=== PATIENT | male | born 1940 | race Hispanic/Latino ===

== ENCOUNTER 2019-01-12 14:28 | Emergency (ER) | payer MEDICARE ==
--- OUTSIDE RECORDS SUMMARY | 2019-01-12 14:34 | XMS REPORT | Clinical Summary ---
:1940 Author Organization [facility] Address [address] [place] [address] Care Team Providers Name Role Phone Donte Rosas MD Primary Care Provider Allergies Active Allergy Reactions Severity Noted Date Comments Darci Inhibitors 07/28/2016 Medications Medication Sig Dispensed Refills Start Date End Date Status mirtazapine (REMERON) 15 0 05/30/2016 Active MG tablet amLODIPine (NORVASC) 2.5 0 05/24/2016 Active mg tablet levoFLOXacin (LEVAQUIN) Take 250 mg by 0 Active 500 MG tablet mouth. tamsulosin (FLOMAX) 0.4 mg Take 0.4 mg by 0 Active capsule,extended release mouth. 24hr fludrocortisone 0.1 mg 0 07/07/2016 Active tablet Active Problems Not on file Social History Tobacco Use Types Packs/Day Years Used Date Never Assessed Sex Assigned at Date Recorded Not on file Job Start Date Occupation Industry Not on file Not on file Not on file Travel History Travel Start Travel End No recent travel history available. Last Filed Vital Signs Not on file Plan of Treatment Health Maintenance Due Date Last Done Comments SHINGLES VACCINES (#1) 1988 65+ PNEUMOCOCCAL VACCINE (1 of 2 - PCV13) 2003 INFLUENZA VACCINE 02/17/2019 Results Not on fileafter 01/11/2018 Advance Directives Patient has advance care planning documents on file. For more information, please contact:Jhonatan [id number] [place] [address]
--- OUTSIDE RECORDS SUMMARY | 2019-01-12 14:35 | XMS REPORT | Clinical Summary ---
:1940 Author Organization [facility] Address [address] [place] [address] Care Team Providers Name Role Phone Donte Rosas MD Primary Care Provider Donte Rosas MD Unavailable Allergies Active Allergy Reactions Severity Noted Date Comments Darci Inhibitors Other (See Comments) High 07/27/2015 Hyperkalemia per [facility] file Medications Medication Sig Dispensed Refills Start Date End Date Status mirtazapine (REMERON) Take 15 mg by 0 Active 15 MG tablet mouth nightly. SODIUM BICARBONATE Take by mouth 0 Active ORAL 3 (three) times daily. acetaminophen Take 500 mg 0 Active (TYLENOL) 500 MG by mouth tablet every 6 (six) hours as needed for Pain. aspirin 81 MG EC Take 81 mg by 0 Active tablet mouth daily. amLODIPine (NORVASC) Take 1 tablet 30 tablet 1 10/03/2017 Active 2.5 MG tablet (2.5 mg total) by mouth daily. tamsulosin (FLOMAX) Take 0.4 mg 0 Active 0.4 mg Cp24 24 hr by mouth capsule daily. citalopram (CELEXA) Take 20 mg by 0 Active 20 MG tablet mouth daily. gabapentin Take 300 mg 0 Active (NEURONTIN) 300 MG by mouth capsule daily. cilostazol (PLETAL) Take 50 mg by 0 Active 50 MG tablet mouth 2 (two) times daily. clopidogrel (PLAVIX) Take 75 mg by 0 Active 75 mg tablet mouth daily. amLODIPine (NORVASC) Take 2.5 mg 0 Active 2.5 MG tablet by mouth daily. gabapentin 2 (two) times 0 03/21/2018 Active (NEURONTIN) 300 MG daily. capsule citalopram (CELEXA) Take 20 mg by 0 Active 20 MG tablet mouth daily. aspirin 81 MG EC Take 81 mg by 0 Active tablet mouth daily. cilostazol (PLETAL) Take 50 mg by 0 Active 50 MG tablet mouth 2 (two) times daily. sodium bicarbonate Take 1 tablet 0 Active 650 MG tablet by mouth 3 (three) times daily. citalopram (CELEXA) Take 20 mg by 0 Discontinued 10 MG tablet mouth daily . 8 fludrocortisone Take 1 tablet 15 tablet 1 01/31/2017 Discontinued (FLORINEF) 0.1 mg (0.1 mg 8 tablet total) by mouth every other day. atorvastatin Take 1 tablet 30 tablet 1 10/03/2017 (LIPITOR) 10 MG (10 mg total) 9 tablet by mouth nightly. clopidogrel (PLAVIX) Take 1 tablet 30 tablet 1 10/03/2017 Discontinued 75 mg tablet (75 mg total) 8 by mouth daily. HYDROcodone-acetamino Take 1 tablet 30 tablet 0 01/31/2018 phen (NORCO 10-325) by mouth 8 10-325 mg per tablet every 4 (four) hours as needed for up to 10 days. Max Daily Amount: 6 tablets acetaminophen-codeine Take 1 tablet 15 tablet 0 04/12/2018 (TYLENOL #3) 300-30 by mouth 8 mg per tablet every 6 (six) hours as needed for up to 10 days. Max Daily Amount: 4 tablets ibuprofen Take 1 tablet 15 tablet 0 04/12/2018 (ADVIL,MOTRIN) 400 MG (400 mg 8 tablet total) by mouth every 8 (eight) hours as needed for Pain for up to 3 days. cephalexin (KEFLEX) Take 1 14 capsule 0 04/12/2018 500 MG capsule capsule (500 8 mg total) by mouth 2 (two) times daily for 7 days. Active Problems Problem Noted Date Claudication 10/02/2017 Eosinophilia 01/29/2017 Lower extremity pain, left 01/28/2017 Critical lower limb ischemia 01/23/2017 Cellulitis of foot 01/17/2017 PAD (peripheral artery disease) 01/16/2017 Cellulitis and abscess of foot 01/15/2017 HTN (hypertension) 01/11/2016 Hydronephrosis 01/11/2016 Depression 01/11/2016 Urinary tract infection, site unspecified 01/10/2016 Urinary obstruction 07/27/2015 Hyperkalemia 06/28/2015 Hyponatremia 06/28/2015 Chronic kidney disease, stage 3 06/28/2015 Cellulitis of left foot 06/28/2015 Onychomycosis 06/28/2015 CKD (chronic kidney disease) stage 2, GFR 60-89 ml/min 06/28/2015 DOMINIQUE (acute kidney injury) 06/01/2015 Bladder cancer 08/21/2014 Encounters Date Type Specialty Care Team Description 08/31/2018 Outside Orders Central Scheduling Antolin Valera Malignant neoplasm of overlapping sites of bladder (HCC) (Primary Dx); MD Nikolai Prostate cancer (HCC); Calicectasis; Renal mass, right 04/12/2018 Emergency Emergency Medicine Polanco, Kiko Right hip pain ( Primary Dx); MD Connor Peripheral arterial disease ([facility]); Arterial stenosis ([facility]); Back pain, unspecified back location, unspecified back pain laterality , unspecified chronicity 01/28/2018 Surgery Filipe Marte BYPASS,POPLITEAL-TIBI MD Phil [place] 01/28/2018 Anesthesia Event Diamond Hand NP 01/28/2018 - Hospital Encounter Cardiology Filipe Marte DOMINIQUE (acute kidney injury) ([facility]); 01/31/2018 MD Phil PAD (peripheral artery disease) ([facility]); Beverly Harris At high risk for hemodynamic instability; MD Bradley Claudication ([facility]); Critical lower limb ischemia; Essential hypertension; Hyperlipidemia, unspecified hyperlipidemia type; Acute postoperative pain 01/18/2018 Hospital Encounter Pre-Admission Filipe Marte DOMINIQUE (acute kidney Testing MD Phil injury) ([facility]) 01/18/2018 Orders Only General Internal Medicine after 01/11/2018 Immunizations Name Dates Previously Given Next Due Pneumococcal Polysaccharide (Pneumovax) 06/29/2015 Social History Tobacco Use Types Packs/Day Years Used Date Never Assessed Alcohol Use Drinks/Week oz/Week Comments No Sex Assigned at Date Recorded Not on file Job Start Date Occupation Industry Not on file Not on file Not on file Travel History Travel Start Travel End No recent travel history available. Last Filed Vital Signs Vital Sign Reading Time Taken Blood Pressure 145/76 04/12/2018 2:46 PM CDT Pulse 55 04/12/2018 2:46 PM CDT Temperature 36 C (96.8 F) 04/12/2018 8:54 AM CDT Respiratory Rate 18 04/12/2018 2:46 PM CDT Oxygen Saturation 96% 04/12/2018 2:46 PM CDT Inhaled Oxygen Concentration - - Weight 81.6 kg (180 lb) 04/12/2018 8:54 AM CDT Height 162.6 cm (5' 4") 04/12/2018 8:54 AM CDT Body Mass Index 30.9 04/12/2018 8:54 AM CDT Plan of Treatment Not on file Implants Implanted Type Area Photo Editor Device Shelf Model / Identifier Expiration Serial / Date Lot Mynxgrip Vascular Closure Device Df Cardiovascular Left: [id number] 01/16 [id number] / Implanted: Qty: 1 on 01/30/2017 by Filipe Marte MD [facility] / [id number] Mynxgrip Vascular Closure Device Cardiovascular Left: CARDINAL [id number] 08/19/2019 / Implanted: Qty: 1 on 10/02/2017 by Filipe Marte MD [employer] / MARS [id number] Matrix Floseal Hemo W/O Ndl 10 [id number] - [id number] Cement/Filler/Ad Left: GARCIA:BIOSCI 06/22/2019 [id number] / Implanted: Qty: 1 on 01/28/2018 by Filipe Marte MD [employer] / [id number] Synergy Stents-Periphera BOSTON [id number] 05/27/2017 [id number] / Implanted: Qty: 1 on 01/30/2017 by Filipe Marte MD l [employer] / [id number] Promus Premier Stents-Periphera BOSTON [id number] 04/04/2018 [id number] / Implanted: Qty: 1 on 01/30/2017 by Filipe Marte MD l [employer] / [id number] Promus Premier Stents-Periphera [place]OSTON [id number] 01/19/2018 [id number] / Implanted: Qty: 1 on 01/30/2017 by Filipe Marte MD l [employer] / [id number] Promus Premier Stents-Periphera [place] [id number] 03/29/2018 [id number] / Implanted: Qty: 1 on 01/30/2017 by Filipe Marte MD l [employer] / [id number] Procedures Procedure Name Priority Date/Time Associated Comments Diagnosis RHYTHM STRIP - SCAN 04/13/2018 12:22 PM CDT PERIPHERAL VASCULAR 04/13/2018 12:22 REPORT - SCAN PM CDT CARDIAC CATH REPORT - 04/13/2018 12:22 SCAN PM CDT PERIPHERAL VASCULAR 04/13/2018 12:21 REPORT - SCAN PM CDT CARDIAC CATH REPORT - 04/13/2018 12:21 SCAN PM CDT RHYTHM STRIP - SCAN 04/13/2018 12:21 PM CDT TRANSFUSION SERVICE 04/13/2018 12:21 REPORT - SCAN PM CDT RHYTHM STRIP - SCAN 04/13/2018 12:21 PM CDT CARDIAC CATH REPORT - 04/13/2018 12:21 SCAN PM CDT RHYTHM STRIP - SCAN 04/13/2018 12:21 PM CDT PERIPHERAL VASCULAR 04/13/2018 12:21 REPORT - SCAN PM CDT RHYTHM STRIP - SCAN 04/13/2018 12:21 PM CDT RHYTHM STRIP - SCAN 04/13/2018 12:21 PM CDT RHYTHM STRIP - SCAN 04/13/2018 12:21 PM CDT RHYTHM STRIP - SCAN 04/13/2018 12:21 PM CDT RHYTHM STRIP - SCAN 04/13/2018 12:20 PM CDT RHYTHM STRIP - SCAN 04/13/2018 12:20 PM CDT RHYTHM STRIP - SCAN 04/13/2018 12:20 PM CDT RHYTHM STRIP - SCAN 04/13/2018 12:20 PM CDT ARTERIAL DOPPLER LEG, STAT 04/12/2018 11:51 Results for this RIGHT AM CDT procedure are in the results section. XR SPINE LUMBAR STAT 04/12/2018 10:01 Results for this COMPLETE MIN 4 VIEWS AM CDT procedure are in the results section. XR HIP RIGHT 2 VIEW STAT 04/12/2018 10:01 Results for this AM CDT procedure are in the results section. URINALYSIS W/ STAT 04/12/2018 9:47 Results for this MICROSCOPIC AM CDT procedure are in the results section. CBC W/PLT COUNT & STAT 04/12/2018 9:15 Results for this AUTO DIFFERENTIAL AM CDT procedure are in the results section. HEPATIC FUNCTION STAT 04/12/2018 9:15 Results for this PANEL AM CDT procedure are in the results section. CBC W/PLT COUNT & STAT 04/12/2018 9:15 Results for this AUTO DIFFERENTIAL AM CDT procedure are in the results section. BASIC METABOLIC PANEL STAT 04/12/2018 9:15 Results for this (7) AM CDT procedure are in the results section. PHOSPHORUS Routine 01/31/2018 4:47 Results for this AM CDT procedure are in the results section. MAGNESIUM Routine 01/31/2018 4:47 Results for this AM CDT procedure are in the results section. BASIC METABOLIC PANEL Routine 01/31/2018 4:47 Results for this (7) AM CDT procedure are in the results section. CBC (HEMOGRAM ONLY) Routine 01/31/2018 4:47 Results for this AM CDT procedure are in the results section. POCT-GLUCOSE METER Routine 01/30/2018 7:41 Results for this AM CDT procedure are in the results section. PHOSPHORUS Routine 01/30/2018 4:59 Results for this AM CDT procedure are in the results section. MAGNESIUM Routine 01/30/2018 4:59 Results for this AM CDT procedure are in the results section. BASIC METABOLIC PANEL Routine 01/30/2018 4:59 Results for this (7) AM CDT procedure are in the results section. CBC (HEMOGRAM ONLY) Routine 01/30/2018 4:59 Results for this AM CDT procedure are in the results section. POCT-GLUCOSE METER Routine 01/29/2018 9:26 Results for this PM CDT procedure are in the results section. PHOSPHORUS Routine 01/29/2018 3:25 Results for this AM CDT procedure are in the results section. MAGNESIUM Routine 01/29/2018 3:25 Results for this AM CDT procedure are in the results section. BASIC METABOLIC PANEL Routine 01/29/2018 3:25 Results for this (7) AM CDT procedure are in the results section. CBC (HEMOGRAM ONLY) Routine 01/29/2018 3:25 Results for this AM CDT procedure are in the results section. BASIC METABOLIC PANEL STAT 01/28/2018 2:38 Results for this (7) PM CDT procedure are in the results section. APTT STAT 01/28/2018 2:38 Results for this PM CDT procedure are in the results section. CBC (HEMOGRAM ONLY) STAT 01/28/2018 2:38 Results for this PM CDT procedure are in the results section. POCT-ACT Routine 01/28/2018 12:52 Results for this PM CDT procedure are in the results section. POCT-ACT Routine 01/28/2018 12:27 Results for this PM CDT procedure are in the results section. POCT-ACT Routine 01/28/2018 12:01 Results for this PM CDT procedure are in the results section. POCT-ACT Routine 01/28/2018 11:26 Results for this AM CDT procedure are in the results section. HGB/HCT (H&H) - STAT Routine 01/28/2018 11:02 Results for this LAB AM CDT procedure are in the results section. GLUCOSE-STAT LAB Routine 01/28/2018 11:02 Results for this AM CDT procedure are in the results section. POTASSIUM-STAT LAB Routine 01/28/2018 11:02 Results for this AM CDT procedure are in the results section. SODIUM NA-STAT LAB Routine 01/28/2018 11:02 Results for this AM CDT procedure are in the results section. BLOOD GAS, ARTERIAL Routine 01/28/2018 11:02 Results for this AM CDT procedure are in the results section. CALCIUM, IONIZED Routine 01/28/2018 11:02 Results for this AM CDT procedure are in the results section. RRL CRITICAL LABS Routine 01/28/2018 11:02 Results for this (ABG,NA,K,H&H,GLUCOSE AM CDT procedure are in ) the results section. POCT-ACT Routine 01/28/2018 10:53 Results for this AM CDT procedure are in the results section. POCT-ACT Routine 01/28/2018 10:18 Results for this AM CDT procedure are in the results section. HGB/HCT (H&H) - STAT Routine 01/28/2018 10:07 Results for this LAB AM CDT procedure are in the results section. GLUCOSE-STAT LAB Routine 01/28/2018 10:07 Results for this AM CDT procedure are in the results section. POTASSIUM-STAT LAB Routine 01/28/2018 10:07 Results for this AM CDT procedure are in the results section. SODIUM NA-STAT LAB Routine 01/28/2018 10:07 Results for this AM CDT procedure are in the results section. BLOOD GAS, ARTERIAL Routine 01/28/2018 10:07 Results for this AM CDT procedure are in the results section. CALCIUM, IONIZED Routine 01/28/2018 10:07 Results for this AM CDT procedure are in the results section. RRL CRITICAL LABS Routine 01/28/2018 10:07 Results for this (ABG,NA,K,H&H,GLUCOSE AM CDT procedure are in ) the results section. HGB/HCT (H&H) - STAT Routine 01/28/2018 8:23 Results for this LAB AM CDT procedure are in the results section. GLUCOSE-STAT LAB Routine 01/28/2018 8:23 Results for this AM CDT procedure are in the results section. POTASSIUM-STAT LAB Routine 01/28/2018 8:23 Results for this AM CDT procedure are in the results section. SODIUM NA-STAT LAB Routine 01/28/2018 8:23 Results for this AM CDT procedure are in the results section. BLOOD GAS, ARTERIAL Routine 01/28/2018 8:23 Results for this AM CDT procedure are in the results section. CALCIUM, IONIZED Routine 01/28/2018 8:23 Results for this AM CDT procedure are in the results section. RRL CRITICAL LABS Routine 01/28/2018 8:23 Results for this (ABG,NA,K,H&H,GLUCOSE AM CDT procedure are in ) the results section. BYPASS,POPLITEAL-TIBI 01/28/2018 7:30 Ischemic leg AL AM CDT Case Notes LEFT LOWER EXTREMITY DISTAL VENOUS ARTERIALIZATION CBC W/PLT COUNT & AUTO Routine 01/28/2018 6:07 AM CDT Results for this DIFFERENTIAL procedure are in the results section. TYPE AND SCREEN, AUTOMATED Routine 01/28/2018 6:07 AM CDT PROTHROMBIN TIME/INR Routine 01/28/2018 6:07 AM CDT CBC W/PLT COUNT & AUTO Routine 01/28/2018 6:07 AM CDT Results for this DIFFERENTIAL procedure are in the results section. BUN Routine 01/28/2018 6:07 AM CDT ECG 12-LEAD Routine 01/18/2018 8:22 AM CDT Procedure Note - Interface, External Ris In - 01/18/2018 8:38 AM CDT Ventricular Rate 48 BPM Atrial Rate 48 BPM P-R Interval 208 ms QRS Duration 86 ms Q-T Interval 450 ms QTC Calculation(Bazett) 402 ms P [place] 40 degrees R [place] 1 degrees T [place] 67 degrees Sinus bradycardia T wave abnormality, consider lateral ischemia Abnormal ECG When compared with ECG of 23-JAN-2017 12:31, No significant change was found ECG 12-LEAD Routine 01/18/2018 8:22 AM CDT GLUCOSE Routine 01/18/2018 8:19 AM CDT BUN AND CREATININE Routine 01/18/2018 8:19 AM CDT ELECTROLYTE PANEL Routine 01/18/2018 8:19 AM CDT HEMOGLOBIN Routine 01/18/2018 8:19 AM CDT after 01/11/2018 Results RHYTHM STRIP - SCAN (04/13/2018 12:22 PM CDT)Only the most recent of12 resultswithin the time period is included. Narrative Performed At PERIPHERAL VASCULAR REPORT - SCAN (04/13/2018 12:22 PM CDT)Only the most recent of3 resultswithin the time period is included. Narrative Performed At CARDIAC CATH REPORT - SCAN (04/13/2018 12:22 PM CDT) Narrative Performed At CARDIAC CATH REPORT - SCAN (04/13/2018 12:21 PM CDT) Narrative Performed At TRANSFUSION SERVICE REPORT - SCAN (04/13/2018 12:21 PM CDT) Narrative Performed At CARDIAC CATH REPORT - SCAN (04/13/2018 12:21 PM CDT) Narrative Performed At Arterial doppler leg, right (04/12/2018 11:51 AM CDT) Ejection [facility] Specimen Impressions Performed At Right Impression [facility] 1. There is diffuse calcified plaque in the common femoral, profunda femoral, superficial femoral and popliteal arteries with biphasic Doppler waveforms. 2. There is >50% stenosis in the distal posterior tibial with collateral flow. The proximal posterior tibial artery is small in caliber, calcified with no demonstrable flow. 3. There is >50% stenosis in the peroneal artery with a velocity of 171 cm/sec. 4. There is stenosis in the anterior tibial artery with monophasic Doppler waveforms throughout. 5. The PT pressure is 77 mmHg with an AMOL of 0.62, within moderate obstruction range. 6. The DP pressure is not assessed due to no audible signal. 7. The great toe pressure is not assessed due to significant flow decreased by PPG waveform. 8. The digits have decrease flow by PPG waveforms. Left Impression 1. There is monophasic Doppler waveform in the posterior tibial and dorsalis pedis arteries. 2. The PT pressure is 84 mmHg with an AMOL of 0.68 and the DP pressure is 58 mmHg with an AMOL of 0.47, within moderate/severe obstruction range. 3. The great toe pressure is 46 mmHg with a normal TBI of 0.37. 4. The digits have decrease flow by PPG waveforms. Conclusions Summary Arterial pressures, Duplex imaging and Doppler analysis were performed on the right lower extremity. On the right, there was diffuse calcified plaque in the common femoral, profunda femoral, superficial femoral and popliteal arteries with biphasic Doppler waveforms. There was >50% stenosis in the distal posterior tibial with collateral flow. The proximal posterior tibial artery was small in caliber, calcified with no demonstrable flow. There was >50% stenosis in the peroneal artery. There was stenosis in the anterior tibial artery with monophasic Doppler waveforms. AMOL's were within moderate obstruction range. DP AMOL was not assessed due to no audible signal. The great toe pressure was not assessed due to significant flow decreased by PPG waveform. The digits had decreased flow by PPG waveforms. On the left, there was monophasic Doppler waveform in the posterior tibial and dorsalis pedis arteries. AMOL's were within within moderate/severe obstruction range. TBI was abnormal. The digits had decreased flow by PPG waveforms. Signature Velocities are measured in cm/s ; Diameters are measured in cm LE Duplex Measurements Right Left + + + + + + + + + + !Location ! !PSV !EDV !Waveform! !PSV !EDV !Waveform! + + + + + + + + + + !Mid Common Femoral ! !90.9! ! ! + + + + + + !Prox PFA ! !72.1! ! ! + + + + + + !Prox SFA ! !73.9! ! ! + + + + + + !Mid SFA ! !87.9! ! ! + + + + + + !Dist SFA ! !79.2! ! ! + + + + + + !Prox Popliteal ! !78! ! ! + + + + + + !Dist Popliteal ! !72.1! ! ! + + + + + + !Mid DENSITY CONTROL PUNCHER ! !42.8!14.1 ! ! + + + + + + !Dist DENSITY CONTROL PUNCHER ! !31.8! ! ! + + + + + + !Prox PJ ! !128 !! ! + + + + + + !Mid PJ ! !75.6! ! ! + + + + + + !Dist PJ ! !123 !! ! + + + + + + !Prox Peroneal ! !164 !! ! + + + + + + !Mid Peroneal ! !109 !! ! + + + + + + !Dist Peroneal ! !101 !! ! + + + + + + Narrative Performed At [facility] - Lower Extremity Arterial Duplex [facility] Demographics Patient Sonny FLOYD, Date of Study 04/12/2018 SHAY Age 77 Visit [id number] GenderMale Date of 1940 Number Referring Sherri Muñiz Number [id number] Physician Marble Carver Kari Sellers InterpretingJ. Rudy Owen RN, Sotero GOVEA, RPVI Procedure Type of Study: Extremities Arteries: Lower Extremities Arterial Duplex, ARTERIAL DOPPLER LEG, RIGHT. Indications for Study:Leg pain . Patient Status:STAT. Study Location:Vascular Lab. Technical Quality:Adequate visualization. Risk Factors History of Disease + +----+ + !Diagnosis !Date!Comments ! + +----+ + !History/Risk Factors: !!HTN, PVD ! !! !right 3rd toe amputation, left leg sugery ! + +----+ + Procedure Note Interface, External Ris In - 04/12/2018 3:53 PM CDT [facility] - Lower Extremity Arterial Duplex Demographics Patient Name EVER FLOYD, Date of Study 04/12/2018 SHAY Age 77 Visit Number [id number] Gender Male Date of 1940 Number Referring Sherri Ryan Room Number [id number] Physician Marble Carver Kari Sellers Interpreting Yanely Owen RN, RVT Physician MD, RPVI Procedure Type of Study: Extremities Arteries: Lower Extremities Arterial Duplex, ARTERIAL DOPPLER LEG, RIGHT. Indications for Study:Leg pain . Patient Status:STAT. Study Location:Vascular Lab. Technical Quality:Adequate visualization. Risk Factors History of Disease + +----+ + !Diagnosis !Date!Comments ! + +----+ + !History/Risk Factors: ! !HTN, PVD ! ! ! !right 3rd toe amputation, left leg sugery ! + +----+ + Impressions Right Impression 1. There is diffuse calcified plaque in the common femoral, profunda femoral, superficial femoral and popliteal arteries with biphasic Doppler waveforms. 2. There is >50% stenosis in the distal posterior tibial with collateral flow. The proximal posterior tibial artery is small in caliber, calcified with no demonstrable flow. 3. There is >50% stenosis in the peroneal artery with a velocity of 171 cm/sec. 4. There is stenosis in the anterior tibial artery with monophasic Doppler waveforms throughout. 5. The PT pressure is 77 mmHg with an AMOL of 0.62, within moderate obstruction range. 6. The DP pressure is not assessed due to no audible signal. 7. The great toe pressure is not assessed due to significant flow decreased by PPG waveform. 8. The digits have decrease flow by PPG waveforms. Left Impression 1. There is monophasic Doppler waveform in the posterior tibial and dorsalis pedis arteries. 2. The PT pressure is 84 mmHg with an AMOL of 0.68 and the DP pressure is 58 mmHg with an AMOL of 0.47, within moderate/severe obstruction range. 3. The great toe pressure is 46 mmHg with a normal TBI of 0.37. 4. The digits have decrease flow by PPG waveforms. Conclusions Summary Arterial pressures, Duplex imaging and Doppler analysis were performed on the right lower extremity. On the right, there was diffuse calcified plaque in the common femoral, profunda femoral, superficial femoral and popliteal arteries with biphasic Doppler waveforms. There was >50% stenosis in the distal posterior tibial with collateral flow. The proximal posterior tibial artery was small in caliber, calcified with no demonstrable flow. There was >50% stenosis in the peroneal artery. There was stenosis in the anterior tibial artery with monophasic Doppler waveforms. AMOL's were within moderate obstruction range. DP AMOL was not assessed due to no audible signal. The great toe pressure was not assessed due to significant flow decreased by PPG waveform. The digits had decreased flow by PPG waveforms. On the left, there was monophasic Doppler waveform in the posterior tibial and dorsalis pedis arteries. AMOL's were within within moderate/severe obstruction range. TBI was abnormal. The digits had decreased flow by PPG waveforms. Signature Velocities are measured in cm/s ; Diameters are measured in cm LE Duplex Measurements Right Left + + + ------+ + + + +-------- + + !Location ! !PSV !EDV !Waveform ! !PSV !EDV !Waveform ! + + + ------+ + + + +-------- + + !Mid Common Femoral ! !90.9 ! ! ! + + + ------+ + + !Prox PFA ! !72.1 ! ! ! + + + ------+ + + !Prox SFA ! !73.9 ! ! ! + + + ------+ + + !Mid SFA ! !87.9 ! ! ! + + + ------+ + + !Dist SFA ! !79.2 ! ! ! + + + ------+ + + !Prox Popliteal ! !78 ! ! ! + + + ------+ + + !Dist Popliteal ! !72.1 ! ! ! + + + ------+ + + !Mid DENSITY CONTROL PUNCHER ! !42.8 !14.1 ! ! + + + ------+ + + !Dist DENSITY CONTROL PUNCHER ! !31.8 ! ! ! + + + ------+ + + !Prox PJ ! !128 ! ! ! + + + ------+ + + !Mid PJ ! !75.6 ! ! ! + + + ------+ + + !Dist PJ ! !123 ! ! ! + + + ------+ + + !Prox Peroneal ! !164 ! ! ! + + + ------+ + + !Mid Peroneal ! !109 ! ! ! + + + ------+ + + !Dist Peroneal ! !101 ! ! ! + + + ------+ + + Performing Organization Address [facility] [place], [place] Phone Number [facility] XR hip 2 views right (04/12/2018 10:01 AM CDT) Specimen Narrative Performed At FINAL REPORT [employer] CLINICAL HISTORY: LEG PAIN BACK PAIN HIP PAIN TECHNIQUE: 2 views of the right hip COMPARISON: None IMPRESSION: There are degenerative changes of the right hip without evidence of fracture or dislocation. Signed: Tish Tena MD Report Verified Date/Time:04/12/2018 10:42:38 Reading Location: [facility] Reading Room Procedure Note Interface, External Ris In - 04/12/2018 10:52 AM CDT FINAL REPORT CLINICAL HISTORY: LEG PAIN BACK PAIN HIP PAIN TECHNIQUE: 2 views of the right hip COMPARISON: None IMPRESSION: There are degenerative changes of the right hip without evidence of fracture or dislocation. Signed: Tish Tena MD Report Verified Date/Time: 04/12/2018 10:42:38 Reading Location: [facility] Radiology Reading Room Performing Organization Address [facility] [place], [place] Phone Number ProtoShare XR spine lumbar complete 4 views min (04/12/2018 10:01 AM CDT) Specimen Narrative Performed At FINAL REPORT [facility] CLINICAL HISTORY: LEG PAIN BACK PAIN HIP PAIN TECHNIQUE: Five views of the lumbar spine. 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 There is no evidence for lumbar fracture or dislocation. There are multiple abdominal pelvic surgical clips. Signed: Tish Tena MD Report Verified Date/Time:04/12/2018 10:47:57 Reading Location: [facility] Radiology Reading Room Procedure Note Interface, External Ris In - 04/12/2018 10:52 AM CDT FINAL REPORT CLINICAL HISTORY: LEG PAIN BACK PAIN HIP PAIN TECHNIQUE: Five views of the lumbar spine. 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 There is no evidence for lumbar fracture or dislocation. There are multiple abdominal pelvic surgical clips. Signed: Tish Tena MD Report Verified Date/Time: 04/12/2018 10:47:57 Reading Location: [facility] Radiology Reading Room Performing Organization Address City/State/Zipcode Phone Number [facility] Urinalysis w/Microscopic (04/12/2018 9:47 AM CDT) Color, UA Light Yellow [facility] Clarity, UA Clear [facility] Specific [place], UA 1.008 1.001 - 1.035 [facility] pH, UA 6.5 5.0 - 8.0 [facility] Protein, UA Negative Negative [facility] Glucose, UA Negative Negative [facility] Ketones, UA Negative Negative [facility] Bilirubin, UA Negative Negative [facility] Blood, UA Trace (A) Negative [facility] Nitrite, UA Negative Negative [facility] Leukocytes, UA Moderate (A) Negative [facility] Urobilinogen, UA 0.2 0.2 - 1.0 mg/dL [facility] RBC, UA 4 /HPF [facility] WBC, UA 34 /HPF [facility] Bacteria, UA Moderate [facility] Mucus Rare [facility] Specimen Source Urine, Clean Catch [facility] Specimen Urine Performing Organization Address City/State/Zipcode Phone Number [facility] [address] [place] [address] CENTER CBC with platelet count + automated diff (04/12/2018 9:15 AM CDT)Only the most recent of2 resultswithin the time period is included. WBC 8.0 3.5 - 10.5 K/L [facility] RBC 5.17 4.63 - 6.08 M/L [facility] Hemoglobin 14.0 13.7 - 17.5 GM/DL [facility] Hematocrit 45.0 40.1 - 51.0 % [facility] MCV 87.0 79.0 - 92.2 fL [facility] MCH 27.1 25.7 - 32.2 pg [facility] MCHC 31.1 (L) 32.3 - 36.5 GM/DL [facility] RDW 13.3 11.6 - 14.4 % [facility] Platelets 189 150 - 450 K/CU MM [facility] MPV 10.4 9.4 - 12.4 fL [facility] nRBC 0 0 - 0 /100 WBC [facility] % Neutros 72 % [facility] % Lymphs 20 % [facility] % Monos 7 % [facility] % Eos 1 % [facility] % Baso 1 % [facility] # Neutros 5.73 (H) 1.78 - 5.38 K/L [facility] # Lymphs 1.56 1.32 - 3.57 K/L [facility] # Monos 0.58 0.30 - 0.82 K/L [facility] # Eos 0.09 0.04 - 0.54 K/L [facility] # Baso 0.04 0.01 - 0.08 K/L [facility] Immature Granulocytes-Relative 0 0 - 1 % [facility] Specimen Blood Performing Organization Address City/[facility] Phone Number [address] [address] [phone] [place] Hepatic function panel (04/12/2018 9:15 AM CDT) Protein, Total 7.2Comment: Specimen 6.0 - 8.3 gm/dL [facility] hemolyzed [facility] Albumin 4.2Comment: Specimen 3.5 - 5.0 g/dL [facility] Total Bilirubin 0.7Comment: Specimen 0.2 - 1.2 mg/dL [facility] Bilirubin, Direct 0.3Comment: Specimen 0.1 - 0.5 mg/dL [facility] Alkaline Phosphatase 80 40 - 150 U/L [facility] AST 23Comment: Specimen 5 - 34 U/L [facility] hemolyzed [facility] ALT 26Comment: Specimen 6 - 55 U/L [facility] Specimen Blood Performing Organization Address City/[facility] Cent[facility]ode Phone Number [address] [address] [phone] [place] Basic Metabolic Panel (04/12/2018 9:15 AM CDT)Only the most recent of5 resultswithin the time period is included. Sodium 137 136 - 145 meq/L [facility] Potassium 4.7Comment: Specimen slightly 3.5 - 5.1 meq/L [facility] hemolyzed [facility] Chloride 108 (H) 98 - 107 meq/L [facility] CO2 23 22 - 29 meq/L [facility] BUN 87 (H) 7 - 21 mg/dL [facility] Creatinine 1.67 (H)Comment: Specimen 0.57 - 1.25 mg/dL [facility] slightly hemolyzed [facility] Glucose 92 70 - 105 mg/dL [facility] Calcium 8.9 8.4 - 10.2 mg/dL [facility] EGFR Comment: INSUFFICIENT CLINICAL mL/min/1.73 sq m [facility] DATA TO CALCULATE ESTIMATED [facility] CENTER GFR. Specimen Blood Performing Organization Address City/State/Zipcode Phone Number [facility] [address] [place] [address] CENTER CBC (Hemogram only) (01/31/2018 4:47 AM CDT)Only the most recent of4 resultswithin the time period is included. WBC 5.5 3.5 - 10.5 K/L [facility] RBC 4.26 (L) 4.63 - 6.08 M/L [facility] Hemoglobin 12.3 (L) 13.7 - 17.5 GM/DL [facility] Hematocrit 37.8 (L) 40.1 - 51.0 % [facility] MCV 88.7 79.0 - 92.2 fL [facility] MCH 28.9 25.7 - 32.2 pg [facility] MCHC 32.5 32.3 - 36.5 GM/DL [facility] RDW 14.3 11.6 - 14.4 % [facility] Platelets 129 (L) 150 - 450 K/CU MM [facility] MPV 10.7 9.4 - 12.4 fL [facility] nRBC 0 0 - 0 /100 WBC [facility] Specimen Blood Performing Organization Address City/[facility] Cent[facility]ode Phone Number [address] [phone] CENTER Phosphorus (01/31/2018 4:47 AM CDT)Only the most recent of3 resultswithin the time period is included. Phosphorus 2.9 2.3 - 4.7 mg/dL [facility] Specimen Blood Performing Organization Address City/[facility] Phone Number [address] [address] CENTER Magnesium (01/31/2018 4:47 AM CDT)Only the most recent of3 resultswithin the time period is included. Magnesium 2.0 1.6 - 2.6 mg/dL [facility] Specimen Blood Performing Organization Address [facility] [place], [place] Phone Number [address] [address] [phone] [place] POC-Glucose meter (01/30/2018 7:41 AM CDT)Only the most recent of2 resultswithin the time period is included. POC-Glucose Meter 109Comment: TESTED AT 70 - 110 mg/dL [address] [id number] Specimen Blood Performing Organization Address [facility] [place], [place] Phone Number [address] [phone] CENTER aPTT (01/28/2018 2:38 PM CDT) PTT 31.2 22.5 - 36.0 seconds [facility] Specimen Blood Performing Organization Address [facility] Phone Number [address] [phone] [place] POC ACTIVATED CLOTTING TIME (01/28/2018 12:52 PM CDT)Only the most recent of6 resultswithin the time period is included. Activated Clotting Time 120Comment: TESTED AT sec [place] [id number] Specimen Blood Performing Organization Address [facility] [place], [place] Phone Number [address] [address] [place] Potassium-Stat Lab (01/28/2018 11:02 AM CDT)Only the most recent of3 resultswithin the time period is included. Potassium 4.2 3.6 - 5.5 meq/L [facility] Specimen Blood, Arterial Performing Organization Address [facility] [place] [place] Phone Number [address] [phone] [place] Sodium Na-Stat Lab (01/28/2018 11:02 AM CDT)Only the most recent of3 resultswithin the time period is included. Sodium 137 135 - 148 meq/L [facility] Specimen Blood, Arterial Performing Organization Address [facility] [place], [place] Phone Number [address] [address] [place] Glucose-Stat Lab (01/28/2018 11:02 AM CDT)Only the most recent of3 resultswithin the time period is included. Glucose 104 70 - 110 mg/dL [facility] Specimen Blood, Arterial Performing Organization Address [facility] [place], [place] Phone Number [address] [phone] [place] HGB/HCT (H&H)-Stat Lab (01/28/2018 11:02 AM CDT)Only the most recent of3 resultswithin the time period is included. Hemoglobin 14.1 13.0 - 16.8 g/dL [facility] Hematocrit 41.0 40.0 - 50.0 % [facility] Specimen Blood, Arterial Performing Organization Address [facility] Phone Number [address] [address] [phone] CENTER Calcium, Ionized (01/28/2018 11:02 AM CDT)Only the most recent of3 resultswithin the time period is included. Calcium, Ion 1.12 1.12 - 1.27 mmol/L [facility] pH, Blood 7.40 [facility] Specimen Blood Performing Organization Address [facility] [place], [place] Phone Number [address] [address] [phone] [place] Blood gas, arterial (01/28/2018 11:02 AM CDT)Only the most recent of3 resultswithin the time period is included. pH, Arterial 7.41 7.35 - 7.45 [facility] pCO2, Arterial 35 35 - 45 mmHg [facility] pO2, Arterial 170 (H) 80 - 90 mmHg [facility] O2 Sat, Arterial 99.2 (H) 96.0 - 97.0 % [facility] HCO3, Arterial 22 21 - 29 mmol/L [facility] Base Excess, Arterial -2.0 -2.0 - 3.0 mmol/L [facility] Patient Temperature 36.0 C [facility] FIO2 55.0 % [facility] Specimen Blood, Arterial Performing Organization Address City/[facility] Centercode Phone Number [address] [address] [phone] CENTER Type and screen, automated (01/28/2018 6:07 AM CDT) ABO/RH AUTOMATED (BEAKER) O POSITIVE [facility] Ab Scrn NEGATIVE [facility] Specimen Blood Performing Organization Address City/[facility] Centercode Phone Number [facility] [address] [place] [phone] Prothrombin time/INR (01/28/2018 6:07 AM CDT) Protime 14.3 11.7 - 14.7 seconds [facility] INR 1.1 <=5.9 [facility] Specimen Blood Narrative Performed At [facility] RECOMMENDED COUMADIN/WARFARIN INR THERAPY RANGES STANDARD DOSE: 2.0 - 3.0 Includes: PROPHYLAXIS for venous thrombosis, systemic embolization; TREATMENT for venous thrombosis and/or pulmonary embolus. HIGH RISK: Target INR is 2.5-3.5 for patients with mechanical heart valves. Performing Organization Address City/[facility] Centercode Phone Number [address] [address] [phone] CENTER BUN (01/28/2018 6:07 AM CDT) BUN 49 (H) 7 - 21 mg/dL [facility] Specimen Blood Performing Organization Address City/[facility] Phone Number [address] [address] CENTER ECG 12 lead (01/18/2018 8:22 AM CDT) Specimen Narrative Performed At Ventricular Rate 48 BPM GE MUSE Atrial Rate 48 BPM P-R Interval 208 ms QRS Duration 86 ms Q-T Interval 450 ms QTC Calculation(Bazett) 402 ms P [place] 40 degrees R [place] 1 degrees T [place] 67 degrees Sinus bradycardia T wave abnormality, consider lateral ischemia Abnormal ECG When compared with ECG of 23-JAN-2017 12:31, No significant change was found Confirmed by MD Ananth, Dakotah ([id number]) on 01/19/2018 1:29:09 PM Procedure Note Interface, External Ris In - 01/19/2018 1:29 PM CDT Ventricular Rate 48 BPM Atrial Rate 48 BPM P-R Interval 208 ms QRS Duration 86 ms Q-T Interval 450 ms QTC Calculation(Bazett) 402 ms P [place] 40 degrees R [place] 1 degrees T [place] 67 degrees Sinus bradycardia T wave abnormality, consider lateral ischemia Abnormal ECG When compared with ECG of 23-JAN-2017 12:31, No significant change was found Confirmed by MD Ananth, Dakotah ([id number]) on 01/19/2018 1:29:09 PM Performing Organization Address City/[facility]ode Phone Number GE MUSE BUN and Creatinine (01/18/2018 8:19 AM CDT) BUN 55 (H) 7 - 21 mg/dL [facility] Creatinine 1.29 (H)Comment: Specimen 0.57 - 1.25 mg/dL [facility] slightly hemolyzed [facility] EGFR 54Comment: ESTIMATED GFR IS mL/min/1.73 sq m [facility] NOT ACCURATE CREATININE [facility] CENTER CLEARANCE IN PREDICTING GLOMERULAR FILTRATION RATE. ESTIMATED GFR IS NOT APPLICABLE FOR DIALYSIS PATIENTS. Specimen Blood Performing Organization Address [facility] Phone Number [address] [address] CENTER Hemoglobin (01/18/2018 8:19 AM CDT) Hemoglobin 15.9 13.7 - 17.5 GM/DL [facility] Specimen Blood Performing Organization Address [facility] [place], [place] Phone Number [address] [address] CENTER Glucose (01/18/2018 8:19 AM CDT) Glucose 102 70 - 105 mg/dL [facility] Specimen Blood Performing Organization Address [facility] Centercode Phone Number [address] [address] CENTER Electrolytes (01/18/2018 8:19 AM CDT) Sodium 139 136 - 145 meq/L [facility] Potassium 4.9Comment: Specimen slightly 3.5 - 5.1 meq/L [facility] hemolyzed MEDICAL CENTER Chloride 108 (H) 98 - 107 meq/L [facility] CO2 22 22 - 29 meq/L [facility] Specimen Blood Performing Organization Address City/State/Zipcode Phone Number [facility] [address] [place] [address] CENTER after 01/11/2018 Insurance Payer Benefit Plan / Group Subscriber ID Type Phone Address [employer] - MEDICARE AAR/MEDICARE COMPLETE xxxxxxxxx MGD CARE Ever Personal/Family Self 1940 [address] (Home) [phone] [place], [place] (Work) [address] Advance Directives For more information, please contact:[facility] [place], [place] [phone] Code Status Date Activated Date Inactivated Comments Full Code 01/28/2018 5:28 AM 02/01/2018 12:30 AM This code status was determined by: Patient Full Code 10/02/2017 4:04 PM 10/03/2017 2:14 PM This code status was determined by: Patient Full Code 10/02/2017 6:31 AM 10/02/2017 4:04 PM This code status was determined by: Patient Full Code 01/28/2017 11:35 AM 01/31/2017 7:39 PM This code status was determined by: Patient Full Code 01/23/2017 10:58 AM 01/23/2017 11:08 PM This code status was determined by: Patient
--- OUTSIDE RECORDS SUMMARY | 2019-01-12 14:37 | XMS REPORT ---
:1940 [facility] [address] [place] [address] [address] [place] [address] Care Team Providers Name Role Phone SHIRA HIGH Unavailable Unavailable FLORY LESLIE Unavailable Unavailable SAMKIRSTY, ANABELLE GAO Unavailable Unavailable MARÍA POLANCO Unavailable Unavailable NICOLEUNG, SUMI MEMBRENO Unavailable Unavailable Problems This patient has no known problems. Allergies, Adverse Reactions, Alerts This patient has no known allergies or adverse reactions. Medications This patient has no known medications. Results Test Description Test Time Test Comments Text Results Atomic Results Result Comments RAD, SPINE, 2018-04-12 10:47:00 Reason for exam:->LEG FINAL REPORT PATIENT ID: LUMBAR, COMPLETE PAINReason for [id number] CLINICAL (MIN 4 VIEWS) exam:->BACK HISTORY: LEG PAINBACK PAINReason for PAINHIP PAIN TECHNIQUE: exam:->HIP PAIN Five views of the lumbar spine. 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 There is no evidence for lumbar fracture or dislocation. There are multiple abdominal pelvic surgical clips. Signed: Tish Meade Verified Date/Time: 04/12/2018 10:47:57 Reading Location: [facility] Radiology Reading Room , HIP, 2 VIEWS, 2018-04-12 10:42:00 Reason for exam:->LEG FINAL REPORT PATIENT ID: RIGHT PAINReason for [id number] CLINICAL exam:->BACK HISTORY: LEG PAINBACK PAINReason for PAINHIP PAIN TECHNIQUE: exam:->HIP PAIN 2 views of the right hip COMPARISON: None IMPRESSION: There are degenerative changes of the right hip without evidence of fracture or dislocation. Signed: Tish Meade Verified Date/Time: 04/12/2018 10:42:38 [facility] ALYSIS W/ MICROSCOPIC 2018-04-12 10:24:00 Test Item Value Reference Range Comments COLOR (BEAKER) (test hdyz=503) Light Yellow CLARITY (BEAKER) (test qwlc=115) Clear SPECIFIC GRAVITY UA (BEAKER) (test mxvw=905) 1.008 1.001-1.035 PH UA (BEAKER) (test gjvi=896) 6.5 5.0-8.0 PROTEIN UA (BEAKER) (test royi=269) Negative Negative GLUCOSE UA (BEAKER) (test lplx=024) Negative Negative KETONES UA (BEAKER) (test agks=061) Negative Negative BILIRUBIN UA (BEAKER) (test qwjh=878) Negative Negative BLOOD UA (BEAKER) (test korg=158) Trace Negative NITRITE UA (BEAKER) (test vpbe=102) Negative Negative LEUKOCYTE ESTERASE UA (BEAKER) (test qqpa=516) Moderate Negative UROBILINOGEN UA (BEAKER) (test whdk=868) 0.2 mg/dL 0.2-1.0 RBC UA (BEAKER) (test ngtu=910) 4 /HPF WBC UA (BEAKER) (test jxbg=731) 34 /HPF BACTERIA (BEAKER) (test zbhs=197) Moderate MUCUS (BEAKER) (test knya=4307) Rare SOURCE(BEAKER) (test fwyy=9593) Urine, Clean Catch BASIC METABOLIC [id number] 10:05:00 Test Item Value Reference Range Comments SODIUM (BEAKER) (test 137 meq/L 136-145 mils=244) POTASSIUM (BEAKER) (test 4.7 meq/L 3.5-5.1 Specimen slightly xeeo=386) hemolyzed CHLORIDE (BEAKER) (test 108 meq/L 98-107 niqj=769) CO2 (BEAKER) (test 23 meq/L 22-29 xjpi=248) BLOOD UREA NITROGEN 87 mg/dL 7-21 (BEAKER) (test vsbx=634) CREATININE (BEAKER) (test 1.67 mg/dL 0.57-1.25 Specimen slightly yyvt=815) hemolyzed GLUCOSE RANDOM (BEAKER) 92 mg/dL 70-105 (test aoce=950) CALCIUM (BEAKER) (test 8.9 mg/dL 8.4-10.2 lkct=935) EGFR (BEAKER) (test mL/min/1.73 sq m INSUFFICIENT CLINICAL DATA hlvr=2130) TO CALCULATE ESTIMATED GFR. HEPATIC FUNCTION [id number] 09:44:00 Test Item Value Reference Range Comments TOTAL PROTEIN (BEAKER) (test 7.2 gm/dL 6.0-8.3 Specimen slightly hemolyzed seyk=014) ALBUMIN (BEAKER) (test 4.2 g/dL 3.5-5.0 Specimen slightly hemolyzed jowd=2626) BILIRUBIN TOTAL (BEAKER) (test 0.7 mg/dL 0.2-1.2 Specimen slightly hemolyzed zgtc=326) BILIRUBIN DIRECT (BEAKER) (test 0.3 mg/dL 0.1-0.5 Specimen slightly hemolyzed kenc=791) ALKALINE PHOSPHATASE (BEAKER) 80 U/L 40-150 (test jdzy=247) AST (SGOT) (BEAKER) (test 23 U/L 5-34 Specimen slightly hemolyzed xwum=426) ALT (SGPT) (BEAKER) (test 26 U/L 6-55 Specimen slightly hemolyzed pytf=602) CBC W/PLT COUNT & AUTO [id number] 09:27:00 Test Item Value Reference Range Comments WHITE BLOOD CELL COUNT (BEAKER) (test ioai=312) 8.0 K/ L 3.5-10.5 RED BLOOD CELL COUNT (BEAKER) (test llrm=615) 5.17 M/ L 4.63-6.08 HEMOGLOBIN (BEAKER) (test dply=750) 14.0 GM/DL 13.7-17.5 HEMATOCRIT (BEAKER) (test doqa=685) 45.0 % 40.1-51.0 MEAN CORPUSCULAR VOLUME (BEAKER) (test cewr=036) 87.0 fL 79.0-92.2 MEAN CORPUSCULAR HEMOGLOBIN (BEAKER) (test 27.1 pg 25.7-32.2 wugg=345) MEAN CORPUSCULAR HEMOGLOBIN CONC (BEAKER) (test 31.1 GM/DL 32.3-36.5 jcqz=814) RED CELL DISTRIBUTION WIDTH (BEAKER) (test 13.3 % 11.6-14.4 ohrh=051) PLATELET COUNT (BEAKER) (test vimp=644) 189 K/CU MM 150-450 MEAN PLATELET VOLUME (BEAKER) (test repl=267) 10.4 fL 9.4-12.4 NUCLEATED RED BLOOD CELLS (BEAKER) (test 0 /100 WBC 0-0 ikua=065) NEUTROPHILS RELATIVE PERCENT (BEAKER) (test 72 % tttc=594) LYMPHOCYTES RELATIVE PERCENT (BEAKER) (test 20 % deae=452) MONOCYTES RELATIVE PERCENT (BEAKER) (test 7 % qqll=629) EOSINOPHILS RELATIVE PERCENT (BEAKER) (test 1 % kggv=148) BASOPHILS RELATIVE PERCENT (BEAKER) (test 1 % lmba=636) NEUTROPHILS ABSOLUTE COUNT (BEAKER) (test 5.73 K/ L 1.78-5.38 jozd=844) LYMPHOCYTES ABSOLUTE COUNT (BEAKER) (test 1.56 K/ L 1.32-3.57 vvip=400) MONOCYTES ABSOLUTE COUNT (BEAKER) (test 0.58 K/ L 0.30-0.82 oqer=709) EOSINOPHILS ABSOLUTE COUNT (BEAKER) (test 0.09 K/ L 0.04-0.54 zkiv=023) BASOPHILS ABSOLUTE COUNT (BEAKER) (test 0.04 K/ L 0.01-0.08 ufnx=282) IMMATURE GRANULOCYTES-RELATIVE PERCENT (BEAKER) 0 % 0-1 (test ylpo=2019) [id number] 06:07:00 Test Item Value Reference Range Comments PHOSPHORUS (BEAKER) (test czzq=385) 2.9 mg/dL 2.3-4.7 [id number] 06:07:00 Test Item Value Reference Range Comments MAGNESIUM (BEAKER) (test udtm=968) 2.0 mg/dL 1.6-2.6 BASIC METABOLIC [id number] 06:07:00 Test Item Value Reference Range Comments SODIUM (BEAKER) (test 136 meq/L 136-145 dfec=703) POTASSIUM (BEAKER) (test 4.4 meq/L 3.5-5.1 vifk=629) CHLORIDE (BEAKER) (test 105 meq/L 98-107 xong=432) CO2 (BEAKER) (test 23 meq/L 22-29 kysz=219) BLOOD UREA NITROGEN 51 mg/dL 7-21 (BEAKER) (test ydwx=756) CREATININE (BEAKER) (test 1.05 mg/dL 0.57-1.25 kebo=115) GLUCOSE RANDOM (BEAKER) 116 mg/dL 70-105 (test jtps=434) CALCIUM (BEAKER) (test 8.5 mg/dL 8.4-10.2 zgna=331) EGFR (BEAKER) (test 68 mL/min/1.73 sq m ESTIMATED GFR IS NOT phau=9835) ACCURATE CREATININE CLEARANCE IN PREDICTING GLOMERULAR FILTRATION RATE. ESTIMATED GFR IS NOT APPLICABLE FOR DIALYSIS PATIENTS. CBC (HEMOGRAM ONLY)2018-01-31 05:18:00 Test Item Value Reference Range Comments WHITE BLOOD CELL COUNT (BEAKER) (test phuz=801) 5.5 K/ L 3.5-10.5 RED BLOOD CELL COUNT (BEAKER) (test xoyc=448) 4.26 M/ L 4.63-6.08 HEMOGLOBIN (BEAKER) (test zvsq=448) 12.3 GM/DL 13.7-17.5 HEMATOCRIT (BEAKER) (test khwi=265) 37.8 % 40.1-51.0 MEAN CORPUSCULAR VOLUME (BEAKER) (test wjyc=855) 88.7 fL 79.0-92.2 MEAN CORPUSCULAR HEMOGLOBIN (BEAKER) (test 28.9 pg 25.7-32.2 bwfj=817) MEAN CORPUSCULAR HEMOGLOBIN CONC (BEAKER) (test 32.5 GM/DL 32.3-36.5 jwjn=064) RED CELL DISTRIBUTION WIDTH (BEAKER) (test 14.3 % 11.6-14.4 awuj=614) PLATELET COUNT (BEAKER) (test vdfw=129) 129 K/CU MM 150-450 MEAN PLATELET VOLUME (BEAKER) (test xmjt=018) 10.7 fL 9.4-12.4 NUCLEATED RED BLOOD CELLS (BEAKER) (test 0 /100 WBC 0-0 gerc=601) POCT-GLUCOSE [id number] 08:10:00 Test Item Value Reference Range Comments POC-GLUCOSE METER (BEAKER) 109 mg/dL 70-110 TESTED AT [facility] [address] [facility] (test jiec=6144) [facility] [address] [id number] 05:39:00 Test Item Value Reference Range Comments PHOSPHORUS (BEAKER) (test ivog=458) 3.2 mg/dL 2.3-4.7 [id number] 05:39:00 Test Item Value Reference Range Comments MAGNESIUM (BEAKER) (test eknq=783) 2.1 mg/dL 1.6-2.6 BASIC METABOLIC [id number] 05:39:00 Test Item Value Reference Range Comments SODIUM (BEAKER) (test 136 meq/L 136-145 zyhv=261) POTASSIUM (BEAKER) (test 4.8 meq/L 3.5-5.1 xwwf=763) CHLORIDE (BEAKER) (test 108 meq/L 98-107 xgxe=250) CO2 (BEAKER) (test 23 meq/L 22-29 hpwz=204) BLOOD UREA NITROGEN 49 mg/dL 7-21 (BEAKER) (test hwhm=896) CREATININE (BEAKER) (test 1.08 mg/dL 0.57-1.25 txdk=898) GLUCOSE RANDOM (BEAKER) 102 mg/dL 70-105 (test aldm=133) CALCIUM (BEAKER) (test 8.5 mg/dL 8.4-10.2 ttdy=626) EGFR (BEAKER) (test 66 mL/min/1.73 sq m ESTIMATED GFR IS NOT yzcl=8305) ACCURATE CREATININE CLEARANCE IN PREDICTING GLOMERULAR FILTRATION RATE. ESTIMATED GFR IS NOT APPLICABLE FOR DIALYSIS PATIENTS. CBC (HEMOGRAM ONLY)2018-01-30 05:37:00 Test Item Value Reference Range Comments WHITE BLOOD CELL COUNT (BEAKER) (test lupp=410) 5.4 K/ L 3.5-10.5 RED BLOOD CELL COUNT (BEAKER) (test vtcg=539) 4.28 M/ L 4.63-6.08 HEMOGLOBIN (BEAKER) (test ytts=350) 12.3 GM/DL 13.7-17.5 HEMATOCRIT (BEAKER) (test zeeu=263) 38.5 % 40.1-51.0 MEAN CORPUSCULAR VOLUME (BEAKER) (test zere=612) 90.0 fL 79.0-92.2 MEAN CORPUSCULAR HEMOGLOBIN (BEAKER) (test 28.7 pg 25.7-32.2 unhh=137) MEAN CORPUSCULAR HEMOGLOBIN CONC (BEAKER) (test 31.9 GM/DL 32.3-36.5 uniw=273) RED CELL DISTRIBUTION WIDTH (BEAKER) (test 14.4 % 11.6-14.4 xwom=370) PLATELET COUNT (BEAKER) (test qvcg=553) 119 K/CU MM 150-450 MEAN PLATELET VOLUME (BEAKER) (test ywlo=855) 10.4 fL 9.4-12.4 NUCLEATED RED BLOOD CELLS (BEAKER) (test 0 /100 WBC 0-0 fgls=030) POCT-GLUCOSE [id number] 21:31:00 Test Item Value Reference Range Comments POC-GLUCOSE METER (BEAKER) 136 mg/dL 70-110 TESTED AT [facility] [address] [facility] (test zqhp=8369) [facility] [address] [id number] 03:49:00 Test Item Value Reference Range Comments PHOSPHORUS (BEAKER) (test lzrj=820) 4.2 mg/dL 2.3-4.7 [id number] 03:49:00 Test Item Value Reference Range Comments MAGNESIUM (BEAKER) (test okpw=851) 2.0 mg/dL 1.6-2.6 BASIC METABOLIC [id number] 03:49:00 Test Item Value Reference Range Comments SODIUM (BEAKER) (test 138 meq/L 136-145 bzrq=696) POTASSIUM (BEAKER) (test 4.3 meq/L 3.5-5.1 gcxk=821) CHLORIDE (BEAKER) (test 110 meq/L 98-107 tvaa=448) CO2 (BEAKER) (test 19 meq/L 22-29 wpnv=088) BLOOD UREA NITROGEN 47 mg/dL 7-21 (BEAKER) (test pbqe=402) CREATININE (BEAKER) (test 1.08 mg/dL 0.57-1.25 ghge=010) GLUCOSE RANDOM (BEAKER) 138 mg/dL 70-105 (test rlrk=479) CALCIUM (BEAKER) (test 8.6 mg/dL 8.4-10.2 tmtl=150) EGFR (BEAKER) (test 66 mL/min/1.73 sq m ESTIMATED GFR IS NOT avgf=6809) ACCURATE CREATININE CLEARANCE IN PREDICTING GLOMERULAR FILTRATION RATE. ESTIMATED GFR IS NOT APPLICABLE FOR DIALYSIS PATIENTS. CBC (HEMOGRAM ONLY)2018-01-29 03:38:00 Test Item Value Reference Range Comments WHITE BLOOD CELL COUNT (BEAKER) (test dgfq=552) 5.6 K/ L 3.5-10.5 RED BLOOD CELL COUNT (BEAKER) (test ijnu=181) 4.48 M/ L 4.63-6.08 HEMOGLOBIN (BEAKER) (test alhq=169) 12.7 GM/DL 13.7-17.5 HEMATOCRIT (BEAKER) (test fccn=220) 39.8 % 40.1-51.0 MEAN CORPUSCULAR VOLUME (BEAKER) (test lsls=343) 88.8 fL 79.0-92.2 MEAN CORPUSCULAR HEMOGLOBIN (BEAKER) (test 28.3 pg 25.7-32.2 aquf=659) MEAN CORPUSCULAR HEMOGLOBIN CONC (BEAKER) (test 31.9 GM/DL 32.3-36.5 jpsz=087) RED CELL DISTRIBUTION WIDTH (BEAKER) (test 14.3 % 11.6-14.4 gzvx=300) PLATELET COUNT (BEAKER) (test dycw=997) 143 K/CU MM 150-450 MEAN PLATELET VOLUME (BEAKER) (test wwgw=102) 10.3 fL 9.4-12.4 NUCLEATED RED BLOOD CELLS (BEAKER) (test 0 /100 WBC 0-0 yaee=928) [id number] 15:06:00 Test Item Value Reference Range Comments PARTIAL THROMBOPLASTIN TIME (BEAKER) (test 31.2 seconds 22.5-36.0 xeng=686) BASIC METABOLIC [id number] 15:05:00 Test Item Value Reference Range Comments SODIUM (BEAKER) (test 139 meq/L 136-145 kjzl=519) POTASSIUM (BEAKER) (test 4.5 meq/L 3.5-5.1 zfmn=446) CHLORIDE (BEAKER) (test 113 meq/L 98-107 sotr=632) CO2 (BEAKER) (test 19 meq/L 22-29 enju=339) BLOOD UREA NITROGEN 48 mg/dL 7-21 (BEAKER) (test pjbv=581) CREATININE (BEAKER) (test 1.20 mg/dL 0.57-1.25 kzab=225) GLUCOSE RANDOM (BEAKER) 133 mg/dL 70-105 (test rgfe=484) CALCIUM (BEAKER) (test 9.0 mg/dL 8.4-10.2 xlgl=630) EGFR (BEAKER) (test 58 mL/min/1.73 sq m ESTIMATED GFR IS NOT gepv=3816) ACCURATE CREATININE CLEARANCE IN PREDICTING GLOMERULAR FILTRATION RATE. ESTIMATED GFR IS NOT APPLICABLE FOR DIALYSIS PATIENTS. CBC (HEMOGRAM ONLY)2018-01-28 14:49:00 Test Item Value Reference Range Comments WHITE BLOOD CELL COUNT (BEAKER) (test jbil=713) 8.0 K/ L 3.5-10.5 RED BLOOD CELL COUNT (BEAKER) (test nmmp=060) 4.73 M/ L 4.63-6.08 HEMOGLOBIN (BEAKER) (test uvwu=020) 13.6 GM/DL 13.7-17.5 HEMATOCRIT (BEAKER) (test fbnv=547) 41.3 % 40.1-51.0 MEAN CORPUSCULAR VOLUME (BEAKER) (test pttd=396) 87.3 fL 79.0-92.2 MEAN CORPUSCULAR HEMOGLOBIN (BEAKER) (test 28.8 pg 25.7-32.2 gugi=073) MEAN CORPUSCULAR HEMOGLOBIN CONC (BEAKER) (test 32.9 GM/DL 32.3-36.5 wfhz=407) RED CELL DISTRIBUTION WIDTH (BEAKER) (test 14.3 % 11.6-14.4 zsku=383) PLATELET COUNT (BEAKER) (test gpmq=443) 146 K/CU MM 150-450 MEAN PLATELET VOLUME (BEAKER) (test maho=273) 10.1 fL 9.4-12.4 NUCLEATED RED BLOOD CELLS (BEAKER) (test 0 /100 WBC 0-0 mnui=207) [id number] 12:59:00 Test Item Value Reference Range Comments ACTIVATED CLOTTING TIME 120 sec TESTED AT [facility] [address] (BEAKER) (test nvgt=154) [facility] [address] [id number] 12:59:00 Test Item Value Reference Range Comments ACTIVATED CLOTTING TIME 230 sec TESTED AT [facility] [address] (BEAKER) (test oiiw=054) [facility] [address] [id number] 12:59:00 Test Item Value Reference Range Comments ACTIVATED CLOTTING TIME 257 sec TESTED AT [facility] [address] (BEAKER) (test ygkm=079) [place] [address] [id number] 12:59:00 Test Item Value Reference Range Comments ACTIVATED CLOTTING TIME 246 sec TESTED AT [facility] [address] (BEAKER) (test qhoc=871) [place] [address] [id number] 12:59:00 Test Item Value Reference Range Comments ACTIVATED CLOTTING TIME 263 sec TESTED AT [facility] [address] (BEAKER) (test xtyv=861) [place] [address] [id number] 12:59:00 Test Item Value Reference Range Comments ACTIVATED CLOTTING TIME 263 sec TESTED AT [facility] [address] (BEAKER) (test icwv=797) [place] [address] BLOOD GAS, [id number] 11:14:00 Test Item Value Reference Range Comments PH ARTERIAL (BEAKER) (test kuqy=151) 7.41 7.35-7.45 PCO2 ARTERIAL (BEAKER) (test uzit=175) 35 mmHg 35-45 PO2 ARTERIAL (BEAKER) (test pzpd=258) 170 mmHg 80-90 O2 SATURATION ARTERIAL (BEAKER) (test nujj=393) 99.2 % 96.0-97.0 HCO3 ARTERIAL (BEAKER) (test fvce=821) 22 mmol/L 21-29 BASE EXCESS ARTERIAL (BEAKER) (test pebp=067) -2.0 mmol/L -2.0-3.0 PATIENT TEMPERATURE (BEAKER) (test anva=0857) 36.0 C FIO2 (BEAKER) (test nyko=2796) 55.0 % GLUCOSE-STAT [id number] 11:13:00 Test Item Value Reference Range Comments GLUCOSE RANDOM (BEAKER) (test aakm=321) 104 mg/dL 70-110 SODIUM NA-STAT [id number] 11:13:00 Test Item Value Reference Range Comments SODIUM (BEAKER) (test emgx=735) 137 meq/L 135-148 POTASSIUM-STAT [id number] 11:13:00 Test Item Value Reference Range Comments POTASSIUM (BEAKER) (test reda=467) 4.2 meq/L 3.6-5.5 HGB/HCT (H&H) - STAT [id number] 11:13:00 Test Item Value Reference Range Comments HEMOGLOBIN (BEAKER) (test ncoz=393) 14.1 g/dL 13.0-16.8 HEMATOCRIT (BEAKER) (test skqx=340) 41.0 % 40.0-50.0 CALCIUM, [id number] 11:13:00 Test Item Value Reference Range Comments CALCIUM IONIZED (BEAKER) (test aryl=364) 1.12 mmol/L 1.12-1.27 PH, BLOOD (BEAKER) (test prvo=5103) 7.40 GLUCOSE-STAT [id number] 10:14:00 Test Item Value Reference Range Comments GLUCOSE RANDOM (BEAKER) (test zbxw=309) 105 mg/dL 70-110 SODIUM NA-STAT [id number] 10:14:00 Test Item Value Reference Range Comments SODIUM (BEAKER) (test pgfo=043) 135 meq/L 135-148 POTASSIUM-STAT [id number] 10:14:00 Test Item Value Reference Range Comments POTASSIUM (BEAKER) (test twbf=893) 4.4 meq/L 3.6-5.5 HGB/HCT (H&H) - STAT [id number] 10:14:00 Test Item Value Reference Range Comments HEMOGLOBIN (BEAKER) (test qira=673) 14.5 g/dL 13.0-16.8 HEMATOCRIT (BEAKER) (test yltg=004) 43.0 % 40.0-50.0 CALCIUM, [id number] 10:14:00 Test Item Value Reference Range Comments CALCIUM IONIZED (BEAKER) (test zjsi=451) 1.18 mmol/L 1.12-1.27 PH, BLOOD (BEAKER) (test wtvj=1394) 7.34 BLOOD GAS, [id number] 10:14:00 Test Item Value Reference Range Comments PH ARTERIAL (BEAKER) (test zcek=302) 7.36 7.35-7.45 PCO2 ARTERIAL (BEAKER) (test ovkj=639) 36 mmHg 35-45 PO2 ARTERIAL (BEAKER) (test dfdb=723) 293 mmHg 80-90 O2 SATURATION ARTERIAL (BEAKER) (test pqgu=754) 99.7 % 96.0-97.0 HCO3 ARTERIAL (BEAKER) (test dvro=533) 20 mmol/L 21-29 BASE EXCESS ARTERIAL (BEAKER) (test esum=514) -5.3 mmol/L -2.0-3.0 PATIENT TEMPERATURE (BEAKER) (test skhl=0781) 35.6 C FIO2 (BEAKER) (test txfu=0647) 70.0 % SODIUM NA-STAT [id number] 08:32:00 Test Item Value Reference Range Comments SODIUM (BEAKER) (test tuch=283) 134 meq/L 135-148 CALCIUM, [id number] 08:31:00 Test Item Value Reference Range Comments CALCIUM IONIZED (BEAKER) (test gnwf=462) 1.07 mmol/L 1.12-1.27 PH, BLOOD (BEAKER) (test uytf=2733) 7.33 BLOOD GAS, [id number] 08:31:00 Test Item Value Reference Range Comments PH ARTERIAL (BEAKER) (test gyhz=872) 7.36 7.35-7.45 PCO2 ARTERIAL (BEAKER) (test jese=399) 36 mmHg 35-45 PO2 ARTERIAL (BEAKER) (test fueh=775) 187 mmHg 80-90 O2 SATURATION ARTERIAL (BEAKER) (test graj=028) 99.3 % 96.0-97.0 HCO3 ARTERIAL (BEAKER) (test gsyh=340) 21 mmol/L 21-29 BASE EXCESS ARTERIAL (BEAKER) (test mhil=993) -4.9 mmol/L -2.0-3.0 PATIENT TEMPERATURE (BEAKER) (test xpyt=8075) 35.0 C FIO2 (BEAKER) (test agzl=5311) 60.0 % GLUCOSE-STAT [id number] 08:30:00 Test Item Value Reference Range Comments GLUCOSE RANDOM (BEAKER) (test jwuc=288) 97 mg/dL 70-110 POTASSIUM-STAT [id number] 08:30:00 Test Item Value Reference Range Comments POTASSIUM (BEAKER) (test hoza=165) 4.6 meq/L 3.6-5.5 HGB/HCT (H&H) - STAT [id number] 08:30:00 Test Item Value Reference Range Comments HEMOGLOBIN (BEAKER) (test uwgy=546) 15.0 g/dL 13.0-16.8 HEMATOCRIT (BEAKER) (test ehvs=763) 44.0 % 40.0-50.0 [id number] 07:27:00 Test Item Value Reference Range Comments BLOOD UREA NITROGEN (BEAKER) (test xlkt=964) 49 mg/dL 7-21 PROTHROMBIN [id number] 06:48:00 Test Item Value Reference Range Comments PROTIME (BEAKER) (test ejsn=259) 14.3 seconds 11.7-14.7 INR (BEAKER) (test zqzv=302) 1.1 <=5.9 RECOMMENDED COUMADIN/WARFARIN INR THERAPY RANGESSTANDARD DOSE: 2.0 - 3.0 Includes: PROPHYLAXIS forvenous thrombosis, systemic embolization; TREATMENT for venous thrombosis and/or pulmonary embolus.HIGH RISK: Target INR is 2.5-3.5 for patients with mechanical heart valves.CBC W/PLT COUNT & AUTO [id number] 06:42:00 Test Item Value Reference Range Comments WHITE BLOOD CELL COUNT (BEAKER) (test wepv=311) 4.8 K/ L 3.5-10.5 RED BLOOD CELL COUNT (BEAKER) (test eqfr=630) 5.24 M/ L 4.63-6.08 HEMOGLOBIN (BEAKER) (test gbyo=104) 15.1 GM/DL 13.7-17.5 HEMATOCRIT (BEAKER) (test zkiq=243) 45.0 % 40.1-51.0 MEAN CORPUSCULAR VOLUME (BEAKER) (test txgc=903) 85.9 fL 79.0-92.2 MEAN CORPUSCULAR HEMOGLOBIN (BEAKER) (test 28.8 pg 25.7-32.2 cgrk=229) MEAN CORPUSCULAR HEMOGLOBIN CONC (BEAKER) (test 33.6 GM/DL 32.3-36.5 bvri=049) RED CELL DISTRIBUTION WIDTH (BEAKER) (test 14.2 % 11.6-14.4 ltox=522) PLATELET COUNT (BEAKER) (test qmwq=029) 154 K/CU MM 150-450 MEAN PLATELET VOLUME (BEAKER) (test ulrw=418) 10.3 fL 9.4-12.4 NUCLEATED RED BLOOD CELLS (BEAKER) (test 0 /100 WBC 0-0 mwhj=584) NEUTROPHILS RELATIVE PERCENT (BEAKER) (test 63 % tuad=437) LYMPHOCYTES RELATIVE PERCENT (BEAKER) (test 23 % fjbl=879) MONOCYTES RELATIVE PERCENT (BEAKER) (test 7 % wlpx=023) EOSINOPHILS RELATIVE PERCENT (BEAKER) (test 6 % pokx=594) BASOPHILS RELATIVE PERCENT (BEAKER) (test 1 % pwsl=488) NEUTROPHILS ABSOLUTE COUNT (BEAKER) (test 3.00 K/ L 1.78-5.38 keqq=266) LYMPHOCYTES ABSOLUTE COUNT (BEAKER) (test 1.11 K/ L 1.32-3.57 dfzt=964) MONOCYTES ABSOLUTE COUNT (BEAKER) (test 0.33 K/ L 0.30-0.82 nyya=045) EOSINOPHILS ABSOLUTE COUNT (BEAKER) (test 0.29 K/ L 0.04-0.54 ronl=600) BASOPHILS ABSOLUTE COUNT (BEAKER) (test 0.04 K/ L 0.01-0.08 mfdv=311) IMMATURE GRANULOCYTES-RELATIVE PERCENT (BEAKER) 0 % 0-1 (test iopq=7293) [id number] 11:22:00 Test Item Value Reference Range Comments SODIUM (BEAKER) (test dimk=052) 139 meq/L 136-145 POTASSIUM (BEAKER) (test 4.9 meq/L 3.5-5.1 Specimen slightly hemolyzed yhyv=966) CHLORIDE (BEAKER) (test 108 meq/L 98-107 laki=138) CO2 (BEAKER) (test adkm=760) 22 meq/L 22-29 [id number] 11:22:00 Test Item Value Reference Range Comments GLUCOSE RANDOM (BEAKER) (test hjch=797) 102 mg/dL 70-105 BUN AND [id number] 11:22:00 Test Item Value Reference Range Comments BLOOD UREA NITROGEN 55 mg/dL 7-21 (BEAKER) (test simj=791) CREATININE (BEAKER) (test 1.29 mg/dL 0.57-1.25 Specimen slightly xbpj=068) hemolyzed EGFR (BEAKER) (test 54 mL/min/1.73 sq m ESTIMATED GFR IS NOT utgz=1401) ACCURATE CREATININE CLEARANCE IN PREDICTING GLOMERULAR FILTRATION RATE. ESTIMATED GFR IS NOT APPLICABLE FOR DIALYSIS PATIENTS. [id number] 08:56:00 Test Item Value Reference Range Comments HEMOGLOBIN (BEAKER) (test xwed=986) 15.9 GM/DL 13.7-17.5 BASIC METABOLIC [id number] 01:34:00 Test Item Value Reference Range Comments SODIUM (BEAKER) (test 141 meq/L 136-145 yran=033) POTASSIUM (BEAKER) (test 4.4 meq/L 3.5-5.1 gcar=049) CHLORIDE (BEAKER) (test 109 meq/L 98-107 qzsy=141) CO2 (BEAKER) (test 24 meq/L 22-29 ogyi=263) BLOOD UREA NITROGEN 51 mg/dL 7-21 (BEAKER) (test xxcd=635) CREATININE (BEAKER) (test 1.12 mg/dL 0.57-1.25 fzrr=997) GLUCOSE RANDOM (BEAKER) 93 mg/dL 70-105 (test vnsb=613) CALCIUM (BEAKER) (test 8.5 mg/dL 8.4-10.2 dpbi=810) EGFR (BEAKER) (test 63 mL/min/1.73 sq m ESTIMATED GFR IS NOT eihp=0632) ACCURATE CREATININE CLEARANCE IN PREDICTING GLOMERULAR FILTRATION RATE. ESTIMATED GFR IS NOT APPLICABLE FOR DIALYSIS PATIENTS. [id number] 01:32:00 Test Item Value Reference Range Comments PARTIAL THROMBOPLASTIN TIME (BEAKER) (test 69.3 seconds 22.5-36.0 hxtt=698) CBC W/PLT COUNT & AUTO [id number] 01:23:00 Test Item Value Reference Range Comments WHITE BLOOD CELL COUNT (BEAKER) (test rzys=660) 4.7 K/ L 3.5-10.5 RED BLOOD CELL COUNT (BEAKER) (test vjmb=190) 5.17 M/ L 4.63-6.08 HEMOGLOBIN (BEAKER) (test mgji=408) 13.9 GM/DL 13.7-17.5 HEMATOCRIT (BEAKER) (test khjn=076) 43.7 % 40.1-51.0 MEAN CORPUSCULAR VOLUME (BEAKER) (test deeg=069) 84.5 fL 79.0-92.2 MEAN CORPUSCULAR HEMOGLOBIN (BEAKER) (test 26.9 pg 25.7-32.2 qprg=250) MEAN CORPUSCULAR HEMOGLOBIN CONC (BEAKER) (test 31.8 GM/DL 32.3-36.5 pfud=540) RED CELL DISTRIBUTION WIDTH (BEAKER) (test 15.7 % 11.6-14.4 qjvq=766) PLATELET COUNT (BEAKER) (test npeq=288) 130 K/CU MM 150-450 MEAN PLATELET VOLUME (BEAKER) (test etvh=085) 10.9 fL 9.4-12.4 NUCLEATED RED BLOOD CELLS (BEAKER) (test 0 /100 WBC 0-0 eldf=425) NEUTROPHILS RELATIVE PERCENT (BEAKER) (test 59 % vrdf=094) LYMPHOCYTES RELATIVE PERCENT (BEAKER) (test 27 % ymho=518) MONOCYTES RELATIVE PERCENT (BEAKER) (test 8 % cvnd=246) EOSINOPHILS RELATIVE PERCENT (BEAKER) (test 5 % tsir=350) BASOPHILS RELATIVE PERCENT (BEAKER) (test 0 % xkfy=570) NEUTROPHILS ABSOLUTE COUNT (BEAKER) (test 2.73 K/ L 1.78-5.38 yaih=735) LYMPHOCYTES ABSOLUTE COUNT (BEAKER) (test 1.26 K/ L 1.32-3.57 vncb=167) MONOCYTES ABSOLUTE COUNT (BEAKER) (test 0.37 K/ L 0.30-0.82 shnj=617) EOSINOPHILS ABSOLUTE COUNT (BEAKER) (test 0.25 K/ L 0.04-0.54 ktqc=696) BASOPHILS ABSOLUTE COUNT (BEAKER) (test 0.02 K/ L 0.01-0.08 ctpw=870) IMMATURE GRANULOCYTES-RELATIVE PERCENT (BEAKER) 0 % 0-1 (test lgij=1494) [id number] 04:46:00 Test Item Value Reference Range Comments PROTIME (BEAKER) (test gxvm=054) 14.2 seconds 11.7-14.7 INR (BEAKER) (test smab=837) 1.1 <=5.9 PARTIAL THROMBOPLASTIN TIME (BEAKER) (test 27.9 seconds 22.5-36.0 izoj=275) RECOMMENDED COUMADIN/WARFARIN INR THERAPY RANGESSTANDARD DOSE: 2.0 - 3.0 Includes: PROPHYLAXIS forvenous thrombosis, systemic embolization; TREATMENT for venous thrombosis and/or pulmonary embolus.HIGH RISK: Target INR is 2.5-3.5 for patients with mechanical heart valves.BASIC METABOLIC [id number] 02:31: 00 Test Item Value Reference Range Comments SODIUM (BEAKER) (test 140 meq/L 136-145 kwpv=492) POTASSIUM (BEAKER) (test 4.7 meq/L 3.5-5.1 jhrb=960) CHLORIDE (BEAKER) (test 106 meq/L 98-107 opxz=836) CO2 (BEAKER) (test 27 meq/L 22-29 nejn=980) BLOOD UREA NITROGEN 52 mg/dL 7-21 (BEAKER) (test wkye=409) CREATININE (BEAKER) (test 1.30 mg/dL 0.57-1.25 sybi=843) GLUCOSE RANDOM (BEAKER) 91 mg/dL 70-105 (test xboc=428) CALCIUM (BEAKER) (test 9.0 mg/dL 8.4-10.2 ctcb=450) EGFR (BEAKER) (test 53 mL/min/1.73 sq m ESTIMATED GFR IS NOT wtrc=2278) ACCURATE CREATININE CLEARANCE IN PREDICTING GLOMERULAR FILTRATION RATE. ESTIMATED GFR IS NOT APPLICABLE FOR DIALYSIS PATIENTS. CBC W/PLT COUNT & AUTO [id number] 02:17:00 Test Item Value Reference Range Comments WHITE BLOOD CELL COUNT (BEAKER) (test btwy=594) 5.4 K/ L 3.5-10.5 RED BLOOD CELL COUNT (BEAKER) (test ally=152) 5.32 M/ L 4.63-6.08 HEMOGLOBIN (BEAKER) (test doep=151) 14.6 GM/DL 13.7-17.5 HEMATOCRIT (BEAKER) (test fbdu=695) 45.6 % 40.1-51.0 MEAN CORPUSCULAR VOLUME (BEAKER) (test ojny=007) 85.7 fL 79.0-92.2 MEAN CORPUSCULAR HEMOGLOBIN (BEAKER) (test 27.4 pg 25.7-32.2 gaqb=426) MEAN CORPUSCULAR HEMOGLOBIN CONC (BEAKER) (test 32.0 GM/DL 32.3-36.5 vjfm=171) RED CELL DISTRIBUTION WIDTH (BEAKER) (test 15.9 % 11.6-14.4 zago=167) PLATELET COUNT (BEAKER) (test nvll=212) 140 K/CU MM 150-450 MEAN PLATELET VOLUME (BEAKER) (test jaqz=209) 10.6 fL 9.4-12.4 NUCLEATED RED BLOOD CELLS (BEAKER) (test 0 /100 WBC 0-0 sajh=963) NEUTROPHILS RELATIVE PERCENT (BEAKER) (test 55 % wokb=775) LYMPHOCYTES RELATIVE PERCENT (BEAKER) (test 28 % ptcm=824) MONOCYTES RELATIVE PERCENT (BEAKER) (test 9 % vpxj=777) EOSINOPHILS RELATIVE PERCENT (BEAKER) (test 8 % ccap=470) BASOPHILS RELATIVE PERCENT (BEAKER) (test 1 % nife=343) NEUTROPHILS ABSOLUTE COUNT (BEAKER) (test 2.97 K/ L 1.78-5.38 zega=583) LYMPHOCYTES ABSOLUTE COUNT (BEAKER) (test 1.49 K/ L 1.32-3.57 icrq=898) MONOCYTES ABSOLUTE COUNT (BEAKER) (test 0.51 K/ L 0.30-0.82 yuhf=156) EOSINOPHILS ABSOLUTE COUNT (BEAKER) (test 0.41 K/ L 0.04-0.54 mavu=812) BASOPHILS ABSOLUTE COUNT (BEAKER) (test 0.03 K/ L 0.01-0.08 evle=123) IMMATURE GRANULOCYTES-RELATIVE PERCENT (BEAKER) 0 % 0-1 (test jfce=1202) CBC W/PLT COUNT & AUTO [id number] 07:53:00 Test Item Value Reference Range Comments WHITE BLOOD CELL COUNT (BEAKER) (test vtwv=183) 5.6 K/ L 4.0-10.0 RED BLOOD CELL COUNT (BEAKER) (test pxbg=589) 4.50 M/ L 4.20-5.80 HEMOGLOBIN (BEAKER) (test uexw=692) 13.3 GM/DL 13.0-16.8 HEMATOCRIT (BEAKER) (test krvz=980) 40.0 % 40.0-50.0 MEAN CORPUSCULAR VOLUME (BEAKER) (test veud=587) 88.8 fL 82.0-98.0 MEAN CORPUSCULAR HEMOGLOBIN (BEAKER) (test 29.6 pg 27.0-33.0 vfbl=185) MEAN CORPUSCULAR HEMOGLOBIN CONC (BEAKER) (test 33.3 GM/DL 32.0-36.0 mvic=343) RED CELL DISTRIBUTION WIDTH (BEAKER) (test 15.7 % 10.3-14.2 ntmk=385) PLATELET COUNT (BEAKER) (test qewu=438) 136 K/CU MM 150-430 MEAN PLATELET VOLUME (BEAKER) (test zlpj=801) 8.2 fL 6.5-10.5 NUCLEATED RED BLOOD CELLS (BEAKER) (test 0 /100 WBC 0-0 edtj=745) NEUTROPHILS RELATIVE PERCENT (BEAKER) (test 58 % dyqz=267) LYMPHOCYTES RELATIVE PERCENT (BEAKER) (test 21 % bchn=542) MONOCYTES RELATIVE PERCENT (BEAKER) (test 7 % purg=595) EOSINOPHILS RELATIVE PERCENT (BEAKER) (test 14 % hwkd=573) BASOPHILS RELATIVE PERCENT (BEAKER) (test 1 % nrbl=710) NEUTROPHILS ABSOLUTE COUNT (BEAKER) (test 3.28 K/ L 1.80-8.00 ycfr=023) LYMPHOCYTES ABSOLUTE COUNT (BEAKER) (test 1.18 K/ L 1.48-4.50 iohe=079) MONOCYTES ABSOLUTE COUNT (BEAKER) (test 0.37 K/ L 0.00-1.30 qybo=733) EOSINOPHILS ABSOLUTE COUNT (BEAKER) (test 0.78 K/ L 0.00-0.50 znga=536) BASOPHILS ABSOLUTE COUNT (BEAKER) (test 0.03 K/ L 0.00-0.20 uwdl=281) 0.00B-TYPE NATRIURETIC FACTOR (BNP)2017-01-31 07:27:00 Test Item Value Reference Range Comments B-TYPE NATRIURETIC PEPTIDE (BEAKER) (test efui=250) 46 pg/mL 0-100 [id number] 07:22:00 Test Item Value Reference Range Comments PHOSPHORUS (BEAKER) (test nelq=227) 2.8 mg/dL 2.3-4.7 [id number] 07:22:00 Test Item Value Reference Range Comments MAGNESIUM (BEAKER) (test iqcl=406) 1.9 mg/dL 1.6-2.6 BASIC METABOLIC [id number] 07:22:00 Test Item Value Reference Range Comments SODIUM (BEAKER) (test 137 meq/L 136-145 rbmu=300) POTASSIUM (BEAKER) (test 4.4 meq/L 3.5-5.1 avsy=956) CHLORIDE (BEAKER) (test 111 meq/L 98-107 feys=556) CO2 (BEAKER) (test 20 meq/L 22-29 wenp=188) BLOOD UREA NITROGEN 60 mg/dL 7-21 (BEAKER) (test bwnz=208) CREATININE (BEAKER) (test 1.15 mg/dL 0.57-1.25 qdud=066) GLUCOSE RANDOM (BEAKER) 83 mg/dL 70-105 (test pbkw=039) CALCIUM (BEAKER) (test 8.1 mg/dL 8.4-10.2 nsny=932) EGFR (BEAKER) (test 62 mL/min/1.73 sq m ESTIMATED GFR IS NOT opcc=0329) ACCURATE CREATININE CLEARANCE IN PREDICTING GLOMERULAR FILTRATION RATE. ESTIMATED GFR IS NOT APPLICABLE FOR DIALYSIS PATIENTS. CALCIUM, [id number] 07:05:00 Test Item Value Reference Range Comments CALCIUM IONIZED (BEAKER) (test tbae=326) 0.90 mmol/L 1.12-1.27 PH, BLOOD (BEAKER) (test fdht=8915) 7.42 CBC W/PLT COUNT & AUTO [id number] 08:13:00 Test Item Value Reference Range Comments WHITE BLOOD CELL COUNT (BEAKER) (test pfns=465) 6.2 K/ L 4.0-10.0 RED BLOOD CELL COUNT (BEAKER) (test hojt=311) 4.72 M/ L 4.20-5.80 HEMOGLOBIN (BEAKER) (test jodb=734) 14.5 GM/DL 13.0-16.8 HEMATOCRIT (BEAKER) (test rfbf=217) 42.1 % 40.0-50.0 MEAN CORPUSCULAR VOLUME (BEAKER) (test qyst=652) 89.1 fL 82.0-98.0 MEAN CORPUSCULAR HEMOGLOBIN (BEAKER) (test 30.7 pg 27.0-33.0 wiie=643) MEAN CORPUSCULAR HEMOGLOBIN CONC (BEAKER) (test 34.4 GM/DL 32.0-36.0 nojj=050) RED CELL DISTRIBUTION WIDTH (BEAKER) (test 15.7 % 10.3-14.2 rtne=093) PLATELET COUNT (BEAKER) (test ovla=921) 134 K/CU MM 150-430 MEAN PLATELET VOLUME (BEAKER) (test ywer=831) 8.2 fL 6.5-10.5 NUCLEATED RED BLOOD CELLS (BEAKER) (test 0 /100 WBC 0-0 nqbv=170) NEUTROPHILS RELATIVE PERCENT (BEAKER) (test 50 % uuah=470) LYMPHOCYTES RELATIVE PERCENT (BEAKER) (test 28 % biwm=006) MONOCYTES RELATIVE PERCENT (BEAKER) (test 6 % qgxa=132) EOSINOPHILS RELATIVE PERCENT (BEAKER) (test 15 % yunt=636) BASOPHILS RELATIVE PERCENT (BEAKER) (test 0 % tloi=177) NEUTROPHILS ABSOLUTE COUNT (BEAKER) (test 3.09 K/ L 1.80-8.00 uzpi=557) LYMPHOCYTES ABSOLUTE COUNT (BEAKER) (test 1.74 K/ L 1.48-4.50 ihut=588) MONOCYTES ABSOLUTE COUNT (BEAKER) (test 0.39 K/ L 0.00-1.30 gntk=798) EOSINOPHILS ABSOLUTE COUNT (BEAKER) (test 0.94 K/ L 0.00-0.50 pjvv=602) BASOPHILS ABSOLUTE COUNT (BEAKER) (test 0.02 K/ L 0.00-0.20 malo=985) CBC (HEMOGRAM ONLY)2017-01-30 08:07:00 Test Item Value Reference Range Comments WHITE BLOOD CELL COUNT (BEAKER) (test dsix=444) 6.2 K/ L 4.0-10.0 RED BLOOD CELL COUNT (BEAKER) (test ehok=465) 4.72 M/ L 4.20-5.80 HEMOGLOBIN (BEAKER) (test brxm=599) 14.5 GM/DL 13.0-16.8 HEMATOCRIT (BEAKER) (test oboi=634) 42.1 % 40.0-50.0 MEAN CORPUSCULAR VOLUME (BEAKER) (test seef=083) 89.1 fL 82.0-98.0 MEAN CORPUSCULAR HEMOGLOBIN (BEAKER) (test 30.7 pg 27.0-33.0 jcie=697) MEAN CORPUSCULAR HEMOGLOBIN CONC (BEAKER) (test 34.4 GM/DL 32.0-36.0 pewz=468) RED CELL DISTRIBUTION WIDTH (BEAKER) (test 15.7 % 10.3-14.2 fmab=243) PLATELET COUNT (BEAKER) (test yqso=201) 134 K/CU MM 150-430 MEAN PLATELET VOLUME (BEAKER) (test pvmm=209) 8.2 fL 6.5-10.5 NUCLEATED RED BLOOD CELLS (BEAKER) (test 0 /100 WBC 0-0 waxe=076) 0.00BASIC METABOLIC [id number] 06:38:00 Test Item Value Reference Range Comments SODIUM (BEAKER) (test 134 meq/L 136-145 uamy=376) POTASSIUM (BEAKER) (test 4.8 meq/L 3.5-5.1 cbet=176) CHLORIDE (BEAKER) (test 108 meq/L 98-107 ahtr=403) CO2 (BEAKER) (test 19 meq/L 22-29 zepy=295) BLOOD UREA NITROGEN 70 mg/dL 7-21 (BEAKER) (test fvek=718) CREATININE (BEAKER) (test 1.52 mg/dL 0.57-1.25 sehm=779) GLUCOSE RANDOM (BEAKER) 87 mg/dL 70-105 (test icsb=388) CALCIUM (BEAKER) (test 8.3 mg/dL 8.4-10.2 vwnr=326) EGFR (BEAKER) (test 45 mL/min/1.73 sq m ESTIMATED GFR IS NOT gvjv=2295) ACCURATE CREATININE CLEARANCE IN PREDICTING GLOMERULAR FILTRATION RATE. ESTIMATED GFR IS NOT APPLICABLE FOR DIALYSIS PATIENTS. CREATINE KINASE (CK)2017-01-30 06:38:00 Test Item Value Reference Range Comments CREATINE KINASE TOTAL (BEAKER) (test yqfk=236) 65 U/L 29-200 [id number] 06:37:00 Test Item Value Reference Range Comments PHOSPHORUS (BEAKER) (test rjvd=405) 3.8 mg/dL 2.3-4.7 [id number] 06:37:00 Test Item Value Reference Range Comments MAGNESIUM (BEAKER) (test sqqi=535) 2.1 mg/dL 1.6-2.6 B-TYPE NATRIURETIC FACTOR (BNP)2017-01-30 06:28:00 Test Item Value Reference Range Comments B-TYPE NATRIURETIC PEPTIDE (BEAKER) (test unjh=226) 36 pg/mL 0-100 [id number] 06:16:00 Test Item Value Reference Range Comments PARTIAL THROMBOPLASTIN TIME (BEAKER) (test 152.1 seconds 22.5-36.0 otaf=650) CALCIUM, [id number] 06:12:00 Test Item Value Reference Range Comments CALCIUM IONIZED (BEAKER) (test pjvh=548) 1.09 mmol/L 1.12-1.27 PH, BLOOD (BEAKER) (test grku=6287) 7.25 [id number] 23:50:00 Test Item Value Reference Range Comments PARTIAL THROMBOPLASTIN TIME (BEAKER) (test 87.0 seconds 22.5-36.0 bwpv=941) [id number] 15:04:00 Test Item Value Reference Range Comments PARTIAL THROMBOPLASTIN TIME (BEAKER) (test 43.2 seconds 22.5-36.0 erqj=178) [id number] 12:41:00 Test Item Value Reference Range Comments PARTIAL THROMBOPLASTIN TIME (BEAKER) (test 192.4 seconds 22.5-36.0 aypn=505) Prior to initiating heparinPLATELET [id number] 12:21:00 Test Item Value Reference Range Comments PLATELET COUNT (BEAKER) (test pvpc=953) 155 K/CU MM 150-430 BASIC METABOLIC [id number] 09:42:00 Test Item Value Reference Range Comments SODIUM (BEAKER) (test 132 meq/L 136-145 sosi=458) POTASSIUM (BEAKER) (test 4.8 meq/L 3.5-5.1 nghc=388) CHLORIDE (BEAKER) (test 106 meq/L 98-107 rsfo=804) CO2 (BEAKER) (test 19 meq/L 22-29 lasj=255) BLOOD UREA NITROGEN 65 mg/dL 7-21 (BEAKER) (test jpis=732) CREATININE (BEAKER) (test 1.29 mg/dL 0.57-1.25 lgmg=175) GLUCOSE RANDOM (BEAKER) 88 mg/dL 70-105 (test nofb=971) CALCIUM (BEAKER) (test 8.9 mg/dL 8.4-10.2 rxmg=779) EGFR (BEAKER) (test 54 mL/min/1.73 sq m ESTIMATED GFR IS NOT naug=1033) ACCURATE CREATININE CLEARANCE IN PREDICTING GLOMERULAR FILTRATION RATE. ESTIMATED GFR IS NOT APPLICABLE FOR DIALYSIS PATIENTS. [id number] 09:30:00 Test Item Value Reference Range Comments PROTIME (BEAKER) (test hmql=142) 15.0 seconds 11.7-14.7 INR (BEAKER) (test uswh=400) 1.2 <=5.9 PARTIAL THROMBOPLASTIN TIME (BEAKER) (test 29.6 seconds 22.5-36.0 kbuj=586) RECOMMENDED COUMADIN/WARFARIN INR THERAPY RANGESSTANDARD DOSE: 2.0 - 3.0 Includes: PROPHYLAXIS forvenous thrombosis, systemic embolization; TREATMENT for venous thrombosis and/or pulmonary embolus.HIGH RISK: Target INR is 2.5-3.5 for patients with mechanical heart valves.CBC W/PLT COUNT & AUTO [id number] 09:26:00 Test Item Value Reference Range Comments WHITE BLOOD CELL COUNT (BEAKER) (test yviy=222) 6.0 K/ L 4.0-10.0 RED BLOOD CELL COUNT (BEAKER) (test xoqm=388) 4.83 M/ L 4.20-5.80 HEMOGLOBIN (BEAKER) (test lmwb=515) 14.3 GM/DL 13.0-16.8 HEMATOCRIT (BEAKER) (test jpoh=078) 42.2 % 40.0-50.0 MEAN CORPUSCULAR VOLUME (BEAKER) (test vtzx=689) 87.5 fL 82.0-98.0 MEAN CORPUSCULAR HEMOGLOBIN (BEAKER) (test 29.7 pg 27.0-33.0 zzes=118) MEAN CORPUSCULAR HEMOGLOBIN CONC (BEAKER) (test 33.9 GM/DL 32.0-36.0 lnbr=509) RED CELL DISTRIBUTION WIDTH (BEAKER) (test 15.9 % 10.3-14.2 ttyd=319) PLATELET COUNT (BEAKER) (test hyhn=694) 141 K/CU MM 150-430 MEAN PLATELET VOLUME (BEAKER) (test ords=509) 8.0 fL 6.5-10.5 NUCLEATED RED BLOOD CELLS (BEAKER) (test 0 /100 WBC 0-0 pebt=944) NEUTROPHILS RELATIVE PERCENT (BEAKER) (test 57 % wndo=408) LYMPHOCYTES RELATIVE PERCENT (BEAKER) (test 20 % nvor=968) MONOCYTES RELATIVE PERCENT (BEAKER) (test 6 % qfwx=142) EOSINOPHILS RELATIVE PERCENT (BEAKER) (test 17 % alpg=369) BASOPHILS RELATIVE PERCENT (BEAKER) (test 0 % xudy=123) NEUTROPHILS ABSOLUTE COUNT (BEAKER) (test 3.40 K/ L 1.80-8.00 lyjx=483) LYMPHOCYTES ABSOLUTE COUNT (BEAKER) (test 1.21 K/ L 1.48-4.50 gnrq=502) MONOCYTES ABSOLUTE COUNT (BEAKER) (test 0.37 K/ L 0.00-1.30 mryd=394) EOSINOPHILS ABSOLUTE COUNT (BEAKER) (test 1.01 K/ L 0.00-0.50 jgrb=619) BASOPHILS ABSOLUTE COUNT (BEAKER) (test 0.02 K/ L 0.00-0.20 pgkz=049) [id number] 18:10:00 Test Item Value Reference Range Comments ACTIVATED CLOTTING TIME 202 sec TESTED AT [facility] [address] (BEAKER) (test bixg=189) [facility] [address] BLOOD [id number] 00:00:00 Test Item Value Reference Range Comments CULTURE (BEAKER) (test zbzp=4144) No growth in 5 days URINE [id number] 11:38:00 Test Item Value Reference Range Comments CULTURE (BEAKER) (test wyfi=8960) No growth [id number] 07:05:00 Test Item Value Reference Range Comments PHOSPHORUS (BEAKER) (test ovkh=251) 3.2 mg/dL 2.3-4.7 [id number] 07:05:00 Test Item Value Reference Range Comments MAGNESIUM (BEAKER) (test mfll=675) 2.3 mg/dL 1.6-2.6 COMPREHENSIVE METABOLIC [id number] 07:05:00 Test Item Value Reference Range Comments TOTAL PROTEIN (BEAKER) 6.2 gm/dL 6.0-8.3 (test rxzc=673) ALBUMIN (BEAKER) (test 3.6 g/dL 3.5-5.0 fsrn=0123) ALKALINE PHOSPHATASE 83 U/L 40-150 (BEAKER) (test ftxf=751) BILIRUBIN TOTAL (BEAKER) 0.5 mg/dL 0.2-1.2 (test vhje=811) SODIUM (BEAKER) (test 135 meq/L 136-145 svxm=116) POTASSIUM (BEAKER) (test 4.2 meq/L 3.5-5.1 szig=313) CHLORIDE (BEAKER) (test 107 meq/L 98-107 uamn=995) CO2 (BEAKER) (test 20 meq/L 22-29 pmgi=921) BLOOD UREA NITROGEN 81 mg/dL 7-21 (BEAKER) (test rgtq=171) CREATININE (BEAKER) (test 1.31 mg/dL 0.57-1.25 cmnz=870) GLUCOSE RANDOM (BEAKER) 85 mg/dL 70-105 (test wadd=737) CALCIUM (BEAKER) (test 8.3 mg/dL 8.4-10.2 ecwr=222) AST (SGOT) (BEAKER) (test 28 U/L 5-34 yizt=529) ALT (SGPT) (BEAKER) (test 58 U/L 6-55 ijtm=961) EGFR (BEAKER) (test 53 mL/min/1.73 sq m ESTIMATED GFR IS NOT cizq=9732) ACCURATE CREATININE CLEARANCE IN PREDICTING GLOMERULAR FILTRATION RATE. ESTIMATED GFR IS NOT APPLICABLE FOR DIALYSIS PATIENTS. CALCIUM, [id number] 06:43:00 Test Item Value Reference Range Comments CALCIUM IONIZED (BEAKER) (test cayc=588) 1.08 mmol/L 1.12-1.27 PH, BLOOD (BEAKER) (test dgmh=8056) 7.35 CBC W/PLT COUNT & AUTO [id number] 06:36:00 Test Item Value Reference Range Comments WHITE BLOOD CELL COUNT (BEAKER) (test sgtm=620) 4.6 K/ L 4.0-10.0 RED BLOOD CELL COUNT (BEAKER) (test wcix=848) 4.96 M/ L 4.20-5.80 HEMOGLOBIN (BEAKER) (test xvka=927) 14.3 GM/DL 13.0-16.8 HEMATOCRIT (BEAKER) (test yclj=144) 43.6 % 40.0-50.0 MEAN CORPUSCULAR VOLUME (BEAKER) (test vqrx=821) 87.9 fL 82.0-98.0 MEAN CORPUSCULAR HEMOGLOBIN (BEAKER) (test 28.8 pg 27.0-33.0 jpdw=942) MEAN CORPUSCULAR HEMOGLOBIN CONC (BEAKER) (test 32.7 GM/DL 32.0-36.0 levc=771) RED CELL DISTRIBUTION WIDTH (BEAKER) (test 14.7 % 10.3-14.2 mkqa=080) PLATELET COUNT (BEAKER) (test gjue=800) 148 K/CU MM 150-430 MEAN PLATELET VOLUME (BEAKER) (test tisp=638) 7.7 fL 6.5-10.5 NUCLEATED RED BLOOD CELLS (BEAKER) (test 0 /100 WBC 0-0 avhy=904) NEUTROPHILS RELATIVE PERCENT (BEAKER) (test 53 % vdkp=178) LYMPHOCYTES RELATIVE PERCENT (BEAKER) (test 32 % nsrb=058) MONOCYTES RELATIVE PERCENT (BEAKER) (test 8 % xugp=513) EOSINOPHILS RELATIVE PERCENT (BEAKER) (test 7 % tvxj=714) BASOPHILS RELATIVE PERCENT (BEAKER) (test 1 % lwzl=803) NEUTROPHILS ABSOLUTE COUNT (BEAKER) (test 2.43 K/ L 1.80-8.00 zgie=850) LYMPHOCYTES ABSOLUTE COUNT (BEAKER) (test 1.46 K/ L 1.48-4.50 ffgd=123) MONOCYTES ABSOLUTE COUNT (BEAKER) (test 0.36 K/ L 0.00-1.30 nlzd=869) EOSINOPHILS ABSOLUTE COUNT (BEAKER) (test 0.31 K/ L 0.00-0.50 wgwg=967) BASOPHILS ABSOLUTE COUNT (BEAKER) (test 0.03 K/ L 0.00-0.20 ribx=124) [id number] 05:54:00 Test Item Value Reference Range Comments PHOSPHORUS (BEAKER) (test lqli=213) 3.8 mg/dL 2.3-4.7 [id number] 05:54:00 Test Item Value Reference Range Comments MAGNESIUM (BEAKER) (test kmgd=141) 2.5 mg/dL 1.6-2.6 BASIC METABOLIC [id number] 05:54:00 Test Item Value Reference Range Comments SODIUM (BEAKER) (test 132 meq/L 136-145 wbat=912) POTASSIUM (BEAKER) (test 4.6 meq/L 3.5-5.1 hgdt=679) CHLORIDE (BEAKER) (test 106 meq/L 98-107 ncak=260) CO2 (BEAKER) (test 18 meq/L 22-29 kehw=056) BLOOD UREA NITROGEN 89 mg/dL 7-21 (BEAKER) (test ndje=308) CREATININE (BEAKER) (test 1.34 mg/dL 0.57-1.25 qgoo=006) GLUCOSE RANDOM (BEAKER) 98 mg/dL 70-105 (test xppx=591) CALCIUM (BEAKER) (test 8.3 mg/dL 8.4-10.2 jvhs=632) EGFR (BEAKER) (test 52 mL/min/1.73 sq m ESTIMATED GFR IS NOT ielf=2234) ACCURATE CREATININE CLEARANCE IN PREDICTING GLOMERULAR FILTRATION RATE. ESTIMATED GFR IS NOT APPLICABLE FOR DIALYSIS PATIENTS. CREATINE KINASE (CK)2017-01-17 05:54:00 Test Item Value Reference Range Comments CREATINE KINASE TOTAL (BEAKER) (test lcux=423) 89 U/L 29-200 CALCIUM, [id number] 05:29:00 Test Item Value Reference Range Comments CALCIUM IONIZED (BEAKER) (test rjnn=805) 1.02 mmol/L 1.12-1.27 PH, BLOOD (BEAKER) (test fygt=1857) 7.33 EOSINOPHIL SMEAR, [id number] 16:25:00 Test Item Value Reference Range Comments EOSINOPHIL SMEAR, URINE (BEAKER) Rare EOS=less than 5% WBCs No EOS seen (test bdzd=1437) seen are EOS BASIC METABOLIC [id number] 16:09:00 Test Item Value Reference Range Comments SODIUM (BEAKER) (test 132 meq/L 136-145 gbcj=832) POTASSIUM (BEAKER) (test 5.2 meq/L 3.5-5.1 pnst=007) CHLORIDE (BEAKER) (test 104 meq/L 98-107 ktgq=081) CO2 (BEAKER) (test 19 meq/L 22-29 kbhk=452) BLOOD UREA NITROGEN 90 mg/dL 7-21 (BEAKER) (test vqcf=759) CREATININE (BEAKER) (test 1.56 mg/dL 0.57-1.25 jgbl=435) GLUCOSE RANDOM (BEAKER) 136 mg/dL 70-105 (test yhsy=107) CALCIUM (BEAKER) (test 9.0 mg/dL 8.4-10.2 icta=752) EGFR (BEAKER) (test 43 mL/min/1.73 sq m ESTIMATED GFR IS NOT dysj=9222) ACCURATE CREATININE CLEARANCE IN PREDICTING GLOMERULAR FILTRATION RATE. ESTIMATED GFR IS NOT APPLICABLE FOR DIALYSIS PATIENTS. OSMOLALITY, [id number] 13:18:00 Test Item Value Reference Range Comments OSMOLALITY URINE (BEAKER) (test ptdf=917) 379 mOsm/kg 40-1400 HEMOGLOBIN [id number] 09:05:00 Test Item Value Reference Range Comments HEMOGLOBIN A1C (BEAKER) (test vwai=778) 5.8 % 4.3-6.1 CBC W/PLT COUNT & AUTO [id number] 07:12:00 Test Item Value Reference Range Comments WHITE BLOOD CELL COUNT (BEAKER) (test xqvc=178) 6.4 K/ L 4.0-10.0 RED BLOOD CELL COUNT (BEAKER) (test yhus=850) 5.33 M/ L 4.20-5.80 HEMOGLOBIN (BEAKER) (test ezll=612) 15.4 GM/DL 13.0-16.8 HEMATOCRIT (BEAKER) (test hfmz=781) 47.1 % 40.0-50.0 MEAN CORPUSCULAR VOLUME (BEAKER) (test kzsq=567) 88.5 fL 82.0-98.0 MEAN CORPUSCULAR HEMOGLOBIN (BEAKER) (test 29.0 pg 27.0-33.0 xojj=673) MEAN CORPUSCULAR HEMOGLOBIN CONC (BEAKER) (test 32.8 GM/DL 32.0-36.0 xens=104) RED CELL DISTRIBUTION WIDTH (BEAKER) (test 15.0 % 10.3-14.2 tomg=011) PLATELET COUNT (BEAKER) (test mweg=365) 157 K/CU MM 150-430 MEAN PLATELET VOLUME (BEAKER) (test nhpn=931) 8.0 fL 6.5-10.5 NUCLEATED RED BLOOD CELLS (BEAKER) (test 0 /100 WBC 0-0 sadu=422) NEUTROPHILS RELATIVE PERCENT (BEAKER) (test 59 % sfpd=666) LYMPHOCYTES RELATIVE PERCENT (BEAKER) (test 27 % dapx=418) MONOCYTES RELATIVE PERCENT (BEAKER) (test 8 % xkgg=806) EOSINOPHILS RELATIVE PERCENT (BEAKER) (test 5 % vddi=761) BASOPHILS RELATIVE PERCENT (BEAKER) (test 1 % qqar=862) NEUTROPHILS ABSOLUTE COUNT (BEAKER) (test 3.79 K/ L 1.80-8.00 hmal=510) LYMPHOCYTES ABSOLUTE COUNT (BEAKER) (test 1.71 K/ L 1.48-4.50 ejtd=271) MONOCYTES ABSOLUTE COUNT (BEAKER) (test 0.54 K/ L 0.00-1.30 srbk=392) EOSINOPHILS ABSOLUTE COUNT (BEAKER) (test 0.31 K/ L 0.00-0.50 omuj=934) BASOPHILS ABSOLUTE COUNT (BEAKER) (test 0.06 K/ L 0.00-0.20 bvjz=658) 0.00BASIC METABOLIC [id number] 06:43:00 Test Item Value Reference Range Comments SODIUM (BEAKER) (test 132 meq/L 136-145 utjr=616) POTASSIUM (BEAKER) (test 5.2 meq/L 3.5-5.1 Specimen slightly cyqs=812) hemolyzed CHLORIDE (BEAKER) (test 107 meq/L 98-107 dywd=462) CO2 (BEAKER) (test 16 meq/L 22-29 tyor=255) BLOOD UREA NITROGEN 90 mg/dL 7-21 (BEAKER) (test vzkp=445) CREATININE (BEAKER) (test 1.45 mg/dL 0.57-1.25 Specimen slightly ymis=196) hemolyzed GLUCOSE RANDOM (BEAKER) 78 mg/dL 70-105 (test wfyb=529) CALCIUM (BEAKER) (test 8.7 mg/dL 8.4-10.2 aahz=894) EGFR (BEAKER) (test 47 mL/min/1.73 sq m ESTIMATED GFR IS NOT cofj=3613) ACCURATE CREATININE CLEARANCE IN PREDICTING GLOMERULAR FILTRATION RATE. ESTIMATED GFR IS NOT APPLICABLE FOR DIALYSIS PATIENTS. URINALYSIS W/ [id number] 03:12:00 Test Item Value Reference Range Comments COLOR (BEAKER) (test tafm=484) Light Yellow CLARITY (BEAKER) (test qljd=915) Clear SPECIFIC GRAVITY UA (BEAKER) (test wxoy=241) 1.009 1.001-1.035 PH UA (BEAKER) (test aygc=751) 6.5 5.0-8.0 PROTEIN UA (BEAKER) (test mqge=999) Negative Negative GLUCOSE UA (BEAKER) (test jkjh=240) Negative Negative KETONES UA (BEAKER) (test lzlh=029) Negative Negative BILIRUBIN UA (BEAKER) (test mutn=660) Negative Negative BLOOD UA (BEAKER) (test htkn=506) Small Negative NITRITE UA (BEAKER) (test crmn=457) Negative Negative LEUKOCYTE ESTERASE UA (BEAKER) (test xjkc=440) Negative Negative UROBILINOGEN UA (BEAKER) (test jomk=809) 0.2 mg/dL 0.2-1.0 RBC UA (BEAKER) (test uzrh=302) 28 /HPF WBC UA (BEAKER) (test yltq=541) 54 /HPF MUCUS (BEAKER) (test fnrq=5157) Rare SOURCE(BEAKER) (test ccuu=8387) Urine, Voided CHLORIDE, RANDOM [id number] 01:29:00 Test Item Value Reference Range Comments CHLORIDE URINE (BEAKER) (test gxkb=206) 62 meq/L Reference Range: No NormalsCREATININE, RANDOM [id number] 01:29:00 Test Item Value Reference Range Comments CREATININE URINE (BEAKER) (test uchg=681) 49.9 mg/dL Reference Range: No NormalsPOTASSIUM, RANDOM [id number] 01:29:00 Test Item Value Reference Range Comments POTASSIUM URINE (BEAKER) (test qccg=952) 18.3 meq/L Reference Range: No NormalsSODIUM, RANDOM [id number] 01:29:00 Test Item Value Reference Range Comments SODIUM URINE (BEAKER) (test ceqg=844) 73 meq/L Reference Range: No NormalsSEDIMENTATION [id number] 21:30:00 Test Item Value Reference Range Comments SEDIMENTATION RATE, ERYTHROCYTE (BEAKER) (test 10 mm/HR 0-40 ismt=625) C-REACTIVE [id number] 20:44:00 Test Item Value Reference Range Comments C-REACTIVE PROTEIN (BEAKER) (test epvp=734) 0.11 mg/dL 0.00-0.50 BASIC METABOLIC [id number] 15:53:00 Test Item Value Reference Range Comments SODIUM (BEAKER) (test 130 meq/L 136-145 iesn=282) POTASSIUM (BEAKER) (test 4.9 meq/L 3.5-5.1 Specimen slightly qima=531) hemolyzed CHLORIDE (BEAKER) (test 106 meq/L 98-107 juul=062) CO2 (BEAKER) (test 14 meq/L 22-29 dlqw=386) BLOOD UREA NITROGEN 84 mg/dL 7-21 (BEAKER) (test pfid=406) CREATININE (BEAKER) (test 1.65 mg/dL 0.57-1.25 Specimen slightly snqm=676) hemolyzed GLUCOSE RANDOM (BEAKER) 102 mg/dL 70-105 (test qara=990) CALCIUM (BEAKER) (test 9.0 mg/dL 8.4-10.2 gbfc=160) EGFR (BEAKER) (test 41 mL/min/1.73 sq m ESTIMATED GFR IS NOT ztvg=7842) ACCURATE CREATININE CLEARANCE IN PREDICTING GLOMERULAR FILTRATION RATE. ESTIMATED GFR IS NOT APPLICABLE FOR DIALYSIS PATIENTS. CBC W/PLT COUNT & AUTO [id number] 15:45:00 Test Item Value Reference Range Comments WHITE BLOOD CELL COUNT (BEAKER) (test lcam=560) 6.1 K/ L 4.0-10.0 RED BLOOD CELL COUNT (BEAKER) (test rucg=289) 5.20 M/ L 4.20-5.80 HEMOGLOBIN (BEAKER) (test rims=186) 15.0 GM/DL 13.0-16.8 HEMATOCRIT (BEAKER) (test ilap=741) 45.4 % 40.0-50.0 MEAN CORPUSCULAR VOLUME (BEAKER) (test hqou=042) 87.3 fL 82.0-98.0 MEAN CORPUSCULAR HEMOGLOBIN (BEAKER) (test 28.8 pg 27.0-33.0 rrtf=350) MEAN CORPUSCULAR HEMOGLOBIN CONC (BEAKER) (test 33.0 GM/DL 32.0-36.0 rxet=399) RED CELL DISTRIBUTION WIDTH (BEAKER) (test 16.4 % 10.3-14.2 fcoz=033) PLATELET COUNT (BEAKER) (test vulc=761) 165 K/CU MM 150-430 MEAN PLATELET VOLUME (BEAKER) (test rzei=639) 8.4 fL 6.5-10.5 NUCLEATED RED BLOOD CELLS (BEAKER) (test 0 /100 WBC 0-0 inqy=430) NEUTROPHILS RELATIVE PERCENT (BEAKER) (test 61 % zugs=658) LYMPHOCYTES RELATIVE PERCENT (BEAKER) (test 27 % wfyz=041) MONOCYTES RELATIVE PERCENT (BEAKER) (test 7 % zess=813) EOSINOPHILS RELATIVE PERCENT (BEAKER) (test 5 % wnfz=112) BASOPHILS RELATIVE PERCENT (BEAKER) (test 0 % lwzq=477) NEUTROPHILS ABSOLUTE COUNT (BEAKER) (test 3.77 K/ L 1.80-8.00 zcfx=410) LYMPHOCYTES ABSOLUTE COUNT (BEAKER) (test 1.63 K/ L 1.48-4.50 oidl=333) MONOCYTES ABSOLUTE COUNT (BEAKER) (test 0.42 K/ L 0.00-1.30 exhd=855) EOSINOPHILS ABSOLUTE COUNT (BEAKER) (test 0.29 K/ L 0.00-0.50 nxgw=478) BASOPHILS ABSOLUTE COUNT (BEAKER) (test 0.02 K/ L 0.00-0.20 zcnk=837) 0.00
--- NOTE | 2019-01-12 15:56 | RAD REPORT ---
EXAM DESCRIPTION: CT - Head C Spine Mpr Wo Con - 01/12/2019 3:29 pm CLINICAL HISTORY: Headache and radiculopathy COMPARISON: And 2016 CT TECHNIQUE: Computed axial tomography of the head and cervical spine was obtained. Sagittal and coronal reconstruction was performed. All CT scans are performed using dose optimization technique as appropriate and may include automated exposure control or mA/KV adjustment according to patient size. FINDINGS: Frontal lobe cerebral atrophy is present. 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 An intracranial bleed is not seen. The ventricles are normal in caliber. An extra-axial fluid collect ion is not noted.Fluid within the visualized sinuses and mastoids is not seen A cervical fracture is not visualized. No dislocation is noted. Mild to moderate spondylosis involves the cervical spine IMPRESSION: No acute intracranial abnormality is seen. A cervical fracture is not visualized. Mild to moderate spondylosis If the patient continues to have symptoms to suggest intracranial /spinal cord/spinal canal pathology then MRI would be recommended
--- NOTE | 2019-01-12 15:57 | RAD REPORT ---
EXAM DESCRIPTION: Demetri Single View01/12/2019 3:41 pm CLINICAL HISTORY: Chest pain COMPARISON: 2017 FINDINGS: The lungs appear clear of acute infiltrate. The heart is normal size IMPRESSION: No acute abnormalities displayed
[2019-01-12 16:26] LABS: Absolute Lymphocytes (CBC) 0.7 K/uL (0.7-4.9); Basophils % 0.7 % (0-1.3); Eosinophils % 1.8 % (0-4.4); Hematocrit 45.5 % (39.6-49.0); Lymphocytes % 12.9 % (15.3-44.8); MPV 8.7 fL (7.6-11.3); Monocytes % 9.2 % (3.3-12.3); Protime INR 1.02; RBC Red Blood Cell Count 5.22 M/uL (4.33-5.43)
[2019-01-12 16:31] LABS: Potassium 5.2 mmol/L (3.5-5.1)
[2019-01-12 16:32] LABS: Albumin 3.3 g/dL (3.4-5.0); Bilirubin Direct 0.3 mg/dL (0-0.2); Bilirubin Total 0.8 mg/dL (0.2-1.0); Magnesium 2.3 mg/dL (1.8-2.4); Protein, Total 6.8 g/dL (6.4-8.2); Troponin (Emerg Dept Use Only) 0.04 ng/mL (0.0-0.045)
--- NOTE | 2019-01-12 17:29 | EDPHYS ---
Physician Documentation [facility] Name: Lisandro Livingston Age: 78 yrs Sex: Male : 1940 Arrival Date: 01/12/2019 Time: 14:29 Bed 28 Private MD: ED Physician Lj Black HPI: 01/12 15:41 This 78 yrs old Male presents to ER via Wheelchair with complaints of snw Headache, Neck Pain, >24Hrs Old, Leg Pain. 15:41 The patient complains of pain to the forehead. The patient describes the headache as snw aching. Onset: The symptoms/episode began/occurred gradually, 2 week(s) ago, and became persistent. Associated signs and symptoms: Pertinent positives: leg pain and swelling. Severity of symptoms: At its worst the pain was mild, moderate. Headache History: Denies prior headaches. The symptoms are alleviated by nothing. It is unknown whether or not the patient has had similar symptoms in the past. pt apparently had an injection to lower cholesterol 2 weeks ago. Family states pt does not wish to see his Doctors. Seems content to give up. Survived bladder cancer 4 years ago and now just wants to be left alone. hx of depression. Historical: - Allergies: 14:44 NKDA; aj - Home Meds: 15:35 Sodium Bicarbonate 10GR tab RIS Oral 3 tabs three times a day [Active]; atorvastatin 40 ca1 mg oral tab 1 tab once daily [Active]; amlodipine 2.5 mg tab 1 tab once daily [Active]; 15:35 Pt is not compliant with medications [Active]; aa5 - PMHx: 15:35 Bladder cancer; Cancer; Hypertension; ca1 - PSHx: 15:35 left leg vein sx; aa5 - Immunization history:: Adult Immunizations not up to date. - Social history:: Smoking status: Patient/guardian denies using tobacco. - Ebola Screening: : Patient negative for fever greater than or equal to 101.5 degrees Fahrenheit, and additional compatible Ebola Virus Disease symptoms Patient denies exposure to infectious person Patient denies travel to an Ebola-affected area in the 21 days before illness onset. ROS: 15:40 Constitutional: Negative for fever, chills, and weight loss, Eyes: Negative for injury, snw pain, redness, and discharge, ENT: Negative for injury, pain, and discharge, Neck: Negative for injury, pain, and swelling, Cardiovascular: Negative for chest pain, palpitations, and edema, Respiratory: Negative for shortness of breath, cough, wheezing, and pleuritic chest pain, Abdomen/GI: Negative for abdominal pain, nausea, vomiting, diarrhea, and constipation, Back: Negative for injury and pain, : Negative for injury, bleeding, discharge, and swelling. 15:40 Skin: Negative for injury, rash, and discoloration. 15:40 MS/extremity: Positive for pain, swelling, bilateral legs. 15:40 Neuro: Positive for headache. Exam: 15:36 Head/Face: Normocephalic, atraumatic. Eyes: Pupils equal round and reactive to light, snw extra-ocular motions intact. Lids and lashes normal. Conjunctiva and sclera are non-icteric and not injected. Cornea within normal limits. Periorbital areas with no swelling, redness, or edema. ENT: Nares patent. No nasal discharge, no septal abnormalities noted. Tympanic membranes are normal and external auditory canals are clear. Oropharynx with no redness, swelling, or masses, exudates, or evidence of obstruction, uvula midline. Mucous membranes moist. Neck: Trachea midline, no thyromegaly or masses palpated, and no cervical lymphadenopathy. Supple, full range of motion without nuchal rigidity, or vertebral point tenderness. No Meningismus. Vital Signs: 14:44 BP 117 / 56; Pulse 70; Resp 16; Temp 98.1; Pulse Ox 96% on R/A; Weight 75.75 kg; Height aj 5 ft. 1 in. (156 cm); 16:27 BP 107 / 54; Pulse 67; Resp 17; Temp 98.6; Pulse Ox 98% ; lt1 17:17 BP 112 / 62; Pulse 69; Resp 20 S; Pulse Ox 98% on R/A; ca1 18:19 BP 121 / 59; Pulse 69; Resp 18; Temp 98; Pulse Ox 100% on R/A; Pain 0/10; mg2 14:44 Body Mass Index 31.13 (75.75 kg, 156 cm) aj MDM: 15:16 Patient medically screened. snw 17:29 Data reviewed: vital signs, nurses notes. Data interpreted: Pulse oximetry: on room air snw is 98 %. Interpretation: normal. Counseling: I had a detailed discussion with the patient and/or guardian regarding: the historical points, exam findings, and any diagnostic results supporting the discharge/admit diagnosis, lab results, radiology results, the need for outpatient follow up, to return to the emergency department if symptoms worsen or persist or if there are any questions or concerns that arise at home. Special discussion: Based on the history and exam findings, there is no indication for further emergent testing or inpatient evaluation. I discussed with the patient/guardian the need to see the primary care provider for further evaluation of the symptoms. 01/12 15:17 Order name: Basic Metabolic Panel snw 01/12 15:17 Order name: CBC with Diff snw 01/12 15:17 Order name: LFT's; Complete Time: : snw 01/12 15:17 Order name: Magnesium; Complete Time: : snw 01/12 15:17 Order name: NT PRO-BNP; Complete Time: : snw 01/12 15:17 Order name: PT-INR; Complete Time: 16: snw 01/12 15:17 Order name: CT Head C Spine; Complete Time: 16: snw 01/12 15:17 Order name: Troponin (emerg Dept Use Only); Complete Time: : snw 01/12 15:17 Order name: XRAY Chest (1 view); Complete Time: 16: snw 01/12 15:17 Order name: EKG; Complete Time: 15:19 snw 01/12 15:17 Order name: Cardiac monitoring; Complete Time: 16: snw 01/12 15:18 Order name: Basic Metabolic Panel; Complete Time: 17: EDMS 01/12 15:18 Order name: CBC with Automated Diff; Complete Time: 16: EDMS 01/12 15:17 Order name: EKG - Nurse/Tech; Complete Time: 16: snw 01/12 15:17 Order name: IV Saline Lock; Complete Time: 16: snw 01/12 15:17 Order name: Labs collected and sent; Complete Time: 16:17 snw 01/12 15:17 Order name: O2 Per Protocol; Complete Time: 16: snw 01/12 15:17 Order name: O2 Sat Monitoring; Complete Time: 16:17 snw Administered Medications: 18:19 Drug: Kayexalate 15 grams Route: PO; mg2 18:19 Follow up: Response: No adverse reaction; Medication administered at discharge. mg2 Disposition: 01/13 10:28 Co-signature as Attending Physician, Lj Black MD I agree with the assessment and kdr plan of care. Disposition: 01/12/19 17:28 Discharged to Home. Impression: Volume depletion, Adjustment disorder with depressed mood. - Condition is Stable. - Discharge Instructions: Dehydration, Elderly, Muscle Pain, Adult, Rehydration, Elderly, Persistent Depressive Disorder. - Medication Reconciliation Form, Thank You Letter, Antibiotic Education, Prescription Opioid Use form. - Follow up: Private Physician; When: 1 - 2 days; Reason: Recheck today's complaints, Continuance of care, Re-evaluation by your physician. Follow up: Emergency Department; When: As needed; Reason: Worsening of condition. Signatures: Dispatcher [employer] EDKatya Meza, RN Lj Epstein MD MD [facility] Gerri Ron, PRIMARY MILL ROLLER-C PRIMARY MILL ROLLER-Csnw Emily Gunderson, RN RN aa5 Yonathan Martinez RN RN mg2 Anisha Dorantes RN RN ca1 Corrections: (The following items were deleted from the chart) 01/12 18:21 17:28 01/12/2019 17:28 Discharged to Home. Impression: Volume depletion; Adjustment mg2 disorder with depressed mood. Condition is Stable. Forms are Medication Reconciliation Form, Thank You Letter, Antibiotic Education, Prescription Opioid Use. Follow up: Private Physician; When: 1 - 2 days; Reason: Recheck today's complaints, Continuance of care, Re-evaluation by your physician. Follow up: Emergency Department; When: As needed; Reason: Worsening of condition. snw
--- NOTE | 2019-01-12 17:29 | ER ---
Nurse's Notes [facility] Name: Lisandro Livingston Age: 78 yrs Sex: Male : 1940 Arrival Date: 01/12/2019 Time: 14:29 Bed 28 Private MD: Diagnosis: Volume depletion;Adjustment disorder with depressed mood Presentation: 01/12 14:43 Presenting complaint: Patient states: Headache and bilateral leg pain for 2 weeks. aj Ambulated with cane to triage with steady gait. 14:43 Acuity: JUDIT 4 aj 15:30 Transition of care: patient was not received from another setting of care. Onset of ca1 symptoms was January 12, 2019. Risk Assessment: Do you want to hurt yourself or someone else? Patient reports no desire to harm self or others. Initial Sepsis Screen: Does the patient meet any 2 criteria? No. Patient's initial sepsis screen is negative. Does the patient have a suspected source of infection? No. Patient's initial sepsis screen is negative. Care prior to arrival: None. 15:30 Method Of Arrival: Wheelchair ca1 Triage Assessment: 14:44 Headache History: The patient has had previous headaches and this one is similar to previous episodes. General: Appears in no apparent distress. comfortable, Behavior is calm, cooperative, appropriate for age. Pain: Complains of pain in face, right leg and left leg. Neuro: Level of Consciousness is awake, alert, obeys commands. Respiratory: Airway is patent Respiratory effort is even, unlabored, Respiratory pattern is regular, symmetrical. Derm: Skin is intact, is healthy with good turgor, Skin is pink, warm \T\ dry. normal. Musculoskeletal: Reports pain in right leg and left leg. Historical: - Allergies: 14:44 NKDA; aj - Home Meds: 15:35 Sodium Bicarbonate 10GR tab RIS Oral 3 tabs three times a day [Active]; atorvastatin 40 ca1 mg oral tab 1 tab once daily [Active]; amlodipine 2.5 mg tab 1 tab once daily [Active]; 15:35 Pt is not compliant with medications [Active]; aa5 - PMHx: 15:35 Bladder cancer; Cancer; Hypertension; ca1 - PSHx: 15:35 left leg vein sx; aa5 - Immunization history:: Adult Immunizations not up to date. - Social history:: Smoking status: Patient/guardian denies using tobacco. - Ebola Screening: : Patient negative for fever greater than or equal to 101.5 degrees Fahrenheit, and additional compatible Ebola Virus Disease symptoms Patient denies exposure to infectious person Patient denies travel to an Ebola-affected area in the 21 days before illness onset. Screenin:29 Abuse screen: Denies threats or abuse. Denies injuries from another. Nutritional ca1 screening: No deficits noted. Tuberculosis screening: No symptoms or risk factors identified. Fall Risk Ambulatory Aid- Crutches/Cane/Walker (15 pts). Assessment: 15:44 General: Appears in no apparent distress. comfortable, Behavior is calm, cooperative, ca1 appropriate for age. Pain: Complains of pain in forehead and left leg and right leg and face Pain currently is 7 out of 10 on a pain scale. Neuro: Level of Consciousness is awake, alert, obeys commands, Oriented to person, place, Shuttle Fixer are equal bilaterally Moves all extremities. Gait is steady, Speech is normal, Facial symmetry appears normal. Cardiovascular: Heart tones S1 S2 present Capillary refill Patient's skin is warm and dry. Pulses are all present. Rhythm is sinus rhythm. Respiratory: Airway is patent Respiratory effort is even, unlabored, Respiratory pattern is regular, symmetrical, Breath sounds are clear bilaterally. GI: Abdomen is round non-distended, Bowel sounds present X 4 quads. Abd is soft and non tender X 4 quads. : No deficits noted. No signs and/or symptoms were reported regarding the genitourinary system. EENT: No deficits noted. No signs and/or symptoms were reported regarding the EENT system. Derm: Skin is intact, is healthy with good turgor, Skin is pink, warm \T\ dry. Musculoskeletal: Circulation, motion, and sensation intact. Capillary refill < 3 seconds, Range of motion: intact in all extremities. 16:40 Reassessment: Patient appears in no apparent distress at this time. Patient and/or ca1 family updated on plan of care and expected duration. Pain level reassessed. Patient is alert, oriented x 3, equal unlabored respirations, skin warm/dry/pink. 17:17 Reassessment: Patient appears in no apparent distress at this time. Patient is alert, ca1 oriented x 3, equal unlabored respirations, skin warm/dry/pink. 18:20 Reassessment: Patient states feeling better. Patient states symptoms have improved. mg2 Vital Signs: 14:44 BP 117 / 56; Pulse 70; Resp 16; Temp 98.1; Pulse Ox 96% on R/A; Weight 75.75 kg; Height aj 5 ft. 1 in. (156 cm); 16:27 BP 107 / 54; Pulse 67; Resp 17; Temp 98.6; Pulse Ox 98% ; lt1 17:17 BP 112 / 62; Pulse 69; Resp 20 S; Pulse Ox 98% on R/A; ca1 18:19 BP 121 / 59; Pulse 69; Resp 18; Temp 98; Pulse Ox 100% on R/A; Pain 0/10; mg2 14:44 Body Mass Index 31.13 (75.75 kg, 156 cm) aj ED Course: 14:29 Patient arrived in ED. as 14:44 Triage completed. aj 14:44 Arm band placed on left wrist. Patient placed in waiting room, Patient notified of wait aj time. 15:16 Gerri Ron FNP-C is PHCP. snw 15:16 Lj Black MD is Attending Physician. snw 15:22 Anisha Dorantes, FAVIOLA is Primary Nurse. ca1 15:[address] via stretcher. em2 15:29 CT Head C Spine In Process Unspecified. EDMS 15:29 Patient has correct armband on for positive identification. Placed in gown. Bed in low ca1 position. Call light in reach. Side rails up X2. logistics loss prevention manager on. Pulse ox on. NIBP on. 15:29 Warm blanket given. ca1 15:29 No provider procedures requiring assistance completed. ca1 15:30 CT completed. Patient tolerated procedure well. em2 15:34 Patient moved to radiology. sj 15:38 XRAY Chest (1 view) In Process Unspecified. EDMS 15:50 Inserted saline lock: 20 gauge in left antecubital area, using aseptic technique. Blood ca1 collected. 18:20 IV discontinued, intact, bleeding controlled, No redness/swelling at site. Pressure mg2 dressing applied. Administered Medications: 18:19 Drug: Kayexalate 15 grams Route: PO; mg2 18:19 Follow up: Response: No adverse reaction; Medication administered at discharge. mg2 Outcome: 17:28 Discharge ordered by . snw 18:20 Discharged to home via wheelchair, with family. mg2 18:20 Condition: stable 18:20 Discharge instructions given to patient, family, Instructed on discharge instructions, follow up and referral plans. Demonstrated understanding of instructions, follow-up care. 18:21 Patient left the ED. mg2 Signatures: Dispatcher [employer] EDKatya Meza RN RN aj Therrien, Shelly, [address] [employer]-C [address] [employer]-Csnw Florecita Paige Amelia as Calderon, Audri, RN RN aa5 Ghulam Wagner em2 Yonathan Martinez RN RN mg2 Anisha Dorantes RN RN ca1 Badillo, Merlene lt1 Corrections: (The following items were deleted from the chart) 14:46 14:44 Arm band placed on left wrist. Patient placed in an exam room, pat stewart 17:17 17:17 BP 112 / 62; Pulse 69bpm; Resp 20bpm; Pulse Ox 98% RA; ca1 ca1
[2019-01-12] MEDS ORDERED: SOD POLYSTYREN SUL 15 GM/60 ML UCUP ONE (17:47)
[2019-01-12 18:47] VITALS: BP 121/59; TEMP 98; O2SAT 100
--- NOTE | 2019-01-13 06:40 | EKG ---
Test Date: 2019-01-12 Test Time: 16:21:36 Painter Hand: VARGAS MEASUREMENT RESULTS: Intervals: Rate: 62 NH: 194 QRSD: 82 QT: 402 QTc: 408 [place]: P: 42 NH: 194 QRS: 14 T: 24 INTERPRETIVE STATEMENTS: Sinus rhythm with premature atrial complexes Nonspecific ST abnormality Abnormal ECG Compared to ECG 12/09/2016 16:05:44 Atrial premature complex(es) now present ST (T wave) deviation now present Sinus bradycardia no longer present First degree AV block no longer present T-wave abnormality no longer present Electronically Signed On 01-13-19 06:39:40 CDT by Stevo Amaya
== END 2019-01-12 18:21 | disposition home or self-care (01) ==
LOC: ER 14:28
DX: E86.9 Volume depletion, unspecified (principal); F43.21 Adjustment disorder with depressed mood; I10 Essential (primary) hypertension; Z85.51 Personal history of malignant neoplasm of bladder
CPT/HCPCS: 36415; 70450; 71045; 72125; 80048; 80076; 83735; 83880; 84484; 85025; 85610; 93005; 99285

== ENCOUNTER 2019-01-16 19:23 | Emergency (ER) | payer MEDICARE ==
--- OUTSIDE RECORDS SUMMARY | 2019-01-16 19:29 | XMS REPORT | Clinical Summary ---
:1940 Author Organization [facility] Address [address] [place] [address] Care Team Providers Name Role Phone Donte [...] INFLUENZA VACCINE 02/17/2019 Results Not on fileafter 01/15/2018 Advance Directives Patient has advance care planning documents on file. For more information, please contact:Jhonatan [id number] [facility]oida HahnNew [facility] [address]
--- OUTSIDE RECORDS SUMMARY | 2019-01-16 19:30 | XMS REPORT | Clinical Summary ---
:1940 Author Organization [facility] Address [address] [place] [address] Care Team Providers Name Role Phone Donte Rosas MD Primary Care Provider Donte Rosas MD Unavailable Allergies Active Allergy Reactions Severity Noted Date Comments Darci Inhibitors Other (See Comments) High 07/27/2015 Hyperkalemia per [facility] file Medications Medication Sig Dispensed Refills Start [...] Primary Dx); MD Connor Peripheral arterial disease ([facility]); Arterial stenosis ([facility]); Back pain, unspecified back location, unspecified back pain laterality , unspecified chronicity 01/28/2018 Surgery Filiep Marte BYPASS,POPLITEAL-TIBI MD Phil AL 01/28/2018 Anesthesia Event Diamond Hand NP 01/28/2018 - Hospital Encounter Cardiology Filipe Marte DOMINIQUE (acute kidney injury) ([facility]); 01/31/2018 MD Phil PAD (peripheral artery disease) ([facility]); Beverly Harris At high risk for hemodynamic instability; MD Bradley Claudication ([facility]); Critical lower limb ischemia; Essential hypertension; Hyperlipidemia, unspecified hyperlipidemia type; Acute postoperative pain 01/18/2018 Hospital Encounter Pre-Admission Filipe Marte DOMINIQUE (acute kidney Testing MD Phil injury) ([facility]) 01/18/2018 Orders Only General Internal Medicine after 01/15/2018 Immunizations Name Dates Previously Given Next Due [...] Not on file Implants Implanted Type Area Learning Coach Device Shelf Model / Identifier Expiration Serial / Date Lot Mynxgrip Vascular Closure Device Df Cardiovascular Left: [id number] 01/16 [id number] / Implanted: Qty: 1 on 01/30/2017 by Filipe Marte MD [facility] / [id number] Mynxgrip Vascular Closure Device Cardiovascular Left: CARDINAL [id number] 08/19/2019 / Implanted: Qty: 1 on 10/02/2017 by Filipe Marte MD [employer] / MARS [id number] Matrix Floseal Hemo W/O Ndl 10 [id number] - [id number] Cement/Filler/Ad Left: GARCIA:BIOSCI 06/22/2019 [id number] / Implanted: Qty: 1 on 01/28/2018 by Filpie Marte MD [employer] / [id number] Synergy Stents-Periphera [place]OSTON [id number] 05/27/2017 [id number] / Implanted: Qty: 1 on 01/30/2017 by Filipe Marte MD l SCIENTIFIC / [id number] Promus Premier Stents-Periphera BOSTON [id number] 04/04/2018 [id number] / Implanted: Qty: 1 on 01/30/2017 by Filipe Marte MD l DoubleRecall / [id number] Promus Premier Stents-Periphera BOSTON [id number] 01/19/2018 [id number] / Implanted: Qty: 1 on 01/30/2017 by Filipe Marte MD l [employer]ENTIFIC / [id number] Promus Premier Stents-Periphera BOSTON [id number] 03/29/2018 [id number] / Implanted: Qty: 1 on 01/30/2017 by Filipe Marte MD l [employer]Recall / [id number] Procedures Procedure Name Priority Date/Time Associated Comments [...] 450 ms QTC Calculation(Bazett) 402 ms P [place] 40 degrees R [place] 1 degrees T [place] 67 degrees Sinus bradycardia T wave abnormality, consider lateral ischemia Abnormal ECG When compared with ECG of 23-JAN-2017 12:31, No significant change was found ECG 12-LEAD Routine 01/18/2018 8:22 AM CDT GLUCOSE Routine 01/18/2018 8:19 AM CDT BUN AND CREATININE Routine 01/18/2018 8:19 AM CDT ELECTROLYTE PANEL Routine 01/18/2018 8:19 AM CDT HEMOGLOBIN Routine 01/18/2018 8:19 AM CDT after 01/15/2018 Results RHYTHM STRIP - SCAN (04/13/2018 12:22 [...] leg, right (04/12/2018 11:51 AM CDT) Ejection [facility]CHO HEARTLAB [facility] Specimen Impressions Performed At Right Impression [facility] ECHO HEARTLAB [facility] 1. There is diffuse calcified plaque in [...] + + + + + + !Mid LINE SUPERVISOR ! !42.8!14.1 ! ! + + + + + + !Dist LINE SUPERVISOR ! !31.8! ! ! + + + [...] Extremity Arterial Duplex SLE ECHO HEARTLAB [facility] Demographics Patient Sonny FLOYD, Date of Study 04/12/2018 SHAY Age 77 Visit [id number] GenderMale Date of 1940 Number Referring Sherri Muñiz Number [id number] Physician Sheet Heater Helper Kari Sellers InterpretingJ. Rudy Owen RN, Sotero [...] Study 04/12/2018 SHAY Age 77 Visit Number [id number] Gender Male Date of 1940 Number Referring Sherri Ryan Room Number [id number] Physician Sheet Heater Helper Kari Sellers Interpreting Yanely Owen RN, RVT [...] + + + ------+ + + !Mid LINE SUPERVISOR ! !42.8 !14.1 ! ! + + + ------+ + + !Dist LINE SUPERVISOR ! !31.8 ! ! ! + + [...] + ------+ + + Performing Organization Address [facility] Phone Number [facility] ECHO HEARTLAB MKCKESSON CPACS XR hip 2 views right (04/12/2018 10:01 AM CDT) Specimen Narrative Performed At FINAL REPORT [facility] CLINICAL HISTORY: LEG PAIN BACK PAIN HIP PAIN TECHNIQUE: 2 views of the right hip COMPARISON: None IMPRESSION: There are degenerative changes of the right hip without evidence of fracture or dislocation. Signed: Tish Tena MD Report Verified Date/Time:04/12/2018 10:42:38 Reading Location: [facility] Reading Room Procedure Note Interface, External Ris In - 04/12/2018 10:52 AM CDT FINAL REPORT CLINICAL HISTORY: LEG PAIN BACK PAIN HIP PAIN TECHNIQUE: 2 views of the right hip COMPARISON: None IMPRESSION: There are degenerative changes of the right hip without evidence of fracture or dislocation. Signed: Tish Tena MD Report Verified Date/Time: 04/12/2018 10:42:38 Reading Location: [facility] Radiology Reading Room Performing Organization Address [facility] Phone Number [facility] XR spine lumbar complete 4 views min (04/12/2018 10:01 AM CDT) Specimen Narrative Performed At FINAL REPORT [facility] CLINICAL HISTORY: LEG PAIN BACK PAIN HIP PAIN TECHNIQUE: Five views of the lumbar spine. 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 There is no evidence for lumbar fracture or dislocation. There are multiple abdominal pelvic surgical clips. Signed: Tish Tena MD Report Verified Date/Time:04/12/2018 10:47:57 Reading Location: [facility] Radiology Reading Room Procedure Note Interface, External [...] Report Verified Date/Time: 04/12/2018 10:47:57 Reading Location: [facility] Radiology Reading Room Performing Organization Address City/State/Zipcode Phone Number [facility] Urinalysis w/Microscopic (04/12/2018 9:47 AM CDT) Color, UA Light Yellow [facility] Clarity, UA Clear [facility] Specific [place], UA 1.008 1.001 - 1.035 [facility] pH, UA 6.5 5.0 - 8.0 [facility] Protein, UA Negative Negative [facility] Glucose, UA Negative Negative [facility] Ketones, UA Negative Negative [facility] Bilirubin, UA Negative Negative [facility] Blood, UA Trace (A) Negative [facility] Nitrite, UA Negative Negative [facility] Leukocytes, UA Moderate (A) Negative [facility] Urobilinogen, UA 0.2 0.2 - 1.0 mg/dL [facility] RBC, UA 4 /HPF [facility] WBC, UA 34 /HPF [facility] Bacteria, UA Moderate [facility] Mucus Rare [facility] Specimen Source Urine, Clean Catch [facility] Specimen Urine Performing Organization Address City/State/Zipcode Phone Number [facility] [address] [place] [address] CENTER CBC with platelet count + automated diff (04/12/2018 9:15 AM CDT)Only the most recent of2 resultswithin the time period is included. WBC 8.0 3.5 - 10.5 K/L [facility] RBC 5.17 4.63 - 6.08 M/L [facility] Hemoglobin 14.0 13.7 - 17.5 GM/DL [facility] Hematocrit 45.0 40.1 - 51.0 % [facility] MCV 87.0 79.0 - 92.2 fL [facility] MCH 27.1 25.7 - 32.2 pg [facility] MCHC 31.1 (L) 32.3 - 36.5 GM/DL [facility] RDW 13.3 11.6 - 14.4 % [facility] Platelets 189 150 - 450 K/CU MM [facility] MPV 10.4 9.4 - 12.4 fL [facility] nRBC 0 0 - 0 /100 WBC [facility] % Neutros 72 % [facility] % Lymphs 20 % [facility] % Monos 7 % [facility] % Eos 1 % [facility] % Baso 1 % [facility] # Neutros 5.73 (H) 1.78 - 5.38 K/L [facility] # Lymphs 1.56 1.32 - 3.57 K/L [facility] # Monos 0.58 0.30 - 0.82 K/L [facility] # Eos 0.09 0.04 - 0.54 K/L [facility] # Baso 0.04 0.01 - 0.08 K/L [facility] Immature Granulocytes-Relative 0 0 - 1 % [facility] Specimen Blood Performing Organization Address City/[facility] Phone Number [address] [address] [phone] [facility] Hepatic function panel (04/12/2018 9:15 AM CDT) Protein, Total 7.2Comment: Specimen 6.0 - 8.3 gm/dL [facility] hemolyzed [facility] Albumin 4.2Comment: Specimen 3.5 - 5.0 g/dL [facility] Total Bilirubin 0.7Comment: Specimen 0.2 - 1.2 mg/dL [facility] Bilirubin, Direct 0.3Comment: Specimen 0.1 - 0.5 mg/dL [facility] Alkaline Phosphatase 80 40 - 150 U/L [facility] AST 23Comment: Specimen 5 - 34 U/L [facility] hemolyzed [facility] ALT 26Comment: Specimen 6 - 55 U/L [facility] Specimen Blood Performing Organization Address City/[facility] Phone Number [address] [address] [phone] [facility] Basic Metabolic Panel (04/12/2018 9:15 AM CDT)Only the most recent of5 resultswithin the time period is included. Sodium 137 136 - 145 meq/L [facility] Potassium 4.7Comment: Specimen slightly 3.5 - 5.1 meq/L [facility] hemolyzed [facility] Chloride 108 (H) 98 - 107 meq/L [facility] CO2 23 22 - 29 meq/L [facility] BUN 87 (H) 7 - 21 mg/dL [facility] Creatinine 1.67 (H)Comment: Specimen 0.57 - 1.25 mg/dL [facility] slightly hemolyzed [facility] Glucose 92 70 - 105 mg/dL [facility] Calcium 8.9 8.4 - 10.2 mg/dL [facility] EGFR Comment: INSUFFICIENT CLINICAL mL/min/1.73 sq m [facility] DATA TO CALCULATE ESTIMATED [facility] CENTER GFR. Specimen Blood Performing Organization Address City/State/Zipcode Phone Number [facility] [address] [place] [address] CENTER CBC (Hemogram only) (01/31/2018 4:47 AM CDT)Only the most recent of4 resultswithin the time period is included. WBC 5.5 3.5 - 10.5 K/L [facility] RBC 4.26 (L) 4.63 - 6.08 M/L [facility] Hemoglobin 12.3 (L) 13.7 - 17.5 GM/DL [facility] Hematocrit 37.8 (L) 40.1 - 51.0 % [facility] MCV 88.7 79.0 - 92.2 fL [facility] MCH 28.9 25.7 - 32.2 pg [facility] MCHC 32.5 32.3 - 36.5 GM/DL [facility] RDW 14.3 11.6 - 14.4 % [facility] Platelets 129 (L) 150 - 450 K/CU MM [facility] MPV 10.7 9.4 - 12.4 fL [facility] nRBC 0 0 - 0 /100 WBC [facility] Specimen Blood Performing Organization Address City/[facility] Phone Number [address] [phone] CENTER Phosphorus (01/31/2018 4:47 AM CDT)Only the most recent of3 resultswithin the time period is included. Phosphorus 2.9 2.3 - 4.7 mg/dL [facility] Specimen Blood Performing Organization Address City/[facility] Phone Number [address] [address] CENTER Magnesium (01/31/2018 4:47 AM CDT)Only the most recent of3 resultswithin the time period is included. Magnesium 2.0 1.6 - 2.6 mg/dL [facility] Specimen Blood Performing Organization Address [facility] Phone Number [address] [address] [facility] POC-Glucose meter (01/30/2018 7:41 AM CDT)Only the most recent of2 resultswithin the time period is included. POC-Glucose Meter 109Comment: TESTED AT 70 - 110 mg/dL [address] [address] Specimen Blood Performing Organization Address [facility] Phone Number [address] [phone] CENTER aPTT (01/28/2018 2:38 PM CDT) PTT 31.2 22.5 - 36.0 seconds [facility] Specimen Blood Performing Organization Address [facility] Phone Number [address] [phone] [facility] POC ACTIVATED CLOTTING TIME (01/28/2018 12:52 PM CDT)Only the most recent of6 resultswithin the time period is included. Activated Clotting Time 120Comment: TESTED AT sec [place] [id number] Specimen Blood Performing Organization Address [facility] Phone Number [address] [address] [phone] [facility] Potassium-Stat Lab (01/28/2018 11:02 AM CDT)Only the most recent of3 resultswithin the time period is included. Potassium 4.2 3.6 - 5.5 meq/L [facility] Specimen Blood, Arterial Performing Organization Address [facility] Phone Number [address] [phone] [facility] Sodium Na-Stat Lab (01/28/2018 11:02 AM CDT)Only the most recent of3 resultswithin the time period is included. Sodium 137 135 - 148 meq/L [facility] Specimen Blood, Arterial Performing Organization Address [facility] Phone Number [address] [address] [facility] Glucose-Stat Lab (01/28/2018 11:02 AM CDT)Only the most recent of3 resultswithin the time period is included. Glucose 104 70 - 110 mg/dL [facility] Specimen Blood, Arterial Performing Organization Address [facility] Phone Number [address] [phone] [facility] HGB/HCT (H&H)-Stat Lab (01/28/2018 11:02 AM CDT)Only the most recent of3 resultswithin the time period is included. Hemoglobin 14.1 13.0 - 16.8 g/dL [facility] Hematocrit 41.0 40.0 - 50.0 % [facility] Specimen Blood, Arterial Performing Organization Address [facility] Phone Number [address] [address] CENTER Calcium, Ionized (01/28/2018 11:02 AM CDT)Only the most recent of3 resultswithin the time period is included. Calcium, Ion 1.12 1.12 - 1.27 mmol/L [facility] pH, Blood 7.40 [facility] Specimen Blood Performing Organization Address [facility] Phone Number [address] [address] [phone] [facility] Blood gas, arterial (01/28/2018 11:02 AM CDT)Only the most recent of3 resultswithin the time period is included. pH, Arterial 7.41 7.35 - 7.45 [facility] pCO2, Arterial 35 35 - 45 mmHg [facility] pO2, Arterial 170 (H) 80 - 90 mmHg [facility] O2 Sat, Arterial 99.2 (H) 96.0 - 97.0 % [facility] HCO3, Arterial 22 21 - 29 mmol/L [facility] Base Excess, Arterial -2.0 -2.0 - 3.0 mmol/L [facility] Patient Temperature 36.0 C [facility] FIO2 55.0 % [facility] Specimen Blood, Arterial Performing Organization Address City/[facility] Phone Number [address] [address] CENTER Type and screen, automated (01/28/2018 6:07 AM CDT) ABO/RH AUTOMATED (BEAKER) O POSITIVE [facility] Ab Scrn NEGATIVE [facility] Specimen Blood Performing Organization Address City/[facility] Phone Number [facility] [address] [place] [phone] Prothrombin time/INR (01/28/2018 6:07 AM CDT) Protime 14.3 11.7 - 14.7 seconds [facility] INR 1.1 <=5.9 [facility] Specimen Blood Narrative Performed At [facility] RECOMMENDED COUMADIN/WARFARIN INR THERAPY RANGES STANDARD DOSE: 2.0 - 3.0 Includes: PROPHYLAXIS for venous thrombosis, systemic embolization; TREATMENT for venous thrombosis and/or pulmonary embolus. HIGH RISK: Target INR is 2.5-3.5 for patients with mechanical heart valves. Performing Organization Address City/[facility] Phone Number [address] [address] CENTER BUN (01/28/2018 6:07 AM CDT) BUN 49 (H) 7 - 21 mg/dL [facility] Specimen Blood Performing Organization Address City/[facility] Phone Number [address] [address] CENTER ECG 12 lead (01/18/2018 8:22 AM CDT) Specimen Narrative Performed At Ventricular Rate 48 BPM GE MUSE Atrial Rate 48 BPM P-R Interval 208 ms QRS Duration 86 ms Q-T Interval 450 ms QTC Calculation(Bazett) 402 ms P [place] 40 degrees R [place] 1 degrees T [place] 67 degrees Sinus bradycardia T wave abnormality, [...] 450 ms QTC Calculation(Bazett) 402 ms P [place] 40 degrees R [place] 1 degrees T [place] 67 degrees Sinus bradycardia T wave abnormality, consider lateral ischemia Abnormal ECG When compared with ECG of 23-JAN-2017 12:31, No significant change was found Confirmed by MD Ananth, Dakotah ([id number]) on 01/19/2018 1:29:09 PM Performing Organization Address City/[facility] Phone Number GE MUSE BUN and Creatinine (01/18/2018 8:19 AM CDT) BUN 55 (H) 7 - 21 mg/dL [facility] Creatinine 1.29 (H)Comment: Specimen 0.57 - 1.25 mg/dL [facility] slightly hemolyzed [facility] EGFR 54Comment: ESTIMATED GFR IS mL/min/1.73 sq m [facility] NOT ACCURATE CREATININE [facility] CENTER CLEARANCE IN PREDICTING GLOMERULAR FILTRATION RATE. ESTIMATED GFR IS NOT APPLICABLE FOR DIALYSIS PATIENTS. Specimen Blood Performing Organization Address [facility] Phone Number [address] [address] CENTER Hemoglobin (01/18/2018 8:19 AM CDT) Hemoglobin 15.9 13.7 - 17.5 GM/DL [facility] Specimen Blood Performing Organization Address [facility] Phone Number [address] [address] CENTER Glucose (01/18/2018 8:19 AM CDT) Glucose 102 70 - 105 mg/dL [facility] Specimen Blood Performing Organization Address [facility] Phone Number [address] [address] [phone] CENTER Electrolytes (01/18/2018 8:19 AM CDT) Sodium 139 136 - 145 meq/L [facility] Potassium 4.9Comment: Specimen slightly 3.5 - 5.1 meq/L [facility] hemolyzed [facility]ENTER Chloride 108 (H) 98 - 107 meq/L [facility] CO2 22 22 - 29 meq/L [facility] Specimen Blood Performing Organization Address City/State/Zipcode Phone Number [facility] [address] [place] [address] CENTER after 01/15/2018 Insurance Payer Benefit Plan / Group Subscriber ID Type Phone Address [employer] - MEDICARE AAR/MEDICARE COMPLETE xxxxxxxxx MGD CARE Ever Personal/Family Self 1940 [address] (Home) [phone] [place], [place] (Work) [address] Advance Directives For more information, please contact:[facility] [place], [place] [phone] Code Status Date Activated Date Inactivated Comments [...]
--- OUTSIDE RECORDS SUMMARY | 2019-01-16 19:33 | XMS REPORT ---
:1940 [facility] [address] [place] [address] [address]. G[address] [place] [address] Care Team Providers Name Role Phone SHIRA [...] REPORT PATIENT ID: LUMBAR, COMPLETE PAINReason for [id number] CLINICAL (MIN 4 VIEWS) exam:->BACK HISTORY: LEG PAINBACK PAINReason for PAINHIP PAIN TECHNIQUE: exam:->HIP PAIN Five views of the lumbar spine. 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 There is no evidence for lumbar fracture or dislocation. There are multiple abdominal pelvic surgical clips. Signed: Tish Meade Verified Date/Time: 04/12/2018 10:47:57 Reading Location: [facility] Radiology Reading Room , HIP, 2 VIEWS, 2018-04-12 10:42:00 Reason for exam:->LEG FINAL REPORT PATIENT ID: RIGHT PAINReason for [id number] CLINICAL exam:->BACK HISTORY: LEG PAINBACK PAINReason for PAINHIP PAIN TECHNIQUE: exam:->HIP PAIN 2 views of the right hip COMPARISON: None IMPRESSION: There are degenerative changes of the right hip without evidence of fracture or dislocation. Signed: Tish Meade Verified Date/Time: 04/12/2018 10:42:38 [facility] ALYSIS W/ MICROSCOPIC 2018-04-12 10:24:00 Test Item Value Reference Range Comments COLOR (BEAKER) (test teeh=065) Light Yellow CLARITY (BEAKER) (test qjsp=151) Clear SPECIFIC GRAVITY UA (BEAKER) (test bpmd=326) 1.008 1.001-1.035 PH UA (BEAKER) (test cosz=735) 6.5 5.0-8.0 PROTEIN UA (BEAKER) (test qrdd=415) Negative Negative GLUCOSE UA (BEAKER) (test odxf=067) Negative Negative KETONES UA (BEAKER) (test udou=886) Negative Negative BILIRUBIN UA (BEAKER) (test jttp=916) Negative Negative BLOOD UA (BEAKER) (test jgdm=355) Trace Negative NITRITE UA (BEAKER) (test hjnp=062) Negative Negative LEUKOCYTE ESTERASE UA (BEAKER) (test elrd=026) Moderate Negative UROBILINOGEN UA (BEAKER) (test wsxf=175) 0.2 mg/dL 0.2-1.0 RBC UA (BEAKER) (test fstf=200) 4 /HPF WBC UA (BEAKER) (test seza=731) 34 /HPF BACTERIA (BEAKER) (test pgeu=228) Moderate MUCUS (BEAKER) (test rsfk=5616) Rare SOURCE(BEAKER) (test drfu=5059) Urine, Clean Catch BASIC METABOLIC [id number] 10:05:00 Test Item Value Reference Range Comments SODIUM (BEAKER) (test 137 meq/L 136-145 pkho=134) POTASSIUM (BEAKER) (test 4.7 meq/L 3.5-5.1 Specimen slightly kxwk=317) hemolyzed CHLORIDE (BEAKER) (test 108 meq/L 98-107 rqdn=626) CO2 (BEAKER) (test 23 meq/L 22-29 uhob=294) BLOOD UREA NITROGEN 87 mg/dL 7-21 (BEAKER) (test snth=432) CREATININE (BEAKER) (test 1.67 mg/dL 0.57-1.25 Specimen slightly cnmp=957) hemolyzed GLUCOSE RANDOM (BEAKER) 92 mg/dL 70-105 (test jouu=505) CALCIUM (BEAKER) (test 8.9 mg/dL 8.4-10.2 wqrb=876) EGFR (BEAKER) (test mL/min/1.73 sq m INSUFFICIENT CLINICAL DATA spsj=2706) TO CALCULATE ESTIMATED GFR. HEPATIC FUNCTION [id number] 09:44:00 Test Item Value Reference Range Comments TOTAL PROTEIN (BEAKER) (test 7.2 gm/dL 6.0-8.3 Specimen slightly hemolyzed lhgz=176) ALBUMIN (BEAKER) (test 4.2 g/dL 3.5-5.0 Specimen slightly hemolyzed igxt=8175) BILIRUBIN TOTAL (BEAKER) (test 0.7 mg/dL 0.2-1.2 Specimen slightly hemolyzed ojex=780) BILIRUBIN DIRECT (BEAKER) (test 0.3 mg/dL 0.1-0.5 Specimen slightly hemolyzed zxxx=274) ALKALINE PHOSPHATASE (BEAKER) 80 U/L 40-150 (test sear=130) AST (SGOT) (BEAKER) (test 23 U/L 5-34 Specimen slightly hemolyzed ugfm=955) ALT (SGPT) (BEAKER) (test 26 U/L 6-55 Specimen slightly hemolyzed gjhk=214) CBC W/PLT COUNT & AUTO [id number] 09:27:00 Test Item Value Reference Range Comments WHITE BLOOD CELL COUNT (BEAKER) (test abhb=567) 8.0 K/ L 3.5-10.5 RED BLOOD CELL COUNT (BEAKER) (test hlyf=937) 5.17 M/ L 4.63-6.08 HEMOGLOBIN (BEAKER) (test exil=026) 14.0 GM/DL 13.7-17.5 HEMATOCRIT (BEAKER) (test wavj=750) 45.0 % 40.1-51.0 MEAN CORPUSCULAR VOLUME (BEAKER) (test vofg=356) 87.0 fL 79.0-92.2 MEAN CORPUSCULAR HEMOGLOBIN (BEAKER) (test 27.1 pg 25.7-32.2 llrz=285) MEAN CORPUSCULAR HEMOGLOBIN CONC (BEAKER) (test 31.1 GM/DL 32.3-36.5 muzs=184) RED CELL DISTRIBUTION WIDTH (BEAKER) (test 13.3 % 11.6-14.4 yygn=645) PLATELET COUNT (BEAKER) (test wyom=192) 189 K/CU MM 150-450 MEAN PLATELET VOLUME (BEAKER) (test gadr=310) 10.4 fL 9.4-12.4 NUCLEATED RED BLOOD CELLS (BEAKER) (test 0 /100 WBC 0-0 ioqm=815) NEUTROPHILS RELATIVE PERCENT (BEAKER) (test 72 % dedd=230) LYMPHOCYTES RELATIVE PERCENT (BEAKER) (test 20 % kqlp=639) MONOCYTES RELATIVE PERCENT (BEAKER) (test 7 % avew=807) EOSINOPHILS RELATIVE PERCENT (BEAKER) (test 1 % afzr=013) BASOPHILS RELATIVE PERCENT (BEAKER) (test 1 % qjso=548) NEUTROPHILS ABSOLUTE COUNT (BEAKER) (test 5.73 K/ L 1.78-5.38 nppe=752) LYMPHOCYTES ABSOLUTE COUNT (BEAKER) (test 1.56 K/ L 1.32-3.57 qzyq=809) MONOCYTES ABSOLUTE COUNT (BEAKER) (test 0.58 K/ L 0.30-0.82 iyrq=715) EOSINOPHILS ABSOLUTE COUNT (BEAKER) (test 0.09 K/ L 0.04-0.54 mwis=978) BASOPHILS ABSOLUTE COUNT (BEAKER) (test 0.04 K/ L 0.01-0.08 turp=270) IMMATURE GRANULOCYTES-RELATIVE PERCENT (BEAKER) 0 % 0-1 (test yqhi=4534) [id number] 06:07:00 Test Item Value Reference Range Comments PHOSPHORUS (BEAKER) (test ozim=386) 2.9 mg/dL 2.3-4.7 [id number] 06:07:00 Test Item Value Reference Range Comments MAGNESIUM (BEAKER) (test ruyb=463) 2.0 mg/dL 1.6-2.6 BASIC METABOLIC [id number] 06:07:00 Test Item Value Reference Range Comments SODIUM (BEAKER) (test 136 meq/L 136-145 nkgh=823) POTASSIUM (BEAKER) (test 4.4 meq/L 3.5-5.1 hzkj=324) CHLORIDE (BEAKER) (test 105 meq/L 98-107 pyrg=170) CO2 (BEAKER) (test 23 meq/L 22-29 vyoj=745) BLOOD UREA NITROGEN 51 mg/dL 7-21 (BEAKER) (test sqjy=713) CREATININE (BEAKER) (test 1.05 mg/dL 0.57-1.25 fusz=346) GLUCOSE RANDOM (BEAKER) 116 mg/dL 70-105 (test tzce=689) CALCIUM (BEAKER) (test 8.5 mg/dL 8.4-10.2 mafl=602) EGFR (BEAKER) (test 68 mL/min/1.73 sq m ESTIMATED GFR IS NOT zaqj=6261) ACCURATE CREATININE CLEARANCE IN PREDICTING GLOMERULAR FILTRATION RATE. ESTIMATED GFR IS NOT APPLICABLE FOR DIALYSIS PATIENTS. CBC (HEMOGRAM ONLY)2018-01-31 05:18:00 Test Item Value Reference Range Comments WHITE BLOOD CELL COUNT (BEAKER) (test phra=149) 5.5 K/ L 3.5-10.5 RED BLOOD CELL COUNT (BEAKER) (test bsmn=082) 4.26 M/ L 4.63-6.08 HEMOGLOBIN (BEAKER) (test glkv=208) 12.3 GM/DL 13.7-17.5 HEMATOCRIT (BEAKER) (test mbai=717) 37.8 % 40.1-51.0 MEAN CORPUSCULAR VOLUME (BEAKER) (test xtlc=658) 88.7 fL 79.0-92.2 MEAN CORPUSCULAR HEMOGLOBIN (BEAKER) (test 28.9 pg 25.7-32.2 falr=105) MEAN CORPUSCULAR HEMOGLOBIN CONC (BEAKER) (test 32.5 GM/DL 32.3-36.5 xxlp=354) RED CELL DISTRIBUTION WIDTH (BEAKER) (test 14.3 % 11.6-14.4 kwnn=550) PLATELET COUNT (BEAKER) (test fduc=349) 129 K/CU MM 150-450 MEAN PLATELET VOLUME (BEAKER) (test thfl=846) 10.7 fL 9.4-12.4 NUCLEATED RED BLOOD CELLS (BEAKER) (test 0 /100 WBC 0-0 igxq=143) POCT-GLUCOSE [id number] 08:10:00 Test Item Value Reference Range Comments POC-GLUCOSE METER (BEAKER) 109 mg/dL 70-110 TESTED AT [facility] [address] [facility] (test ineo=3340) [facility] [address] [id number] 05:39:00 Test Item Value Reference Range Comments PHOSPHORUS (BEAKER) (test wiyi=001) 3.2 mg/dL 2.3-4.7 [id number] 05:39:00 Test Item Value Reference Range Comments MAGNESIUM (BEAKER) (test fxwk=106) 2.1 mg/dL 1.6-2.6 BASIC METABOLIC [id number] 05:39:00 Test Item Value Reference Range Comments SODIUM (BEAKER) (test 136 meq/L 136-145 wmyu=261) POTASSIUM (BEAKER) (test 4.8 meq/L 3.5-5.1 atei=250) CHLORIDE (BEAKER) (test 108 meq/L 98-107 rrdb=869) CO2 (BEAKER) (test 23 meq/L 22-29 vzpr=023) BLOOD UREA NITROGEN 49 mg/dL 7-21 (BEAKER) (test ltxr=098) CREATININE (BEAKER) (test 1.08 mg/dL 0.57-1.25 xijl=574) GLUCOSE RANDOM (BEAKER) 102 mg/dL 70-105 (test blsd=909) CALCIUM (BEAKER) (test 8.5 mg/dL 8.4-10.2 pdgl=789) EGFR (BEAKER) (test 66 mL/min/1.73 sq m ESTIMATED GFR IS NOT wvfl=7619) ACCURATE CREATININE CLEARANCE IN PREDICTING GLOMERULAR FILTRATION RATE. ESTIMATED GFR IS NOT APPLICABLE FOR DIALYSIS PATIENTS. CBC (HEMOGRAM ONLY)2018-01-30 05:37:00 Test Item Value Reference Range Comments WHITE BLOOD CELL COUNT (BEAKER) (test vzkw=293) 5.4 K/ L 3.5-10.5 RED BLOOD CELL COUNT (BEAKER) (test ttcz=234) 4.28 M/ L 4.63-6.08 HEMOGLOBIN (BEAKER) (test waci=928) 12.3 GM/DL 13.7-17.5 HEMATOCRIT (BEAKER) (test hzhc=754) 38.5 % 40.1-51.0 MEAN CORPUSCULAR VOLUME (BEAKER) (test qhth=819) 90.0 fL 79.0-92.2 MEAN CORPUSCULAR HEMOGLOBIN (BEAKER) (test 28.7 pg 25.7-32.2 hcdb=891) MEAN CORPUSCULAR HEMOGLOBIN CONC (BEAKER) (test 31.9 GM/DL 32.3-36.5 zves=435) RED CELL DISTRIBUTION WIDTH (BEAKER) (test 14.4 % 11.6-14.4 fegh=358) PLATELET COUNT (BEAKER) (test jnqg=838) 119 K/CU MM 150-450 MEAN PLATELET VOLUME (BEAKER) (test ccnq=457) 10.4 fL 9.4-12.4 NUCLEATED RED BLOOD CELLS (BEAKER) (test 0 /100 WBC 0-0 hbos=944) POCT-GLUCOSE [id number] 21:31:00 Test Item Value Reference Range Comments POC-GLUCOSE METER (BEAKER) 136 mg/dL 70-110 TESTED AT [facility] [address] [facility] (test fpwt=2159) [facility] [address] [id number] 03:49:00 Test Item Value Reference Range Comments PHOSPHORUS (BEAKER) (test keiu=186) 4.2 mg/dL 2.3-4.7 [id number] 03:49:00 Test Item Value Reference Range Comments MAGNESIUM (BEAKER) (test evvq=648) 2.0 mg/dL 1.6-2.6 BASIC METABOLIC [id number] 03:49:00 Test Item Value Reference Range Comments SODIUM (BEAKER) (test 138 meq/L 136-145 qpzg=386) POTASSIUM (BEAKER) (test 4.3 meq/L 3.5-5.1 gyap=270) CHLORIDE (BEAKER) (test 110 meq/L 98-107 fsfb=741) CO2 (BEAKER) (test 19 meq/L 22-29 znqx=907) BLOOD UREA NITROGEN 47 mg/dL 7-21 (BEAKER) (test rnui=525) CREATININE (BEAKER) (test 1.08 mg/dL 0.57-1.25 ueqs=973) GLUCOSE RANDOM (BEAKER) 138 mg/dL 70-105 (test jmck=038) CALCIUM (BEAKER) (test 8.6 mg/dL 8.4-10.2 hgzc=977) EGFR (BEAKER) (test 66 mL/min/1.73 sq m ESTIMATED GFR IS NOT eubq=2473) ACCURATE CREATININE CLEARANCE IN PREDICTING GLOMERULAR FILTRATION RATE. ESTIMATED GFR IS NOT APPLICABLE FOR DIALYSIS PATIENTS. CBC (HEMOGRAM ONLY)2018-01-29 03:38:00 Test Item Value Reference Range Comments WHITE BLOOD CELL COUNT (BEAKER) (test wadh=577) 5.6 K/ L 3.5-10.5 RED BLOOD CELL COUNT (BEAKER) (test ouxb=362) 4.48 M/ L 4.63-6.08 HEMOGLOBIN (BEAKER) (test ugup=169) 12.7 GM/DL 13.7-17.5 HEMATOCRIT (BEAKER) (test buqg=326) 39.8 % 40.1-51.0 MEAN CORPUSCULAR VOLUME (BEAKER) (test hiua=588) 88.8 fL 79.0-92.2 MEAN CORPUSCULAR HEMOGLOBIN (BEAKER) (test 28.3 pg 25.7-32.2 hqmk=652) MEAN CORPUSCULAR HEMOGLOBIN CONC (BEAKER) (test 31.9 GM/DL 32.3-36.5 mell=915) RED CELL DISTRIBUTION WIDTH (BEAKER) (test 14.3 % 11.6-14.4 zqto=289) PLATELET COUNT (BEAKER) (test prsz=633) 143 K/CU MM 150-450 MEAN PLATELET VOLUME (BEAKER) (test gooj=290) 10.3 fL 9.4-12.4 NUCLEATED RED BLOOD CELLS (BEAKER) (test 0 /100 WBC 0-0 dtgm=057) [id number] 15:06:00 Test Item Value Reference Range Comments PARTIAL THROMBOPLASTIN TIME (BEAKER) (test 31.2 seconds 22.5-36.0 vhyi=816) BASIC METABOLIC [id number] 15:05:00 Test Item Value Reference Range Comments SODIUM (BEAKER) (test 139 meq/L 136-145 hfps=125) POTASSIUM (BEAKER) (test 4.5 meq/L 3.5-5.1 wnsx=643) CHLORIDE (BEAKER) (test 113 meq/L 98-107 vsma=281) CO2 (BEAKER) (test 19 meq/L 22-29 jebn=966) BLOOD UREA NITROGEN 48 mg/dL 7-21 (BEAKER) (test ilxq=484) CREATININE (BEAKER) (test 1.20 mg/dL 0.57-1.25 ailu=479) GLUCOSE RANDOM (BEAKER) 133 mg/dL 70-105 (test yakk=345) CALCIUM (BEAKER) (test 9.0 mg/dL 8.4-10.2 npzw=866) EGFR (BEAKER) (test 58 mL/min/1.73 sq m ESTIMATED GFR IS NOT vuzv=7486) ACCURATE CREATININE CLEARANCE IN PREDICTING GLOMERULAR FILTRATION RATE. ESTIMATED GFR IS NOT APPLICABLE FOR DIALYSIS PATIENTS. CBC (HEMOGRAM ONLY)2018-01-28 14:49:00 Test Item Value Reference Range Comments WHITE BLOOD CELL COUNT (BEAKER) (test fqqn=630) 8.0 K/ L 3.5-10.5 RED BLOOD CELL COUNT (BEAKER) (test zfne=904) 4.73 M/ L 4.63-6.08 HEMOGLOBIN (BEAKER) (test broy=629) 13.6 GM/DL 13.7-17.5 HEMATOCRIT (BEAKER) (test vbhv=976) 41.3 % 40.1-51.0 MEAN CORPUSCULAR VOLUME (BEAKER) (test oxbo=450) 87.3 fL 79.0-92.2 MEAN CORPUSCULAR HEMOGLOBIN (BEAKER) (test 28.8 pg 25.7-32.2 cepn=754) MEAN CORPUSCULAR HEMOGLOBIN CONC (BEAKER) (test 32.9 GM/DL 32.3-36.5 qqbx=719) RED CELL DISTRIBUTION WIDTH (BEAKER) (test 14.3 % 11.6-14.4 svpf=569) PLATELET COUNT (BEAKER) (test dolh=074) 146 K/CU MM 150-450 MEAN PLATELET VOLUME (BEAKER) (test fszm=539) 10.1 fL 9.4-12.4 NUCLEATED RED BLOOD CELLS (BEAKER) (test 0 /100 WBC 0-0 fmwj=044) [id number] 12:59:00 Test Item Value Reference Range Comments ACTIVATED CLOTTING TIME 120 sec TESTED AT [facility] [address] (BEAKER) (test bsog=013) [facility] [address] [id number] 12:59:00 Test Item Value Reference Range Comments ACTIVATED CLOTTING TIME 230 sec TESTED AT [facility] [address] (BEAKER) (test efms=172) [facility] [address] [id number] 12:59:00 Test Item Value Reference Range Comments ACTIVATED CLOTTING TIME 257 sec TESTED AT [facility] [address] (BEAKER) (test hhtg=128) [place] [address] [id number] 12:59:00 Test Item Value Reference Range Comments ACTIVATED CLOTTING TIME 246 sec TESTED AT [facility] [address] (BEAKER) (test uhpk=159) [place] [address] [id number] 12:59:00 Test Item Value Reference Range Comments ACTIVATED CLOTTING TIME 263 sec TESTED AT [facility] [address] (BEAKER) (test xoyf=799) [place] [address] [id number] 12:59:00 Test Item Value Reference Range Comments ACTIVATED CLOTTING TIME 263 sec TESTED AT [facility] [address] (BEAKER) (test vvee=092) [place] [address] BLOOD GAS, [id number] 11:14:00 Test Item Value Reference Range Comments PH ARTERIAL (BEAKER) (test xkkb=490) 7.41 7.35-7.45 PCO2 ARTERIAL (BEAKER) (test eeym=895) 35 mmHg 35-45 PO2 ARTERIAL (BEAKER) (test chfp=294) 170 mmHg 80-90 O2 SATURATION ARTERIAL (BEAKER) (test fvak=960) 99.2 % 96.0-97.0 HCO3 ARTERIAL (BEAKER) (test izzw=127) 22 mmol/L 21-29 BASE EXCESS ARTERIAL (BEAKER) (test zmqt=111) -2.0 mmol/L -2.0-3.0 PATIENT TEMPERATURE (BEAKER) (test gvss=0701) 36.0 C FIO2 (BEAKER) (test fbok=0351) 55.0 % GLUCOSE-STAT [id number] 11:13:00 Test Item Value Reference Range Comments GLUCOSE RANDOM (BEAKER) (test fmdt=523) 104 mg/dL 70-110 SODIUM NA-STAT [id number] 11:13:00 Test Item Value Reference Range Comments SODIUM (BEAKER) (test imrb=163) 137 meq/L 135-148 POTASSIUM-STAT [id number] 11:13:00 Test Item Value Reference Range Comments POTASSIUM (BEAKER) (test ortu=238) 4.2 meq/L 3.6-5.5 HGB/HCT (H&H) - STAT [id number] 11:13:00 Test Item Value Reference Range Comments HEMOGLOBIN (BEAKER) (test cdns=535) 14.1 g/dL 13.0-16.8 HEMATOCRIT (BEAKER) (test ndbd=530) 41.0 % 40.0-50.0 CALCIUM, [id number] 11:13:00 Test Item Value Reference Range Comments CALCIUM IONIZED (BEAKER) (test egjs=100) 1.12 mmol/L 1.12-1.27 PH, BLOOD (BEAKER) (test vaow=7656) 7.40 GLUCOSE-STAT [id number] 10:14:00 Test Item Value Reference Range Comments GLUCOSE RANDOM (BEAKER) (test grcy=201) 105 mg/dL 70-110 SODIUM NA-STAT [id number] 10:14:00 Test Item Value Reference Range Comments SODIUM (BEAKER) (test gtjw=192) 135 meq/L 135-148 POTASSIUM-STAT [id number] 10:14:00 Test Item Value Reference Range Comments POTASSIUM (BEAKER) (test ekjj=581) 4.4 meq/L 3.6-5.5 HGB/HCT (H&H) - STAT [id number] 10:14:00 Test Item Value Reference Range Comments HEMOGLOBIN (BEAKER) (test mogx=458) 14.5 g/dL 13.0-16.8 HEMATOCRIT (BEAKER) (test eujx=501) 43.0 % 40.0-50.0 CALCIUM, [id number] 10:14:00 Test Item Value Reference Range Comments CALCIUM IONIZED (BEAKER) (test shhr=207) 1.18 mmol/L 1.12-1.27 PH, BLOOD (BEAKER) (test vozu=0477) 7.34 BLOOD GAS, [id number] 10:14:00 Test Item Value Reference Range Comments PH ARTERIAL (BEAKER) (test uatx=235) 7.36 7.35-7.45 PCO2 ARTERIAL (BEAKER) (test alah=200) 36 mmHg 35-45 PO2 ARTERIAL (BEAKER) (test cwsp=831) 293 mmHg 80-90 O2 SATURATION ARTERIAL (BEAKER) (test popn=674) 99.7 % 96.0-97.0 HCO3 ARTERIAL (BEAKER) (test gkmo=333) 20 mmol/L 21-29 BASE EXCESS ARTERIAL (BEAKER) (test eole=602) -5.3 mmol/L -2.0-3.0 PATIENT TEMPERATURE (BEAKER) (test rfth=6906) 35.6 C FIO2 (BEAKER) (test fgsd=9849) 70.0 % SODIUM NA-STAT [id number] 08:32:00 Test Item Value Reference Range Comments SODIUM (BEAKER) (test yylh=397) 134 meq/L 135-148 CALCIUM, [id number] 08:31:00 Test Item Value Reference Range Comments CALCIUM IONIZED (BEAKER) (test ffwh=656) 1.07 mmol/L 1.12-1.27 PH, BLOOD (BEAKER) (test fqve=5053) 7.33 BLOOD GAS, [id number] 08:31:00 Test Item Value Reference Range Comments PH ARTERIAL (BEAKER) (test yzli=303) 7.36 7.35-7.45 PCO2 ARTERIAL (BEAKER) (test jgfi=645) 36 mmHg 35-45 PO2 ARTERIAL (BEAKER) (test bnur=163) 187 mmHg 80-90 O2 SATURATION ARTERIAL (BEAKER) (test wrro=067) 99.3 % 96.0-97.0 HCO3 ARTERIAL (BEAKER) (test sytt=634) 21 mmol/L 21-29 BASE EXCESS ARTERIAL (BEAKER) (test sjxp=857) -4.9 mmol/L -2.0-3.0 PATIENT TEMPERATURE (BEAKER) (test pivx=5315) 35.0 C FIO2 (BEAKER) (test vdim=9423) 60.0 % GLUCOSE-STAT [id number] 08:30:00 Test Item Value Reference Range Comments GLUCOSE RANDOM (BEAKER) (test gysj=755) 97 mg/dL 70-110 POTASSIUM-STAT [id number] 08:30:00 Test Item Value Reference Range Comments POTASSIUM (BEAKER) (test dwwn=773) 4.6 meq/L 3.6-5.5 HGB/HCT (H&H) - STAT [id number] 08:30:00 Test Item Value Reference Range Comments HEMOGLOBIN (BEAKER) (test hnom=560) 15.0 g/dL 13.0-16.8 HEMATOCRIT (BEAKER) (test rnuz=901) 44.0 % 40.0-50.0 [id number] 07:27:00 Test Item Value Reference Range Comments BLOOD UREA NITROGEN (BEAKER) (test eyml=578) 49 mg/dL 7-21 PROTHROMBIN [id number] 06:48:00 Test Item Value Reference Range Comments PROTIME (BEAKER) (test vaxl=502) 14.3 seconds 11.7-14.7 INR (BEAKER) (test fnwh=055) 1.1 <=5.9 RECOMMENDED COUMADIN/WARFARIN INR THERAPY RANGESSTANDARD DOSE: 2.0 - 3.0 Includes: PROPHYLAXIS forvenous thrombosis, systemic embolization; TREATMENT for venous thrombosis and/or pulmonary embolus.HIGH RISK: Target INR is 2.5-3.5 for patients with mechanical heart valves.CBC W/PLT COUNT & AUTO [id number] 06:42:00 Test Item Value Reference Range Comments WHITE BLOOD CELL COUNT (BEAKER) (test ixlz=156) 4.8 K/ L 3.5-10.5 RED BLOOD CELL COUNT (BEAKER) (test tujc=607) 5.24 M/ L 4.63-6.08 HEMOGLOBIN (BEAKER) (test zrpz=038) 15.1 GM/DL 13.7-17.5 HEMATOCRIT (BEAKER) (test ygeb=742) 45.0 % 40.1-51.0 MEAN CORPUSCULAR VOLUME (BEAKER) (test uxdc=599) 85.9 fL 79.0-92.2 MEAN CORPUSCULAR HEMOGLOBIN (BEAKER) (test 28.8 pg 25.7-32.2 khib=137) MEAN CORPUSCULAR HEMOGLOBIN CONC (BEAKER) (test 33.6 GM/DL 32.3-36.5 eksa=225) RED CELL DISTRIBUTION WIDTH (BEAKER) (test 14.2 % 11.6-14.4 pilf=275) PLATELET COUNT (BEAKER) (test rpdo=697) 154 K/CU MM 150-450 MEAN PLATELET VOLUME (BEAKER) (test oqyx=562) 10.3 fL 9.4-12.4 NUCLEATED RED BLOOD CELLS (BEAKER) (test 0 /100 WBC 0-0 qcyd=572) NEUTROPHILS RELATIVE PERCENT (BEAKER) (test 63 % sjkm=859) LYMPHOCYTES RELATIVE PERCENT (BEAKER) (test 23 % cdoa=428) MONOCYTES RELATIVE PERCENT (BEAKER) (test 7 % ksyz=764) EOSINOPHILS RELATIVE PERCENT (BEAKER) (test 6 % gmyo=807) BASOPHILS RELATIVE PERCENT (BEAKER) (test 1 % azql=262) NEUTROPHILS ABSOLUTE COUNT (BEAKER) (test 3.00 K/ L 1.78-5.38 pfio=165) LYMPHOCYTES ABSOLUTE COUNT (BEAKER) (test 1.11 K/ L 1.32-3.57 pwbh=244) MONOCYTES ABSOLUTE COUNT (BEAKER) (test 0.33 K/ L 0.30-0.82 ggzp=613) EOSINOPHILS ABSOLUTE COUNT (BEAKER) (test 0.29 K/ L 0.04-0.54 bxyp=688) BASOPHILS ABSOLUTE COUNT (BEAKER) (test 0.04 K/ L 0.01-0.08 moga=679) IMMATURE GRANULOCYTES-RELATIVE PERCENT (BEAKER) 0 % 0-1 (test icww=0153) [id number] 11:22:00 Test Item Value Reference Range Comments SODIUM (BEAKER) (test gfsh=211) 139 meq/L 136-145 POTASSIUM (BEAKER) (test 4.9 meq/L 3.5-5.1 Specimen slightly hemolyzed qqtt=423) CHLORIDE (BEAKER) (test 108 meq/L 98-107 djvg=195) CO2 (BEAKER) (test rwks=690) 22 meq/L 22-29 [id number] 11:22:00 Test Item Value Reference Range Comments GLUCOSE RANDOM (BEAKER) (test fcdb=757) 102 mg/dL 70-105 BUN AND [id number] 11:22:00 Test Item Value Reference Range Comments BLOOD UREA NITROGEN 55 mg/dL 7-21 (BEAKER) (test shuq=103) CREATININE (BEAKER) (test 1.29 mg/dL 0.57-1.25 Specimen slightly xejn=057) hemolyzed EGFR (BEAKER) (test 54 mL/min/1.73 sq m ESTIMATED GFR IS NOT tmdz=8995) ACCURATE CREATININE CLEARANCE IN PREDICTING GLOMERULAR FILTRATION RATE. ESTIMATED GFR IS NOT APPLICABLE FOR DIALYSIS PATIENTS. [id number] 08:56:00 Test Item Value Reference Range Comments HEMOGLOBIN (BEAKER) (test gbug=670) 15.9 GM/DL 13.7-17.5 BASIC METABOLIC [id number] 01:34:00 Test Item Value Reference Range Comments SODIUM (BEAKER) (test 141 meq/L 136-145 veck=451) POTASSIUM (BEAKER) (test 4.4 meq/L 3.5-5.1 rbrv=900) CHLORIDE (BEAKER) (test 109 meq/L 98-107 zzuy=462) CO2 (BEAKER) (test 24 meq/L 22-29 fnrd=290) BLOOD UREA NITROGEN 51 mg/dL 7-21 (BEAKER) (test xrnh=729) CREATININE (BEAKER) (test 1.12 mg/dL 0.57-1.25 mrrp=252) GLUCOSE RANDOM (BEAKER) 93 mg/dL 70-105 (test zaxx=900) CALCIUM (BEAKER) (test 8.5 mg/dL 8.4-10.2 xuzp=673) EGFR (BEAKER) (test 63 mL/min/1.73 sq m ESTIMATED GFR IS NOT iban=4230) ACCURATE CREATININE CLEARANCE IN PREDICTING GLOMERULAR FILTRATION RATE. ESTIMATED GFR IS NOT APPLICABLE FOR DIALYSIS PATIENTS. [id number] 01:32:00 Test Item Value Reference Range Comments PARTIAL THROMBOPLASTIN TIME (BEAKER) (test 69.3 seconds 22.5-36.0 ygtu=073) CBC W/PLT COUNT & AUTO [id number] 01:23:00 Test Item Value Reference Range Comments WHITE BLOOD CELL COUNT (BEAKER) (test snce=333) 4.7 K/ L 3.5-10.5 RED BLOOD CELL COUNT (BEAKER) (test fqaq=859) 5.17 M/ L 4.63-6.08 HEMOGLOBIN (BEAKER) (test rcxq=331) 13.9 GM/DL 13.7-17.5 HEMATOCRIT (BEAKER) (test ktyn=825) 43.7 % 40.1-51.0 MEAN CORPUSCULAR VOLUME (BEAKER) (test qrwp=323) 84.5 fL 79.0-92.2 MEAN CORPUSCULAR HEMOGLOBIN (BEAKER) (test 26.9 pg 25.7-32.2 fwdp=104) MEAN CORPUSCULAR HEMOGLOBIN CONC (BEAKER) (test 31.8 GM/DL 32.3-36.5 yhny=255) RED CELL DISTRIBUTION WIDTH (BEAKER) (test 15.7 % 11.6-14.4 atkx=247) PLATELET COUNT (BEAKER) (test ogkx=718) 130 K/CU MM 150-450 MEAN PLATELET VOLUME (BEAKER) (test kxvi=856) 10.9 fL 9.4-12.4 NUCLEATED RED BLOOD CELLS (BEAKER) (test 0 /100 WBC 0-0 ybon=014) NEUTROPHILS RELATIVE PERCENT (BEAKER) (test 59 % segk=629) LYMPHOCYTES RELATIVE PERCENT (BEAKER) (test 27 % hzss=383) MONOCYTES RELATIVE PERCENT (BEAKER) (test 8 % pgbn=586) EOSINOPHILS RELATIVE PERCENT (BEAKER) (test 5 % teli=676) BASOPHILS RELATIVE PERCENT (BEAKER) (test 0 % cydz=322) NEUTROPHILS ABSOLUTE COUNT (BEAKER) (test 2.73 K/ L 1.78-5.38 vovo=600) LYMPHOCYTES ABSOLUTE COUNT (BEAKER) (test 1.26 K/ L 1.32-3.57 ftsq=018) MONOCYTES ABSOLUTE COUNT (BEAKER) (test 0.37 K/ L 0.30-0.82 runo=655) EOSINOPHILS ABSOLUTE COUNT (BEAKER) (test 0.25 K/ L 0.04-0.54 nexm=111) BASOPHILS ABSOLUTE COUNT (BEAKER) (test 0.02 K/ L 0.01-0.08 erez=582) IMMATURE GRANULOCYTES-RELATIVE PERCENT (BEAKER) 0 % 0-1 (test ezev=9982) [id number] 04:46:00 Test Item Value Reference Range Comments PROTIME (BEAKER) (test qcut=160) 14.2 seconds 11.7-14.7 INR (BEAKER) (test ktik=842) 1.1 <=5.9 PARTIAL THROMBOPLASTIN TIME (BEAKER) (test 27.9 seconds 22.5-36.0 dsme=282) RECOMMENDED COUMADIN/WARFARIN INR THERAPY RANGESSTANDARD DOSE: 2.0 - 3.0 Includes: PROPHYLAXIS forvenous thrombosis, systemic embolization; TREATMENT for venous thrombosis and/or pulmonary embolus.HIGH RISK: Target INR is 2.5-3.5 for patients with mechanical heart valves.BASIC METABOLIC [id number] 02:31: 00 Test Item Value Reference Range Comments SODIUM (BEAKER) (test 140 meq/L 136-145 ssat=092) POTASSIUM (BEAKER) (test 4.7 meq/L 3.5-5.1 kfty=453) CHLORIDE (BEAKER) (test 106 meq/L 98-107 fxih=371) CO2 (BEAKER) (test 27 meq/L 22-29 ktis=003) BLOOD UREA NITROGEN 52 mg/dL 7-21 (BEAKER) (test fpvs=115) CREATININE (BEAKER) (test 1.30 mg/dL 0.57-1.25 ifzk=990) GLUCOSE RANDOM (BEAKER) 91 mg/dL 70-105 (test ueib=467) CALCIUM (BEAKER) (test 9.0 mg/dL 8.4-10.2 ndsy=965) EGFR (BEAKER) (test 53 mL/min/1.73 sq m ESTIMATED GFR IS NOT utxw=1758) ACCURATE CREATININE CLEARANCE IN PREDICTING GLOMERULAR FILTRATION RATE. ESTIMATED GFR IS NOT APPLICABLE FOR DIALYSIS PATIENTS. CBC W/PLT COUNT & AUTO [id number] 02:17:00 Test Item Value Reference Range Comments WHITE BLOOD CELL COUNT (BEAKER) (test unmg=047) 5.4 K/ L 3.5-10.5 RED BLOOD CELL COUNT (BEAKER) (test suja=166) 5.32 M/ L 4.63-6.08 HEMOGLOBIN (BEAKER) (test ymen=153) 14.6 GM/DL 13.7-17.5 HEMATOCRIT (BEAKER) (test thna=545) 45.6 % 40.1-51.0 MEAN CORPUSCULAR VOLUME (BEAKER) (test gnsw=609) 85.7 fL 79.0-92.2 MEAN CORPUSCULAR HEMOGLOBIN (BEAKER) (test 27.4 pg 25.7-32.2 ggel=815) MEAN CORPUSCULAR HEMOGLOBIN CONC (BEAKER) (test 32.0 GM/DL 32.3-36.5 hogi=930) RED CELL DISTRIBUTION WIDTH (BEAKER) (test 15.9 % 11.6-14.4 veos=120) PLATELET COUNT (BEAKER) (test qkhg=765) 140 K/CU MM 150-450 MEAN PLATELET VOLUME (BEAKER) (test hcps=049) 10.6 fL 9.4-12.4 NUCLEATED RED BLOOD CELLS (BEAKER) (test 0 /100 WBC 0-0 mldu=993) NEUTROPHILS RELATIVE PERCENT (BEAKER) (test 55 % jijt=955) LYMPHOCYTES RELATIVE PERCENT (BEAKER) (test 28 % bfnv=105) MONOCYTES RELATIVE PERCENT (BEAKER) (test 9 % ozgs=298) EOSINOPHILS RELATIVE PERCENT (BEAKER) (test 8 % ecgj=448) BASOPHILS RELATIVE PERCENT (BEAKER) (test 1 % ltmy=480) NEUTROPHILS ABSOLUTE COUNT (BEAKER) (test 2.97 K/ L 1.78-5.38 pufl=926) LYMPHOCYTES ABSOLUTE COUNT (BEAKER) (test 1.49 K/ L 1.32-3.57 ilpf=739) MONOCYTES ABSOLUTE COUNT (BEAKER) (test 0.51 K/ L 0.30-0.82 axlu=057) EOSINOPHILS ABSOLUTE COUNT (BEAKER) (test 0.41 K/ L 0.04-0.54 wckt=467) BASOPHILS ABSOLUTE COUNT (BEAKER) (test 0.03 K/ L 0.01-0.08 qrjg=447) IMMATURE GRANULOCYTES-RELATIVE PERCENT (BEAKER) 0 % 0-1 (test kswn=7039) CBC W/PLT COUNT & AUTO [id number] 07:53:00 Test Item Value Reference Range Comments WHITE BLOOD CELL COUNT (BEAKER) (test iqex=646) 5.6 K/ L 4.0-10.0 RED BLOOD CELL COUNT (BEAKER) (test tiwm=070) 4.50 M/ L 4.20-5.80 HEMOGLOBIN (BEAKER) (test xlnk=278) 13.3 GM/DL 13.0-16.8 HEMATOCRIT (BEAKER) (test eymt=591) 40.0 % 40.0-50.0 MEAN CORPUSCULAR VOLUME (BEAKER) (test esex=787) 88.8 fL 82.0-98.0 MEAN CORPUSCULAR HEMOGLOBIN (BEAKER) (test 29.6 pg 27.0-33.0 ctyt=348) MEAN CORPUSCULAR HEMOGLOBIN CONC (BEAKER) (test 33.3 GM/DL 32.0-36.0 thrq=904) RED CELL DISTRIBUTION WIDTH (BEAKER) (test 15.7 % 10.3-14.2 imfe=813) PLATELET COUNT (BEAKER) (test dgpu=018) 136 K/CU MM 150-430 MEAN PLATELET VOLUME (BEAKER) (test xchm=784) 8.2 fL 6.5-10.5 NUCLEATED RED BLOOD CELLS (BEAKER) (test 0 /100 WBC 0-0 yvuw=857) NEUTROPHILS RELATIVE PERCENT (BEAKER) (test 58 % ytvn=287) LYMPHOCYTES RELATIVE PERCENT (BEAKER) (test 21 % pvvl=716) MONOCYTES RELATIVE PERCENT (BEAKER) (test 7 % qroj=996) EOSINOPHILS RELATIVE PERCENT (BEAKER) (test 14 % kyir=073) BASOPHILS RELATIVE PERCENT (BEAKER) (test 1 % llpg=985) NEUTROPHILS ABSOLUTE COUNT (BEAKER) (test 3.28 K/ L 1.80-8.00 bapm=774) LYMPHOCYTES ABSOLUTE COUNT (BEAKER) (test 1.18 K/ L 1.48-4.50 anwf=859) MONOCYTES ABSOLUTE COUNT (BEAKER) (test 0.37 K/ L 0.00-1.30 uwlq=690) EOSINOPHILS ABSOLUTE COUNT (BEAKER) (test 0.78 K/ L 0.00-0.50 hjrr=635) BASOPHILS ABSOLUTE COUNT (BEAKER) (test 0.03 K/ L 0.00-0.20 ybil=190) 0.00B-TYPE NATRIURETIC FACTOR (BNP)2017-01-31 07:27:00 Test Item Value Reference Range Comments B-TYPE NATRIURETIC PEPTIDE (BEAKER) (test oacy=455) 46 pg/mL 0-100 [id number] 07:22:00 Test Item Value Reference Range Comments PHOSPHORUS (BEAKER) (test llsc=800) 2.8 mg/dL 2.3-4.7 [id number] 07:22:00 Test Item Value Reference Range Comments MAGNESIUM (BEAKER) (test gpkg=353) 1.9 mg/dL 1.6-2.6 BASIC METABOLIC [id number] 07:22:00 Test Item Value Reference Range Comments SODIUM (BEAKER) (test 137 meq/L 136-145 eaop=949) POTASSIUM (BEAKER) (test 4.4 meq/L 3.5-5.1 zijo=378) CHLORIDE (BEAKER) (test 111 meq/L 98-107 kfyj=502) CO2 (BEAKER) (test 20 meq/L 22-29 pcop=333) BLOOD UREA NITROGEN 60 mg/dL 7-21 (BEAKER) (test tqyu=027) CREATININE (BEAKER) (test 1.15 mg/dL 0.57-1.25 ncxl=558) GLUCOSE RANDOM (BEAKER) 83 mg/dL 70-105 (test kuat=962) CALCIUM (BEAKER) (test 8.1 mg/dL 8.4-10.2 ptkz=526) EGFR (BEAKER) (test 62 mL/min/1.73 sq m ESTIMATED GFR IS NOT oprn=6595) ACCURATE CREATININE CLEARANCE IN PREDICTING GLOMERULAR FILTRATION RATE. ESTIMATED GFR IS NOT APPLICABLE FOR DIALYSIS PATIENTS. CALCIUM, [id number] 07:05:00 Test Item Value Reference Range Comments CALCIUM IONIZED (BEAKER) (test vjsu=162) 0.90 mmol/L 1.12-1.27 PH, BLOOD (BEAKER) (test ewhm=4182) 7.42 CBC W/PLT COUNT & AUTO [id number] 08:13:00 Test Item Value Reference Range Comments WHITE BLOOD CELL COUNT (BEAKER) (test kodk=589) 6.2 K/ L 4.0-10.0 RED BLOOD CELL COUNT (BEAKER) (test kbsz=131) 4.72 M/ L 4.20-5.80 HEMOGLOBIN (BEAKER) (test mavv=276) 14.5 GM/DL 13.0-16.8 HEMATOCRIT (BEAKER) (test phsh=912) 42.1 % 40.0-50.0 MEAN CORPUSCULAR VOLUME (BEAKER) (test aejn=907) 89.1 fL 82.0-98.0 MEAN CORPUSCULAR HEMOGLOBIN (BEAKER) (test 30.7 pg 27.0-33.0 hlmf=814) MEAN CORPUSCULAR HEMOGLOBIN CONC (BEAKER) (test 34.4 GM/DL 32.0-36.0 xbfs=720) RED CELL DISTRIBUTION WIDTH (BEAKER) (test 15.7 % 10.3-14.2 ombk=021) PLATELET COUNT (BEAKER) (test tbag=405) 134 K/CU MM 150-430 MEAN PLATELET VOLUME (BEAKER) (test wkoy=333) 8.2 fL 6.5-10.5 NUCLEATED RED BLOOD CELLS (BEAKER) (test 0 /100 WBC 0-0 buql=534) NEUTROPHILS RELATIVE PERCENT (BEAKER) (test 50 % omfm=226) LYMPHOCYTES RELATIVE PERCENT (BEAKER) (test 28 % ugkz=053) MONOCYTES RELATIVE PERCENT (BEAKER) (test 6 % omxn=350) EOSINOPHILS RELATIVE PERCENT (BEAKER) (test 15 % vgim=046) BASOPHILS RELATIVE PERCENT (BEAKER) (test 0 % gmna=492) NEUTROPHILS ABSOLUTE COUNT (BEAKER) (test 3.09 K/ L 1.80-8.00 kbik=322) LYMPHOCYTES ABSOLUTE COUNT (BEAKER) (test 1.74 K/ L 1.48-4.50 jfdn=912) MONOCYTES ABSOLUTE COUNT (BEAKER) (test 0.39 K/ L 0.00-1.30 akir=337) EOSINOPHILS ABSOLUTE COUNT (BEAKER) (test 0.94 K/ L 0.00-0.50 bwkn=453) BASOPHILS ABSOLUTE COUNT (BEAKER) (test 0.02 K/ L 0.00-0.20 bcho=589) CBC (HEMOGRAM ONLY)2017-01-30 08:07:00 Test Item Value Reference Range Comments WHITE BLOOD CELL COUNT (BEAKER) (test nypa=374) 6.2 K/ L 4.0-10.0 RED BLOOD CELL COUNT (BEAKER) (test nqew=645) 4.72 M/ L 4.20-5.80 HEMOGLOBIN (BEAKER) (test maik=222) 14.5 GM/DL 13.0-16.8 HEMATOCRIT (BEAKER) (test igxp=503) 42.1 % 40.0-50.0 MEAN CORPUSCULAR VOLUME (BEAKER) (test qlsl=748) 89.1 fL 82.0-98.0 MEAN CORPUSCULAR HEMOGLOBIN (BEAKER) (test 30.7 pg 27.0-33.0 unja=085) MEAN CORPUSCULAR HEMOGLOBIN CONC (BEAKER) (test 34.4 GM/DL 32.0-36.0 juoy=722) RED CELL DISTRIBUTION WIDTH (BEAKER) (test 15.7 % 10.3-14.2 dtvn=581) PLATELET COUNT (BEAKER) (test eren=619) 134 K/CU MM 150-430 MEAN PLATELET VOLUME (BEAKER) (test przz=795) 8.2 fL 6.5-10.5 NUCLEATED RED BLOOD CELLS (BEAKER) (test 0 /100 WBC 0-0 xttz=349) 0.00BASIC METABOLIC [id number] 06:38:00 Test Item Value Reference Range Comments SODIUM (BEAKER) (test 134 meq/L 136-145 qkab=524) POTASSIUM (BEAKER) (test 4.8 meq/L 3.5-5.1 okxd=197) CHLORIDE (BEAKER) (test 108 meq/L 98-107 vjgv=670) CO2 (BEAKER) (test 19 meq/L 22-29 vdch=517) BLOOD UREA NITROGEN 70 mg/dL 7-21 (BEAKER) (test mhfs=399) CREATININE (BEAKER) (test 1.52 mg/dL 0.57-1.25 hvoz=820) GLUCOSE RANDOM (BEAKER) 87 mg/dL 70-105 (test yuwp=234) CALCIUM (BEAKER) (test 8.3 mg/dL 8.4-10.2 oebr=597) EGFR (BEAKER) (test 45 mL/min/1.73 sq m ESTIMATED GFR IS NOT vnfk=8420) ACCURATE CREATININE CLEARANCE IN PREDICTING GLOMERULAR FILTRATION RATE. ESTIMATED GFR IS NOT APPLICABLE FOR DIALYSIS PATIENTS. CREATINE KINASE (CK)2017-01-30 06:38:00 Test Item Value Reference Range Comments CREATINE KINASE TOTAL (BEAKER) (test mwcd=163) 65 U/L 29-200 [id number] 06:37:00 Test Item Value Reference Range Comments PHOSPHORUS (BEAKER) (test vwqr=402) 3.8 mg/dL 2.3-4.7 [id number] 06:37:00 Test Item Value Reference Range Comments MAGNESIUM (BEAKER) (test lmjn=186) 2.1 mg/dL 1.6-2.6 B-TYPE NATRIURETIC FACTOR (BNP)2017-01-30 06:28:00 Test Item Value Reference Range Comments B-TYPE NATRIURETIC PEPTIDE (BEAKER) (test xndf=269) 36 pg/mL 0-100 [id number] 06:16:00 Test Item Value Reference Range Comments PARTIAL THROMBOPLASTIN TIME (BEAKER) (test 152.1 seconds 22.5-36.0 ttdm=916) CALCIUM, [id number] 06:12:00 Test Item Value Reference Range Comments CALCIUM IONIZED (BEAKER) (test srhh=852) 1.09 mmol/L 1.12-1.27 PH, BLOOD (BEAKER) (test cayp=4800) 7.25 [id number] 23:50:00 Test Item Value Reference Range Comments PARTIAL THROMBOPLASTIN TIME (BEAKER) (test 87.0 seconds 22.5-36.0 rymd=715) [id number] 15:04:00 Test Item Value Reference Range Comments PARTIAL THROMBOPLASTIN TIME (BEAKER) (test 43.2 seconds 22.5-36.0 oixm=980) [id number] 12:41:00 Test Item Value Reference Range Comments PARTIAL THROMBOPLASTIN TIME (BEAKER) (test 192.4 seconds 22.5-36.0 fktg=742) Prior to initiating heparinPLATELET [id number] 12:21:00 Test Item Value Reference Range Comments PLATELET COUNT (BEAKER) (test iqka=041) 155 K/CU MM 150-430 BASIC METABOLIC [id number] 09:42:00 Test Item Value Reference Range Comments SODIUM (BEAKER) (test 132 meq/L 136-145 bxea=684) POTASSIUM (BEAKER) (test 4.8 meq/L 3.5-5.1 dlcz=282) CHLORIDE (BEAKER) (test 106 meq/L 98-107 nbqj=385) CO2 (BEAKER) (test 19 meq/L 22-29 vfga=476) BLOOD UREA NITROGEN 65 mg/dL 7-21 (BEAKER) (test hvnf=762) CREATININE (BEAKER) (test 1.29 mg/dL 0.57-1.25 lzph=797) GLUCOSE RANDOM (BEAKER) 88 mg/dL 70-105 (test mxri=756) CALCIUM (BEAKER) (test 8.9 mg/dL 8.4-10.2 txow=396) EGFR (BEAKER) (test 54 mL/min/1.73 sq m ESTIMATED GFR IS NOT oxxz=5689) ACCURATE CREATININE CLEARANCE IN PREDICTING GLOMERULAR FILTRATION RATE. ESTIMATED GFR IS NOT APPLICABLE FOR DIALYSIS PATIENTS. [id number] 09:30:00 Test Item Value Reference Range Comments PROTIME (BEAKER) (test cyvc=963) 15.0 seconds 11.7-14.7 INR (BEAKER) (test rywv=147) 1.2 <=5.9 PARTIAL THROMBOPLASTIN TIME (BEAKER) (test 29.6 seconds 22.5-36.0 snrl=115) RECOMMENDED COUMADIN/WARFARIN INR THERAPY RANGESSTANDARD DOSE: 2.0 - 3.0 Includes: PROPHYLAXIS forvenous thrombosis, systemic embolization; TREATMENT for venous thrombosis and/or pulmonary embolus.HIGH RISK: Target INR is 2.5-3.5 for patients with mechanical heart valves.CBC W/PLT COUNT & AUTO [id number] 09:26:00 Test Item Value Reference Range Comments WHITE BLOOD CELL COUNT (BEAKER) (test mfxk=147) 6.0 K/ L 4.0-10.0 RED BLOOD CELL COUNT (BEAKER) (test xkxl=503) 4.83 M/ L 4.20-5.80 HEMOGLOBIN (BEAKER) (test fjdf=472) 14.3 GM/DL 13.0-16.8 HEMATOCRIT (BEAKER) (test ibbz=356) 42.2 % 40.0-50.0 MEAN CORPUSCULAR VOLUME (BEAKER) (test ydnz=050) 87.5 fL 82.0-98.0 MEAN CORPUSCULAR HEMOGLOBIN (BEAKER) (test 29.7 pg 27.0-33.0 geci=474) MEAN CORPUSCULAR HEMOGLOBIN CONC (BEAKER) (test 33.9 GM/DL 32.0-36.0 sppa=935) RED CELL DISTRIBUTION WIDTH (BEAKER) (test 15.9 % 10.3-14.2 qvha=848) PLATELET COUNT (BEAKER) (test xbqh=895) 141 K/CU MM 150-430 MEAN PLATELET VOLUME (BEAKER) (test jegg=681) 8.0 fL 6.5-10.5 NUCLEATED RED BLOOD CELLS (BEAKER) (test 0 /100 WBC 0-0 psbw=429) NEUTROPHILS RELATIVE PERCENT (BEAKER) (test 57 % pyse=741) LYMPHOCYTES RELATIVE PERCENT (BEAKER) (test 20 % fvcz=156) MONOCYTES RELATIVE PERCENT (BEAKER) (test 6 % peab=335) EOSINOPHILS RELATIVE PERCENT (BEAKER) (test 17 % tbti=644) BASOPHILS RELATIVE PERCENT (BEAKER) (test 0 % eclu=029) NEUTROPHILS ABSOLUTE COUNT (BEAKER) (test 3.40 K/ L 1.80-8.00 jomk=656) LYMPHOCYTES ABSOLUTE COUNT (BEAKER) (test 1.21 K/ L 1.48-4.50 irhs=292) MONOCYTES ABSOLUTE COUNT (BEAKER) (test 0.37 K/ L 0.00-1.30 wqwh=366) EOSINOPHILS ABSOLUTE COUNT (BEAKER) (test 1.01 K/ L 0.00-0.50 hmnz=555) BASOPHILS ABSOLUTE COUNT (BEAKER) (test 0.02 K/ L 0.00-0.20 pmit=934) [id number] 18:10:00 Test Item Value Reference Range Comments ACTIVATED CLOTTING TIME 202 sec TESTED AT [facility] [address] (BEAKER) (test vbxj=904) [facility] [address] BLOOD [id number] 00:00:00 Test Item Value Reference Range Comments CULTURE (BEAKER) (test nsme=1844) No growth in 5 days URINE [id number] 11:38:00 Test Item Value Reference Range Comments CULTURE (BEAKER) (test ijzd=2349) No growth [id number] 07:05:00 Test Item Value Reference Range Comments PHOSPHORUS (BEAKER) (test qyqn=027) 3.2 mg/dL 2.3-4.7 [id number] 07:05:00 Test Item Value Reference Range Comments MAGNESIUM (BEAKER) (test ygtn=135) 2.3 mg/dL 1.6-2.6 COMPREHENSIVE METABOLIC [id number] 07:05:00 Test Item Value Reference Range Comments TOTAL PROTEIN (BEAKER) 6.2 gm/dL 6.0-8.3 (test gpbi=633) ALBUMIN (BEAKER) (test 3.6 g/dL 3.5-5.0 iies=3767) ALKALINE PHOSPHATASE 83 U/L 40-150 (BEAKER) (test htlq=951) BILIRUBIN TOTAL (BEAKER) 0.5 mg/dL 0.2-1.2 (test lhfh=237) SODIUM (BEAKER) (test 135 meq/L 136-145 zkqb=442) POTASSIUM (BEAKER) (test 4.2 meq/L 3.5-5.1 cive=713) CHLORIDE (BEAKER) (test 107 meq/L 98-107 xvlr=370) CO2 (BEAKER) (test 20 meq/L 22-29 ymyc=484) BLOOD UREA NITROGEN 81 mg/dL 7-21 (BEAKER) (test xjsc=817) CREATININE (BEAKER) (test 1.31 mg/dL 0.57-1.25 tqoq=157) GLUCOSE RANDOM (BEAKER) 85 mg/dL 70-105 (test rmmp=982) CALCIUM (BEAKER) (test 8.3 mg/dL 8.4-10.2 tjrc=407) AST (SGOT) (BEAKER) (test 28 U/L 5-34 zbte=390) ALT (SGPT) (BEAKER) (test 58 U/L 6-55 pdiu=695) EGFR (BEAKER) (test 53 mL/min/1.73 sq m ESTIMATED GFR IS NOT dxft=5216) ACCURATE CREATININE CLEARANCE IN PREDICTING GLOMERULAR FILTRATION RATE. ESTIMATED GFR IS NOT APPLICABLE FOR DIALYSIS PATIENTS. CALCIUM, [id number] 06:43:00 Test Item Value Reference Range Comments CALCIUM IONIZED (BEAKER) (test wcfh=165) 1.08 mmol/L 1.12-1.27 PH, BLOOD (BEAKER) (test fjje=9456) 7.35 CBC W/PLT COUNT & AUTO [id number] 06:36:00 Test Item Value Reference Range Comments WHITE BLOOD CELL COUNT (BEAKER) (test ipnr=493) 4.6 K/ L 4.0-10.0 RED BLOOD CELL COUNT (BEAKER) (test nriv=773) 4.96 M/ L 4.20-5.80 HEMOGLOBIN (BEAKER) (test kzov=938) 14.3 GM/DL 13.0-16.8 HEMATOCRIT (BEAKER) (test nffy=510) 43.6 % 40.0-50.0 MEAN CORPUSCULAR VOLUME (BEAKER) (test rqpe=234) 87.9 fL 82.0-98.0 MEAN CORPUSCULAR HEMOGLOBIN (BEAKER) (test 28.8 pg 27.0-33.0 jkpk=194) MEAN CORPUSCULAR HEMOGLOBIN CONC (BEAKER) (test 32.7 GM/DL 32.0-36.0 ocqx=764) RED CELL DISTRIBUTION WIDTH (BEAKER) (test 14.7 % 10.3-14.2 qlnk=456) PLATELET COUNT (BEAKER) (test owvb=005) 148 K/CU MM 150-430 MEAN PLATELET VOLUME (BEAKER) (test dmai=220) 7.7 fL 6.5-10.5 NUCLEATED RED BLOOD CELLS (BEAKER) (test 0 /100 WBC 0-0 rxos=245) NEUTROPHILS RELATIVE PERCENT (BEAKER) (test 53 % wesq=012) LYMPHOCYTES RELATIVE PERCENT (BEAKER) (test 32 % cyha=966) MONOCYTES RELATIVE PERCENT (BEAKER) (test 8 % ykve=741) EOSINOPHILS RELATIVE PERCENT (BEAKER) (test 7 % dsat=889) BASOPHILS RELATIVE PERCENT (BEAKER) (test 1 % wtmb=445) NEUTROPHILS ABSOLUTE COUNT (BEAKER) (test 2.43 K/ L 1.80-8.00 vvhd=808) LYMPHOCYTES ABSOLUTE COUNT (BEAKER) (test 1.46 K/ L 1.48-4.50 yake=298) MONOCYTES ABSOLUTE COUNT (BEAKER) (test 0.36 K/ L 0.00-1.30 rvpv=637) EOSINOPHILS ABSOLUTE COUNT (BEAKER) (test 0.31 K/ L 0.00-0.50 fxep=191) BASOPHILS ABSOLUTE COUNT (BEAKER) (test 0.03 K/ L 0.00-0.20 eidb=395) [id number] 05:54:00 Test Item Value Reference Range Comments PHOSPHORUS (BEAKER) (test gzuq=016) 3.8 mg/dL 2.3-4.7 [id number] 05:54:00 Test Item Value Reference Range Comments MAGNESIUM (BEAKER) (test tfaw=539) 2.5 mg/dL 1.6-2.6 BASIC METABOLIC [id number] 05:54:00 Test Item Value Reference Range Comments SODIUM (BEAKER) (test 132 meq/L 136-145 grvy=588) POTASSIUM (BEAKER) (test 4.6 meq/L 3.5-5.1 cnyj=101) CHLORIDE (BEAKER) (test 106 meq/L 98-107 klba=037) CO2 (BEAKER) (test 18 meq/L 22-29 suyr=175) BLOOD UREA NITROGEN 89 mg/dL 7-21 (BEAKER) (test ismk=600) CREATININE (BEAKER) (test 1.34 mg/dL 0.57-1.25 bndo=764) GLUCOSE RANDOM (BEAKER) 98 mg/dL 70-105 (test wdrb=297) CALCIUM (BEAKER) (test 8.3 mg/dL 8.4-10.2 myce=771) EGFR (BEAKER) (test 52 mL/min/1.73 sq m ESTIMATED GFR IS NOT hjtl=5528) ACCURATE CREATININE CLEARANCE IN PREDICTING GLOMERULAR FILTRATION RATE. ESTIMATED GFR IS NOT APPLICABLE FOR DIALYSIS PATIENTS. CREATINE KINASE (CK)2017-01-17 05:54:00 Test Item Value Reference Range Comments CREATINE KINASE TOTAL (BEAKER) (test psng=381) 89 U/L 29-200 CALCIUM, [id number] 05:29:00 Test Item Value Reference Range Comments CALCIUM IONIZED (BEAKER) (test uqvz=982) 1.02 mmol/L 1.12-1.27 PH, BLOOD (BEAKER) (test txpf=9683) 7.33 EOSINOPHIL SMEAR, [id number] 16:25:00 Test Item Value Reference Range Comments EOSINOPHIL SMEAR, URINE (BEAKER) Rare EOS=less than 5% WBCs No EOS seen (test clxc=6941) seen are EOS BASIC METABOLIC [id number] 16:09:00 Test Item Value Reference Range Comments SODIUM (BEAKER) (test 132 meq/L 136-145 wgfn=525) POTASSIUM (BEAKER) (test 5.2 meq/L 3.5-5.1 dztx=534) CHLORIDE (BEAKER) (test 104 meq/L 98-107 wkik=536) CO2 (BEAKER) (test 19 meq/L 22-29 vrmg=781) BLOOD UREA NITROGEN 90 mg/dL 7-21 (BEAKER) (test svzn=756) CREATININE (BEAKER) (test 1.56 mg/dL 0.57-1.25 ovla=076) GLUCOSE RANDOM (BEAKER) 136 mg/dL 70-105 (test upph=796) CALCIUM (BEAKER) (test 9.0 mg/dL 8.4-10.2 fdrx=323) EGFR (BEAKER) (test 43 mL/min/1.73 sq m ESTIMATED GFR IS NOT qvuy=4798) ACCURATE CREATININE CLEARANCE IN PREDICTING GLOMERULAR FILTRATION RATE. ESTIMATED GFR IS NOT APPLICABLE FOR DIALYSIS PATIENTS. OSMOLALITY, [id number] 13:18:00 Test Item Value Reference Range Comments OSMOLALITY URINE (BEAKER) (test yrca=677) 379 mOsm/kg 40-1400 HEMOGLOBIN [id number] 09:05:00 Test Item Value Reference Range Comments HEMOGLOBIN A1C (BEAKER) (test etbs=075) 5.8 % 4.3-6.1 CBC W/PLT COUNT & AUTO [id number] 07:12:00 Test Item Value Reference Range Comments WHITE BLOOD CELL COUNT (BEAKER) (test qryu=133) 6.4 K/ L 4.0-10.0 RED BLOOD CELL COUNT (BEAKER) (test bouw=844) 5.33 M/ L 4.20-5.80 HEMOGLOBIN (BEAKER) (test lqbj=422) 15.4 GM/DL 13.0-16.8 HEMATOCRIT (BEAKER) (test nvpi=334) 47.1 % 40.0-50.0 MEAN CORPUSCULAR VOLUME (BEAKER) (test skmm=252) 88.5 fL 82.0-98.0 MEAN CORPUSCULAR HEMOGLOBIN (BEAKER) (test 29.0 pg 27.0-33.0 msaf=768) MEAN CORPUSCULAR HEMOGLOBIN CONC (BEAKER) (test 32.8 GM/DL 32.0-36.0 iuix=789) RED CELL DISTRIBUTION WIDTH (BEAKER) (test 15.0 % 10.3-14.2 vnkg=416) PLATELET COUNT (BEAKER) (test ppdq=761) 157 K/CU MM 150-430 MEAN PLATELET VOLUME (BEAKER) (test laap=274) 8.0 fL 6.5-10.5 NUCLEATED RED BLOOD CELLS (BEAKER) (test 0 /100 WBC 0-0 cdat=619) NEUTROPHILS RELATIVE PERCENT (BEAKER) (test 59 % frpl=265) LYMPHOCYTES RELATIVE PERCENT (BEAKER) (test 27 % xzpf=525) MONOCYTES RELATIVE PERCENT (BEAKER) (test 8 % wmwm=972) EOSINOPHILS RELATIVE PERCENT (BEAKER) (test 5 % pkor=142) BASOPHILS RELATIVE PERCENT (BEAKER) (test 1 % szww=432) NEUTROPHILS ABSOLUTE COUNT (BEAKER) (test 3.79 K/ L 1.80-8.00 xdzk=533) LYMPHOCYTES ABSOLUTE COUNT (BEAKER) (test 1.71 K/ L 1.48-4.50 xsqu=377) MONOCYTES ABSOLUTE COUNT (BEAKER) (test 0.54 K/ L 0.00-1.30 sqvw=950) EOSINOPHILS ABSOLUTE COUNT (BEAKER) (test 0.31 K/ L 0.00-0.50 zumh=701) BASOPHILS ABSOLUTE COUNT (BEAKER) (test 0.06 K/ L 0.00-0.20 seed=126) 0.00BASIC METABOLIC [id number] 06:43:00 Test Item Value Reference Range Comments SODIUM (BEAKER) (test 132 meq/L 136-145 vrew=185) POTASSIUM (BEAKER) (test 5.2 meq/L 3.5-5.1 Specimen slightly dhbv=012) hemolyzed CHLORIDE (BEAKER) (test 107 meq/L 98-107 nenl=093) CO2 (BEAKER) (test 16 meq/L 22-29 erkn=693) BLOOD UREA NITROGEN 90 mg/dL 7-21 (BEAKER) (test aboh=058) CREATININE (BEAKER) (test 1.45 mg/dL 0.57-1.25 Specimen slightly judz=034) hemolyzed GLUCOSE RANDOM (BEAKER) 78 mg/dL 70-105 (test kcmr=904) CALCIUM (BEAKER) (test 8.7 mg/dL 8.4-10.2 rkkf=469) EGFR (BEAKER) (test 47 mL/min/1.73 sq m ESTIMATED GFR IS NOT jjkd=7338) ACCURATE CREATININE CLEARANCE IN PREDICTING GLOMERULAR FILTRATION RATE. ESTIMATED GFR IS NOT APPLICABLE FOR DIALYSIS PATIENTS. URINALYSIS W/ [id number] 03:12:00 Test Item Value Reference Range Comments COLOR (BEAKER) (test mhvj=356) Light Yellow CLARITY (BEAKER) (test mbhn=872) Clear SPECIFIC GRAVITY UA (BEAKER) (test knkx=375) 1.009 1.001-1.035 PH UA (BEAKER) (test sogz=565) 6.5 5.0-8.0 PROTEIN UA (BEAKER) (test dtga=494) Negative Negative GLUCOSE UA (BEAKER) (test ygvn=809) Negative Negative KETONES UA (BEAKER) (test ywtd=575) Negative Negative BILIRUBIN UA (BEAKER) (test wmoe=317) Negative Negative BLOOD UA (BEAKER) (test ejct=365) Small Negative NITRITE UA (BEAKER) (test azvy=602) Negative Negative LEUKOCYTE ESTERASE UA (BEAKER) (test glxk=112) Negative Negative UROBILINOGEN UA (BEAKER) (test nczb=928) 0.2 mg/dL 0.2-1.0 RBC UA (BEAKER) (test ptfa=907) 28 /HPF WBC UA (BEAKER) (test smnt=642) 54 /HPF MUCUS (BEAKER) (test sfdx=9109) Rare SOURCE(BEAKER) (test jvsy=5707) Urine, Voided CHLORIDE, RANDOM [id number] 01:29:00 Test Item Value Reference Range Comments CHLORIDE URINE (BEAKER) (test zksr=622) 62 meq/L Reference Range: No NormalsCREATININE, RANDOM [id number] 01:29:00 Test Item Value Reference Range Comments CREATININE URINE (BEAKER) (test mklx=564) 49.9 mg/dL Reference Range: No NormalsPOTASSIUM, RANDOM [id number] 01:29:00 Test Item Value Reference Range Comments POTASSIUM URINE (BEAKER) (test irxf=717) 18.3 meq/L Reference Range: No NormalsSODIUM, RANDOM [id number] 01:29:00 Test Item Value Reference Range Comments SODIUM URINE (BEAKER) (test nnqw=541) 73 meq/L Reference Range: No NormalsSEDIMENTATION [id number] 21:30:00 Test Item Value Reference Range Comments SEDIMENTATION RATE, ERYTHROCYTE (BEAKER) (test 10 mm/HR 0-40 marz=870) C-REACTIVE [id number] 20:44:00 Test Item Value Reference Range Comments C-REACTIVE PROTEIN (BEAKER) (test gcpk=800) 0.11 mg/dL 0.00-0.50 BASIC METABOLIC [id number] 15:53:00 Test Item Value Reference Range Comments SODIUM (BEAKER) (test 130 meq/L 136-145 yylk=517) POTASSIUM (BEAKER) (test 4.9 meq/L 3.5-5.1 Specimen slightly rmbq=762) hemolyzed CHLORIDE (BEAKER) (test 106 meq/L 98-107 bsea=364) CO2 (BEAKER) (test 14 meq/L 22-29 xxmh=174) BLOOD UREA NITROGEN 84 mg/dL 7-21 (BEAKER) (test hfcw=479) CREATININE (BEAKER) (test 1.65 mg/dL 0.57-1.25 Specimen slightly wbkj=893) hemolyzed GLUCOSE RANDOM (BEAKER) 102 mg/dL 70-105 (test fgaf=046) CALCIUM (BEAKER) (test 9.0 mg/dL 8.4-10.2 dfgj=263) EGFR (BEAKER) (test 41 mL/min/1.73 sq m ESTIMATED GFR IS NOT ojhm=9614) ACCURATE CREATININE CLEARANCE IN PREDICTING GLOMERULAR FILTRATION RATE. ESTIMATED GFR IS NOT APPLICABLE FOR DIALYSIS PATIENTS. CBC W/PLT COUNT & AUTO [id number] 15:45:00 Test Item Value Reference Range Comments WHITE BLOOD CELL COUNT (BEAKER) (test nccp=521) 6.1 K/ L 4.0-10.0 RED BLOOD CELL COUNT (BEAKER) (test kjiu=941) 5.20 M/ L 4.20-5.80 HEMOGLOBIN (BEAKER) (test ssxt=671) 15.0 GM/DL 13.0-16.8 HEMATOCRIT (BEAKER) (test uyrk=511) 45.4 % 40.0-50.0 MEAN CORPUSCULAR VOLUME (BEAKER) (test ppzy=046) 87.3 fL 82.0-98.0 MEAN CORPUSCULAR HEMOGLOBIN (BEAKER) (test 28.8 pg 27.0-33.0 stgb=960) MEAN CORPUSCULAR HEMOGLOBIN CONC (BEAKER) (test 33.0 GM/DL 32.0-36.0 jlyq=745) RED CELL DISTRIBUTION WIDTH (BEAKER) (test 16.4 % 10.3-14.2 epkk=762) PLATELET COUNT (BEAKER) (test mfzr=392) 165 K/CU MM 150-430 MEAN PLATELET VOLUME (BEAKER) (test mezu=230) 8.4 fL 6.5-10.5 NUCLEATED RED BLOOD CELLS (BEAKER) (test 0 /100 WBC 0-0 xcxt=384) NEUTROPHILS RELATIVE PERCENT (BEAKER) (test 61 % kkjm=687) LYMPHOCYTES RELATIVE PERCENT (BEAKER) (test 27 % nqqi=225) MONOCYTES RELATIVE PERCENT (BEAKER) (test 7 % lugy=369) EOSINOPHILS RELATIVE PERCENT (BEAKER) (test 5 % fxvj=239) BASOPHILS RELATIVE PERCENT (BEAKER) (test 0 % twse=301) NEUTROPHILS ABSOLUTE COUNT (BEAKER) (test 3.77 K/ L 1.80-8.00 qlvt=785) LYMPHOCYTES ABSOLUTE COUNT (BEAKER) (test 1.63 K/ L 1.48-4.50 imtz=206) MONOCYTES ABSOLUTE COUNT (BEAKER) (test 0.42 K/ L 0.00-1.30 pwad=164) EOSINOPHILS ABSOLUTE COUNT (BEAKER) (test 0.29 K/ L 0.00-0.50 zhkk=522) BASOPHILS ABSOLUTE COUNT (BEAKER) (test 0.02 K/ L 0.00-0.20 rsfg=547) 0.00
[2019-01-16 21:04] LABS: Absolute Lymphocytes (CBC) 1.1 K/uL (0.7-4.9); Eosinophils % 4.3 % (0-4.4); Hematocrit 42.9 % (39.6-49.0); MPV 8.2 fL (7.6-11.3); Monocytes % 7.5 % (3.3-12.3); RBC Red Blood Cell Count 4.92 M/uL (4.33-5.43)
[2019-01-16 21:11] LABS: Albumin 3.2 g/dL (3.4-5.0); Bilirubin Direct 0.1 mg/dL (0-0.2); Bilirubin Total 0.4 mg/dL (0.2-1.0); Magnesium 2.1 mg/dL (1.8-2.4); Potassium 3.9 mmol/L (3.5-5.1); Protein, Total 6.5 g/dL (6.4-8.2); Troponin (Emerg Dept Use Only) 0.05 ng/mL (0.0-0.045)
[2019-01-16] MEDS ORDERED: NA CHLORIDE 0.9% 1,000 ML ONE ×2 (21:38→23:33)
[2019-01-16 21:41] LABS: Protime INR 0.99
[2019-01-16] MEDS ORDERED: PROMETHAZINE 25 MG/ML VIAL ONE (23:33)
--- NOTE | 2019-01-17 01:58 | EDPHYS ---
Physician Documentation [facility] Name: Lisandro Livingston Age: 78 yrs Sex: Male : 1940 Arrival Date: 01/16/2019 Time: 19:28 Bed 25 Private MD: Hamzah Leblanc ED Physician Rodolfo Vaz HPI: 01/16 20:48 This 78 yrs old Male presents to ER via Ambulatory with complaints of Pain All pm1 Over, Headache and leg pain. 20:48 The patient complains of pain to the forehead. The patient describes the headache as pm1 aching. Onset: The symptoms/episode began/occurred 2 week(s) ago. Associated signs and symptoms: Pertinent positives: bilateral thigh pain with walking. Severity of symptoms: in the emergency department the pain is unchanged. The patient has been recently seen at the [facility] Emergency Department, Patient presents with the same complaints of headache, generalized pain all over 3 days ago. Historical: - Allergies: 20:01 NKDA; aj1 - Home Meds: 20:01 amlodipine 2.5 mg tab 1 tab once daily [Active]; atorvastatin 40 mg Oral tab 1 tab once aj1 daily [Active]; citalopram 10 mg tab 1 tab once daily [Active]; Pt is not compliant with medications [Active]; Sodium Bicarbonate 10GR tab RIS Oral 3 tabs three times a day [Active]; tamsulosin 0.4 mg Oral cp24 1 cap once daily [Active]; - PMHx: 20:01 Bladder cancer; Cancer; Hypertension; aj1 - Immunization history:: Flu vaccine is up to date. - Social history:: Smoking status: Patient/guardian denies using tobacco. - Ebola Screening: : Patient denies travel to an Ebola-affected area in the 21 days before illness onset. ROS: 20:48 Eyes: Negative for injury, pain, redness, and discharge, ENT: Negative for injury, pm1 pain, and discharge, Neck: Negative for injury, pain, and swelling, Cardiovascular: Negative for chest pain, palpitations, and edema, Respiratory: Negative for shortness of breath, cough, wheezing, and pleuritic chest pain, Abdomen/GI: Negative for abdominal pain, nausea, vomiting, diarrhea, and constipation. 20:48 : Negative for injury, bleeding, discharge, and swelling, MS/Extremity: Negative for injury and deformity, Skin: Negative for injury, rash, and discoloration. 20:48 Constitutional: Positive for body aches, Negative for poor PO intake. 20:48 Neuro: Positive for headache. Exam: 20:48 Constitutional: This is a well developed, well nourished patient who is awake, alert, pm1 and in no acute distress. Head/Face: Normocephalic, atraumatic. Eyes: Pupils equal round and reactive to light, extra-ocular motions intact. Lids and lashes normal. Conjunctiva and sclera are non-icteric and not injected. Cornea within normal limits. Periorbital areas with no swelling, redness, or edema. ENT: Nares patent. No nasal discharge, no septal abnormalities noted. Tympanic membranes are normal and external auditory canals are clear. Oropharynx with no redness, swelling, or masses, exudates, or evidence of obstruction, uvula midline. Mucous membranes moist. Neck: Trachea midline, no thyromegaly or masses palpated, and no cervical lymphadenopathy. Supple, full range of motion without nuchal rigidity, or vertebral point tenderness. No Meningismus. Chest/axilla: Normal chest wall appearance and motion. Nontender with no deformity. No lesions are appreciated. Cardiovascular: Regular rate and rhythm with a normal S1 and S2. No gallops, murmurs, or rubs. Normal PMI, no JVD. No pulse deficits. Respiratory: Lungs have equal breath sounds bilaterally, clear to auscultation and percussion. No rales, rhonchi or wheezes noted. No increased work of breathing, no retractions or nasal flaring. Abdomen/GI: Soft, non-tender, with normal bowel sounds. No distension or tympany. No guarding or rebound. No evidence of tenderness throughout. Back: No spinal tenderness. No costovertebral tenderness. Full range of motion. Skin: Warm, dry with normal turgor. Normal color with no rashes, no lesions, and no evidence of cellulitis. MS/ Extremity: Pulses equal, no cyanosis. Neurovascular intact. Full, normal range of motion. 20:48 Neuro: Orientation: to person, place, time, Motor: is normal, moves all fours, Sensation: is normal, no obvious gross deficits. Vital Signs: 19:55 Pulse 65; Resp 18; Temp 97.8; Pulse Ox 99% on R/A; mg2 19:55 BP 121 / 65; mg2 21:18 BP 117 / 51; Pulse 59; Resp 18; Pulse Ox 98% on R/A; mg2 22:31 BP 119 / 56; Pulse 57; Resp 17; Pulse Ox 99% on R/A; mg2 23:47 BP 109 / 58; Pulse 54; Resp 18; Pulse Ox 96% on R/A; mg2 07 00:47 BP 115 / 55; Pulse 52; Resp 18; Pulse Ox 98% on R/A; mg2 01:21 BP 116 / 57; Pulse 82; Resp 16; Pulse Ox 100% on R/A; la1 02:06 BP 121 / 67; Pulse 71; Resp 16; Pulse Ox 99% on R/A; la1 MDM: 01/16 20:16 Patient medically screened. pm1 01/17 01:35 Data reviewed: vital signs. Data interpreted: Pulse oximetry: on room air is 100 %. pm1 Interpretation: normal. 01:50 Physician consultation: Denia Restrepo MD was contacted at 01:50, regarding admission, pm1 patient's condition, in the emergency department to see patient at 01:50, Patient evaluated by Dr Arevalo and patient without any chest pain equivalents and symptoms ongoing for 2 weeks. Patient does not meet criteria for admission. Patient with renal mass on CT and instructed to follow up with specialist to evaluate for cancer. 01:55 Counseling: I had a detailed discussion with the patient and/or guardian regarding: the pm1 historical points, exam findings, and any diagnostic results supporting the discharge/admit diagnosis, lab results, radiology results, the need for outpatient follow up, to return to the emergency department if symptoms worsen or persist or if there are any questions or concerns that arise at home. 01/16 20:26 Order name: Basic Metabolic Panel; Complete Time: 21:18 pm1 01/16 20:26 Order name: CBC with Diff; Complete Time: 21:18 pm1 01/16 20:26 Order name: LFT's; Complete Time: 21:18 pm1 01/16 20:26 Order name: Magnesium; Complete Time: 21:18 pm1 01/16 20:26 Order name: Troponin (emerg Dept Use Only); Complete Time: 21:18 pm1 01/16 20:26 Order name: EKG; Complete Time: 20:51 pm01/16 20:26 Order name: EKG - Nurse/Tech; Complete Time: 20:47 pm01/16 20:26 Order name: IV Saline Lock; Complete Time: 20:47 pm01/16 21:21 Order name: CT Aorta for Dissection 01/16 21:21 Order name: PT-INR; Complete Time: 22:20 pm01/16 21:21 Order name: XRAY Chest (1 view) pm01/17 00:53 Order name: Troponin (emerg Dept Use Only); Complete Time: 01:38 mg2 01/16 20:26 Order name: Labs collected and sent; Complete Time: 20:47 pm01/16 21:21 Order name: Cardiac monitoring; Complete Time: 21:22 pm01/16 21:21 Order name: O2 Per Protocol; Complete Time: 21:22 pm01/16 21:21 Order name: O2 Sat Monitoring; Complete Time: 21:22 pm1 Administered Medications: 01/16 21:28 Drug: NS 0.9% 1000 ml Route: IV; Rate: 1000 ml; Site: left antecubital; mg2 01/17 00:59 Follow up: Response: No adverse reaction; IV Status: Completed infusion; IV Intake: mg2 1000ml 02:24 Follow up: IV Status: Completed infusion la1 Disposition: 01/17/19 01:57 Discharged to Home. Impression: Right renal mass. - Condition is Stable. - Discharge Instructions: Renal Mass. - Medication Reconciliation Form, Thank You Letter, Antibiotic Education, Prescription Opioid Use form. - Follow up: Emergency Department; When: As needed; Reason: Worsening of condition. Follow up: Private Physician; When: 2 - 3 days; Reason: Recheck today's complaints, Continuance of care, Re-evaluation by your physician. - Problem is new. - Symptoms have improved. Signatures: Dispatcher [employer] EDMS Gilda Landers RN RN aj1 Srinath Chinchilla RN RN la1 Michael Erwin, [employer]RARIAN pm1 Yonathan Martinez RN RN mg2 Corrections: (The following items were deleted from the chart) 02:24 01:57 01/17/2019 01:57 Discharged to Home. Impression: Right renal mass. Condition is la1 Stable. Forms are Medication Reconciliation Form, Thank You Letter, Antibiotic Education, Prescription Opioid Use. Follow up: Emergency Department; When: As needed; Reason: Worsening of condition. Follow up: Private Physician; When: 2 - 3 days; Reason: Recheck today's complaints, Continuance of care, Re-evaluation by your physician. Problem is new. Symptoms have improved. pm1
--- NOTE | 2019-01-17 01:58 | ER ---
Nurse's Notes [facility] Name: Lisandro Livingston Age: 78 yrs Sex: Male : 1940 Arrival Date: 01/16/2019 Time: 19:28 Bed 25 Private MD: Hamzah Leblanc Diagnosis: Right renal mass Presentation: 01/16 20:00 Presenting complaint: Child states: Pain to both legs, his back and his shoulders for aj1 the past 2 weeks. Patient denies any injury to the area. Transition of care: patient was not received from another setting of care. Onset of symptoms was December 2018. Risk Assessment: Do you want to hurt yourself or someone else? Patient reports no desire to harm self or others. Initial Sepsis Screen: Does the patient meet any 2 criteria? No. Patient's initial sepsis screen is negative. Does the patient have a suspected source of infection? No. Patient's initial sepsis screen is negative. Care prior to arrival: None. 20:00 Method Of Arrival: Ambulatory aj1 20:00 Acuity: JUDIT 3 aj1 Triage Assessment: 20:01 General: Appears in no apparent distress. uncomfortable, Behavior is calm, cooperative, aj1 appropriate for age. Pain: Complains of pain in back, right leg and left leg Pain currently is 8 out of 10 on a pain scale. Neuro: Level of Consciousness is awake, alert, obeys commands. Cardiovascular: Patient's skin is warm and dry. Respiratory: Airway is patent Respiratory effort is even, unlabored, Respiratory pattern is regular, symmetrical. Historical: - Allergies: 20:01 NKDA; aj1 - Home Meds: 20:01 amlodipine 2.5 mg tab 1 tab once daily [Active]; atorvastatin 40 mg Oral tab 1 tab once aj1 daily [Active]; citalopram 10 mg tab 1 tab once daily [Active]; Pt is not compliant with medications [Active]; Sodium Bicarbonate 10GR tab RIS Oral 3 tabs three times a day [Active]; tamsulosin 0.4 mg Oral cp24 1 cap once daily [Active]; - PMHx: 20:01 Bladder cancer; Cancer; Hypertension; aj1 - Immunization history:: Flu vaccine is up to date. - Social history:: Smoking status: Patient/guardian denies using tobacco. - Ebola Screening: : Patient denies travel to an Ebola-affected area in the 21 days before illness onset. Screenin:04 Abuse screen: Denies threats or abuse. Denies injuries from another. Nutritional mg2 screening: No deficits noted. Tuberculosis screening: No symptoms or risk factors identified. Fall Risk None identified. Assessment: 20:12 General: Appears in no apparent distress. comfortable, Behavior is calm, cooperative. mg2 Pain: Complains of pain in left leg and right leg and back Pain does not radiate. Quality of pain is described as crampy, Pain began gradually, 2 weeks now. Neuro: Level of Consciousness is awake, alert, obeys commands, Oriented to person, place, time, situation. Cardiovascular: Capillary refill < 3 seconds Patient's skin is warm and dry. Respiratory: Airway is patent Respiratory effort is even, unlabored, Respiratory pattern is regular, symmetrical. GI: No signs and/or symptoms were reported involving the gastrointestinal system. : No deficits noted. EENT: No signs and/or symptoms were reported regarding the EENT system. Derm: Skin is intact, is healthy with good turgor, Skin is pink, warm \T\ dry. normal. Musculoskeletal: Circulation, motion, and sensation intact. Capillary refill < 3 seconds. 20:13 Musculoskeletal: Reports pain in left leg and right leg and back. mg2 21:28 Reassessment: patient informed about the plan. [phone] ( lisandro-son). mg2 01/17 01:21 Reassessment: Patient appears in no apparent distress at this time. No changes from la1 previously documented assessment. Patient and/or family updated on plan of care and expected duration. Pain level reassessed. Vital Signs: 01/16 19:55 Pulse 65; Resp 18; Temp 97.8; Pulse Ox 99% on R/A; mg2 19:55 BP 121 / 65; mg2 21:18 BP 117 / 51; Pulse 59; Resp 18; Pulse Ox 98% on R/A; mg2 22:31 BP 119 / 56; Pulse 57; Resp 17; Pulse Ox 99% on R/A; mg2 23:47 BP 109 / 58; Pulse 54; Resp 18; Pulse Ox 96% on R/A; mg2 01/17 00:47 BP 115 / 55; Pulse 52; Resp 18; Pulse Ox 98% on R/A; mg2 01:21 BP 116 / 57; Pulse 82; Resp 16; Pulse Ox 100% on R/A; la1 02:06 BP 121 / 67; Pulse 71; Resp 16; Pulse Ox 99% on R/A; la1 ED Course: 01/16 19:28 Patient arrived in ED. am2 19:28 Hamzah Leblanc DO is Private Physician. am2 19:49 Yonathan Martinez, RN is Primary Nurse. mg2 20:01 Triage completed. aj1 20:01 Arm band placed on Patient placed in an exam room. aj1 20:04 Michael Erwin NP is PHCP. pm1 20:04 Rodolfo Vaz MD is Attending Physician. pm1 20:04 No provider procedures requiring assistance completed. mg2 20:13 Patient has correct armband on for positive identification. Pulse ox on. NIBP on. Door mg2 closed. 20:46 Initial lab(s) drawn, by sd, sent to lab. Inserted saline lock: 20 gauge in left lt1 antecubital area, using aseptic technique. 21:44 XRAY Chest (1 view) In Process Unspecified. EDMS 21:59 CT completed. Pt tolerated procedure poorly. Patient moved to CT via stretcher. Patient eh moved back from CT. 22:24 CT Aorta for Dissection In Process Unspecified. EDMS 07 02:07 IV discontinued, intact, bleeding controlled, No redness/swelling at site. Pressure la1 dressing applied. Administered Medications: 01/16 21:28 Drug: NS 0.9% 1000 ml Route: IV; Rate: 1000 ml; Site: left antecubital; mg2 01/17 00:59 Follow up: Response: No adverse reaction; IV Status: Completed infusion; IV Intake: mg2 1000ml 02:24 Follow up: IV Status: Completed infusion la1 Intake: 00:59 IV: 1000ml; Total: 1000ml. mg2 Outcome: 01:57 Discharge ordered by . pm1 02:07 Discharged to home via wheelchair. la1 02:07 Condition: stable 02:07 Condition: stable 02:07 Discharge instructions given to patient, family, Instructed on discharge instructions, follow up and referral plans. Demonstrated understanding of instructions, follow-up care. 02:24 Patient left the ED. la1 Signatures: Dispatcher [employer] EDMD Gilda Landers RN RN aj1 Rusty Johnson Lee, RN RN la1 Michael Erwin, SCRIPT SUPERVISOR SCRIPT SUPERVISOR pm1 Katya Tong am2 Yonathan Martinez, RN RN mg2 Merlene Badillo lt1
--- NOTE | 2019-01-17 08:23 | RAD REPORT ---
EXAM DESCRIPTION: RAD - Chest Single View - 01/16/2019 9:43 pm CLINICAL HISTORY: Back pain, chest pain, shoulder pain COMPARISON: January 12, 2019 ; February 05, 2000 16 TECHNIQUE: AP portable chest image was obtained 2135 hours . FINDINGS: Lung volumes are low. No peripheral mass or consolidation. Cardiac silhouette is mildly en larged, accentuated by shallow inspiration. No vascular engorgement. Hilar regions are stable. Medias tinal fullness is present believed to be the affects of the shallow inspiration, portable imaging and slight rotation. Similar pattern was seen back in 2016. No measurable pleural effusion and no pneumothorax. No acute bony abnormality seen. No acute aortic findings suspected. IMPRESSION: No acute cardiopulmonary process. No suspicious change from comparison.
--- NOTE | 2019-01-17 10:17 | RAD REPORT ---
EXAM DESCRIPTION: CT - Angio Aorta For Dissection - 01/17/2019 12:50 am CLINICAL HISTORY: The patient is 78 years old and is Male; back pain TECHNIQUE: Axial computed tomographic angiography images of the chest, abdomen and pelvis with intra venous contrast using CT angiography protocol. Sagittal and coronal reformatted images were created and reviewed. This CT exam was performed using one or more of the following dose reduction techniq ues: automated exposure control, adjustment of the mA and/or kV according to patient size, and/or u se of iterative reconstruction technique. MIP reconstructed images were created and reviewed. COMPARISON: CT abdomen and pelvis without contrast dated 12/09/2016. FINDINGS: VASCULATURE: AORTA: Mild atherosclerotic calcification of the abdominal aorta. No aortic aneurysm. No dissection. PULMONARY ARTERIES: Unremarkable as visualized. No pulmonary embolism is identified. GREAT VESSELS OF AORTIC ARCH: No acute findings. No dissection. No arterial occlusion or signi ficant stenosis. CELIAC TRUNK AND MESENTERIC ARTERIES: No acute findings. No occlusion or significant stenosis. RENAL ARTERIES: No acute findings. No occlusion or significant stenosis. ILIAC ARTERIES: No acute findings. No occlusion or significant stenosis. CHEST: LUNGS: Bibasilar atelectasis and/or scarring. No focal consolidation, pleural effusion or pneumoth orax. PLEURAL SPACE: See above. HEART: Coronary calcifications. No significant pericardial effusion. ABDOMEN: LIVER: Unremarkable. No mass. GALLBLADDER AND BILE DUCTS: Unremarkable. No calcified stones. No ductal dilation. PANCREAS: Unremarkable. No ductal dilation. No mass. SPLEEN: Unremarkable. No splenomegaly. ADRENALS: Unremarkable. No mass. KIDNEYS AND URETERS: Heterogenous enhancing right renal mass in the inferior pole measuring 3.6 x 2.9 cm. Mild chronic appearing bilateral hydronephrosis and hydroureter. STOMACH AND BOWEL: Unremarkable. No obstruction. No mucosal thickening. PELVIS: APPENDIX: The appendix is seen and is within normal limits BLADDER: Multinodular appearance of the bladder, likely diverticula. REPRODUCTIVE: Prior prostatectomy. CHEST, ABDOMEN and PELVIS: INTRAPERITONEAL SPACE: Unremarkable. No significant fluid collection. No free air. BONES/JOINTS: Osteopenia. Multilevel degenerative changes. Postsurgical changes surrounding the iliac bifurcation. No acute fracture. No dislocation. SOFT TISSUES: Unremarkable. LYMPH NODES: Unremarkable. No enlarged lymph nodes. IMPRESSION: 1. No aortic dissection or aneurysm. Mild scattered atherosclerotic disease. 2. Heterogenous enhancing right renal mass in the inferior pole measuring 3.6 x 2.9 cm. Finding c oncerning for renal cell carcinoma. Dedicated renal ultrasound may be of diagnostic use. 3. Pelvic postsurgical changes most compatible with prostatectomy and pelvic leno dissection. 4. Multilobular appearance of the urinary bladder with wall thickening suggestive of multiple diver ticula. Findings likely representing chronic bladder obstruction. Bilateral hydronephrosis and hydrou reter. 5. Osteopenia. Multilevel degenerative changes. Electronically signed by: Esteban Snow DO 01/16/2019 10:50 PM CDT Due to temporary technical issues with the PACS/Fluency reporting system, reports are being signed by the in house radiologist as a courtesy to ensure prompt reporting. The interpreting radiologist is f ully responsible for the content of the report.
--- NOTE | 2019-01-17 19:45 | EKG ---
Test Date: 2019-01-16 Test Time: 20:37:[address] Vendor: MG MEASUREMENT RESULTS: Intervals: Rate: 54 FL: 220 QRSD: 88 QT: 430 QTc: 407 [place]: P: 76 FL: 220 QRS: 5 T: 16 INTERPRETIVE STATEMENTS: Sinus bradycardia with 1st degree AV block Nonspecific ST and T wave abnormality Abnormal ECG Compared to ECG 01/12/2019 16:21:36 First degree AV block now present Sinus rhythm no longer present Atrial premature complex(es) no longer present ST (T wave) deviation still present Electronically Signed On 01-17-19 19:40:47 CDT by Jeremy Abreu
== END 2019-01-17 02:24 | disposition home or self-care (01) ==
LOC: ER 19:23
DX: N28.9 Disorder of kidney and ureter, unspecified (principal); I10 Essential (primary) hypertension; Z85.51 Personal history of malignant neoplasm of bladder
CPT/HCPCS: 93005; 85025; 80048; 36415; 83735; 85610; 80076; 84484 ×2; 71275; 74175; 71045; Q9967; J2550; J7030 ×2; 96360; 96361; 99284

== ENCOUNTER 2019-05-26 16:33 | Observation (INO) | payer MEDICARE ==
--- NOTE | 2019-05-26 19:33 | RAD REPORT ---
EXAM DESCRIPTION: CT - Head Brain Wo Cont - 05/26/2019 7:25 pm CLINICAL HISTORY: Headache COMPARISON: 2016 TECHNIQUE: Computed axial tomography of the head was obtained. IV contrast was not requested. All CT scans are performed using dose optimization technique as appropriate and may include automated exposure control or mA/KV adjustment according to patient size. FINDINGS: An intracranial bleed is not seen . Small left cerebellar infarct The ventricles are normal in caliber. Bilateral frontal lobe atrophy is without significant change Fluid within the sinuses/ mastoids is not seen. Mild chronic ethmoid sinusitis 1 IMPRESSION: No acute intracranial abnormality is seen. If patient's symptoms persist MRI of the bra in would be recommended.
--- NOTE | 2019-05-26 19:42 | RAD REPORT ---
EXAM DESCRIPTION: Demetri Ortiz And Yonas (2 Views)05/26/2019 7:31 pm CLINICAL HISTORY: Cough COMPARISON: December 2018 FINDINGS: The lungs appear clear of acute infiltrate. The heart is mildly to moderately enlarged. The aorta is tortuous/ectatic IMPRESSION: No acute abnormalities displayed
[2019-05-26 19:48] LABS: Absolute Lymphocytes (CBC) 0.9 K/uL (0.7-4.9); Basophils % 0.6 % (0-1.3); Lymphocytes % 14.2 % (15.3-44.8); RBC Red Blood Cell Count 5.38 M/uL (4.33-5.43)
[2019-05-26 19:54] LABS: Albumin 3.6 g/dL (3.4-5.0); Bilirubin Direct 0.2 mg/dL (0-0.2); Bilirubin Total 0.7 mg/dL (0.2-1.0); CKMB Creatine Kinase MB 1.3 ng/mL (0.3-3.6); Magnesium 1.9 mg/dL (1.8-2.4); Potassium 3.6 mmol/L (3.5-5.1); Protein, Total 7.3 g/dL (6.4-8.2); Troponin (Emerg Dept Use Only) 0.08 ng/mL (0.0-0.045)
[2019-05-26 19:56] LABS: Protime INR 1.15
[2019-05-26] MEDS ORDERED: ASPIRIN 81 MG CHEWABLE TABLET ONE (20:40)
--- NOTE | 2019-05-26 20:52 | ER ---
Nurse's Notes [facility] Name: Lisandro Livingston Age: 79 yrs Sex: Male : 1940 Arrival Date: 05/26/2019 Time: 16:38 Bed 30 Private MD: Diagnosis: Weakness;elevated troponin;Urinary tract infection, site not specified Presentation: 05/26 16:39 Presenting complaint: Patient states: generalized pain and weakness started today. sv Transition of care: patient was not received from another setting of care. Onset of symptoms was May 26, 2019. Risk Assessment: Do you want to hurt yourself or someone else? Patient reports no desire to harm self or others. Care prior to arrival: None. 16:39 Method Of Arrival: Wheelchair sv 16:39 Acuity: JUDIT 3 sv 16:45 Initial Sepsis Screen: Does the patient meet any 2 criteria? No. Patient's initial tr5 sepsis screen is negative. Does the patient have a suspected source of infection? No. Patient's initial sepsis screen is negative. Triage Assessment: 16:39 General: Appears in no apparent distress. uncomfortable, Behavior is calm, cooperative, sv appropriate for age. Neuro: Level of Consciousness is awake, alert, obeys commands, Reports weakness. Respiratory: Respiratory effort is even, unlabored, Respiratory pattern is regular, symmetrical. Historical: - Allergies: 16:39 NKDA; sv - PMHx: 16:39 Bladder cancer; Cancer; Hypertension; sv - Immunization history:: Adult Immunizations up to date. - Social history:: Smoking status: unknown. - Ebola Screening: : No symptoms or risks identified at this time. Screenin:00 Abuse screen: Denies threats or abuse. Nutritional screening: No deficits noted. tr5 Tuberculosis screening: No symptoms or risk factors identified. Fall Risk None identified. Assessment: 19:00 General: Appears in no apparent distress. General:. Pain:. Pain: Denies pain. Neuro: tr5 Level of Consciousness is awake, alert, obeys commands, Oriented to person, place, time. Cardiovascular: Heart tones present Capillary refill < 3 seconds. Respiratory: Reports shortness of breath at rest Airway is patent Respiratory effort is even, unlabored, Respiratory pattern is regular, symmetrical. GI: No signs and/or symptoms were reported involving the gastrointestinal system. : No signs and/or symptoms were reported regarding the genitourinary system. EENT: No signs and/or symptoms were reported regarding the EENT system. Derm: No signs and/or symptoms reported regarding the dermatologic system. Musculoskeletal: No signs and/or symptoms reported regarding the musculoskeletal system. 20:00 Reassessment: Patient appears in no apparent distress at this time. Patient and/or tr5 family updated on plan of care and expected duration. Pain level reassessed. Patient is alert, oriented x 3, equal unlabored respirations, skin warm/dry/pink. Vital Signs: 16:42 BP 118 / 54; Pulse 47; Resp 18; Temp 98.4(O); Pulse Ox 96% ; Height 5 ft. 4 in. (162.56 sv cm); 19:57 BP 122 / 60; Pulse 79; Resp 16; Pulse Ox 99% on R/A; tr5 21:00 BP 123 / 61; Pulse 65; Resp 16; Pulse Ox 100% on R/A; tr5 21:18 Weight 79.38 kg (M); tr5 21:18 Body Mass Index 30.04 (79.38 kg, 162.56 cm) tr5 ED Course: 16:38 Patient arrived in ED. as 16:39 Arm band placed on. sv 16:42 Triage completed. sv 17:35 Sunil Mejia, RN is Primary Nurse. tr5 18:08 Candido Elise PA is PHCP. cp 18:08 Lj Black MD is Attending Physician. cp 18:53 Radiology exam delayed due to IV insertion attempt and/or patient not having az appropriate IV at this time. 19:00 Call light in reach. Side rails up X 1. tr5 19:00 Missed attempt(s): 22 gauge forearm. Bleeding controlled, band aid applied, catheter jp3 tip intact. 19:06 Missed attempt(s): 20 gauge in right antecubital area. jp3 19:10 Missed attempt(s): 22 gauge in left forearm. tr5 19:15 Initial lab(s) drawn, by me, sent to lab. Inserted saline lock: 20 gauge in right tr5 forearm, using aseptic technique. 19:26 CT Head Brain wo Cont In Process Unspecified. EDMS 19:31 XRAY Chest Pa And Lat (2 Views) In Process Unspecified. EDMS 19:46 Urine collected: clean catch specimen, clear, christopher colored. jp3 20:51 Christine Patel MD is Hospitalizing Provider. cp 22:36 No provider procedures requiring assistance completed. Patient admitted, IV remains in tr5 place. Administered Medications: 20:42 Drug: Aspirin Chewable Tablet 324 mg Route: PO; tr5 21:24 Follow up: Response: Marked relief of symptoms tr5 21:42 Drug: Rocephin 1 grams Route: IV; Rate: bolus; Site: right antecubital; tr5 21:43 Drug: Lovenox 1 mg/kg Route: Sub-Q; Site: abdomen; tr5 Outcome: 20:52 Decision to Hospitalize by Provider. cp 22:36 Admitted to Med/surg accompanied by tech, via stretcher, via wheelchair, with chart, tr5 Report called to Merna SALMERON 22:36 Condition: stable 22:36 Instructed on the need for admit. 22:37 Patient left the ED. tr5 Signatures: Dispatcher [employer] Velia Zepeda, RN RN Katina Napoles Corey, PABLO PA Forrest Syed jp3 Justyna Levin Tommie, RN RN tr5 Corrections: (The following items were deleted from the chart) 16:44 16:42 Pulse 47bpm; Resp 18bpm; Pulse Ox 98%; Temp 98.4F Oral; Height 5 ft. 4 in.; sv sv 16:44 16:42 BP 118 / 54; Pulse 47bpm; Resp 18bpm; Pulse Ox 98%; Temp 98.4F Oral; Height 5 ft. sv 4 in.; sv 16:47 16:39 Acuity: JUDIT 4 sv sv
--- NOTE | 2019-05-26 20:52 | EDPHYS ---
Physician Documentation [facility] Name: Lisandro Livingston Age: 79 yrs Sex: Male : 1940 Arrival Date: 05/26/2019 Time: 16:38 Bed 30 Private MD: ED Physician Lj Black HPI: 05/26 18:35 This 79 yrs old Male presents to ER via Wheelchair with complaints of Doesn't cp Feel Right. 18:35 The patient's problem is reported as weakness, that is generalized, worse in lower cp extremities. 18:35 Onset: The symptoms/episode began/occurred today. cp 18:35 Duration: The episode is continuous. Associated signs and symptoms: Pertinent cp positives: headache, generalized pain, Pertinent negatives: abdominal pain, chest pain, diaphoresis, numbness, tingling, vomiting. Severity of symptoms: in the emergency department the symptoms are unchanged despite home interventions. Patient's baseline: Neuro: alert and fully oriented, Motor: no deficits, Ambulation: walks with assist only, uses cane, Speech:. The patient has experienced similar episodes in the past, multiple times. Historical: - Allergies: 16:39 NKDA; sv - PMHx: 16:39 Bladder cancer; Cancer; Hypertension; sv - Immunization history:: Adult Immunizations up to date. - Social history:: Smoking status: unknown. - Ebola Screening: : No symptoms or risks identified at this time. ROS: 18:40 Constitutional: Negative for body aches, chills, fever, poor PO intake. cp 18:40 Eyes: Negative for injury, pain, redness, and discharge. cp 18:40 ENT: Negative for drainage from ear(s), ear pain, sore throat, difficulty swallowing, difficulty handling secretions. 18:40 Cardiovascular: Negative for chest pain, edema, palpitations. 18:40 Respiratory: Positive for cough, with no reported sputum, Negative for shortness of breath, wheezing. 18:40 Abdomen/GI: Negative for abdominal pain, nausea, vomiting, and diarrhea, constipation, black/tarry stool, rectal bleeding. 18:40 MS/extremity: Positive for pain, tenderness, of the right leg and left leg, Negative for injury or acute deformity. 18:40 Skin: Negative for rash. 18:40 Neuro: Positive for headache, weakness, Negative for altered mental status, loss of consciousness, syncope. 18:40 All other systems are negative. Exam: 18:45 Constitutional: The patient appears in no acute distress, alert, awake, cp non-diaphoretic, non-toxic, well developed, well nourished. 18:45 Head/Face: Normocephalic, atraumatic. cp 18:45 Eyes: Periorbital structures: appear normal, Pupils: equal, round, and reactive to light and accomodation, Extraocular movements: intact throughout, Conjunctiva: normal, no exudate, no injection, Sclera: no appreciated abnormality, Lids and lashes: appear normal, bilaterally. 18:45 ENT: External ear(s): are unremarkable, Ear canal(s): are normal, clear, TM's: bulging, is not appreciated, bilaterally, dullness, bilaterally, erythema, is not appreciated, bilaterally, Nose: is normal, Mouth: Lips: moist, Oral mucosa: pink and intact, moist, Posterior pharynx: is normal, airway is patent, no erythema, no exudate. 18:45 Neck: ROM/movement: is normal, is supple, without pain, no range of motions limitations, no meningismus, no nuchal rigidity, Lymph nodes: no appreciated lymphadenopathy. 18:45 Chest/axilla: Inspection: normal, Palpation: is normal, no crepitus, no tenderness. 18:45 Cardiovascular: Rate: bradycardic, Rhythm: irregular, Pulses: Pulses are 2+ in right radial artery and left radial artery. Edema: is not appreciated, JVD: is not appreciated. 18:45 Respiratory: the patient does not display signs of respiratory distress, Respirations: normal, no use of accessory muscles, no retractions, no splinting, no tachypnea, labored breathing, is not present, Breath sounds: are clear throughout, no decreased breath sounds, no stridor, no wheezing. 18:45 Abdomen/GI: Inspection: abdomen appears normal, Palpation: abdomen is soft and non-tender, in all quadrants, voluntary guarding, is not appreciated. 18:45 Back: pain, that is moderate, ROM is painful, with flexion. 18:45 Musculoskeletal/extremity: Exam is negative for calf tenderness, deformity, injury, ROM: intact in all extremities. 18:45 Skin: cellulitis, is not appreciated, no rash present. 18:45 Neuro: Orientation: to person, place \T\ time. Mentation: is normal, Cerebellar function: Motor: moves all fours, general weakness without focal deficits, Sensation: no obvious gross deficits. 20:25 Radiologist reports: no acute findings Vital Signs: 16:42 BP 118 / 54; Pulse 47; Resp 18; Temp 98.4(O); Pulse Ox 96% ; Height 5 ft. 4 in. (162.56 sv cm); 19:57 BP 122 / 60; Pulse 79; Resp 16; Pulse Ox 99% on R/A; tr5 21:00 BP 123 / 61; Pulse 65; Resp 16; Pulse Ox 100% on R/A; tr5 21:18 Weight 79.38 kg (M); tr5 21:18 Body Mass Index 30.04 (79.38 kg, 162.56 cm) tr5 MDM: 18:21 Patient medically screened. cp 21:15 Data reviewed: vital signs, nurses notes, lab test result(s), EKG, radiologic studies, cp CT scan, plain films, and as a result, I will admit patient. 05/26 18:29 Order name: Basic Metabolic Panel; Complete Time: 20:21 05/26 20:44 Interpretation: Normal except: BUN 38; GFR 64; CA 7.9. 05/26 18:29 Order name: CBC with Diff; Complete Time: 20:21 05/26 20:21 Interpretation: Normal except: PLT 112; KORY% 77.7; LYM% 14.2. 05/26 18:29 Order name: LFT's; Complete Time: 20:21 05/26 18:29 Order name: Magnesium; Complete Time: 20:21 05/26 18:29 Order name: NT PRO-BNP; Complete Time: 20:21 05/26 18:29 Order name: PT-INR; Complete Time: 20:21 05/26 18:29 Order name: Troponin (emerg Dept Use Only); Complete Time: 20:21 05/26 20:21 Interpretation: Abnormal: TROPED 0.08. 05/26 18:29 Order name: Ckmb; Complete Time: 20:21 05/26 18:29 Order name: ESR; Complete Time: 20:21 05/26 18:29 Order name: Urine Microscopic Only; Complete Time: 21:10 05/26 21:11 Interpretation: Normal except: UWBC 5-10; UBACT 20-50. 05/26 18:29 Order name: Influenza Screen (a \T\ B); Complete Time: 20:21 05/26 19:46 Order name: Urine Dipstick--Ancillary (enter results); Complete Time: 21:10 ar5 05/26 20:57 Order name: Urine Culture EDMT 05/26 21:36 Order name: CBC with Automated Diff EDMT 05/26 18:29 Order name: EKG; Complete Time: 18:31 05/26 18:29 Order name: XRAY Chest Pa And Lat (2 Views); Complete Time: 20:21 05/26 18:54 Order name: CT Head Brain wo Cont; Complete Time: 20:21 05/26 21:36 Order name: CBC with Automated Diff; Complete Time: 21:53 EDMT 05/26 21:36 Order name: Comprehensive Metabolic Panel EDMT 05/26 21:36 Order name: Comprehensive Metabolic Panel; Complete Time: 21:53 EDMT 05/26 21:36 Order name: Protime (+INR) EDMT 05/26 21:36 Order name: Protime (+INR); Complete Time: 21:53 EDMT 05/26 21:36 Order name: PTT, Activated Partial Thromb EDMT 05/26 21:36 Order name: PTT, Activated Partial Thromb; Complete Time: 21:53 [facility] 05/26 21:37 Order name: Troponin I EDMT 05/26 21:37 Order name: Troponin I; Complete Time: 21:53 EDMT 05/26 21:37 Order name: Troponin I EDMT 05/26 18:29 Order name: Cardiac monitoring; Complete Time: 19:38 05/26 18:29 Order name: EKG - Nurse/Tech; Complete Time: 19:38 05/26 18:29 Order name: IV Saline Lock; Complete Time: 19:38 05/26 18:29 Order name: Labs collected and sent; Complete Time: 19:38 05/26 18:29 Order name: O2 Per Protocol; Complete Time: 19:38 05/26 18:29 Order name: O2 Sat Monitoring; Complete Time: 19:38 05/26 18:29 Order name: Urine Dipstick-Ancillary (obtain specimen); Complete Time: 19:38 cp 05/26 20:49 Order name: EKG; Complete Time: 20:50 cp 05/26 20:49 Order name: EKG - Nurse/Tech; Complete Time: 21:10 cp 05/26 21:36 Order name: CONS Pharmacy Consult EDMS 05/26 21:36 Order name: Heart Healthy EDMS Administered Medications: 20:42 Drug: Aspirin Chewable Tablet 324 mg Route: PO; tr5 21:24 Follow up: Response: Marked relief of symptoms tr5 21:42 Drug: Rocephin 1 grams Route: IV; Rate: bolus; Site: right antecubital; tr5 21:43 Drug: Lovenox 1 mg/kg Route: Sub-Q; Site: abdomen; tr5 Disposition: 05/27 07:15 Co-signature as Attending Physician, Lj Black MD I agree with the assessment and kdr plan of care. Disposition: 05/26/19 20:52 Hospitalization ordered by Christine Patel for Observation. Preliminary diagnosis are Weakness, elevated troponin, Urinary tract infection, site not specified. - Bed requested for Telemetry/MedSurg (observation). - Status is Observation. tr5 - Condition is Stable. - Problem is new. - Symptoms have improved. UTI on Admission? Yes Signatures: Dispatcher [employer] EDMT Velia Higgins, RN RN Lj Black MD MD kdr Chretien, Felicia, RN RN Canddio Elise PA PA cp Sunil Mejia RN RN tr5 Corrections: (The following items were deleted from the chart) 05/26 20:44 20:21 Normal except: BUN 38; GFR 64. cp cp 21:14 20:52 Hospitalization Ordered by Christine Patel MD for Observation. Preliminary cp diagnosis is Weakness; elevated troponin. Bed requested for Telemetry/MedSurg (observation). Status is Observation. Condition is Stable. Problem is new. Symptoms have improved. UTI on Admission? No. cp 21:48 21:14 05/26/2019 20:52 Hospitalization Ordered by Christine Patel MD for Observation. fc Preliminary diagnosis is Weakness; elevated troponin; Urinary tract infection, site not specified. Bed requested for Telemetry/MedSurg (observation). Status is Observation. Condition is Stable. Problem is new. Symptoms have improved. UTI on Admission? Yes. cp 22:37 21:48 05/26/2019 20:52 Hospitalization Ordered by Christine Patel MD for Observation. tr5 Preliminary diagnosis is Weakness; elevated troponin; Urinary tract infection, site not specified. Bed requested for Telemetry/MedSurg (observation). Status is Observation. Condition is Stable. Problem is new. Symptoms have improved. UTI on Admission? Yes. fc
[2019-05-26 20:56] LABS: Urine Blood 1+ (NEG); Urine Glucose NEGATIVE (NEG); Urine Protein NEGATIVE (NEG)
[2019-05-26 20:56] LABS: Urine Bacteria 20-50 /HPF (NONE SEEN); Urine Culture Reflex Order REFLEXED; Urine RBC <5 /HPF (NONE SEEN)
[2019-05-26] MEDS ORDERED: MORPHINE 2 MG/ML SYR IV PRN (21:31)
[2019-05-26] MEDS ORDERED: ACETAMINOPHEN 500 MG TAB PO PRN (21:31)
[2019-05-26] MEDS ORDERED: ONDANSETRON 4 MG/2 ML VIAL IV PRN (21:31)
[2019-05-26] MEDS ORDERED: CEFTRIAXONE/SWI 1gm 1 GM/10 ML SYR ONE (21:39)
[2019-05-26] MEDS ORDERED: ENOXAPARIN 80 MG/0.8 ML SQ ONE (21:39)
[2019-05-26 23:13] VITALS: BMI 34.8
[2019-05-26] MEDS: NA CHLORIDE 0.9% 1,000 ML IV SCH (23:45)
[2019-05-27 03:08] VITALS: O2SAT 97
[2019-05-27 05:02] LABS: Absolute Lymphocytes (CBC) 1.1 K/uL (0.7-4.9); Basophils % 0.6 % (0-1.3); Hematocrit 42.7 % (39.6-49.0); Lymphocytes % 18.8 % (15.3-44.8); RBC Red Blood Cell Count 4.95 M/uL (4.33-5.43)
[2019-05-27 05:06] LABS: Protime INR 1.13
[2019-05-27 05:29] LABS: Albumin 3.1 g/dL (3.4-5.0); Bilirubin Total 0.7 mg/dL (0.2-1.0); Potassium 3.6 mmol/L (3.5-5.1); Protein, Total 6.5 g/dL (6.4-8.2)
--- NOTE | 2019-05-27 06:36 | EKG ---
Test Date: 2019-05-26 Test Time: 21:07:17 Jetting Machine Operator: TR MEASUREMENT RESULTS: Intervals: Rate: 88 [place]: QRSD: 86 QT: 358 QTc: 433 [place]: P: [place]: QRS: 18 T: 58 INTERPRETIVE STATEMENTS: Atrial fibrillation Nonspecific ST and T wave abnormality Abnormal ECG Compared to ECG 01/16/2019 20:37:26 Sinus bradycardia no longer present First degree AV block no longer present ST (T wave) deviation still present Electronically Signed On 05-27-19 06:35:44 [employer] by Jeremy Abreu
[2019-05-27] MEDS ORDERED: GABAPENTIN 300 MG CAP PO PRN (08:10)
[2019-05-27] MEDS ORDERED: LORATADINE 10 MG TAB PO PRN (08:10)
[2019-05-27] MEDS ORDERED: ACETAMINOPHEN 500 MG TAB PO PRN (08:10)
--- NOTE | 2019-05-27 08:19 | P.HP ---
Certification for Inpatient Patient admitted to: Observation With expected LOS: <2 Midnights Patient will require the following post-hospital care: None Practitioner: I am a practitioner with admitting privileges, knowledge of patient current condition, hospital course, and medical plan of care. Services: Services provided to patient in accordance with Admission requirements found in Title 42 Section 412.3 of the Code of Federal Regulations Patient History Date of Service: 05/26/19 Reason for admission: generalized weakness; urinary tract infection; elevated troponin History of Present Illness: Patient is an 79-year-old gentleman who came into the hospital with generalized weakness. He states he has been feeling like himself. He is very lethargic and just has no strain. He came into the emergency room for further evaluation. In the ER he had elevated troponin levels. Otherwise, his workup was unremarkable. We did a UA and we did find that he had a urinary tract infection. This is the most likely site cause of his weakness. He also has some dehydration per labs. His BUN is elevated. We will gently hydrate him and reassess him in the morning. Will check his troponins as well. We may get Cardiology to see him in the morning. Allergies No Known Allergies Allergy (Unverified 05/27/19 08:15) Home Medications: Acetaminophen [Tylenol Extra Strength] 500 mg PO Q4H PRN 05/26/19 Amlodipine Besylate [Norvasc] 2.5 mg PO DAILY 05/26/19 Atorvastatin Calcium 40 mg PO BEDTIME 05/26/19 Gabapentin 300 mg PO Q8H PRN 05/26/19 Loratadine 10 mg PO DAILY PRN 05/26/19 - Past Medical/Surgical History Has patient received pneumonia vaccine in the past: No Diabetic: No -: Chronic renal disease -: Bladder Cancer, [facility] Oncology-Dr. Antolin Valera -: Varicose veins -: HTN -: Depression with anxiety -: Nicotine dependence -: Ryan Cataracts sx -: Bladder reconstruction -: Bladder surgery Psychosocial/ Personal History: . 5 children - Family History Mother Medical History: Lung disease, Diabetes Father Medical History: Hypertension, Lung disease, Diabetes - Social History Smoking Status: Former smoker Alcohol use: No CD- Drugs: No Caffeine use: Yes Place of Residence: Home Review of Systems 10-point ROS is otherwise unremarkable Physical Examination - Vital Signs Temperature: 97.6 F Blood Pressure: 145/64 Pulse: 57 Respirations: 20 Pulse Ox (%): 95 - Physical Exam General: Alert, In no apparent distress, Oriented x3 HEENT: Atraumatic, PERRLA, Mucous membr. moist/pink, EOMI, Sclerae nonicteric Neck: Supple, 2+ carotid pulse no bruit, No LAD, Without JVD or thyroid abnormality Respiratory: Clear to auscultation bilaterally, Normal air movement Cardiovascular: Regular rate/rhythm, Normal S1 S2, No murmurs Gastrointestinal: Normal bowel sounds, Soft and benign, Non-distended, No tenderness Musculoskeletal: No clubbing, No swelling, No tenderness Integumentary: No rashes Neurological: Normal gait, Normal speech, Normal strength at 5/5 x4 extr, Normal tone, Sensation intact, Cranial nerves 3-12 intact, Normal affect Lymphatics: No axilla or inguinal lymphadenopathy - Studies Laboratory Data (last 24 hrs) 05/26/19 19:45: PT 13.5 H, INR 1.15 05/26/19 19:15: WBC 6.3, Hgb 16.0, Hct 46.0, Plt Count 112 L 05/26/19 19:15: Sodium 137, Potassium 3.6, BUN 38 H, Creatinine 1.10, Glucose 97 , Magnesium 1.9, Total Bilirubin 0.7, AST 43 H, ALT 46, Alkaline Phosphatase 126 H Microbiology Data (last 24 hrs): 05/26/19 18:35 Nasopharnyx Influenza Type A Antigen Screen - Final 05/26/19 18:35 Nasopharnyx Influenza Type B Antigen Screen - Final Assessment & Plan - Problems (Diagnosis) (1) Generalized weakness Current Visit: Yes Status: Acute (2) Urinary tract infection Current Visit: Yes Status: Acute (3) Elevated troponin Current Visit: Yes Status: Acute (4) History of bladder cancer Current Visit: Yes Status: Acute - Plan Plan: 1. Serial troponins and EKG 2. IV antibiotics and IV hydration 3. Cardiology consultation will be obtained 4. Out of bed and ambulate in the morning and see if he is back to his baseline 5. Gently hydrate and recheck his labs in the morning 6. GI and DVT prophylaxis Discharge Plan: Home Plan to discharge in: Greater than 2 days - Advance Directives Does patient have a Living Will: No Does patient have a Durable POA for Healthcare: No - Code Status/Comfort Care Code Status Assessed: Yes Code Status: Full Code Critical Care: No Time Spent Managing PTS Care (In Minutes): 45
[2019-05-27] MEDS ORDERED: CEFTRIAXONE/SWI 1gm 1 GM/10 ML SYR IV SCH (09:00)
[2019-05-27] MEDS ORDERED: AMLODIPINE 2.5 MG TAB PO SCH (09:00)
[2019-05-27] MEDS: NA CHLORIDE 0.9% 1,000 ML IV SCH (11:20)
--- NOTE | 2019-05-27 13:09 | ECHO ---
HEIGHT: 4 ft 11 in WEIGHT: 172 lb 9.6 oz DATE OF STUDY: 05/27/[address]: Jeremy Abreu MD 2-DIMENSIONAL: YES M.MODE: YES DOPPLER: YES COLOR FLOW: YES TDS: NO PORTABLE: NO DEFINITY: NO BUBBLE STUDY: NO DIAGNOSIS: POSITIVE TROPONIN CARDIAC HISTORY: CATHERIZATION: NO SURGERY: NO PROSTHETIC VALVE: NO PACEMAKER: NO MEASUREMENTS (cm) DIASTOLIC (NORMALS) SYSTOLIC (NORMALS) IVSd 1.1 (0.6-1.2) LA Diam 3.2 (1.9-4.0) LVEF 59% LVIDd 4.7 (3.5-5.7) LVIDs 3.2 (2.0-3.5) %FS 31% LVPWd 1.2 (0.6-1.2) Ao Diam 2.7 (2.0-3.7) 2 DIMENSIONAL ASSESSMENT: RIGHT ATRIUM: NORMAL LEFT ATRIUM: NORMAL RIGHT VENTRICLE: NORMAL LEFT VENTRICLE: NORMAL TRICUSPID VALVE: NORMAL MITRAL VALVE: NORMAL PULMONIC VALVE: NORMAL AORTIC VALVE: SCLEROSIS PERICARDIAL EFFUSION: NONE AORTIC ROOT: NORMAL LEFT VENTRICULAR WALL MOTION: NORMAL DOPPLER/COLOR FLOW: NORMAL COMMENTS: AORTIC SCLEROSIS WITH NO STENOSIS. NORMAL LEFT VENTRICULAR EJECTION FRACTION AND SIZE. NO WALL MOTION ABONORMALITY. NO EFFUSION. TECHNOLOGIST: Manuela WINTER
[2019-05-27 13:40] VITALS: BP 123/60; TEMP 97.8
--- NOTE | 2019-05-27 15:18 | P.DS ---
Admission Date: 05/26/19 Discharge Date: 05/27/19 Disposition: ROUTINE DISCHARGE Discharge Condition: GOOD Reason for Admission: generalized weakness; urinary tract infection; elevated troponin Procedures: None Brief History of Present Illness: 79-year-old gentleman with a history of coronary artery disease, peripheral vascular disease presented to the emergency department complaining of generalized weakness. Workup in the ED was unremarkable except UA suggesting the presence of UTI. His troponin was also mildly elevated. Patient was placed under observation for ACS rule out. Hospital Course: Troponin trended was mildly elevated but flat. EKG demonstrated atrial fibrillation and nonspecific ST-T wave abnormalities. Echocardiogram performed was unremarkable with normal EF, no wall motion abnormality and no significant valvular abnormalities. He was treated for UTI with IV Rocephin. Urine culture is pending to be followed. The patient requested to go home today. The patient will be started on Eliquis for afib. Also added aspirin for CAD on discharge. He is prescribed Augmentin to complete 7 days of treatment for UTI. He is informed and he agrees to follow with Dr. Abreu possible outpatient next week. Vital Signs/Physical Exam: Temp Pulse Resp BP Pulse Ox 97.8 F 75 16 123/60 97 05/27/19 12:00 05/27/19 12:00 05/27/19 12:00 05/27/19 12:00 05/27/19 12:00 General: Alert, In no apparent distress, Oriented x3 HEENT: Mucous membr. moist/pink Neck: Supple, JVD not distended Respiratory: Clear to auscultation bilaterally, Normal air movement Cardiovascular: No edema, Normal S1 S2, Irregular heart rate/rhythm Gastrointestinal: Normal bowel sounds, Soft and benign, Non-distended, No tenderness Musculoskeletal: No swelling, No erythema Integumentary: No rashes Neurological: Normal speech, Normal strength at 5/5 x4 extr Laboratory Data at Discharge: WBC 5.9 K/uL (4.3-10.9) 05/27/19 04:41 Hgb 14.5 g/dL (13.6-17.9) 05/27/19 04:41 Hct 42.7 % (39.6-49.0) 05/27/19 04:41 Plt Count 103 K/uL (152-406) L 05/27/19 04:41 PT 13.3 SECONDS (9.5-12.5) H 05/27/19 04:41 INR 1.13 05/27/19 04:41 APTT 40.5 SECONDS (24.3-36.9) H 05/27/19 04:41 Sodium 139 mmol/L (136-145) 05/27/19 04:41 Potassium 3.6 mmol/L (3.5-5.1) 05/27/19 04:41 BUN 40 mg/dL (7-18) H 05/27/19 04:41 Creatinine 1.10 mg/dL (0.55-1.3) 05/27/19 04:41 Glucose 95 mg/dL (74-106) 05/27/19 04:41 Magnesium 1.9 mg/dL (1.8-2.4) 05/26/19 19:15 Total Bilirubin 0.7 mg/dL (0.2-1.0) 05/27/19 04:41 AST 30 U/L (15-37) 05/27/19 04:41 ALT 31 U/L (12-78) 05/27/19 04:41 Alkaline Phosphatase 102 U/L (45-117) 05/27/19 04:41 Troponin I 0.07 ng/mL (0.0-0.045) H 05/26/19 23:50 Home Medications: Acetaminophen [Tylenol Extra Strength] 500 mg PO Q4H PRN 05/26/19 Amlodipine Besylate [Norvasc] 2.5 mg PO DAILY 05/26/19 Atorvastatin Calcium 40 mg PO BEDTIME 05/26/19 Gabapentin 300 mg PO Q8H PRN 05/26/19 Loratadine 10 mg PO DAILY PRN 05/26/19 Amoxicillin/Potassium Clav [Augmentin 875-125 Tablet] 1 each PO BID #14 tablet 05/27/19 Apixaban [Eliquis] 5 mg PO BID #60 tablet 05/27/19 Aspirin [Adult Low Dose Aspirin EC] 81 mg PO DAILY #30 tablet. 05/27/19 New Medications: Amoxicillin/Potassium Clav [Augmentin 875-125 Tablet] 1 each PO BID #14 tablet Apixaban [Eliquis] 5 mg PO BID #60 tablet Aspirin [Adult Low Dose Aspirin EC] 81 mg PO DAILY #30 tablet. Diet: AHA Activity: Ad vitor Followup: Jeremy Abreu MD [ACTIVE - CAN ADMIT] - 1 Week Time spent managing pt's care (in minutes): 32
--- NOTE | 2019-05-27 16:46 | CON ---
Date of Consultation: 05/27/2019 Reason For Consultation: Elevated troponin. History Of Present Illness: Mr. Livingston is 79, has a history of hypertension, bladder cancer, chronic renal disease, tobacco abuse, and venous insufficiency. He came in with UTI, weakness, slight confu sanjeev. No chest pain, nausea, vomiting, diaphoresis, PND, orthopnea, pedal edema, palpitation, or syn cope. Had elevated troponin of 0.07 and 0.08, not consistent with acute coronary artery syndrome. _ . He had a short episode of atrial fibrillation on telemetry, multiple PACs, negative chest x-ray. Negative CT of his head. Asymptomatic palpitations. Past Medical History: As stated above. Allergies: NONE. Review of Systems: Negative. Social History: Negative. Family History: Negative. Medications: At home include Lipitor, Neurontin, and Norvasc. Physical Examination: VITAL SIGNS: Stable. Normal sinus rhythm, PACs. HEENT: Negative. NECK: Supple. No bruit. CHEST: Clear. CARDIAC: Revealed regular rhythm and rate. No murmurs, gallops, or rubs. ABDOMEN: Benign. EXTREMITIES: Revealed no clubbing, cyanosis, or edema. Diagnostic Data: As stated earlier. Impression And Plan: Elevated troponin, not consistent with acute coronary artery syndrome, elevated BNP, abnormal rhythm with occasional PACs and short run of atrial fibrillation. The patient is 79, has a history of cancer in the past. Has venous insufficiency with tobacco disease, chronic renal di sease. I think an echocardiogram is reasonable. If the echocardiogram is normal, he can probably go home on urinary tract infection therapy. I would definitely suggest at least an aspirin once a day. It may be good for him to be seen as an outpatient and have an event monitor to make sure he is not having more atrial fibrillation. His blood pressure is well controlled. We will see what the echo shows before making final decisions. DUANE/TRACY Voice ID: [id number] Report ID: [id number]
[2019-05-27] MEDS ORDERED: ATORVASTATIN 40 MG TAB PO SCH (21:00)
--- NOTE | 2019-05-29 12:52 | EKG ---
Test Date: 2019-05-26 Test Time: 18:39:21 Steeping Press Tender: LUCIAN MEASUREMENT RESULTS: Intervals: Rate: 87 NM: QRSD: 88 QT: 350 QTc: 421 [place]: P: NM: QRS: 0 T: 145 INTERPRETIVE STATEMENTS: sr,pac Nonspecific ST and T wave abnormality Abnormal ECG Compared to ECG 01/16/2019 20:37:26 Ventricular premature complex(es) now present Sinus bradycardia no longer present First degree AV block no longer present ST (T wave) deviation still present Electronically Signed On 05-29-19 12:46:42 [employer] by Jeremy Abreu
--- OUTSIDE RECORDS SUMMARY | 2019-05-30 04:29 | XMS REPORT ---
:1940 [facility] [address] [place] [address] Care Team Providers Name Role Phone SHIRA HIGH Unavailable Unavailable FLORY LESLIE Unavailable Unavailable ANABELLE VERDE Unavailable Unavailable MARÍA POLANCO Unavailable Unavailable NICOLECHOLO, SUMI MEMBRENO Unavailable Unavailable Problems This patient has no known problems. Allergies, Adverse Reactions, Alerts This patient has no known allergies or adverse reactions. Medications This patient has no known medications. Results Test Description Test Time Test Comments Text Results Atomic Results Result Comments RAD, SPINE, 2018-04-12 10:47:00 Reason for exam:->LEG FINAL REPORT PATIENT ID: LUMBAR, COMPLETE PAINReason for [id number] CLINICAL (MIN 4 VIEWS) exam:->BACK HISTORY: LEG PAINBACK PAINReason for PAINHIP PAIN TECHNIQUE: exam:->HIP PAIN Five views of the lumbar spine. 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 There is no evidence for lumbar fracture or dislocation. There are multiple abdominal pelvic surgical clips. Signed: Tish Meade Verified Date/Time: 04/12/2018 10:47:57 Reading Location: [facility] Radiology Reading Room , HIP, 2 VIEWS, 2018-04-12 10:42:00 Reason for exam:->LEG FINAL REPORT PATIENT ID: RIGHT PAINReason for [id number] CLINICAL exam:->BACK HISTORY: LEG PAINBACK PAINReason for PAINHIP PAIN TECHNIQUE: exam:->HIP PAIN 2 views of the right hip COMPARISON: None IMPRESSION: There are degenerative changes of the right hip without evidence of fracture or dislocation. Signed: Tish Meade Verified Date/Time: 04/12/2018 10:42:38 Reading Location: [facility] Radiology Reading Room ALYSIS W/ MICROSCOPIC 2018-04-12 10:24:00 Test Item Value Reference Range Comments COLOR (BEAKER) (test guem=521) Light Yellow CLARITY (BEAKER) (test rcwj=529) Clear SPECIFIC GRAVITY UA (BEAKER) (test lqnz=686) 1.008 1.001-1.035 PH UA (BEAKER) (test ivhe=182) 6.5 5.0-8.0 PROTEIN UA (BEAKER) (test mmqw=104) Negative Negative GLUCOSE UA (BEAKER) (test bswr=544) Negative Negative KETONES UA (BEAKER) (test rdkc=421) Negative Negative BILIRUBIN UA (BEAKER) (test yqbg=357) Negative Negative BLOOD UA (BEAKER) (test huqs=550) Trace Negative NITRITE UA (BEAKER) (test wlqb=156) Negative Negative LEUKOCYTE ESTERASE UA (BEAKER) (test boji=747) Moderate Negative UROBILINOGEN UA (BEAKER) (test jzrw=108) 0.2 mg/dL 0.2-1.0 RBC UA (BEAKER) (test bgoe=380) 4 /HPF WBC UA (BEAKER) (test hrvw=873) 34 /HPF BACTERIA (BEAKER) (test guub=471) Moderate MUCUS (BEAKER) (test vvcp=3192) Rare SOURCE(BEAKER) (test vtxa=7798) Urine, Clean Catch BASIC METABOLIC [id number] 10:05:00 Test Item Value Reference Range Comments SODIUM (BEAKER) (test 137 meq/L 136-145 orgf=788) POTASSIUM (BEAKER) (test 4.7 meq/L 3.5-5.1 Specimen slightly sizk=791) hemolyzed CHLORIDE (BEAKER) (test 108 meq/L 98-107 iqzi=662) CO2 (BEAKER) (test 23 meq/L 22-29 ypyt=801) BLOOD UREA NITROGEN 87 mg/dL 7-21 (BEAKER) (test zseh=382) CREATININE (BEAKER) (test 1.67 mg/dL 0.57-1.25 Specimen slightly ldgg=791) hemolyzed GLUCOSE RANDOM (BEAKER) 92 mg/dL 70-105 (test meeu=053) CALCIUM (BEAKER) (test 8.9 mg/dL 8.4-10.2 cycj=278) EGFR (BEAKER) (test mL/min/1.73 sq m INSUFFICIENT CLINICAL DATA geey=8933) TO CALCULATE ESTIMATED GFR. HEPATIC FUNCTION [id number] 09:44:00 Test Item Value Reference Range Comments TOTAL PROTEIN (BEAKER) (test 7.2 gm/dL 6.0-8.3 Specimen slightly hemolyzed zhoh=946) ALBUMIN (BEAKER) (test 4.2 g/dL 3.5-5.0 Specimen slightly hemolyzed hhqp=4888) BILIRUBIN TOTAL (BEAKER) (test 0.7 mg/dL 0.2-1.2 Specimen slightly hemolyzed srzv=678) BILIRUBIN DIRECT (BEAKER) (test 0.3 mg/dL 0.1-0.5 Specimen slightly hemolyzed yfem=601) ALKALINE PHOSPHATASE (BEAKER) 80 U/L 40-150 (test jxih=992) AST (SGOT) (BEAKER) (test 23 U/L 5-34 Specimen slightly hemolyzed kluq=770) ALT (SGPT) (BEAKER) (test 26 U/L 6-55 Specimen slightly hemolyzed ptew=508) CBC W/PLT COUNT & AUTO [id number] 09:27:00 Test Item Value Reference Range Comments WHITE BLOOD CELL COUNT (BEAKER) (test byae=716) 8.0 K/ L 3.5-10.5 RED BLOOD CELL COUNT (BEAKER) (test txzw=570) 5.17 M/ L 4.63-6.08 HEMOGLOBIN (BEAKER) (test zdvo=279) 14.0 GM/DL 13.7-17.5 HEMATOCRIT (BEAKER) (test kptq=773) 45.0 % 40.1-51.0 MEAN CORPUSCULAR VOLUME (BEAKER) (test ysww=541) 87.0 fL 79.0-92.2 MEAN CORPUSCULAR HEMOGLOBIN (BEAKER) (test 27.1 pg 25.7-32.2 cjmc=006) MEAN CORPUSCULAR HEMOGLOBIN CONC (BEAKER) (test 31.1 GM/DL 32.3-36.5 envs=818) RED CELL DISTRIBUTION WIDTH (BEAKER) (test 13.3 % 11.6-14.4 mfwd=235) PLATELET COUNT (BEAKER) (test jogb=222) 189 K/CU MM 150-450 MEAN PLATELET VOLUME (BEAKER) (test bsea=215) 10.4 fL 9.4-12.4 NUCLEATED RED BLOOD CELLS (BEAKER) (test 0 /100 WBC 0-0 wauo=365) NEUTROPHILS RELATIVE PERCENT (BEAKER) (test 72 % bufd=024) LYMPHOCYTES RELATIVE PERCENT (BEAKER) (test 20 % upjz=176) MONOCYTES RELATIVE PERCENT (BEAKER) (test 7 % srpt=540) EOSINOPHILS RELATIVE PERCENT (BEAKER) (test 1 % hhpu=165) BASOPHILS RELATIVE PERCENT (BEAKER) (test 1 % znfx=295) NEUTROPHILS ABSOLUTE COUNT (BEAKER) (test 5.73 K/ L 1.78-5.38 xrnf=426) LYMPHOCYTES ABSOLUTE COUNT (BEAKER) (test 1.56 K/ L 1.32-3.57 gwal=454) MONOCYTES ABSOLUTE COUNT (BEAKER) (test 0.58 K/ L 0.30-0.82 wsvm=285) EOSINOPHILS ABSOLUTE COUNT (BEAKER) (test 0.09 K/ L 0.04-0.54 onin=687) BASOPHILS ABSOLUTE COUNT (BEAKER) (test 0.04 K/ L 0.01-0.08 iwsz=628) IMMATURE GRANULOCYTES-RELATIVE PERCENT (BEAKER) 0 % 0-1 (test acrr=4163) [id number] 06:07:00 Test Item Value Reference Range Comments PHOSPHORUS (BEAKER) (test xdiq=334) 2.9 mg/dL 2.3-4.7 [id number] 06:07:00 Test Item Value Reference Range Comments MAGNESIUM (BEAKER) (test tuif=083) 2.0 mg/dL 1.6-2.6 BASIC METABOLIC [id number] 06:07:00 Test Item Value Reference Range Comments SODIUM (BEAKER) (test 136 meq/L 136-145 wkem=354) POTASSIUM (BEAKER) (test 4.4 meq/L 3.5-5.1 mqxn=586) CHLORIDE (BEAKER) (test 105 meq/L 98-107 kwpz=710) CO2 (BEAKER) (test 23 meq/L 22-29 rkpg=189) BLOOD UREA NITROGEN 51 mg/dL 7-21 (BEAKER) (test svtc=075) CREATININE (BEAKER) (test 1.05 mg/dL 0.57-1.25 alcs=796) GLUCOSE RANDOM (BEAKER) 116 mg/dL 70-105 (test apha=457) CALCIUM (BEAKER) (test 8.5 mg/dL 8.4-10.2 opes=283) EGFR (BEAKER) (test 68 mL/min/1.73 sq m ESTIMATED GFR IS NOT xhtv=2432) ACCURATE CREATININE CLEARANCE IN PREDICTING GLOMERULAR FILTRATION RATE. ESTIMATED GFR IS NOT APPLICABLE FOR DIALYSIS PATIENTS. CBC (HEMOGRAM ONLY)2018-01-31 05:18:00 Test Item Value Reference Range Comments WHITE BLOOD CELL COUNT (BEAKER) (test nrcd=974) 5.5 K/ L 3.5-10.5 RED BLOOD CELL COUNT (BEAKER) (test uzgn=890) 4.26 M/ L 4.63-6.08 HEMOGLOBIN (BEAKER) (test udfg=826) 12.3 GM/DL 13.7-17.5 HEMATOCRIT (BEAKER) (test hgkr=398) 37.8 % 40.1-51.0 MEAN CORPUSCULAR VOLUME (BEAKER) (test cadj=932) 88.7 fL 79.0-92.2 MEAN CORPUSCULAR HEMOGLOBIN (BEAKER) (test 28.9 pg 25.7-32.2 hswd=120) MEAN CORPUSCULAR HEMOGLOBIN CONC (BEAKER) (test 32.5 GM/DL 32.3-36.5 llru=705) RED CELL DISTRIBUTION WIDTH (BEAKER) (test 14.3 % 11.6-14.4 trqa=989) PLATELET COUNT (BEAKER) (test sxig=955) 129 K/CU MM 150-450 MEAN PLATELET VOLUME (BEAKER) (test upxo=428) 10.7 fL 9.4-12.4 NUCLEATED RED BLOOD CELLS (BEAKER) (test 0 /100 WBC 0-0 wlqj=241) POCT-GLUCOSE [id number] 08:10:00 Test Item Value Reference Range Comments POC-GLUCOSE METER (BEAKER) 109 mg/dL 70-110 TESTED AT [facility] [address] [facility] (test kcvo=3974) [facility] [address] [id number] 05:39:00 Test Item Value Reference Range Comments PHOSPHORUS (BEAKER) (test hyon=041) 3.2 mg/dL 2.3-4.7 [id number] 05:39:00 Test Item Value Reference Range Comments MAGNESIUM (BEAKER) (test zudv=426) 2.1 mg/dL 1.6-2.6 BASIC METABOLIC [id number] 05:39:00 Test Item Value Reference Range Comments SODIUM (BEAKER) (test 136 meq/L 136-145 yleg=774) POTASSIUM (BEAKER) (test 4.8 meq/L 3.5-5.1 dytu=774) CHLORIDE (BEAKER) (test 108 meq/L 98-107 lczl=028) CO2 (BEAKER) (test 23 meq/L 22-29 gpum=576) BLOOD UREA NITROGEN 49 mg/dL 7-21 (BEAKER) (test gpvr=311) CREATININE (BEAKER) (test 1.08 mg/dL 0.57-1.25 rrvp=857) GLUCOSE RANDOM (BEAKER) 102 mg/dL 70-105 (test zxrq=687) CALCIUM (BEAKER) (test 8.5 mg/dL 8.4-10.2 roqa=954) EGFR (BEAKER) (test 66 mL/min/1.73 sq m ESTIMATED GFR IS NOT ogqb=7723) ACCURATE CREATININE CLEARANCE IN PREDICTING GLOMERULAR FILTRATION RATE. ESTIMATED GFR IS NOT APPLICABLE FOR DIALYSIS PATIENTS. CBC (HEMOGRAM ONLY)2018-01-30 05:37:00 Test Item Value Reference Range Comments WHITE BLOOD CELL COUNT (BEAKER) (test lilr=405) 5.4 K/ L 3.5-10.5 RED BLOOD CELL COUNT (BEAKER) (test qriw=275) 4.28 M/ L 4.63-6.08 HEMOGLOBIN (BEAKER) (test woxb=272) 12.3 GM/DL 13.7-17.5 HEMATOCRIT (BEAKER) (test vavw=886) 38.5 % 40.1-51.0 MEAN CORPUSCULAR VOLUME (BEAKER) (test jutf=722) 90.0 fL 79.0-92.2 MEAN CORPUSCULAR HEMOGLOBIN (BEAKER) (test 28.7 pg 25.7-32.2 rklm=529) MEAN CORPUSCULAR HEMOGLOBIN CONC (BEAKER) (test 31.9 GM/DL 32.3-36.5 arwe=522) RED CELL DISTRIBUTION WIDTH (BEAKER) (test 14.4 % 11.6-14.4 wfag=041) PLATELET COUNT (BEAKER) (test yhwq=658) 119 K/CU MM 150-450 MEAN PLATELET VOLUME (BEAKER) (test hwnw=855) 10.4 fL 9.4-12.4 NUCLEATED RED BLOOD CELLS (BEAKER) (test 0 /100 WBC 0-0 xrpf=918) POCT-GLUCOSE [id number] 21:31:00 Test Item Value Reference Range Comments POC-GLUCOSE METER (BEAKER) 136 mg/dL 70-110 TESTED AT [facility] [address] [facility] (test fnnf=3697) [facility] [address] [id number] 03:49:00 Test Item Value Reference Range Comments PHOSPHORUS (BEAKER) (test teve=274) 4.2 mg/dL 2.3-4.7 [id number] 03:49:00 Test Item Value Reference Range Comments MAGNESIUM (BEAKER) (test mcfu=379) 2.0 mg/dL 1.6-2.6 BASIC METABOLIC [id number] 03:49:00 Test Item Value Reference Range Comments SODIUM (BEAKER) (test 138 meq/L 136-145 bnad=037) POTASSIUM (BEAKER) (test 4.3 meq/L 3.5-5.1 jeqq=773) CHLORIDE (BEAKER) (test 110 meq/L 98-107 vakz=852) CO2 (BEAKER) (test 19 meq/L 22-29 zkwk=583) BLOOD UREA NITROGEN 47 mg/dL 7-21 (BEAKER) (test rysk=201) CREATININE (BEAKER) (test 1.08 mg/dL 0.57-1.25 rzsi=231) GLUCOSE RANDOM (BEAKER) 138 mg/dL 70-105 (test oexh=555) CALCIUM (BEAKER) (test 8.6 mg/dL 8.4-10.2 qqtv=607) EGFR (BEAKER) (test 66 mL/min/1.73 sq m ESTIMATED GFR IS NOT igyv=8721) ACCURATE CREATININE CLEARANCE IN PREDICTING GLOMERULAR FILTRATION RATE. ESTIMATED GFR IS NOT APPLICABLE FOR DIALYSIS PATIENTS. CBC (HEMOGRAM ONLY)2018-01-29 03:38:00 Test Item Value Reference Range Comments WHITE BLOOD CELL COUNT (BEAKER) (test dzac=418) 5.6 K/ L 3.5-10.5 RED BLOOD CELL COUNT (BEAKER) (test xpsk=800) 4.48 M/ L 4.63-6.08 HEMOGLOBIN (BEAKER) (test tqkq=488) 12.7 GM/DL 13.7-17.5 HEMATOCRIT (BEAKER) (test pwpd=458) 39.8 % 40.1-51.0 MEAN CORPUSCULAR VOLUME (BEAKER) (test btix=865) 88.8 fL 79.0-92.2 MEAN CORPUSCULAR HEMOGLOBIN (BEAKER) (test 28.3 pg 25.7-32.2 pmed=043) MEAN CORPUSCULAR HEMOGLOBIN CONC (BEAKER) (test 31.9 GM/DL 32.3-36.5 vket=274) RED CELL DISTRIBUTION WIDTH (BEAKER) (test 14.3 % 11.6-14.4 kbkr=497) PLATELET COUNT (BEAKER) (test hisd=956) 143 K/CU MM 150-450 MEAN PLATELET VOLUME (BEAKER) (test kzsk=770) 10.3 fL 9.4-12.4 NUCLEATED RED BLOOD CELLS (BEAKER) (test 0 /100 WBC 0-0 zezb=773) [id number] 15:06:00 Test Item Value Reference Range Comments PARTIAL THROMBOPLASTIN TIME (BEAKER) (test 31.2 seconds 22.5-36.0 pbdp=497) BASIC METABOLIC [id number] 15:05:00 Test Item Value Reference Range Comments SODIUM (BEAKER) (test 139 meq/L 136-145 wbyq=008) POTASSIUM (BEAKER) (test 4.5 meq/L 3.5-5.1 bpcl=773) CHLORIDE (BEAKER) (test 113 meq/L 98-107 cloc=055) CO2 (BEAKER) (test 19 meq/L 22-29 fird=130) BLOOD UREA NITROGEN 48 mg/dL 7-21 (BEAKER) (test ydxx=593) CREATININE (BEAKER) (test 1.20 mg/dL 0.57-1.25 bqkd=963) GLUCOSE RANDOM (BEAKER) 133 mg/dL 70-105 (test lmpd=479) CALCIUM (BEAKER) (test 9.0 mg/dL 8.4-10.2 vghq=474) EGFR (BEAKER) (test 58 mL/min/1.73 sq m ESTIMATED GFR IS NOT uskq=7889) ACCURATE CREATININE CLEARANCE IN PREDICTING GLOMERULAR FILTRATION RATE. ESTIMATED GFR IS NOT APPLICABLE FOR DIALYSIS PATIENTS. CBC (HEMOGRAM ONLY)2018-01-28 14:49:00 Test Item Value Reference Range Comments WHITE BLOOD CELL COUNT (BEAKER) (test lymg=634) 8.0 K/ L 3.5-10.5 RED BLOOD CELL COUNT (BEAKER) (test ihhn=487) 4.73 M/ L 4.63-6.08 HEMOGLOBIN (BEAKER) (test bxyx=982) 13.6 GM/DL 13.7-17.5 HEMATOCRIT (BEAKER) (test clew=367) 41.3 % 40.1-51.0 MEAN CORPUSCULAR VOLUME (BEAKER) (test mggu=198) 87.3 fL 79.0-92.2 MEAN CORPUSCULAR HEMOGLOBIN (BEAKER) (test 28.8 pg 25.7-32.2 xizx=633) MEAN CORPUSCULAR HEMOGLOBIN CONC (BEAKER) (test 32.9 GM/DL 32.3-36.5 tdfb=160) RED CELL DISTRIBUTION WIDTH (BEAKER) (test 14.3 % 11.6-14.4 oirp=523) PLATELET COUNT (BEAKER) (test sxvl=561) 146 K/CU MM 150-450 MEAN PLATELET VOLUME (BEAKER) (test nyel=410) 10.1 fL 9.4-12.4 NUCLEATED RED BLOOD CELLS (BEAKER) (test 0 /100 WBC 0-0 jhvq=757) [id number] 12:59:00 Test Item Value Reference Range Comments ACTIVATED CLOTTING TIME 120 sec TESTED AT [place] [address] [facility] (test cmmo=894) [place] [address] [id number] 12:59:00 Test Item Value Reference Range Comments ACTIVATED CLOTTING TIME 230 sec TESTED AT [place] [address] [facility] (test nled=710) [place] [address] [id number] 12:59:00 Test Item Value Reference Range Comments ACTIVATED CLOTTING TIME 257 sec TESTED AT [place] [address] [facility] ([facility] (test vcbz=736) [place] [address] [id number] 12:59:00 Test Item Value Reference Range Comments ACTIVATED CLOTTING TIME 246 sec TESTED AT [facility] [address] (BEAKER) (test kadb=015) [place] [address] [id number] 12:59:00 Test Item Value Reference Range Comments ACTIVATED CLOTTING TIME 263 sec TESTED AT [place] [id number] (BEAKER) (test miyb=892) [place] [address] [id number] 12:59:00 Test Item Value Reference Range Comments ACTIVATED CLOTTING TIME 263 sec TESTED AT [place] [address] [address] (BEAKER) (test keco=790) [place] [address] BLOOD GAS, [id number] 11:14:00 Test Item Value Reference Range Comments PH ARTERIAL (BEAKER) (test vylv=462) 7.41 7.35-7.45 PCO2 ARTERIAL (BEAKER) (test owci=119) 35 mmHg 35-45 PO2 ARTERIAL (BEAKER) (test lxov=275) 170 mmHg 80-90 O2 SATURATION ARTERIAL (BEAKER) (test cxti=487) 99.2 % 96.0-97.0 HCO3 ARTERIAL (BEAKER) (test wbmh=370) 22 mmol/L 21-29 BASE EXCESS ARTERIAL (BEAKER) (test ovno=664) -2.0 mmol/L -2.0-3.0 PATIENT TEMPERATURE (BEAKER) (test jviy=2851) 36.0 C FIO2 (BEAKER) (test synf=3652) 55.0 % GLUCOSE-STAT [id number] 11:13:00 Test Item Value Reference Range Comments GLUCOSE RANDOM (BEAKER) (test wwgw=177) 104 mg/dL 70-110 SODIUM NA-STAT [id number] 11:13:00 Test Item Value Reference Range Comments SODIUM (BEAKER) (test gxbx=967) 137 meq/L 135-148 POTASSIUM-STAT [id number] 11:13:00 Test Item Value Reference Range Comments POTASSIUM (BEAKER) (test ufid=960) 4.2 meq/L 3.6-5.5 HGB/HCT (H&H) - STAT [id number] 11:13:00 Test Item Value Reference Range Comments HEMOGLOBIN (BEAKER) (test ywjl=233) 14.1 g/dL 13.0-16.8 HEMATOCRIT (BEAKER) (test osba=776) 41.0 % 40.0-50.0 CALCIUM, [id number] 11:13:00 Test Item Value Reference Range Comments CALCIUM IONIZED (BEAKER) (test lqrf=314) 1.12 mmol/L 1.12-1.27 PH, BLOOD (BEAKER) (test kkyx=9719) 7.40 GLUCOSE-STAT [id number] 10:14:00 Test Item Value Reference Range Comments GLUCOSE RANDOM (BEAKER) (test qpud=544) 105 mg/dL 70-110 SODIUM NA-STAT [id number] 10:14:00 Test Item Value Reference Range Comments SODIUM (BEAKER) (test tffp=114) 135 meq/L 135-148 POTASSIUM-STAT [id number] 10:14:00 Test Item Value Reference Range Comments POTASSIUM (BEAKER) (test bjsf=705) 4.4 meq/L 3.6-5.5 HGB/HCT (H&H) - STAT [id number] 10:14:00 Test Item Value Reference Range Comments HEMOGLOBIN (BEAKER) (test wwdq=164) 14.5 g/dL 13.0-16.8 HEMATOCRIT (BEAKER) (test egkq=681) 43.0 % 40.0-50.0 CALCIUM, [id number] 10:14:00 Test Item Value Reference Range Comments CALCIUM IONIZED (BEAKER) (test mjfy=719) 1.18 mmol/L 1.12-1.27 PH, BLOOD (BEAKER) (test dfwx=0219) 7.34 BLOOD GAS, [id number] 10:14:00 Test Item Value Reference Range Comments PH ARTERIAL (BEAKER) (test oubx=119) 7.36 7.35-7.45 PCO2 ARTERIAL (BEAKER) (test kfjf=612) 36 mmHg 35-45 PO2 ARTERIAL (BEAKER) (test axxx=662) 293 mmHg 80-90 O2 SATURATION ARTERIAL (BEAKER) (test wvqs=921) 99.7 % 96.0-97.0 HCO3 ARTERIAL (BEAKER) (test smhv=833) 20 mmol/L 21-29 BASE EXCESS ARTERIAL (BEAKER) (test goky=871) -5.3 mmol/L -2.0-3.0 PATIENT TEMPERATURE (BEAKER) (test tpxc=3483) 35.6 C FIO2 (BEAKER) (test olor=1176) 70.0 % SODIUM NA-STAT [id number] 08:32:00 Test Item Value Reference Range Comments SODIUM (BEAKER) (test wsdw=133) 134 meq/L 135-148 CALCIUM, [id number] 08:31:00 Test Item Value Reference Range Comments CALCIUM IONIZED (BEAKER) (test irox=373) 1.07 mmol/L 1.12-1.27 PH, BLOOD (BEAKER) (test dmtb=4874) 7.33 BLOOD GAS, [id number] 08:31:00 Test Item Value Reference Range Comments PH ARTERIAL (BEAKER) (test ohdj=676) 7.36 7.35-7.45 PCO2 ARTERIAL (BEAKER) (test qtjc=349) 36 mmHg 35-45 PO2 ARTERIAL (BEAKER) (test ozwk=932) 187 mmHg 80-90 O2 SATURATION ARTERIAL (BEAKER) (test esft=755) 99.3 % 96.0-97.0 HCO3 ARTERIAL (BEAKER) (test ofow=306) 21 mmol/L 21-29 BASE EXCESS ARTERIAL (BEAKER) (test dmzw=545) -4.9 mmol/L -2.0-3.0 PATIENT TEMPERATURE (BEAKER) (test tanx=8466) 35.0 C FIO2 (BEAKER) (test itdq=0089) 60.0 % GLUCOSE-STAT [id number] 08:30:00 Test Item Value Reference Range Comments GLUCOSE RANDOM (BEAKER) (test qekj=526) 97 mg/dL 70-110 POTASSIUM-STAT [id number] 08:30:00 Test Item Value Reference Range Comments POTASSIUM (BEAKER) (test lehz=232) 4.6 meq/L 3.6-5.5 HGB/HCT (H&H) - STAT [id number] 08:30:00 Test Item Value Reference Range Comments HEMOGLOBIN (BEAKER) (test smui=232) 15.0 g/dL 13.0-16.8 HEMATOCRIT (BEAKER) (test pyhg=749) 44.0 % 40.0-50.0 [id number] 07:27:00 Test Item Value Reference Range Comments BLOOD UREA NITROGEN (BEAKER) (test ysfy=823) 49 mg/dL 7-21 PROTHROMBIN [id number] 06:48:00 Test Item Value Reference Range Comments PROTIME (BEAKER) (test tbsm=599) 14.3 seconds 11.7-14.7 INR (BEAKER) (test zagr=282) 1.1 <=5.9 RECOMMENDED COUMADIN/WARFARIN INR THERAPY RANGESSTANDARD DOSE: 2.0 - 3.0 Includes: PROPHYLAXIS forvenous thrombosis, systemic embolization; TREATMENT for venous thrombosis and/or pulmonary embolus.HIGH RISK: Target INR is 2.5-3.5 for patients with mechanical heart valves.CBC W/PLT COUNT & AUTO [id number] 06:42:00 Test Item Value Reference Range Comments WHITE BLOOD CELL COUNT (BEAKER) (test rbec=069) 4.8 K/ L 3.5-10.5 RED BLOOD CELL COUNT (BEAKER) (test pasq=742) 5.24 M/ L 4.63-6.08 HEMOGLOBIN (BEAKER) (test aaoo=526) 15.1 GM/DL 13.7-17.5 HEMATOCRIT (BEAKER) (test sxay=514) 45.0 % 40.1-51.0 MEAN CORPUSCULAR VOLUME (BEAKER) (test cztk=109) 85.9 fL 79.0-92.2 MEAN CORPUSCULAR HEMOGLOBIN (BEAKER) (test 28.8 pg 25.7-32.2 qssv=519) MEAN CORPUSCULAR HEMOGLOBIN CONC (BEAKER) (test 33.6 GM/DL 32.3-36.5 hpgo=188) RED CELL DISTRIBUTION WIDTH (BEAKER) (test 14.2 % 11.6-14.4 nqkb=163) PLATELET COUNT (BEAKER) (test nqxs=712) 154 K/CU MM 150-450 MEAN PLATELET VOLUME (BEAKER) (test tpcs=150) 10.3 fL 9.4-12.4 NUCLEATED RED BLOOD CELLS (BEAKER) (test 0 /100 WBC 0-0 gouh=562) NEUTROPHILS RELATIVE PERCENT (BEAKER) (test 63 % qzyf=162) LYMPHOCYTES RELATIVE PERCENT (BEAKER) (test 23 % bmbv=740) MONOCYTES RELATIVE PERCENT (BEAKER) (test 7 % jazn=759) EOSINOPHILS RELATIVE PERCENT (BEAKER) (test 6 % qpul=642) BASOPHILS RELATIVE PERCENT (BEAKER) (test 1 % oagt=881) NEUTROPHILS ABSOLUTE COUNT (BEAKER) (test 3.00 K/ L 1.78-5.38 nztq=003) LYMPHOCYTES ABSOLUTE COUNT (BEAKER) (test 1.11 K/ L 1.32-3.57 hunz=709) MONOCYTES ABSOLUTE COUNT (BEAKER) (test 0.33 K/ L 0.30-0.82 sokk=051) EOSINOPHILS ABSOLUTE COUNT (BEAKER) (test 0.29 K/ L 0.04-0.54 kyrd=750) BASOPHILS ABSOLUTE COUNT (BEAKER) (test 0.04 K/ L 0.01-0.08 qekk=852) IMMATURE GRANULOCYTES-RELATIVE PERCENT (BEAKER) 0 % 0-1 (test ljyx=2833) [id number] 11:22:00 Test Item Value Reference Range Comments SODIUM (BEAKER) (test ndal=958) 139 meq/L 136-145 POTASSIUM (BEAKER) (test 4.9 meq/L 3.5-5.1 Specimen slightly hemolyzed qtva=334) CHLORIDE (BEAKER) (test 108 meq/L 98-107 uvzw=151) CO2 (BEAKER) (test qqic=064) 22 meq/L 22-29 [id number] 11:22:00 Test Item Value Reference Range Comments GLUCOSE RANDOM (BEAKER) (test ygxe=902) 102 mg/dL 70-105 BUN AND [id number] 11:22:00 Test Item Value Reference Range Comments BLOOD UREA NITROGEN 55 mg/dL 7-21 (BEAKER) (test ogwz=656) CREATININE (BEAKER) (test 1.29 mg/dL 0.57-1.25 Specimen slightly oonu=074) hemolyzed EGFR (BEAKER) (test 54 mL/min/1.73 sq m ESTIMATED GFR IS NOT igpo=2848) ACCURATE CREATININE CLEARANCE IN PREDICTING GLOMERULAR FILTRATION RATE. ESTIMATED GFR IS NOT APPLICABLE FOR DIALYSIS PATIENTS. [id number] 08:56:00 Test Item Value Reference Range Comments HEMOGLOBIN (BEAKER) (test qigt=371) 15.9 GM/DL 13.7-17.5 BASIC METABOLIC [id number] 01:34:00 Test Item Value Reference Range Comments SODIUM (BEAKER) (test 141 meq/L 136-145 rybx=496) POTASSIUM (BEAKER) (test 4.4 meq/L 3.5-5.1 mymh=659) CHLORIDE (BEAKER) (test 109 meq/L 98-107 bksx=329) CO2 (BEAKER) (test 24 meq/L 22-29 qgam=436) BLOOD UREA NITROGEN 51 mg/dL 7-21 (BEAKER) (test ikpy=377) CREATININE (BEAKER) (test 1.12 mg/dL 0.57-1.25 alzz=788) GLUCOSE RANDOM (BEAKER) 93 mg/dL 70-105 (test qjhm=556) CALCIUM (BEAKER) (test 8.5 mg/dL 8.4-10.2 usre=904) EGFR (BEAKER) (test 63 mL/min/1.73 sq m ESTIMATED GFR IS NOT dwrd=5910) ACCURATE CREATININE CLEARANCE IN PREDICTING GLOMERULAR FILTRATION RATE. ESTIMATED GFR IS NOT APPLICABLE FOR DIALYSIS PATIENTS. [id number] 01:32:00 Test Item Value Reference Range Comments PARTIAL THROMBOPLASTIN TIME (BEAKER) (test 69.3 seconds 22.5-36.0 fgip=435) CBC W/PLT COUNT & AUTO [id number] 01:23:00 Test Item Value Reference Range Comments WHITE BLOOD CELL COUNT (BEAKER) (test fwwb=431) 4.7 K/ L 3.5-10.5 RED BLOOD CELL COUNT (BEAKER) (test wetd=656) 5.17 M/ L 4.63-6.08 HEMOGLOBIN (BEAKER) (test vkon=902) 13.9 GM/DL 13.7-17.5 HEMATOCRIT (BEAKER) (test ayty=715) 43.7 % 40.1-51.0 MEAN CORPUSCULAR VOLUME (BEAKER) (test fwcm=379) 84.5 fL 79.0-92.2 MEAN CORPUSCULAR HEMOGLOBIN (BEAKER) (test 26.9 pg 25.7-32.2 vgri=835) MEAN CORPUSCULAR HEMOGLOBIN CONC (BEAKER) (test 31.8 GM/DL 32.3-36.5 mzyf=399) RED CELL DISTRIBUTION WIDTH (BEAKER) (test 15.7 % 11.6-14.4 vchc=735) PLATELET COUNT (BEAKER) (test zqqq=534) 130 K/CU MM 150-450 MEAN PLATELET VOLUME (BEAKER) (test inpo=713) 10.9 fL 9.4-12.4 NUCLEATED RED BLOOD CELLS (BEAKER) (test 0 /100 WBC 0-0 pfgh=879) NEUTROPHILS RELATIVE PERCENT (BEAKER) (test 59 % dfwd=911) LYMPHOCYTES RELATIVE PERCENT (BEAKER) (test 27 % snjj=052) MONOCYTES RELATIVE PERCENT (BEAKER) (test 8 % unys=321) EOSINOPHILS RELATIVE PERCENT (BEAKER) (test 5 % esym=400) BASOPHILS RELATIVE PERCENT (BEAKER) (test 0 % bcru=631) NEUTROPHILS ABSOLUTE COUNT (BEAKER) (test 2.73 K/ L 1.78-5.38 jjrn=088) LYMPHOCYTES ABSOLUTE COUNT (BEAKER) (test 1.26 K/ L 1.32-3.57 tobq=742) MONOCYTES ABSOLUTE COUNT (BEAKER) (test 0.37 K/ L 0.30-0.82 kohb=103) EOSINOPHILS ABSOLUTE COUNT (BEAKER) (test 0.25 K/ L 0.04-0.54 dvww=351) BASOPHILS ABSOLUTE COUNT (BEAKER) (test 0.02 K/ L 0.01-0.08 ztfy=921) IMMATURE GRANULOCYTES-RELATIVE PERCENT (BEAKER) 0 % 0-1 (test cxsh=6231) [id number] 04:46:00 Test Item Value Reference Range Comments PROTIME (BEAKER) (test pybz=579) 14.2 seconds 11.7-14.7 INR (BEAKER) (test cpeq=864) 1.1 <=5.9 PARTIAL THROMBOPLASTIN TIME (BEAKER) (test 27.9 seconds 22.5-36.0 zuhb=694) RECOMMENDED COUMADIN/WARFARIN INR THERAPY RANGESSTANDARD DOSE: 2.0 - 3.0 Includes: PROPHYLAXIS forvenous thrombosis, systemic embolization; TREATMENT for venous thrombosis and/or pulmonary embolus.HIGH RISK: Target INR is 2.5-3.5 for patients with mechanical heart valves.BASIC METABOLIC [id number] 02:31: 00 Test Item Value Reference Range Comments SODIUM (BEAKER) (test 140 meq/L 136-145 gcju=242) POTASSIUM (BEAKER) (test 4.7 meq/L 3.5-5.1 wrzk=408) CHLORIDE (BEAKER) (test 106 meq/L 98-107 tdbx=172) CO2 (BEAKER) (test 27 meq/L 22-29 ciyl=771) BLOOD UREA NITROGEN 52 mg/dL 7-21 (BEAKER) (test kamk=412) CREATININE (BEAKER) (test 1.30 mg/dL 0.57-1.25 skmu=388) GLUCOSE RANDOM (BEAKER) 91 mg/dL 70-105 (test jvel=436) CALCIUM (BEAKER) (test 9.0 mg/dL 8.4-10.2 oyio=996) EGFR (BEAKER) (test 53 mL/min/1.73 sq m ESTIMATED GFR IS NOT sgch=9384) ACCURATE CREATININE CLEARANCE IN PREDICTING GLOMERULAR FILTRATION RATE. ESTIMATED GFR IS NOT APPLICABLE FOR DIALYSIS PATIENTS. CBC W/PLT COUNT & AUTO [id number] 02:17:00 Test Item Value Reference Range Comments WHITE BLOOD CELL COUNT (BEAKER) (test dqca=067) 5.4 K/ L 3.5-10.5 RED BLOOD CELL COUNT (BEAKER) (test fudp=404) 5.32 M/ L 4.63-6.08 HEMOGLOBIN (BEAKER) (test cteh=790) 14.6 GM/DL 13.7-17.5 HEMATOCRIT (BEAKER) (test wjez=792) 45.6 % 40.1-51.0 MEAN CORPUSCULAR VOLUME (BEAKER) (test snby=823) 85.7 fL 79.0-92.2 MEAN CORPUSCULAR HEMOGLOBIN (BEAKER) (test 27.4 pg 25.7-32.2 baoz=131) MEAN CORPUSCULAR HEMOGLOBIN CONC (BEAKER) (test 32.0 GM/DL 32.3-36.5 pkzb=398) RED CELL DISTRIBUTION WIDTH (BEAKER) (test 15.9 % 11.6-14.4 umes=222) PLATELET COUNT (BEAKER) (test uvhc=426) 140 K/CU MM 150-450 MEAN PLATELET VOLUME (BEAKER) (test soau=981) 10.6 fL 9.4-12.4 NUCLEATED RED BLOOD CELLS (BEAKER) (test 0 /100 WBC 0-0 hkzf=425) NEUTROPHILS RELATIVE PERCENT (BEAKER) (test 55 % obwk=860) LYMPHOCYTES RELATIVE PERCENT (BEAKER) (test 28 % truc=848) MONOCYTES RELATIVE PERCENT (BEAKER) (test 9 % lrfl=397) EOSINOPHILS RELATIVE PERCENT (BEAKER) (test 8 % ifcl=330) BASOPHILS RELATIVE PERCENT (BEAKER) (test 1 % jgkn=212) NEUTROPHILS ABSOLUTE COUNT (BEAKER) (test 2.97 K/ L 1.78-5.38 ajct=661) LYMPHOCYTES ABSOLUTE COUNT (BEAKER) (test 1.49 K/ L 1.32-3.57 xxvi=413) MONOCYTES ABSOLUTE COUNT (BEAKER) (test 0.51 K/ L 0.30-0.82 erkw=836) EOSINOPHILS ABSOLUTE COUNT (BEAKER) (test 0.41 K/ L 0.04-0.54 xsjm=587) BASOPHILS ABSOLUTE COUNT (BEAKER) (test 0.03 K/ L 0.01-0.08 mqkq=382) IMMATURE GRANULOCYTES-RELATIVE PERCENT (BEAKER) 0 % 0-1 (test vxxt=5071) CBC W/PLT COUNT & AUTO [id number] 07:53:00 Test Item Value Reference Range Comments WHITE BLOOD CELL COUNT (BEAKER) (test shfn=227) 5.6 K/ L 4.0-10.0 RED BLOOD CELL COUNT (BEAKER) (test nawh=027) 4.50 M/ L 4.20-5.80 HEMOGLOBIN (BEAKER) (test fujh=443) 13.3 GM/DL 13.0-16.8 HEMATOCRIT (BEAKER) (test hdrp=638) 40.0 % 40.0-50.0 MEAN CORPUSCULAR VOLUME (BEAKER) (test piks=302) 88.8 fL 82.0-98.0 MEAN CORPUSCULAR HEMOGLOBIN (BEAKER) (test 29.6 pg 27.0-33.0 ushk=303) MEAN CORPUSCULAR HEMOGLOBIN CONC (BEAKER) (test 33.3 GM/DL 32.0-36.0 fzkm=644) RED CELL DISTRIBUTION WIDTH (BEAKER) (test 15.7 % 10.3-14.2 efgt=812) PLATELET COUNT (BEAKER) (test yvdj=240) 136 K/CU MM 150-430 MEAN PLATELET VOLUME (BEAKER) (test omdu=906) 8.2 fL 6.5-10.5 NUCLEATED RED BLOOD CELLS (BEAKER) (test 0 /100 WBC 0-0 lydb=576) NEUTROPHILS RELATIVE PERCENT (BEAKER) (test 58 % mtrg=548) LYMPHOCYTES RELATIVE PERCENT (BEAKER) (test 21 % kplp=057) MONOCYTES RELATIVE PERCENT (BEAKER) (test 7 % bplq=534) EOSINOPHILS RELATIVE PERCENT (BEAKER) (test 14 % tvac=905) BASOPHILS RELATIVE PERCENT (BEAKER) (test 1 % kinw=456) NEUTROPHILS ABSOLUTE COUNT (BEAKER) (test 3.28 K/ L 1.80-8.00 szga=019) LYMPHOCYTES ABSOLUTE COUNT (BEAKER) (test 1.18 K/ L 1.48-4.50 ixyh=998) MONOCYTES ABSOLUTE COUNT (BEAKER) (test 0.37 K/ L 0.00-1.30 sast=318) EOSINOPHILS ABSOLUTE COUNT (BEAKER) (test 0.78 K/ L 0.00-0.50 ixbj=440) BASOPHILS ABSOLUTE COUNT (BEAKER) (test 0.03 K/ L 0.00-0.20 avgr=341) 0.00B-TYPE NATRIURETIC FACTOR (BNP)2017-01-31 07:27:00 Test Item Value Reference Range Comments B-TYPE NATRIURETIC PEPTIDE (BEAKER) (test fidw=529) 46 pg/mL 0-100 [id number] 07:22:00 Test Item Value Reference Range Comments PHOSPHORUS (BEAKER) (test gcwd=068) 2.8 mg/dL 2.3-4.7 [id number] 07:22:00 Test Item Value Reference Range Comments MAGNESIUM (BEAKER) (test lckf=908) 1.9 mg/dL 1.6-2.6 BASIC METABOLIC [id number] 07:22:00 Test Item Value Reference Range Comments SODIUM (BEAKER) (test 137 meq/L 136-145 pocy=892) POTASSIUM (BEAKER) (test 4.4 meq/L 3.5-5.1 hvip=043) CHLORIDE (BEAKER) (test 111 meq/L 98-107 cwjl=961) CO2 (BEAKER) (test 20 meq/L 22-29 dbyi=491) BLOOD UREA NITROGEN 60 mg/dL 7-21 (BEAKER) (test qfbn=421) CREATININE (BEAKER) (test 1.15 mg/dL 0.57-1.25 rjzl=273) GLUCOSE RANDOM (BEAKER) 83 mg/dL 70-105 (test wcsb=859) CALCIUM (BEAKER) (test 8.1 mg/dL 8.4-10.2 iqpq=611) EGFR (BEAKER) (test 62 mL/min/1.73 sq m ESTIMATED GFR IS NOT vopc=8399) ACCURATE CREATININE CLEARANCE IN PREDICTING GLOMERULAR FILTRATION RATE. ESTIMATED GFR IS NOT APPLICABLE FOR DIALYSIS PATIENTS. CALCIUM, [id number] 07:05:00 Test Item Value Reference Range Comments CALCIUM IONIZED (BEAKER) (test rgbp=178) 0.90 mmol/L 1.12-1.27 PH, BLOOD (BEAKER) (test qdyr=7373) 7.42 CBC W/PLT COUNT & AUTO [id number] 08:13:00 Test Item Value Reference Range Comments WHITE BLOOD CELL COUNT (BEAKER) (test mder=929) 6.2 K/ L 4.0-10.0 RED BLOOD CELL COUNT (BEAKER) (test mazg=235) 4.72 M/ L 4.20-5.80 HEMOGLOBIN (BEAKER) (test ghpl=430) 14.5 GM/DL 13.0-16.8 HEMATOCRIT (BEAKER) (test euvb=654) 42.1 % 40.0-50.0 MEAN CORPUSCULAR VOLUME (BEAKER) (test wsmy=231) 89.1 fL 82.0-98.0 MEAN CORPUSCULAR HEMOGLOBIN (BEAKER) (test 30.7 pg 27.0-33.0 mayp=266) MEAN CORPUSCULAR HEMOGLOBIN CONC (BEAKER) (test 34.4 GM/DL 32.0-36.0 qnia=238) RED CELL DISTRIBUTION WIDTH (BEAKER) (test 15.7 % 10.3-14.2 fqgs=155) PLATELET COUNT (BEAKER) (test eybv=759) 134 K/CU MM 150-430 MEAN PLATELET VOLUME (BEAKER) (test wjkq=340) 8.2 fL 6.5-10.5 NUCLEATED RED BLOOD CELLS (BEAKER) (test 0 /100 WBC 0-0 sngy=650) NEUTROPHILS RELATIVE PERCENT (BEAKER) (test 50 % ilfi=264) LYMPHOCYTES RELATIVE PERCENT (BEAKER) (test 28 % wjvu=206) MONOCYTES RELATIVE PERCENT (BEAKER) (test 6 % eqbq=754) EOSINOPHILS RELATIVE PERCENT (BEAKER) (test 15 % gmsa=924) BASOPHILS RELATIVE PERCENT (BEAKER) (test 0 % amwx=511) NEUTROPHILS ABSOLUTE COUNT (BEAKER) (test 3.09 K/ L 1.80-8.00 ipdh=051) LYMPHOCYTES ABSOLUTE COUNT (BEAKER) (test 1.74 K/ L 1.48-4.50 vhnu=632) MONOCYTES ABSOLUTE COUNT (BEAKER) (test 0.39 K/ L 0.00-1.30 zjpq=796) EOSINOPHILS ABSOLUTE COUNT (BEAKER) (test 0.94 K/ L 0.00-0.50 adlu=824) BASOPHILS ABSOLUTE COUNT (BEAKER) (test 0.02 K/ L 0.00-0.20 tkwo=697) CBC (HEMOGRAM ONLY)2017-01-30 08:07:00 Test Item Value Reference Range Comments WHITE BLOOD CELL COUNT (BEAKER) (test egex=164) 6.2 K/ L 4.0-10.0 RED BLOOD CELL COUNT (BEAKER) (test zeqw=739) 4.72 M/ L 4.20-5.80 HEMOGLOBIN (BEAKER) (test rltl=316) 14.5 GM/DL 13.0-16.8 HEMATOCRIT (BEAKER) (test fyxp=468) 42.1 % 40.0-50.0 MEAN CORPUSCULAR VOLUME (BEAKER) (test ohme=632) 89.1 fL 82.0-98.0 MEAN CORPUSCULAR HEMOGLOBIN (BEAKER) (test 30.7 pg 27.0-33.0 cxwq=372) MEAN CORPUSCULAR HEMOGLOBIN CONC (BEAKER) (test 34.4 GM/DL 32.0-36.0 uwuj=225) RED CELL DISTRIBUTION WIDTH (BEAKER) (test 15.7 % 10.3-14.2 punk=202) PLATELET COUNT (BEAKER) (test ptnt=507) 134 K/CU MM 150-430 MEAN PLATELET VOLUME (BEAKER) (test ynsc=229) 8.2 fL 6.5-10.5 NUCLEATED RED BLOOD CELLS (BEAKER) (test 0 /100 WBC 0-0 ugrw=184) 0.00BASIC METABOLIC [id number] 06:38:00 Test Item Value Reference Range Comments SODIUM (BEAKER) (test 134 meq/L 136-145 zcjp=116) POTASSIUM (BEAKER) (test 4.8 meq/L 3.5-5.1 rvde=050) CHLORIDE (BEAKER) (test 108 meq/L 98-107 mfjt=879) CO2 (BEAKER) (test 19 meq/L 22-29 wjtw=677) BLOOD UREA NITROGEN 70 mg/dL 7-21 (BEAKER) (test wjum=792) CREATININE (BEAKER) (test 1.52 mg/dL 0.57-1.25 jige=601) GLUCOSE RANDOM (BEAKER) 87 mg/dL 70-105 (test fgxm=053) CALCIUM (BEAKER) (test 8.3 mg/dL 8.4-10.2 fcwr=183) EGFR (BEAKER) (test 45 mL/min/1.73 sq m ESTIMATED GFR IS NOT ctbb=8721) ACCURATE CREATININE CLEARANCE IN PREDICTING GLOMERULAR FILTRATION RATE. ESTIMATED GFR IS NOT APPLICABLE FOR DIALYSIS PATIENTS. CREATINE KINASE (CK)2017-01-30 06:38:00 Test Item Value Reference Range Comments CREATINE KINASE TOTAL (BEAKER) (test ovge=594) 65 U/L 29-200 [id number] 06:37:00 Test Item Value Reference Range Comments PHOSPHORUS (BEAKER) (test faba=067) 3.8 mg/dL 2.3-4.7 [id number] 06:37:00 Test Item Value Reference Range Comments MAGNESIUM (BEAKER) (test gics=336) 2.1 mg/dL 1.6-2.6 B-TYPE NATRIURETIC FACTOR (BNP)2017-01-30 06:28:00 Test Item Value Reference Range Comments B-TYPE NATRIURETIC PEPTIDE (BEAKER) (test oglk=509) 36 pg/mL 0-100 [id number] 06:16:00 Test Item Value Reference Range Comments PARTIAL THROMBOPLASTIN TIME (BEAKER) (test 152.1 seconds 22.5-36.0 ugtk=762) CALCIUM, [id number] 06:12:00 Test Item Value Reference Range Comments CALCIUM IONIZED (BEAKER) (test rrhq=033) 1.09 mmol/L 1.12-1.27 PH, BLOOD (BEAKER) (test nshm=1552) 7.25 [id number] 23:50:00 Test Item Value Reference Range Comments PARTIAL THROMBOPLASTIN TIME (BEAKER) (test 87.0 seconds 22.5-36.0 gfvq=693) [id number] 15:04:00 Test Item Value Reference Range Comments PARTIAL THROMBOPLASTIN TIME (BEAKER) (test 43.2 seconds 22.5-36.0 uuqm=524) [id number] 12:41:00 Test Item Value Reference Range Comments PARTIAL THROMBOPLASTIN TIME (BEAKER) (test 192.4 seconds 22.5-36.0 uboa=124) Prior to initiating heparinPLATELET [id number] 12:21:00 Test Item Value Reference Range Comments PLATELET COUNT (BEAKER) (test iknn=312) 155 K/CU MM 150-430 BASIC METABOLIC [id number] 09:42:00 Test Item Value Reference Range Comments SODIUM (BEAKER) (test 132 meq/L 136-145 obbl=471) POTASSIUM (BEAKER) (test 4.8 meq/L 3.5-5.1 lzsv=979) CHLORIDE (BEAKER) (test 106 meq/L 98-107 gici=317) CO2 (BEAKER) (test 19 meq/L 22-29 arbb=721) BLOOD UREA NITROGEN 65 mg/dL 7-21 (BEAKER) (test bimw=559) CREATININE (BEAKER) (test 1.29 mg/dL 0.57-1.25 bphg=882) GLUCOSE RANDOM (BEAKER) 88 mg/dL 70-105 (test bgrm=254) CALCIUM (BEAKER) (test 8.9 mg/dL 8.4-10.2 qaxa=817) EGFR (BEAKER) (test 54 mL/min/1.73 sq m ESTIMATED GFR IS NOT lebv=7983) ACCURATE CREATININE CLEARANCE IN PREDICTING GLOMERULAR FILTRATION RATE. ESTIMATED GFR IS NOT APPLICABLE FOR DIALYSIS PATIENTS. [id number] 09:30:00 Test Item Value Reference Range Comments PROTIME (BEAKER) (test rxzy=452) 15.0 seconds 11.7-14.7 INR (BEAKER) (test puad=572) 1.2 <=5.9 PARTIAL THROMBOPLASTIN TIME (BEAKER) (test 29.6 seconds 22.5-36.0 fvmm=326) RECOMMENDED COUMADIN/WARFARIN INR THERAPY RANGESSTANDARD DOSE: 2.0 - 3.0 Includes: PROPHYLAXIS forvenous thrombosis, systemic embolization; TREATMENT for venous thrombosis and/or pulmonary embolus.HIGH RISK: Target INR is 2.5-3.5 for patients with mechanical heart valves.CBC W/PLT COUNT & AUTO [id number] 09:26:00 Test Item Value Reference Range Comments WHITE BLOOD CELL COUNT (BEAKER) (test znte=951) 6.0 K/ L 4.0-10.0 RED BLOOD CELL COUNT (BEAKER) (test bieu=473) 4.83 M/ L 4.20-5.80 HEMOGLOBIN (BEAKER) (test ykij=057) 14.3 GM/DL 13.0-16.8 HEMATOCRIT (BEAKER) (test bmlm=004) 42.2 % 40.0-50.0 MEAN CORPUSCULAR VOLUME (BEAKER) (test scut=179) 87.5 fL 82.0-98.0 MEAN CORPUSCULAR HEMOGLOBIN (BEAKER) (test 29.7 pg 27.0-33.0 ecyf=730) MEAN CORPUSCULAR HEMOGLOBIN CONC (BEAKER) (test 33.9 GM/DL 32.0-36.0 hhlr=182) RED CELL DISTRIBUTION WIDTH (BEAKER) (test 15.9 % 10.3-14.2 zjwa=678) PLATELET COUNT (BEAKER) (test qbwj=054) 141 K/CU MM 150-430 MEAN PLATELET VOLUME (BEAKER) (test hrqa=370) 8.0 fL 6.5-10.5 NUCLEATED RED BLOOD CELLS (BEAKER) (test 0 /100 WBC 0-0 xuxf=027) NEUTROPHILS RELATIVE PERCENT (BEAKER) (test 57 % somh=927) LYMPHOCYTES RELATIVE PERCENT (BEAKER) (test 20 % vbpc=156) MONOCYTES RELATIVE PERCENT (BEAKER) (test 6 % vjyj=326) EOSINOPHILS RELATIVE PERCENT (BEAKER) (test 17 % rghb=295) BASOPHILS RELATIVE PERCENT (BEAKER) (test 0 % tuzy=123) NEUTROPHILS ABSOLUTE COUNT (BEAKER) (test 3.40 K/ L 1.80-8.00 vdab=481) LYMPHOCYTES ABSOLUTE COUNT (BEAKER) (test 1.21 K/ L 1.48-4.50 cfmg=329) MONOCYTES ABSOLUTE COUNT (BEAKER) (test 0.37 K/ L 0.00-1.30 wkkh=353) EOSINOPHILS ABSOLUTE COUNT (BEAKER) (test 1.01 K/ L 0.00-0.50 cvbq=563) BASOPHILS ABSOLUTE COUNT (BEAKER) (test 0.02 K/ L 0.00-0.20 dmqy=008) [id number] 18:10:00 Test Item Value Reference Range Comments ACTIVATED CLOTTING TIME 202 sec TESTED AT [facility] [address] (BEAKER) (test dkdm=825) [facility] [address] BLOOD [id number] 00:00:00 Test Item Value Reference Range Comments CULTURE (BEAKER) (test eijs=9735) No growth in 5 days URINE [id number] 11:38:00 Test Item Value Reference Range Comments CULTURE (BEAKER) (test yohf=3673) No growth [id number] 07:05:00 Test Item Value Reference Range Comments PHOSPHORUS (BEAKER) (test wgch=677) 3.2 mg/dL 2.3-4.7 [id number] 07:05:00 Test Item Value Reference Range Comments MAGNESIUM (BEAKER) (test xutx=531) 2.3 mg/dL 1.6-2.6 COMPREHENSIVE METABOLIC [id number] 07:05:00 Test Item Value Reference Range Comments TOTAL PROTEIN (BEAKER) 6.2 gm/dL 6.0-8.3 (test wxrd=806) ALBUMIN (BEAKER) (test 3.6 g/dL 3.5-5.0 wmnh=6343) ALKALINE PHOSPHATASE 83 U/L 40-150 (BEAKER) (test xcqs=072) BILIRUBIN TOTAL (BEAKER) 0.5 mg/dL 0.2-1.2 (test iawt=683) SODIUM (BEAKER) (test 135 meq/L 136-145 yftc=723) POTASSIUM (BEAKER) (test 4.2 meq/L 3.5-5.1 psme=246) CHLORIDE (BEAKER) (test 107 meq/L 98-107 bshj=267) CO2 (BEAKER) (test 20 meq/L 22-29 ykeg=419) BLOOD UREA NITROGEN 81 mg/dL 7-21 (BEAKER) (test fubv=112) CREATININE (BEAKER) (test 1.31 mg/dL 0.57-1.25 npfl=121) GLUCOSE RANDOM (BEAKER) 85 mg/dL 70-105 (test cytu=350) CALCIUM (BEAKER) (test 8.3 mg/dL 8.4-10.2 xyvq=916) AST (SGOT) (BEAKER) (test 28 U/L 5-34 htkk=031) ALT (SGPT) (BEAKER) (test 58 U/L 6-55 mmac=749) EGFR (BEAKER) (test 53 mL/min/1.73 sq m ESTIMATED GFR IS NOT vqxk=9422) ACCURATE CREATININE CLEARANCE IN PREDICTING GLOMERULAR FILTRATION RATE. ESTIMATED GFR IS NOT APPLICABLE FOR DIALYSIS PATIENTS. CALCIUM, [id number] 06:43:00 Test Item Value Reference Range Comments CALCIUM IONIZED (BEAKER) (test kjkr=340) 1.08 mmol/L 1.12-1.27 PH, BLOOD (BEAKER) (test ikyr=9456) 7.35 CBC W/PLT COUNT & AUTO [id number] 06:36:00 Test Item Value Reference Range Comments WHITE BLOOD CELL COUNT (BEAKER) (test coeh=085) 4.6 K/ L 4.0-10.0 RED BLOOD CELL COUNT (BEAKER) (test tava=957) 4.96 M/ L 4.20-5.80 HEMOGLOBIN (BEAKER) (test qlch=439) 14.3 GM/DL 13.0-16.8 HEMATOCRIT (BEAKER) (test fzgd=619) 43.6 % 40.0-50.0 MEAN CORPUSCULAR VOLUME (BEAKER) (test vqxt=919) 87.9 fL 82.0-98.0 MEAN CORPUSCULAR HEMOGLOBIN (BEAKER) (test 28.8 pg 27.0-33.0 xixf=737) MEAN CORPUSCULAR HEMOGLOBIN CONC (BEAKER) (test 32.7 GM/DL 32.0-36.0 fcmc=814) RED CELL DISTRIBUTION WIDTH (BEAKER) (test 14.7 % 10.3-14.2 llbl=188) PLATELET COUNT (BEAKER) (test ovdg=721) 148 K/CU MM 150-430 MEAN PLATELET VOLUME (BEAKER) (test ryob=209) 7.7 fL 6.5-10.5 NUCLEATED RED BLOOD CELLS (BEAKER) (test 0 /100 WBC 0-0 ffcv=953) NEUTROPHILS RELATIVE PERCENT (BEAKER) (test 53 % leow=777) LYMPHOCYTES RELATIVE PERCENT (BEAKER) (test 32 % mzoy=772) MONOCYTES RELATIVE PERCENT (BEAKER) (test 8 % aazv=722) EOSINOPHILS RELATIVE PERCENT (BEAKER) (test 7 % fhij=686) BASOPHILS RELATIVE PERCENT (BEAKER) (test 1 % sizb=465) NEUTROPHILS ABSOLUTE COUNT (BEAKER) (test 2.43 K/ L 1.80-8.00 fokd=886) LYMPHOCYTES ABSOLUTE COUNT (BEAKER) (test 1.46 K/ L 1.48-4.50 sxtq=709) MONOCYTES ABSOLUTE COUNT (BEAKER) (test 0.36 K/ L 0.00-1.30 zthc=922) EOSINOPHILS ABSOLUTE COUNT (BEAKER) (test 0.31 K/ L 0.00-0.50 ydzu=843) BASOPHILS ABSOLUTE COUNT (BEAKER) (test 0.03 K/ L 0.00-0.20 sjmp=116) [id number] 05:54:00 Test Item Value Reference Range Comments PHOSPHORUS (BEAKER) (test nvko=869) 3.8 mg/dL 2.3-4.7 [id number] 05:54:00 Test Item Value Reference Range Comments MAGNESIUM (BEAKER) (test pkfh=534) 2.5 mg/dL 1.6-2.6 BASIC METABOLIC [id number] 05:54:00 Test Item Value Reference Range Comments SODIUM (BEAKER) (test 132 meq/L 136-145 mpkl=134) POTASSIUM (BEAKER) (test 4.6 meq/L 3.5-5.1 mkya=354) CHLORIDE (BEAKER) (test 106 meq/L 98-107 cviq=329) CO2 (BEAKER) (test 18 meq/L 22-29 lrxf=930) BLOOD UREA NITROGEN 89 mg/dL 7-21 (BEAKER) (test tjaf=953) CREATININE (BEAKER) (test 1.34 mg/dL 0.57-1.25 asic=577) GLUCOSE RANDOM (BEAKER) 98 mg/dL 70-105 (test ujso=146) CALCIUM (BEAKER) (test 8.3 mg/dL 8.4-10.2 tabm=254) EGFR (BEAKER) (test 52 mL/min/1.73 sq m ESTIMATED GFR IS NOT iqbx=5713) ACCURATE CREATININE CLEARANCE IN PREDICTING GLOMERULAR FILTRATION RATE. ESTIMATED GFR IS NOT APPLICABLE FOR DIALYSIS PATIENTS. CREATINE KINASE (CK)2017-01-17 05:54:00 Test Item Value Reference Range Comments CREATINE KINASE TOTAL (BEAKER) (test zkyp=760) 89 U/L 29-200 CALCIUM, [id number] 05:29:00 Test Item Value Reference Range Comments CALCIUM IONIZED (BEAKER) (test swee=309) 1.02 mmol/L 1.12-1.27 PH, BLOOD (BEAKER) (test vsfj=2103) 7.33 EOSINOPHIL SMEAR, [id number] 16:25:00 Test Item Value Reference Range Comments EOSINOPHIL SMEAR, URINE (BEAKER) Rare EOS=less than 5% WBCs No EOS seen (test jqjl=2719) seen are EOS BASIC METABOLIC [id number] 16:09:00 Test Item Value Reference Range Comments SODIUM (BEAKER) (test 132 meq/L 136-145 mqnj=928) POTASSIUM (BEAKER) (test 5.2 meq/L 3.5-5.1 werm=149) CHLORIDE (BEAKER) (test 104 meq/L 98-107 wfhd=790) CO2 (BEAKER) (test 19 meq/L 22-29 lmzv=522) BLOOD UREA NITROGEN 90 mg/dL 7-21 (BEAKER) (test jkel=286) CREATININE (BEAKER) (test 1.56 mg/dL 0.57-1.25 yufh=408) GLUCOSE RANDOM (BEAKER) 136 mg/dL 70-105 (test tlwp=514) CALCIUM (BEAKER) (test 9.0 mg/dL 8.4-10.2 mltn=612) EGFR (BEAKER) (test 43 mL/min/1.73 sq m ESTIMATED GFR IS NOT surv=1721) ACCURATE CREATININE CLEARANCE IN PREDICTING GLOMERULAR FILTRATION RATE. ESTIMATED GFR IS NOT APPLICABLE FOR DIALYSIS PATIENTS. OSMOLALITY, [id number] 13:18:00 Test Item Value Reference Range Comments OSMOLALITY URINE (BEAKER) (test pcxz=461) 379 mOsm/kg 40-1400 HEMOGLOBIN [id number] 09:05:00 Test Item Value Reference Range Comments HEMOGLOBIN A1C (BEAKER) (test wpch=205) 5.8 % 4.3-6.1 CBC W/PLT COUNT & AUTO [id number] 07:12:00 Test Item Value Reference Range Comments WHITE BLOOD CELL COUNT (BEAKER) (test ggiy=991) 6.4 K/ L 4.0-10.0 RED BLOOD CELL COUNT (BEAKER) (test lrqr=111) 5.33 M/ L 4.20-5.80 HEMOGLOBIN (BEAKER) (test qnmn=945) 15.4 GM/DL 13.0-16.8 HEMATOCRIT (BEAKER) (test chvd=690) 47.1 % 40.0-50.0 MEAN CORPUSCULAR VOLUME (BEAKER) (test dykn=230) 88.5 fL 82.0-98.0 MEAN CORPUSCULAR HEMOGLOBIN (BEAKER) (test 29.0 pg 27.0-33.0 vbyr=651) MEAN CORPUSCULAR HEMOGLOBIN CONC (BEAKER) (test 32.8 GM/DL 32.0-36.0 ddly=089) RED CELL DISTRIBUTION WIDTH (BEAKER) (test 15.0 % 10.3-14.2 lvjz=363) PLATELET COUNT (BEAKER) (test sdxd=962) 157 K/CU MM 150-430 MEAN PLATELET VOLUME (BEAKER) (test pyrd=962) 8.0 fL 6.5-10.5 NUCLEATED RED BLOOD CELLS (BEAKER) (test 0 /100 WBC 0-0 ovvy=443) NEUTROPHILS RELATIVE PERCENT (BEAKER) (test 59 % lixq=485) LYMPHOCYTES RELATIVE PERCENT (BEAKER) (test 27 % frzi=276) MONOCYTES RELATIVE PERCENT (BEAKER) (test 8 % uaqe=949) EOSINOPHILS RELATIVE PERCENT (BEAKER) (test 5 % agse=797) BASOPHILS RELATIVE PERCENT (BEAKER) (test 1 % ttne=795) NEUTROPHILS ABSOLUTE COUNT (BEAKER) (test 3.79 K/ L 1.80-8.00 buyg=017) LYMPHOCYTES ABSOLUTE COUNT (BEAKER) (test 1.71 K/ L 1.48-4.50 wrmi=432) MONOCYTES ABSOLUTE COUNT (BEAKER) (test 0.54 K/ L 0.00-1.30 wufn=976) EOSINOPHILS ABSOLUTE COUNT (BEAKER) (test 0.31 K/ L 0.00-0.50 ycxo=484) BASOPHILS ABSOLUTE COUNT (BEAKER) (test 0.06 K/ L 0.00-0.20 upzt=190) 0.00BASIC METABOLIC [id number] 06:43:00 Test Item Value Reference Range Comments SODIUM (BEAKER) (test 132 meq/L 136-145 sdrk=398) POTASSIUM (BEAKER) (test 5.2 meq/L 3.5-5.1 Specimen slightly bstk=500) hemolyzed CHLORIDE (BEAKER) (test 107 meq/L 98-107 iutd=490) CO2 (BEAKER) (test 16 meq/L 22-29 axcl=202) BLOOD UREA NITROGEN 90 mg/dL 7-21 (BEAKER) (test qtiz=677) CREATININE (BEAKER) (test 1.45 mg/dL 0.57-1.25 Specimen slightly tzlz=686) hemolyzed GLUCOSE RANDOM (BEAKER) 78 mg/dL 70-105 (test naoa=474) CALCIUM (BEAKER) (test 8.7 mg/dL 8.4-10.2 eopg=040) EGFR (BEAKER) (test 47 mL/min/1.73 sq m ESTIMATED GFR IS NOT lazc=7071) ACCURATE CREATININE CLEARANCE IN PREDICTING GLOMERULAR FILTRATION RATE. ESTIMATED GFR IS NOT APPLICABLE FOR DIALYSIS PATIENTS. URINALYSIS W/ [id number] 03:12:00 Test Item Value Reference Range Comments COLOR (BEAKER) (test wzuv=386) Light Yellow CLARITY (BEAKER) (test dwva=564) Clear SPECIFIC GRAVITY UA (BEAKER) (test bryx=731) 1.009 1.001-1.035 PH UA (BEAKER) (test rwlg=763) 6.5 5.0-8.0 PROTEIN UA (BEAKER) (test twtb=318) Negative Negative GLUCOSE UA (BEAKER) (test jwnu=251) Negative Negative KETONES UA (BEAKER) (test oirq=125) Negative Negative BILIRUBIN UA (BEAKER) (test gere=653) Negative Negative BLOOD UA (BEAKER) (test yjmk=112) Small Negative NITRITE UA (BEAKER) (test dgxb=727) Negative Negative LEUKOCYTE ESTERASE UA (BEAKER) (test bwxi=632) Negative Negative UROBILINOGEN UA (BEAKER) (test syua=994) 0.2 mg/dL 0.2-1.0 RBC UA (BEAKER) (test tdyl=970) 28 /HPF WBC UA (BEAKER) (test wxjp=716) 54 /HPF MUCUS (BEAKER) (test dxlm=8351) Rare SOURCE(BEAKER) (test yoxv=3439) Urine, Voided CHLORIDE, RANDOM [id number] 01:29:00 Test Item Value Reference Range Comments CHLORIDE URINE (BEAKER) (test vndd=662) 62 meq/L Reference Range: No NormalsCREATININE, RANDOM [id number] 01:29:00 Test Item Value Reference Range Comments CREATININE URINE (BEAKER) (test pnat=969) 49.9 mg/dL Reference Range: No NormalsPOTASSIUM, RANDOM [id number] 01:29:00 Test Item Value Reference Range Comments POTASSIUM URINE (BEAKER) (test wejk=810) 18.3 meq/L Reference Range: No NormalsSODIUM, RANDOM [id number] 01:29:00 Test Item Value Reference Range Comments SODIUM URINE (BEAKER) (test vipd=901) 73 meq/L Reference Range: No NormalsSEDIMENTATION [id number] 21:30:00 Test Item Value Reference Range Comments SEDIMENTATION RATE, ERYTHROCYTE (BEAKER) (test 10 mm/HR 0-40 ooxn=293) C-REACTIVE [id number] 20:44:00 Test Item Value Reference Range Comments C-REACTIVE PROTEIN (BEAKER) (test wegh=783) 0.11 mg/dL 0.00-0.50 BASIC METABOLIC [id number] 15:53:00 Test Item Value Reference Range Comments SODIUM (BEAKER) (test 130 meq/L 136-145 bwgq=797) POTASSIUM (BEAKER) (test 4.9 meq/L 3.5-5.1 Specimen slightly uwuq=266) hemolyzed CHLORIDE (BEAKER) (test 106 meq/L 98-107 kfhb=826) CO2 (BEAKER) (test 14 meq/L 22-29 rjmo=636) BLOOD UREA NITROGEN 84 mg/dL 7-21 (BEAKER) (test htit=566) CREATININE (BEAKER) (test 1.65 mg/dL 0.57-1.25 Specimen slightly maus=588) hemolyzed GLUCOSE RANDOM (BEAKER) 102 mg/dL 70-105 (test tcsh=358) CALCIUM (BEAKER) (test 9.0 mg/dL 8.4-10.2 hbec=222) EGFR (BEAKER) (test 41 mL/min/1.73 sq m ESTIMATED GFR IS NOT jafo=5463) ACCURATE CREATININE CLEARANCE IN PREDICTING GLOMERULAR FILTRATION RATE. ESTIMATED GFR IS NOT APPLICABLE FOR DIALYSIS PATIENTS. CBC W/PLT COUNT & AUTO [id number] 15:45:00 Test Item Value Reference Range Comments WHITE BLOOD CELL COUNT (BEAKER) (test qkml=351) 6.1 K/ L 4.0-10.0 RED BLOOD CELL COUNT (BEAKER) (test bise=514) 5.20 M/ L 4.20-5.80 HEMOGLOBIN (BEAKER) (test amhk=574) 15.0 GM/DL 13.0-16.8 HEMATOCRIT (BEAKER) (test ujfn=694) 45.4 % 40.0-50.0 MEAN CORPUSCULAR VOLUME (BEAKER) (test dcwm=005) 87.3 fL 82.0-98.0 MEAN CORPUSCULAR HEMOGLOBIN (BEAKER) (test 28.8 pg 27.0-33.0 ewwg=880) MEAN CORPUSCULAR HEMOGLOBIN CONC (BEAKER) (test 33.0 GM/DL 32.0-36.0 gfvs=831) RED CELL DISTRIBUTION WIDTH (BEAKER) (test 16.4 % 10.3-14.2 xump=760) PLATELET COUNT (BEAKER) (test ohbg=406) 165 K/CU MM 150-430 MEAN PLATELET VOLUME (BEAKER) (test umrp=237) 8.4 fL 6.5-10.5 NUCLEATED RED BLOOD CELLS (BEAKER) (test 0 /100 WBC 0-0 hbvn=279) NEUTROPHILS RELATIVE PERCENT (BEAKER) (test 61 % yjdm=858) LYMPHOCYTES RELATIVE PERCENT (BEAKER) (test 27 % ynyg=901) MONOCYTES RELATIVE PERCENT (BEAKER) (test 7 % gfin=913) EOSINOPHILS RELATIVE PERCENT (BEAKER) (test 5 % swds=564) BASOPHILS RELATIVE PERCENT (BEAKER) (test 0 % pnug=950) NEUTROPHILS ABSOLUTE COUNT (BEAKER) (test 3.77 K/ L 1.80-8.00 ptjf=713) LYMPHOCYTES ABSOLUTE COUNT (BEAKER) (test 1.63 K/ L 1.48-4.50 wozk=384) MONOCYTES ABSOLUTE COUNT (BEAKER) (test 0.42 K/ L 0.00-1.30 szwr=459) EOSINOPHILS ABSOLUTE COUNT (BEAKER) (test 0.29 K/ L 0.00-0.50 [id number]) BASOPHILS ABSOLUTE COUNT (BEAKER) (test 0.02 K/ L 0.00-0.20 [id number]) 0.00
== END 2019-05-27 17:28 | disposition home or self-care (01) ==
LOC: ER 16:33 → ERHOLD 21:37 → 2ND 22:26
PROVIDERS: ADMIT Hospitalist; ATTEND Internal Medicine
DX: N39.0 Urinary tract infection, site not specified (principal); E86.0 Dehydration; I48.91 Unspecified atrial fibrillation; I12.9 Hypertensive chronic kidney disease with stage 1 through stage 4 chronic kidney disease, or unspecified chronic kidney disease; N18.9 Chronic kidney disease, unspecified; F41.8 Other specified anxiety disorders; Z87.891 Personal history of nicotine dependence; Z85.51 Personal history of malignant neoplasm of bladder
CPT/HCPCS: 93005 ×2; 93306; 87088; 85025 ×2; 87086; 80048; 36415; 83735; 85610 ×2; 80076; 85730; 85652; 87077; 87186; 84484 ×2; 82553; 80053; 83880; 87804 ×2; 70450; 71046; 96372; 96374; 99285; J1650; J0696 ×2; J7030 ×2; G0378 ×3; 81003; 81015

== ENCOUNTER 2020-06-25 13:58 | Inpatient (IN) | payer MEDICARE, OTHER ==
[2020-06-25] MEDS ORDERED: ONDANSETRON 4 MG/2 ML VIAL ONE (14:32)
[2020-06-25] MEDS ORDERED: NA CHLORIDE 0.9% 500 ML ONE (14:32)
[2020-06-25 15:09] LABS: Absolute Lymphocytes (CBC) 0.5 K/uL (0.7-4.9); Basophils % 0.3 % (0-1.3); Hematocrit 42.3 % (39.6-49.0); Lymphocytes % 18.5 % (15.3-44.8); MPV 9.1 fL (7.6-11.3); RBC Red Blood Cell Count 4.73 M/uL (4.33-5.43)
--- OUTSIDE RECORDS SUMMARY | 2020-06-25 15:12 | XMS REPORT | Clinical Summary ---
:1940 Author Organization [facility] Address [address] [place] [address] Care Team Providers Name Role Phone Donte Rosas MD Primary Care Provider Donte Rosas MD Unavailable Allergies Active Allergy Reactions Severity Noted Date Comments Darci Inhibitors Other (See Comments) High 07/27/2015 Hyper kalemia per [facility] file Medications Medication Sig Dispensed Refills Start Date End Date Status mirtazapine (REMERON) 15 Take 15 mg by 0 Active MG tablet mouth nightly. SODIUM BICARBONATE ORAL Take by mouth 3 0 Active (three) times daily. acetaminophen (TYLENOL) Take 500 mg by 0 Active 500 MG tablet mouth every 6 (six) hours as needed for Pain. aspirin 81 MG EC tablet Take 81 mg by 0 Active mouth daily. amLODIPine (NORVASC) 2.5 Take 1 tablet 30 tablet 1 10/03/2017 Active MG tablet (2.5 mg total) by mouth daily. tamsulosin (FLOMAX) 0.4 Take 0.4 mg by 0 Active mg Cp24 24 hr capsule mouth daily. citalopram (CELEXA) 20 Take 20 mg by 0 Active MG tablet mouth daily. gabapentin (NEURONTIN) Take 300 mg by 0 Active 300 MG capsule mouth daily. cilostazol (PLETAL) 50 Take 50 mg by 0 Active MG tablet mouth 2 (two) times daily. clopidogrel (PLAVIX) 75 Take 75 mg by 0 Active mg tablet mouth daily. amLODIPine (NORVASC) 2.5 Take 2.5 mg by 0 Active MG tablet mouth daily. gabapentin (NEURONTIN) 2 (two) times 0 03/21/2018 Active 300 MG capsule daily. citalopram (CELEXA) 20 Take 20 mg by 0 Active MG tablet mouth daily. aspirin 81 MG EC tablet Take 81 mg by 0 Active mouth daily. cilostazol (PLETAL) 50 Take 50 mg by 0 Active MG tablet mouth 2 (two) times daily. sodium bicarbonate 650 Take 1 tablet by 0 Active MG tablet mouth 3 (three) times daily. Active Problems Problem Noted Date Claudication 10/02/2017 [...] (acute kidney injury) 06/01/2015 Bladder cancer 08/21/2014 Immunizations Name Administration Dates Next Due Pneumococcal Polysaccharide (Pneumovax) 06/29/2015 Social History Tobacco Use Types Packs/Day Years Used Date Never Assessed Alcohol Use Drinks/Week oz/Week Comments No Sex Assigned at Date Recorded Not on file Last Filed Vital Signs Not on file Plan of Treatment Health Maintenance Due Date Last Done Comments MEDICARE ANNUAL WELLNESS (YEAR 2 or FIRST YEAR if no 12/19/2016 IPPE) INFLUENZA VACCINE (#1) 2020 PNEUMOCOCCAL 65+ YRS Completed 06/29/2015 Implants Implanted Type Area Paintings Restorer Device Shelf Model / Identifier Expiration Serial / Date Lot Mynxgrip Vascular Closure Device Df Cardiovascular Left: [id number] 01/16/2019 [id number] / Implanted: Qty: 1 on 01/30/2017 by Filipe Koenig MD at [facility] Groin / [id number] Description:SFA Mynxgrip Vascular Closure Device Cardiovascular Left: CARDINAL [id number] 08/19/2019 / Implanted: Qty: 1 on 10/02/2017 by Filipe Koenig MD at [facility] [id number] Description:LSFA Matrix Floseal Hemo W/O Ndl 10 [id number] - [id number] Cement/Fi ller/Adhesive Left: Leg GARCIA:BIOSCI 06/22/2019 [id number] / Implanted: Qty: 1 on 01/28/2018 by Filipe Koenig MD at [facility] / [id number] Description:HEMOSTATIC MATRIX FLOSEAL Synergy Stents-Peripheral [place] [id number] / Implanted: Qty: 1 on 01/30/2017 by Filipe Koenig MD at [facility] [employer] / [id number] Description:Left PT Promus Premier Stents-Peripheral [place] [id number] / Implanted: Qty: 1 on 01/30/2017 by Filipe Koenig MD at [facility] [employer] / [id number] Description:Left PT Promus Premier Stents-Peripheral [place] [id number] / Implanted: Qty: 1 on 01/30/2017 by Filipe Koenig MD at [facility] [employer] / [id number] Description:Left PT Promus Premier Stents-Peripheral [place] [id number] / Implanted: Qty: 1 on 01/30/2017 by Filipe Koenig MD at [facility] [employer] / [id number] Description:Left PT Results Not on fileafter 06/25/2019 Insurance Payer Benefit Plan / Subscriber ID Effective Dates Phone Addre ss Type Group [facility] - [employer]/MEDICARE [id number] 2018-Present MEDICARE MGD CARE COMPLETE Ever Personal/Family Self 1940 [address] (Home) [phone] [place], [place] (Work) [address] Advance Directives For more information, please contact: [phone] Code Status Date Activated Date Inactivated Comments [...]
--- OUTSIDE RECORDS SUMMARY | 2020-06-25 15:12 | XMS REPORT | Clinical Summary ---
:1940 Author Organization [facility] Address [address] [place] [id number] Care Team Providers Name Role Phone Donte [...] Active tablet Active Problems Not on file Medical History Medical History Date Comments Hypertension Hydronephrosis Chronic kidney disease Social History Tobacco Use Types Packs/Day Years Used Date Never Assessed Sex Assigned at Date Recorded Not on file Last Filed Vital Signs Not on file Plan of Treatment Health Maintenance Due Date Last Done Comments SHINGLES VACCINES (#1) 1988 65+ PNEUMOCOCCAL VACCINE (1 of 1 - PPSV23) 2003 INFLUENZA VACCINE 02/18/2020 Results Not on fileafter 06/25/2019 Advance Directives For more information, please contact: [phone] Type Date 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
--- OUTSIDE RECORDS SUMMARY | 2020-06-25 15:14 | XMS REPORT | Continuity of Care Document ---
:[address] [facility] t Address [address] [place] [address] Care Team Providers Name Role Phone Donte Rosas MD Primary Care Physician Lab, Ad[facility]am Pob I Attending Clinician Unavailable LIT HIGH Attending Clinician Unavailable RADHA LESLIE Attending Clinician Unavailable SIMA VERDE Attending Clinician Unavailable DAYTON POLANCO Attending Clinician Unavailable TEMI HAMLIN Attending Clinician Unavailable RADHA LESLIE Admitting Clinician Unavailable AMMY MENDIETA Admitting Clinician Unavailable MANDI AG Admitting Clinician Unavailable ODILIA WHITING Admitting Clinician Unavailable Problems Condition Condition Condition Status Onset Resolution Last Treating Co mments Source Name Details Category Date Date Treatment Clinician Date Claudicati Claudicati Disease Active [facility]02 [facility] [place] Eosinophil Eosinophil Disease Active [facility] ia ia 01-29 [facility] - 00:[facility]: [facility] 00 [place] Lower Lower Disease Active [facility] extremity extremity 01-28 [facility] - pain, left pain, left 00:00: Me dical 00 [place] 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 lower limb 7[facility]07 [facility] - ischemia ischemia 00:00: Medica l 00 Center Cellulitis Cellulitis Disease Active [facility] of foot of foot 7 [facility] 00:[facility]: Medical 00 [place] PAD PAD Disease Active [facility] (periphera (periphera 6-30 [facility] - l artery l artery 00:00: Medica l disease) disease) 00 Center Cellulitis Cellulitis Disease Active [facility] and and 6 [facility] - abscess of abscess of 00:00: Me dical foot foot 00 Center HTN HTN Disease Active [facility] (hypertens (hypertens 6-24 [facility] - ion) ion) 00:00: Medical 00 [place] Hydronephr Hydronephr Disease Active [facility] osis osis 6-24 [facility] 00:[facility]: Medical 00 [place] Depression Depression Disease Active [facility] 6-24 [facility] 00:[facility]: Medical [facility] [place] Urinary Urinary Disease Active [facility] tract tract 6-23 [facility] - infection, infection, 00:00: Me dical site site 00 [place] unspecifie unspecifie d d Urinary Urinary Disease Active [facility] obstructio obstructio 1-08 [facility] - n n 00:00: Medical 00 [place] Hyperkalem Hyperkalem Disease Active 2014-[address] ia ia 2-10 [facility] - 00:[facility]: Medical [place] Hyponatrem Hyponatrem Disease Active 2014-[address] ia ia 2-10 [facility] - 00:[facility]: Medical 00 [place] Chronic Chronic Disease Active 2014-[address] [facility] [address] kidney kidney 2-10 [facility] - disease, disease, 00:00: Medica l stage 3 stage 3 00 Center Cellulitis Cellulitis Disease Active 2014-[address] of left of left 2-10 [facility] - foot foot 00:00: Medical 00 [place] 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 2-10 [facility] - 00:[facility]: Medical 00 [place] CKD CKD Disease Active 2014-[address] [facility] [address] (chronic (chronic 2-10 [facility] - kidney kidney 00:00: Medical disease) disease) 00 [place] stage 2, stage 2, GFR 60-89 GFR 60-89 ml/min ml/min DMOINIQUE (acute DOMINIQUE (acute Disease Active 2014-[address] kidney kidney 1-13 [facility] - injury) injury) 00:00: Medical 00 [place] Bladder Bladder Disease Active [facility] cancer cancer - [facility] - 00:00: Medical 00 [place] Allergies, Adverse Reactions, Alerts Allergy Allergy Status Severity Reaction(s) Onset Inactive Treating Comm ents Source Name Type Date Date Clinician Darci Propensi Active [place] Inhibito ty to 07-28 Methodi rs adverse 00:00: st reaction 00 s to drug Darci Drug Active Other (See Hyperkale [facility] Inhibito Intolera Comments) 07-27 barbie per [facility] - nce 00:00: BC file Medical 00 [place] Social History Social Habit Start Date Stop Date Quantity Comments Source Sex Assigned At [facility] Alcohol intake 2018-04-13 2018-04-13 [facility] non-drinker of Medical Ce nter alcohol (finding) Medications Ordered Filled Start Stop Current Ordering Indication Dosage Frequency Signature Comments Components Source Medication Medication Date Date Medication? Clinician (SIG) Name Name mirtazapine Yes 15mg QD Take [address] [facility] (REMERON) 9-25 by mouth [facility] - 15 MG 11:49: nightly. Medical tablet 05 [place] SODIUM Yes [id number] Take by [facility] BICARBONATE 9-25 [id number] mouth 3 [facility] - ORAL 11:49: 3D (three) Medical 05 times Center daily. acetaminoph Yes 500mg Take [address] en 9-25 mg by [facility] - (TYLENOL) 11:49: mouth Medical 500 MG 05 every 6 Center tablet (six) hours as needed for Pain. aspirin 81 Yes 81mg QD Take [address] MG EC 9-25 by mouth [facility] - tablet 11:49: daily. Medical [address] [place] [address] tamsulosin Yes .4mg QD Take 0.[address] (FLOMAX) 9-25 mg by [facility] - 0.4 mg Cp24 11:49: mouth Medic al 24 hr 05 daily. [place] capsule citalopram Yes 20mg QD Take [address] (CELEXA) 20 9-25 by mouth [facility] - MG tablet 11:49: daily. Medica l 05 [place] gabapentin 2018-0 Yes 300mg QD Take [address] (NEURONTIN) 9-25 mg by [facility] - 300 MG 11:49: mouth Medical capsule 05 daily. [place] cilostazol 2018-0 Yes 50mg Q.5D Take [address] (PLETAL) 50 9-25 by mouth 2 [facility] - MG tablet 11:49: (two) Medical 05 times Center daily. clopidogrel 2018-0 Yes 75mg QD Take [address] (PLAVIX) 75 9-24 by mouth [facility] - mg tablet 15:49: daily. Medica l 51 [place] amLODIPine 0 Yes 2.5mg QD Take 2.[address] (NORVASC) 9-24 mg by [facility] - 2.5 MG 14:34: mouth Medical tablet 41 daily. [place] citalopram 2017-0 Yes 20mg QD Take [address] (CELEXA) 20 9-24 by mouth [facility] - MG tablet 14:34: daily. Medica l 41 [place] aspirin 81 2017-0 Yes 81mg QD Take [address] MG EC 9-24 by mouth [facility] - tablet 14:34: daily. Medical 41 [place] cilostazol 2017-0 Yes 50mg Q.5D Take [address] (PLETAL) 50 9-24 by mouth 2 [facility] [place] - MG tablet 14:34: (two) Medical 41 times Center daily. sodium 2018-0 Yes 1{tbl} [id number] Take [address] bicarbonate 9-24 [id number] tablet by [facility] - 650 MG 14:34: 3D mouth 3 Medical tablet 41 (three) Center times daily. gabapentin 2018-0 Yes Q.5D 2 (two) [facility] (NEURONTIN) 9-02 times [facility] - 300 MG 00:00: daily. Medical capsule 00 Center amLODIPine 2017-0 Yes 2.5mg QD Take [address] (NORVASC) 3-17 tablet [facility] - 2.5 MG 00:00: (2.5 mg Medical tablet 00 total) by Center mouth daily. levoFLOXaci 2017-0 Yes 250mg Take 250 [facility] [place] 1-09 mg by Methodi (LEVAQUIN) 11:08: mouth. st 500 MG 31 tablet tamsulosin 2017-0 Yes .4mg Take 0.4 [facility] (FLOMAX) 1-09 mg by [facility] 0.4 mg 11:08: mouth. st capsule,ext 31 ended release 24hr fludrocorti 2015-07 Yes Mickey renteria sone 0.1 mg 2-19 [facility] tablet 00:00: st 00 mirtazapine 2015-07 Yes Mickey renteria (REMERON) 1-11 [facility] 15 MG 00:00: st tablet 00 amLODIPine 2015-07 Yes Jhonatan (NORVASC) 1-05 [facility] 2.5 mg 00:00: st tablet 00 Immunizations Ordered Immunization Filled Immunization Date Status Commen ts Source Name Name Pneumococcal 2015-06-[address] [facility] - Polysaccharide 00:00:00 Medical Ce nter (Pneumovax) Procedures This patient has no known procedures. Plan of Care Planned Activity Planned Date Details Comments Source Future Scheduled 2020-03-20 INFLUENZA VACCINE (#1) [facility] Test 00:00:00 [code = INFLUENZA Medical Ce nter VACCINE (#1)] Future Scheduled 2020-02-18 [facility]ZA VACCINE [facility] 00:00:00 [code = INFLUENZA VACCINE] Future Scheduled 2016-12-[address] [facility] - Test 00:00:00 WELLNESS (YEAR 2 or Medical Center FIRST YEAR if no IPPE) [code = MEDICARE ANNUAL WELLNESS (YEAR 2 or FIRST YEAR if no IPPE)] Future Scheduled 2003 65+ PNEUMOCOCCAL [place] [facility] Test 00:00:00 VACCINE (1 of 1 - PPSV23) [code = 65+ PNEUMOCOCCAL VACCINE (1 of 1 - PPSV23)] Future Scheduled 1988 SHINGLES VACCINES (#1) [facility] Test 00:00:00 [code = SHINGLES VACCINES (#1)] Encounters Start End Encounter Admission Attending Care Care Encounter Source Date/Time Date/Time Type Type Clinicians Facility Department ID 2020-06-19 2020-06-19 Laboratory Lab, [facility] [id number] 16:32:43 16:52:43 Only Fam [facility] [id number] [place] [id number] Professio [phone] nal 0[address] One Results Test Description Test Time Test Comments Results Result Sourc e Comments RAD, SPINE, 2018-04-12 Reason for FINAL REPORT PATIENT LUMBAR, COMPLETE 10:47:00 exam:->LEG ID: [id number] (MIN 4 VIEWS) PAINReason for CLINICAL HISTORY: exam:->BACK LEG PAINBACK PAINHIP PAINReason for PAIN TECHNIQUE: Five exam:->HIP PAIN views of the lumbar spine. 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 There is no evidence for lumbar fracture or dislocation. There are multiple abdominal pelvic surgical clips. Signed: Tish Tena Verified Date/Time: 04/12/2018 10:47:57 Reading Location: [facility] Radiology Reading Room , HIP, 2 VIEWS, 2018-04-12 Reason for FINAL REPORT PATIENT RIGHT 10:42:00 exam:->LEG ID: [id number] PAINReason for CLINICAL HISTORY: exam:->BACK LEG PAINBACK PAINHIP PAINReason for PAIN TECHNIQUE: 2 exam:->HIP PAIN views of the right hip COMPARISON: None IMPRESSION: There are degenerative changes of the right hip without evidence of fracture or dislocation. Signed: Tish Tena Verified Date/Time: 04/12/2018 10:42:38 Reading Location: [facility] Radiology Reading Room ALYSIS W/ MICROSCOPIC 2018-04-12 10:24:00 Test Item Value Reference Range Interpretation Comme nts COLOR (BEAKER) (test code = 470) Light Yellow CLARITY (BEAKER) (test code = 469) Clear SPECIFIC GRAVITY UA (BEAKER) (test code = 468) 1.008 1.001-1 .035 PH UA (BEAKER) (test code = 467) 6.5 5.0-8.0 PROTEIN UA (BEAKER) (test code = 464) Negative Negative GLUCOSE UA (BEAKER) (test code = 365) Negative Negative KETONES UA (BEAKER) (test code = 371) Negative Negative BILIRUBIN UA (BEAKER) (test code = 462) Negative Negative BLOOD UA (BEAKER) (test code = 461) Trace Negative A NITRITE UA (BEAKER) (test code = 465) Negative Negative LEUKOCYTE ESTERASE UA (BEAKER) (test code = 466) Moderate Negat cynid A UROBILINOGEN UA (BEAKER) (test code = 463) 0.2 mg/dL 0.2-1.0 RBC UA (BEAKER) (test code = 519) 4 /HPF WBC UA (BEAKER) (test code = 520) 34 /HPF BACTERIA (BEAKER) (test code = 517) Moderate MUCUS (BEAKER) (test code = 1574) Rare SOURCE(BEAKER) (test code = 2795) Urine, Clean Catch BASIC METABOLIC [id number] 10:05:00 Test Item Value Reference Range Interpretation Comments SODIUM (BEAKER) 137 meq/L 136-145 (test code = 381) POTASSIUM (BEAKER) 4.7 meq/L 3.5-5.1 Specimen slightly (test code = 379) hemolyzed CHLORIDE (BEAKER) 108 meq/L 98-107 H (test code = 382) CO2 (BEAKER) (test 23 meq/L 22-29 code = 355) BLOOD UREA NITROGEN 87 mg/dL 7-21 H (BEAKER) (test code = 354) CREATININE (BEAKER) 1.67 mg/dL 0.57-1.25 H Specimen slightly (test code = 358) hemolyzed GLUCOSE RANDOM 92 mg/dL 70-105 (BEAKER) (test code = 652) CALCIUM (BEAKER) 8.9 mg/dL 8.4-10.2 (test code = 697) EGFR (BEAKER) (test mL/min/1.73 INSUFFIC IENT CLINICAL code = 1092) sq m DATA TO CALCULA TE ESTIMATED GFR. HEPATIC FUNCTION [id number] 09:44:00 Test Item Value Reference Range Interpretation Comments TOTAL PROTEIN (BEAKER) 7.2 gm/dL 6.0-8.3 Speci men slightly (test code = 770) hemolyzed ALBUMIN (BEAKER) (test 4.2 g/dL 3.5-5.0 Speci men slightly code = 1145) hemolyzed BILIRUBIN TOTAL 0.7 mg/dL 0.2-1.2 Specimen sli ghtly (BEAKER) (test code = hemoly zed 377) BILIRUBIN DIRECT 0.3 mg/dL 0.1-0.5 Specimen sl ightly (BEAKER) (test code = hemoly zed 706) ALKALINE PHOSPHATASE 80 U/L 40-150 (BEAKER) (test code = 346) AST (SGOT) (BEAKER) 23 U/L 5-34 Specimen slightly (test code = 353) hemolyzed ALT (SGPT) (BEAKER) 26 U/L 6-55 Specimen slightly (test code = 347) hemolyzed CBC W/PLT COUNT & AUTO [id number] 09:27:00 Test Item Value Reference Range Interpretation Comments WHITE BLOOD CELL COUNT (BEAKER) 8.0 K/ L 3.5-10.5 (test code = 775) RED BLOOD CELL COUNT (BEAKER) 5.17 M/ L 4.63-6.08 (test code = 761) HEMOGLOBIN (BEAKER) (test code = 14.0 GM/DL 13.7-17.5 410) HEMATOCRIT (BEAKER) (test code = 45.0 % 40.1-51.0 411) MEAN CORPUSCULAR VOLUME (BEAKER) 87.0 fL 79.0-92.2 (test code = 753) MEAN CORPUSCULAR HEMOGLOBIN 27.1 pg 25.7-32.2 (BEAKER) (test code = 751) MEAN CORPUSCULAR HEMOGLOBIN CONC 31.1 GM/DL 32.3-36.5 L (BEAKER) (test code = 752) RED CELL DISTRIBUTION WIDTH 13.3 % 11.6-14.4 (BEAKER) (test code = 412) PLATELET COUNT (BEAKER) (test 189 K/CU MM 150-450 code = 756) MEAN PLATELET VOLUME (BEAKER) 10.4 fL 9.4-12.4 (test code = 754) NUCLEATED RED BLOOD CELLS 0 /100 WBC 0-0 (BEAKER) (test code = 413) NEUTROPHILS RELATIVE PERCENT 72 % (BEAKER) (test code = 429) LYMPHOCYTES RELATIVE PERCENT 20 % (BEAKER) (test code = 430) MONOCYTES RELATIVE PERCENT 7 % (BEAKER) (test code = 431) EOSINOPHILS RELATIVE PERCENT 1 % (BEAKER) (test code = 432) BASOPHILS RELATIVE PERCENT 1 % (BEAKER) (test code = 437) NEUTROPHILS ABSOLUTE COUNT 5.73 K/ L 1.78-5.38 H (BEAKER) (test code = 670) LYMPHOCYTES ABSOLUTE COUNT 1.56 K/ L 1.32-3.57 (BEAKER) (test code = 414) MONOCYTES ABSOLUTE COUNT (BEAKER) 0.58 K/ L 0.30-0.82 (test code = 415) EOSINOPHILS ABSOLUTE COUNT 0.09 K/ L 0.04-0.54 (BEAKER) (test code = 416) BASOPHILS ABSOLUTE COUNT (BEAKER) 0.04 K/ L 0.01-0.08 (test code = 417) IMMATURE GRANULOCYTES-RELATIVE 0 % 0-1 PERCENT (BEAKER) (test code = 2801) [id number] 06:07:00 Test Item Value Reference Range Interpretation Comments PHOSPHORUS (BEAKER) (test code = 2.9 mg/dL 2.3-4.7 604) [id number] 06:07:00 Test Item Value Reference Range Interpretation Comments MAGNESIUM (BEAKER) (test code = 2.0 mg/dL 1.6-2.6 627) BASIC METABOLIC [id number] 06:07:00 Test Item Value Reference Range Interpretation Comments SODIUM (BEAKER) 136 meq/L 136-145 (test code = 381) POTASSIUM (BEAKER) 4.4 meq/L 3.5-5.1 (test code = 379) CHLORIDE (BEAKER) 105 meq/L 98-107 (test code = 382) CO2 (BEAKER) (test 23 meq/L 22-29 code = 355) BLOOD UREA NITROGEN 51 mg/dL 7-21 H (BEAKER) (test code = 354) CREATININE (BEAKER) 1.05 mg/dL 0.57-1.25 (test code = 358) GLUCOSE RANDOM 116 mg/dL 70-105 H (BEAKER) (test code = 652) CALCIUM (BEAKER) 8.5 mg/dL 8.4-10.2 (test code = 697) EGFR (BEAKER) (test 68 mL/min/1.73 ESTIMA KRZYSZTOF GFR IS code = 1092) sq m NOT ACCURATE CREATININE CLEARANCE IN PREDICTING GLOMERULAR FILTRATION RATE . ESTIMATED GFR I S NOT APPLICABLE FOR DIALYSIS PATIEN TS. CBC (HEMOGRAM ONLY)2018-01-31 05:18:00 Test Item Value Reference Range Interpretation Comments WHITE BLOOD CELL COUNT (BEAKER) 5.5 K/ L 3.5-10.5 (test code = 775) RED BLOOD CELL COUNT (BEAKER) 4.26 M/ L 4.63-6.08 L (test code = 761) HEMOGLOBIN (BEAKER) (test code = 12.3 GM/DL 13.7-17.5 L 410) HEMATOCRIT (BEAKER) (test code = 37.8 % 40.1-51.0 L 411) MEAN CORPUSCULAR VOLUME (BEAKER) 88.7 fL 79.0-92.2 (test code = 753) MEAN CORPUSCULAR HEMOGLOBIN 28.9 pg 25.7-32.2 (BEAKER) (test code = 751) MEAN CORPUSCULAR HEMOGLOBIN CONC 32.5 GM/DL 32.3-36.5 (BEAKER) (test code = 752) RED CELL DISTRIBUTION WIDTH 14.3 % 11.6-14.4 (BEAKER) (test code = 412) PLATELET COUNT (BEAKER) (test 129 K/CU MM 150-450 L code = 756) MEAN PLATELET VOLUME (BEAKER) 10.7 fL 9.4-12.4 (test code = 754) NUCLEATED RED BLOOD CELLS 0 /100 WBC 0-0 (BEAKER) (test code = 413) POCT-GLUCOSE [id number] 08:10:00 Test Item Value Reference Range Interpretation Comments POC-GLUCOSE METER 109 mg/dL 70-110 TESTED AT [facility] 6720 (BEAKER) (test code = [place]) [id number] 05:39:00 Test Item Value Reference Range Interpretation Comments PHOSPHORUS (BEAKER) (test code = 3.2 mg/dL 2.3-4.7 604) [id number] 05:39:00 Test Item Value Reference Range Interpretation Comments MAGNESIUM (BEAKER) (test code = 2.1 mg/dL 1.6-2.6 627) BASIC METABOLIC [id number] 05:39:00 Test Item Value Reference Range Interpretation Comments SODIUM (BEAKER) 136 meq/L 136-145 (test code = 381) POTASSIUM (BEAKER) 4.8 meq/L 3.5-5.1 (test code = 379) CHLORIDE (BEAKER) 108 meq/L 98-107 H (test code = 382) CO2 (BEAKER) (test 23 meq/L 22-29 code = 355) BLOOD UREA NITROGEN 49 mg/dL 7-21 H (BEAKER) (test code = 354) CREATININE (BEAKER) 1.08 mg/dL 0.57-1.25 (test code = 358) GLUCOSE RANDOM 102 mg/dL 70-105 (BEAKER) (test code = 652) CALCIUM (BEAKER) 8.5 mg/dL 8.4-10.2 (test code = 697) EGFR (BEAKER) (test 66 mL/min/1.73 ESTIMA KRZYSZTOF GFR IS code = 1092) sq m NOT ACCURATE CREATININE CLEARANCE IN PREDICTING GLOMERULAR FILTRATION RATE . ESTIMATED GFR I S NOT APPLICABLE FOR DIALYSIS PATIEN TS. CBC (HEMOGRAM ONLY)2018-01-30 05:37:00 Test Item Value Reference Range Interpretation Comments WHITE BLOOD CELL COUNT (BEAKER) 5.4 K/ L 3.5-10.5 (test code = 775) RED BLOOD CELL COUNT (BEAKER) 4.28 M/ L 4.63-6.08 L (test code = 761) HEMOGLOBIN (BEAKER) (test code = 12.3 GM/DL 13.7-17.5 L 410) HEMATOCRIT (BEAKER) (test code = 38.5 % 40.1-51.0 L 411) MEAN CORPUSCULAR VOLUME (BEAKER) 90.0 fL 79.0-92.2 (test code = 753) MEAN CORPUSCULAR HEMOGLOBIN 28.7 pg 25.7-32.2 (BEAKER) (test code = 751) MEAN CORPUSCULAR HEMOGLOBIN CONC 31.9 GM/DL 32.3-36.5 L (BEAKER) (test code = 752) RED CELL DISTRIBUTION WIDTH 14.4 % 11.6-14.4 (BEAKER) (test code = 412) PLATELET COUNT (BEAKER) (test 119 K/CU MM 150-450 L code = 756) MEAN PLATELET VOLUME (BEAKER) 10.4 fL 9.4-12.4 (test code = 754) NUCLEATED RED BLOOD CELLS 0 /100 WBC 0-0 (BEAKER) (test code = 413) POCT-GLUCOSE [id number] 21:31:00 Test Item Value Reference Range Interpretation Comments POC-GLUCOSE METER 136 mg/dL 70-110 H TESTED AT [facility] 6720 (BEAKER) (test code = [place] 1538) [address] [id number] 03:49:00 Test Item Value Reference Range Interpretation Comments PHOSPHORUS (BEAKER) (test code = 4.2 mg/dL 2.3-4.7 604) [id number] 03:49:00 Test Item Value Reference Range Interpretation Comments MAGNESIUM (BEAKER) (test code = 2.0 mg/dL 1.6-2.6 627) BASIC METABOLIC [id number] 03:49:00 Test Item Value Reference Range Interpretation Comments SODIUM (BEAKER) 138 meq/L 136-145 (test code = 381) POTASSIUM (BEAKER) 4.3 meq/L 3.5-5.1 (test code = 379) CHLORIDE (BEAKER) 110 meq/L 98-107 H (test code = 382) CO2 (BEAKER) (test 19 meq/L 22-29 L code = 355) BLOOD UREA NITROGEN 47 mg/dL 7-21 H (BEAKER) (test code = 354) CREATININE (BEAKER) 1.08 mg/dL 0.57-1.25 (test code = 358) GLUCOSE RANDOM 138 mg/dL 70-105 H (BEAKER) (test code = 652) CALCIUM (BEAKER) 8.6 mg/dL 8.4-10.2 (test code = 697) EGFR (BEAKER) (test 66 mL/min/1.73 ESTIMA KRZYSZTOF GFR IS code = 1092) sq m NOT ACCURATE CREATININE CLEARANCE IN PREDICTING GLOMERULAR FILTRATION RATE . ESTIMATED GFR I S NOT APPLICABLE FOR DIALYSIS PATIEN TS. CBC (HEMOGRAM ONLY)2018-01-29 03:38:00 Test Item Value Reference Range Interpretation Comments WHITE BLOOD CELL COUNT (BEAKER) 5.6 K/ L 3.5-10.5 (test code = 775) RED BLOOD CELL COUNT (BEAKER) 4.48 M/ L 4.63-6.08 L (test code = 761) HEMOGLOBIN (BEAKER) (test code = 12.7 GM/DL 13.7-17.5 L 410) HEMATOCRIT (BEAKER) (test code = 39.8 % 40.1-51.0 L 411) MEAN CORPUSCULAR VOLUME (BEAKER) 88.8 fL 79.0-92.2 (test code = 753) MEAN CORPUSCULAR HEMOGLOBIN 28.3 pg 25.7-32.2 (BEAKER) (test code = 751) MEAN CORPUSCULAR HEMOGLOBIN CONC 31.9 GM/DL 32.3-36.5 L (BEAKER) (test code = 752) RED CELL DISTRIBUTION WIDTH 14.3 % 11.6-14.4 (BEAKER) (test code = 412) PLATELET COUNT (BEAKER) (test 143 K/CU MM 150-450 L code = 756) MEAN PLATELET VOLUME (BEAKER) 10.3 fL 9.4-12.4 (test code = 754) NUCLEATED RED BLOOD CELLS 0 /100 WBC 0-0 (BEAKER) (test code = 413) [id number] 15:06:00 Test Item Value Reference Range Interpretation Comments PARTIAL THROMBOPLASTIN TIME 31.2 seconds 22.5-36.0 (BEAKER) (test code = 760) BASIC METABOLIC [id number] 15:05:00 Test Item Value Reference Range Interpretation Comments SODIUM (BEAKER) 139 meq/L 136-145 (test code = 381) POTASSIUM (BEAKER) 4.5 meq/L 3.5-5.1 (test code = 379) CHLORIDE (BEAKER) 113 meq/L 98-107 H (test code = 382) CO2 (BEAKER) (test 19 meq/L 22-29 L code = 355) BLOOD UREA NITROGEN 48 mg/dL 7-21 H (BEAKER) (test code = 354) CREATININE (BEAKER) 1.20 mg/dL 0.57-1.25 (test code = 358) GLUCOSE RANDOM 133 mg/dL 70-105 H (BEAKER) (test code = 652) CALCIUM (BEAKER) 9.0 mg/dL 8.4-10.2 (test code = 697) EGFR (BEAKER) (test 58 mL/min/1.73 ESTIMA KRZYSZTOF GFR IS code = 1092) sq m NOT ACCURATE CREATININE CLEARANCE IN PREDICTING GLOMERULAR FILTRATION RATE . ESTIMATED GFR I S NOT APPLICABLE FOR DIALYSIS PATIEN TS. CBC (HEMOGRAM ONLY)2018-01-28 14:49:00 Test Item Value Reference Range Interpretation Comments WHITE BLOOD CELL COUNT (BEAKER) 8.0 K/ L 3.5-10.5 (test code = 775) RED BLOOD CELL COUNT (BEAKER) 4.73 M/ L 4.63-6.08 (test code = 761) HEMOGLOBIN (BEAKER) (test code = 13.6 GM/DL 13.7-17.5 L 410) HEMATOCRIT (BEAKER) (test code = 41.3 % 40.1-51.0 411) MEAN CORPUSCULAR VOLUME (BEAKER) 87.3 fL 79.0-92.2 (test code = 753) MEAN CORPUSCULAR HEMOGLOBIN 28.8 pg 25.7-32.2 (BEAKER) (test code = 751) MEAN CORPUSCULAR HEMOGLOBIN CONC 32.9 GM/DL 32.3-36.5 (BEAKER) (test code = 752) RED CELL DISTRIBUTION WIDTH 14.3 % 11.6-14.4 (BEAKER) (test code = 412) PLATELET COUNT (BEAKER) (test 146 K/CU MM 150-450 L code = 756) MEAN PLATELET VOLUME (BEAKER) 10.1 fL 9.4-12.4 (test code = 754) NUCLEATED RED BLOOD CELLS 0 /100 WBC 0-0 (BEAKER) (test code = 413) [id number] 12:59:00 Test Item Value Reference Range Interpretation Comments ACTIVATED CLOTTING TIME 120 sec TEST ED AT [place] [address] ([facility]) (test code = [place] [facility]) [id number] 12:59:00 Test Item Value Reference Range Interpretation Comments ACTIVATED CLOTTING TIME 230 sec TEST ED AT [place] [address] ([facility]) (test code = [place] [facility]) [id number] 12:59:00 Test Item Value Reference Range Interpretation Comments ACTIVATED CLOTTING TIME 257 sec TEST ED AT [place] [address] ([facility]) (test code = [place] [facility]) [address] [id number] 12:59:00 Test Item Value Reference Range Interpretation Comments ACTIVATED CLOTTING TIME 246 sec TEST ED AT [place] [address] ([facility]) (test code = [facility]) [address] [id number] 12:59:00 Test Item Value Reference Range Interpretation Comments ACTIVATED CLOTTING TIME 263 sec TEST ED AT [place] [address] (BEAKER) (test code = [place]) [address] [id number] 12:59:00 Test Item Value Reference Range Interpretation Comments ACTIVATED CLOTTING TIME 263 sec TEST ED AT [facility] 6720 (BEAKER) (test code = [place]) [address] BLOOD GAS, [id number] 11:14:00 Test Item Value Reference Range Interpretation Comments PH ARTERIAL (BEAKER) (test code = 7.41 7.35-7.45 383) PCO2 ARTERIAL (BEAKER) (test code 35 mmHg 35-45 = 384) PO2 ARTERIAL (BEAKER) (test code 170 mmHg 80-90 H = 385) O2 SATURATION ARTERIAL (BEAKER) 99.2 % 96.0-97.0 H (test code = 386) HCO3 ARTERIAL (BEAKER) (test code 22 mmol/L 21-29 = 388) BASE EXCESS ARTERIAL (BEAKER) -2.0 mmol/L -2.0-3.0 (test code = 387) PATIENT TEMPERATURE (BEAKER) 36.0 C (test code = 1818) FIO2 (BEAKER) (test code = 1819) 55.0 % GLUCOSE-STAT [id number] 11:13:00 Test Item Value Reference Range Interpretation Comments GLUCOSE RANDOM (BEAKER) (test code 104 mg/dL 70-110 = 652) SODIUM NA-STAT [id number] 11:13:00 Test Item Value Reference Range Interpretation Comments SODIUM (BEAKER) (test code = 381) 137 meq/L 135-148 POTASSIUM-STAT [id number] 11:13:00 Test Item Value Reference Range Interpretation Comments POTASSIUM (BEAKER) (test code = 4.2 meq/L 3.6-5.5 379) HGB/HCT (H&H) - STAT [id number] 11:13:00 Test Item Value Reference Range Interpretation Comments HEMOGLOBIN (BEAKER) (test code = 14.1 g/dL 13.0-16.8 410) HEMATOCRIT (BEAKER) (test code = 41.0 % 40.0-50.0 411) CALCIUM, [id number] 11:13:00 Test Item Value Reference Range Interpretation Comments CALCIUM IONIZED (BEAKER) (test 1.12 mmol/L 1.12-1.27 code = 698) PH, BLOOD (BEAKER) (test code = 7.40 1810) GLUCOSE-STAT [id number] 10:14:00 Test Item Value Reference Range Interpretation Comments GLUCOSE RANDOM (BEAKER) (test code 105 mg/dL 70-110 = 652) SODIUM NA-STAT [id number] 10:14:00 Test Item Value Reference Range Interpretation Comments SODIUM (BEAKER) (test code = 381) 135 meq/L 135-148 POTASSIUM-STAT [id number] 10:14:00 Test Item Value Reference Range Interpretation Comments POTASSIUM (BEAKER) (test code = 4.4 meq/L 3.6-5.5 379) HGB/HCT (H&H) - STAT [id number] 10:14:00 Test Item Value Reference Range Interpretation Comments HEMOGLOBIN (BEAKER) (test code = 14.5 g/dL 13.0-16.8 410) HEMATOCRIT (BEAKER) (test code = 43.0 % 40.0-50.0 411) CALCIUM, [id number] 10:14:00 Test Item Value Reference Range Interpretation Comments CALCIUM IONIZED (BEAKER) (test 1.18 mmol/L 1.12-1.27 code = 698) PH, BLOOD (BEAKER) (test code = 7.34 1810) BLOOD GAS, [id number] 10:14:00 Test Item Value Reference Range Interpretation Comments PH ARTERIAL (BEAKER) (test code = 7.36 7.35-7.45 383) PCO2 ARTERIAL (BEAKER) (test code 36 mmHg 35-45 = 384) PO2 ARTERIAL (BEAKER) (test code 293 mmHg 80-90 H = 385) O2 SATURATION ARTERIAL (BEAKER) 99.7 % 96.0-97.0 H (test code = 386) HCO3 ARTERIAL (BEAKER) (test code 20 mmol/L 21-29 L = 388) BASE EXCESS ARTERIAL (BEAKER) -5.3 mmol/L -2.0-3.0 L (test code = 387) PATIENT TEMPERATURE (BEAKER) 35.6 C (test code = 1818) FIO2 (BEAKER) (test code = 1819) 70.0 % SODIUM NA-STAT [id number] 08:32:00 Test Item Value Reference Range Interpretation Comments SODIUM (BEAKER) (test code = 381) 134 meq/L 135-148 L CALCIUM, [id number] 08:31:00 Test Item Value Reference Range Interpretation Comments CALCIUM IONIZED (BEAKER) (test 1.07 mmol/L 1.12-1.27 L code = 698) PH, BLOOD (BEAKER) (test code = 7.33 1810) BLOOD GAS, [id number] 08:31:00 Test Item Value Reference Range Interpretation Comments PH ARTERIAL (BEAKER) (test code = 7.36 7.35-7.45 383) PCO2 ARTERIAL (BEAKER) (test code 36 mmHg 35-45 = 384) PO2 ARTERIAL (BEAKER) (test code 187 mmHg 80-90 H = 385) O2 SATURATION ARTERIAL (BEAKER) 99.3 % 96.0-97.0 H (test code = 386) HCO3 ARTERIAL (BEAKER) (test code 21 mmol/L 21-29 = 388) BASE EXCESS ARTERIAL (BEAKER) -4.9 mmol/L -2.0-3.0 L (test code = 387) PATIENT TEMPERATURE (BEAKER) 35.0 C (test code = 1818) FIO2 (BEAKER) (test code = 1819) 60.0 % GLUCOSE-STAT [id number] 08:30:00 Test Item Value Reference Range Interpretation Comments GLUCOSE RANDOM (BEAKER) (test code = 97 mg/dL 70-110 652) POTASSIUM-STAT [id number] 08:30:00 Test Item Value Reference Range Interpretation Comments POTASSIUM (BEAKER) (test code = 4.6 meq/L 3.6-5.5 379) HGB/HCT (H&H) - STAT [id number] 08:30:00 Test Item Value Reference Range Interpretation Comments HEMOGLOBIN (BEAKER) (test code = 15.0 g/dL 13.0-16.8 410) HEMATOCRIT (BEAKER) (test code = 44.0 % 40.0-50.0 411) [id number] 07:27:00 Test Item Value Reference Range Interpretation Comments BLOOD UREA NITROGEN (BEAKER) (test 49 mg/dL 7-21 H code = 354) PROTHROMBIN [id number] 06:48:00 Test Item Value Reference Range Interpretation Comments PROTIME (BEAKER) (test code = 14.3 seconds 11.7-14.7 759) INR (BEAKER) (test code = 370) 1.1 <=5.9 RECOMMENDED COUMADIN/WARFARIN INR THERAPY RANGESSTANDARD DOSE: 2.0 - 3.0 Includes: PROPHYLAXIS forvenous thrombosis, systemic embolization; TREATMENT for venous thrombosis and/or pulmonary embolus.HIGH RISK: Target INR is 2.5-3.5 for patients with mechanical heart valves.CBC W/PLT COUNT & AUTO DIFFERENTIAL 2018-01-28 06:42:00 Test Item Value Reference Range Interpretation Comments WHITE BLOOD CELL COUNT (BEAKER) 4.8 K/ L 3.5-10.5 (test code = 775) RED BLOOD CELL COUNT (BEAKER) 5.24 M/ L 4.63-6.08 (test code = 761) HEMOGLOBIN (BEAKER) (test code = 15.1 GM/DL 13.7-17.5 410) HEMATOCRIT (BEAKER) (test code = 45.0 % 40.1-51.0 411) MEAN CORPUSCULAR VOLUME (BEAKER) 85.9 fL 79.0-92.2 (test code = 753) MEAN CORPUSCULAR HEMOGLOBIN 28.8 pg 25.7-32.2 (BEAKER) (test code = 751) MEAN CORPUSCULAR HEMOGLOBIN CONC 33.6 GM/DL 32.3-36.5 (BEAKER) (test code = 752) RED CELL DISTRIBUTION WIDTH 14.2 % 11.6-14.4 (BEAKER) (test code = 412) PLATELET COUNT (BEAKER) (test 154 K/CU MM 150-450 code = 756) MEAN PLATELET VOLUME (BEAKER) 10.3 fL 9.4-12.4 (test code = 754) NUCLEATED RED BLOOD CELLS 0 /100 WBC 0-0 (BEAKER) (test code = 413) NEUTROPHILS RELATIVE PERCENT 63 % (BEAKER) (test code = 429) LYMPHOCYTES RELATIVE PERCENT 23 % (BEAKER) (test code = 430) MONOCYTES RELATIVE PERCENT 7 % (BEAKER) (test code = 431) EOSINOPHILS RELATIVE PERCENT 6 % (BEAKER) (test code = 432) BASOPHILS RELATIVE PERCENT 1 % (BEAKER) (test code = 437) NEUTROPHILS ABSOLUTE COUNT 3.00 K/ L 1.78-5.38 (BEAKER) (test code = 670) LYMPHOCYTES ABSOLUTE COUNT 1.11 K/ L 1.32-3.57 L (BEAKER) (test code = 414) MONOCYTES ABSOLUTE COUNT (BEAKER) 0.33 K/ L 0.30-0.82 (test code = 415) EOSINOPHILS ABSOLUTE COUNT 0.29 K/ L 0.04-0.54 (BEAKER) (test code = 416) BASOPHILS ABSOLUTE COUNT (BEAKER) 0.04 K/ L 0.01-0.08 (test code = 417) IMMATURE GRANULOCYTES-RELATIVE 0 % 0-1 PERCENT (BEAKER) (test code = 2801) [id number] 11:22:00 Test Item Value Reference Range Interpretation Comments SODIUM (BEAKER) (test 139 meq/L 136-145 code = 381) POTASSIUM (BEAKER) 4.9 meq/L 3.5-5.1 Specimen slightly (test code = 379) hemolyzed CHLORIDE (BEAKER) 108 meq/L 98-107 H (test code = 382) CO2 (BEAKER) (test 22 meq/L 22-29 code = 355) [id number] 11:22:00 Test Item Value Reference Range Interpretation Comments GLUCOSE RANDOM (BEAKER) (test code 102 mg/dL 70-105 = 652) BUN AND [id number] 11:22:00 Test Item Value Reference Range Interpretation Comments BLOOD UREA NITROGEN 55 mg/dL 7-21 H (BEAKER) (test code = 354) CREATININE (BEAKER) 1.29 mg/dL 0.57-1.25 H Specimen slightly (test code = 358) hemolyzed EGFR (BEAKER) (test 54 mL/min/1.73 ESTIMA KRZYSZTOF GFR IS code = 1092) sq m NOT ACCURATE CREATININE CLEARANCE IN PREDICTING GLOMERULAR FILTRATION RATE . ESTIMATED GFR I S NOT APPLICABLE FOR DIALYSIS PATIEN TS. [id number] 08:56:00 Test Item Value Reference Range Interpretation Comments HEMOGLOBIN (BEAKER) (test code = 15.9 GM/DL 13.7-17.5 410) BASIC METABOLIC [id number] 01:34:00 Test Item Value Reference Range Interpretation Comments SODIUM (BEAKER) 141 meq/L 136-145 (test code = 381) POTASSIUM (BEAKER) 4.4 meq/L 3.5-5.1 (test code = 379) CHLORIDE (BEAKER) 109 meq/L 98-107 H (test code = 382) CO2 (BEAKER) (test 24 meq/L 22-29 code = 355) BLOOD UREA NITROGEN 51 mg/dL 7-21 H (BEAKER) (test code = 354) CREATININE (BEAKER) 1.12 mg/dL 0.57-1.25 (test code = 358) GLUCOSE RANDOM 93 mg/dL 70-105 (BEAKER) (test code = 652) CALCIUM (BEAKER) 8.5 mg/dL 8.4-10.2 (test code = 697) EGFR (BEAKER) (test 63 mL/min/1.73 ESTIMA KRZYSZTOF GFR IS code = 1092) sq m NOT ACCURATE CREATININE CLEARANCE IN PREDICTING GLOMERULAR FILTRATION RATE . ESTIMATED GFR I S NOT APPLICABLE FOR DIALYSIS PATITAMIKO AVALOS [id number] 01:32:00 Test Item Value Reference Range Interpretation Comments PARTIAL THROMBOPLASTIN TIME 69.3 seconds 22.5-36.0 H (BEAKER) (test code = 760) CBC W/PLT COUNT & AUTO [id number] 01:23:00 Test Item Value Reference Range Interpretation Comments WHITE BLOOD CELL COUNT (BEAKER) 4.7 K/ L 3.5-10.5 (test code = 775) RED BLOOD CELL COUNT (BEAKER) 5.17 M/ L 4.63-6.08 (test code = 761) HEMOGLOBIN (BEAKER) (test code = 13.9 GM/DL 13.7-17.5 410) HEMATOCRIT (BEAKER) (test code = 43.7 % 40.1-51.0 411) MEAN CORPUSCULAR VOLUME (BEAKER) 84.5 fL 79.0-92.2 (test code = 753) MEAN CORPUSCULAR HEMOGLOBIN 26.9 pg 25.7-32.2 (BEAKER) (test code = 751) MEAN CORPUSCULAR HEMOGLOBIN CONC 31.8 GM/DL 32.3-36.5 L (BEAKER) (test code = 752) RED CELL DISTRIBUTION WIDTH 15.7 % 11.6-14.4 H (BEAKER) (test code = 412) PLATELET COUNT (BEAKER) (test 130 K/CU MM 150-450 L code = 756) MEAN PLATELET VOLUME (BEAKER) 10.9 fL 9.4-12.4 (test code = 754) NUCLEATED RED BLOOD CELLS 0 /100 WBC 0-0 (BEAKER) (test code = 413) NEUTROPHILS RELATIVE PERCENT 59 % (BEAKER) (test code = 429) LYMPHOCYTES RELATIVE PERCENT 27 % (BEAKER) (test code = 430) MONOCYTES RELATIVE PERCENT 8 % (BEAKER) (test code = 431) EOSINOPHILS RELATIVE PERCENT 5 % (BEAKER) (test code = 432) BASOPHILS RELATIVE PERCENT 0 % (BEAKER) (test code = 437) NEUTROPHILS ABSOLUTE COUNT 2.73 K/ L 1.78-5.38 (BEAKER) (test code = 670) LYMPHOCYTES ABSOLUTE COUNT 1.26 K/ L 1.32-3.57 L (BEAKER) (test code = 414) MONOCYTES ABSOLUTE COUNT (BEAKER) 0.37 K/ L 0.30-0.82 (test code = 415) EOSINOPHILS ABSOLUTE COUNT 0.25 K/ L 0.04-0.54 (BEAKER) (test code = 416) BASOPHILS ABSOLUTE COUNT (BEAKER) 0.02 K/ L 0.01-0.08 (test code = 417) IMMATURE GRANULOCYTES-RELATIVE 0 % 0-1 PERCENT (BEAKER) (test code = 2801) [id number] 04:46:00 Test Item Value Reference Range Interpretation Comments PROTIME (BEAKER) (test code = 14.2 seconds 11.7-14.7 759) INR (BEAKER) (test code = 370) 1.1 <=5.9 PARTIAL THROMBOPLASTIN TIME 27.9 seconds 22.5-36.0 (BEAKER) (test code = 760) RECOMMENDED COUMADIN/WARFARIN INR THERAPY RANGESSTANDARD DOSE: 2.0 - 3.0 Includes: PROPHYLAXIS forvenous thrombosis, systemic embolization; TREATMENT for venous thrombosis and/or pulmonary embolus.HIGH RISK: Target INR is 2.5-3.5 for patients with mechanical heart valves.BASIC METABOLIC [id number] 02:31:00 Test Item Value Reference Range Interpretation Comments SODIUM (BEAKER) 140 meq/L 136-145 (test code = 381) POTASSIUM (BEAKER) 4.7 meq/L 3.5-5.1 (test code = 379) CHLORIDE (BEAKER) 106 meq/L 98-107 (test code = 382) CO2 (BEAKER) (test 27 meq/L 22-29 code = 355) BLOOD UREA NITROGEN 52 mg/dL 7-21 H (BEAKER) (test code = 354) CREATININE (BEAKER) 1.30 mg/dL 0.57-1.25 H (test code = 358) GLUCOSE RANDOM 91 mg/dL 70-105 (BEAKER) (test code = 652) CALCIUM (BEAKER) 9.0 mg/dL 8.4-10.2 (test code = 697) EGFR (BEAKER) (test 53 mL/min/1.73 ESTIMA KRZYSZTOF GFR IS code = 1092) sq m NOT ACCURATE CREATININE CLEARANCE IN PREDICTING GLOMERULAR FILTRATION RATE . ESTIMATED GFR I S NOT APPLICABLE FOR DIALYSIS PATIEN TS. CBC W/PLT COUNT & AUTO [id number] 02:17:00 Test Item Value Reference Range Interpretation Comments WHITE BLOOD CELL COUNT (BEAKER) 5.4 K/ L 3.5-10.5 (test code = 775) RED BLOOD CELL COUNT (BEAKER) 5.32 M/ L 4.63-6.08 (test code = 761) HEMOGLOBIN (BEAKER) (test code = 14.6 GM/DL 13.7-17.5 410) HEMATOCRIT (BEAKER) (test code = 45.6 % 40.1-51.0 411) MEAN CORPUSCULAR VOLUME (BEAKER) 85.7 fL 79.0-92.2 (test code = 753) MEAN CORPUSCULAR HEMOGLOBIN 27.4 pg 25.7-32.2 (BEAKER) (test code = 751) MEAN CORPUSCULAR HEMOGLOBIN CONC 32.0 GM/DL 32.3-36.5 L (BEAKER) (test code = 752) RED CELL DISTRIBUTION WIDTH 15.9 % 11.6-14.4 H (BEAKER) (test code = 412) PLATELET COUNT (BEAKER) (test 140 K/CU MM 150-450 L code = 756) MEAN PLATELET VOLUME (BEAKER) 10.6 fL 9.4-12.4 (test code = 754) NUCLEATED RED BLOOD CELLS 0 /100 WBC 0-0 (BEAKER) (test code = 413) NEUTROPHILS RELATIVE PERCENT 55 % (BEAKER) (test code = 429) LYMPHOCYTES RELATIVE PERCENT 28 % (BEAKER) (test code = 430) MONOCYTES RELATIVE PERCENT 9 % (BEAKER) (test code = 431) EOSINOPHILS RELATIVE PERCENT 8 % (BEAKER) (test code = 432) BASOPHILS RELATIVE PERCENT 1 % (BEAKER) (test code = 437) NEUTROPHILS ABSOLUTE COUNT 2.97 K/ L 1.78-5.38 (BEAKER) (test code = 670) LYMPHOCYTES ABSOLUTE COUNT 1.49 K/ L 1.32-3.57 (BEAKER) (test code = 414) MONOCYTES ABSOLUTE COUNT (BEAKER) 0.51 K/ L 0.30-0.82 (test code = 415) EOSINOPHILS ABSOLUTE COUNT 0.41 K/ L 0.04-0.54 (BEAKER) (test code = 416) BASOPHILS ABSOLUTE COUNT (BEAKER) 0.03 K/ L 0.01-0.08 (test code = 417) IMMATURE GRANULOCYTES-RELATIVE 0 % 0-1 PERCENT (BEAKER) (test code = 2801) CBC W/PLT COUNT & AUTO [id number] 07:53:00 Test Item Value Reference Range Interpretation Comments WHITE BLOOD CELL COUNT (BEAKER) 5.6 K/ L 4.0-10.0 (test code = 775) RED BLOOD CELL COUNT (BEAKER) 4.50 M/ L 4.20-5.80 (test code = 761) HEMOGLOBIN (BEAKER) (test code = 13.3 GM/DL 13.0-16.8 410) HEMATOCRIT (BEAKER) (test code = 40.0 % 40.0-50.0 411) MEAN CORPUSCULAR VOLUME (BEAKER) 88.8 fL 82.0-98.0 (test code = 753) MEAN CORPUSCULAR HEMOGLOBIN 29.6 pg 27.0-33.0 (BEAKER) (test code = 751) MEAN CORPUSCULAR HEMOGLOBIN CONC 33.3 GM/DL 32.0-36.0 (BEAKER) (test code = 752) RED CELL DISTRIBUTION WIDTH 15.7 % 10.3-14.2 H (BEAKER) (test code = 412) PLATELET COUNT (BEAKER) (test 136 K/CU MM 150-430 L code = 756) MEAN PLATELET VOLUME (BEAKER) 8.2 fL 6.5-10.5 (test code = 754) NUCLEATED RED BLOOD CELLS 0 /100 WBC 0-0 (BEAKER) (test code = 413) NEUTROPHILS RELATIVE PERCENT 58 % (BEAKER) (test code = 429) LYMPHOCYTES RELATIVE PERCENT 21 % (BEAKER) (test code = 430) MONOCYTES RELATIVE PERCENT 7 % (BEAKER) (test code = 431) EOSINOPHILS RELATIVE PERCENT 14 % (BEAKER) (test code = 432) BASOPHILS RELATIVE PERCENT 1 % (BEAKER) (test code = 437) NEUTROPHILS ABSOLUTE COUNT 3.28 K/ L 1.80-8.00 (BEAKER) (test code = 670) LYMPHOCYTES ABSOLUTE COUNT 1.18 K/ L 1.48-4.50 L (BEAKER) (test code = 414) MONOCYTES ABSOLUTE COUNT (BEAKER) 0.37 K/ L 0.00-1.30 (test code = 415) EOSINOPHILS ABSOLUTE COUNT 0.78 K/ L 0.00-0.50 H (BEAKER) (test code = 416) BASOPHILS ABSOLUTE COUNT (BEAKER) 0.03 K/ L 0.00-0.20 (test code = 417) 0.00B-TYPE NATRIURETIC FACTOR (BNP)2017-01-31 07:27:00 Test Item Value Reference Range Interpretation Comments B-TYPE NATRIURETIC PEPTIDE (BEAKER) 46 pg/mL 0-100 (test code = 700) [id number] 07:22:00 Test Item Value Reference Range Interpretation Comments PHOSPHORUS (BEAKER) (test code = 2.8 mg/dL 2.3-4.7 604) [id number] 07:22:00 Test Item Value Reference Range Interpretation Comments MAGNESIUM (BEAKER) (test code = 1.9 mg/dL 1.6-2.6 627) BASIC METABOLIC [id number] 07:22:00 Test Item Value Reference Range Interpretation Comments SODIUM (BEAKER) 137 meq/L 136-145 (test code = 381) POTASSIUM (BEAKER) 4.4 meq/L 3.5-5.1 (test code = 379) CHLORIDE (BEAKER) 111 meq/L 98-107 H (test code = 382) CO2 (BEAKER) (test 20 meq/L 22-29 L code = 355) BLOOD UREA NITROGEN 60 mg/dL 7-21 H (BEAKER) (test code = 354) CREATININE (BEAKER) 1.15 mg/dL 0.57-1.25 (test code = 358) GLUCOSE RANDOM 83 mg/dL 70-105 (BEAKER) (test code = 652) CALCIUM (BEAKER) 8.1 mg/dL 8.4-10.2 L (test code = 697) EGFR (BEAKER) (test 62 mL/min/1.73 ESTIMA KRZYSZTOF GFR IS code = 1092) sq m NOT ACCURATE CREATININE CLEARANCE IN PREDICTING GLOMERULAR FILTRATION RATE . ESTIMATED GFR I S NOT APPLICABLE FOR DIALYSIS PATIEN TS. CALCIUM, [id number] 07:05:00 Test Item Value Reference Range Interpretation Comments CALCIUM IONIZED (BEAKER) (test 0.90 mmol/L 1.12-1.27 L code = 698) PH, BLOOD (BEAKER) (test code = 7.42 1810) CBC W/PLT COUNT & AUTO [id number] 08:13:00 Test Item Value Reference Range Interpretation Comments WHITE BLOOD CELL COUNT (BEAKER) 6.2 K/ L 4.0-10.0 (test code = 775) RED BLOOD CELL COUNT (BEAKER) 4.72 M/ L 4.20-5.80 (test code = 761) HEMOGLOBIN (BEAKER) (test code = 14.5 GM/DL 13.0-16.8 410) HEMATOCRIT (BEAKER) (test code = 42.1 % 40.0-50.0 411) MEAN CORPUSCULAR VOLUME (BEAKER) 89.1 fL 82.0-98.0 (test code = 753) MEAN CORPUSCULAR HEMOGLOBIN 30.7 pg 27.0-33.0 (BEAKER) (test code = 751) MEAN CORPUSCULAR HEMOGLOBIN CONC 34.4 GM/DL 32.0-36.0 (BEAKER) (test code = 752) RED CELL DISTRIBUTION WIDTH 15.7 % 10.3-14.2 H (BEAKER) (test code = 412) PLATELET COUNT (BEAKER) (test 134 K/CU MM 150-430 L code = 756) MEAN PLATELET VOLUME (BEAKER) 8.2 fL 6.5-10.5 (test code = 754) NUCLEATED RED BLOOD CELLS 0 /100 WBC 0-0 (BEAKER) (test code = 413) NEUTROPHILS RELATIVE PERCENT 50 % (BEAKER) (test code = 429) LYMPHOCYTES RELATIVE PERCENT 28 % (BEAKER) (test code = 430) MONOCYTES RELATIVE PERCENT 6 % (BEAKER) (test code = 431) EOSINOPHILS RELATIVE PERCENT 15 % (BEAKER) (test code = 432) BASOPHILS RELATIVE PERCENT 0 % (BEAKER) (test code = 437) NEUTROPHILS ABSOLUTE COUNT 3.09 K/ L 1.80-8.00 (BEAKER) (test code = 670) LYMPHOCYTES ABSOLUTE COUNT 1.74 K/ L 1.48-4.50 (BEAKER) (test code = 414) MONOCYTES ABSOLUTE COUNT (BEAKER) 0.39 K/ L 0.00-1.30 (test code = 415) EOSINOPHILS ABSOLUTE COUNT 0.94 K/ L 0.00-0.50 H (BEAKER) (test code = 416) BASOPHILS ABSOLUTE COUNT (BEAKER) 0.02 K/ L 0.00-0.20 (test code = 417) CBC (HEMOGRAM ONLY)2017-01-30 08:07:00 Test Item Value Reference Range Interpretation Comments WHITE BLOOD CELL COUNT (BEAKER) 6.2 K/ L 4.0-10.0 (test code = 775) RED BLOOD CELL COUNT (BEAKER) 4.72 M/ L 4.20-5.80 (test code = 761) HEMOGLOBIN (BEAKER) (test code = 14.5 GM/DL 13.0-16.8 410) HEMATOCRIT (BEAKER) (test code = 42.1 % 40.0-50.0 411) MEAN CORPUSCULAR VOLUME (BEAKER) 89.1 fL 82.0-98.0 (test code = 753) MEAN CORPUSCULAR HEMOGLOBIN 30.7 pg 27.0-33.0 (BEAKER) (test code = 751) MEAN CORPUSCULAR HEMOGLOBIN CONC 34.4 GM/DL 32.0-36.0 (BEAKER) (test code = 752) RED CELL DISTRIBUTION WIDTH 15.7 % 10.3-14.2 H (BEAKER) (test code = 412) PLATELET COUNT (BEAKER) (test 134 K/CU MM 150-430 L code = 756) MEAN PLATELET VOLUME (BEAKER) 8.2 fL 6.5-10.5 (test code = 754) NUCLEATED RED BLOOD CELLS 0 /100 WBC 0-0 (BEAKER) (test code = 413) 0.00BASIC METABOLIC [id number] 06:38:00 Test Item Value Reference Range Interpretation Comments SODIUM (BEAKER) 134 meq/L 136-145 L (test code = 381) POTASSIUM (BEAKER) 4.8 meq/L 3.5-5.1 (test code = 379) CHLORIDE (BEAKER) 108 meq/L 98-107 H (test code = 382) CO2 (BEAKER) (test 19 meq/L 22-29 L code = 355) BLOOD UREA NITROGEN 70 mg/dL 7-21 H (BEAKER) (test code = 354) CREATININE (BEAKER) 1.52 mg/dL 0.57-1.25 H (test code = 358) GLUCOSE RANDOM 87 mg/dL 70-105 (BEAKER) (test code = 652) CALCIUM (BEAKER) 8.3 mg/dL 8.4-10.2 L (test code = 697) EGFR (BEAKER) (test 45 mL/min/1.73 ESTIMA KRZYSZTOF GFR IS code = 1092) sq m NOT ACCURATE CREATININE CLEARANCE IN PREDICTING GLOMERULAR FILTRATION RATE . ESTIMATED GFR I S NOT APPLICABLE FOR DIALYSIS PATIEN TS. CREATINE KINASE (CK)2017-01-30 06:38:00 Test Item Value Reference Range Interpretation Comments CREATINE KINASE TOTAL (BEAKER) (test 65 U/L 29-200 code = 380) [id number] 06:37:00 Test Item Value Reference Range Interpretation Comments PHOSPHORUS (BEAKER) (test code = 3.8 mg/dL 2.3-4.7 604) [id number] 06:37:00 Test Item Value Reference Range Interpretation Comments MAGNESIUM (BEAKER) (test code = 2.1 mg/dL 1.6-2.6 627) B-TYPE NATRIURETIC FACTOR (BNP)2017-01-30 06:28:00 Test Item Value Reference Range Interpretation Comments B-TYPE NATRIURETIC PEPTIDE (BEAKER) 36 pg/mL 0-100 (test code = 700) [id number] 06:16:00 Test Item Value Reference Range Interpretation Comments PARTIAL THROMBOPLASTIN TIME 152.1 seconds 22.5-36.0 HH (BEAKER) (test code = 760) CALCIUM, [id number] 06:12:00 Test Item Value Reference Range Interpretation Comments CALCIUM IONIZED (BEAKER) (test 1.09 mmol/L 1.12-1.27 L code = 698) PH, BLOOD (BEAKER) (test code = 7.25 1810) [id number] 23:50:00 Test Item Value Reference Range Interpretation Comments PARTIAL THROMBOPLASTIN TIME 87.0 seconds 22.5-36.0 H (BEAKER) (test code = 760) [id number] 15:04:00 Test Item Value Reference Range Interpretation Comments PARTIAL THROMBOPLASTIN TIME 43.2 seconds 22.5-36.0 H (BEAKER) (test code = 760) [id number] 12:41:00 Test Item Value Reference Range Interpretation Comments PARTIAL THROMBOPLASTIN TIME 192.4 seconds 22.5-36.0 HH (BEAKER) (test code = 760) Prior to initiating heparinPLATELET [id number] 12:21:00 Test Item Value Reference Range Interpretation Comments PLATELET COUNT (BEAKER) (test 155 K/CU MM 150-430 code = 756) BASIC METABOLIC [id number] 09:42:00 Test Item Value Reference Range Interpretation Comments SODIUM (BEAKER) 132 meq/L 136-145 L (test code = 381) POTASSIUM (BEAKER) 4.8 meq/L 3.5-5.1 (test code = 379) CHLORIDE (BEAKER) 106 meq/L 98-107 (test code = 382) CO2 (BEAKER) (test 19 meq/L 22-29 L code = 355) BLOOD UREA NITROGEN 65 mg/dL 7-21 H (BEAKER) (test code = 354) CREATININE (BEAKER) 1.29 mg/dL 0.57-1.25 H (test code = 358) GLUCOSE RANDOM 88 mg/dL 70-105 (BEAKER) (test code = 652) CALCIUM (BEAKER) 8.9 mg/dL 8.4-10.2 (test code = 697) EGFR (BEAKER) (test 54 mL/min/1.73 ESTIMA KRZYSZTOF GFR IS code = 1092) sq m NOT ACCURATE CREATININE CLEARANCE IN PREDICTING GLOMERULAR FILTRATION RATE . ESTIMATED GFR I S NOT APPLICABLE FOR DIALYSIS PATIEN TS. [id number] 09:30:00 Test Item Value Reference Range Interpretation Comments PROTIME (BEAKER) (test code = 15.0 seconds 11.7-14.7 H 759) INR (BEAKER) (test code = 370) 1.2 <=5.9 PARTIAL THROMBOPLASTIN TIME 29.6 seconds 22.5-36.0 (BEAKER) (test code = 760) RECOMMENDED COUMADIN/WARFARIN INR THERAPY RANGESSTANDARD DOSE: 2.0 - 3.0 Includes: PROPHYLAXIS forvenous thrombosis, systemic embolization; TREATMENT for venous thrombosis and/or pulmonary embolus.HIGH RISK: Target INR is 2.5-3.5 for patients with mechanical heart valves.CBC W/PLT COUNT & AUTO DIFFERENTIAL 2017-01-28 09:26:00 Test Item Value Reference Range Interpretation Comments WHITE BLOOD CELL COUNT (BEAKER) 6.0 K/ L 4.0-10.0 (test code = 775) RED BLOOD CELL COUNT (BEAKER) 4.83 M/ L 4.20-5.80 (test code = 761) HEMOGLOBIN (BEAKER) (test code = 14.3 GM/DL 13.0-16.8 410) HEMATOCRIT (BEAKER) (test code = 42.2 % 40.0-50.0 411) MEAN CORPUSCULAR VOLUME (BEAKER) 87.5 fL 82.0-98.0 (test code = 753) MEAN CORPUSCULAR HEMOGLOBIN 29.7 pg 27.0-33.0 (BEAKER) (test code = 751) MEAN CORPUSCULAR HEMOGLOBIN CONC 33.9 GM/DL 32.0-36.0 (BEAKER) (test code = 752) RED CELL DISTRIBUTION WIDTH 15.9 % 10.3-14.2 H (BEAKER) (test code = 412) PLATELET COUNT (BEAKER) (test 141 K/CU MM 150-430 L code = 756) MEAN PLATELET VOLUME (BEAKER) 8.0 fL 6.5-10.5 (test code = 754) NUCLEATED RED BLOOD CELLS 0 /100 WBC 0-0 (BEAKER) (test code = 413) NEUTROPHILS RELATIVE PERCENT 57 % (BEAKER) (test code = 429) LYMPHOCYTES RELATIVE PERCENT 20 % (BEAKER) (test code = 430) MONOCYTES RELATIVE PERCENT 6 % (BEAKER) (test code = 431) EOSINOPHILS RELATIVE PERCENT 17 % (BEAKER) (test code = 432) BASOPHILS RELATIVE PERCENT 0 % (BEAKER) (test code = 437) NEUTROPHILS ABSOLUTE COUNT 3.40 K/ L 1.80-8.00 (BEAKER) (test code = 670) LYMPHOCYTES ABSOLUTE COUNT 1.21 K/ L 1.48-4.50 L (BEAKER) (test code = 414) MONOCYTES ABSOLUTE COUNT (BEAKER) 0.37 K/ L 0.00-1.30 (test code = 415) EOSINOPHILS ABSOLUTE COUNT 1.01 K/ L 0.00-0.50 H (BEAKER) (test code = 416) BASOPHILS ABSOLUTE COUNT (BEAKER) 0.02 K/ L 0.00-0.20 (test code = 417) [id number] 18:10:00 Test Item Value Reference Range Interpretation Comments ACTIVATED CLOTTING TIME 202 sec TEST ED AT [facility] 6720 (BEAKER) (test code = RUBINA Rosas JHONATAN LOPEZ 441) [id number] BLOOD [id number] 00:00:00 Test Item Value Reference Range Interpretation Comments CULTURE (BEAKER) (test No growth in 5 days code = 1095) URINE [id number] 11:38:00 Test Item Value Reference Range Interpretation Comments CULTURE (BEAKER) (test code = 1095) No growth [id number] 07:05:00 Test Item Value Reference Range Interpretation Comments PHOSPHORUS (BEAKER) (test code = 3.2 mg/dL 2.3-4.7 604) [id number] 07:05:00 Test Item Value Reference Range Interpretation Comments MAGNESIUM (BEAKER) (test code = 2.3 mg/dL 1.6-2.6 627) COMPREHENSIVE METABOLIC [id number] 07:05:00 Test Item Value Reference Range Interpretation Comments TOTAL PROTEIN 6.2 gm/dL 6.0-8.3 (BEAKER) (test code = 770) ALBUMIN (BEAKER) 3.6 g/dL 3.5-5.0 (test code = 1145) ALKALINE PHOSPHATASE 83 U/L 40-150 (BEAKER) (test code = 346) BILIRUBIN TOTAL 0.5 mg/dL 0.2-1.2 (BEAKER) (test code = 377) SODIUM (BEAKER) (test 135 meq/L 136-145 L code = 381) POTASSIUM (BEAKER) 4.2 meq/L 3.5-5.1 (test code = 379) CHLORIDE (BEAKER) 107 meq/L 98-107 (test code = 382) CO2 (BEAKER) (test 20 meq/L 22-29 L code = 355) BLOOD UREA NITROGEN 81 mg/dL 7-21 H (BEAKER) (test code = 354) CREATININE (BEAKER) 1.31 mg/dL 0.57-1.25 H (test code = 358) GLUCOSE RANDOM 85 mg/dL 70-105 (BEAKER) (test code = 652) CALCIUM (BEAKER) 8.3 mg/dL 8.4-10.2 L (test code = 697) AST (SGOT) (BEAKER) 28 U/L 5-34 (test code = 353) ALT (SGPT) (BEAKER) 58 U/L 6-55 H (test code = 347) EGFR (BEAKER) (test 53 mL/min/1.73 ESTIMA KRZYSZTOF GFR IS code = 1092) sq m NOT ACCURATE CREATININE CLEARANCE IN PREDICTING GLOMERULAR FILTRATION RATE . ESTIMATED GFR I S NOT APPLICABLE FOR DIALYSIS PATIEN TS. CALCIUM, [id number] 06:43:00 Test Item Value Reference Range Interpretation Comments CALCIUM IONIZED (BEAKER) (test 1.08 mmol/L 1.12-1.27 L code = 698) PH, BLOOD (BEAKER) (test code = 7.35 1810) CBC W/PLT COUNT & AUTO [id number] 06:36:00 Test Item Value Reference Range Interpretation Comments WHITE BLOOD CELL COUNT (BEAKER) 4.6 K/ L 4.0-10.0 (test code = 775) RED BLOOD CELL COUNT (BEAKER) 4.96 M/ L 4.20-5.80 (test code = 761) HEMOGLOBIN (BEAKER) (test code = 14.3 GM/DL 13.0-16.8 410) HEMATOCRIT (BEAKER) (test code = 43.6 % 40.0-50.0 411) MEAN CORPUSCULAR VOLUME (BEAKER) 87.9 fL 82.0-98.0 (test code = 753) MEAN CORPUSCULAR HEMOGLOBIN 28.8 pg 27.0-33.0 (BEAKER) (test code = 751) MEAN CORPUSCULAR HEMOGLOBIN CONC 32.7 GM/DL 32.0-36.0 (BEAKER) (test code = 752) RED CELL DISTRIBUTION WIDTH 14.7 % 10.3-14.2 H (BEAKER) (test code = 412) PLATELET COUNT (BEAKER) (test 148 K/CU MM 150-430 L code = 756) MEAN PLATELET VOLUME (BEAKER) 7.7 fL 6.5-10.5 (test code = 754) NUCLEATED RED BLOOD CELLS 0 /100 WBC 0-0 (BEAKER) (test code = 413) NEUTROPHILS RELATIVE PERCENT 53 % (BEAKER) (test code = 429) LYMPHOCYTES RELATIVE PERCENT 32 % (BEAKER) (test code = 430) MONOCYTES RELATIVE PERCENT 8 % (BEAKER) (test code = 431) EOSINOPHILS RELATIVE PERCENT 7 % (BEAKER) (test code = 432) BASOPHILS RELATIVE PERCENT 1 % (BEAKER) (test code = 437) NEUTROPHILS ABSOLUTE COUNT 2.43 K/ L 1.80-8.00 (BEAKER) (test code = 670) LYMPHOCYTES ABSOLUTE COUNT 1.46 K/ L 1.48-4.50 L (BEAKER) (test code = 414) MONOCYTES ABSOLUTE COUNT (BEAKER) 0.36 K/ L 0.00-1.30 (test code = 415) EOSINOPHILS ABSOLUTE COUNT 0.31 K/ L 0.00-0.50 (BEAKER) (test code = 416) BASOPHILS ABSOLUTE COUNT (BEAKER) 0.03 K/ L 0.00-0.20 (test code = 417) [id number] 05:54:00 Test Item Value Reference Range Interpretation Comments PHOSPHORUS (BEAKER) (test code = 3.8 mg/dL 2.3-4.7 604) [id number] 05:54:00 Test Item Value Reference Range Interpretation Comments MAGNESIUM (BEAKER) (test code = 2.5 mg/dL 1.6-2.6 627) BASIC METABOLIC [id number] 05:54:00 Test Item Value Reference Range Interpretation Comments SODIUM (BEAKER) 132 meq/L 136-145 L (test code = 381) POTASSIUM (BEAKER) 4.6 meq/L 3.5-5.1 (test code = 379) CHLORIDE (BEAKER) 106 meq/L 98-107 (test code = 382) CO2 (BEAKER) (test 18 meq/L 22-29 L code = 355) BLOOD UREA NITROGEN 89 mg/dL 7-21 H (BEAKER) (test code = 354) CREATININE (BEAKER) 1.34 mg/dL 0.57-1.25 H (test code = 358) GLUCOSE RANDOM 98 mg/dL 70-105 (BEAKER) (test code = 652) CALCIUM (BEAKER) 8.3 mg/dL 8.4-10.2 L (test code = 697) EGFR (BEAKER) (test 52 mL/min/1.73 ESTIMA KRZYSZTOF GFR IS code = 1092) sq m NOT ACCURATE CREATININE CLEARANCE IN PREDICTING GLOMERULAR FILTRATION RATE . ESTIMATED GFR I S NOT APPLICABLE FOR DIALYSIS PATIEN TS. CREATINE KINASE (CK)[id number] 05:54:00 Test Item Value Reference Range Interpretation Comments CREATINE KINASE TOTAL (BEAKER) (test 89 U/L 29-200 code = 380) CALCIUM, [id number] 05:29:00 Test Item Value Reference Range Interpretation Comments CALCIUM IONIZED (BEAKER) (test 1.02 mmol/L 1.12-1.27 L code = 698) PH, BLOOD (BEAKER) (test code = 7.33 1810) EOSINOPHIL SMEAR, [id number] 16:25:00 Test Item Value Reference Range Interpretation Comments EOSINOPHIL SMEAR, URINE Rare EOS =less than No EOS seen A (BEAKER) (test code = 5% WBCs seen are EOS 1851) BASIC METABOLIC [id number] 16:09:00 Test Item Value Reference Range Interpretation Comments SODIUM (BEAKER) 132 meq/L 136-145 L (test code = 381) POTASSIUM (BEAKER) 5.2 meq/L 3.5-5.1 H (test code = 379) CHLORIDE (BEAKER) 104 meq/L 98-107 (test code = 382) CO2 (BEAKER) (test 19 meq/L 22-29 L code = 355) BLOOD UREA NITROGEN 90 mg/dL 7-21 H (BEAKER) (test code = 354) CREATININE (BEAKER) 1.56 mg/dL 0.57-1.25 H (test code = 358) GLUCOSE RANDOM 136 mg/dL 70-105 H (BEAKER) (test code = 652) CALCIUM (BEAKER) 9.0 mg/dL 8.4-10.2 (test code = 697) EGFR (BEAKER) (test 43 mL/min/1.73 ESTIMA KRZYSZTOF GFR IS code = 1092) sq m NOT ACCURATE CREATININE CLEARANCE IN PREDICTING GLOMERULAR FILTRATION RATE . ESTIMATED GFR I S NOT APPLICABLE FOR DIALYSIS PATIEN TS. OSMOLALITY, [id number] 13:18:00 Test Item Value Reference Range Interpretation Comments OSMOLALITY URINE (BEAKER) (test 379 mOsm/kg 40-1400 code = 614) HEMOGLOBIN [id number] 09:05:00 Test Item Value Reference Range Interpretation Comments HEMOGLOBIN A1C (BEAKER) (test code = 5.8 % 4.3-6.1 368) CBC W/PLT COUNT & AUTO [id number] 07:12:00 Test Item Value Reference Range Interpretation Comments WHITE BLOOD CELL COUNT (BEAKER) 6.4 K/ L 4.0-10.0 (test code = 775) RED BLOOD CELL COUNT (BEAKER) 5.33 M/ L 4.20-5.80 (test code = 761) HEMOGLOBIN (BEAKER) (test code = 15.4 GM/DL 13.0-16.8 410) HEMATOCRIT (BEAKER) (test code = 47.1 % 40.0-50.0 411) MEAN CORPUSCULAR VOLUME (BEAKER) 88.5 fL 82.0-98.0 (test code = 753) MEAN CORPUSCULAR HEMOGLOBIN 29.0 pg 27.0-33.0 (BEAKER) (test code = 751) MEAN CORPUSCULAR HEMOGLOBIN CONC 32.8 GM/DL 32.0-36.0 (BEAKER) (test code = 752) RED CELL DISTRIBUTION WIDTH 15.0 % 10.3-14.2 H (BEAKER) (test code = 412) PLATELET COUNT (BEAKER) (test 157 K/CU MM 150-430 code = 756) MEAN PLATELET VOLUME (BEAKER) 8.0 fL 6.5-10.5 (test code = 754) NUCLEATED RED BLOOD CELLS 0 /100 WBC 0-0 (BEAKER) (test code = 413) NEUTROPHILS RELATIVE PERCENT 59 % (BEAKER) (test code = 429) LYMPHOCYTES RELATIVE PERCENT 27 % (BEAKER) (test code = 430) MONOCYTES RELATIVE PERCENT 8 % (BEAKER) (test code = 431) EOSINOPHILS RELATIVE PERCENT 5 % (BEAKER) (test code = 432) BASOPHILS RELATIVE PERCENT 1 % (BEAKER) (test code = 437) NEUTROPHILS ABSOLUTE COUNT 3.79 K/ L 1.80-8.00 (BEAKER) (test code = 670) LYMPHOCYTES ABSOLUTE COUNT 1.71 K/ L 1.48-4.50 (BEAKER) (test code = 414) MONOCYTES ABSOLUTE COUNT (BEAKER) 0.54 K/ L 0.00-1.30 (test code = 415) EOSINOPHILS ABSOLUTE COUNT 0.31 K/ L 0.00-0.50 (BEAKER) (test code = 416) BASOPHILS ABSOLUTE COUNT (BEAKER) 0.06 K/ L 0.00-0.20 (test code = 417) 0.00BASIC METABOLIC [id number] 06:43:00 Test Item Value Reference Range Interpretation Comments SODIUM (BEAKER) 132 meq/L 136-145 L (test code = 381) POTASSIUM (BEAKER) 5.2 meq/L 3.5-5.1 H Specimen slightly (test code = 379) hemolyzed CHLORIDE (BEAKER) 107 meq/L 98-107 (test code = 382) CO2 (BEAKER) (test 16 meq/L 22-29 L code = 355) BLOOD UREA NITROGEN 90 mg/dL 7-21 H (BEAKER) (test code = 354) CREATININE (BEAKER) 1.45 mg/dL 0.57-1.25 H Specimen slightly (test code = 358) hemolyzed GLUCOSE RANDOM 78 mg/dL 70-105 (BEAKER) (test code = 652) CALCIUM (BEAKER) 8.7 mg/dL 8.4-10.2 (test code = 697) EGFR (BEAKER) (test 47 mL/min/1.73 ESTIMA KRZYSZTOF GFR IS code = 1092) sq m NOT ACCURATE CREATININE CLEARANCE IN PREDICTING GLOMERULAR FILTRATION RATE . ESTIMATED GFR I S NOT APPLICABLE FOR DIALYSIS PATIEN TS. URINALYSIS W/ [id number] 03:12:00 Test Item Value Reference Range Interpretation Comments COLOR (BEAKER) (test code = Light Yellow 470) CLARITY (BEAKER) (test code = Clear 469) SPECIFIC GRAVITY UA (BEAKER) 1.009 1.001-1.035 (test code = 468) PH UA (BEAKER) (test code = 6.5 5.0-8.0 467) PROTEIN UA (BEAKER) (test code Negative Negative = 464) GLUCOSE UA (BEAKER) (test code Negative Negative = 365) KETONES UA (BEAKER) (test code Negative Negative = 371) BILIRUBIN UA (BEAKER) (test Negative Negative code = 462) BLOOD UA (BEAKER) (test code = Small Negative A 461) NITRITE UA (BEAKER) (test code Negative Negative = 465) LEUKOCYTE ESTERASE UA (BEAKER) Negative Negative (test code = 466) UROBILINOGEN UA (BEAKER) (test 0.2 mg/dL 0.2-1.0 code = 463) RBC UA (BEAKER) (test code = 28 /HPF 519) WBC UA (BEAKER) (test code = 54 /HPF 520) MUCUS (BEAKER) (test code = Rare 1574) SOURCE(BEAKER) (test code = Urine, Voided 8620) CHLORIDE, RANDOM [id number] 01:29:00 Test Item Value Reference Range Interpretation Comments CHLORIDE URINE (BEAKER) (test code = 62 meq/L 682) Reference Range: No NormalsCREATININE, RANDOM [id number] 01:29:00 Test Item Value Reference Range Interpretation Comments CREATININE URINE (BEAKER) (test 49.9 mg/dL code = 375) Reference Range: No NormalsPOTASSIUM, RANDOM [id number] 01:29:00 Test Item Value Reference Range Interpretation Comments POTASSIUM URINE (BEAKER) (test 18.3 meq/L code = 195) Reference Range: No NormalsSODIUM, RANDOM [id number] 01:29:00 Test Item Value Reference Range Interpretation Comments SODIUM URINE (BEAKER) (test code = 73 meq/L 243) Reference Range: No NormalsSEDIMENTATION [id number] 21:30:00 Test Item Value Reference Range Interpretation Comments SEDIMENTATION RATE, ERYTHROCYTE 10 mm/HR 0-40 (BEAKER) (test code = 766) C-REACTIVE [id number] 20:44:00 Test Item Value Reference Range Interpretation Comments C-REACTIVE PROTEIN (BEAKER) (test 0.11 mg/dL 0.00-0.50 code = 676) BASIC METABOLIC [id number] 15:53:00 Test Item Value Reference Range Interpretation Comments SODIUM (BEAKER) 130 meq/L 136-145 L (test code = 381) POTASSIUM (BEAKER) 4.9 meq/L 3.5-5.1 Specimen slightly (test code = 379) hemolyzed CHLORIDE (BEAKER) 106 meq/L 98-107 (test code = 382) CO2 (BEAKER) (test 14 meq/L 22-29 L code = 355) BLOOD UREA NITROGEN 84 mg/dL 7-21 H (BEAKER) (test code = 354) CREATININE (BEAKER) 1.65 mg/dL 0.57-1.25 H Specimen slightly (test code = 358) hemolyzed GLUCOSE RANDOM 102 mg/dL 70-105 (BEAKER) (test code = 652) CALCIUM (BEAKER) 9.0 mg/dL 8.4-10.2 (test code = 697) EGFR (BEAKER) (test 41 mL/min/1.73 ESTIMA KRZYSZTOF GFR IS code = 1092) sq m NOT ACCURATE CREATININE CLEARANCE IN PREDICTING GLOMERULAR FILTRATION RATE . ESTIMATED GFR I S NOT APPLICABLE FOR DIALYSIS PATIEN TS. CBC W/PLT COUNT & AUTO [id number] 15:45:00 Test Item Value Reference Range Interpretation Comments WHITE BLOOD CELL COUNT (BEAKER) 6.1 K/ L 4.0-10.0 (test code = 775) RED BLOOD CELL COUNT (BEAKER) 5.20 M/ L 4.20-5.80 (test code = 761) HEMOGLOBIN (BEAKER) (test code = 15.0 GM/DL 13.0-16.8 410) HEMATOCRIT (BEAKER) (test code = 45.4 % 40.0-50.0 411) MEAN CORPUSCULAR VOLUME (BEAKER) 87.3 fL 82.0-98.0 (test code = 753) MEAN CORPUSCULAR HEMOGLOBIN 28.8 pg 27.0-33.0 (BEAKER) (test code = 751) MEAN CORPUSCULAR HEMOGLOBIN CONC 33.0 GM/DL 32.0-36.0 (BEAKER) (test code = 752) RED CELL DISTRIBUTION WIDTH 16.4 % 10.3-14.2 H (BEAKER) (test code = 412) PLATELET COUNT (BEAKER) (test 165 K/CU MM 150-430 code = 756) MEAN PLATELET VOLUME (BEAKER) 8.4 fL 6.5-10.5 (test code = 754) NUCLEATED RED BLOOD CELLS 0 /100 WBC 0-0 (BEAKER) (test code = 413) NEUTROPHILS RELATIVE PERCENT 61 % (BEAKER) (test code = 429) LYMPHOCYTES RELATIVE PERCENT 27 % (BEAKER) (test code = 430) MONOCYTES RELATIVE PERCENT 7 % (BEAKER) (test code = 431) EOSINOPHILS RELATIVE PERCENT 5 % (BEAKER) (test code = 432) BASOPHILS RELATIVE PERCENT 0 % (BEAKER) (test code = 437) NEUTROPHILS ABSOLUTE COUNT 3.77 K/ L 1.80-8.00 (BEAKER) (test code = 670) LYMPHOCYTES ABSOLUTE COUNT 1.63 K/ L 1.48-4.50 (BEAKER) (test code = 414) MONOCYTES ABSOLUTE COUNT (BEAKER) 0.42 K/ L 0.00-1.30 (test code = 415) EOSINOPHILS ABSOLUTE COUNT 0.29 K/ L 0.00-0.50 (BEAKER) (test code = 416) BASOPHILS ABSOLUTE COUNT (BEAKER) 0.02 K/ L 0.00-0.20 (test code = 417) 0.00
--- OUTSIDE RECORDS SUMMARY | 2020-06-25 15:14 | XMS REPORT | Summary of Care ---
:1940 Author Organization [facility] Address [address] [place] [id number] Care Team Providers Name Role Phone AlisonClarenceo Primary Care Provider Reason for Visit Reason Comments LAB Exposure Encounter Details Date Type Department Care Team Description 06/19/2020 Laboratory Only [facility] Anabelle Medina, [employer]SEMBL[employer] [address] [place], [place] [id number] Exposure to Medicine - [facility], [facility] Fam Pob I SARS-associated [address] [place] [address] coronavir[address] s ([address] Dx) [place] [address] Allergies Not on Filedocumented as of this encounter (statuses as of 06/19/2020) Medications Not on filedocumented as of this encounter (statuses as of 06/19/2020) Active Problems Not on filedocumented as of this encounter (statuses as of 06/19/2020) Social History Tobacco Use Types Packs/Day Years Used Date Never Assessed Sex Assigned at Date Recorded Not on file COVID-19 Exposure Response Date Recorded In the last month, have you been in contact with Yes 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 documented as of this encounter Last Filed Vital Signs Not on filedocumented in this encounter Nursing Notes Tanmay Medina MA - 06/19/2020 7:00 PM CSTLisandro Curtis is a 80 year old male here for COVID Screening with a Nasopharyngeal Swab All droplet and contact precautions taken with appropriate PPE worn while interacting with patient. ? Goggles ? N95 Mask ? Gloves ? Gown RR 16 Pulse 72 Ox 97% Patient educated on plan of care for visit, swabbing technique, risks and benefits of test and length of time to receive results. Verbal consent obtained to perform test. CDC Fact Sheet for Patients nCoV Diagnostic Panel dated 10/02/2019 and Factsheet What to Do if Sick with COVID 19 09/12/19 provided. Bilate nares swabbed during COVID19 nasopharyngeal swab. Patient swabbed per appropriate nasopharyngeal technique, and patient tolerated well. Patient was discharged from the testing clinic in stable condition. TANMAY MEDINA MA 06/19/2020 4:36 PM OR IT RECRUITER documented in this encounter Plan of Treatment Name Type Priority Associated Diagnoses Order S chedule COVID-19 (MOLECULAR LAB Routine Exposure to Expected : 06/19/2020, TESTING SARS-associated Expires: 021 NUCLEIC ACID coronavirus AMPLIFICATION) Health Maintenance Due Date Last Done Comments Depression Screening 1950 DTaP,Tdap,and Td Vaccines (1 - Tdap) 1957 Zoster Recombinant Vaccine (SHINGRIX) (1 of 2) 1988 PNEUMOCOCCAL VACCINES 65+ (1 of 1 - PPSV23) 2003 INFLUENZA VACCINE (#1) 2020 documented as of this encounter Results Not on filedocumented in this encounter Visit Diagnoses Diagnosis Exposure to SARS-associated coronavirus - Primary documented in this encounter Additional Health Concerns Infection Onset Date Last Indicated Resolved Time COVID-19 Rule Out 06/19/2020 06/19/2020 documented as of this encounter Insurance Payer Benefit Plan / Subscriber ID Effective Phone Address T ype Group Dates [facility] [id number] 2020-Pres Co dicare Adv HEALTHCARE - MEDICARE ent HMO MANAGED MEDICARE ADVANTAGE documented as of this encounter
[2020-06-25 15:25] LABS: Albumin 2.8 g/dL (3.4-5.0); Bilirubin Direct 0.4 mg/dL (0-0.2); Bilirubin Total 0.8 mg/dL (0.2-1.0); Potassium 3.7 mmol/L (3.5-5.1); Protein, Total 6.1 g/dL (6.4-8.2)
--- NOTE | 2020-06-25 17:20 | RAD REPORT ---
EXAM DESCRIPTION: CT - Abdomen Pelvis W Contrast - 06/25/2020 5:03 pm CLINICAL HISTORY: Abdominal pain COMPARISON: 2019 TECHNIQUE: Computed axial tomography of the abdomen pelvis was obtained. 100 cc Isovue-300 was admin istered intravenously. Oral contrast was not requested which limits evaluation of bowel. All CT scans are performed using dose optimization technique as appropriate and may include automated exposure control or mA/KV adjustment according to patient size. FINDINGS: Moderate ground-glass opacities within the lung bases. The liver and spleen unremarkable. The pancreas is atrophic. 4.2 centimeter partially necrotic right renal mass has enlarged from the prior exam. Mild bilateral h ydronephrosis. The bladder has been resected with a neobladder present. Lymph node dissection is seen . There is no evidence of diverticulitis. 4 centimeter fluid collection within the musculature lateral to the proximal left femur IMPRESSION: Moderate ground-glass opacities within the lung bases may indicate Covid pneumonia 4.2 centimeter partially necrotic right renal mass probably neoplasm
--- NOTE | 2020-06-25 17:36 | ER ---
Nurse's Notes [facility] Name: Lisandro Livingston Age: 80 yrs Sex: Male : 1940 Arrival Date: 06/25/2020 Time: 14:01 Bed 14 Private MD: Diagnosis: Pneumonia, unspecified organism;Coronavirus infection, [id number];Nausea and vomiting;Dehydration Presentation: 06/25 14:07 Chief complaint: EMS states: pt from home, Covid POSITIVE tested 3 or 4 days ago, c/o tw2 N/V since last night. denies cough, fever, chills, sob, vs stable. Coronavirus screen: nausea, vomiting. Client presents with at least one sign or symptom that may indicate coronavirus-19. Standard/surgical mask placed on the client. Provider contacted for isolation considerations. Ebola Screen: Patient denies travel to an Ebola-affected area in the 21 days before illness onset. Initial Sepsis Screen: Does the patient meet any 2 criteria? RR > 20 per min. Does the patient have a suspected source of infection? No. Patient's initial sepsis screen is negative. Risk Assessment: Do you want to hurt yourself or someone else? Patient reports no desire to harm self or others. Onset of symptoms was June 25, 2020. 14:07 Method Of Arrival: EMS: [facility] tw2 14:07 Acuity: JUDIT 3 tw2 Triage Assessment: 14:01 General: Appears in no apparent distress. obese, Behavior is calm, cooperative, tw2 appropriate for age. Pain: Complains of pain in abdomen. GI: Reports lower abdominal pain, upper abdominal pain, nausea, vomiting. Historical: - Allergies: 14:11 NKDA; tw2 - Home Meds: 14:11 tamsulosin 0.4 mg Oral cp24 1 cap once daily [Active]; Sodium Bicarbonate 10GR tab RIS tw2 Oral 3 tabs three times a day [Active]; Pt is not compliant with medications [Active]; citalopram 10 mg tab 1 tab once daily [Active]; atorvastatin 40 mg Oral tab 1 tab once daily [Active]; amlodipine 2.5 mg tab 1 tab once daily [Active]; - PMHx: 14:11 Bladder cancer; Cancer; Hypertension; tw2 - Immunization history:: Adult Immunizations. - Social history:: Smoking status: . Screenin:12 Abuse screen: Denies threats or abuse. Nutritional screening: No deficits noted. tw2 Tuberculosis screening: No symptoms or risk factors identified. Fall Risk None identified. Assessment: 14:28 General: Appears in no apparent distress. Behavior is calm, cooperative, appropriate tw2 for age. Pain: Complains of pain in abdomen. Neuro: Level of Consciousness is awake, alert, obeys commands, Oriented to person, place, time, situation. Cardiovascular: Heart tones S1 S2 Patient's skin is warm and dry. Respiratory: Airway is patent Respiratory effort is even, unlabored, Respiratory pattern is regular, symmetrical, Breath sounds are clear bilaterally. GI: Abdomen is round non-distended, Bowel sounds present X 4 quads. Reports lower abdominal pain, upper abdominal pain, nausea, vomiting. : No signs and/or symptoms were reported regarding the genitourinary system. EENT: No signs and/or symptoms were reported regarding the EENT system. Derm: No signs and/or symptoms reported regarding the dermatologic system. Skin is dry. Musculoskeletal: Range of motion: intact in all extremities. 14:59 Reassessment: Patient appears in no apparent distress at this time. No changes from tw2 previously documented assessment. Patient and/or family updated on plan of care and expected duration. Pain level reassessed. 15:46 Reassessment: Patient appears in no apparent distress at this time. No changes from tw2 previously documented assessment. Patient and/or family updated on plan of care and expected duration. Pain level reassessed. 16:47 Reassessment: Patient appears in no apparent distress at this time. No changes from tw2 previously documented assessment. Patient and/or family updated on plan of care and expected duration. Pain level reassessed. 17:45 Reassessment: Patient appears in no apparent distress at this time. No changes from tw2 previously documented assessment. Patient and/or family updated on plan of care and expected duration. Pain level reassessed. 18:12 Reassessment: Patient appears in no apparent distress at this time. No changes from tw2 previously documented assessment. Patient and/or family updated on plan of care and expected duration. Pain level reassessed. 18:14 Reassessment: family Tori Walter #[phone] call if any questions pts is tw2 unable to answer. Vital Signs: 14:07 BP 121 / 57; Pulse 90; Resp 22; Temp 97.9(O); Pulse Ox 95% on R/A; Weight 77.11 kg (R); tw2 14:59 BP 126 / 51; Pulse 71; Resp 22; Pulse Ox 94% on R/A; tw2 15:46 BP 109 / 58; Pulse 85; Resp 27; Pulse Ox 94% on R/A; tw2 16:46 BP 113 / 58; Pulse 73; Resp 26; Pulse Ox 94% on R/A; tw2 17:45 BP 107 / 47; Pulse 77; Resp 20; Pulse Ox 93% on R/A; tw2 18:10 BP 100 / 52; Pulse 56; Resp 20; Temp 97.6(O); Pulse Ox 93% on R/A; tw2 ED Course: 14:01 Patient arrived in ED. as 14:01 [facility]C [facility] kb 14:01 Mikal Jenkins MD is Attending Physician. kb 14:02 Placed in gown. Bed in low position. residential monitor on. Pulse ox on. NIBP on. Warm tw2 blanket given. 14:07 Yuki Vila RN is Primary Nurse. tw2 14:09 Triage completed. tw2 14:11 Arm band placed on. tw2 14:28 Missed attempt(s): 22 gauge in right antecubital area. Bleeding controlled, band aid tw2 applied, catheter tip intact. Inserted saline lock: 20 gauge in right antecubital area, using aseptic technique. Blood collected. 17:35 Basil Riojas is Hospitalizing Provider. kb 19:03 Report given to FAVIOLA Laughlin. tw2 12 06:38 Primary Nurse role handed off by Yuki Vila RN sg Administered Medications: 12 14:30 Drug: NS 0.9% 500 ml Route: IV; Rate: bolus; Site: right antecubital; tw2 15:10 Follow up: Response: No adverse reaction; IV Status: Completed infusion; IV Intake: tw2 500ml 14:34 Drug: Zofran (Ondansetron) 4 mg Route: IVP; Site: right antecubital; tw2 16:49 Follow up: Response: No adverse reaction tw2 17:50 Drug: Decadron - Dexamethasone 10 mg Route: IVP; Site: right antecubital; tw2 18:01 Follow up: Response: No adverse reaction tw2 17:50 Drug: NS 0.9% 1000 ml Route: IV; Rate: 125 ml/hr; Site: right antecubital; tw2 18:07 Drug: Zithromax 500 mg Route: IVPB; Infused Over: 1 hrs; Site: right antecubital; tw2 Intake: 15:10 IV: 500ml; Total: 500ml. tw2 Outcome: 17:35 Decision to Hospitalize by Provider. 06/27 16:59 Patient left the ED. em Signatures: Karin Singleton, [employer] MIXER MUSHROOM-C GR[employer] MIXER MUSHROOM-Apolinar Hay RN RN Osmani Azevedo RN FAVIOLA Katina Solorzano Tara, RN RN tw2
--- NOTE | 2020-06-25 17:36 | EDPHYS ---
Physician Documentation [facility] Name: Lisandro Livingston Age: 80 yrs Sex: Male : 1940 Arrival Date: 06/25/2020 Time: 14:01 Bed 14 Private MD: ED Physician Mikal Jenkins HPI: 06/25 18:27 This 80 yrs old Male presents to ER via EMS with complaints of Nausea/Vomiting kb - covid+. 18:27 The patient presents to the emergency department with nausea, vomiting, abdominal pain. kb Onset: The symptoms/episode began/occurred last night. Possible causes: COVID. The symptoms are aggravated by nothing. The symptoms are alleviated by nothing. Associated signs and symptoms: Pertinent positives: abdominal pain, fever, nausea, vomiting. Severity of symptoms: At their worst the symptoms were mild moderate in the emergency department the symptoms are unchanged. The patient has not experienced similar symptoms in the past. The patient has been recently seen by a physician:. Pt's family reports pt was diagnosed with COVID 3 days ago. Started having nausea and vomiting last night and has been unable to tolerate anything by mouth. Historical: - Allergies: 14:11 NKDA; tw2 - Home Meds: 14:11 tamsulosin 0.4 mg Oral cp24 1 cap once daily [Active]; Sodium Bicarbonate 10GR tab RIS tw2 Oral 3 tabs three times a day [Active]; Pt is not compliant with medications [Active]; citalopram 10 mg tab 1 tab once daily [Active]; atorvastatin 40 mg Oral tab 1 tab once daily [Active]; amlodipine 2.5 mg tab 1 tab once daily [Active]; - PMHx: 14:11 Bladder cancer; Cancer; Hypertension; tw2 - Immunization history:: Adult Immunizations. - Social history:: Smoking status: . ROS: 18:26 Constitutional: Negative for fever, chills, and weight loss, Cardiovascular: Negative kb for chest pain, palpitations, and edema, Back: Negative for injury and pain, : Negative for injury, bleeding, discharge, and swelling, MS/Extremity: Negative for injury and deformity, Skin: Negative for injury, rash, and discoloration, Neuro: Negative for headache, weakness, numbness, tingling, and seizure. 18:26 Respiratory: Positive for cough, shortness of breath, Negative for dyspnea on exertion, hemoptysis, orthopnea, pleurisy, sputum production, wheezing. 18:26 Abdomen/GI: Positive for abdominal pain, nausea and vomiting, Negative for diarrhea. Exam: 18:26 Constitutional: This is a well developed, well nourished patient who is awake, alert, kb and in no acute distress. Head/Face: Normocephalic, atraumatic. Chest/axilla: Normal chest wall appearance and motion. Nontender with no deformity. No lesions are appreciated. Cardiovascular: Regular rate and rhythm with a normal S1 and S2. No gallops, murmurs, or rubs. Normal PMI, no JVD. No pulse deficits. Respiratory: Lungs have equal breath sounds bilaterally, clear to auscultation and percussion. No rales, rhonchi or wheezes noted. No increased work of breathing, no retractions or nasal flaring. Skin: Warm, dry with normal turgor. Normal color with no rashes, no lesions, and no evidence of cellulitis. MS/ Extremity: Pulses equal, no cyanosis. Neurovascular intact. Full, normal range of motion. Neuro: Awake and alert, GCS 15, oriented to person, place, time, and situation. Cranial nerves II-XII grossly intact. Motor strength 5/5 in all extremities. Sensory grossly intact. Cerebellar exam normal. Normal gait. 18:26 Abdomen/GI: Inspection: abdomen appears normal, Bowel sounds: normal, in all quadrants, Palpation: soft, in all quadrants, mild abdominal tenderness, in the abdomen diffusely. Vital Signs: 14:07 BP 121 / 57; Pulse 90; Resp 22; Temp 97.9(O); Pulse Ox 95% on R/A; Weight 77.11 kg (R); tw2 14:59 BP 126 / 51; Pulse 71; Resp 22; Pulse Ox 94% on R/A; tw2 15:46 BP 109 / 58; Pulse 85; Resp 27; Pulse Ox 94% on R/A; tw2 16:46 BP 113 / 58; Pulse 73; Resp 26; Pulse Ox 94% on R/A; tw2 17:45 BP 107 / 47; Pulse 77; Resp 20; Pulse Ox 93% on R/A; tw2 18:10 BP 100 / 52; Pulse 56; Resp 20; Temp 97.6(O); Pulse Ox 93% on R/A; tw2 MDM: 14:02 Patient medically screened. kb 17:36 Data reviewed: vital signs, nurses notes. Data interpreted: Pulse oximetry: on room air kb is 94 %. Interpretation: acceptable. Counseling: I had a detailed discussion with the patient and/or guardian regarding: the historical points, exam findings, and any diagnostic results supporting the discharge/admit diagnosis, lab results, radiology results, the need for further work-up and treatment in the hospital. 06/25 14:10 Order name: Basic Metabolic Panel 06/25 14:10 Order name: CBC with Diff 06/25 14:10 Order name: Hepatic Function 06/25 14:10 Order name: Lipase 06/25 15:33 Order name: Basic Metabolic Panel; Complete Time: 15:34 EDMS 06/25 15:33 Order name: Liver (Hepatic) Function; Complete Time: 15:34 EDMS 06/25 15:33 Order name: Lipase; Complete Time: 15:34 EDMS 06/25 15:33 Order name: CBC with Automated Diff; Complete Time: 15:34 EDMS 06/25 19:58 Order name: CRP la1 06/26 07:26 Order name: CBC with Automated Diff; Complete Time: 17:33 EDMS 06/26 07:26 Order name: CBC Smear Scan; Complete Time: 17:33 EDMS 06/26 07:26 Order name: Basic Metabolic Panel; Complete Time: 17:33 EDMS 06/26 07:26 Order name: C-Reactive Protein; Complete Time: 17:33 EDMS 06/26 07:26 Order name: Magnesium; Complete Time: 17:33 EDMS 06/25 14:10 Order name: IV Saline Lock; Complete Time: 14:34 kb 06/25 16:24 Order name: CT Abd/Pelvis - IV Contrast Only 06/25 17:22 Order name: CT; Complete Time: 18:00 EDMS 06/26 07:26 Order name: CORONAVIRUS EDNY 06/26 07:38 Order name: SARS-COV-2 RT PCR; Complete Time: 17:33 EDMS 06/26 16:44 Order name: Urinalysis; Complete Time: 17:33 EDMS 06/26 17:15 Order name: Urine Microscopic Only; Complete Time: 17:33 EDMS 06/27 04:24 Order name: Basic Metabolic Panel EDMS 06/27 04:24 Order name: C-Reactive Protein EDMS 06/27 04:24 Order name: Magnesium EDMS 06/27 04:31 Order name: CBC with Automated Diff EDMS 06/25 14:10 Order name: Labs collected and sent; Complete Time: 14:34 kb Administered Medications: 14:30 Drug: NS 0.9% 500 ml Route: IV; Rate: bolus; Site: right antecubital; tw2 15:10 Follow up: Response: No adverse reaction; IV Status: Completed infusion; IV Intake: tw2 500ml 14:34 Drug: Zofran (Ondansetron) 4 mg Route: IVP; Site: right antecubital; tw2 16:49 Follow up: Response: No adverse reaction tw2 17:50 Drug: Decadron - Dexamethasone 10 mg Route: IVP; Site: right antecubital; tw2 18:01 Follow up: Response: No adverse reaction tw2 17:50 Drug: NS 0.9% 1000 ml Route: IV; Rate: 125 ml/hr; Site: right antecubital; tw2 18:07 Drug: Zithromax 500 mg Route: IVPB; Infused Over: 1 hrs; Site: right antecubital; tw2 Disposition: 06/27 19:45 Co-signature as Attending Physician, Mikal Jenkins MD. rn Disposition: 06/25/20 17:35 Hospitalization ordered by Basil Riojas for Observation. Preliminary diagnosis are Pneumonia, unspecified organism, Coronavirus infection, unspecified - COVID-19, Nausea and vomiting, Dehydration. - Bed requested for [facility] ER HOLD. - Status is Observation. em - Condition is Stable. - Problem is new. - Symptoms are unchanged. Signatures: Dispatcher [employer] EDNY Karin Singleton, FOLDING MACHINE SETTER-C FOLDING MACHINE SETTER-Apolinar Hay RN Osmani Magallanes RN RN em Nieto, Roman, MD MD rn Wise, Tara, RN RN tw2 Corrections: (The following items were deleted from the chart) 06/25 19:40 17:35 Hospitalization Ordered by Basil Riojas for Observation. Preliminary diagnosis sg is Pneumonia, unspecified organism; Coronavirus infection, unspecified - COVID-19; Nausea and vomiting; Dehydration. Bed requested for Telemetry/Medrg (observation). Status is Observation. Condition is Stable. Problem is new. Symptoms are unchanged. kb 06/27 16:59 06/25 19:40 06/25/2020 17:35 Hospitalization Ordered by Basil Riojas for Observation. em Preliminary diagnosis is Pneumonia, unspecified organism; Coronavirus infection, unspecified - COVID-19; Nausea and vomiting; Dehydration. Bed requested for [facility] ER HOLD. Status is Observation. Condition is Stable. Problem is new. Symptoms are unchanged. sg
[2020-06-25] MEDS ORDERED: dexAMETHasone 10 MG/ML VIAL ONE (17:54)
[2020-06-25] MEDS ORDERED: NA CHLORIDE 0.9% 1,000 ML ONE (17:54)
[2020-06-25] MEDS ORDERED: AZITHROMYCIN IV 500 MG in NA CHLORIDE 0.9% 250 ML IVPB ONE (18:00)
[2020-06-25] MEDS ORDERED: ONDANSETRON 4 MG/2 ML VIAL IV PRN (20:37)
[2020-06-25] MEDS ORDERED: ACETAMINOPHEN 500 MG TAB PO PRN (20:37)
[2020-06-25] MEDS ORDERED: BENZONATATE 100 MG CAP PO PRN (20:37)
[2020-06-25] MEDS ORDERED: NA CHLORIDE 0.9% 1,000 ML IV SCH (20:37)
[2020-06-25] MEDS: METHYLPREDNISOLONE 40 MG INJ IV SCH (21:00)
[2020-06-25] MEDS: ASCORBIC ACID 500 MG TABLET PO SCH (21:00)
[2020-06-25] MEDS: MELATONIN 5 MG TABLET PO SCH (21:00)
--- NOTE | 2020-06-25 21:00 | P.HP ---
Certification for Inpatient Patient admitted to: Inpatient With expected LOS: >2 Midnights Patient will require the following post-hospital care: None Practitioner: I am a practitioner with admitting privileges, knowledge of patient current condition, hospital course, and medical plan of care. Services: Services provided to patient in accordance with Admission requirements found in Title 42 Section 412.3 of the Code of Federal Regulations <Srinath Chinchilla - Last Filed: 06/25/20 21:00> Patient History Date of Service: 06/25/20 Reason for admission: Cota virus pneumonia with hypoxia History of Present Illness: 80-year-old male with history of hypertension, bladder cancer with neobladder presents emergency department for shortness of breath. Daughter reports the patient tested positive for Cota virus approximately 3-4 days ago and he has been becoming more and more short of breath since then. Patient was evaluated in the emergency department, does appear mildly dehydrated clinically. Labs significant for creatinine 1.45, BUN 39, GFR 47. Patient's baseline GFR appears to be around 55. Patient was also complaining of nausea and vomiting, CT scan was obtained which revealed bilateral ground-glass opacities within the lung bases in addition to a 4.2 cm partially necrotic right renal mass that has enlarged from prior exam which was in 2017. Patient with mild bilateral hydronephrosis which was again apparent on the 2017 exam. Additional 26 mm right adrenal lesion consistent with metastasis also noted. ED provider wishes to admit patient for dyspnea, cota virus, nausea, vomiting dehydration. When I saw the patient in the emergency department he was awake, alert. There is no family at the bedside and patient is Ethiopian-speaking only. Patient was 88% on room air when I saw him. Attempted to use language line translating service but patient did not appear to be able to understand them. Discussed case with family over the phone who are poor historians but report that there were unaware of renal mass. Patient will be admitted for further evaluation and management. Case was discussed with hospitalist attending, attempted to reach out to nephrology on-call but was unable to reach them. - Past Medical/Surgical History Diabetic: No -: Chronic renal disease -: Bladder Cancer, [facility] Oncology-Dr. Antolin Valera -: Varicose veins -: HTN -: Depression with anxiety -: Nicotine dependence -: Ryan Cataracts sx -: Bladder reconstruction -: Bladder surgery Psychosocial/ Personal History: . 5 children - Family History Mother -: Lung disease, Diabetes Father -: Hypertension, Lung disease, Diabetes - Social History Alcohol use: No CD- Drugs: No Caffeine use: Yes Place of Residence: Home <Srinath Chinchilla - Last Filed: 06/25/20 21:00> Date of Service: 07/03/20 <deshawnevie - Last Filed: 07/03/20 18:20> Allergies No Known Allergies Allergy (Unverified 05/27/19 08:15) Home Medications: Acetaminophen [Tylenol Extra Strength] 500 mg PO Q4H PRN 05/26/19 Amlodipine Besylate [Norvasc] 2.5 mg PO DAILY 05/26/19 Atorvastatin Calcium 40 mg PO BEDTIME 05/26/19 Gabapentin 300 mg PO Q8H PRN 05/26/19 Loratadine 10 mg PO DAILY PRN 05/26/19 Apixaban [Eliquis] 5 mg PO BID #60 tablet 05/27/19 predniSONE [Deltasone] 20 mg PO SEECOM 14 Days #21 tab 06/27/20 Review of Systems is unable to be obtained <Srinath Chinchilla - Last Filed: 06/25/20 21:00> Physical Examination - Physical Exam General: Alert, In no apparent distress HEENT: Atraumatic, PERRLA, Other (Mucous membranes dry) Neck: Supple, 2+ carotid pulse no bruit, No LAD Respiratory: Normal air movement, Diminished (Bilaterally) Cardiovascular: Regular rate/rhythm, Normal S1 S2 Capillary refill: <2 Seconds Gastrointestinal: Normal bowel sounds, No tenderness Musculoskeletal: No tenderness Integumentary: No rashes Neurological: Normal speech, Normal tone - Studies Laboratory Data (last 24 hrs) 06/25/20 14:45: WBC 2.8 L, Hgb 14.8, Hct 42.3, Plt Count 97 L 06/25/20 14:45: Sodium 136, Potassium 3.7, BUN 39 H, Creatinine 1.45 H, Glucose 113 H, Total Bilirubin 0.8, AST 50 H, ALT 34, Alkaline Phosphatase 112, Lipase 56 L <Srinath Chinchilla - Last Filed: 06/25/20 21:00> Assessment and Plan - Plan Assessment COVID pneumonia with hypoxia DOMINIQUE on CKD 3 4.2 cm partially necrotic right renal mass with suspected metastasis to right adrenal gland (26mm lesion) Hypertension Plan COVID pneumonia with hypoxia: Pulmonology consult in place, continue with supplemental oxygen as needed. IV steroids, oral supplements. Platelet count low at this time, continue with SCDs for DVT prophylaxis. Daily room air saturations, daily CRP. Appreciate further input from pulmonology. DOMINIQUE on CKD 3: Continue gentle hydration overnight. Recheck chemistry with morning labs. Nephrology consult as necessary. 4.2 cm partially necrotic right renal mass with suspected metastasis to right adrenal gland (26mm lesion): Will discuss with oncoming hospitalist team in the morning. Will likely need to discuss with nephrology/oncology for possible biopsy. This may be best completed on outpatient basis. Patient without elevated white blood cell count, signs of infection or abdominal/flank pain. Continue to monitor closely. Hypertension: Obtain and continue home medications. Discharge Plan: Home Plan to discharge in: 72 Hours - Advance Directives Does patient have a Living Will: No Does patient have a Durable POA for Healthcare: No - Code Status/Comfort Care Code Status Assessed: Yes (Full code) Critical Care: No Time Spent Managing Pts Care (In Minutes): 55 <Srinath Chinchilla - Last Filed: 06/25/20 21:00> Physician Review: Patient Assessed, Agree with Above Assessment and Plan Physician Review Additional Text: COVID pneumonia Renal masses. Plan; IV steroid Supportive measures <evie hess - Last Filed: 07/03/20 18:20>
[2020-06-25 21:37] VITALS: BMI 37.8
[2020-06-25] MEDS ORDERED: ASCORBIC ACID 500 MG TABLET ONE (22:35)
[2020-06-25] MEDS ORDERED: METHYLPREDNISOLONE 40 MG INJ ONE (22:36)
[2020-06-26] MEDS ORDERED: NA CHLORIDE 0.9% 1,000 ML ONE (03:27)
[2020-06-26 05:35] LABS: Absolute Lymphocytes (CBC) 0.6 K/uL (0.7-4.9); Basophils % 0.2 % (0-1.3); C-Reactive Protein 72.5 mg/L (<3.00); Hematocrit 45.3 % (39.6-49.0); Lymphocytes % 34.1 % (15.3-44.8); MPV 9.4 fL (7.6-11.3); Magnesium 2.1 mg/dL (1.8-2.4); Potassium 4.6 mmol/L (3.5-5.1); RBC Red Blood Cell Count 4.98 M/uL (4.33-5.43)
[2020-06-26 06:42] LABS: Blood Morphology Comment NOT SEEN (NOT SEEN); Platelet Estimate ADEQ; White Blood Cell Scan OK (OK)
[2020-06-26] MEDS ORDERED: VITAMIN D 1000 UNIT TAB ONE (07:47)
[2020-06-26] MEDS ORDERED: ZINC SULFATE 220 MG CAP ONE (07:47)
[2020-06-26] MEDS ORDERED: ASCORBIC ACID 500 MG TABLET ONE ×3 (07:47→20:44)
[2020-06-26] MEDS ORDERED: METHYLPREDNISOLONE 40 MG INJ ONE ×2 (07:48→20:44)
[2020-06-26] MEDS: METHYLPREDNISOLONE 40 MG INJ IV SCH ×2 (09:00→21:45)
[2020-06-26] MEDS: ASCORBIC ACID 500 MG TABLET PO SCH ×3 (09:00→21:45)
[2020-06-26] MEDS: VITAMIN D 1000 UNIT TAB PO SCH (09:00)
[2020-06-26] MEDS: ZINC SULFATE 220 MG CAP PO SCH (09:00)
[2020-06-26] MEDS ORDERED: PNEUMOCOCCAL VACCINE 0.5 ML IMVAC ONE ×2 (10:00→11:59)
[2020-06-26] MEDS ORDERED: ACETAMINOPHEN 500 MG TAB PO PRN (11:13)
[2020-06-26] MEDS ORDERED: ACETAMINOPHEN 500 MG TAB ONE (11:29)
--- NOTE | 2020-06-26 12:40 | P.CNS ---
Date of Consult: 06/26/20 Reason for Consult: Pneumonia due to cota virus Chief Complaint: Cota virus pneumonia with hypoxia History of Present Illness: Patient is 80 years of age history of hypertension bladder cancer recently tested with cota virus became progressively more shortness of breath and was admitted from the emergency room with hypoxemia some damage to the lungs from cota virus currently doing better Allergies No Known Allergies Allergy (Unverified 05/27/19 08:15) Home Medications: Acetaminophen [Tylenol Extra Strength] 500 mg PO Q4H PRN 05/26/19 Amlodipine Besylate [Norvasc] 2.5 mg PO DAILY 05/26/19 Atorvastatin Calcium 40 mg PO BEDTIME 05/26/19 Gabapentin 300 mg PO Q8H PRN 05/26/19 Loratadine 10 mg PO DAILY PRN 05/26/19 Amoxicillin/Potassium Clav [Augmentin 875-125 Tablet] 1 each PO BID #14 tablet 05/27/19 Apixaban [Eliquis] 5 mg PO BID #60 tablet 05/27/19 Aspirin [Adult Low Dose Aspirin EC] 81 mg PO DAILY #30 tablet. 05/27/19 - Past Medical/Surgical History Diabetic: No -: Chronic renal disease -: Bladder Cancer, [facility] Oncology-Dr. Antolin Valera -: Varicose veins -: HTN -: Depression with anxiety -: Nicotine dependence -: Possible kidney cancer necrotic mass in the right kidney -: Ryan Cataracts sx -: Bladder reconstruction -: Bladder surgery Psychosocial/ Personal History: . 5 children - Family History Mother Medical History: Lung disease, Diabetes Father Medical History: Hypertension, Lung disease, Diabetes - Social History Smoking Status: Unknown if ever smoked Alcohol use: No CD- Drugs: No Caffeine use: Yes Place of Residence: Home Review of Systems is unable to be obtained Physical Examination Temp Pulse Resp BP Pulse Ox 97.7 F 57 24 H 103/57 L 91 06/26/20 11:59 06/26/20 11:59 06/26/20 11:59 06/26/20 11:59 06/26/20 11:59 General: Alert, In no apparent distress Respiratory: Clear to auscultation bilaterally Laboratory Data (last 24 hrs) 06/25/20 14:45: WBC 2.8 L, Hgb 14.8, Hct 42.3, Plt Count 97 L 06/25/20 14:45: Sodium 136, Potassium 3.7, BUN 39 H, Creatinine 1.45 H, Glucose 113 H, Total Bilirubin 0.8, AST 50 H, ALT 34, Alkaline Phosphatase 112, Lipase 56 L - Problems (1) Pneumonia due to 2019 novel coronavirus Current Visit: Yes Status: Acute Plan: The 1 years of age multiple medical problems including possibility of renal cancer admitted with worsening dyspnea most likely has pneumonia from cota virus patient has mild renal insufficiency saturation satisfactory on room air for PE level is 72 in a [place] satisfactory recommend possible discharge today on prednisone 20 mg twice a day for a week and then 10 mg twice a day patient is on anticoagulants follow with me in 1 or 2 weeks
[2020-06-26 16:14] LABS: Urine Appearance CLEAR; Urine Bilirubin NEGATIVE (NEG); Urine Blood 2+ (NEG); Urine Color YELLOW; Urine Glucose NEGATIVE (NEG); Urine Protein TRACE (NEG); Urine pH 6.5 (5.0-7.0)
[2020-06-26 16:43] LABS: Urine Microscopic Reflex ORDER UMIC
[2020-06-26 17:14] LABS: Urine Amorphous Sediment 1+ /HPF (NONE SEEN); Urine Bacteria 20-50 /HPF (NONE SEEN); Urine RBC 20-50 /HPF (NONE SEEN)
--- NOTE | 2020-06-26 17:14 | P.PN ---
Subjective Date of Service: 06/26/20 Chief Complaint: Siegel virus pneumonia with hypoxia Subjective: No new changes (feels about the same as yesterday, reports headache, denies fever/chills, denies diarrhea) Review of Systems 10-point ROS is otherwise unremarkable Physical Examination - Vital Signs Temperature: 97.8 F Blood Pressure: 119/57 Pulse: 57 Respirations: 24 Pulse Ox (%): 92 - Physical Exam General: Alert, In no apparent distress, Oriented x3 HEENT: Sclerae nonicteric Respiratory: Other (non-labored on RA) Cardiovascular: No edema, Regular rate/rhythm Gastrointestinal: Soft and benign, No tenderness Musculoskeletal: No tenderness Integumentary: No rashes Neurological: Normal speech, Normal affect, Other (hard of hearing) Assessment & Plan Physician Review Additional Text: COVID pneumonia with hypoxia DOMINIQUE on CKD 3 4.2 cm partially necrotic right renal mass with suspected metastasis to right adrenal gland (26mm lesion) Hypertension Plan COVID pneumonia with hypoxia: continue O2 as needed, solumedrol trend CRP pulm consulted desaturated when ambulating DOMINIQUE on CKD 3: slight improvement overnight with gentle hydration 4.2 cm partially necrotic right renal mass with suspected metastasis to right adrenal gland (26mm lesion): discussed with urology - no current issue / acute issue, can continue to be evaluated on outpatient basis. Pt denies any renal issues/cancer niece reports patient's oldest daughter stated he has h/o 3 cancers (prostate, bladder, and unsure which is 3rd, but niece believes this kidney lesion was known before) difficult to converse with patient due to hard of hearing and language barrier, unable to hear driver recruiter through ipad dispo: anticipate dc home with O2 tomorrow
[2020-06-26] MEDS: MELATONIN 5 MG TABLET PO SCH (21:15)
[2020-06-27 04:10] LABS: Absolute Lymphocytes (CBC) 0.6 K/uL (0.7-4.9); Basophils % 0.1 % (0-1.3); Hematocrit 46.3 % (39.6-49.0); Lymphocytes % 11.8 % (15.3-44.8); MPV 9.3 fL (7.6-11.3)
[2020-06-27 04:23] LABS: C-Reactive Protein 38.9 mg/L (<3.00); Magnesium 2.3 mg/dL (1.8-2.4); Potassium 4.7 mmol/L (3.5-5.1)
[2020-06-27] MEDS ORDERED: METOPROLOL TAR 25 MG TAB ONE (05:04)
[2020-06-27] MEDS ORDERED: ZINC SULFATE 220 MG CAP ONE (08:36)
[2020-06-27] MEDS ORDERED: VITAMIN D 1000 UNIT TAB ONE (08:36)
[2020-06-27] MEDS ORDERED: METHYLPREDNISOLONE 40 MG INJ ONE (08:37)
[2020-06-27] MEDS ORDERED: ASCORBIC ACID 500 MG TABLET ONE ×2 (08:37→14:01)
[2020-06-27] MEDS: ZINC SULFATE 220 MG CAP PO SCH (09:00)
[2020-06-27] MEDS: ASCORBIC ACID 500 MG TABLET PO SCH ×2 (09:00→13:57)
[2020-06-27] MEDS: METHYLPREDNISOLONE 40 MG INJ IV SCH (09:00)
[2020-06-27] MEDS: VITAMIN D 1000 UNIT TAB PO SCH (09:00)
[2020-06-27 10:13] VITALS: BP 124/59; TEMP 97.5
--- NOTE | 2020-06-27 11:49 | EKG ---
Test Date: 2020-06-25 Test Time: 22:11:53 [place] Gang Sawyer: WEN MEASUREMENT RESULTS: Intervals: Rate: 57 KS: 192 QRSD: 86 QT: 416 QTc: 404 [place]: P: 57 KS: 192 QRS: -5 T: 1 INTERPRETIVE STATEMENTS: Sinus bradycardia Otherwise normal ECG Compared to ECG 05/26/2019 21:07:17 Atrial fibrillation no longer present ST (T wave) deviation no longer present Electronically Signed On 06-27-20 11:40:53 SUPPLY CHAIN SYSTEMS MANAGER by Jeremy Abreu
[2020-06-27 12:35] VITALS: O2SAT 93
--- NOTE | 2020-06-27 12:36 | P.PN ---
Subjective Date of Service: 06/27/20 Chief Complaint: Siegel virus pneumonia with hypoxia Subjective: Improving (Patient is doing much better oxygenation satisfactory) Review of Systems General: Weakness Respiratory: Shortness of Breath Physical Examination - Vital Signs Temperature: 97.5 F Blood Pressure: 124/59 Pulse: 52 Respirations: 21 Pulse Ox (%): 92 Assessment & Plan - Problems (Diagnosis) (1) Pneumonia due to 2019 novel coronavirus Current Visit: Yes Status: Acute Plan: Patient admitted with pneumonia due to coronal virus is clinically doing better plan to discharge home on prednisone check for oxygen if needed follow-up with me in 1 week CRP has decline patient has chronic renal failure resume his home medications follow with me in a week
--- NOTE | 2020-06-27 14:54 | P.DS ---
Admission Date: 06/25/20 Discharge Date: 06/27/20 Disposition: ROUTINE DISCHARGE Discharge Condition: GOOD Reason for Admission: Siegel virus pneumonia with hypoxia Consultations: Pulmology - Dr. Roldan Procedures: CT Abd/pelvis (06/25): Moderate ground-glass opacities within the lung bases. The liver and spleen unremarkable. The pancreas is atrophic. 4.2 centimeter partially necrotic right renal mass has enlarged from the prior exam. Mild bilateral hydronephrosis. The bladder has been resected with a neobladder present. Lymph node dissection is seen. 26 millimeter right adrenal lesion consistent with a metastasis Problem List: COVID pneumonia with hypoxia DOMINIQUE on CKD 3 4.2 cm partially necrotic right renal mass with suspected metastasis to right adrenal gland (26mm lesion) Hypertension Brief History of Present Illness: 80yo male, PMH: HTN, bladder cancer with neobladder presented to ED due to worsening SOB. He has a few family members who tested positive for COVID-19 in the past few days. He was found to have COVID-19 pneumonia with hypoxia to 88% on RA. Labs significant for creatinine 1.45, BUN 39, GFR 47. Patient's baseline GFR appears to be around 55. CT scan was obtained which revealed bilateral ground-glass opacities within the lung bases in addition to a 4.2 cm partially necrotic right renal mass that has enlarged from prior exam which was in 2017. Patient with mild bilateral hydronephrosis which was again apparent on the 2017 exam. Additional 26 mm right adrenal lesion consistent with metastasis also noted. Hospital Course: Patient and family were not completely sure on patient's past medical history. He was treated for his COVID pneumonia with oxygen and IV solumedrol. He did well on room air and only desaturated when moving around. His CRP downtrended, home oxygen was set up, and patient was discharged home to resume home eliquis and continue with prednisone for 2 weeks. He is to f/u with Dr. Roldan in the next 1-2 weeks. He was incidentally found to have a renal mass and lesion on his adrenal gland concerning for metastasis. Patient reported no prior knowledge of this, however, his niece, Tori, reported she spoke with the patient's oldest daughter who stated he had a history of 3 cancers (prostate, bladder, and she was unsure of 3rd one, but believes it was kidney). The patient apparently stopped going to see his oncologist and pulmonology technician in [place] for unknown reasons. He later stated he doesn't have a car to drive to [place] anymore. The case was briefly reviewed with Dr. Hernandez, urology, who stated patient can follow up with him as outpatient. This information was given to the patient and discussed with his niece prior to discharge. Vital Signs/Physical Exam: Temp Pulse Resp BP Pulse Ox 97.5 F 52 21 H 124/59 L 92 06/27/20 12:36 06/27/20 12:36 06/27/20 12:36 06/27/20 12:36 06/27/20 12:36 General: Alert, In no apparent distress, Oriented x3 HEENT: Sclerae nonicteric Respiratory: Other (non-labored on RA) Cardiovascular: No edema, Regular rate/rhythm Integumentary: No rashes Neurological: Normal speech, Normal affect, Other (hard of hearing) Laboratory Data at Discharge: WBC 4.9 K/uL (4.3-10.9) D 06/27/20 03:19 Hgb 15.7 g/dL (13.6-17.9) 06/27/20 03:19 Hct 46.3 % (39.6-49.0) 06/27/20 03:19 Plt Count 101 K/uL (152-406) L 06/27/20 03:19 Sodium 135 mmol/L (136-145) L 06/27/20 03:19 Potassium 4.7 mmol/L (3.5-5.1) 06/27/20 03:19 BUN 65 mg/dL (7-18) H D 06/27/20 03:19 Creatinine 1.56 mg/dL (0.55-1.3) H 06/27/20 03:19 Glucose 158 mg/dL (74-106) H 06/27/20 03:19 Magnesium 2.3 mg/dL (1.8-2.4) 06/27/20 03:19 Total Bilirubin Cancelled 06/25/20 Unknown AST Cancelled 06/25/20 Unknown ALT Cancelled 06/25/20 Unknown Alkaline Phosphatase Cancelled 06/25/20 Unknown Lipase Cancelled 06/25/20 Unknown Home Medications: RX: Acetaminophen [Tylenol Extra Strength] 500 mg PO Q4H PRN 05/26/19 RX: Amlodipine Besylate [Norvasc] 2.5 mg PO DAILY 05/26/19 RX: Atorvastatin Calcium 40 mg PO BEDTIME 05/26/19 RX: Gabapentin 300 mg PO Q8H PRN 05/26/19 RX: Loratadine 10 mg PO DAILY PRN 05/26/19 RX: Apixaban [Eliquis] 5 mg PO BID #60 tablet 05/27/19 predniSONE [Deltasone] 20 mg PO SEECOM 14 Days #21 tab 06/27/20 New Medications: predniSONE [Deltasone] 20 mg PO SEECOM 14 Days #21 tab Patient Discharge Instructions: follow up with Dr. Roldan (Pulmonology) in 1-2 weeks. Call his office to schedule appointment. Follow up with Urologist (Dr. Mayank Hernandez) in [place] in the next 3-4 weeks - to follow up on the lesion on your right kidney. New medications: prednisone - 20mg twice a day for 7 days, then 20mg once a day for 7 days. Diet: AHA Activity: Ad vitor Followup: Javier Roldan MD [ACTIVE - CAN ADMIT] - NONE,NONE [Primary Care Provider] - Mayank Hernandez [COURTESY - CAN ADMIT] - Time spent managing pt's care (in minutes): 40
== END 2020-06-27 16:00 | disposition home or self-care (01) | DRG 177 ==
LOC: ER 13:58 → ERHOLD 19:55
PROVIDERS: ADMIT Internal Medicine; ATTEND Hospitalist
DX: U07.1 COVID-19 (principal); J12.89 Other viral pneumonia; N13.30 Unspecified hydronephrosis; C79.71 Secondary malignant neoplasm of right adrenal gland; N17.9 Acute kidney failure, unspecified; I12.9 Hypertensive chronic kidney disease with stage 1 through stage 4 chronic kidney disease, or unspecified chronic kidney disease; N18.30 Chronic kidney disease, stage 3 unspecified; E86.0 Dehydration; N28.9 Disorder of kidney and ureter, unspecified; Z91.14 Patient's other noncompliance with medication regimen; Z79.899 Other long term (current) drug therapy; Z85.51 Personal history of malignant neoplasm of bladder; Z79.82 Long term (current) use of aspirin; Z79.01 Long term (current) use of anticoagulants; Z85.46 Personal history of malignant neoplasm of prostate; Z85.528 Personal history of other malignant neoplasm of kidney; Z79.52 Long term (current) use of systemic steroids
CPT/HCPCS: 36415; 74177; 80048; 80076; 81003; 81015; 83690; 83735; 85025; 86140; 87086; 87088; 90732; 93005; 96361; 96374; 96375; 99284; J0456; J1100; J2405; J2920; J7030; J7040; J7050; Q9967; U0003

== ENCOUNTER 2020-07-06 20:58 | Inpatient (IN) | payer MEDICARE, OTHER ==
--- OUTSIDE RECORDS SUMMARY | 2020-07-06 21:01 | XMS REPORT | Clinical Summary ---
:1940 Author Organization [facility] Address [address] [place] [address] Care Team Providers Name Role Phone Donte Rosas MD Primary Care Provider Donte Rosas MD Unavailable Allergies Active Allergy Reactions Severity Noted Date Comments Darci Inhibitors Other (See Comments) High 07/27/2015 Hyper kalemia per [facility] file Medications Medication Sig Dispensed Refills [...] YRS Completed 06/29/2015 Implants Implanted Type Area Relay Dispatcher Device Shelf Model / Identifier Expiration Serial / Date Lot Mynxgrip Vascular Closure Device Df Cardiovascular Left: [id number] 01/16/2019 [id number] / Implanted: Qty: 1 on 01/30/2017 by Filipe Koenig MD at [facility] Groin / [id number] Description:SFA Mynxgrip Vascular Closure Device Cardiovascular Left: CARDINAL [id number] 08/19/2019 / Implanted: Qty: 1 on 10/02/2017 by Filipe [facility]enig [facility] MARS [id number] Description:LSFA Matrix Floseal Hemo W/O Ndl 10 [id number] - [id number] Cement/Fi ller/Adhesive Left: Leg GARCIA:BIOSCI 06/22/2019 [id number] / Implanted: Qty: 1 on 01/28/2018 by Filipe Koenig MD at [facility] / [id number] Description:HEMOSTATIC MATRIX FLOSEAL Synergy Stents-Peripheral [place] [id number] / Implanted: Qty: 1 on 01/30/2017 by Filipe Koenig MD at [facility] [employer] / [id number] Description:Left PT Promus Premier Stents-Peripheral [place] [id number] / Implanted: Qty: 1 on 01/30/2017 by Filipe Koenig MD at [facility] [employer] / [id number] Description:Left PT Promus Premier Stents-Peripheral [place] [id number] / Implanted: Qty: 1 on 01/30/2017 by Filipe Koenig MD at [facility] [employer] / [id number] Description:Left PT Promus Premier Stents-Peripheral [place] [id number] / Implanted: Qty: 1 on 01/30/2017 by Filipe Koenig MD at [facility] [employer] / [id number] Description:Left PT Results Not on fileafter 07/06/2019 Insurance Payer Benefit Plan / Subscriber ID Effective Dates Phone Addre ss Type Group [facility] - AARP/MEDICARE [id number] 2018-Present MEDICARE MGD CARE COMPLETE Ever Personal/Family Self 1940 [address] (Home) [phone] [place], [place] (Work) [address] Advance Directives For more information, please contact: [phone] Code Status Date Activated Date Inactivated Comments [...]
--- OUTSIDE RECORDS SUMMARY | 2020-07-06 21:01 | XMS REPORT | Clinical Summary ---
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
--- OUTSIDE RECORDS SUMMARY | 2020-07-06 21:04 | XMS REPORT | Continuity of Care Document ---
:1940 Author Organization [facility] t Address 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[facility] ia 01-29 [facility] - 00:[facility]: Medical 00 [place] Lower Lower Disease Active [facility] extremity extremity 01-28 [facility] - pain, left pain, left 00:00: Me dical 00 [place] 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 lower limb 7-07 [facility] - ischemia ischemia 00:00: Medica l 00 Center Cellulitis Cellulitis Disease Active [facility] of foot of foot 7 [facility] 00:[facility]: Medical 00 [place] PAD PAD Disease Active [facility] (periphera (periphera 6-30 [facility] - l artery l artery 00:00: Medica l disease) disease) 00 Center Cellulitis Cellulitis Disease Active [facility] and and 6 [facility] - abscess of abscess of 00:00: Me dical foot foot 00 Center HTN HTN Disease Active [facility] (hypertens (hypertens 6-24 [facility] - ion) ion) 00:00: Medical 00 [place] Hydronephr Hydronephr Disease Active [facility] osis osis 6-24 [facility] - 00:[facility]: Medical 00 [place] Depression Depression Disease Active [facility] 6-24 [facility] - 00:[facility]: Medical 00 [place] Urinary Urinary Disease Active [facility] tract tract 6-23 [facility] - infection, infection, 00:00: Me dical site site 00 [place] unspecifie unspecifie d d Urinary Urinary Disease Active [facility] obstructio obstructio 1-08 [facility] - n n 00:00: Medical 00 [place] Hyperkalem Hyperkalem Disease Active 2014-[address] ia ia 2-10 [facility] - 00:00: Medical 00 [place] Hyponatrem Hyponatrem Disease Active 2014-[address] ia ia 2-10 [facility] - 00:00: Medical 00 [place] Chronic Chronic Disease Active 2014-[address] [facility] [address] kidney kidney 2-10 [facility] - disease, disease, 00:00: Medica l stage 3 stage 3 00 Center Cellulitis Cellulitis Disease Active 2014-[address] of left of left 2-10 [facility] - foot foot 00:00: Medical 00 [place] 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 2-10 [facility] - 00:00: Medical 00 [place] CKD CKD Disease Active 2014-[address] [facility] (chronic (chronic 2-10 [facility] - kidney kidney 00:00: Medical disease) disease) 00 [place] stage 2, stage 2, GFR 60-89 GFR 60-89 ml/min ml/min DOMINIQUE (acute DOMINIQUE (acute Disease Active 2014-[address] kidney kidney 1-13 [facility] - injury) injury) 00:00: Medical 00 [place] Bladder Bladder Disease Active [facility] cancer cancer - [facility] - 00:[facility]: Medical 00 [place] Allergies, Adverse Reactions, Alerts Allergy Allergy Status Severity Reaction(s) Onset Inactive Treating Comm ents Source Name Type Date Date Clinician Darci Propensi Active [place] Inhibito ty to 07-28 Methodi rs adverse 00:00: st reaction 00 s to drug Darci Drug Active Other (See [facility] Inhibito Intolera Comments) 07-27 barbie per [facility] - nce 00:00: BC file Medical 00 [place] Social History Social Habit Start Date Stop Date Quantity Comments Source Sex Assigned At [facility] Alcohol intake 2018-04-13 2018-04-13 [facility] non-drinker of Medical Ce nter alcohol (finding) Medications Ordered Filled Start Stop Current Ordering Indication Dosage Frequency Signature Comments Components Source Medication Medication Date Date Medication? Clinician (SIG) Name Name mirtazapine Yes 15mg QD Take [address] [facility] (REMERON) 9-25 by mouth [facility] - 15 MG 11:49: nightly. Medical tablet 05 [place] SODIUM Yes [id number] Take by [facility] BICARBONATE 9-25 [id number] mouth 3 [facility] - ORAL 11:49: 3D [...] mouth [facility] - tablet 11:49: daily. Medical [address] [place] [address] tamsulosin Yes .4mg QD Take 0.[address] (FLOMAX) 9-25 mg by [facility] - 0.4 mg Cp24 11:49: mouth Medic al 24 hr 05 daily. [place] capsule citalopram Yes 20mg QD Take [address] (CELEXA) 20 9-25 by mouth [facility] - MG tablet 11:49: daily. Medica l 05 [place] gabapentin 2018-0 Yes 300mg QD Take [address] (NEURONTIN) 9-25 mg by [facility] - 300 MG 11:49: mouth Medical capsule 05 daily. [place] cilostazol 2018-0 Yes 50mg Q.5D Take [address] (PLETAL) 50 9-25 by mouth 2 [facility] - MG tablet 11:49: (two) Medical 05 times Center daily. clopidogrel 2018-0 Yes 75mg QD Take [address] [facility] (PLAVIX) 75 9-24 by mouth [facility] - mg tablet 15:49: daily. Medica l 51 [place] amLODIPine 0 Yes 2.5mg QD Take 2.[address] (NORVASC) 9-24 mg by [facility] - 2.5 MG 14:34: mouth Medical tablet 41 daily. [place] citalopram 2017-0 Yes 20mg QD Take [address] (CELEXA) 20 9-24 by mouth [facility] - MG tablet 14:34: daily. Medica l 41 [place] aspirin 81 2017-0 Yes 81mg QD Take [address] MG EC 9-24 by mouth [facility] - tablet 14:34: daily. Medical 41 [place] cilostazol 2017-0 Yes 50mg Q.5D Take [address] (PLETAL) 50 9-24 by mouth 2 [facility] - MG tablet 14:34: (two) Medical 41 times Center daily. sodium 2018-0 Yes 1{tbl} [id number] Take [address] bicarbonate 9-24 [id number] tablet by [facility] - 650 MG 14:34: [...] tamsulosin 2017-0 Yes .4mg Take 0.4 Piero lucion (FLOMAX) 1-09 mg by Methodi 0.4 mg [...] (#1)] Future Scheduled 2020-02-18 INFLUENZA VACCINE Libbyto myra [facility] 00:00:00 [code = INFLUENZA VACCINE] Future Scheduled 2016-12-[address] [facility] - Test 00:00:00 WELLNESS (YEAR 2 or Medical Center FIRST YEAR if no IPPE) [code = MEDICARE ANNUAL WELLNESS (YEAR 2 or FIRST YEAR if no IPPE)] Future Scheduled 2003 65+ PNEUMOCOCCAL [place] [facility] Test 00:00:00 VACCINE (1 of 1 - PPSV23) [code = 65+ PNEUMOCOCCAL VACCINE (1 of 1 - PPSV23)] Future Scheduled 1988 SHINGLES VACCINES (#1) H ania [facility] Test 00:00:00 [code = SHINGLES VACCINES (#1)] Future Scheduled 1954 COVID-19 VACCINE (#1) Ho bulmaro [facility] Test 00:00:00 [code = COVID-19 VACCINE (#1)] Encounters Start End Encounter Admission Attending Care Care Encounter Source Date/Time Date/Time Type Type Clinicians Facility Department ID 2020-06-19 2020-06-19 Laboratory Lab, Adc [facility] [id number] 16:32:43 16:52:43 Only [facility] [id number] [place] [id number] [facility] [id number] nal 0[address] One Results Test Description Test Time Test Comments Results Result Sourc e Comments RAD, SPINE, 2018-04-12 Reason for FINAL REPORT PATIENT LUMBAR, COMPLETE 10:47:00 exam:->LEG ID: [id number] (MIN 4 VIEWS) PAINReason for CLINICAL HISTORY: exam:->BACK LEG PAINBACK PAINHIP PAINReason for PAIN TECHNIQUE: Five exam:->HIP PAIN views of the lumbar spine. 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 There is no evidence for lumbar fracture or dislocation. There are multiple abdominal pelvic surgical clips. Signed: Tish Tena Verified Date/Time: 04/12/2018 10:47:57 Reading Location: [facility] Radiology Reading Room , HIP, 2 VIEWS, 2018-04-12 Reason for FINAL REPORT PATIENT RIGHT 10:42:00 exam:->LEG ID: [id number] PAINReason for CLINICAL HISTORY: exam:->BACK LEG PAINBACK PAINHIP PAINReason for PAIN TECHNIQUE: 2 exam:->HIP PAIN views of the right hip COMPARISON: None IMPRESSION: There are degenerative changes of the right hip without evidence of fracture or dislocation. Signed: Tish Tena Verified Date/Time: 04/12/2018 10:42:38 Reading Location: [facility] Radiology Reading Room ALYSIS W/ MICROSCOPIC [...] (BEAKER) (test code = 466) Moderate Negat cyndi A UROBILINOGEN UA (BEAKER) (test code = 463) 0.2 mg/dL 0.2-1.0 RBC UA (BEAKER) (test code = 519) 4 /HPF WBC UA (BEAKER) (test code = 520) 34 /HPF BACTERIA (BEAKER) (test code = 517) Moderate MUCUS (BEAKER) (test code = 1574) Rare SOURCE(BEAKER) (test code = 9995) Urine, Clean Catch BASIC METABOLIC [id number] 10:05:00 Test Item Value Reference Range Interpretation [...] TO CALCULA TE ESTIMATED GFR. HEPATIC FUNCTION [id number] 09:44:00 Test Item Value Reference Range Interpretation [...] 347) hemolyzed CBC W/PLT COUNT & AUTO [id number] 09:27:00 Test Item Value Reference Range Interpretation [...] 0-1 PERCENT (BEAKER) (test code = 2801) [id number] 06:07:00 Test Item Value Reference Range Interpretation Comments PHOSPHORUS (BEAKER) (test code = 2.9 mg/dL 2.3-4.7 604) [id number] 06:07:00 Test Item Value Reference Range Interpretation Comments MAGNESIUM (BEAKER) (test code = 2.0 mg/dL 1.6-2.6 627) BASIC METABOLIC [id number] 06:07:00 Test Item Value Reference Range Interpretation [...] 0-0 (BEAKER) (test code = 413) POCT-GLUCOSE [id number] 08:10:00 Test Item Value Reference Range Interpretation Comments POC-GLUCOSE METER 109 mg/dL 70-[address] [facility] 6720 (BEAKER) (test code = [place] 1538) [id number] 05:39:00 Test Item Value Reference Range Interpretation Comments PHOSPHORUS (BEAKER) (test code = 3.2 mg/dL 2.3-4.7 604) [id number] 05:39:00 Test Item Value Reference Range Interpretation Comments MAGNESIUM (BEAKER) (test code = 2.1 mg/dL 1.6-2.6 627) BASIC METABOLIC [id number] 05:39:00 Test Item Value Reference Range Interpretation [...] 0-0 (BEAKER) (test code = 413) POCT-GLUCOSE [id number] 21:31:00 Test Item Value Reference Range Interpretation Comments POC-GLUCOSE METER 136 mg/dL 70-[address] [facility] 6720 (BEAKER) (test code = [place] 1538) [id number] 03:49:00 Test Item Value Reference Range Interpretation Comments PHOSPHORUS (BEAKER) (test code = 4.2 mg/dL 2.3-4.7 604) [id number] 03:49:00 Test Item Value Reference Range Interpretation Comments MAGNESIUM (BEAKER) (test code = 2.0 mg/dL 1.6-2.6 627) BASIC METABOLIC [id number] 03:49:00 Test Item Value Reference Range Interpretation [...] WBC 0-0 (BEAKER) (test code = 413) [id number] 15:06:00 Test Item Value Reference Range Interpretation Comments PARTIAL THROMBOPLASTIN TIME 31.2 seconds 22.5-36.0 (BEAKER) (test code = 760) BASIC METABOLIC [id number] 15:05:00 Test Item Value Reference Range Interpretation [...] WBC 0-0 (BEAKER) (test code = 413) [id number] 12:59:00 Test Item Value Reference Range Interpretation Comments ACTIVATED CLOTTING TIME 120 sec TEST ED AT [place] [address] ([facility]) (test code = [place] [address]) [address] [id number] 12:59:00 Test Item Value Reference Range Interpretation Comments ACTIVATED CLOTTING TIME 230 sec TEST ED AT [place] [address] ([facility]) (test code = [place] [address]) [address] [id number] 12:59:00 Test Item Value Reference Range Interpretation Comments ACTIVATED CLOTTING TIME 257 sec TEST ED AT [place] [address] ([facility]) (test code = [place] [address]) [address] [id number] 12:59:00 Test Item Value Reference Range Interpretation Comments ACTIVATED CLOTTING TIME 246 sec TEST ED AT [place] [address] ([facility]) (test code = [place] [address]) [address] [id number] 12:59:00 Test Item Value Reference Range Interpretation Comments ACTIVATED CLOTTING TIME 263 sec TEST ED AT [place] [address] (BEAKER) (test code = [place] [address]) [address] [id number] 12:59:00 Test Item Value Reference Range Interpretation Comments ACTIVATED CLOTTING TIME 263 sec TEST ED AT [place] [address] (BEAKER) (test code = [place] [address]) [address] BLOOD GAS, [id number] 11:14:00 Test Item Value Reference Range Interpretation [...] (test code = 1819) 55.0 % GLUCOSE-STAT [id number] 11:13:00 Test Item Value Reference Range Interpretation Comments GLUCOSE RANDOM (BEAKER) (test code 104 mg/dL 70-110 = 652) SODIUM NA-STAT [id number] 11:13:00 Test Item Value Reference Range Interpretation Comments SODIUM (BEAKER) (test code = 381) 137 meq/L 135-148 POTASSIUM-STAT [id number] 11:13:00 Test Item Value Reference Range Interpretation Comments POTASSIUM (BEAKER) (test code = 4.2 meq/L 3.6-5.5 379) HGB/HCT (H&H) - STAT [id number] 11:13:00 Test Item Value Reference Range Interpretation Comments HEMOGLOBIN (BEAKER) (test code = 14.1 g/dL 13.0-16.8 410) HEMATOCRIT (BEAKER) (test code = 41.0 % 40.0-50.0 411) CALCIUM, [id number] 11:13:00 Test Item Value Reference Range Interpretation Comments CALCIUM IONIZED (BEAKER) (test 1.12 mmol/L 1.12-1.27 code = 698) PH, BLOOD (BEAKER) (test code = 7.40 1810) GLUCOSE-STAT [id number] 10:14:00 Test Item Value Reference Range Interpretation Comments GLUCOSE RANDOM (BEAKER) (test code 105 mg/dL 70-110 = 652) SODIUM NA-STAT [id number] 10:14:00 Test Item Value Reference Range Interpretation Comments SODIUM (BEAKER) (test code = 381) 135 meq/L 135-148 POTASSIUM-STAT [id number] 10:14:00 Test Item Value Reference Range Interpretation Comments POTASSIUM (BEAKER) (test code = 4.4 meq/L 3.6-5.5 379) HGB/HCT (H&H) - STAT [id number] 10:14:00 Test Item Value Reference Range Interpretation Comments HEMOGLOBIN (BEAKER) (test code = 14.5 g/dL 13.0-16.8 410) HEMATOCRIT (BEAKER) (test code = 43.0 % 40.0-50.0 411) CALCIUM, [id number] 10:14:00 Test Item Value Reference Range Interpretation Comments CALCIUM IONIZED (BEAKER) (test 1.18 mmol/L 1.12-1.27 code = 698) PH, BLOOD (BEAKER) (test code = 7.34 1810) BLOOD GAS, [id number] 10:14:00 Test Item Value Reference Range Interpretation [...] code = 1819) 70.0 % SODIUM NA-STAT [id number] 08:32:00 Test Item Value Reference Range Interpretation Comments SODIUM (BEAKER) (test code = 381) 134 meq/L 135-148 L CALCIUM, [id number] 08:31:00 Test Item Value Reference Range Interpretation Comments CALCIUM IONIZED (BEAKER) (test 1.07 mmol/L 1.12-1.27 L code = 698) PH, BLOOD (BEAKER) (test code = 7.33 1810) BLOOD GAS, [id number] 08:31:00 Test Item Value Reference Range Interpretation [...] (test code = 1819) 60.0 % GLUCOSE-STAT [id number] 08:30:00 Test Item Value Reference Range Interpretation Comments GLUCOSE RANDOM (BEAKER) (test code = 97 mg/dL 70-110 652) POTASSIUM-STAT [id number] 08:30:00 Test Item Value Reference Range Interpretation Comments POTASSIUM (BEAKER) (test code = 4.6 meq/L 3.6-5.5 379) HGB/HCT (H&H) - STAT [id number] 08:30:00 Test Item Value Reference Range Interpretation Comments HEMOGLOBIN (BEAKER) (test code = 15.0 g/dL 13.0-16.8 410) HEMATOCRIT (BEAKER) (test code = 44.0 % 40.0-50.0 411) [id number] 07:27:00 Test Item Value Reference Range Interpretation Comments BLOOD UREA NITROGEN (BEAKER) (test 49 mg/dL 7-21 H code = 354) PROTHROMBIN [id number] 06:48:00 Test Item Value Reference Range Interpretation [...] 0-1 PERCENT (BEAKER) (test code = 2801) [id number] 11:22:00 Test Item Value Reference Range Interpretation Comments SODIUM (BEAKER) (test 139 meq/L 136-145 code = 381) POTASSIUM (BEAKER) 4.9 meq/L 3.5-5.1 Specimen slightly (test code = 379) hemolyzed CHLORIDE (BEAKER) 108 meq/L 98-107 H (test code = 382) CO2 (BEAKER) (test 22 meq/L 22-29 code = 355) [id number] 11:22:00 Test Item Value Reference Range Interpretation Comments GLUCOSE RANDOM (BEAKER) (test code 102 mg/dL 70-105 = 652) BUN AND [id number] 11:22:00 Test Item Value Reference Range Interpretation [...] S NOT APPLICABLE FOR DIALYSIS PATIEN TS. [id number] 08:56:00 Test Item Value Reference Range Interpretation Comments HEMOGLOBIN (BEAKER) (test code = 15.9 GM/DL 13.7-17.5 410) BASIC METABOLIC [id number] 01:34:00 Test Item Value Reference Range Interpretation [...] S NOT APPLICABLE FOR DIALYSIS PATITAMIKO AVALOS [id number] 01:32:00 Test Item Value Reference Range Interpretation Comments PARTIAL THROMBOPLASTIN TIME 69.3 seconds 22.5-36.0 H (BEAKER) (test code = 760) CBC W/PLT COUNT & AUTO [id number] 01:23:00 Test Item Value Reference Range Interpretation [...] 0-1 PERCENT (BEAKER) (test code = 2801) [id number] 04:46:00 Test Item Value Reference Range Interpretation [...] for patients with mechanical heart valves.BASIC METABOLIC [id number] 02:31:00 Test Item Value Reference Range Interpretation [...] PATIEN TS. CBC W/PLT COUNT & AUTO [id number] 02:17:00 Test Item Value Reference Range Interpretation [...] = 2801) CBC W/PLT COUNT & AUTO [id number] 07:53:00 Test Item Value Reference Range Interpretation [...] 46 pg/mL 0-100 (test code = 700) [id number] 07:22:00 Test Item Value Reference Range Interpretation Comments PHOSPHORUS (BEAKER) (test code = 2.8 mg/dL 2.3-4.7 604) [id number] 07:22:00 Test Item Value Reference Range Interpretation Comments MAGNESIUM (BEAKER) (test code = 1.9 mg/dL 1.6-2.6 627) BASIC METABOLIC [id number] 07:22:00 Test Item Value Reference Range Interpretation [...] NOT APPLICABLE FOR DIALYSIS PATIEN TS. CALCIUM, [id number] 07:05:00 Test Item Value Reference Range Interpretation Comments CALCIUM IONIZED (BEAKER) (test 0.90 mmol/L 1.12-1.27 L code = 698) PH, BLOOD (BEAKER) (test code = 7.42 1810) CBC W/PLT COUNT & AUTO [id number] 08:13:00 Test Item Value Reference Range Interpretation [...] (BEAKER) (test code = 413) 0.00BASIC METABOLIC [id number] 06:38:00 Test Item Value Reference Range Interpretation [...] (test 65 U/L 29-200 code = 380) [id number] 06:37:00 Test Item Value Reference Range Interpretation Comments PHOSPHORUS (BEAKER) (test code = 3.8 mg/dL 2.3-4.7 604) [id number] 06:37:00 Test Item Value Reference Range Interpretation Comments MAGNESIUM (BEAKER) (test code = 2.1 mg/dL 1.6-2.6 627) B-TYPE NATRIURETIC FACTOR (BNP)[id number] 06:28:00 Test Item Value Reference Range Interpretation Comments B-TYPE NATRIURETIC PEPTIDE (BEAKER) 36 pg/mL 0-100 (test code = 700) [id number] 06:16:00 Test Item Value Reference Range Interpretation Comments PARTIAL THROMBOPLASTIN TIME 152.1 seconds 22.5-36.0 HH (BEAKER) (test code = 760) CALCIUM, [id number] 06:12:00 Test Item Value Reference Range Interpretation Comments CALCIUM IONIZED (BEAKER) (test 1.09 mmol/L 1.12-1.27 L code = 698) PH, BLOOD (BEAKER) (test code = 7.25 1810) [id number] 23:50:00 Test Item Value Reference Range Interpretation Comments PARTIAL THROMBOPLASTIN TIME 87.0 seconds 22.5-36.0 H (BEAKER) (test code = 760) [id number] 15:04:00 Test Item Value Reference Range Interpretation Comments PARTIAL THROMBOPLASTIN TIME 43.2 seconds 22.5-36.0 H (BEAKER) (test code = 760) [id number] 12:41:00 Test Item Value Reference Range Interpretation Comments PARTIAL THROMBOPLASTIN TIME 192.4 seconds 22.5-36.0 HH (BEAKER) (test code = 760) Prior to initiating heparinPLATELET [id number] 12:21:00 Test Item Value Reference Range Interpretation Comments PLATELET COUNT (BEAKER) (test 155 K/CU MM 150-430 code = 756) BASIC METABOLIC [id number] 09:42:00 Test Item Value Reference Range Interpretation [...] S NOT APPLICABLE FOR DIALYSIS PATIEN TS. [id number] 09:30:00 Test Item Value Reference Range Interpretation [...] K/ L 0.00-0.20 (test code = 417) [id number] 18:10:00 Test Item Value Reference Range Interpretation Comments ACTIVATED CLOTTING TIME [address] [facility] 6720 (BEAKER) (test code = [place] [address]) [address] BLOOD [id number] 00:00:00 Test Item Value Reference Range Interpretation Comments CULTURE (BEAKER) (test No growth in 5 days code = 1095) URINE [id number] 11:38:00 Test Item Value Reference Range Interpretation Comments CULTURE (BEAKER) (test code = 1095) No growth [id number] 07:05:00 Test Item Value Reference Range Interpretation Comments PHOSPHORUS (BEAKER) (test code = 3.2 mg/dL 2.3-4.7 604) [id number] 07:05:00 Test Item Value Reference Range Interpretation Comments MAGNESIUM (BEAKER) (test code = 2.3 mg/dL 1.6-2.6 627) COMPREHENSIVE METABOLIC [id number] 07:05:00 Test Item Value Reference Range Interpretation [...] NOT APPLICABLE FOR DIALYSIS PATIEN TS. CALCIUM, [id number] 06:43:00 Test Item Value Reference Range Interpretation Comments CALCIUM IONIZED (BEAKER) (test 1.08 mmol/L 1.12-1.27 L code = 698) PH, BLOOD (BEAKER) (test code = 7.35 1810) CBC W/PLT COUNT & AUTO [id number] 06:36:00 Test Item Value Reference Range Interpretation [...] K/ L 0.00-0.20 (test code = 417) [id number] 05:54:00 Test Item Value Reference Range Interpretation Comments PHOSPHORUS (BEAKER) (test code = 3.8 mg/dL 2.3-4.7 604) [id number] 05:54:00 Test Item Value Reference Range Interpretation Comments MAGNESIUM (BEAKER) (test code = 2.5 mg/dL 1.6-2.6 627) BASIC METABOLIC [id number] 05:54:00 Test Item Value Reference Range Interpretation [...] 89 U/L 29-200 code = 380) CALCIUM, [id number] 05:29:00 Test Item Value Reference Range Interpretation Comments CALCIUM IONIZED (BEAKER) (test 1.02 mmol/L 1.12-1.27 L code = 698) PH, BLOOD (BEAKER) (test code = 7.33 1810) EOSINOPHIL SMEAR, [id number] 16:25:00 Test Item Value Reference Range Interpretation Comments EOSINOPHIL SMEAR, URINE Rare EOS =less than No EOS seen A (BEAKER) (test code = 5% WBCs seen are EOS 1851) BASIC METABOLIC [id number] 16:09:00 Test Item Value Reference Range Interpretation [...] 697) EGFR (BEAKER) (test 43 mL/min/1.73 ESTIMA KRZYSTZOF GFR IS code = 1092) sq m NOT ACCURATE CREATININE CLEARANCE IN PREDICTING GLOMERULAR FILTRATION RATE . ESTIMATED GFR I S NOT APPLICABLE FOR DIALYSIS PATIEN TS. OSMOLALITY, [id number] 13:18:00 Test Item Value Reference Range Interpretation Comments OSMOLALITY URINE (BEAKER) (test 379 mOsm/kg 40-1400 code = 614) HEMOGLOBIN [id number] 09:05:00 Test Item Value Reference Range Interpretation Comments HEMOGLOBIN A1C (BEAKER) (test code = 5.8 % 4.3-6.1 368) CBC W/PLT COUNT & AUTO [id number] 07:12:00 Test Item Value Reference Range Interpretation [...] K/ L 0.00-0.20 (test code = 417) 0.00BASI METABOLIC [id number] 06:43:00 Test Item Value Reference Range Interpretation [...] APPLICABLE FOR DIALYSIS PATIEN TS. URINALYSIS W/ [id number] 03:12:00 Test Item Value Reference Range Interpretation [...] 1574) SOURCE(BEAKER) (test code = Urine, Voided 0371) CHLORIDE, RANDOM [id number] 01:29:00 Test Item Value Reference Range Interpretation Comments CHLORIDE URINE (BEAKER) (test code = 62 meq/L 682) Reference Range: No NormalsCREATININE, RANDOM [id number] 01:29:00 Test Item Value Reference Range Interpretation Comments CREATININE URINE (BEAKER) (test 49.9 mg/dL code = 375) Reference Range: No NormalsPOTASSIUM, RANDOM [id number] 01:29:00 Test Item Value Reference Range Interpretation Comments POTASSIUM URINE (BEAKER) (test 18.3 meq/L code = 195) Reference Range: No NormalsSODIUM, RANDOM [id number] 01:29:00 Test Item Value Reference Range Interpretation Comments SODIUM URINE (BEAKER) (test code = 73 meq/L 243) Reference Range: No NormalsSEDIMENTATION [id number] 21:30:00 Test Item Value Reference Range Interpretation Comments SEDIMENTATION RATE, ERYTHROCYTE 10 mm/HR 0-40 (BEAKER) (test code = 766) C-REACTIVE [id number] 20:44:00 Test Item Value Reference Range Interpretation Comments C-REACTIVE PROTEIN (BEAKER) (test 0.11 mg/dL 0.00-0.50 code = 676) BASIC METABOLIC [id number] 15:53:00 Test Item Value Reference Range Interpretation [...] PATIEN TS. CBC W/PLT COUNT & AUTO [id number] 15:45:00 Test Item Value Reference Range Interpretation [...]
[2020-07-06 21:44] LABS: Arterial Blood Carboxyhemoglob 0.9 % (0-1.5); Blood Gas Oxyhemoglobin 81.6 % (94-97); Blood O2 Saturation 83.3 % (92-98.5)
[2020-07-06 21:51] LABS: Absolute Lymphocytes (CBC) 0.5 K/uL (0.7-4.9); Basophils % 0.4 % (0-1.3); Hematocrit 58.5 % (39.6-49.0); Lymphocytes % 5.5 % (15.3-44.8); MPV 8.9 fL (7.6-11.3); Protime INR 1.07; RBC Red Blood Cell Count 6.43 M/uL (4.33-5.43)
[2020-07-06 22:10] LABS: Bilirubin Direct 1.1 mg/dL (0-0.2); Bilirubin Total 2.1 mg/dL (0.2-1.0); Magnesium 3.8 mg/dL (1.8-2.4); Protein, Total 8.7 g/dL (6.4-8.2); Troponin (Emerg Dept Use Only) 0.2 ng/mL (0.0-0.045)
[2020-07-06] MEDS ORDERED: ALBUTEROL 2.5 MG/3 ML NEB SOL ONE (22:12)
[2020-07-06 22:13] LABS: Potassium 6.7 mmol/L (3.5-5.1)
[2020-07-06 22:20] LABS: White Blood Cell Scan OK (OK)
[2020-07-06 22:21] LABS: Blood Morphology Comment NOT SEEN (NOT SEEN); Platelet Estimate ADEQ
[2020-07-06] MEDS ORDERED: ONDANSETRON 4 MG/2 ML VIAL ONE (22:34)
[2020-07-06] MEDS ORDERED: FAMOTIDINE 20 MG/2 ML VIAL IV ONE (22:34)
[2020-07-06] MEDS ORDERED: dexAMETHasone 10 MG/ML VIAL ONE (22:52)
[2020-07-06] MEDS ORDERED: AZITHROMYCIN 500 MG INJ IVPB ONE (22:53)
[2020-07-06] MEDS ORDERED: SOD POLYSTYREN SUL 15 GM/60 ML UCUP ONE (22:54)
[2020-07-06] MEDS ORDERED: NA CHLORIDE 0.9% 250 ML ONE (22:54)
[2020-07-06] MEDS ORDERED: D50W 50 ML IV ONE (22:54)
[2020-07-06] MEDS ORDERED: INSULIN -REGULAR HUMAN 50 UNIT/0.5 ML ML ONE (22:54)
[2020-07-06] MEDS ORDERED: SODIUM BICARB 50 MEQ/50ML VIAL ONE (22:55)
[2020-07-06] MEDS ORDERED: CALCIUM GLUCONATE 1 GM IVPB 1 GM/50 ML BAG IV ONE (22:55)
[2020-07-06] MEDS ORDERED: CEFTRIAXONE/SWI 1gm 1 GM/10 ML SYR ONE (23:44)
[2020-07-06] MEDS ORDERED: NA CHLORIDE 0.9% 1,000 ML ONE (23:44)
--- NOTE | 2020-07-06 23:50 | EDPHYS ---
Physician Documentation [facility] – [place], [place] Name: Lisandro Livingston Age: 80 yrs Sex: Male : 1940 Arrival Date: 07/06/2020 Time: 21:03 Bed 13 Private MD: None, None ED Physician Epifanio aPcheco HPI: 07/06 21:59 This 80 yrs old Male presents to ER via EMS with complaints of Shortness Of mh7 Breath, General Weakness. 21:59 The patient presents with abdominal pain in the left lower quadrant. Onset: The mh7 symptoms/episode began/occurred 2 day(s) ago. The symptoms do not radiate. Associated signs and symptoms: Pertinent positives: nausea and vomiting, anorexia, shortness of breath, generalized weakness, Pertinent negatives: blood in stools, chest pain, constipation, diarrhea, dysuria, fever, headache, hematuria, palpitations, testicular pain, vomiting blood. The symptoms are described as intermittent, vague, waxing/waning. Modifying factors: The symptoms are alleviated by nothing, the symptoms are aggravated by nothing. Severity of pain: At its worst the pain was moderate yesterday, in the emergency department the pain is unchanged. Historical: - Allergies: 21:03 NKDA; jb4 - Home Meds: 21:03 amlodipine 2.5 mg tab 1 tab once daily [Active]; atorvastatin 40 mg Oral tab 1 tab once jb4 daily [Active]; citalopram 10 mg tab 1 tab once daily [Active]; Pt is not compliant with medications [Active]; tamsulosin 0.4 mg Oral cp24 1 cap once daily [Active]; Sodium Bicarbonate 10GR tab RIS Oral 3 tabs three times a day [Active]; - PMHx: 21:03 Bladder cancer; Cancer; Hypertension; jb4 - Immunization history:: Adult Immunizations unknown. - Social history:: Smoking status: unknown. ROS: 22:02 Constitutional: Negative for fever, chills, and weight loss, Eyes: Negative for injury, mh7 pain, redness, and discharge, ENT: Negative for injury, pain, and discharge, Neck: Negative for injury, pain, and swelling, Cardiovascular: Negative for chest pain, palpitations, and edema, Back: Negative for injury and pain, : Negative for injury, bleeding, discharge, and swelling, MS/Extremity: Negative for injury and deformity, Skin: Negative for injury, rash, and discoloration, Psych: Negative for depression, anxiety, suicide ideation, homicidal ideation, and hallucinations, Allergy/Immunology: Negative for hives, rash, and allergies, Endocrine: Negative for neck swelling, polydipsia, polyuria, polyphagia, and marked weight changes, Hematologic/Lymphatic: Negative for swollen nodes, abnormal bleeding, and unusual bruising. Exam: 22:02 Head/Face: Normocephalic, atraumatic. Eyes: Pupils equal round and reactive to light, mh7 extra-ocular motions intact. Lids and lashes normal. Conjunctiva and sclera are non-icteric and not injected. Cornea within normal limits. Periorbital areas with no swelling, redness, or edema. Neck: Trachea midline, no thyromegaly or masses palpated, and no cervical lymphadenopathy. Supple, full range of motion without nuchal rigidity, or vertebral point tenderness. No Meningismus. Chest/axilla: Normal chest wall appearance and motion. Nontender with no deformity. No lesions are appreciated. Cardiovascular: Regular rate and rhythm with a normal S1 and S2. No gallops, murmurs, or rubs. Normal PMI, no JVD. No pulse deficits. 22:02 Back: No spinal tenderness. No costovertebral tenderness. Full range of motion. Skin: Warm, dry with normal turgor. Normal color with no rashes, no lesions, and no evidence of cellulitis. MS/ Extremity: Pulses equal, no cyanosis. Neurovascular intact. Full, normal range of motion. Neuro: Awake and alert, GCS 15, oriented to person, place, time, and situation. Cranial nerves II-XII grossly intact. Motor strength 5/5 in all extremities. Sensory grossly intact. Cerebellar exam normal. Normal gait. Psych: Awake, alert, with orientation to person, place and time. Behavior, mood, and affect are within normal limits. 22:02 Constitutional: The patient appears in no acute distress, alert, awake, uncomfortable. 22:02 Respiratory: the patient does not display signs of respiratory distress, Respirations: normal, Breath sounds: rhonchi, that are mild, are scattered, Respiratory rate: 24 22:02 Abdomen/GI: Inspection: abdomen appears normal, Bowel sounds: normal, in all quadrants, Palpation: moderate abdominal tenderness, in the left lower quadrant, Rectal exam: the exam is deferred, because of patient request, Indicators: McBurney's point is not tender, Gilliam's sign is negative, Rovsing's sign is negative, Obturator sign is negative, Psoas sign is negative, Liver: no appreciated palpable abnormalities, Hernia: not appreciated. Vital Signs: 21:03 BP 121 / 61; Pulse 73; Resp 24; Temp 97.6(O); Pulse Ox 89% on R/A; Weight 72.57 kg (R); jb4 Height 5 ft. 4 in. (162.56 cm) (R); Pain 6/10; 22:00 BP 150 / 67; Pulse 80; Resp 21; Pulse Ox 84% on 6 lpm NC; jb4 23:30 BP 116 / 65; Pulse 87; Resp 19; Pulse Ox 93% ; [facility] 07/07 00:30 BP 98 / 55; Pulse 80; Resp 20; Pulse Ox 93% on NC; jb4 01:00 BP 115 / 54; Pulse 79; Resp 21; Pulse Ox 93% ; [facility] 07/06 21:03 Body Mass Index 27.46 (72.57 kg, 162.56 cm) [facility] 07/06 23:30 On high flow NC at 55% O2 [facility] 07/07 00:30 on high flow NC at 55% jb4 01:00 on high flow NC at 55% jb4 MDM: 07/06 23:45 Differential diagnosis: bowel obstruction, Cholelithiasis, diverticulitis, non-specific mh7 abd pain, Pyelonephritis, Ureterolithiasis, urinary tract infection. Differential diagnosis: Pneumonia, sepsis, dehydration. Data reviewed: vital signs, nurses notes. Data interpreted: Pulse oximetry: on room air is 89 %. Interpretation: hypoxia. Plan: O2 by NC applied. Counseling: I had a detailed discussion with the patient and/or guardian regarding: the historical points, exam findings, and any diagnostic results supporting the discharge/admit diagnosis, the presence of at least one elevated blood pressure reading (>120/80) during this emergency department visit, lab results, radiology results, the need for further work-up and treatment in the hospital. Response to treatment: the patient's symptoms have mildly improved after treatment. 23:49 Patient medically screened. [facility] 07/06 21:11 Order name: Basic Metabolic Panel; Complete Time: 22:16 [facility] 07/06 21:11 Order name: CBC with Diff; Complete Time: 22:30 [facility] 07/06 21:11 Order name: LFT's; Complete Time: 22:16 [facility] 07/06 21:11 Order name: Magnesium; Complete Time: 22:16 [facility] 07/06 21:11 Order name: NT PRO-BNP; Complete Time: 22:16 [facility] 07/06 21:11 Order name: PT-INR; Complete Time: 21:58 [facility] 07/06 21:11 Order name: Troponin (emerg Dept Use Only); Complete Time: 22:16 [facility] 07/06 21:11 Order name: Blood Culture Adult (2) [facility] 07/06 21:11 Order name: Influenza Screen (a \T\ B); Complete Time: 22:16 [facility] 07/06 21:16 Order name: Lactate; Complete Time: 22:16 [facility] 07/06 21:16 Order name: Lipase; Complete Time: 22:16 [facility] 07/06 21:16 Order name: Procalcitonin; Complete Time: 22:30 [facility] 07/06 21:16 Order name: Arterial Blood Gas; Complete Time: 21:58 [facility] 07/06 21:11 Order name: XRAY Chest (1 view) [facility] 07/06 21:57 Order name: CBC Smear Scan; Complete Time: 22:30 [facility] 07/06 22:22 Order name: CT Abd/Pelvis - Without Contrast [facility] 07/07 00:12 Order name: SARS-COV-2 RT PCR [facility] 07/07 01:24 Order name: Lactate Sepsis 2 HR Follow-up [facility] 07/06 21:11 Order name: EKG; Complete Time: 21:12 [facility] 07/06 21:11 Order name: Cardiac monitoring; Complete Time: 21:44 [facility] 07/06 21:11 Order name: EKG - Nurse/Tech; Complete Time: 21:44 [facility] 07/06 21:11 Order name: IV Saline Lock; Complete Time: 21:44 [facility] 07/06 21:11 Order name: Labs collected and sent; Complete Time: 21:44 [facility] 07/06 21:11 Order name: O2 Per Protocol; Complete Time: 21:44 [facility] 07/06 21:11 Order name: O2 Sat Monitoring; Complete Time: 21:44 mh7 07/06 23:36 Order name: CONS Physician Consult EDMS Administered Medications: 22:00 Drug: Albuterol 2.5 mg {Note: Administered by RT.} Route: Inhalation; 4 22:30 Follow up: Response: No adverse reaction; Marked relief of symptoms 4 22:00 Drug: Albuterol 2.5 mg {Note: Administered by Rt.} Route: Inhalation; 4 22:00 Drug: Albuterol 2.5 mg {Note: Administered by RT.} Route: Inhalation; jb4 22:28 Drug: Pepcid 20 mg Route: IVP; Site: right antecubital; jb4 23:00 Follow up: Response: No adverse reaction :29 Drug: Zofran (Ondansetron) 4 mg Route: IVP; Site: right antecubital; 4 23:00 Follow up: Response: No adverse reaction; Nausea is decreased 4 :29 Not Given (Other Intervention Used): Albuterol HFA Inhaler 2 puffs Inhalation once 4 22:30 Not Given (Physician Discretion): morphine 2 mg IVP once; (PAIN>8) RASS on ADMN: 4 Combtv4, Very Agttd3, Agttd2, Rstlss1, AlertClm0, Drwsy-1, LtSdtn-2, ModSdtn-3, DpSdtn-4, UnArsble-5 x2 22:30 Not Given (Physician Discretion): NS 0.9% 500 ml IV at bolus once 4 23:00 Drug: Sodium Bicarbonate 1 amp Route: IVP; Site: right antecubital; 23:30 Follow up: Response: No adverse reaction 4 23:01 Drug: D50W 50 ml Route: IVP; Site: right antecubital; jb4 23:30 Follow up: Response: No adverse reaction 4 23:02 Drug: Decadron - Dexamethasone 10 mg Route: IVP; Site: right antecubital; jb4 23:30 Follow up: Response: No adverse reaction 4 23:05 Drug: Calcium Gluconate 1 grams Route: IVPB; Infused Over: 60 mins; Site: right jb4 antecubital; 07/07 00:45 Follow up: Response: No adverse reaction; IV Status: Completed infusion; IV Intake: jb4 100ml 07/06 23:05 Drug: Insulin Regular Human 3 units {[facility]} Route: IVP; [facility] Site: right antecubital; 23:30 Follow up: Response: No adverse reaction [facility] 23:20 Drug: AZITHromycin 500 mg Route: IVPB; Infused Over: 1 hrs; Site: left wrist; [facility] 07/07 01:30 Follow up: Response: No adverse reaction; IV Status: Infusion continued upon admission [facility] 07/06 23:24 Not Given (Patient Refused): Kayexalate 15 grams PO once [facility] 23:38 Drug: NS 0.9% 1000 ml Route: IV; Rate: 1000 ml; Site: left wrist; 07/07 01:30 Follow up: Response: No adverse reaction; IV Status: Infusion continued upon admission [facility] 07/06 23:39 Drug: Rocephin - (cefTRIAXone) 1 grams {Note: Adminsitered IVP per pharmacy protocol.} Route: IVPB; Infused Over: 30 mins; Site: left wrist; 23:43 Follow up: Response: No adverse reaction; IV Status: Completed infusion; IV Intake: [id number] Disposition: 07/06/20 23:49 Hospitalization ordered by Basil Riojas for Inpatient Admission. Preliminary diagnosis are Pneumonia, Acute Kidney Injury, Dehydration, Hyperkalemia. - Bed requested for Intensive Care Unit. - Status is Inpatient Admission. sg - Condition is Serious. - Problem is new. - Symptoms have improved. Signatures: Dispatcher [employer] EDGA Carmelita Cheney RN RN Apolinar Contreras RN RN sg Bryson, James, RN RN [address] Epifanio Pacheco MD MD [address] Corrections: (The following items were deleted from the chart) 22:51 21:12 CORONAVIRUS+MR.LAB.BRZ ordered. [facility] EDGA 23:50 23:49 Hospitalization Ordered by Basil Riojas for Inpatient Admission. Preliminary diagnosis is Pneumonia; Acute Kidney Injury; Dehydration; Hyperkalemia. Bed requested for Intensive Care Unit. Status is Inpatient Admission. Condition is Serious. Problem is new. Symptoms have improved. [facility] 07/07 01:33 07/06 23:50 07/06/2020 23:49 Hospitalization Ordered by Basil Riojas for Inpatient Admission. Preliminary diagnosis is Pneumonia; Acute Kidney Injury; Dehydration; Hyperkalemia. Bed requested for Intensive Care Unit. Status is Inpatient Admission. Condition is Serious. Problem is new. Symptoms have improved. mw
--- NOTE | 2020-07-06 23:50 | ER ---
Nurse's Notes [facility] Name: Lisandro Livingston Age: 80 yrs Sex: Male : 1940 Arrival Date: 07/06/2020 Time: 21:03 Bed 13 Private MD: None, None Diagnosis: Pneumonia;Acute Kidney Injury;Dehydration;Hyperkalemia Presentation: 07/06 21:03 Chief complaint: EMS states: PT is Covid-19 positive, pt's family reports that he has jb4 not been eating or drinking for the past 2 days. 21:03 Coronavirus screen: Client presents with at least one sign or symptom that may indicate jb4 coronavirus-19. Standard/surgical mask placed on the client. Provider contacted for isolation considerations. Client reports previous positive COVID test result. Ebola Screen: No symptoms or risks identified at this time. Initial Sepsis Screen: Does the patient meet any 2 criteria? RR > 20 per min. Yes Does the patient have a suspected source of infection? No. Patient's initial sepsis screen is negative. Risk Assessment: Do you want to hurt yourself or someone else? Patient reports no desire to harm self or others. Onset of symptoms was June 29, 2020. Transition of care: patient was not received from another setting of care. 21:03 Method Of Arrival: EMS: [facility] jb4 21:03 Acuity: JUDIT 2 jb4 Historical: - Allergies: 21:03 NKDA; jb4 - Home Meds: 21:03 amlodipine 2.5 mg tab 1 tab once daily [Active]; atorvastatin 40 mg Oral tab 1 tab once jb4 daily [Active]; citalopram 10 mg tab 1 tab once daily [Active]; Pt is not compliant with medications [Active]; tamsulosin 0.4 mg Oral cp24 1 cap once daily [Active]; Sodium Bicarbonate 10GR tab RIS Oral 3 tabs three times a day [Active]; - PMHx: 21:03 Bladder cancer; Cancer; Hypertension; jb4 - Immunization history:: Adult Immunizations unknown. - Social history:: Smoking status: unknown. Screenin:03 Abuse screen: Denies threats or abuse. Nutritional screening: No deficits noted. jb4 Tuberculosis screening: No symptoms or risk factors identified. Fall Risk None identified. Assessment: 21:03 General: Appears in no apparent distress. uncomfortable, ill, unkempt, Behavior is jb4 cooperative. Pain: Complains of pain in left lower quadrant Pain does not radiate. Pain currently is 6 out of 10 on a pain scale. Neuro: Level of Consciousness is awake, alert, obeys commands, Oriented to person, place, time, situation. Cardiovascular: Patient's skin is warm and dry. Rhythm is sinus rhythm. Respiratory: Airway is patent Respiratory effort is even, labored, Respiratory pattern is symmetrical, tachypnea Breath sounds are clear bilaterally. GI: Abdomen is flat, Bowel sounds present X 4 quads. Abd is soft X 4 quads Abd is non tender in right upper quadrant and right lower quadrant Abdomen is tender to palpation in left upper quadrant and left lower quadrant Reports lower abdominal pain, upper abdominal pain, nausea. : No signs and/or symptoms were reported regarding the genitourinary system. EENT: No signs and/or symptoms were reported regarding the EENT system. Derm: Skin is intact, Skin is pink, warm \T\ dry. Musculoskeletal: Circulation, motion, and sensation intact. Range of motion: intact in all extremities. 22:00 Reassessment: Patient appears in no apparent distress at this time. Patient and/or jb4 family updated on plan of care and expected duration. Pain level reassessed. PT's respirations remain at 24 breaths per minute. satting 88-90% on 6L NC. No s/s of distress noted, respirations even, tachypneic, labored, and symmetrical. 23:30 Reassessment: Patient appears in no apparent distress at this time. Patient and/or jb4 family updated on plan of care and expected duration. Pain level reassessed. Patient is alert, oriented x 3, equal unlabored respirations, skin warm/dry/pink. Pt appears much more relaxed, is satting 94-96 % Patient states symptoms have improved. Vital Signs: 21:03 BP 121 / 61; Pulse 73; Resp 24; Temp 97.6(O); Pulse Ox 89% on R/A; Weight 72.57 kg (R); jb4 Height 5 ft. 4 in. (162.56 cm) (R); Pain 6/10; 22:00 BP 150 / 67; Pulse 80; Resp 21; Pulse Ox 84% on 6 lpm NC; jb4 23:30 BP 116 / 65; Pulse 87; Resp 19; Pulse Ox 93% ; jb4 07/07 00:30 BP 98 / 55; Pulse 80; Resp 20; Pulse Ox 93% on NC; jb4 01:00 BP 115 / 54; Pulse 79; Resp 21; Pulse Ox 93% ; jb4 07/06 21:03 Body Mass Index 27.46 (72.57 kg, 162.56 cm) jb 07/06 23:30 On high flow NC at 55% O2 jb4 07/07 00:30 on high flow NC at 55% jb4 01:00 on high flow NC at 55% jb4 ED Course: 07/06 21:03 Patient arrived in ED. 21:03 Arm band placed on left wrist. 4 21:03 Patient has correct armband on for positive identification. Bed in low position. Call [facility] light in reach. Side rails up X 1. playground monitor on. Pulse ox on. NIBP on. 21:10 Epifanio Pacheco MD is Attending Physician. health system 21:30 Inserted saline lock: 18 gauge in right antecubital area, using aseptic technique. [facility] Blood collected. 21:30 Initial lab(s) drawn, by ms, sent to lab. First set of blood cultures drawn by me. jb4 21:37 XRAY Chest (1 view) In Process Unspecified. EDMS 21:44 Javier Jasmine, RN is Primary Nurse. jb4 21:46 Triage completed. jb4 22:15 Notified ED physician of a critical lab result(s). Potassium 6.7, Magnesium 3.8. jb4 23:36 Hamzah Leblanc DO is Private Physician. sg 23:36 None, None is Private Physician. sg 23:48 Basil Riojas is Hospitalizing Provider. health system 07/07 00:04 No provider procedures requiring assistance completed. Patient admitted, IV remains in jb4 place. Administered Medications: 07/06 22:00 Drug: Albuterol 2.5 mg {Note: Administered by RT.} Route: Inhalation; [facility] 22:30 Follow up: Response: No adverse reaction; Marked relief of symptoms jb4 22:00 Drug: Albuterol 2.5 mg {Note: Administered by Rt.} Route: Inhalation; [facility] 22:00 Drug: Albuterol 2.5 mg {Note: Administered by RT.} Route: Inhalation; 4 22:28 Drug: Pepcid 20 mg Route: IVP; Site: right antecubital; [facility] 23:00 Follow up: Response: No adverse reaction 4 22:29 Drug: Zofran (Ondansetron) 4 mg Route: IVP; Site: right antecubital; 4 23:00 Follow up: Response: No adverse reaction; Nausea is decreased jb4 22:29 Not Given (Other Intervention Used): Albuterol HFA Inhaler 2 puffs Inhalation once jb4 22:30 Not Given (Physician Discretion): morphine 2 mg IVP once; (PAIN>8) RASS on ADMN: jb4 Combtv4, Very Agttd3, Agttd2, Rstlss1, AlertClm0, Drwsy-1, LtSdtn-2, ModSdtn-3, DpSdtn-4, UnArsble-5 x2 22:30 Not Given (Physician Discretion): NS 0.9% 500 ml IV at bolus once 23:00 Drug: Sodium Bicarbonate 1 amp Route: IVP; Site: right antecubital; 23:30 Follow up: Response: No adverse reaction [facility] 23:01 Drug: D50W 50 ml Route: IVP; Site: right antecubital; [facility] 23:30 Follow up: Response: No adverse reaction 23:02 Drug: Decadron - Dexamethasone 10 mg Route: IVP; Site: right antecubital; [facility] 23:30 Follow up: Response: No adverse reaction [facility] 23:05 Drug: Calcium Gluconate 1 grams Route: IVPB; Infused Over: 60 mins; Site: right jb4 antecubital; 07/07 00:45 Follow up: Response: No adverse reaction; IV Status: Completed infusion; IV Intake: jb4 100ml 07/06 23:05 Drug: Insulin Regular Human 3 units {Co-Signature: (Joi Garrett} Route: IVP; [facility] Site: right antecubital; 23:30 Follow up: Response: No adverse reaction [facility] 23:20 Drug: AZITHromycin 500 mg Route: IVPB; Infused Over: 1 hrs; Site: left wrist; [facility] 07/07 01:30 Follow up: Response: No adverse reaction; IV Status: Infusion continued upon admission [facility] 07/06 23:24 Not Given (Patient Refused): Kayexalate 15 grams PO once [facility] 23:38 Drug: NS 0.9% 1000 ml Route: IV; Rate: 1000 ml; Site: left wrist; 07/07 01:30 Follow up: Response: No adverse reaction; IV Status: Infusion continued upon admission [facility] 07/06 23:39 Drug: Rocephin - (cefTRIAXone) 1 grams {Note: Adminsitered IVP per pharmacy protocol.} Route: IVPB; Infused Over: 30 mins; Site: left wrist; 23:43 Follow up: Response: No adverse reaction; IV Status: Completed infusion; IV Intake: 12nhqi2 Intake: 23:43 IV: 10ml; Total: 10ml. [facility] 07/07 00:45 IV: 100ml; Total: 110ml. [facility] Outcome: 07/06 23:49 Decision to Hospitalize by Provider. health system 07/07 01:30 Admitted to ICU accompanied by nurse, via stretcher, room 8, with oxygen, with chart, [facility] Report called to FAVIOLA Morales Condition: stable Discharge instructions given to patient, Instructed on the need for admit, Demonstrated understanding of instructions. 01:33 Patient left the ED. sg Signatures: Dispatcher [employer] EDMS Apolinar Contreras RN RN sg Bryson, James, RN RN [facility] Epifanio Pacheco MD MD [address] Corrections: (The following items were deleted from the chart) 07/06 23:25 22:00 Albuterol 2.5 mg Inhalation [place] [id number] 23:25 22:00 Albuterol 2.5 mg Inhalation [place] [id number] 23:40 21:03 Respiratory: Airway is patent Respiratory effort is even, unlabored, Respiratory wh pattern is regular, symmetrical, Breath sounds are clear bilaterally. [facility] 23:42 23:30 Reassessment: Patient appears in no apparent distress at this time. Patient wh and/or family updated on plan of care and expected duration. Pain level reassessed. Patient is alert, oriented x 3, equal unlabored respirations, skin warm/dry/pink. Patient states symptoms have improved. 23:42 22:00 Reassessment: Patient appears in no apparent distress at this time. Patient wh and/or family updated on plan of care and expected duration. Pain level reassessed. PT's respirations remain at 24 breaths per minute. satting 88-90% on 6L NC 07/07 00:07/06 21:03 Cardiovascular: Patient's skin is warm and dry. jb4 jb4 07/07 00:07/06 23:30 Reassessment: Patient appears in no apparent distress at this time. Patient jb4 and/or family updated on plan of care and expected duration. Pain level reassessed. Patient is alert, oriented x 3, equal unlabored respirations, skin warm/dry/pink. Pt appears much more relaxed, is satting 94-96 % Patient states symptoms have improved. 07/07 00:07/06 22:00 Reassessment: Patient appears in no apparent distress at this time. Patient jb4 and/or family updated on plan of care and expected duration. Pain level reassessed. PT's respirations remain at 24 breaths per minute. satting 88-90% on 6L NC. No s/s of distress noted, respirations even, tachypneic, labored, and symmetrical.
[2020-07-07] MEDS ORDERED: Remdesivir 200 MG in NA CHLORIDE 0.9% 250 ML IV ONE ×2 (01:02→08:00)
[2020-07-07] MEDS ORDERED: ACETAMINOPHEN 325 MG TABLET PO PRN (01:02)
[2020-07-07] MEDS ORDERED: NA CHLORIDE 0.9% 1,000 ML IV SCH (01:02)
--- NOTE | 2020-07-07 01:30 | P.HP ---
Certification for Inpatient Patient admitted to: Inpatient With expected LOS: >2 Midnights Patient will require the following post-hospital care: None Practitioner: I am a practitioner with admitting privileges, knowledge of patient current condition, hospital course, and medical plan of care. Services: Services provided to patient in accordance with Admission requirements found in Title 42 Section 412.3 of the Code of Federal Regulations <Peter Monique - Last Filed: 07/07/20 01:24> Patient History Date of Service: 07/07/20 Reason for admission: COVID Pneumonia, Hypoxia, Acute Kidney Failure History of Present Illness: This is an 80-year-old male with a history of hypertension, high cholesterol that presented to the emergency room for general weakness and shortness of breath that started about 2 days ago. Patient was diagnose with coated on June 25 and was admitted and discharged on June 27. Patient came back with worsening of symptoms today. Stated that he has had increased shortness of breath with cough and dyspnea on exertion. Patient was worked up in the emergency room and found to have hemoglobin of 20, hematocrit of 58, white cell of 8.6, platelets of 267. Patient had a sodium of 126, potassium is 6.7, chloride of 98, bicarb 16, BUN of 136, creatinine of 2.54, glucose of 108. Patient had troponin of 0.20, lactated 2.1, pro calcitonin of 0.37, magnesium of 3.8. Patient's initial presentation and vital signs revealed him to be dyspneic with a respiratory rate of 24 and a room air pulse ox of 89%. Medicine was consulted at that time for admission Home medications list reviewed: Yes - Past Medical/Surgical History Diabetic: No -: Chronic renal disease -: Bladder Cancer, [facility] Oncology-Dr. Antolin Valera -: Varicose veins -: HTN -: Depression with anxiety -: Nicotine dependence -: Possible kidney cancer necrotic mass in the right kidney -: Ryan Cataracts sx -: Bladder reconstruction -: Bladder surgery Psychosocial/ Personal History: . 5 children - Family History Mother -: Lung disease, Diabetes Father -: Hypertension, Lung disease, Diabetes - Social History Smoking Status: Never smoker Smoking therapy provided: No Alcohol use: No CD- Drugs: No Caffeine use: Yes Place of Residence: Home <Peter Monique - Last Filed: 07/07/20 01:24> Date of Service: 07/07/20 <evie hess - Last Filed: 07/07/20 09:44> Allergies No Known Allergies Allergy (Unverified 05/27/19 08:15) Home Medications: Acetaminophen [Tylenol Extra Strength] 500 mg PO Q4H PRN 05/26/19 Amlodipine Besylate [Norvasc] 2.5 mg PO DAILY 05/26/19 Atorvastatin Calcium 40 mg PO BEDTIME 05/26/19 Gabapentin 300 mg PO Q8H PRN 05/26/19 Loratadine 10 mg PO DAILY PRN 05/26/19 Apixaban [Eliquis] 5 mg PO BID #60 tablet 05/27/19 predniSONE [Deltasone] 20 mg PO SEECOM 14 Days #21 tab 06/27/20 Review of Systems General: Weakness, Malaise Eyes: Unremarkable ENT: Unremarkable Respiratory: Cough, Shortness of Breath, SOB with Excertion Cardiovascular: Unremarkable Gastrointestinal: Unremarkable Genitourinary: Unremarkable Musculoskeletal: Unremarkable Integumentary: Unremarkable Neurological: Unremarkable Lymphatics: Unremarkable <Dougrosa mPeter - Last Filed: 07/07/20 01:24> Physical Examination - Vital Signs Temperature: 97.7 F Blood Pressure: 121/61 Pulse: 73 Respirations: 24 Pulse Ox (%): 89 (Room-air) - Physical Exam General: Alert, Oriented x3, Cooperative, Mild distress HEENT: PERRLA, Mucous membr. moist/pink, EOMI Neck: Supple, 2+ carotid pulse no bruit, JVD not distended, No Thyromegaly Respiratory: Expiratory wheezes Cardiovascular: No edema, Normal pulses, Regular rate/rhythm, Normal S1 S2, No gallops, No rubs, No murmurs Capillary refill: <2 Seconds Gastrointestinal: Normal bowel sounds, Soft and benign, Tenderness (Mid abdominal tenderness noted on examination without guarding or rebounding) Musculoskeletal: No clubbing, No swelling, No contractures, No erythema, No tenderness, No warmth Integumentary: No rashes, No breakdown, No significant lesion, No tenderness/swelling, No erythema, No warmth, No cyanosis Neurological: Normal speech, Normal strength at 5/5 x4 extr, Normal tone, Sensation intact, Cranial nerves 3-12 intact, Normal affect Lymphatics: No axilla or inguinal lymphadenopathy - Studies Laboratory Data (last 24 hrs) 07/06/20 21:30: Lipase 123 07/06/20 21:30: PT 12.6 H, INR 1.07 07/06/20 21:30: WBC 8.6 D, Hgb 20.0 H D, Hct 58.5 H D, Plt Count 267 D 07/06/20 21:30: Sodium 126 L, Potassium 6.7 H*, BUN 136 H D, Creatinine 2.54 H, Glucose 108 H, Magnesium 3.8 H* D, Total Bilirubin 2.1 H, AST 19, ALT 20, Alkaline Phosphatase 114 Microbiology Data (last 24 hrs): 07/06/20 21:30 Nasopharnyx Influenza Type A Antigen Screen - Final 07/06/20 21:30 Nasopharnyx Influenza Type B Antigen Screen - Final <Peter Monique - Last Filed: 07/07/20 01:24> - Studies Laboratory Data (last 24 hrs) 07/06/20 21:30: Lipase 123 07/06/20 21:30: PT 12.6 H, INR 1.07 07/06/20 21:30: WBC 8.6 D, Hgb 20.0 H D, Hct 58.5 H D, Plt Count 267 D 07/06/20 21:30: Sodium 126 L, Potassium 6.7 H*, BUN 136 H D, Creatinine 2.54 H, Glucose 108 H, Magnesium 3.8 H* D, Total Bilirubin 2.1 H, AST 19, ALT 20, Alkaline Phosphatase 114 Microbiology Data (last 24 hrs): 07/06/20 21:30 Nasopharnyx Influenza Type A Antigen Screen - Final 07/06/20 21:30 Nasopharnyx Influenza Type B Antigen Screen - Final <evie hess - Last Filed: 07/07/20 09:44> Assessment and Plan - Problems (Diagnosis) (1) Hypoxia Current Visit: Yes Status: Acute (2) Sepsis Current Visit: Yes Status: Acute Qualifiers: Sepsis type: sepsis due to unspecified organism Sepsis acute organ dysfunction status: without acute organ dysfunction Qualified Code(s): A41.9 - Sepsis, unspecified organism (3) Dehydration with hyponatremia Current Visit: Yes Status: Acute (4) Elevated troponin Current Visit: Yes Status: Acute (5) Hyperlipidemia Current Visit: Yes Status: Chronic Qualifiers: Hyperlipidemia type: unspecified Qualified Code(s): E78.5 - Hyperlipidemia, unspecified (6) Pneumonia due to 2019 novel coronavirus Current Visit: Yes Status: Acute (7) HTN (hypertension) Onset Date: 12/13/15 Current Visit: No Status: Chronic Qualifiers: Hypertension type: essential hypertension Qualified Code(s): I10 - Essential (primary) hypertension (8) DOMINIQUE (acute kidney injury) Onset Date: 03/28/16 Current Visit: Yes Status: Acute (9) Hypermagnesemia Current Visit: Yes Status: Acute (10) Hyperkalemia Onset Date: 11/29/15 Current Visit: Yes Status: Acute - Plan 1. Patient admitted to the care of it ICU for covid pneumonia and hypoxia with acute renal failure secondary to dehydration. 2. Patient will be monitored in the ICU continuously with pulse oximetry for his hypoxia. Patient was put on high-flow O2 which has significantly improved him. 3. Patient will be started on treatment for worsening covid pneumonia which includes steroids, high flow O2 , remdesivir 4. Pulmonology consulted for further recommendations and treatment for COVID 5. Nephrology consulted for acute renal dysfunction with hyperkalemia 6. Patient was given to medications in the emergency room for hyperkalemia and started on fluids for acute renal dysfunction. Will recheck potassium this morning and will have regular labs including repeat CBC and chemistry along with lactate to ensure the patient is normalizing. We will trend procalcitonin as well 7. Because patient had elevated pro calcitonin and lactate along with hypoxia and increased respiratory rate. Patient did meet septic criteria. Most likely covid but due to the procalcitonin elevation there is some concern for bacterial component. Patient has been drawn for blood cultures and was put on Zithromax and Rocephin and will continue on this as bacterial pneumonia is likely suspect if there is a bacterial component present. 8. As far as the hypermagnesemia. We will continue to hydrate patient which should bring the magnesium down and normalize hemoglobin and hematocrit along with the hyponatremia noted and renal dysfunction and low bicarb. Will repeat labs in the morning including a magnesium Discharge Plan: Home Plan to discharge in: Greater than 2 days - Advance Directives Does patient have a Living Will: No Does patient have a Durable POA for Healthcare: No - Code Status/Comfort Care Code Status Assessed: Yes Critical Care: Yes (30) Time Spent Managing Pts Care (In Minutes): 90 <Peter Monique - Last Filed: 07/07/20 01:24> Physician Review: Patient Assessed, Agree with Above Assessment and Plan Physician Review Additional Text: COVID 19 pneumonia Acute respiratory failure with hypoxia. Polycythemia secondary to hemoconcentration. Acute renal failure Sepsis. Plan: IV hydration IV steroid Titrate oxygen. He may not benefit from Remdesivir. Monitor CBC and and blood chemistry. <evie hess - Last Filed: 07/07/20 09:44>
[2020-07-07 05:43] LABS: Absolute Lymphocytes (CBC) 0.2 K/uL (0.7-4.9); Basophils % 0.5 % (0-1.3); Hematocrit 48.7 % (39.6-49.0); Lymphocytes % 3.1 % (15.3-44.8); MPV 8.9 fL (7.6-11.3); RBC Red Blood Cell Count 5.32 M/uL (4.33-5.43)
[2020-07-07 06:06] LABS: C-Reactive Protein 60.8 mg/L (<3.00); Ferritin 941.9 ng/mL (26-388); Magnesium 3.2 mg/dL (1.8-2.4); Potassium 5.5 mmol/L (3.5-5.1)
[2020-07-07 06:27] LABS: Urine Appearance CLEAR; Urine Bilirubin NEGATIVE (NEG); Urine Blood NEGATIVE (NEG); Urine Color YELLOW; Urine Glucose NEGATIVE (NEG); Urine Protein NEGATIVE (NEG); Urine pH 6.5 (5.0-7.0)
[2020-07-07 07:38] LABS: Urine Bacteria NONE SEEN /HPF (NONE SEEN); Urine RBC <5 /HPF (NONE SEEN)
[2020-07-07] MEDS ORDERED: Remdesivir 100 MG in NA CHLORIDE 0.9% 250 ML IV SCH (09:00)
[2020-07-07] MEDS ORDERED: CEFTRIAXONE/SWI 1gm 1 GM/10 ML SYR IV SCH (09:00)
[2020-07-07] MEDS ORDERED: CEFTRIAXONE 1 GM/NS 50 ML 1 GM/50 ML BAG IV SCH (09:00)
[2020-07-07] MEDS ORDERED: METHYLPREDNISOLONE 40 MG INJ IV SCH (09:00)
[2020-07-07] MEDS ORDERED: AZITHROMYCIN IV 500 MG in NA CHLORIDE 0.9% 250 ML IVPB SCH (09:00)
[2020-07-07] MEDS ORDERED: FAMOTIDINE 20 MG/2 ML VIAL IV SCH ×2 (09:00)
[2020-07-07] MEDS: APIXABAN 2.5 MG TABLET PO SCH ×2 (09:41→20:30)
[2020-07-07] MEDS: D5W 1,000 ML IV SCH ×2 (09:45→17:28)
--- NOTE | 2020-07-07 09:48 | P.PN ---
Subjective Date of Service: 07/07/20 Chief Complaint: COVID Pneumonia, Hypoxia, Acute Kidney Failure Patient is not currently requiring high-flow oxygen. He is desaturating with activity even on high-flow oxygen. No fever Physical Examination - Vital Signs Temperature: 97.3 F Blood Pressure: 129/66 Pulse: 64 Respirations: 21 Pulse Ox (%): 100 - Physical Exam General: Alert, In no apparent distress Neck: JVD not distended Respiratory: Crackles/rales (Bibasilar rales) Cardiovascular: No edema, Regular rate/rhythm, Normal S1 S2 Gastrointestinal: Soft and benign, No tenderness Musculoskeletal: No swelling Integumentary: No rashes Neurological: Normal strength at 5/5 x4 extr - Studies Laboratory Data (last 24 hrs) 07/06/20 21:30: Lipase 123 07/06/20 21:30: PT 12.6 H, INR 1.07 07/06/20 21:30: WBC 8.6 D, Hgb 20.0 H D, Hct 58.5 H D, Plt Count 267 D 07/06/20 21:30: Sodium 126 L, Potassium 6.7 H*, BUN 136 H D, Creatinine 2.54 H, Glucose 108 H, Magnesium 3.8 H* D, Total Bilirubin 2.1 H, AST 19, ALT 20, Alkaline Phosphatase 114 Microbiology Data (last 24 hrs): 07/06/20 21:30 Nasopharnyx Influenza Type A Antigen Screen - Final 07/06/20 21:30 Nasopharnyx Influenza Type B Antigen Screen - Final Assessment And Plan - Plan Continue IV fluid. Serum creatinine is improving. Hemoglobin level is decreasing. Titrate oxygen IV steroid Watch for steroid induced hyperglycemia Pulmonary to see patient. Diet as tolerated. IV antibiotics for possible secondary bacterial infection. Monitor CBC and electrolytes. Monitor inflammatory markers.
[2020-07-07] MEDS ORDERED: THIAMINE 200 MG/2 ML INJ IVP ONE (10:00)
--- NOTE | 2020-07-07 11:57 | P.CNS ---
Date of Consult: 07/07/20 Reason for Consult: Siegel virus pneumonia Chief Complaint: COVID Pneumonia, Hypoxia, Acute Kidney Failure History of Present Illness: Patient is 80 years of age multiple medical problems presented to the emergency room with shortness of breath and weakness he was diagnosed with siegel virus on July 05 came back again with worsening symptoms worsening shortness of breath worsening renal function wing week Allergies No Known Allergies Allergy (Unverified 05/27/19 08:15) Home Medications: Acetaminophen [Tylenol Extra Strength] 500 mg PO Q4H PRN 05/26/19 Amlodipine Besylate [Norvasc] 2.5 mg PO DAILY 05/26/19 Atorvastatin Calcium 40 mg PO BEDTIME 05/26/19 Gabapentin 300 mg PO Q8H PRN 05/26/19 Loratadine 10 mg PO DAILY PRN 05/26/19 Apixaban [Eliquis] 5 mg PO BID #60 tablet 05/27/19 predniSONE [Deltasone] 20 mg PO SEECOM 14 Days #21 tab 06/27/20 - Past Medical/Surgical History Diabetic: No -: Chronic renal disease -: Bladder Cancer, [facility] Oncology-Dr. Antolin Valera -: Varicose veins -: HTN -: Depression with anxiety -: Nicotine dependence -: Possible kidney cancer necrotic mass in the right kidney -: Siegel virus pneumonia -: Ryan Cataracts sx -: Bladder reconstruction -: Bladder surgery Psychosocial/ Personal History: . 5 children - Family History Mother Medical History: Lung disease, Diabetes Father Medical History: Hypertension, Lung disease, Diabetes - Social History Smoking Status: Unknown if ever smoked Alcohol use: No CD- Drugs: No Caffeine use: No Place of Residence: Home Review of Systems General: Weakness Respiratory: Shortness of Breath Physical Examination Temp Pulse Resp BP Pulse Ox 97.3 F 71 27 H 112/64 100 07/07/20 09:48 07/07/20 11:00 07/07/20 11:00 07/07/20 11:00 07/07/20 11:00 General: Alert, Moderate distress Respiratory: Clear to auscultation bilaterally, Diminished Cardiovascular: No edema, Normal pulses, Normal S1 S2 Laboratory Data (last 24 hrs) 07/06/20 21:30: Lipase 123 07/06/20 21:30: PT 12.6 H, INR 1.07 07/06/20 21:30: WBC 8.6 D, Hgb 20.0 H D, Hct 58.5 H D, Plt Count 267 D 07/06/20 21:30: Sodium 126 L, Potassium 6.7 H*, BUN 136 H D, Creatinine 2.54 H, Glucose 108 H, Magnesium 3.8 H* D, Total Bilirubin 2.1 H, AST 19, ALT 20, Alkaline Phosphatase 114 - Problems (1) Pneumonia due to 2019 novel coronavirus Current Visit: Yes Status: Acute Plan: Patient is 80 years of age admitted with respiratory failure from siegel virus the just recently here discharge his renal function is worse continue with high- dose steroids is only requiring 50% oxygen will try him on nasal cannula his renal function is somewhat better with IV fluids be all prerenal
[2020-07-07] MEDS: METHYLPREDNISOLONE 40 MG INJ IV SCH (16:18)
[2020-07-07 18:00] LABS: Potassium 5.6 mmol/L (3.5-5.1)
[2020-07-07] MEDS ORDERED: NACHLORIDE 0.45% 1,000 ML with NA BICARB 8.4% 50 MEQ IV SCH ×2 (20:00)
[2020-07-07] MEDS ORDERED: SODIUM BICARB 50 MEQ/50ML VIAL ONE (20:32)
[2020-07-08] MEDS: METHYLPREDNISOLONE 40 MG INJ IV SCH (00:43)
[2020-07-08] MEDS: NACHLORIDE 0.45% 1,000 ML IV SCH ×2 (04:42→15:26)
[2020-07-08 05:43] LABS: Absolute Lymphocytes (CBC) 0.3 K/uL (0.7-4.9); Basophils % 0.4 % (0-1.3); Hematocrit 48.5 % (39.6-49.0); Lymphocytes % 3.1 % (15.3-44.8); MPV 8.9 fL (7.6-11.3); RBC Red Blood Cell Count 5.32 M/uL (4.33-5.43)
[2020-07-08 06:02] LABS: C-Reactive Protein 34.8 mg/L (<3.00); Ferritin 949.5 ng/mL (26-388); Potassium 5.2 mmol/L (3.5-5.1)
[2020-07-08] MEDS: APIXABAN 2.5 MG TABLET PO SCH ×2 (08:29→20:45)
[2020-07-08] MEDS: THIAMINE 200 MG/2 ML INJ IVP SCH (08:29)
[2020-07-08] MEDS ORDERED: METHYLPREDNISOLONE 125 MG INJ IV SCH (09:00)
--- NOTE | 2020-07-08 10:23 | P.PN ---
Subjective Date of Service: 07/08/20 Chief Complaint: COVID Pneumonia, Hypoxia, Acute Kidney Failure Patient was tolerating oxygen by nasal cannula until he moved out of bed. He is now 100% FiO2 and high-flow oxygen. No fever. Renal function has trended down. Patient is eating well and appears to be comfortable. Physical Examination - Vital Signs Temperature: 97.8 F Blood Pressure: 137/59 Pulse: 51 Respirations: 19 Pulse Ox (%): 98 - Physical Exam General: Alert, In no apparent distress Neck: Supple Respiratory: Crackles/rales (Mild bibasilar crackles) Cardiovascular: No edema, Regular rate/rhythm, Normal S1 S2 Gastrointestinal: Soft and benign, Non-distended, No tenderness Musculoskeletal: No swelling Integumentary: No rashes Neurological: Other (Nonfocal) Assessment And Plan - Plan Continue IV fluid. Serum creatinine is improving. Hemoglobin improved to normal Titrate oxygen IV steroid Blood glucose within normal range. Pulmonary input appreciated. Diet as tolerated. Discontinue antibiotics. Monitor CBC and electrolytes. Monitor inflammatory markers. Physician Review: Patient Assessed, Agree with Above Assessment and Plan
--- NOTE | 2020-07-08 14:35 | CON ---
Date of Consultation: 07/07/2020 Chief Complaint: Acute kidney injury, severe, associated with high BUN and creatinine ratio; uremia; electrolytes abnormalities including hyponatremia of moderate degree. The patient was found to have COVID pneumonia. He admitted to ICU for hypoxemia. He is on high-flow oxygen therapy and was found to have acute kidney injury with bladder outlet obstruction. Bladder scan showed significant urinary retention and urine output was 800 after Humphreys catheter was placed. History Of Present Illness: The patient is an 80-year-old man with history of hypertension, hypercholesterolemia, presented to emergency room for generalized weakness, shortness of breath and that symptoms started about 2 days prior to admission. The patient was diagnosed with COVID on 06/25 and was admitted and discharged on 06/27. The patient came back to the hospital because of worsening of the symptoms. He progressively developed severe shortness of breath, cough, and dyspnea on exertion. He was screened for acute coronary syndrome. He was found to have severe hyponatremia. Sodium was 126. Hyperkalemia was present with potassium 6.7, chloride was 98, and he was found to have metabolic acidosis and bicarbonate 16. He was found to have severe uremia. BUN was 136, creatinine 2.54, glucose 104. Lactic acid was elevated and procalcitonin level was 0.37. Magnesium was 3.8. The patient was admitted to ICU. He was found to have hypoxemic respiratory failure with respiratory rate of 24 and O2 pulse oximetry was 89. Past Medical History: Chronic kidney disease stage 3, bladder cancer, varicose vein, hypertension, hypertensive heart and kidney disease, possible kidney cancer, necrotic mass in the right kidney, nicotine dependence, depression with anxiety, bladder reconstruction, bladder surgery, bilateral cataract surgery. Family History: Father had hypertension, lung disease, diabetes. Social History: Denies tobacco, alcohol, illicit drug. Review of Systems: General: Weakness and malaise. Eyes: Denies vision changes. Respiratory: Cough, shortness of breath, chest discomfort. Cardiovascular: No syncope. : Denies dysuria, although he had incomplete voiding and difficulty with urination. Neurological: Denies tremor or syncope. All other systems reviewed and all are negative. Physical Examination: Vital Signs: Blood pressure 120/60, heart rate is 73, temperature 97.7, respiratory rate 24, pulse oximetry 89 on room air. Eyes: Anicteric sclerae. EOMI. Respiratory: Wheezes. no rhonchi Cardiovascular: S1, S2. No pericardial friction rub. GI: No rebound. No guarding. Extremities: No cyanosis. No erythema. Neurological: Moving extremities. Cranial nerves intact. SKIN: no oozing , no cyanosis Neurologic : no tremor , moving extremities Laboratory Data: WBC 8.6, hemoglobin 20, hematocrit 38.5, platelet count 267. Sodium 126, potassium 6.7, BUN 136, creatinine 2.5, glucose 108, magnesium 3.8, bilirubin 2.1. Impression And Plan: 1. COVID pneumonia associated with severe hypoxemia. The patient is on high- flow oxygen therapy. Procalcitonin is elevated. Recommend to treat the patient with broad-spectrum antibiotics for possible bacterial pneumonia complicated by COVID pneumonia. 2. Hypertension. Monitor blood pressure. Adjust medication. 3. Acute kidney injury, severe. The patient has bladder outlet obstruction. The patient will have Humphreys catheter. Sodium level has improved from 126 to 135 and IV fluids were adjusted. The patient is started on D5W to accelerate rapid correction of sodium. Hyperkalemia is improving. The patient may need Kayexalate. 4. The patient has severe hyperazotemia and uremia. Plan is to monitor urine output and adjust IV fluids for hydration to treat. 5. Acute kidney injury. The patient likely has acute tubular necrosis due to sepsis and prerenal azotemia with renal hypoperfusion in the setting associated abnormalities like pneumonia and sepsis as well as the patient has obstructive uropathy with bladder outlet obstruction, which will be managed with Humphreys catheter and plan is to monitor renal function and electrolytes. Adjust treatment with hydration as needed. The patient has complicated history of possible kidney mass. He was previously seen by urologist. Plan is to check a CT scan of the abdomen and pelvis when the patient is clinically stable and hypoxemia in good control. EB/MODL Voice ID: [id number] Report ID: [id number] PEDRO
[2020-07-08 16:36] LABS: Potassium 5.1 mmol/L (3.5-5.1)
--- NOTE | 2020-07-08 17:09 | RAD REPORT ---
EXAM DESCRIPTION: RAD - Chest Single View - 07/06/2020 9:37 pm EXAM: Chest Single View CLINICAL HISTORY: 80-year-old male with shortness of breath. TECHNIQUE: Single view, AP portable chest was obtained. COMPARISON: None. FINDINGS: Unremarkable cardiac and mediastinal silhouette. Heart size is normal. Tortuous atheroscle rotic thoracic aorta. Multifocal patchy opacities may be secondary to subsegmental atelectasis, multifocal infectious proce ss including multifocal pneumonia and viral/atypical infection in the correct clinical setting. Low lung volumes. No pneumothorax or pleural effusions. The visualized bones reveals degenerative change. Lucency at the level of the midline upper abdomen may reflect bowel. No subdiaphragmatic air lucency is otherwise identified to suggest free intra-abdominal air. IMPRESSION: 1. Multifocal patchy opacities may be secondary to subsegmental atelectasis, multifocal infectious process including multifocal pneumonia and viral/atypical infection in the correct clinica l setting. 2. Lucency at the level of the midline upper abdomen may reflect bowel. No subdiaphragmatic air lucen cy is otherwise identified to suggest free intra-abdominal air. However, if there is clinical concern for free intra-abdominal air, further evaluation with CT of the abdomen and pelvis is recommended. Electronically signed by: Yanci Fairchild MD 07/06/2020 11:01 PM MULE DEVELOPER Due to temporary technical issues with the PACS/Fluency reporting system, reports are being signed by the in house radiologists without review as a courtesy to insure prompt reporting. The interpreting radiologist is fully responsible for the content of the report.
--- NOTE | 2020-07-08 17:11 | RAD REPORT ---
EXAM DESCRIPTION: CT - Abdomen Pelvis Wo Contrast - 07/07/2020 7:02 am CLINICAL HISTORY: The patient is 80 years old and is Male; ABD PAIN TECHNIQUE: Axial computed tomography images of the abdomen and pelvis without intravenous contrast. Sagittal and coronal reformatted images were created and reviewed. This CT exam was performed usi ng one or more of the following dose reduction techniques: automated exposure control, adjustment o f the mA and/or kV according to patient size, and/or use of iterative reconstruction technique. COMPARISON: CT of the abdomen and pelvis June 25, 2020 FINDINGS: ARTIFACTS: The exam is suboptimal secondary to motion artifact. LUNG BASES: Interval worsening in the patchy groundglass opacities visualized in the lung bases i s noted. ABDOMEN: LIVER: Homogeneous without focal mass. GALLBLADDER AND BILE DUCTS: No calcified stones. No ductal dilation. PANCREAS: The pancreas is atrophic. No ductal dilation. SPLEEN: Unremarkable. ADRENALS: A 1.6 cm left adrenal gland lesion measuring 20 Hounsfield units present. This is new f rom prior exam of January 16, 2019 KIDNEYS AND URETERS: Heterogeneous lower pole right renal lesion is present. Mild prominence of b ilateral renal collecting systems is noted. STOMACH AND BOWEL: The stomach is decompressed. The small bowel is relatively normal in caliber. Stool is present throughout the colon. There is no mucosal thickening or evidence of bowel obstructio n. PELVIS: APPENDIX: No findings to suggest acute appendicitis. BLADDER: The bladder is distended with multiple bladder diverticula present. No stones. REPRODUCTIVE: The prostate is surgically absent. ABDOMEN and PELVIS: INTRAPERITONEAL SPACE: Unremarkable. No free air. No significant fluid collection. BONES/JOINTS: Multilevel degenerative change of the bones is noted. SOFT TISSUES: The soft tissues are normal. VASCULATURE: Atherosclerosis of the vasculature is present. The vessels are normal in caliber. No abdominal aortic aneurysm. LYMPH NODES: Unremarkable. No enlarged lymph nodes. IMPRESSION: 1. Interval worsening in the groundglass opacity throughout the lungs suggesting worse vita infectious process. 2. Redemonstration of the heterogeneous right renal mass suggestive of renal cell carcinoma with as sociated metastatic lesion within the right adrenal gland. 3. Moderate stool burden without obstruction. 4. Chronic findings as detailed above. Electronically signed by: Macrina Brenner MD 07/07/2020 1:07 AM HAND BULLDOZER Due to temporary technical issues with the PACS/Fluency reporting system, reports are being signed by the in house radiologists without review as a courtesy to insure prompt reporting. The interpreting radiologist is fully responsible for the content of the report.
[2020-07-08] MEDS: METHYLPREDNISOLONE 125 MG INJ IV SCH (17:48)
--- NOTE | 2020-07-08 21:33 | PN ---
Date of Progress Note: 07/08/2020 Chief Complaint: Acute on chronic kidney injury. The patient has severe hyperazotemia with high BUN and creatinine ratio. He remains nonoliguric. He was found to have uremia, hyperkalemia, and metab olic acidosis. Hyponatremia was present at the time of admission, sodium was 126, but with IV fluids , sodium improved to 135. Subsequently, fluids were adjusted to prevent rapid correction of hyponatr emia. Sodium level decreased to 130 and remains at 132 range. The patient has COVID pneumonia. He is on high-flow oxygen for hypoxemic respiratory failure. He wa s found to have urinary retention and Humphreys catheter was placed. The patient remains nonoliguric. Von de leon has multiple medical problems including history of his chronic kidney, stage 3 bladder cancer. He was followed by Urologist in [place]. He has hypertensive heart and kidney disease, possible kidney cancer, nephrotic sendy in the right kidney and the patient was seen by urologist as an outpatient. Review of Systems: Denies new complaints. Physical Examination: Lungs: Diminished breath sound at bases. Heart: S1, S2. Abdomen: Benign. Extremities: No edema. Laboratory Data: Hemoglobin 16.5, WBC 9.7, platelet count is 209,000. Sodium 132, potassium 5.2, ch loride 103, CO2 of 22, BUN 107, creatinine 1.78, glucose 124. C-reactive protein 34.8, glucose 150, 124. Impression And Plan: 1.Acute on chronic kidney injury with high BUN and creatinine ratio corresponding with prerenal azot emia, nonoliguric acute tubular necrosis. 2.The patient had COVID pneumonia. Continue treatment for COVID. 3.The patient was found to have hyperkalemia, was treated conservatively and potassium level improve d from 6.7 to 5.2. Metabolic acidosis is compensated. 4.Hyponatremia. Treatment was adjusted for gradual correction of sodium level. 5.The patient has is high BUN and creatinine ratio. He is responding to IV fluids and BUN improved from 136 to 100. The patient was found to have urinary retention. Continue Humphreys catheter. EB/MODL Voice ID: [id number] Report ID: [id number]
[2020-07-09] MEDS: METHYLPREDNISOLONE 125 MG INJ IV SCH ×3 (00:32→17:27)
[2020-07-09] MEDS: NACHLORIDE 0.45% 1,000 ML IV SCH (00:59)
[2020-07-09 06:35] LABS: Absolute Lymphocytes (CBC) 0.2 K/uL (0.7-4.9); Basophils % 0.3 % (0-1.3); Hematocrit 47.7 % (39.6-49.0); Lymphocytes % 3.7 % (15.3-44.8); MPV 8.7 fL (7.6-11.3); RBC Red Blood Cell Count 5.19 M/uL (4.33-5.43)
[2020-07-09] MEDS: APIXABAN 2.5 MG TABLET PO SCH (08:30)
[2020-07-09] MEDS: THIAMINE 200 MG/2 ML INJ IVP SCH (08:31)
[2020-07-09 08:34] LABS: C-Reactive Protein 16.5 mg/L (<3.00); Ferritin 806.5 ng/mL (26-388); Potassium 5.2 mmol/L (3.5-5.1)
[2020-07-09] MEDS: THIAMINE HCL 100 MG TABLET PO SCH (09:00)
[2020-07-09 09:04] LABS: Blood Morphology Comment NOT SEEN (NOT SEEN); Platelet Estimate ADEQ
--- NOTE | 2020-07-09 09:36 | P.PN ---
Subjective Date of Service: 07/09/20 Chief Complaint: COVID Pneumonia, Hypoxia, Acute Kidney Failure Patient has no new complaint. He has been maintained on high-flow oxygen since yesterday. No fever. Renal function has trended down. Patient is eating well and appears to be comfortable. He is hard of hearing. Physical Examination - Vital Signs Temperature: 97 F Blood Pressure: 147/66 Pulse: 53 Respirations: 18 Pulse Ox (%): 90 - Physical Exam General: Alert, In no apparent distress Neck: JVD not distended Respiratory: Normal air movement, Crackles/rales (Bibasilar crackles) Cardiovascular: No edema, Regular rate/rhythm, Normal S1 S2 Gastrointestinal: Soft and benign, Non-distended Musculoskeletal: No swelling Integumentary: No rashes Neurological: Normal strength at 5/5 x4 extr, Cranial nerves 3-12 intact Assessment And Plan - Current Problems (Diagnosis) (1) Acute respiratory failure with hypoxia Current Visit: Yes Status: Acute (2) Pneumonia due to 2019 novel coronavirus Current Visit: Yes Status: Acute (3) DOMINIQUE (acute kidney injury) Onset Date: 03/28/16 Current Visit: Yes Status: Acute (4) Hyponatremia Onset Date: 12/13/15 Current Visit: No Status: Resolved - Plan Serum creatinine has significantly improved. Patient requiring more oxygen. Change IV fluid to normal saline and decrease rate. IV hydration should also help improve hyponatremia and hyperkalemia Weaned off high-flow oxygen as tolerated IV steroid Blood glucose within normal range. Pulmonary is following Diet as tolerated. Monitor CBC and electrolytes. Monitor inflammatory markers.
[2020-07-09] MEDS: NA CHLORIDE 0.9% 1,000 ML IV SCH (10:42)
--- NOTE | 2020-07-09 11:51 | P.PN ---
Subjective Date of Service: 07/09/20 Chief Complaint: Respiratory failure Subjective: Improving (Patient is improving oxygen concentration requirements a been decreasing) Review of Systems General: Weakness Respiratory: Shortness of Breath Physical Examination - Vital Signs Temperature: 97 F Blood Pressure: 147/66 Pulse: 53 Respirations: 18 Pulse Ox (%): 90 Assessment & Plan - Problems (Diagnosis) (1) Pneumonia due to 2019 novel coronavirus Current Visit: Yes Status: Acute Plan: Respiratory failure from cota virus renal function is improving continue with low-dose IV fluids trial of nasal cannula oxygen continue with high-dose steroids Physician Review: Patient Assessed, Agree with Above Assessment and Plan
[2020-07-09] MEDS: VITAMIN D 1000 UNIT TAB PO SCH (13:39)
--- NOTE | 2020-07-09 17:26 | P.PN ---
Date of Service: 07/09/20 I attempted to call the daughter Marissa Bettencourt at [phone] to update her about patient current clinical condition. She could not be reached on the phone and there was no means to leave a message.
[2020-07-09] MEDS: MELATONIN 3 MG TABLET PO SCH (20:09)
[2020-07-09] MEDS: ATORVASTATIN 20 MG TAB PO SCH (20:10)
[2020-07-09] MEDS: APIXABAN 5 MG TABLET PO SCH (20:10)
--- NOTE | 2020-07-09 21:19 | PN ---
Date of Progress Note: 07/09/2020 Chief Complaint: Acute on chronic kidney injury. History Of Present Illness: The patient has severe hyperazotemia with high BUN and creatinine ratio. He remains nonoliguric. He was found to have hyperazotemia, metabolic acidosis, was treated for hy perkalemia, metabolic acidosis, requiring sodium bicarbonate. The patient on admission was found to have sodium of 126. With IV fluids, sodium improved to 135 and subsequently fluids were adjusted to prevent rapid correction of hyponatremia. Sodium level is fluctuating from 130 to 132. The patient has COVID pneumonia. He is on high-flow oxygen for hypoxemic respiratory failure. He was found to h ave urinary retention and Humphreys catheter was placed. The patient has multiple medical problems. He was seen by urologist outpatient for stage 3 bladder cancer. He follows up with urologist in [place] . Review of Systems: No new complaints. Physical Examination: Lungs: Few rhonchi. Heart: S1, S2. Abdomen: Benign. Extremities: No edema. Impression And Plan: 1.Acute on chronic kidney injury with high BUN and creatinine ratio, corresponding with prerenal azo temia, nonoliguric acute tubular necrosis. 2.The patient has COVID pneumonia. Workup per primary team. 3.Hyperkalemia. Potassium level improved. Metabolic acidosis is improving and likely compensated. 4.Hyponatremia. Continue current treatment with IV fluids. Monitor electrolytes. Continue Humphreys catheter for urine output monitoring and to prevent bladder outlet obst ruction. EB/MODL Voice ID: [id number] Report ID: [id number]
[2020-07-10] MEDS: METHYLPREDNISOLONE 125 MG INJ IV SCH ×3 (00:47→18:22)
[2020-07-10] MEDS: NA CHLORIDE 0.9% 1,000 ML IV SCH (05:32)
[2020-07-10] MEDS: VITAMIN D 1000 UNIT TAB PO SCH (08:37)
[2020-07-10] MEDS: THIAMINE HCL 100 MG TABLET PO SCH (08:37)
[2020-07-10] MEDS: APIXABAN 5 MG TABLET PO SCH ×2 (08:38→21:01)
[2020-07-10 08:57] LABS: C-Reactive Protein 9.17 mg/L (<3.00)
[2020-07-10 09:00] LABS: Potassium 5.6 mmol/L (3.5-5.1)
--- NOTE | 2020-07-10 09:25 | P.PN ---
Subjective Date of Service: 07/10/20 Chief Complaint: Respiratory failure Subjective: No new changes (hard of hearing. reports feeling ok - about the same as yesterda. nursing reports he is needing 4-6L NC. Desats quickly to 70-80% with minimal movement. weak) Review of Systems 10-point ROS is otherwise unremarkable Physical Examination - Vital Signs Temperature: 97.8 F Blood Pressure: 138/62 Pulse: 48 Respirations: 19 Pulse Ox (%): 93 - Physical Exam General: Alert, In no apparent distress HEENT: Sclerae nonicteric Respiratory: Other (non-labored on 4 L NC) Cardiovascular: No edema, Regular rate/rhythm Gastrointestinal: Non-distended, No tenderness Neurological: Normal speech, Normal affect Urinary: Chinchilla catheter (blood-tinged) Assessment & Plan Physician Review Additional Text: Acute hypoxemic respiratory failure secondary to COVID-19 pneumonia Acute renal failure Hyponatremia Urinary retention oxygenation improving, still requiring 4+ LNC with quick desaturations and slow improvement continue to wean as tolerated hyponatremia improving with IVF, nephrology following renal function improved with IVF, unclear impact of this R renal mass, will discuss with nephrology continue IV steroids, pulm consulted CRP improved urinary retention on 07/07, requried chinchilla insertion, slightly blood-tinged, nursing reports pt has been pulling at chinchilla occasionally dispo: anticipate dc home in 24-48hrs Time Spent Managing Pts Care (In Minutes): 40
[2020-07-10] MEDS ORDERED: SOD POLYSTYREN SUL 15 GM/60 ML UCUP PO ONE (10:28)
[2020-07-10] MEDS: NACHLORIDE 0.45% 1,000 ML with NA BICARB 8.4% 75 MEQ IV SCH ×2 (11:00)
--- NOTE | 2020-07-10 11:25 | P.PN ---
Subjective Date of Service: 07/10/20 Chief Complaint: Respiratory failure Subjective pt with CKD , admitted SOB , COVID positive have James cr 2.5, hyponatremia and hyperkalemia Today No overnight events stable VS Cr stable K 5.6,hemolyzed?, will give kayexalte and change fluid to bicarb drip Physical exam general: AAOX3, NAD Neck; Supple, No elevated JVD hear: RRR, normal S1,2 no murmur or rub Chest: basal rales Abdomen: Soft , Nt, chinchilla , trace hematuria Extremities trace edema, JAMES on CKD III cr stable now due to dehydration cont IVF renal dose meds hyperkalemia due to JAMES +/- hemolysis will give kayexalate will change fluid to bicarb drip will consider [place] as an OP hypoantremia improving renal mass F/U with urology as an OP COVID 19 penumonia now on NC total time spent 25min Physical Examination - Vital Signs Temperature: 97.8 F Blood Pressure: 124/50 Pulse: 49 Respirations: 17 Pulse Ox (%): 93 Assessment And Plan Physician Review: Patient Assessed, Agree with Above Assessment and Plan
--- NOTE | 2020-07-10 12:14 | P.PN ---
Subjective Date of Service: 07/10/20 Chief Complaint: Respiratory failure Subjective: Improving (Patient's condition is stable he does desat on minimal exertion otherwise saturation satisfactory on 4 L) Review of Systems General: Weakness Respiratory: Shortness of Breath Physical Examination - Vital Signs Temperature: 97.8 F Blood Pressure: 124/50 Pulse: 49 Respirations: 17 Pulse Ox (%): 93 Assessment & Plan - Problems (Diagnosis) (1) Pneumonia due to 2019 novel coronavirus Current Visit: Yes Status: Acute Plan: Respiratory failure improving and gaining good saturations on 4 L nasal cannula oxygen has significant desat on exertion patient is borderline hyperkalemia creatinine is slightly worse CBC normal blood cultures negative currently treated for hyperkalemia reduce dose of Solu-Medrol this ferritin levels were declining repeat ferritin level Physician Review: Patient Assessed, Agree with Above Assessment and Plan
[2020-07-10] MEDS: MELATONIN 3 MG TABLET PO SCH (21:01)
[2020-07-10] MEDS: TAMSULOSIN 0.4 MG SR CAP PO SCH (21:01)
[2020-07-10] MEDS: ATORVASTATIN 20 MG TAB PO SCH (21:01)
[2020-07-11] MEDS: METHYLPREDNISOLONE 125 MG INJ IV SCH ×3 (00:19→17:00)
[2020-07-11 05:48] LABS: C-Reactive Protein 3.91 mg/L (<3.00); Ferritin 496.8 ng/mL (26-388); Magnesium 1.9 mg/dL (1.8-2.4); Potassium 3.8 mmol/L (3.5-5.1)
[2020-07-11] MEDS: NACHLORIDE 0.45% 1,000 ML with NA BICARB 8.4% 75 MEQ IV SCH ×2 (08:12)
[2020-07-11] MEDS: CALCIUM CARBONATE 500 MG TAB PO SCH ×2 (08:18→22:11)
[2020-07-11] MEDS: VITAMIN D 1000 UNIT TAB PO SCH (08:18)
[2020-07-11] MEDS: APIXABAN 5 MG TABLET PO SCH ×2 (08:18→22:10)
[2020-07-11] MEDS: THIAMINE HCL 100 MG TABLET PO SCH (08:18)
--- NOTE | 2020-07-11 11:17 | RAD REPORT ---
EXAM DESCRIPTION: RAD - Chest Single View - 07/11/2020 11:05 am CLINICAL HISTORY: eval covid, COVID-19 pneumonia COMPARISON: July 06 TECHNIQUE: AP portable chest image was obtained 07/11/2020 11:05 am . FINDINGS: Bilateral airspace opacification is present, left greater than right. Pattern is not subst antially different from the comparison study. No evidence for progression. Prominent cardiomediastina l silhouette is stable. No measurable pleural effusion and no pneumothorax. No acute bony abnormality seen. No acute aortic findings suspected. IMPRESSION: COVID-19 pneumonia pattern not substantially different from July 06.
[2020-07-11] MEDS ORDERED: CALCIUM GLUC 10% INJ 4.65 MEQ in NA CHLORIDE 0.9% 100 ML IV ONE (11:29)
--- NOTE | 2020-07-11 11:31 | P.PN ---
Subjective Date of Service: 07/11/20 Chief Complaint: Respiratory failure Subjective pt with CKD , admitted SOB , COVID positive have James cr 2.5, hyponatremia and hyperkalemia Today pt with high oxygen requirement repeated CXR , no significant changes from last image will dc IVF will replace calcium Physical exam general: AAOX3, NAD Neck; Supple, No elevated JVD hear: RRR, normal S1,2 no murmur or rub Chest: basal rales Abdomen: Soft , Nt, chinchilla , trace hematuria Extremities trace edema, JAMES on CKD III cr normalized due to dehydration renal dose meds hyperkalemia due to JAMES +/- hemolysis resolve kayexalate prn hypoantremia resolved renal mass F/U with urology as an OP COVID 19 pneumonia on High flow oxygen total time spent 25min Physical Examination - Vital Signs Temperature: 97 F Blood Pressure: 143/57 Pulse: 53 Respirations: 21 Pulse Ox (%): 93 Assessment And Plan Physician Review: Patient Assessed, Agree with Above Assessment and Plan
--- NOTE | 2020-07-11 14:40 | P.PN ---
Subjective Date of Service: 07/11/20 Chief Complaint: Respiratory failure Subjective: No new changes (feeling about the same, overnight had to be placed on HFNC due to desaturations. chinchilla remains in place. very short of breath just trying to sit him up to bed) Review of Systems 10-point ROS is otherwise unremarkable Physical Examination - Vital Signs Temperature: 97 F Blood Pressure: 143/57 Pulse: 53 Respirations: 21 Pulse Ox (%): 93 - Physical Exam General: Alert, In no apparent distress HEENT: Sclerae nonicteric Respiratory: Other (on HFNC, appears comfortable) Cardiovascular: Regular rate/rhythm Gastrointestinal: Soft and benign, No tenderness Integumentary: No significant lesion Neurological: Normal speech, Normal affect Urinary: Chinchilla catheter Assessment & Plan Physician Review Additional Text: Acute hypoxemic respiratory failure secondary to COVID-19 pneumonia Acute renal failure Hyponatremia Urinary retention still requiring 4+ L NC with quick desaturations and slow improvement - at times needing HFNC for 20-30 minutes to recover continue to wean as tolerated CRP improved, continue IV steroids, pulm following hyponatremia and renal function improved with IVF, nephrology following hypocalcemia today, replaced urinary retention on 07/07, required chinchilla insertion, slightly blood-tinged, nursing reports pt has been pulling at chinchilla occasionally dispo: anticipate dc home in 24-48hrs if continues with these desaturations, may need LTACH/SNF, may benefit from pulm rehab Time Spent Managing Pts Care (In Minutes): 35
[2020-07-11] MEDS: TAMSULOSIN 0.4 MG SR CAP PO SCH (22:10)
[2020-07-11] MEDS: ATORVASTATIN 20 MG TAB PO SCH (22:11)
[2020-07-11] MEDS: MELATONIN 3 MG TABLET PO SCH (22:11)
[2020-07-12] MEDS: METHYLPREDNISOLONE 125 MG INJ IV SCH ×3 (01:36→16:57)
[2020-07-12 05:34] LABS: C-Reactive Protein 3.38 mg/L (<3.00); Ferritin 673.1 ng/mL (26-388); Magnesium 2.3 mg/dL (1.8-2.4); Potassium 4.6 mmol/L (3.5-5.1)
[2020-07-12] MEDS: CALCIUM CARBONATE 500 MG TAB PO SCH ×2 (08:32→22:01)
[2020-07-12] MEDS: APIXABAN 5 MG TABLET PO SCH ×2 (08:33→22:01)
[2020-07-12] MEDS: THIAMINE HCL 100 MG TABLET PO SCH (08:33)
[2020-07-12] MEDS: VITAMIN D 1000 UNIT TAB PO SCH (08:33)
--- NOTE | 2020-07-12 11:53 | P.PN ---
Subjective Date of Service: 07/12/20 (Hospitalist) Chief Complaint: Respiratory failure Subjective: Improving (Patient is doing better as a less than 50% oxygen high- flow wants to go home) Patient is doing better wants to go home still feeling a little weak short of breath still experiencing desat on minimal exertion Review of Systems General: Weakness Respiratory: Shortness of Breath Physical Examination - Vital Signs Temperature: 96.6 F Blood Pressure: 141/62 Pulse: 97 Respirations: 22 Pulse Ox (%): 90 - Physical Exam General: Alert, Mild distress Respiratory: Clear to auscultation bilaterally, Diminished - Studies Microbiology Data (last 24 hrs): 07/06/20 21:45 Blood - Blood Aerobic Blood Culture - Final No growth in 5 days. 07/06/20 21:45 Blood - Blood Anaerobic Blood Culture - Final No growth in 5 days. 07/06/20 21:30 Blood - Blood Aerobic Blood Culture - Final No growth in 5 days. 07/06/20 21:30 Blood - Blood Anaerobic Blood Culture - Final No growth in 5 days. Assessment & Plan - Problems (Diagnosis) (1) Pneumonia due to 2019 novel coronavirus Current Visit: Yes Status: Acute Plan: Respiratory failure from cota virus patient is improving will try nasal cannula oxygen he can tolerate 4 L a maintain cetera 90% will plan for discharge kidney function is improving CRP less than 5 ferritin level is still above 500 Physician Review: Patient Assessed, Agree with Above Assessment and Plan
--- NOTE | 2020-07-12 13:47 | P.PN ---
Subjective Date of Service: 07/12/20 Chief Complaint: Respiratory failure Subjective pt with CKD , admitted SOB , COVID positive have James cr 2.5, hyponatremia and hyperkalemia Today pt with high oxygen requirement with excertion hematuria, will flush chinchilla CRP trending down Physical exam general: AAOX3, NAD Neck; Supple, No elevated JVD hear: RRR, normal S1,2 no murmur or rub Chest: basal rales Abdomen: Soft , Nt, chinchilla with hematuria Extremities trace edema, JAMES on CKD III cr normalized due to dehydration renal dose meds hyperkalemia due to JAMES +/- hemolysis resolve kayexalate prn hypoantremia resolved renal mass F/U with urology as an OP COVID 19 pneumonia on High flow oxygen total time spent 25min Physical Examination - Vital Signs Temperature: 98.2 F Blood Pressure: 133/68 Pulse: 89 Respirations: 23 Pulse Ox (%): 89 - Studies Microbiology Data (last 24 hrs): 07/06/20 21:45 Blood - Blood Aerobic Blood Culture - Final No growth in 5 days. 07/06/20 21:45 Blood - Blood Anaerobic Blood Culture - Final No growth in 5 days. 07/06/20 21:30 Blood - Blood Aerobic Blood Culture - Final No growth in 5 days. 07/06/20 21:30 Blood - Blood Anaerobic Blood Culture - Final No growth in 5 days. Assessment And Plan Physician Review: Patient Assessed, Agree with Above Assessment and Plan
[2020-07-12] MEDS: ATORVASTATIN 20 MG TAB PO SCH (22:01)
[2020-07-12] MEDS: MELATONIN 3 MG TABLET PO SCH (22:02)
[2020-07-12] MEDS: TAMSULOSIN 0.4 MG SR CAP PO SCH (22:02)
[2020-07-13] MEDS: METHYLPREDNISOLONE 125 MG INJ IV SCH ×3 (01:35→17:46)
[2020-07-13] MEDS: THIAMINE HCL 100 MG TABLET PO SCH (08:00)
[2020-07-13] MEDS: VITAMIN D 1000 UNIT TAB PO SCH (08:00)
[2020-07-13] MEDS: CALCIUM CARBONATE 500 MG TAB PO SCH ×2 (08:00→21:46)
[2020-07-13] MEDS: APIXABAN 5 MG TABLET PO SCH ×2 (08:00→21:45)
--- NOTE | 2020-07-13 10:50 | P.PN ---
Subjective Date of Service: 07/14/20 Chief Complaint: Respiratory failure Subjective pt with CKD , admitted SOB , COVID positive have James cr 2.5, hyponatremia and hyperkalemia Today still on on 4liters O2 Plan to transfer to floor discharge plan as per primary team Physical exam general: AAOX3, NAD Neck; Supple, No elevated JVD hear: RRR, normal S1,2 no murmur or rub Chest: basal rales Abdomen: Soft , Nt, chinchilla with hematuria Extremities trace edema, JAMES on CKD III cr normalized due to dehydration renal dose meds hyperkalemia due to JAMES +/- hemolysis resolve kayexalate prn hypoantremia resolved renal mass F/U with urology as an OP COVID 19 pneumonia on High flow oxygen total time spent 25min Physical Examination - Vital Signs Temperature: 97.3 F Blood Pressure: 111/51 Pulse: 77 Respirations: 16 Pulse Ox (%): 87 Assessment And Plan Physician Review: Patient Assessed, Agree with Above Assessment and Plan
--- NOTE | 2020-07-13 12:30 | P.PN ---
Subjective Date of Service: 07/13/20 Chief Complaint: Respiratory failure Patient is doing better feeling better saturation satisfactory Review of Systems General: Weakness Respiratory: Shortness of Breath Physical Examination - Vital Signs Temperature: 97.3 F Blood Pressure: 111/51 Pulse: 77 Respirations: 16 Pulse Ox (%): 87 Assessment & Plan - Problems (Diagnosis) (1) Pneumonia due to 2019 novel coronavirus Current Visit: Yes Status: Acute Plan: Patient admitted with respiratory failure he is doing better saturation is satisfactory a 3 L the plan to ambulate him around his room and move i to the chair if he can recover quickly plan to discharge him kidney function is improving blood pressure stable patient's ferritin level is still above 500 Physician Review: Patient Assessed, Agree with Above Assessment and Plan
[2020-07-13] MEDS: ATORVASTATIN 20 MG TAB PO SCH (21:45)
[2020-07-13] MEDS: MELATONIN 3 MG TABLET PO SCH (21:46)
[2020-07-13] MEDS: TAMSULOSIN 0.4 MG SR CAP PO SCH (21:46)
[2020-07-14] MEDS: METHYLPREDNISOLONE 125 MG INJ IV SCH ×2 (01:59→09:00)
--- NOTE | 2020-07-14 11:15 | P.PN ---
Subjective Date of Service: 07/14/20 Chief Complaint: Respiratory failure Patient is improving on nasal cannula oxygen still little weak Review of Systems General: Weakness Respiratory: Shortness of Breath Physical Examination - Vital Signs Temperature: 97.3 F Blood Pressure: 133/58 Pulse: 113 Respirations: 18 Pulse Ox (%): 88 Assessment & Plan - Problems (Diagnosis) (1) Pneumonia due to 2019 novel coronavirus Current Visit: Yes Status: Acute Plan: Patient admitted with respiratory failure from cota virus is improving will plan to ambulate him possible discharge today Physician Review: Patient Assessed, Agree with Above Assessment and Plan
[2020-07-14] MEDS: APIXABAN 5 MG TABLET PO SCH ×2 (11:40→20:54)
[2020-07-14] MEDS: CALCIUM CARBONATE 500 MG TAB PO SCH ×2 (11:40→20:54)
[2020-07-14] MEDS: VITAMIN D 1000 UNIT TAB PO SCH (11:40)
[2020-07-14] MEDS: METHYLPREDNISOLONE 40 MG INJ IV SCH ×2 (11:40→20:57)
[2020-07-14] MEDS: THIAMINE HCL 100 MG TABLET PO SCH (11:41)
[2020-07-14] MEDS ORDERED: METOPROLOL TARTRATE 5 MG/5 ML INJ IV PRN (12:51)
--- NOTE | 2020-07-14 14:32 | P.PN ---
Subjective Date of Service: 07/14/20 Chief Complaint: Respiratory failure Subjective pt with CKD , admitted SOB , COVID positive have James cr 2.5, hyponatremia and hyperkalemia Today tachycardia chinchilla removed , monitor for TOV tachycardia, cardiology consult requested Physical exam general: AAOX3, NAD Neck; Supple, No elevated JVD hear: tachycardia , normal S1,2 no murmur or rub Chest: basal rales Abdomen: Soft , Nt, chinchilla with hematuria Extremities noedema, JAMES on CKD III cr normalized due to dehydration renal dose meds hyperkalemia due to JAMES +/- hemolysis resolve kayexalate prn hypoantremia resolved renal mass F/U with urology as an OP COVID 19 pneumonia on High flow oxygen total time spent 25min Physical Examination - Vital Signs Temperature: 97.3 F Blood Pressure: 133/58 Pulse: 113 Respirations: 18 Pulse Ox (%): 88 Assessment And Plan Physician Review: Patient Assessed, Agree with Above Assessment and Plan
[2020-07-14] MEDS ORDERED: AMIODARONE HCL 900 MG in Dextrose 5%-Water 482 ML IV SCH (15:00)
[2020-07-14] MEDS ORDERED: AMIODARONE HCL 150 MG in D5W 100 ML IV ONE (15:33)
[2020-07-14] MEDS: METOPROLOL TAR 25 MG TAB PO SCH (16:01)
--- NOTE | 2020-07-14 18:36 | CON ---
Date of Consultation: 07/14/2020 Reason For Consultation: Atrial fibrillation. History Of Present Illness: This is an 80-year-old male, was admitted to the hospital due to COVID-1 9 pneumonia and patient was being prepped today for discharge; however, he went into atrial fibrillat ion with rapid ventricular response, hence I was consulted. Patient has history of CKD, hypertension . He is a smoker. Evaluate him by bedside. He does not have any specific complaints. No chest dano n. No significant shortness of breath and speaking full sentences. Past Medical History: As outlined above. Medications: Refer to reconciliation sheet for detailed list. Allergies: NO KNOWN DRUG ALLERGIES. Family History: No premature coronary artery disease or cancer. Social History: Does not drink, use any drugs. Review of Systems: All systems reviewed and they were negative except for what is mentioned in the HPI. Physical Examination: Vital Signs: His temperature is 97.3, heart rate is between 110 and 130, breathing at 18, blood pres sure is 133/58, saturating 91% with oxygen. General: This is an elderly male, in no apparent distress. Head and neck: Pupils are equal, react to light. Intact eye movements. No JVD. No cervical lympha denopathy. Neck supple. Thyroid is not enlarged. LUNGS: Rhonchi bilaterally. No accessory muscle use. Normal structure. Heart: Irregularly irregular. No extra sounds. Abdomen: Soft, nontender. Bowel sounds positive. No organomegaly. No tenderness to the back. Extremities: No clubbing, cyanosis. Intact pulses. Skin: No rashes noted. Neurologic: Alert, awake, oriented x3. No acute focal deficits appreciated. Lymph Nodes: No cervical lymphadenopathy. Investigations: Creatinine is 1.1 and his troponin peaked at 0.2 with NT-proBNP 1,225. White blood cell count is 6.5, hemoglobin 16.1. Assessment And Recommendation: 1.Atrial fibrillation with rapid ventricular response. Recommend to initiate amiodarone drip, load with 150 mg over 10 minutes, then 1 mg/minute for 6 hours and then 0.5 mg/minute for the reminder of the 24 hours. Also initiate beta paty with metoprolol 25 mg twice a day by mouth and Eliquis 5 mg twice a day for stroke prevention as his [id number] score is elevated. Please obtain echocardiogr am as well. 2.Elevated troponin could be related to the COVID-19 and demand ischemia; however, I will recommend a nuclear stress test, which can be done as an outpatient to further evaluate his coronary arteries. Thank you for the consult. /TRACY Voice ID: [id number] Report ID: [id number]
[2020-07-14] MEDS: MELATONIN 3 MG TABLET PO SCH (20:54)
[2020-07-14] MEDS: TAMSULOSIN 0.4 MG SR CAP PO SCH (20:54)
[2020-07-14] MEDS: ATORVASTATIN 20 MG TAB PO SCH (20:54)
[2020-07-15] MEDS: METOPROLOL TAR 25 MG TAB PO SCH ×2 (05:12→17:38)
[2020-07-15] MEDS: VITAMIN D 1000 UNIT TAB PO SCH (09:51)
[2020-07-15] MEDS: APIXABAN 5 MG TABLET PO SCH ×2 (09:52→20:55)
[2020-07-15] MEDS: CALCIUM CARBONATE 500 MG TAB PO SCH ×2 (09:52→20:56)
[2020-07-15] MEDS: METHYLPREDNISOLONE 40 MG INJ IV SCH ×2 (09:52→20:55)
[2020-07-15] MEDS: THIAMINE HCL 100 MG TABLET PO SCH (09:52)
--- NOTE | 2020-07-15 11:08 | P.PN ---
Subjective Date of Service: 07/15/20 Chief Complaint: Respiratory failure new onset atrial fibrillation Patient developed atrial fibrillation yesterday is non amiodarone drip Review of Systems General: Weakness Respiratory: Shortness of Breath Physical Examination - Vital Signs Temperature: 96.9 F Blood Pressure: 108/57 Pulse: 85 Respirations: 20 Pulse Ox (%): 88 - Physical Exam General: Alert, In no apparent distress, Oriented x3 Respiratory: Clear to auscultation bilaterally, Diminished Assessment & Plan - Problems (Diagnosis) (1) Pneumonia due to 2019 novel coronavirus Current Visit: Yes Status: Acute Plan: Patient's condition has improved oxygenation satisfactory on 3 L nasal cannula oxygen (2) Atrial fibrillation Current Visit: Yes Status: Acute Plan: Patient is now on amiodarone is already anti coagulated will discuss with cardiology Qualifiers: Atrial fibrillation type: paroxysmal Qualified Code(s): I48.0 - Paroxysmal atrial fibrillation Physician Review: Patient Assessed, Agree with Above Assessment and Plan
--- NOTE | 2020-07-15 11:09 | P.PN ---
Subjective Date of Service: 07/15/20 Chief Complaint: Respiratory failure Subjective pt with CKD , admitted SOB , COVID positive have James cr 2.5, hyponatremia and hyperkalemia Today no over night evcents stable VS cont with High O2 requirement Physical exam general: AAOX3, NAD Neck; Supple, No elevated JVD hear: tachycardia , normal S1,2 no murmur or rub Chest: basal rales Abdomen: Soft , Nt, chinchilla with hematuria Extremities noedema, JAMES on CKD III cr normalized due to dehydration renal dose meds hyperkalemia due to JAMES +/- hemolysis resolve kayexalate prn hypoantremia resolved renal mass F/U with urology as an OP COVID 19 pneumonia on High flow oxygen total time spent 25min Physical Examination - Vital Signs Temperature: 96.9 F Blood Pressure: 108/57 Pulse: 85 Respirations: 20 Pulse Ox (%): 88 Assessment And Plan Physician Review: Patient Assessed, Agree with Above Assessment and Plan
[2020-07-15] MEDS: ATORVASTATIN 20 MG TAB PO SCH (20:55)
[2020-07-15] MEDS: TAMSULOSIN 0.4 MG SR CAP PO SCH (20:55)
[2020-07-15] MEDS: MELATONIN 3 MG TABLET PO SCH (20:56)
[2020-07-16] MEDS: METOPROLOL TAR 25 MG TAB PO SCH ×2 (06:37→17:09)
[2020-07-16 08:10] LABS: C-Reactive Protein < 2.90 mg/L (<3.00); Ferritin 671.9 ng/mL (26-388)
[2020-07-16] MEDS: CALCIUM CARBONATE 500 MG TAB PO SCH ×2 (08:49→22:02)
[2020-07-16] MEDS: THIAMINE HCL 100 MG TABLET PO SCH (08:49)
[2020-07-16] MEDS: APIXABAN 5 MG TABLET PO SCH ×2 (08:49→22:01)
[2020-07-16] MEDS: METHYLPREDNISOLONE 40 MG INJ IV SCH ×2 (08:50→22:04)
[2020-07-16] MEDS: AMIODARONE HCL 200 MG TAB PO SCH ×2 (08:50→22:02)
[2020-07-16] MEDS: VITAMIN D 1000 UNIT TAB PO SCH (08:50)
[2020-07-16 09:45] LABS: Potassium 5.1 mmol/L (3.5-5.1)
[2020-07-16] MEDS: ATORVASTATIN 20 MG TAB PO SCH (22:01)
[2020-07-16] MEDS: TAMSULOSIN 0.4 MG SR CAP PO SCH (22:01)
[2020-07-16] MEDS: MELATONIN 3 MG TABLET PO SCH (22:02)
--- NOTE | 2020-07-16 22:41 | PN ---
Date of Progress Note: 07/16/2020 History Of Present Illness: Acute on chronic kidney injury associated with electrolytes abnormalitie s. Patient was found to have hyponatremia and hyperkalemia, acute kidney injury on presentation, was moderately severe and nonoliguric. Creatinine level was up to 2.5. Patient was admitted with short ness of breath and was found to have COVID positive test. Patient was treated with high oxygen flow for respiratory failure due to COVID pneumonia. Review of Systems: No new complaints. Physical Examination: Lungs: Diminished breath sounds at bases. Heart: S1, S2. Abdomen: Soft, benign. Extremities: No edema. Impression And Plan: 1.Acute on chronic kidney injury. Creatinine level is normalized. Patient developed acute kidney i njury due to renal hypoperfusion in setting of ongoing infection and volume depletion. IV fluids wer e used and potassium level was normalizing with Kayexalate. Hyponatremia gradually resolved and over all improved with IV fluids treatment. 2.Renal mass. Patient will follow up with Urology as an outpatient. 3.COVID-19 pneumonia, on high-flow oxygen. Continue treatment. EB/MODL Voice ID: [id number] Report ID: [id number]
[2020-07-17] MEDS: METOPROLOL TAR 25 MG TAB PO SCH ×2 (05:34→17:12)
[2020-07-17] MEDS: THIAMINE HCL 100 MG TABLET PO SCH (08:35)
[2020-07-17] MEDS: METHYLPREDNISOLONE 40 MG INJ IV SCH ×2 (08:35→20:38)
[2020-07-17] MEDS: AMIODARONE HCL 200 MG TAB PO SCH ×2 (08:36→20:36)
[2020-07-17] MEDS: APIXABAN 5 MG TABLET PO SCH ×2 (08:36→20:37)
[2020-07-17] MEDS: CALCIUM CARBONATE 500 MG TAB PO SCH ×2 (08:36→20:37)
[2020-07-17] MEDS: VITAMIN D 1000 UNIT TAB PO SCH (08:36)
[2020-07-17] MEDS ORDERED: SOD POLYSTYREN SUL 15 GM/60 ML UCUP PO ONE ×2 (11:01→20:00)
--- NOTE | 2020-07-17 12:50 | P.PN ---
Subjective Date of Service: 07/17/20 Chief Complaint: Respiratory failure new onset atrial fibrillation Subjective pt with CKD , admitted SOB , COVID positive have James cr 2.5, hyponatremia and hyperkalemia Today today potassium 6.0, Cr 1.4, chinchilla was removed recently bladder scan 250ml, blader not distended on exam will give Kayexalate and start Bicarb drip Physical exam general: AAOX3, NAD Neck; Supple, No elevated JVD hear: tachycardia , normal S1,2 no murmur or rub Chest: basal rales Abdomen: Soft , Nt, chinchilla with hematuria Extremities no edema, JAMES on CKD III cr elevated today bladder scan nosignificant retentiomn will start bicarb drip due to dehydration renal dose meds hyperkalemia due to JAMES +/- hemolysis kayexalate prn bicarb drip hypoantremia resolved renal mass F/U with urology as an OP COVID 19 pneumonia on High flow oxygen total time spent 25min Physical Examination - Vital Signs Temperature: 97.6 F Blood Pressure: 106/57 Pulse: 62 Respirations: 18 Pulse Ox (%): 93 Assessment And Plan Physician Review: Patient Assessed, Agree with Above Assessment and Plan
[2020-07-17] MEDS: D5W 1,000 ML with NA BICARB 8.4% 150 MEQ IV SCH ×2 (13:29)
[2020-07-17] MEDS: TAMSULOSIN 0.4 MG SR CAP PO SCH (20:36)
[2020-07-17] MEDS: ATORVASTATIN 20 MG TAB PO SCH (20:36)
[2020-07-17] MEDS: MELATONIN 3 MG TABLET PO SCH (20:37)
[2020-07-18] MEDS: METOPROLOL TAR 25 MG TAB PO SCH ×2 (06:07→17:41)
--- NOTE | 2020-07-18 08:12 | P.PN ---
Subjective Date of Service: 07/16/20 Patient remains in atrial fibrillation. Respiratory status is fairly stable. Heart rate was greater than 140s. Given medication for rate control as well. Continue on anti coagulation. Monitor renal function closely. Review of Systems 10-point ROS is otherwise unremarkable Physical Examination - Vital Signs Temperature: 96.8 F Blood Pressure: 120/65 Pulse: 75 Respirations: 20 Pulse Ox (%): 90 - Physical Exam General: Alert, In no apparent distress, Oriented x2, Other (Patient with difficulty hearing) Respiratory: Diminished, Crackles/rales, Expiratory wheezes Cardiovascular: Regular rate/rhythm, Normal S1 S2, No murmurs Gastrointestinal: Normal bowel sounds, Soft and benign, Non-distended, No tenderness Musculoskeletal: No clubbing, No swelling, No tenderness Neurological: Sensation intact, Cranial nerves 3-12 intact, Abnormal gait, Abnormal strength - Studies Medications List Reviewed: Yes Assessment & Plan - Problems (Diagnosis) (1) DOMINIQUE (acute kidney injury) Onset Date: 03/28/16 Current Visit: Yes Status: Acute (2) Acute respiratory failure with hypoxia Current Visit: Yes Status: Acute (3) Atrial fibrillation Current Visit: Yes Status: Acute Qualifiers: Atrial fibrillation type: paroxysmal Qualified Code(s): I48.0 - Paroxysmal atrial fibrillation (4) Dehydration with hyponatremia Current Visit: Yes Status: Acute (5) Pneumonia due to 2019 novel coronavirus Current Visit: Yes Status: Acute (6) Congestive heart failure (CHF) Current Visit: No Status: Acute (7) Depression with anxiety Onset Date: 12/13/15 Current Visit: No Status: Acute (8) Poor social situation Onset Date: 03/28/16 Current Visit: No Status: Acute (9) Urinary retention Current Visit: No Status: Acute (10) Depression Current Visit: No Status: Chronic Qualifiers: Depression Type: unspecified Qualified Code(s): F32.9 - Major depressive disorder, single episode, unspecified (11) HTN (hypertension) Onset Date: 12/13/15 Current Visit: No Status: Chronic Qualifiers: Hypertension type: essential hypertension Qualified Code(s): I10 - Ess ential (primary) hypertension (12) History of bladder cancer Current Visit: No Status: Chronic (13) Hyperkalemia Onset Date: 03/28/16 Current Visit: No Status: Resolved - Plan 1. Continue with IV antibiotics 2. Continue medication for rate control including amiodarone and Eliquis for anti coagulation 3. Monitor renal function closely 4. O2 per protocol 5. Pulmonary consultation appreciated 6. Continue with albuterol inhaler therapy; IV dexamethasone; zinc and vitamin-C 7. Monitor volume status 8. Out of bed and ambulate 9. Inflammatory markers are stable 10. GI and DVT prophylaxis Discharge Plan: Home Plan to discharge in: Greater than 2 days - Advance Directives Does patient have a Living Will: No Does patient have a Durable POA for Healthcare: No - Code Status/Comfort Care Code Status Assessed: Yes Code Status: Full Code Physician Review: Patient Assessed, Agree with Above Assessment and Plan Critical Care: No Time Spent Managing PTS Care (In Minutes): 35
--- NOTE | 2020-07-18 08:18 | P.PN ---
Subjective Date of Service: 07/17/20 Patient moved to the general medical floor. Patient feels much better. Potassium was elevated. Started on alkalinized fluid. Continue on amiodarone and anti coagulation Physical Examination - Vital Signs Temperature: 96.8 F Blood Pressure: 120/65 Pulse: 75 Respirations: 20 Pulse Ox (%): 90 - Physical Exam General: Alert, In no apparent distress, Oriented x2 Respiratory: Clear to auscultation bilaterally, Normal air movement Cardiovascular: Regular rate/rhythm, Normal S1 S2, No murmurs Gastrointestinal: Normal bowel sounds, Soft and benign, Non-distended Musculoskeletal: No clubbing, No swelling Neurological: Abnormal gait, Abnormal strength - Studies Medications List Reviewed: Yes Assessment & Plan - Problems (Diagnosis) (1) Hyperkalemia Onset Date: 03/28/16 Current Visit: No Status: Resolved (2) DOMINIQUE (acute kidney injury) Onset Date: 03/28/16 Current Visit: Yes Status: Acute (3) Acute respiratory failure with hypoxia Current Visit: Yes Status: Acute (4) Atrial fibrillation Current Visit: Yes Status: Acute Qualifiers: Atrial fibrillation type: paroxysmal Qualified Code(s): I48.0 - Paroxysmal atrial fibrillation (5) Dehydration with hyponatremia Current Visit: Yes Status: Acute (6) Pneumonia due to 2019 novel coronavirus Current Visit: Yes Status: Acute (7) Congestive heart failure (CHF) Current Visit: No Status: Acute (8) Depression with anxiety Onset Date: 12/13/15 Current Visit: No Status: Acute (9) Poor social situation Onset Date: 03/28/16 Current Visit: No Status: Acute (10) Urinary retention Current Visit: No Status: Acute (11) Depression Current Visit: No Status: Chronic Qualifiers: Depression Type: unspecified Qualified Code(s): F32.9 - Major depressive disorder, single episode, unspecified (12) HTN (hypertension) Onset Date: 12/13/15 Current Visit: No Status: Chronic Qualifiers: Hypertension type: essential hypertension Qualified Code(s): I10 - Essential (primary) hypertension (13) History of bladder cancer Current Visit: No Status: Chronic - Plan 1. Started on bicarb drip; repeat potassium level 2. Continue medication for rate control including amiodarone and Eliquis for anti coagulation 3. Monitor renal function closely 4. O2 per protocol 5. Pulmonary consultation appreciated 6. Dc IV steroids 7. Monitor volume status 8. Out of bed and ambulate 9. Inflammatory markers are stable 10. GI and DVT prophylaxis Have not been able to get a hold of family. Will discuss with nurses to try to get family number whenever they call. Discharge planning is on hold pending discussion with family Discharge Plan: Home Plan to discharge in: Greater than 2 days - Advance Directives Does patient have a Living Will: No Does patient have a Durable POA for Healthcare: No - Code Status/Comfort Care Code Status: Full Code Physician Review: Patient Assessed, Agree with Above Assessment and Plan Critical Care: No Time Spent Managing PTS Care (In Minutes): 35
[2020-07-18] MEDS ORDERED: TAMSULOSIN 0.4 MG SR CAP PO ONE (08:20)
[2020-07-18] MEDS: VITAMIN D 1000 UNIT TAB PO SCH (09:28)
[2020-07-18] MEDS: CALCIUM CARBONATE 500 MG TAB PO SCH ×2 (09:28→21:00)
[2020-07-18] MEDS: AMIODARONE HCL 200 MG TAB PO SCH ×2 (09:28→21:24)
[2020-07-18] MEDS: APIXABAN 5 MG TABLET PO SCH ×2 (09:29→21:17)
[2020-07-18] MEDS: predniSONE 10 MG TAB PO SCH ×2 (09:30→21:17)
[2020-07-18] MEDS: THIAMINE HCL 100 MG TABLET PO SCH (09:41)
[2020-07-18] MEDS: D5W 1,000 ML with NA BICARB 8.4% 150 MEQ IV SCH ×2 (10:02)
--- NOTE | 2020-07-18 11:29 | PN ---
Subjective: We have been following the patient for atrial fibrillation. The patient was seen on by Dr. Nice who recommended amiodarone IV as well as Eliquis. The patient had COVID-19. E levated troponin was thought to be secondary to demand ischemia. The patient remained in atrial fibr illation today, 07/17/2020, but his heart rate is controlled at 75. We will go ahead and switch him to p.o. amiodarone today. Again, I think, he should be on an anticoagulant. His last potassium was 6.0. He received Kayexalate. Another potassium is pending. We will continue to follow him along. He remains on steroids and he remains on low-dose beta-blockers. DUANE/TRACY Voice ID: [id number] Report ID: [id number]
--- NOTE | 2020-07-18 11:35 | PN ---
Date of Progress Note: 07/18/2020 Subjective: We have been following Mr. Ruiz for renal failure, paroxysmal atrial fibrillation, COV ID. He remains on Eliquis. He is on p.o. amiodarone 200 mg b.i.d. for now. He is also on metoprolo l low dose. He is on Eliquis. His heart rate is 70. He has no cardiac symptoms. He is still havin g some issues with his potassium that have been corrected. His O2 saturation is 94% on 4 L nasal can nula. I would continue his present regimen from a cardiovascular standpoint. Sometime down the road , it would be reasonable for him to have an echocardiogram and a stress test as an outpatient. His e levated troponin at this point is thought secondary to demand ischemia from the COVID pneumonia. DUANE/MODL Voice ID: [id number] Report ID: [id number]
[2020-07-18 12:27] LABS: Potassium 3.7 mmol/L (3.5-5.1)
[2020-07-18] MEDS ORDERED: NA CHLORIDE 0.9% 1,000 ML IV SCH (14:00)
[2020-07-18] MEDS: MELATONIN 3 MG TABLET PO SCH (21:00)
[2020-07-18] MEDS: TAMSULOSIN 0.4 MG SR CAP PO SCH (21:18)
[2020-07-18] MEDS: ATORVASTATIN 20 MG TAB PO SCH (21:18)
--- NOTE | 2020-07-18 22:23 | PN ---
Date of Progress Note: 07/18/2020 Chief Complaint: Respiratory failure, new-onset of atrial fibrillation. History Of Present Illness: Patient is admitted to the hospital because of COVID pneumonia. He deve loped acute kidney injury with hyperkalemia and hyponatremia. Creatinine level was up to 2.5 yesterd ay. He had hyperkalemia treated with Kayexalate and sodium bicarbonate. The patient had bladder sca n that showed 250 mL urine. Bladder not distended on exam. Review of Systems: Denies headache or vision changes. Physical Examination: Lungs: Diminished breath sounds at bases. Heart: S1, S2. Abdomen: Soft. Extremities: No edema. Impression And Plan: 1.Acute on chronic kidney disease stage 3. Creatinine level is elevated and potassium was elevated and treated with bicarbonate and with Kayexalate. Continue low-potassium diet. 2.Acute kidney injury with hyperkalemia. Monitor potassium level and adjust treatment for metabolic acidosis. Monitor bladder scan today. Potassium was within normal limit. Plan is to stop bicarbon ate drip and to evaluate blood work. 3.High BUN and creatinine ratio. Overall, BUN is improved from 121 to 65. 4.Acute kidney injury responding to IV fluids. Plan is to check for any evidence of bladder outlet obstruction. EB/MODL Voice ID: [id number] Report ID: [id number]
[2020-07-19 05:56] LABS: Absolute Lymphocytes (CBC) 0.4 K/uL (0.7-4.9); Basophils % 0.3 % (0-1.3); Hematocrit 44.3 % (39.6-49.0); Lymphocytes % 4.6 % (15.3-44.8); MPV 8.8 fL (7.6-11.3); RBC Red Blood Cell Count 4.95 M/uL (4.33-5.43)
[2020-07-19 06:13] LABS: Albumin 2.2 g/dL (3.4-5.0); Bilirubin Total 1.3 mg/dL (0.2-1.0); Magnesium 1.9 mg/dL (1.8-2.4); Phosphorus 2.6 mg/dL (2.5-4.9); Potassium 3.6 mmol/L (3.5-5.1); Protein, Total 4.8 g/dL (6.4-8.2)
[2020-07-19 06:25] VITALS: BP 111/62; TEMP 97.2
[2020-07-19 06:37] VITALS: BMI 27.4
[2020-07-19 07:36] LABS: Blood Morphology Comment NOT SEEN (NOT SEEN); Platelet Estimate DECR; White Blood Cell Scan OK (OK)
--- NOTE | 2020-07-19 08:06 | P.PN ---
Subjective Date of Service: 07/18/20 Patient clinically doing better. However, patient had hyperkalemia yesterday which is corrected secondary 2 bicarb drip. Patient with metabolic alkalosis and bicarb drip stopped today. Clinically he feels better. He is interacting much more appropriately. His labs are stable today. Will recheck in the morning and anticipate discharge home. Review of Systems 10-point ROS is otherwise unremarkable Physical Examination - Vital Signs Temperature: 97.2 F Blood Pressure: 111/62 Pulse: 66 Respirations: 22 Pulse Ox (%): 90 - Physical Exam General: Alert, In no apparent distress, Oriented x3 Respiratory: Clear to auscultation bilaterally, Normal air movement Cardiovascular: Regular rate/rhythm, Normal S1 S2, No murmurs Gastrointestinal: Normal bowel sounds, Soft and benign, Non-distended, No te nderness Musculoskeletal: No clubbing, No swelling, No tenderness Neurological: Sensation intact, Cranial nerves 3-12 intact - Studies Medications List Reviewed: Yes Assessment & Plan - Problems (Diagnosis) (1) Hyperkalemia Onset Date: 03/28/16 Current Visit: No Status: Resolved (2) DOMINIQUE (acute kidney injury) Onset Date: 03/28/16 Current Visit: Yes Status: Acute (3) Acute respiratory failure with hypoxia Current Visit: Yes Status: Acute (4) Atrial fibrillation Current Visit: Yes Status: Acute Qualifiers: Atrial fibrillation type: paroxysmal Qualified Code(s): I48.0 - Paroxysmal atrial fibrillation (5) Dehydration with hyponatremia Current Visit: Yes Status: Acute (6) Pneumonia due to 2019 novel coronavirus Current Visit: Yes Status: Acute (7) Congestive heart failure (CHF) Current Visit: No Status: Acute (8) Depression with anxiety Onset Date: 12/13/15 Current Visit: No Status: Acute (9) Poor social situation Onset Date: 03/28/16 Current Visit: No Status: Acute (10) Urinary retention Current Visit: No Status: Acute (11) Depression Current Visit: No Status: Chronic Qualifiers: Depression Type: unspecified Qualified Code(s): F32.9 - Major depressive disorder, single episode, unspecified (12) HTN (hypertension) Onset Date: 12/13/15 Current Visit: No Status: Chronic Qualifiers: Hypertension type: essential hypertension Qualified Code(s): I10 - Essential (primary) hypertension (13) History of bladder cancer Current Visit: No Status: Chronic - Plan 1. DC bicarb drip; potassium corrected; renal function stable; repeat potassium level in the morning 2. Continue medication for rate control including amiodarone and Eliquis for anti coagulation; repeat LFTs 3. Continue with therapy and assisting patient getting out of bed and ambulating 4. O2 per protocol 5. Pulmonary consultation appreciated 6. Dc IV steroids 7. Monitor volume status 8. GI and DVT prophylaxis Spoke with daughter and she is okay with patient going home with outpatient follow-up. Will get home health to follow patient and monitor labs as well. Currently patient is doing well in is 1 to go home. Spoke to him about his labs and possible discharge if these are stable. Discharge Plan: Home (With home health) Plan to discharge in: 48 Hours - Advance Directives Does patient have a Living Will: No Does patient have a Durable POA for Healthcare: No - Code Status/Comfort Care Code Status: Full Code Physician Review: Patient Assessed, Agree with Above Assessment and Plan Critical Care: No Time Spent Managing PTS Care (In Minutes): 30
[2020-07-19] MEDS: predniSONE 10 MG TAB PO SCH (09:00)
[2020-07-19] MEDS: VITAMIN D 1000 UNIT TAB PO SCH (09:00)
[2020-07-19] MEDS: CALCIUM CARBONATE 500 MG TAB PO SCH (09:00)
[2020-07-19] MEDS: AMIODARONE HCL 200 MG TAB PO SCH (09:00)
[2020-07-19] MEDS: THIAMINE HCL 100 MG TABLET PO SCH (09:00)
[2020-07-19] MEDS: APIXABAN 5 MG TABLET PO SCH (09:02)
[2020-07-19 09:51] VITALS: O2SAT 95
--- NOTE | 2020-07-24 01:44 | P.DS ---
Discharge Date: 07/19/20 Disposition: DC HOME/HOME HEALTH CARE Discharge Condition: FAIR Reason for Admission: Respiratory failure new onset atrial fibrillation - Problems (1) Hyperkalemia Onset Date: 03/28/16 Status: Resolved (2) DOMINIQUE (acute kidney injury) Onset Date: 03/28/16 Status: Acute (3) Acute respiratory failure with hypoxia Status: Acute (4) Atrial fibrillation Status: Acute Qualifiers: Atrial fibrillation type: paroxysmal Qualified Code(s): I48.0 - Paroxysmal atrial fibrillation (5) Dehydration with hyponatremia Status: Acute (6) Pneumonia due to 2019 novel coronavirus Status: Acute (7) Congestive heart failure (CHF) Status: Acute (8) Depression with anxiety Onset Date: 12/13/15 Status: Acute (9) Poor social situation Onset Date: 03/28/16 Status: Acute (10) Urinary retention Status: Acute (11) Depression Status: Chronic Qualifiers: Depression Type: unspecified Qualified Code(s): F32.9 - Major depressive disorder, single episode, unspecified (12) HTN (hypertension) Onset Date: 12/13/15 Status: Chronic Qualifiers: Hypertension type: essential hypertension Qualified Code(s): I10 - Essential (primary) hypertension (13) History of bladder cancer Status: Chronic Brief History of Present Illness: This is an 80-year-old male with a history of hypertension, high cholesterol that presented to the emergency room for general weakness and shortness of breath that started about 2 days ago. Patient was diagnose with coated on June 25 and was admitted and discharged on June 27. Patient came back with worsening of symptoms today. Stated that he has had increased shortness of breath with cough and dyspnea on exertion. Patient was worked up in the emergency room and found to have hemoglobin of 20, hematocrit of 58, white cell of 8.6, platelets of 267. Patient had a sodium of 126, potassium is 6.7, chloride of 98, bicarb 16, BUN of 136, creatinine of 2.54, glucose of 108. Patient had troponin of 0.20, lactated 2.1, pro calcitonin of 0.37, magnesium of 3.8. Patient's initial presentation and vital signs revealed him to be dyspneic with a respiratory rate of 24 and a room air pulse ox of 89%. Medicine was consulted at that time for admission Hospital Course: Patient had a significantly prolonged hospitalization. Patient has done well clinically. At this time, patient is Angela for discharge with home health. Patient will follow with PCP and pulmonary in 1-2 weeks. Return to the Emergency room if symptoms worsen. At this time patient is stable for discharge home. Vital Signs/Physical Exam: Temp Pulse Resp BP Pulse Ox 97.2 F 66 22 H 111/62 90 L 07/19/20 08:06 07/19/20 08:06 07/19/20 08:06 07/19/20 08:06 07/19/20 08:06 General: Alert, In no apparent distress, Oriented x3 Laboratory Data at Discharge: WBC 8.8 K/uL (4.3-10.9) D 07/19/20 05:30 Hgb 15.6 g/dL (13.6-17.9) 07/19/20 05:30 Hct 44.3 % (39.6-49.0) 07/19/20 05:30 Plt Count 72 K/uL (152-406) L D 07/19/20 05:30 PT 12.6 SECONDS (9.5-12.5) H 07/06/20 21:30 INR 1.07 07/06/20 21:30 Sodium 140 mmol/L (136-145) 07/19/20 05:30 Potassium 3.6 mmol/L (3.5-5.1) 07/19/20 05:30 BUN 62 mg/dL (7-18) H 07/19/20 05:30 Creatinine 1.13 mg/dL (0.55-1.3) 07/19/20 05:30 Glucose 97 mg/dL (74-106) 07/19/20 05:30 Phosphorus 2.6 mg/dL (2.5-4.9) 07/19/20 05:30 Magnesium 1.9 mg/dL (1.8-2.4) 07/19/20 05:30 Total Bilirubin 1.3 mg/dL (0.2-1.0) H 07/19/20 05:30 AST 45 U/L (15-37) H 07/19/20 05:30 ALT 155 U/L (12-78) H D 07/19/20 05:30 Alkaline Phosphatase 100 U/L (45-117) 07/19/20 05:30 Troponin I 0.16 ng/mL (0.0-0.045) H 07/07/20 05:10 Triglycerides 114 mg/dL (<150) 07/07/20 05:10 Cholesterol 104 mg/dL (<200) 07/07/20 05:10 HDL Cholesterol 26 mg/dL (40-60) L 07/07/20 05:10 Cholesterol/HDL Ratio 4.00 07/07/20 05:10 Lipase 123 U/L (73-393) 07/06/20 21:30 Home Medications: Aspirin [Aspirin EC 81 MG] 1 tab PO DAILY 07/09/20 Gabapentin 300 mg PO BID 07/09/20 Amiodarone HCl [Cordarone*] 200 mg PO DAILY #30 tab 07/19/20 Apixaban [Eliquis] 5 mg PO BID #60 tablet 07/19/20 Atorvastatin Calcium [Lipitor*] 20 mg PO BEDTIME #30 tab 07/19/20 Calcium Carbonate [Oscal*] 1,000 mg PO BID #60 tab 07/19/20 Cholecalciferol (Vitamin D3) [Vitamin D 1000 Iu Tab*] 2,000 unit PO DAILY #30 tab 07/19/20 Melatonin [Melatonin*] 3 mg PO BEDTIME #30 tablet 07/19/20 Metoprolol Tartrate [Lopressor*] 25 mg PO BID 6AM 6PM #60 tab 07/19/20 Tamsulosin [Flomax*] 0.8 mg PO BEDTIME #30 cap 07/19/20 Thiamine HCl [Vitamin B-1*] 200 mg PO DAILY #30 tablet 07/19/20 predniSONE [Deltasone*] 10 mg PO BID #10 tab 07/19/20 New Medications: Amiodarone HCl [Cordarone*] 200 mg PO DAILY #30 tab predniSONE [Deltasone*] 10 mg PO BID #10 tab Apixaban [Eliquis] 5 mg PO BID #60 tablet Tamsulosin [Flomax*] 0.8 mg PO BEDTIME #30 cap Atorvastatin Calcium [Lipitor*] 20 mg PO BEDTIME #30 tab Metoprolol Tartrate [Lopressor*] 25 mg PO BID 6AM 6PM #60 tab Melatonin [Melatonin*] 3 mg PO BEDTIME #30 tablet Calcium Carbonate [Oscal*] 1,000 mg PO BID #60 tab Thiamine HCl [Vitamin B-1*] 200 mg PO DAILY #30 tablet Cholecalciferol (Vitamin D3) [Vitamin D 1000 Iu Tab*] 2,000 unit PO DAILY #30 tab Patient Discharge Instructions: -OK TO DC IV AND DC HOME. -FOLLOW-UP WITH PCP IN 1-2 WEEKS. -FOLLOW-UP WITH Pulmonary IN 1-2 WEEKS. -PLEASE MAKE SURE ALL DIAGNOSTIC STUDIES ARE AVAILABLE AND HAVE BEEN REVIEWED WITH PATIENT PRIOR TO DISCHARGE. -RETURN TO THE ER IF symptoms worsen. -CALL DR. PINON AT [phone] IF ANY QUESTIONS REGARDING HOSPITAL STAY. -PLEASE CALL THE FLOOR AT [phone] IF ANY MEDICATION OR NURSING QUESTIONS Diet: AHA Activity: Fall precautions Followup: Unknown,U [Primary Care Provider] - Time spent managing pt's care (in minutes): 35
== END 2020-07-19 09:35 | disposition home health service (06) | DRG 871 ==
LOC: ER 20:58 → ERHOLD 23:55 → 3RD-ICU 07-07 00:53 → 4TH 07-16 20:25
PROVIDERS: ADMIT Internal Medicine; ATTEND Hospitalist
PROC: 5A09557 Assistance with Respiratory Ventilation, Greater than 96 Consecutive Hours, Continuous Positive Airway Pressure (ICD-10-PCS; principal; 2020-07-10)
DX: A41.89 Other specified sepsis (principal); U07.1 COVID-19; J12.89 Other viral pneumonia; R65.21 Severe sepsis with septic shock; J96.01 Acute respiratory failure with hypoxia; N17.0 Acute kidney failure with tubular necrosis; I50.31 Acute diastolic (congestive) heart failure; E87.1 Hypo-osmolality and hyponatremia; E87.2 Acidosis; I13.0 Hypertensive heart and chronic kidney disease with heart failure and stage 1 through stage 4 chronic kidney disease, or unspecified chronic kidney disease; I24.8 Other forms of acute ischemic heart disease; E87.3 Alkalosis; N18.30 Chronic kidney disease, stage 3 unspecified; E87.5 Hyperkalemia; E78.5 Hyperlipidemia, unspecified; E83.41 Hypermagnesemia; F41.8 Other specified anxiety disorders; C67.9 Malignant neoplasm of bladder, unspecified; N28.9 Disorder of kidney and ureter, unspecified; I48.0 Paroxysmal atrial fibrillation; E86.0 Dehydration; N32.0 Bladder-neck obstruction; D75.1 Secondary polycythemia; R77.8 Other specified abnormalities of plasma proteins; R33.9 Retention of urine, unspecified; Z79.899 Other long term (current) drug therapy; Z91.14 Patient's other noncompliance with medication regimen; Z79.01 Long term (current) use of anticoagulants; Z79.52 Long term (current) use of systemic steroids; Z79.82 Long term (current) use of aspirin
CPT/HCPCS: 36415; 71045; 74176; 80048; 80053; 80061; 80076; 81001; 82550; 82728; 82805; 82947; 83605; 83690; 83735; 83880; 84100; 84132; 84145; 84484; 85025; 85610; 86140; 87040; 87086; 87088; 87804; 93005; 94002; 94003; 94660; 94760; 97110; 97112; 97116; 97161; 97530; 99285; J0282; J0456; J0610; J0696; J1100; J2405; J2920; J2930; J3411; J7030; J7050; J7060; J7512; U0003

== ENCOUNTER 2020-08-15 14:49 | Emergency (ER) | payer MEDICARE, OTHER ==
--- OUTSIDE RECORDS SUMMARY | 2020-08-15 16:10 | XMS REPORT | Clinical Summary ---
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
--- OUTSIDE RECORDS SUMMARY | 2020-08-15 16:10 | XMS REPORT | Clinical Summary ---
:1940 Author Organization [facility] Address [address] [place] [address] Care Team Providers Name Role Phone Donte Rosas MD Primary Care Provider Donte Rosas MD Unavailable Allergies Active Allergy Reactions Severity Noted Date Comments Darci Inhibitors Other (See Comments) High 07/27/2015 Hyper kalemia per [facility] file Medications Medication Sig Dispensed Refills [...] YRS Completed 06/29/2015 Implants Implanted Type Area Main Line Station Engineer Device Shelf Model / Identifier Expiration Serial / Date Lot Mynxgrip Vascular Closure Device Df Cardiovascular Left: [id number] 01/16/2019 [id number] / Implanted: Qty: 1 on 01/30/2017 by Filipe Koenig MD at [facility] Groin / [id number] Description:SFA Mynxgrip Vascular Closure Device Cardiovascular Left: CARDINAL [id number] 08/19/2019 / Implanted: Qty: 1 on 10/02/2017 by Filipe Koenig MD at [facility] Groin [facility] / MARS [id number] Description:LSFA Matrix Floseal Hemo W/O Ndl 10 [id number] - [id number] Cement/Fi ller/Adhesive Left: Leg GARCIA:BIOSCI 06/22/2019 [id number] / Implanted: Qty: 1 on 01/28/2018 by Filipe Koenig MD at [facility] / [id number] Description:HEMOSTATIC MATRIX FLOSEAL Synergy Stents-Peripheral [place] [id number] / Implanted: Qty: 1 on 01/30/2017 by Filipe Koenig MD at [facility] [employer] / [id number] Description:Left PT Promus Premier Stents-Peripheral [place] [id number] / Implanted: Qty: 1 on 01/30/2017 by Filipe Koenig MD at [facility] [employer] / [id number] Description:Left PT Promus Premier Stents-Peripheral [place] [id number] / Implanted: Qty: 1 on 01/30/2017 by Filipe Koenig MD at [facility] [employer] / [id number] Description:Left PT Promus Premier Stents-Peripheral [place] [id number] / Implanted: Qty: 1 on 01/30/2017 by Filipe Koenig MD at [facility] [employer] / [id number] Description:Left PT Results Not on fileafter 08/15/2019 Insurance Payer Benefit Plan / Subscriber ID Effective Dates Phone Addre ss Type Group [facility] - AARP/MEDICARE [id number] 2018-Present MEDICARE MGD CARE COMPLETE Ever Personal/Family Self 1940 [address] (Home) [phone] [place], [place] (Work) [id number] Advance Directives For more information, please contact: [phone] Code Status Date Activated Date Inactivated Comments [...]
--- OUTSIDE RECORDS SUMMARY | 2020-08-15 16:13 | XMS REPORT | Continuity of Care Document ---
:1940 Author Organization [facility] t Address [address] [place] [address] Care Team Providers Name Role Phone Donte [...] on 10-02 [facility]: [facility] 00 [place] Eosinophil Eosinophil Disease Active [facility] ia ia 01-29 [facility] - 00:[facility]: [facility] 00 [place] Lower Lower Disease Active [facility] extremity extremity 01-28 [facility] - pain, left pain, left 00:00: Me dical 00 [place] 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 lower limb 7-07 [facility] - ischemia ischemia 00:00: Medica l 00 Center Cellulitis Cellulitis Disease Active [facility] of foot of foot 7 [facility] 00:[facility]: [facility] 00 [place] PAD PAD Disease Active [facility] (periphera (periphera 6-30 [facility] - l artery l artery 00:00: Medica l disease) disease) 00 Center Cellulitis Cellulitis Disease Active [facility] and and 6 [facility] - abscess of abscess of 00:00: Me dical foot foot 00 Center HTN HTN Disease Active [facility] (hypertens (hypertens 6-24 [place] - ion) ion) 00:00: Medical 00 [place] Hydronephr Hydronephr Disease Active [facility] osis osis 6-24 [facility]: [facility] 00 [place] Depression Depression Disease Active [facility] 6-24 [facility] 00:[facility]: Medical 00 [place] Urinary Urinary Disease Active [facility] tract tract 6-23 [facility] - infection, infection, 00:00: Me dical site site 00 [place] unspecifie unspecifie d d Urinary Urinary Disease Active [facility] obstructio obstructio 1-08 [facility] - n n 00:00: Medical 00 [place] Hyperkalem Hyperkalem Disease Active 2014-[address] ia ia 2-10 [facility] - 00:[facility]: Medical 00 [place] Hyponatrem Hyponatrem Disease Active 2014-[address] ia ia 2-10 [facility] - 00:[facility]: Medical 00 [place] Chronic Chronic Disease Active 2014-[address] [facility] [address] kidney kidney 2-10 [facility] - disease, disease, 00:00: Medica l stage 3 stage 3 00 Center Cellulitis Cellulitis Disease Active 2014-[address] of left of left 2-10 [facility] - foot foot 00:00: Medical 00 [place] 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 2-10 [facility] - 00:00: Medical 00 [place] CKD CKD Disease Active 2014-[address] [facility] (chronic (chronic 2-10 [facility] - kidney kidney 00:00: Medical disease) disease) 00 [place] stage 2, stage 2, GFR 60-89 GFR 60-89 ml/min ml/min DOMINIQUE (acute DOMINIQUE (acute Disease Active 2014-[address] kidney kidney 1-13 [facility] - injury) injury) 00:00: Medical 00 [place] Bladder Bladder Disease Active [facility] cancer cancer - [facility] - 00:00: Medical 00 [place] Allergies, Adverse Reactions, Alerts Allergy Allergy Status Severity Reaction(s) Onset Inactive Treating Comm ents Source Name Type Date Date Clinician Darci Propensi Active [place] Inhibito ty to 07-28 Methodi rs adverse 00:00: st reaction 00 s to drug Darci Drug Active Other (See Hyperkale [facility] Inhibito Intolera Comments) 07-27 barbie per [facility] - nce 00:00: BC file Medical 00 [place] Social History Social Habit Start Date Stop Date Quantity Comments Source Sex Assigned At [facility] Alcohol intake 2018-04-13 2018-04-13 [facility] non-drinker of Medical Ce nter alcohol (finding) Medications Ordered Filled Start Stop Current Ordering Indication Dosage Frequency Signature Comments Components Source Medication Medication Date Date Medication? Clinician (SIG) Name Name mirtazapine Yes 15mg QD Take [address] [facility] (REMERON) 9-25 by mouth [facility] - 15 MG 11:49: nightly. Medical tablet 05 [place] SODIUM Yes [id number] Take by [facility] BICARBONATE 9-25 [id number] mouth 3 [facility] - ORAL 11:49: 3D [...] mouth [facility] - tablet 11:49: daily. Medical [address] [place] [address] tamsulosin Yes .4mg QD Take 0.[address] (FLOMAX) 9-25 mg by [facility] - 0.4 mg Cp24 11:49: mouth Medic al 24 hr 05 daily. [place] capsule citalopram Yes 20mg QD Take [address] (CELEXA) 20 9-25 by mouth [facility] - MG tablet 11:49: daily. Medica l 05 [place] gabapentin 2018-0 Yes 300mg QD Take [address] (NEURONTIN) 9-25 mg by [facility] - 300 MG 11:49: mouth Medical capsule 05 daily. [place] cilostazol 2018-0 Yes 50mg Q.5D Take [address] (PLETAL) 50 9-25 by mouth 2 [facility] - MG tablet 11:49: (two) Medical 05 times Center daily. clopidogrel 2018-0 Yes 75mg QD Take [address] (PLAVIX) 75 9-24 by mouth [facility] - mg tablet 15:49: daily. Medica l 51 [place] amLODIPine 0 Yes 2.5mg QD Take 2.[address] (NORVASC) 9-24 mg by [facility] - 2.5 MG 14:34: mouth Medical tablet 41 daily. [place] citalopram 2017-0 Yes 20mg QD Take [address] (CELEXA) 20 9-24 by mouth [facility] - MG tablet 14:34: daily. Medica l 41 [place] aspirin 81 2017-0 Yes 81mg QD Take [address] MG EC 9-24 by mouth [facility] - tablet 14:34: daily. Medical 41 [place] cilostazol 2017-0 Yes 50mg Q.5D Take [address] (PLETAL) 50 9-24 by mouth 2 [facility] - MG tablet 14:34: (two) Medical 41 times Center daily. sodium 2018-0 Yes 1{tbl} [id number] Take [address] bicarbonate 9-24 [id number] tablet by [facility] - 650 MG 14:34: [...] Future Scheduled 2020-02-18 INFLUENZA VACCINE [facility] 00:00:00 [code = INFLUENZA VACCINE] Future Scheduled 2016-12-[address] [facility] - Test 00:00:00 WELLNESS (YEAR 2 or Medical Center FIRST YEAR if no IPPE) [code = MEDICARE ANNUAL WELLNESS (YEAR 2 or FIRST YEAR if no IPPE)] Future Scheduled 2003 65+ PNEUMOCOCCAL [facility] 00:00:00 VACCINE (1 of 1 - PPSV23) [code = 65+ PNEUMOCOCCAL VACCINE (1 of 1 - PPSV23)] Future Scheduled 1988 SHINGLES VACCINES (#1) [place] [facility] 00:00:00 [code = SHINGLES VACCINES (#1)] Future Scheduled 1954 COVID-19 VACCINE (1 of [place] [facility] 00:00:00 2) [code = COVID-19 VACCINE (1 of 2)] Encounters Start End Encounter Admission Attending Care Care Encounter Source Date/Time Date/Time Type Type Clinicians Facility Department ID 2020-06-19 2020-06-19 Laboratory Lab, Adc [facility] [id number] 16:32:43 16:52:43 Only [facility]am [facility] [id number] [place] [id number] [facility] [phone] nal 0[address] One Results Test Description Test Time Test Comments Results Result Sourc e Comments RAD, SPINE, 2018-04-12 Reason for FINAL REPORT PATIENT LUMBAR, COMPLETE 10:47:00 exam:->LEG ID: [id number] (MIN 4 VIEWS) PAINReason for CLINICAL HISTORY: exam:->BACK LEG PAINBACK PAINHIP PAINReason for PAIN TECHNIQUE: Five exam:->HIP PAIN views of the lumbar spine. 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 There is no evidence for lumbar fracture or dislocation. There are multiple abdominal pelvic surgical clips. Signed: Tish Tena Verified Date/Time: 04/12/2018 10:47:57 Reading Location: [facility] Radiology Reading Room , HIP, 2 VIEWS, 2018-04-12 Reason for FINAL REPORT PATIENT RIGHT 10:42:00 exam:->LEG ID: [id number] PAINReason for CLINICAL HISTORY: exam:->BACK LEG PAINBACK PAINHIP PAINReason for PAIN TECHNIQUE: 2 exam:->HIP PAIN views of the right hip COMPARISON: None IMPRESSION: There are degenerative changes of the right hip without evidence of fracture or dislocation. Signed: Tish Tena Verified Date/Time: 04/12/2018 10:42:38 Reading Location: [facility] Radiology Reading Room ALYSIS W/ [...] = 1574) Rare SOURCE(BEAKER) (test code = 1145) Urine, Clean Catch BASIC METABOLIC [id number] 10:05:00 Test Item Value Reference Range Interpretation [...] TO CALCULA TE ESTIMATED GFR. HEPATIC FUNCTION [id number] 09:44:00 Test Item Value Reference Range Interpretation [...] 347) hemolyzed CBC W/PLT COUNT & AUTO [id number] 09:27:00 Test Item Value Reference Range Interpretation [...] 0-1 PERCENT (BEAKER) (test code = 2801) [id number] 06:07:00 Test Item Value Reference Range Interpretation Comments PHOSPHORUS (BEAKER) (test code = 2.9 mg/dL 2.3-4.7 604) [id number] 06:07:00 Test Item Value Reference Range Interpretation Comments MAGNESIUM (BEAKER) (test code = 2.0 mg/dL 1.6-2.6 627) BASIC METABOLIC [id number] 06:07:00 Test Item Value Reference Range Interpretation [...] 0-0 (BEAKER) (test code = 413) POCT-GLUCOSE [id number] 08:10:00 Test Item Value Reference Range Interpretation Comments POC-GLUCOSE METER 109 mg/dL 70-110 TESTED AT [facility] 6720 (BEAKER) (test code = [place] 1538) [address] [id number] 05:39:00 Test Item Value Reference Range Interpretation Comments PHOSPHORUS (BEAKER) (test code = 3.2 mg/dL 2.3-4.7 604) [id number] 05:39:00 Test Item Value Reference Range Interpretation Comments MAGNESIUM (BEAKER) (test code = 2.1 mg/dL 1.6-2.6 627) BASIC METABOLIC [id number] 05:39:00 Test Item Value Reference Range Interpretation [...] 0-0 (BEAKER) (test code = 413) POCT-GLUCOSE [id number] 21:31:00 Test Item Value Reference Range Interpretation Comments POC-GLUCOSE METER 136 mg/dL 70-110 H TESTED AT [facility] 6720 (BEAKER) (test code = [place] 1538) [address] [id number] 03:49:00 Test Item Value Reference Range Interpretation Comments PHOSPHORUS (BEAKER) (test code = 4.2 mg/dL 2.3-4.7 604) [id number] 03:49:00 Test Item Value Reference Range Interpretation Comments MAGNESIUM (BEAKER) (test code = 2.0 mg/dL 1.6-2.6 627) BASIC METABOLIC [id number] 03:49:00 Test Item Value Reference Range Interpretation [...] WBC 0-0 (BEAKER) (test code = 413) [id number] 15:06:00 Test Item Value Reference Range Interpretation Comments PARTIAL THROMBOPLASTIN TIME 31.2 seconds 22.5-36.0 (BEAKER) (test code = 760) BASIC METABOLIC [id number] 15:05:00 Test Item Value Reference Range Interpretation [...] WBC 0-0 (BEAKER) (test code = 413) [id number] 12:59:00 Test Item Value Reference Range Interpretation Comments ACTIVATED CLOTTING TIME 120 sec TEST ED AT [place] [address] ([facility]) (test code = [place] [facility]) [address] [id number] 12:59:00 Test Item Value Reference Range Interpretation Comments ACTIVATED CLOTTING TIME 230 sec TEST ED AT [place] [address] ([facility]) (test code = [place] [facility]) [address] [id number] 12:59:00 Test Item Value Reference Range Interpretation Comments ACTIVATED CLOTTING TIME 257 sec TEST ED AT [place] [address] ([facility]) (test code = [place] [facility]) [address] [id number] 12:59:00 Test Item Value Reference Range Interpretation Comments ACTIVATED CLOTTING TIME 246 sec TEST ED AT [place] [address] ([facility]) (test code = [place] [facility]) [address] [id number] 12:59:00 Test Item Value Reference Range Interpretation Comments ACTIVATED CLOTTING TIME 263 sec TEST ED AT [place] [address] (BEAKER) (test code = [place] [address]) [address] [id number] 12:59:00 Test Item Value Reference Range Interpretation Comments ACTIVATED CLOTTING TIME 263 sec TEST ED AT [place] [address] (BEAKER) (test code = [place] [address]) [address] BLOOD GAS, [id number] 11:14:00 Test Item Value Reference Range Interpretation [...] (test code = 1819) 55.0 % GLUCOSE-STAT [id number] 11:13:00 Test Item Value Reference Range Interpretation Comments GLUCOSE RANDOM (BEAKER) (test code 104 mg/dL 70-110 = 652) SODIUM NA-STAT [id number] 11:13:00 Test Item Value Reference Range Interpretation Comments SODIUM (BEAKER) (test code = 381) 137 meq/L 135-148 POTASSIUM-STAT [id number] 11:13:00 Test Item Value Reference Range Interpretation Comments POTASSIUM (BEAKER) (test code = 4.2 meq/L 3.6-5.5 379) HGB/HCT (H&H) - STAT [id number] 11:13:00 Test Item Value Reference Range Interpretation Comments HEMOGLOBIN (BEAKER) (test code = 14.1 g/dL 13.0-16.8 410) HEMATOCRIT (BEAKER) (test code = 41.0 % 40.0-50.0 411) CALCIUM, [id number] 11:13:00 Test Item Value Reference Range Interpretation Comments CALCIUM IONIZED (BEAKER) (test 1.12 mmol/L 1.12-1.27 code = 698) PH, BLOOD (BEAKER) (test code = 7.40 1810) GLUCOSE-STAT [id number] 10:14:00 Test Item Value Reference Range Interpretation Comments GLUCOSE RANDOM (BEAKER) (test code 105 mg/dL 70-110 = 652) SODIUM NA-STAT [id number] 10:14:00 Test Item Value Reference Range Interpretation Comments SODIUM (BEAKER) (test code = 381) 135 meq/L 135-148 POTASSIUM-STAT [id number] 10:14:00 Test Item Value Reference Range Interpretation Comments POTASSIUM (BEAKER) (test code = 4.4 meq/L 3.6-5.5 379) HGB/HCT (H&H) - STAT [id number] 10:14:00 Test Item Value Reference Range Interpretation Comments HEMOGLOBIN (BEAKER) (test code = 14.5 g/dL 13.0-16.8 410) HEMATOCRIT (BEAKER) (test code = 43.0 % 40.0-50.0 411) CALCIUM, [id number] 10:14:00 Test Item Value Reference Range Interpretation Comments CALCIUM IONIZED (BEAKER) (test 1.18 mmol/L 1.12-1.27 code = 698) PH, BLOOD (BEAKER) (test code = 7.34 1810) BLOOD GAS, [id number] 10:14:00 Test Item Value Reference Range Interpretation [...] code = 1819) 70.0 % SODIUM NA-STAT [id number] 08:32:00 Test Item Value Reference Range Interpretation Comments SODIUM (BEAKER) (test code = 381) 134 meq/L 135-148 L CALCIUM, [id number] 08:31:00 Test Item Value Reference Range Interpretation Comments CALCIUM IONIZED (BEAKER) (test 1.07 mmol/L 1.12-1.27 L code = 698) PH, BLOOD (BEAKER) (test code = 7.33 1810) BLOOD GAS, [id number] 08:31:00 Test Item Value Reference Range Interpretation [...] (test code = 1819) 60.0 % GLUCOSE-STAT [id number] 08:30:00 Test Item Value Reference Range Interpretation Comments GLUCOSE RANDOM (BEAKER) (test code = 97 mg/dL 70-110 652) POTASSIUM-STAT [id number] 08:30:00 Test Item Value Reference Range Interpretation Comments POTASSIUM (BEAKER) (test code = 4.6 meq/L 3.6-5.5 379) HGB/HCT (H&H) - STAT [id number] 08:30:00 Test Item Value Reference Range Interpretation Comments HEMOGLOBIN (BEAKER) (test code = 15.0 g/dL 13.0-16.8 410) HEMATOCRIT (BEAKER) (test code = 44.0 % 40.0-50.0 411) [id number] 07:27:00 Test Item Value Reference Range Interpretation Comments BLOOD UREA NITROGEN (BEAKER) (test 49 mg/dL 7-21 H code = 354) PROTHROMBIN [id number] 06:48:00 Test Item Value Reference Range Interpretation [...] 0-1 PERCENT (BEAKER) (test code = 2801) [id number] 11:22:00 Test Item Value Reference Range Interpretation Comments SODIUM (BEAKER) (test 139 meq/L 136-145 code = 381) POTASSIUM (BEAKER) 4.9 meq/L 3.5-5.1 Specimen slightly (test code = 379) hemolyzed CHLORIDE (BEAKER) 108 meq/L 98-107 H (test code = 382) CO2 (BEAKER) (test 22 meq/L 22-29 code = 355) [id number] 11:22:00 Test Item Value Reference Range Interpretation Comments GLUCOSE RANDOM (BEAKER) (test code 102 mg/dL 70-105 = 652) BUN AND [id number] 11:22:00 Test Item Value Reference Range Interpretation [...] S NOT APPLICABLE FOR DIALYSIS PATIEN TS. [id number] 08:56:00 Test Item Value Reference Range Interpretation Comments HEMOGLOBIN (BEAKER) (test code = 15.9 GM/DL 13.7-17.5 410) BASIC METABOLIC [id number] 01:34:00 Test Item Value Reference Range Interpretation [...] GFR I S NOT APPLICABLE FOR DIALYSIS JOSIE AVALOS [id number] 01:32:00 Test Item Value Reference Range Interpretation Comments PARTIAL THROMBOPLASTIN TIME 69.3 seconds 22.5-36.0 H (BEAKER) (test code = 760) CBC W/PLT COUNT & AUTO [id number] 01:23:00 Test Item Value Reference Range Interpretation [...] 0-1 PERCENT (BEAKER) (test code = 2801) [id number] 04:46:00 Test Item Value Reference Range Interpretation [...] for patients with mechanical heart valves.BASIC METABOLIC [id number] 02:31:00 Test Item Value Reference Range Interpretation [...] PATIEN TS. CBC W/PLT COUNT & AUTO [id number] 02:17:00 Test Item Value Reference Range Interpretation [...] = 2801) CBC W/PLT COUNT & AUTO [id number] 07:53:00 Test Item Value Reference Range Interpretation [...] 46 pg/mL 0-100 (test code = 700) [id number] 07:22:00 Test Item Value Reference Range Interpretation Comments PHOSPHORUS (BEAKER) (test code = 2.8 mg/dL 2.3-4.7 604) [id number] 07:22:00 Test Item Value Reference Range Interpretation Comments MAGNESIUM (BEAKER) (test code = 1.9 mg/dL 1.6-2.6 627) BASIC METABOLIC [id number] 07:22:00 Test Item Value Reference Range Interpretation [...] NOT APPLICABLE FOR DIALYSIS PATIEN TS. CALCIUM, [id number] 07:05:00 Test Item Value Reference Range Interpretation Comments CALCIUM IONIZED (BEAKER) (test 0.90 mmol/L 1.12-1.27 L code = 698) PH, BLOOD (BEAKER) (test code = 7.42 1810) CBC W/PLT COUNT & AUTO [id number] 08:13:00 Test Item Value Reference Range Interpretation [...] (BEAKER) (test code = 413) 0.00BASIC METABOLIC [id number] 06:38:00 Test Item Value Reference Range Interpretation [...] (test 65 U/L 29-200 code = 380) [id number] 06:37:00 Test Item Value Reference Range Interpretation Comments PHOSPHORUS (BEAKER) (test code = 3.8 mg/dL 2.3-4.7 604) [id number] 06:37:00 Test Item Value Reference Range Interpretation Comments MAGNESIUM (BEAKER) (test code = 2.1 mg/dL 1.6-2.6 627) B-TYPE NATRIURETIC FACTOR (BNP)[id number] 06:28:00 Test Item Value Reference Range Interpretation Comments B-TYPE NATRIURETIC PEPTIDE (BEAKER) 36 pg/mL 0-100 (test code = 700) [id number] 06:16:00 Test Item Value Reference Range Interpretation Comments PARTIAL THROMBOPLASTIN TIME 152.1 seconds 22.5-36.0 HH (BEAKER) (test code = 760) CALCIUM, [id number] 06:12:00 Test Item Value Reference Range Interpretation Comments CALCIUM IONIZED (BEAKER) (test 1.09 mmol/L 1.12-1.27 L code = 698) PH, BLOOD (BEAKER) (test code = 7.25 1810) [id number] 23:50:00 Test Item Value Reference Range Interpretation Comments PARTIAL THROMBOPLASTIN TIME 87.0 seconds 22.5-36.0 H (BEAKER) (test code = 760) [id number] 15:04:00 Test Item Value Reference Range Interpretation Comments PARTIAL THROMBOPLASTIN TIME 43.2 seconds 22.5-36.0 H (BEAKER) (test code = 760) [id number] 12:41:00 Test Item Value Reference Range Interpretation Comments PARTIAL THROMBOPLASTIN TIME 192.4 seconds 22.5-36.0 HH (BEAKER) (test code = 760) Prior to initiating heparinPLATELET [id number] 12:21:00 Test Item Value Reference Range Interpretation Comments PLATELET COUNT (BEAKER) (test 155 K/CU MM 150-430 code = 756) BASIC METABOLIC [id number] 09:42:00 Test Item Value Reference Range Interpretation [...] S NOT APPLICABLE FOR DIALYSIS PATIEN TS. [id number] 09:30:00 Test Item Value Reference Range Interpretation [...] K/ L 0.00-0.20 (test code = 417) [id number] 18:10:00 Test Item Value Reference Range Interpretation Comments ACTIVATED CLOTTING TIME 202 sec TEST ED AT [facility] 6720 (BEAKER) (test code = [place] [address]) [address] BLOOD [id number] 00:00:00 Test Item Value Reference Range Interpretation Comments CULTURE (BEAKER) (test No growth in 5 days code = 1095) URINE [id number] 11:38:00 Test Item Value Reference Range Interpretation Comments CULTURE (BEAKER) (test code = 1095) No growth [id number] 07:05:00 Test Item Value Reference Range Interpretation Comments PHOSPHORUS (BEAKER) (test code = 3.2 mg/dL 2.3-4.7 604) [id number] 07:05:00 Test Item Value Reference Range Interpretation Comments MAGNESIUM (BEAKER) (test code = 2.3 mg/dL 1.6-2.6 627) COMPREHENSIVE METABOLIC [id number] 07:05:00 Test Item Value Reference Range Interpretation [...] NOT APPLICABLE FOR DIALYSIS PATIEN TS. CALCIUM, [id number] 06:43:00 Test Item Value Reference Range Interpretation Comments CALCIUM IONIZED (BEAKER) (test 1.08 mmol/L 1.12-1.27 L code = 698) PH, BLOOD (BEAKER) (test code = 7.35 1810) CBC W/PLT COUNT & AUTO [id number] 06:36:00 Test Item Value Reference Range Interpretation [...] K/ L 0.00-0.20 (test code = 417) [id number] 05:54:00 Test Item Value Reference Range Interpretation Comments PHOSPHORUS (BEAKER) (test code = 3.8 mg/dL 2.3-4.7 604) [id number] 05:54:00 Test Item Value Reference Range Interpretation Comments MAGNESIUM (BEAKER) (test code = 2.5 mg/dL 1.6-2.6 627) BASIC METABOLIC [id number] 05:54:00 Test Item Value Reference Range Interpretation [...] 89 U/L 29-200 code = 380) CALCIUM, [id number] 05:29:00 Test Item Value Reference Range Interpretation Comments CALCIUM IONIZED (BEAKER) (test 1.02 mmol/L 1.12-1.27 L code = 698) PH, BLOOD (BEAKER) (test code = 7.33 1810) EOSINOPHIL SMEAR, [id number] 16:25:00 Test Item Value Reference Range Interpretation Comments EOSINOPHIL SMEAR, URINE Rare EOS =less than No EOS seen A (BEAKER) (test code = 5% WBCs seen are EOS 1851) BASIC METABOLIC [id number] 16:09:00 Test Item Value Reference Range Interpretation [...] NOT APPLICABLE FOR DIALYSIS PATIEN TS. OSMOLALITY, [id number] 13:18:00 Test Item Value Reference Range Interpretation Comments OSMOLALITY URINE (BEAKER) (test 379 mOsm/kg 40-1400 code = 614) HEMOGLOBIN [id number] 09:05:00 Test Item Value Reference Range Interpretation Comments HEMOGLOBIN A1C (BEAKER) (test code = 5.8 % 4.3-6.1 368) CBC W/PLT COUNT & AUTO [id number] 07:12:00 Test Item Value Reference Range Interpretation [...] 0.00-0.20 (test code = 417) 0.00BASIC METABOLIC [id number] 06:43:00 Test Item Value Reference Range Interpretation [...] APPLICABLE FOR DIALYSIS PATIEN TS. URINALYSIS W/ [id number] 03:12:00 Test Item Value Reference Range Interpretation [...] 1574) SOURCE(BEAKER) (test code = Urine, Voided 1129) CHLORIDE, RANDOM [id number] 01:29:00 Test Item Value Reference Range Interpretation Comments CHLORIDE URINE (BEAKER) (test code = 62 meq/L 682) Reference Range: No NormalsCREATININE, RANDOM [id number] 01:29:00 Test Item Value Reference Range Interpretation Comments CREATININE URINE (BEAKER) (test 49.9 mg/dL code = 375) Reference Range: No NormalsPOTASSIUM, RANDOM [id number] 01:29:00 Test Item Value Reference Range Interpretation Comments POTASSIUM URINE (BEAKER) (test 18.3 meq/L code = 195) Reference Range: No NormalsSODIUM, RANDOM [id number] 01:29:00 Test Item Value Reference Range Interpretation Comments SODIUM URINE (BEAKER) (test code = 73 meq/L 243) Reference Range: No NormalsSEDIMENTATION [id number] 21:30:00 Test Item Value Reference Range Interpretation Comments SEDIMENTATION RATE, ERYTHROCYTE 10 mm/HR 0-40 (BEAKER) (test code = 766) C-REACTIVE [id number] 20:44:00 Test Item Value Reference Range Interpretation Comments C-REACTIVE PROTEIN (BEAKER) (test 0.11 mg/dL 0.00-0.50 code = 676) BASIC METABOLIC [id number] 15:53:00 Test Item Value Reference Range Interpretation [...] PATIEN TS. CBC W/PLT COUNT & AUTO [id number] 15:45:00 Test Item Value Reference Range Interpretation [...]
[2020-08-15] MEDS ORDERED: TETRACAINE HCL 0.5% 4ML OPTH ONE (20:00)
[2020-08-15] MEDS ORDERED: FLUORESCEIN SODIUM 1 MG/WRAP ONE (20:01)
--- NOTE | 2020-08-15 20:45 | RAD REPORT ---
EXAM DESCRIPTION: CT - Head Brain Wo Cont - 08/15/2020 8:09 pm CLINICAL HISTORY: Headache COMPARISON: 2019 TECHNIQUE: Computed axial tomography of the head was obtained. IV contrast was not requested. All CT scans are performed using dose optimization technique as appropriate and may include automated exposure control or mA/KV adjustment according to patient size. FINDINGS: An intracranial bleed is not seen . The ventricles are normal in caliber. No extra-axial fluid collection is noted. Frontal lobe atrophy unchanged . Mild low-density areas within periventricular and deep white matter are unchanged. Small left cerebel lar infarct Fluid within the sinuses/ mastoids is not seen. IMPRESSION: No acute intracranial abnormality is seen. If patient's symptoms persist MRI of the bra in would be recommended.
[2020-08-15] MEDS ORDERED: ACYCLOVIR 400 MG TABLET ONE (20:55)
[2020-08-15] MEDS ORDERED: MOXIFLOXACIN HCL 0.5% 3ML OPTH OPTH ONE (21:07)
--- NOTE | 2020-08-15 21:14 | EDPHYS ---
Physician Documentation [facility] Name: Lisandro Livingston Age: 80 yrs Sex: Male : 1940 Arrival Date: 08/15/2020 Time: 14:56 Bed 17 Private MD: ED Physician Mikal Jenkins HPI: 08/15 19:59 This 80 yrs old Male presents to ER via Ambulatory with complaints of Headache rn > 24hrs Old, Eye Swelling. 19:59 The patient is experiencing decreased vision, pain, redness, tearing, The patient rn sustained None. to the right eye, caused by an unknown mechanism. Onset: The symptoms/episode began/occurred 1 week(s) ago. Duration: the symptoms are continuous. Aggravated by blinking, closing eye, opening eye, pressure, rubbing, Alleviated by. Associated signs and symptoms: Pertinent positives: headache, Pertinent negatives: chills, dizziness, fever. Patient does not utilize any form of vision correction. Severity of symptoms: At their worst the symptoms were moderate in the emergency department the symptoms are unchanged. The patient has not experienced similar symptoms in the past. The patient has not recently seen a physician. Historical: - Allergies: 15:40 NKDA; aa5 - PMHx: 15:40 Bladder cancer; Cancer; Hypertension; aa5 - Immunization history:: Adult Immunizations unknown. - Social history:: Smoking status: Patient denies any tobacco usage or history of. - Family history:: not pertinent. - Hospitalizations: : No recent hospitalization is reported. ROS: 19:59 Constitutional: Negative for fever, chills, and weight loss, Eyes: + right eye pain, rn redness, tearing ENT: Negative for injury, pain, and discharge, Neck: Negative for injury, pain, and swelling, Cardiovascular: Negative for chest pain, palpitations, and edema, Respiratory: Negative for shortness of breath, cough, wheezing, and pleuritic chest pain, Abdomen/GI: Negative for abdominal pain, nausea, vomiting, diarrhea, and constipation, MS/Extremity: Negative for injury and deformity, Skin: Negative for injury, rash, and discoloration, Neuro: + right sided headache Exam: 19:59 Constitutional: This is a well developed, well nourished patient who is awake, alert, rn and in no acute distress. Head/Face: Normocephalic, atraumatic. Eyes: Pupils equal round and reactive to light, extra-ocular motions intact. + conjunctival erythema and swelling, no hyphema or hypopyon. + linear fourescein uptake on cornea, no definitive dendritic lesions or ulceration. Tonopen with pressure of 18. Skin: Warm, dry, no lesions on forehead/face Neuro: Awake and alert, GCS 15, oriented to person, place, time, and situation. Cranial nerves II-XII grossly intact. Motor strength 5/5 in all extremities. Sensory grossly intact. Vital Signs: 15:40 BP 133 / 58; Pulse 62; Resp 18 S; Temp 97.6(TE); Pulse Ox 100% on R/A; aa5 20:20 BP 131 / 70; Pulse 65; Resp 19; Pulse Ox 99% ; rr5 21:30 BP 131 / 62; Pulse 60; Resp 14; Pulse Ox 98% ; rr5 MDM: 19:35 Patient medically screened. rn 21:10 Differential diagnosis: Corneal abrasion of Corneal ulcer of Acute iritis of Acute rn glaucoma in keratitis. Data reviewed: vital signs, nurses notes, radiologic studies, CT scan, and as a result, I will discharge patient. Counseling: I had a detailed discussion with the patient and/or guardian regarding: the historical points, exam findings, and any diagnostic results supporting the discharge/admit diagnosis, radiology results, the need for outpatient follow up, to return to the emergency department if symptoms worsen or persist or if there are any questions or concerns that arise at home. Response to treatment: the patient's symptoms have mildly improved after treatment, and as a result, I will discharge patient. Special discussion: I discussed with the patient/guardian in detail that at this point there is no indication for admission to the hospital. It is understood, however, that if the symptoms persist or worsen the patient needs to return immediately for re-evaluation. Based on the history and exam findings, there is no indication for further emergent testing or inpatient evaluation. I discussed with the patient/guardian the need to see the opthamologist for further evaluation of the symptoms. 08/15 21:22 Order name: COVID-19 : Document "Date of Symptom Onset" if Symptomatic. rn 08/15 19:42 Order name: CT Head Brain wo Cont; Complete Time: 21:16 rn Administered Medications: 19:45 Drug: Tetracaine Drops 0.5 % 1 drops Route: Ophthalmic; Site: right eye; em 19:45 Drug: Fluorescein Strip 1 strip Route: Ophthalmic; Site: right eye; em 20:20 Drug: Acyclovir 800 mg Route: PO; rr5 21:04 Drug: Vigamox 0.5 % 2 drops Route: Ophthalmic; Site: right eye; rr5 Disposition: 08/15/20 21:14 Discharged to Home. Impression: Headache, Keratitis, Conjunctivitis. - Condition is Stable. - Discharge Instructions: Bacterial Conjunctivitis. - Prescriptions for Vigamox 0.5 % Ophthalmic Drops - instill 1 drop by OPHTHALMIC route every 8 hours for 7 days; 5 milliliter. Acyclovir 800 mg Oral Tablet - take 1 tablet by ORAL route 5 times per day for 10 days; 50 tablet. - Medication Reconciliation Form, Thank You Letter, Antibiotic Education, Prescription Opioid Use form. - Follow up: Kiara Oates MD; When: 1 - 2 days; Reason: Recheck today's complaints, Re-evaluation by your physician. - Problem is new. - Symptoms have improved. Signatures: Dispatcher [employer] EDTX Osmani Patrick RN RN Mikal Clemente MD MD rn Calderon, Audri, RN RN aa5 Tahir Rand RN RN rr5 Corrections: (The following items were deleted from the chart) 20:02 19:59 Constitutional: This is a well developed, well nourished patient who is awake, rn alert, and in no acute distress. Head/Face: Normocephalic, atraumatic. Eyes: Pupils equal round and reactive to light, extra-ocular motions intact. + conjunctival erythema and swelling, no hyphema or hypopyon. + linear fourescein uptake on cornea, no definitive dendritic lesions or ulceration. Neuro: Awake and alert, GCS 15, oriented to person, place, time, and situation. Cranial nerves II-XII grossly intact. Motor strength 5/5 in all extremities. Sensory grossly intact. rn 20:04 19:59 Constitutional: This is a well developed, well nourished patient who is awake, rn alert, and in no acute distress. Head/Face: Normocephalic, atraumatic. Eyes: Pupils equal round and reactive to light, extra-ocular motions intact. + conjunctival erythema and swelling, no hyphema or hypopyon. + linear fourescein uptake on cornea, no definitive dendritic lesions or ulceration. Tonopen with pressure of 18. Neuro: Awake and alert, GCS 15, oriented to person, place, time, and situation. Cranial nerves II-XII grossly intact. Motor strength 5/5 in all extremities. Sensory grossly intact. rn 21:40 21:14 08/15/2020 21:14 Discharged to Home. Impression: Headache; Keratitis; rr5 Conjunctivitis. Condition is Stable. Forms are Medication Reconciliation Form, Thank You Letter, Antibiotic Education, Prescription Opioid Use. Follow up: Kiara Oates; When: 1 - 2 days; Reason: Recheck today's complaints, Re-evaluation by your physician. Problem is new. Symptoms have improved. rn
--- NOTE | 2020-08-15 21:14 | ER ---
Nurse's Notes [facility] Name: Lisandro Livingston Age: 80 yrs Sex: Male : 1940 Arrival Date: 08/15/2020 Time: 14:56 Bed 17 Private MD: Diagnosis: Headache;Keratitis;Conjunctivitis Presentation: 08/15 15:40 Chief complaint: Patient states: headache to back of head and swelling to right eye aa5 that began 1 week ago. Pt reports he was COVID-19 positive in June. Pt's son states "his doctor in [place] wants him to be retested for COVID-19 for him to be able to follow-up with him". Initial Sepsis Screen: Does the patient meet any 2 criteria? No. Patient's initial sepsis screen is negative. Does the patient have a suspected source of infection? No. Patient's initial sepsis screen is negative. Risk Assessment: Do you want to hurt yourself or someone else? Patient reports no desire to harm self or others. Onset of symptoms was July 2020. 15:40 Acuity: JUDIT 3 aa5 15:40 Ebola Screen: Patient negative for fever greater than or equal to 101.5 degrees aa5 Fahrenheit, and additional compatible Ebola Virus Disease symptoms. 15:40 Method Of Arrival: Ambulatory aa5 15:40 Coronavirus screen: headache. aa5 Historical: - Allergies: 15:40 NKDA; aa5 - PMHx: 15:40 Bladder cancer; Cancer; Hypertension; aa5 - Immunization history:: Adult Immunizations unknown. - Social history:: Smoking status: Patient denies any tobacco usage or history of. - Family history:: not pertinent. - Hospitalizations: : No recent hospitalization is reported. Screenin:20 Abuse screen: Denies threats or abuse. Denies injuries from another. Nutritional rr5 screening: No deficits noted. Tuberculosis screening: No symptoms or risk factors identified. Fall Risk None identified. Total Wolf Fall Scale indicates No Risk (0-24 pts). Assessment: 20:20 General: Appears in no apparent distress. uncomfortable, Behavior is calm, cooperative, rr5 appropriate for age. Pain: Complains of pain in head Quality of pain is described as aching, Pain began gradually. Neuro: Level of Consciousness is awake, alert, obeys commands, Oriented to person, place, time, situation, Reports headache. Cardiovascular: Capillary refill < 3 seconds Patient's skin is warm and dry. Respiratory: Airway is patent Respiratory effort is even, unlabored, Respiratory pattern is regular, symmetrical. GI: No signs and/or symptoms were reported involving the gastrointestinal system. : No signs and/or symptoms were reported regarding the genitourinary system. EENT: Eyes are tearing on right eye Sclera/Cornea are reddened in right eye Reports. Derm: Skin is intact, is healthy with good turgor, Skin temperature is warm. Musculoskeletal: Capillary refill < 3 seconds. Vital Signs: 15:40 BP 133 / 58; Pulse 62; Resp 18 S; Temp 97.6(TE); Pulse Ox 100% on R/A; aa5 20:20 BP 131 / 70; Pulse 65; Resp 19; Pulse Ox 99% ; rr5 21:30 BP 131 / 62; Pulse 60; Resp 14; Pulse Ox 98% ; rr5 ED Course: 14:56 Patient arrived in ED. am4 15:40 Arm band placed on. aa5 15:42 Triage completed. aa5 19:35 Mikal Jenkins MD is Attending Physician. rn 20:10 Tahir Rand RN is Primary Nurse. rr5 20:10 CT Head Brain wo Cont In Process Unspecified. EDMS 20:20 Patient has correct armband on for positive identification. Call light in reach. Side rr5 rails up X2. Adult w/ patient. 20:45 Assist provider with eye exam of right eye. using fluorescein stain, Performed by Mikal Jenkins MD Patient tolerated well. 21:14 Kiara Oates MD is Referral Physician. rn 21:30 Patient did not have IV access during this emergency room visit. rr5 Administered Medications: 19:45 Drug: Tetracaine Drops 0.5 % 1 drops Route: Ophthalmic; Site: right eye; em 19:45 Drug: Fluorescein Strip 1 strip Route: Ophthalmic; Site: right eye; em 20:20 Drug: Acyclovir 800 mg Route: PO; rr5 21:04 Drug: Vigamox 0.5 % 2 drops Route: Ophthalmic; Site: right eye; rr5 Outcome: 21:14 Discharge ordered by MD. rn 21:39 Discharged to home ambulatory. rr5 21:39 Condition: stable rr5 21:39 Discharge instructions given to patient, family, Instructed on discharge instructions, follow up and referral plans. medication usage, Demonstrated understanding of instructions, follow-up care, medications, Prescriptions given X 1. 21:40 Patient left the ED. rr5 Addendum: 08/18/2020 18:39 Addendum: COVID-19 Result: Negative result given to RN to notify pt. Notified pt of s s negative COVID 19 swab results. Pt advised that even with a negative test result they should remain in isolation until symptom free for 3 days without medication. Pt also advised to return to the ED for worsening symptoms. Signatures: Dispatcher [employer] EDOsmani Sharpe RN RN em Nieto, Roman, MD MD rn Calderon, Audri, RN RN aa5 Wendy Pride RN RN ss Roque, Raymond, RN RN rr5 Samantha Solorzano am4 Corrections: (The following items were deleted from the chart) 08/15 15:46 15:40 Chief complaint: Patient states: headache to back of head and swelling to right aa5 eye that began 1 week ago. Pt reports he was COVID-19 positive in June. aa5
[2020-08-15 21:44] VITALS: BP 133/58; TEMP 97.6; O2SAT 100
== END 2020-08-15 21:40 | disposition home or self-care (01) ==
LOC: ER 14:49
DX: R51.9 Headache, unspecified (principal); H10.9 Unspecified conjunctivitis; H16.9 Unspecified keratitis; I10 Essential (primary) hypertension; Z85.51 Personal history of malignant neoplasm of bladder; Z86.16 Personal history of COVID-19
CPT/HCPCS: 70450; 99284; U0002

== ENCOUNTER 2022-07-19 14:25 | Inpatient (IN) | payer OTHER ==
--- OUTSIDE RECORDS SUMMARY | 2022-07-19 14:32 | XMS REPORT | Continuity of Care Document ---
:1940 Author Organization [facility] t Address [address] [place] [address] Care Team Providers Name Role Phone RAYN STELLA Primary Care Physician [facility] Attending Clinician Unavailable CAMILA MONDRAGON Attending Clinician Unavailable Dilip Hastings DPM Attending Clinician ANTOLIN ZAVALA Attending Clinician Unavailable ALVINA ZAVALA Attending Clinician Unavailable Antolin Zavala MD Attending Clinician CAMILLE PAGAN Attending Clinician Unavailable SUMI DE LEÓN Attending Clinician Unavailable Camille Pagan MD Attending Clinician Alvina Zavala MD Attending Clinician JOAO VINES Attending Clinician Unavailable DILIP HASTINGS Attending Clinician Unavailable Lisa Reyna Attending Clinician Rosanna GOVEA, Filipe Villarreal Attending Clinician Laura GOVEA, Joao Marrero Attending Clinician ADRIAN VILLAREAL Attending Clinician Unavailable Lab, Adc Fam Pob I Attending Clinician Unavailable Adrian Radford Attending Clinician SHIRA HIGH Attending Clinician Unavailable FILIPE LESLIE Attending Clinician Unavailable ANABELLE VERDE Attending Clinician Unavailable MARÍA POLANCO Attending Clinician Unavailable SUMI HAMLIN Attending Clinician Unavailable Mineo_M Admitting Clinician Unavailable FILIPE LESLIE Admitting Clinician Unavailable DIALLO MENDIETA Admitting Clinician Unavailable JUAN AG Admitting Clinician Unavailable HILLARY WHITING Admitting Clinician Unavailable Payers Payer Name Policy Type Policy Number Effective Date Expiration Date S [facility] - [id number] [facility] - DUAL ELIGIBLE (MEDICARE REPLACEMENT/ADVANTA GE - HMO) [facility] [id number] 2019 ADVANTAGE HMO -[facility] 00:00:00 WELLCARE [place] [id number] 2015 2016 HMO-WELLCARE 00:00:00 00:00:00 S - JURISDICTION [id number] C DME MAC - MEDICARE ZZZ [place] HMO [id number] 2016 - SE* SELECTCARE OF 00:00:00 [place] [facility] [place] [id number] HMO-[place]SE[place] PCP ZZZMEDICARE [id number] ADVANTAGE PLAN-O [facility]-MEDICAID - [id number] MEDICAID AARP/MEDICARE [id number] 2018 COMPLETE 00:00:00 Problems Condition Condition Condition Status Onset Resolution Last Treating Co mments Source Name Details Category Date Date Treatment Clinician Date Skin ulcer Skin ulcer Disease Active [facility] of left of left 09-24 [facility] heel, heel, 00:00: of limited to limited to 00 Me dicin breakdown breakdown e of skin of skin (HCCode) (HCCode) 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 02-12 Colleg e autologous autologous 00:00: of vein vein 00 Medicin bypass bypass e graft of graft of left lower left lower extremity extremity with with intermitte intermitte nt nt claudicati claudicati on on Claudicati Claudicati Disease Active [facility] on on 626 College (HCCode) (HCCode) 00:00: of 00 Medicin e Claudicati Claudicati Disease [facility] Eosinophil Eosinophil Disease Active [facility] ia 7[facility]13 [facility] Lower Lower Disease Active [facility] extremity extremity 7-12 [facility] pain, left pain, left 00:00: Me dical 00 Center 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 lower limb 7-07 [facility] ischemia ischemia 00:00: Medica l 00 Center Cellulitis Cellulitis Disease Active [facility] of foot [facility] foot 7 [facility] PAD PAD Disease Active [facility] (periphera (periphera 6-30 [facility] l artery l artery 00:00: Medica l disease) disease) 00 Center Cellulitis Cellulitis Disease Active [facility] and and 6 [facility] abscess of abscess of 00:00: Me dical foot foot 00 Center Incomplete Incomplete Disease Active 2015-07 [facility] bladder bladder 2-13 [facility] emptying emptying 00:00: of 00 Medicin e Hyperkalem Hyperkalem Disease Active 2015-07 [facility] ia ia 1-04 College 00:00: of 00 Medicin e HTN HTN Disease Active [facility] (hypertens (hypertens 6-24 [facility] ion) ion) 00:00: Medical 00 Center Hydronephr Hydronephr Disease Active [facility] osis osis 6-24 [facility] Depression Depression Disease [facility] Urinary Urinary Disease Active [facility] tract tract 6-23 [facility] infection, infection, 00:00: Me dical site site 00 Center unspecifie unspecifie d d PAD PAD Disease Active [facility] (periphera (periphera 2-09 Co llege l artery l artery 00:00: of disease) disease) 00 Medici n (HCCode) (HCCode) e Urinary Urinary Disease Active [facility] obstructio obstructio 1-08 [facility] n 00:00: Medical 00 [place] Renal Renal Disease Active 2014-07 [facility] mass, mass, 2-29 College right right 00:00: of 00 Medicin e Renal Renal Disease Active 2014-07 [facility] cyst, left cyst, left 2-29 Co llege 00:00: of 00 Medicin e Hyperkalem Hyperkalem Disease Active 2014-[address] ia ia 2-10 [facility] 00:[facility] Hyponatrem Hyponatrem Disease Active 2014-[address] ia ia 2-10 [facility] 00:[facility] Chronic Chronic Disease Active 2014-[address] [facility] [address] kidney kidney 2-10 [facility] disease, disease, 00:00: Medica l stage 3 stage 3 00 [facility] Cellulitis Cellulitis Disease Active 2014-[address] of left of left 2-10 [facility] foot foot 00:00: Medical 00 [facility] 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 2-10 [facility] 00:[facility] CKD CKD Disease Active 2014-[address] [facility] (chronic (chronic 2-10 [facility] kidney kidney 00:00: Medical disease) disease) 00 [facility] stage 2, stage 2, GFR 60-89 GFR 60-89 ml/min ml/min Urinary Urinary Disease Active 2014-07 [facility] retention retention 1-24 [facility] 00:00: of 00 Medicin e DOMINIQUE (acute DOMINIQUE (acute Disease Active 2014-[address] kidney kidney 1-13 [facility] injury) injury) 00:00: Medical 00 [facility] COLBY COLBY Disease Active 2014-07 [facility] (stress (stress 1-12 College urinary urinary 00:00: of incontinen incontinen 00 Me dicin ce), male ce), male e Depression Depression Disease Active 2014-07 [facility] 0-02 [facility] 00:00: of 00 Medicin e Prostate Prostate Disease Active [facility] cancer cancer 9-04 College (HCCode) (HCCode) 00:00: of 00 Medicin e Wheezing Wheezing Disease Active [facility] r 9-04 College 00:00: of 00 Medicin e Cataracts, Cataracts, Disease Active [facility] bilateral bilateral 02-08 [facility] 00:00: of 00 Medicin e 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 01-25 Co llege ncy of ncy of 00:00: of aortic aortic 00 Medicin valve valve e Headache Headache Disease Active [facility] disorder disorder 01-18 [facility] e 00:00: of 00 Medicin e Nausea & Nausea & Disease Active [facility] vomiting vomiting 10-06 Colleg e 00:00: of 00 Medicin e Neutropeni Neutropeni Disease Active [facility] a, a, 09-18 [place] drug-induc drug-induc 00:00: of ed ed 00 Medicin (HCCode) (HCCode) e Bladder Bladder Disease Active [facility] cancer cancer 09-14 College (HCCode) (HCCode) 00:00: of 00 Medicin e Bladder Bladder Disease Active [facility] cancer cancer 08-21 [facility] [place] Hematuria Hematuria Disease Active 2013-07 [facility] 09-04 [place] 00:00: of 00 Medicin e Peripheral 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[facility] vascular vascular Colleg e disease disease of (HCCode) (HCCode) Medici n e Chronic Chronic Disease Active [facility] kidney kidney [place] disease disease of Medicin e Allergies, Adverse Reactions, Alerts Allergy Allergy Status Severity Reaction(s) Onset Inactive Treating Comm ents Source Name Type Date Date Clinician Rick Propensi Active [facility]i Inhibito ty to 07-28 [facility] rs adverse 00:00: Hosp[facility] reaction 00 l s to drug Rick Propensi Active Methodi Inhibito ty to 07-28 [facility] rs adverse 00:00: Hospita reaction 00 l s to drug RICK Allergy Active High Other [facility] INHIBITO 1-08 RS 00:00: 00 Rick Drug Active Other (See Hyperkale [facility] Inhibito Intolera Comments) 1-08 barbie per [facility] rs nce 00:00: BC file Medical 00 [facility] Rick Drug Active Other (See Hyperkale [facility] Inhibito Intolera Comments) 1-08 [facility] rs nce 00:00: BCM file Medical 00 [place] Rick Propensi Active 2014-07 hyperkale [facility] Inhibito ty to 2-10 barbie [place] rs adverse 00:00: of reaction 00 Medicin s to e drug NO KNOWN Drug Active Univers ALLERGIE Class ity of S [facility] Social History Social Habit Start Date Stop Date Quantity Comments Source Exposure to Yes University of SARS-CoV-2 (event) [facility] History [facility] of Alcohol Std Drinks Medici ne History [facility] of Alcohol Binge Medicine Tobacco Comment 2021-12-23 2021-12-23 100 pack year [facility] 00:00:00 00:00:00 Medicine Cigarettes smoked 2021-12-23 2021-12-23 [facility] current (pack per 00:00:00 00:00:00 Medicin e day) - Reported Cigarette 2021-12-23 2021-12-23 [facility] pack-years 00:00:00 00:00:00 Medicine Tobacco use and 2021-12-23 2021-12-23 Former smokeless [facility] of exposure 00:00:00 00:00:00 tobacco user Medicine History [facility] 2018-08-31 2018-08-31 1 [facility] of Alcohol Frequency 00:00:00 00:00:00 Medicin e Alcohol intake 2018-04-13 2018-04-[address] [facility] [facility] Anupam es 00:00:00 00:00:00 non-drinker of Medical Ce nter alcohol (finding) Alcohol Comment 2015-08-27 2015-08-27 social drinker [facility] 00:00:00 00:00:00 Medicine History of tobacco 1960-07[birth year]04 2014-03-04 Cigarette Smoker [facility] of use 00:00:00 00:00:00 Medicine Sex Assigned At [address] [facility] 00:00:00 00:[facility]00 [facility] Center Smoking Status Start Date Stop Date Source Tobacco smoking [facility] consumption unknown Ex-smoker 2021-12-23 00:00:00 2021-12-23 [facility] of 00:00:00 Medicine Medications Ordered Filled Start Stop Current Ordering Indication Dosage Frequency Signature Comments Components Source Medication Medication Date Date Medication? Clinician (SIG) Name Name aspirin 81 2021-0 Yes 81mg Take 81 mg [facility] tablet 6-20 by mouth Colleg e 08:41: daily. of 53 Once daily Medicin e Tamsulosin 2-0 Yes [id number] .4mg Take 0.4 [facility] HCl 0.4 MG 6-20 mg by College CAPS 08:41: mouth. of 53 Medicin e SODIUM 2-0 Yes [id number] 10mg Take 10 mg [facility] BICARBONATE 6-20 by mouth 3 Co llege OR 08:41: times of 53 daily. Medicin Takes 3 e tabs by mouth three times a day citalopram 2-0 Yes [id number] 20mg Take 20 mg [facility] (CELEXA) 20 6-20 by mouth [facility] MG tablet 08:41: daily. of 53 Medicin e amlodipine 2-0 Yes [id number] 2.5mg Take 2.5 [facility] (NORVASC) 6-20 mg by College 2.5 MG 08:41: mouth of tablet 53 daily. Medicin e levofloxaci 2-0 Yes 250mg Take 250 [facility] n 6-20 mg by [place] (LEVAQUIN) 08:41: mouth. of 500 MG 53 Medicin tablet e aspirin 81 2-0 Yes 81mg Take 81 mg [facility] MG tablet 6-20 by mouth Colleg e 08:41: daily. of 53 Once daily Medicin e Tamsulosin 2-0 Yes [id number] .4mg Take 0.4 [facility] HCl 0.4 MG 6-20 mg by College CAPS 08:41: mouth. of 53 Medicin e SODIUM 2-0 Yes [id number] 10mg Take 10 mg [facility] BICARBONATE 6-20 by mouth 3 Co llege OR 08:41: times of 53 daily. Medicin Takes 3 e tabs by mouth three times a day citalopram 2-0 Yes [id number] 20mg Take 20 mg [facility] (CELEXA) 20 6-20 by mouth [facility] MG tablet 08:41: daily. of 53 Medicin e amlodipine 2-0 Yes [id number] 2.5mg Take 2.5 [facility] (NORVASC) 6-20 mg by [place] 2.5 MG 08:41: mouth of tablet 53 daily. Medicin e levofloxaci 2-0 Yes 250mg Take 250 [facility] n 6-20 mg by College (LEVAQUIN) 08:41: mouth. of 500 MG 53 Medicin tablet e aspirin 81 2022-0 Yes 81mg Take 81 mg [facility] MG tablet 2-08 by mouth Colleg e 12:16: daily. of 56 Once daily Medicin e Tamsulosin Yes [id number] .4mg Take 0.4 [facility] HCl 0.4 MG 2-08 mg by College CAPS 12:16: mouth. of 56 Medicin e SODIUM Yes [id number] 10mg Take 10 mg [facility] BICARBONATE 2-08 by mouth 3 Co llege OR 12:16: times of 56 daily. Medicin Takes 3 e tabs by mouth three times a day citalopram Yes [id number] 20mg Take 20 mg [facility] (CELEXA) 20 2-08 by mouth [facility] MG tablet 12:16: daily. of 56 Medicin e amlodipine Yes [id number] 2.5mg Take 2.5 [facility] (NORVASC) 2-08 mg by [place] 2.5 MG 12:16: mouth of tablet 56 daily. Medicin e levofloxaci Yes 250mg Take 250 [facility] n 2-08 mg by College (LEVAQUIN) 12:16: mouth. of 500 MG 56 Medicin tablet e aspirin 81 2020-07 Yes 81mg Take 81 mg [facility] MG tablet 2-06 by mouth Colleg e 14:21: daily. of 54 Once daily Medicin e Tamsulosin 2020-07 Yes [id number] .4mg Take 0.4 [facility] HCl 0.4 MG 2-06 mg by College CAPS 14:21: mouth. of 54 Medicin e SODIUM 2020-07 Yes [id number] 10mg Take 10 mg [facility] BICARBONATE 2-06 by mouth 3 Co llege OR 14:21: times of 54 daily. Medicin Takes 3 e tabs by mouth three times a day citalopram 2020-07 Yes [id number] 20mg Take 20 mg [facility] (CELEXA) 20 2-06 by mouth [facility] MG tablet 14:21: daily. of 54 Medicin e amlodipine 2020-07 Yes [id number] 2.5mg Take 2.5 [facility] (NORVASC) 2-06 mg by College 2.5 MG 14:21: mouth of tablet 54 daily. Medicin e levofloxaci 2020-07 Yes 250mg Take 250 [facility] n 2-06 mg by [place] ([facility]) 14:21: mouth. of 500 MG 54 Medicin tablet e aspirin 81 0 Yes 81mg Take 81 mg [facility] MG tablet 9-27 by mouth Colleg e 13:30: daily. of Once daily Medicin e Tamsulosin Yes [id number] .4mg Take 0.4 [facility] HCl 0.4 MG 9-27 mg by College CAPS 13:30: mouth. of Medicin e SODIUM Yes [id number] 10mg Take 10 mg [facility] BICARBONATE 9-27 by mouth 3 Co llege OR 13:30: times of 01 daily. Medicin Takes 3 e tabs by mouth three times a day citalopram 2020- Yes [id number] 20mg Take 20 mg [facility] (CELEXA) 20 9-27 by mouth [facility] MG tablet 13:30: daily. of Medicin e amlodipine Yes [id number] 2.5mg Take 2.5 [facility] (NORVASC) 9-27 mg by [place] 2.5 MG 13:30: mouth of tablet daily. Medicin e levofloxaci Yes 250mg Take 250 [facility] n 9-27 mg by [place] ([facility]) 13:30: mouth. of 500 MG 01 Medicin tablet e aspirin 81 0 Yes 81mg Take 81 mg [facility] MG tablet 9-27 by mouth Colleg e 13:30: daily. of Once daily Medicin e Tamsulosin Yes [id number] .4mg Take 0.4 [facility] HCl 0.4 MG 9-27 mg by College CAPS 13:30: mouth. of Medicin e SODIUM Yes [id number] 10mg Take 10 mg [facility] BICARBONATE 9-27 by mouth 3 Co llege OR 13:30: times of 01 daily. Medicin Takes 3 e tabs by mouth three times a day citalopram 2020- Yes [id number] 20mg Take 20 mg [facility] (CELEXA) 20 9-27 by mouth [facility] MG tablet 13:30: daily. of Medicin e amlodipine Yes [id number] 2.5mg Take 2.5 [facility] (NORVASC) 9-27 mg by College 2.5 MG 13:30: mouth of tablet 01 daily. Medicin e levofloxaci Yes 250mg Take 250 [facility] n 9-27 mg by [place] (LEVAQUIN) 13:30: mouth. of 500 MG 01 Medicin tablet e mirtazapine 0 2020- No 15mg Take 15 mg [facility] (REMERON) 04-15 by mouth Colle ge 15 MG 13:29: 00:00 nightly. of tablet 55 :00 Medicin e mirtazapine 2020-0 2020- No 15mg Take 15 mg [facility] (REMERON) 904-15 by mouth Colle ge 15 MG 13:29: 00:00 nightly. of tablet 55 :00 Medicin e mirtazapine 0 Yes 15mg Take 15 mg [facility] (REMERON) 8 by mouth Colleg e 15 MG 14:08: nightly. of tablet 52 Medicin e aspirin 81 0 Yes 81mg Take 81 mg [facility] MG tablet 03-15 by mouth Colleg e 14:08: daily. of 52 Once daily Medicin e Tamsulosin 0 Yes [id number] .4mg Take 0.4 [facility] HCl 0.4 MG 8-27 mg by College CAPS 14:08: mouth. of 52 Medicin e SODIUM 0 Yes [id number] 10mg Take 10 mg [facility] BICARBONATE -27 by mouth 3 Co llege OR 14:08: times of 52 daily. Medicin Takes 3 e tabs by mouth three times a day citalopram 0 Yes [id number] 20mg Take 20 mg [facility] (CELEXA) 20 8-27 by mouth [facility] MG tablet 14:08: daily. of 52 Medicin e amlodipine 0 Yes [id number] 2.5mg Take 2.5 [facility] (NORVASC) 8-27 mg by [place] 2.5 MG 14:08: mouth of tablet 52 daily. Medicin e levofloxaci 0 Yes 250mg Take 250 [facility] n 8-27 mg by [place] (LEVAQUIN) 14:08: mouth. of 500 MG 52 Medicin tablet e atorvastati 0 2020- No 40mg Take 40 mg [facility] n (LIPITOR) 03-14 by mouth Col lege 40 MG 00:00: 00:00 at of tablet 00 :00 bedtime. Medicin e atorvastati 2020- No 40mg Take 40 mg [facility] n (LIPITOR) 03-14 by mouth Col lege 40 MG 00:00: 00:00 at of tablet 00 :00 bedtime. Medicin e mirtazapine Yes 15mg Take 15 mg [facility] (REMERON) 6-23 by mouth Colleg e 15 MG 11:08: nightly. of tablet 51 Medicin e aspirin 81 0 Yes 81mg Take 81 mg [facility] MG tablet 6-23 by mouth Colleg e 11:08: daily. of 51 Once daily Medicin e Tamsulosin Yes [id number] .4mg Take 0.4 [facility] HCl 0.4 MG 6-23 mg by College CAPS 11:08: mouth. of 51 Medicin e SODIUM Yes [id number] 10mg Take 10 mg [facility] BICARBONATE 6-23 by mouth 3 Co llege OR 11:08: times of 51 daily. Medicin Takes 3 e tabs by mouth three times a day citalopram Yes [id number] 20mg Take 20 mg [facility] (CELEXA) 20 6-23 by mouth [facility] MG tablet 11:08: daily. of 51 Medicin e amlodipine Yes [id number] 2.5mg Take 2.5 [facility] (NORVASC) 6-23 mg by College 2.5 MG 11:08: mouth of tablet 51 daily. Medicin e ciclopirox Yes 1{appli Apply 1 [facility] (PENLAC) 8 6-23 cation} applicatio College % solution 00:00: n of 00 topically Medicin nightly. e Apply as directed ciclopirox Yes 1{appli Apply 1 [facility] (PENLAC) 8 6-23 cation} applicatio College % solution 00:00: n of 00 topically Medicin nightly. e Apply as directed ciclopirox Yes 1{appli Apply 1 [facility] (PENLAC) 8 6-23 cation} applicatio College % solution 00:00: n of 00 topically Medicin nightly. e Apply as directed ciclopirox 2021-0 Yes 1{appli Apply 1 [facility] (PENLAC) 8 6-23 cation} applicatio College % solution 00:00: n of 00 topically Medicin nightly. e Apply as directed ciclopirox 2021-0 Yes 1{appli Apply 1 [facility] (PENLAC) 8 6-23 cation} applicatio College % solution 00:00: n of 00 topically Medicin nightly. e Apply as directed ciclopirox 2021-0 Yes 1{appli Apply 1 [facility] (PENLAC) 8 6-23 cation} applicatio College % solution 00:00: n of 00 topically Medicin nightly. e Apply as directed ciclopirox 2021-0 Yes 1{appli Apply 1 [facility] (PENLAC) 8 6-23 cation} applicatio College % solution 00:00: n of 00 topically Medicin nightly. e Apply as directed ciclopirox 2021-0 Yes 1{appli Apply 1 [facility] (PENLAC) 8 6-23 cation} applicatio College % solution 00:00: n of 00 topically Medicin nightly. e Apply as directed tadalafil 2020-0 Yes TAKE ONE [facility] (CIALIS) 10 6-11 (1) College MG tablet 00:00: TABLET(S) of 00 BY MOUTH Medicin DAILY ONE e HOUR BEFORE NEEDED. tadalafil 2020-0 Yes TAKE ONE [facility] (CIALIS) 10 6-11 (1) College MG tablet 00:00: TABLET(S) of 00 BY MOUTH Medicin DAILY ONE e HOUR BEFORE NEEDED. tadalafil 2021-0 Yes TAKE ONE [facility] (CIALIS) 10 6-11 (1) College MG tablet 00:00: TABLET(S) of 00 BY MOUTH Medicin DAILY ONE e HOUR BEFORE NEEDED. tadalafil 1-0 Yes TAKE ONE [facility] (CIALIS) 10 6-11 (1) College MG tablet 00:00: TABLET(S) of 00 BY MOUTH Medicin DAILY ONE e HOUR BEFORE NEEDED. tadalafil 2020-0 Yes TAKE ONE [facility] (CIALIS) 10 6-11 (1) [facility] MG tablet 00:00: TABLET(S) of 00 BY MOUTH Medicin DAILY ONE e HOUR BEFORE NEEDED. tadalafil 2020-0 Yes TAKE ONE [facility] (CIALIS) 10 6-11 (1) College MG tablet 00:00: TABLET(S) of 00 BY MOUTH Medicin DAILY ONE e HOUR BEFORE NEEDED. tadalafil 2020-0 Yes TAKE ONE [facility] (CIALIS) 10 6-11 (1) College MG tablet 00:00: TABLET(S) of 00 BY MOUTH Medicin DAILY ONE e HOUR BEFORE NEEDED. mirtazapine 2020-0 Yes 15mg Take 15 mg [facility] (REMERON) 6-04 by mouth Colleg e 15 MG 15:10: nightly. of tablet 57 Medicin e aspirin 81 2020-0 Yes 81mg Take 81 mg [facility] MG tablet 6-04 by mouth Colleg e 15:10: daily. of 57 Once daily Medicin e Tamsulosin 2020-0 Yes [id number] .4mg Take 0.4 [facility] HCl 0.4 MG 6-04 mg by [place] CAPS 15:10: mouth. of 57 Medicin e SODIUM 2020-0 Yes [id number] 10mg Take 10 mg [facility] BICARBONATE 6-04 by mouth 3 Co llege OR 15:10: times of 57 daily. Medicin Takes 3 e tabs by mouth three times a day citalopram 2020-0 Yes [id number] 20mg Take 20 mg [facility] (CELEXA) 20 6-04 by mouth [facility] MG tablet 15:10: daily. of 57 Medicin e amlodipine 2020-0 Yes [id number] 2.5mg Take 2.5 [facility] (NORVASC) 6-04 mg by College 2.5 MG 15:10: mouth of tablet 57 daily. Medicin e mirtazapine 2020-0 Yes 15mg Take 15 mg [facility] (REMERON) 4-19 by mouth Colleg e 15 MG 20:40: nightly. of tablet 39 Medicin e aspirin 81 2020-0 Yes 81mg Take 81 mg [facility] MG tablet 4-19 by mouth Colleg e 20:40: daily. of 39 Once daily Medicin e Tamsulosin 2020-0 Yes [id number] .4mg Take 0.4 [facility] HCl 0.4 MG 4-19 mg by College CAPS 20:40: mouth. of 39 Medicin e SODIUM 0 Yes [id number] 10mg Take 10 mg [facility] BICARBONATE 4-19 by mouth 3 Co llege OR 20:40: times of 39 daily. Medicin Takes 3 e tabs by mouth three times a day citalopram 2020-0 Yes [id number] 20mg Take 20 mg [facility] (CELEXA) 20 4-19 by mouth [facility] MG tablet 20:40: daily. of 39 Medicin e amlodipine 0 Yes [id number] 2.5mg Take 2.5 [facility] (NORVASC) 4-19 mg by College 2.5 MG 20:40: mouth of tablet 39 daily. Medicin e mirtazapine Yes 15mg Take 15 mg [facility] (REMERON) 4-19 by mouth Colleg e 15 MG 20:40: nightly. of tablet 39 Medicin e aspirin 81 Yes 81mg Take 81 mg [facility] MG tablet 4-19 by mouth Colleg e 20:40: daily. of 39 Once daily Medicin e Tamsulosin Yes [id number] .4mg Take 0.4 [facility] HCl 0.4 MG 4-19 mg by [place] CAPS 20:40: mouth. of 39 Medicin e SODIUM Yes [id number] 10mg Take 10 mg [facility] BICARBONATE 4-19 by mouth 3 Co llege OR 20:40: times of 39 daily. Medicin Takes 3 e tabs by mouth three times a day citalopram Yes [id number] 20mg Take 20 mg [facility] (CELEXA) 20 4-19 by mouth [facility] MG tablet 20:40: daily. of 39 Medicin e amlodipine Yes [id number] 2.5mg Take 2.5 [facility] (NORVASC) 4-19 mg by [place] 2.5 MG 20:40: mouth of tablet 39 daily. Medicin e ciclopirox Yes 1{appli Apply 1 [facility] (PENLAC) 8 4-19 cation} applicatio [place] % solution 00:00: n of 00 topically Medicin nightly. e Apply as directed gabapentin Yes 300mg Take 1 [facility] (NEURONTIN) 4-19 capsule by Co llege 300 MG 00:00: mouth 3 of capsule 00 times Medicin daily. e ciclopirox 2021-0 Yes 1{appli Apply 1 [facility] (PENLAC) 8 11-05 cation} applicatio College % solution 00:00: n of 00 topically Medicin nightly. e Apply as directed gabapentin 2021-0 Yes 300mg Take 1 [facility] (NEURONTIN) 4-19 capsule by Co llege 300 MG 00:00: mouth 3 of capsule 00 times Medicin daily. e gabapentin 2021-0 Yes 300mg Take 1 [facility] (NEURONTIN) 4-19 capsule by Co llege 300 MG 00:00: mouth 3 of capsule 00 times Medicin daily. e gabapentin 2021-0 Yes 300mg Take 1 [facility] (NEURONTIN) 4-19 capsule by Co llege 300 MG 00:00: mouth 3 of capsule 00 times Medicin daily. e gabapentin 2021-0 Yes 300mg Take 1 [facility] (NEURONTIN) 4-19 capsule by Co llege 300 MG 00:00: mouth 3 of capsule 00 times Medicin daily. e gabapentin 2021-0 Yes 300mg Take 1 [facility] (NEURONTIN) 4-19 capsule by Co llege 300 MG 00:00: mouth 3 of capsule 00 times Medicin daily. e gabapentin 2021-0 Yes 300mg Take 1 [facility] (NEURONTIN) 4-19 capsule by Co llege 300 MG 00:00: mouth 3 of capsule 00 times Medicin daily. e gabapentin 2021-0 Yes 300mg Take 1 [facility] (NEURONTIN) 4-19 capsule by Co llege 300 MG 00:00: mouth 3 of capsule 00 times Medicin daily. e gabapentin 2021-0 Yes 300mg Take 1 [facility] (NEURONTIN) 4-19 capsule by Co llege 300 MG 00:00: mouth 3 of capsule 00 times Medicin daily. e gabapentin 2021-0 Yes 300mg Take 1 [facility] (NEURONTIN) 4-19 capsule by Co llege 300 MG 00:00: mouth 3 of capsule 00 times Medicin daily. e ciclopirox 2021-0 2021- No 1{appli Apply 1 [facility] (PENLAC) 8 4-19 06-23 cation} applicatio [facility] % solution 00:00: 00:00 n of 00 :00 topically Medicin nightly. e Apply as directed mupirocin 2020-0 Yes Apply to [facility] (BACTROBAN) 3-10 wound left [facility] 2 % 00:00: heel daily of ointment 00 Medicin e ciclopirox 2020-0 Yes 1{appli Apply 1 [facility] (PENLAC) 8 3-10 cation} applicatio [facility] % solution 00:00: n of 00 topically Medicin nightly. e Apply as directed Diclofenac 2020-0 Yes 1{appli Apply 1 [facility] Sodium 1 % 3-10 cation} applicatio [facility] GEL 00:00: n of 00 topically Medicin 3 times e daily. mupirocin 2020-0 Yes Apply to [facility] (BACTROBAN) 3-10 wound left [facility] 2 % 00:00: heel daily of ointment 00 Medicin e Diclofenac 2020-0 Yes 1{appli Apply 1 [facility] Sodium 1 % 3-10 cation} applicatio [facility] GEL 00:00: n of 00 topically Medicin 3 times e daily. mupirocin 2020-0 Yes Apply to [facility] (BACTROBAN) 3-10 wound left [facility] 2 % 00:00: heel daily of ointment 00 Medicin e Diclofenac 2020-0 Yes 1{appli Apply 1 [facility] Sodium 1 % 3-10 cation} applicatio [facility] GEL 00:00: n of 00 topically Medicin 3 times e daily. mupirocin 2020-0 Yes Apply to [facility] (BACTROBAN) 3-10 wound left [facility] 2 % 00:00: heel daily of ointment 00 Medicin e Diclofenac 2020-0 Yes 1{appli Apply 1 [facility] Sodium 1 % 3-10 cation} applicatio [employer] GEL 00:00: n of 00 topically Medicin 3 times e daily. mupirocin 2020-0 Yes Apply to [facility] (BACTROBAN) 3-10 wound left [facility] 2 % 00:00: heel daily of ointment 00 Medicin e Diclofenac 2020-0 Yes 1{appli Apply 1 [facility] Sodium 1 % 3-10 cation} applicatio [facility] GEL 00:00: n of 00 topically Medicin 3 times e daily. mupirocin 2020-0 Yes Apply to [facility] (BACTROBAN) 3-10 wound left [facility] 2 % 00:00: heel daily of ointment 00 Medicin e Diclofenac 1-0 Yes 1{appli Apply 1 [facility] Sodium 1 % 3-10 cation} applicatio [facility] GEL 00:00: n of 00 topically Medicin 3 times e daily. mupirocin 2020-0 Yes Apply to [facility] (BACTROBAN) 3-10 wound left [facility] 2 % 00:00: heel daily of ointment 00 Medicin e Diclofenac 2020-0 Yes 1{appli Apply 1 [facility] Sodium 1 % 3-10 cation} applicatio [facility] GEL 00:00: n of 00 topically Medicin 3 times e daily. mupirocin 2020-0 Yes Apply to [facility] (BACTROBAN) 3-10 wound left [facility] 2 % 00:00: heel daily of ointment 00 Medicin e Diclofenac 2020-0 Yes 1{appli Apply 1 [facility] Sodium 1 % 3-10 cation} applicatio [facility] GEL 00:00: n of 00 topically Medicin 3 times e daily. mupirocin 2020-0 Yes Apply to [facility] (BACTROBAN) 3-10 wound left [facility] 2 % 00:00: heel daily of ointment 00 Medicin e Diclofenac 2020-0 Yes 1{appli Apply 1 [facility] Sodium 1 % 3-10 cation} applicatio [facility] GEL 00:00: n of 00 topically Medicin 3 times e daily. mupirocin 2020-0 Yes Apply to [facility] (BACTROBAN) 3-10 wound left [facility] 2 % 00:00: heel daily of ointment 00 Medicin e Diclofenac 2020-0 Yes 1{appli Apply 1 [facility] Sodium 1 % 3-10 cation} applicatio [facility] GEL 00:00: n of 00 topically Medicin 3 times e daily. mupirocin 2020-0 Yes Apply to [facility] (BACTROBAN) 3-10 wound left [facility] 2 % 00:00: heel daily of ointment 00 Medicin e Diclofenac Yes 1{appli Apply 1 [facility] Sodium 1 % 3-10 cation} applicatio [facility] GEL 00:00: n of 00 topically Medicin 3 times e daily. mupirocin Yes Apply to [facility] (BACTROBAN) 3-10 wound left [facility] 2 % 00:00: heel daily of ointment 00 Medicin e Diclofenac Yes 1{appli Apply 1 [facility] Sodium 1 % 3-10 cation} applicatio [facility] GEL 00:00: n of 00 topically Medicin 3 times e daily. ciclopirox 2020- No 1{appli Apply 1 [facility] (PENLAC) 8 3-10 04-19 cation} applicatio [employer] % solution 00:00: 00:00 n of 00 :00 topically Medicin nightly. e Apply as directed ciclopirox 2020- No 1{appli Apply 1 [facility] (PENLAC) 8 3-10 04-19 cation} applicatio [facility] % solution 00:00: 00:00 n of 00 :00 topically Medicin nightly. e Apply as directed mirtazapine Yes 15mg Take 15 mg [facility] (REMERON) 3-09 by mouth Colleg e 15 MG 15:19: nightly. of tablet 50 Medicin e aspirin 81 Yes 81mg Take 81 mg [facility] MG tablet 3-09 by mouth [facility] e 15:19: daily. of 50 Once daily Medicin e Tamsulosin Yes [id number] .4mg Take 0.4 [facility] HCl 0.4 MG 3-09 mg by College CAPS 15:19: mouth. of 50 Medicin e SODIUM Yes [id number] 10mg Take 10 mg [facility] BICARBONATE 3-09 by mouth 3 Co llege OR 15:19: times of 50 daily. Medicin Takes 3 e tabs by mouth three times a day citalopram Yes [id number] 20mg Take 20 mg [facility] (CELEXA) 20 3-09 by mouth [facility] MG tablet 15:19: daily. of 50 Medicin e amlodipine Yes [id number] 2.5mg Take 2.5 [facility] (NORVASC) 3-09 mg by [facility] 2.5 MG 15:19: mouth of tablet 50 daily. Medicin e mirtazapine Yes 15mg Take 15 mg [facility] (REMERON) 3-09 by mouth [facility] 15 MG 15:19: nightly. of tablet 50 Medicin e aspirin 81 2020-0 Yes 81mg Take 81 mg [facility] MG tablet 3-09 by mouth [facility] e 15:19: daily. of 50 Once daily Medicin e Tamsulosin Yes [id number] .4mg Take 0.4 [facility] HCl 0.4 MG 3-09 mg by [facility] CAPS 15:19: mouth. of 50 Medicin e SODIUM Yes [id number] 10mg Take 10 mg [facility] BICARBONATE 3-09 by mouth 3 [facility] llege OR 15:19: times of 50 daily. Medicin Takes 3 e tabs by mouth three times a day citalopram Yes [id number] 20mg Take 20 mg [facility] (CELEXA) 20 3-09 by mouth [facility] MG tablet 15:19: daily. of 50 Medicin e amlodipine Yes [id number] 2.5mg Take 2.5 [facility] (NORVASC) 3-09 mg by [place] 2.5 MG 15:19: mouth of tablet 50 daily. Medicin e mirtazapine Yes 15mg Take 15 mg [facility] (REMERON) 3-08 by mouth Colleg e 15 MG 16:04: nightly. of tablet 01 Medicin e aspirin 81 Yes 81mg Take 81 mg [facility] MG tablet 3-08 by mouth [facility] e 16:04: daily. of 01 Once daily Medicin e Tamsulosin Yes [id number] .4mg Take 0.4 [facility] HCl 0.4 MG 3-08 mg by [facility] CAPS 16:04: mouth. of 01 Medicin e SODIUM 2020- Yes [id number] 10mg Take 10 mg [facility] BICARBONATE 3-08 by mouth 3 [facility]lege OR 16:04: times of 01 daily. Medicin Takes 3 e tabs by mouth three times a day citalopram 2020- Yes [id number] 20mg Take 20 mg [facility] (CELEXA) 20 3-08 by mouth [facility] MG tablet 16:04: daily. of Medicin e amlodipine 2020-0 Yes [id number] 2.5mg Take 2.5 [facility] (NORVASC) 3-08 mg by [facility] 2.5 MG 16:04: mouth of tablet 01 daily. Medicin e Melatonin 3 2019-07 Yes AT BEDTIME [facility] MG TABS 2- College 00:00: of 00 Medicin e metoprolol 2019- Yes TWICE [facility] (LOPRESSOR) 2- DAILY 0600 Co llege 25 MG 00:00: AND 1800 of tablet 00 Medicin e Melatonin 3 2019- Yes AT BEDTIME [facility] MG TABS 2- College 00:00: of 00 Medicin e metoprolol 2019- Yes TWICE [facility] (LOPRESSOR) 2- DAILY 0600 [facility] 25 MG 00:00: AND 1800 of tablet 00 Medicin e Melatonin 3 2019- Yes AT BEDTIME [facility] MG TABS 2- College 00:00: of 00 Medicin e metoprolol 2019- Yes TWICE [facility] (LOPRESSOR) 2-31 DAILY 0600 [facility] 25 MG 00:00: AND 1800 of tablet 00 Medicin e Melatonin 3 2019- Yes AT BEDTIME [facility] MG TABS 2- College 00:00: of 00 Medicin e metoprolol 2019- Yes TWICE [facility] (LOPRESSOR) 2-31 DAILY 0600 [facility] 25 MG 00:00: AND 1800 of tablet 00 Medicin e Melatonin 3 2019- Yes AT BEDTIME [facility] MG TABS 2- College 00:00: of 00 Medicin e metoprolol 2019- Yes TWICE [facility] (LOPRESSOR) 2-31 DAILY 0600 [facility] 25 MG 00:00: AND 1800 of tablet 00 Medicin e Melatonin 3 2019- Yes AT BEDTIME [facility] MG TABS 2- College 00:00: of 00 Medicin e metoprolol 2019- Yes TWICE [facility] (LOPRESSOR) 2-31 DAILY 0600 [facility] 25 MG 00:00: AND 1800 of tablet 00 Medicin e Melatonin 3 2019- Yes AT BEDTIME [facility] MG TABS 2- College 00:00: of 00 Medicin e metoprolol 2019-1 Yes TWICE [facility] (LOPRESSOR) 2-31 DAILY 0600 [facility] 25 MG 00:00: AND 1800 of tablet 00 Medicin e Apixaban 5 2019- Yes TWICE [facility] MG TABS 1-08 DAILY College 00:00: of 00 Medicin e Apixaban 5 2019- Yes TWICE [facility] MG TABS 1-08 DAILY College 00:00: of 00 Medicin e Apixaban 5 2019- Yes TWICE [facility] MG TABS 1-08 DAILY College 00:00: of 00 Medicin e Apixaban 5 2019- Yes TWICE [facility] MG TABS 1-08 DAILY College 00:00: of 00 Medicin e Apixaban 5 2019- Yes TWICE [facility] MG TABS 1-08 DAILY College 00:00: of 00 Medicin e Apixaban 5 2018- Yes TWICE [facility] MG TABS 1-08 DAILY College 00:00: of 00 Medicin e Apixaban 5 2018- Yes TWICE [facility] MG TABS 1-08 DAILY College 00:00: of 00 Medicin e Loratadine 2019- Yes DAILY [facility] 10 MG CAPS 1-07 College 00:00: of 00 Medicin e Loratadine 2019- Yes DAILY [facility] 10 MG CAPS 1-07 College 00:00: of 00 Medicin e Loratadine 2019- Yes DAILY [facility] 10 MG CAPS 1-07 College 00:00: of 00 Medicin e Loratadine 2019-1 Yes DAILY [facility] 10 MG CAPS 1-07 College 00:00: of 00 Medicin e Loratadine 2019-1 Yes DAILY [facility] 10 MG CAPS 1-07 College 00:00: of 00 Medicin e Loratadine 2019-1 Yes DAILY [facility] 10 MG CAPS 1-07 College 00:00: of 00 Medicin e Loratadine 2019-1 Yes DAILY [facility] 10 MG CAPS 1-07 College 00:00: of 00 Medicin e gabapentin 2019-0 Yes 300mg Take 1 Cap [facility] (NEURONTIN) 5-13 by mouth 3 Co llege 300 MG 00:00: times of capsule 00 daily. Medicin e gabapentin 2019-0 Yes 300mg Take 1 Cap [facility] (NEURONTIN) 5-13 by mouth 3 Co llege 300 MG 00:00: times of capsule 00 daily. Medicin e gabapentin 2019-0 Yes 300mg Take 1 Cap [facility] (NEURONTIN) 5-13 by mouth 3 [facility] 300 MG 00:00: times of capsule 00 daily. Medicin e gabapentin Yes 300mg Take 1 Cap [facility] (NEURONTIN) 5-13 by mouth 3 Co [facility]lege 300 MG 00:00: times of capsule 00 daily. Medicin e gabapentin 2020- No 300mg Take 1 Cap [facility] (NEURONTIN) 5-13 -19 by mouth 3 [facility] 300 MG 00:00: 00:00 times of capsule 00 :00 daily. Medicin e gabapentin 2020- No 300mg Take 1 Cap [facility] (NEURONTIN) 5-13 -19 by mouth 3 C [facility] 300 MG 00:00: 00:00 times of capsule 00 :00 daily. Medicin e mirtazapine Yes 15mg Take 15 mg [facility] (REMERON) 2-12 by mouth Colleg e 15 MG 18:03: nightly. of tablet Medicin e aspirin 81 Yes 81mg Take 81 mg [facility] MG tablet 2-12 by mouth Colleg e 18:03: daily. of Once daily Medicin e Tamsulosin Yes [id number] .4mg Take 0.4 [facility] HCl 0.4 MG 2-12 mg by [place] CAPS 18:03: mouth. of Medicin e SODIUM Yes [id number] 10mg Take 10 mg [facility] BICARBONATE 2-12 by mouth 3 Co llege OR 18:03: times of 03 daily. Medicin Takes 3 e tabs by mouth three times a day citalopram Yes [id number] 20mg Take 20 mg [facility] (CELEXA) 20 2-12 by mouth [facility] MG tablet 18:03: daily. of Medicin e amlodipine Yes [id number] 2.5mg Take 2.5 [facility] (NORVASC) 2-12 mg by [place] 2.5 MG 18:03: mouth of tablet 03 daily. Medicin e mirtazapine Yes 15mg QD Take [address] [facility] (REMERON) 9-25 by [facility] 15 MG 11:49: nightly. Medical tablet 05 Center SODIUM Yes [id number] Take [facility] BICARBONATE 9-25 [id number] mouth 3 [facility] ORAL 11:49: 3D (three) Medical 05 times Center daily. acetaminoph 2018-0 Yes 500mg Take [address] en 9-25 mg by [facility] (TYLENOL) 11:49: mouth Medical 500 MG 05 every 6 Center tablet (six) hours as needed for Pain. aspirin 81 2018-0 Yes 81mg QD Take [address] MG EC 9-25 by mouth [facility] tablet 11:49: daily. Medical [address] [place] [address] tamsulosin 2018-0 Yes .4mg QD Take 0.[address] [facility] (FLOMAX) 9-25 mg by [facility] 0.4 mg Cp24 11:49: mouth Medic al 24 hr 05 daily. [place] capsule citalopram 2017-0 Yes 20mg QD Take [address] (CELEXA) 20 9-25 by mouth [facility] MG tablet 11:49: daily. Medica l [address] [place] [address] gabapentin 2018-0 Yes 300mg QD Take [address] (NEURONTIN) 9-25 mg by [facility] 300 MG 11:49: mouth Medical capsule 05 daily. [place] cilostazol 2017-0 Yes 50mg Q.5D Take [address] (PLETAL) 50 9-25 by mouth 2 [facility] MG tablet 11:49: (two) Medical 05 times Center daily. mirtazapine 2018-0 Yes 15mg QD Take [address] [facility] (REMERON) 9-25 by mouth [facility] 15 MG 11:49: nightly. Medical tablet 05 [place] SODIUM 2018-0 Yes Q.[id number] Take by [facility] BICARBONATE 9-25 [id number] mouth 3 [facility] ORAL 11:49: 3D (three) Medical 05 times Center daily. acetaminoph 2018-0 Yes 500mg Take [address] en 9-25 mg by [facility] (TYLENOL) 11:49: mouth Medical 500 MG 05 every 6 Center tablet (six) hours as needed for Pain. aspirin 81 2018-0 Yes 81mg QD Take [address] MG EC 9-25 by mouth [facility] tablet 11:49: daily. Medical [address] [place] [address] tamsulosin 2018-0 Yes .4mg QD Take 0.[address] [facility] (FLOMAX) 9-25 mg by [facility] 0.4 mg Cp24 11:49: mouth Medic al 24 hr 05 daily. [place] capsule citalopram 2018-0 Yes 20mg QD Take [address] (CELEXA) 20 9-25 by mouth [facility] MG tablet 11:49: daily. Medica l 05 [place] gabapentin 2018-0 Yes 300mg QD Take [address] (NEURONTIN) 9-25 mg by [facility] 300 MG 11:49: mouth Medical capsule 05 daily. [place] cilostazol 2018-0 Yes 50mg Q.5D Take [address] (PLETAL) 50 9-25 by mouth 2 [facility] MG tablet 11:49: (two) Medical 05 times Center daily. mirtazapine 2018-0 Yes 15mg QD Take [address] [facility] (REMERON) 9-25 by mouth [facility] 15 MG 11:49: nightly. Medical tablet 05 [place] SODIUM 2018-0 Yes [id number] Take by [facility] BICARBONATE 9-25 [id number] mouth 3 [facility] ORAL 11:49: 3D (three) Medical 05 times Center daily. acetaminoph 2018-0 Yes 500mg Take [address] en 9-25 mg by [facility] (TYLENOL) 11:49: mouth Medical 500 MG 05 every 6 [facility] tablet (six) hours as needed for Pain. aspirin 81 2018-0 Yes 81mg QD Take [address] MG EC 9-25 by mouth [facility] tablet 11:49: daily. [address] tamsulosin 2018-0 Yes .4mg QD Take 0.[address] [facility] (FLOMAX) 9-25 mg by [facility] 0.4 mg Cp24 11:49: mouth Medic al 24 hr 05 daily. [place] capsule citalopram 2018-0 Yes 20mg QD Take [address] (CELEXA) 20 9-25 by mouth [facility] MG tablet 11:49: daily. Medica l 05 [place] gabapentin 2018-0 Yes 300mg QD Take [address] (NEURONTIN) 9-25 mg by [facility] 300 MG 11:49: mouth Medical capsule 05 daily. [place] cilostazol 2018-0 Yes 50mg Q.5D Take [address] (PLETAL) 50 9-25 by mouth 2 [facility] MG tablet 11:49: (two) Medical 05 times Center daily. clopidogrel 2018-0 Yes 75mg QD Take [address] [facility] (PLAVIX) 75 9-24 by mouth [facility] mg tablet 15:49: daily. Medica l [address] [place] clopidogrel 2018-0 Yes 75mg QD Take [address] [facility] (PLAVIX) 75 9-24 by mouth [facility] mg tablet 15:49: daily. [address] clopidogrel 2018-0 Yes 75mg QD Take [address] [facility] (PLAVIX) 75 9-24 by mouth [facility] mg tablet 15:49: daily. [address] amLODIPine 2018-0 Yes 2.5mg QD Take 2.[address] (NORVASC) 9-24 mg by [facility] 2.5 MG 14:34: mouth Medical tablet 41 daily. [place] citalopram 2018-0 Yes 20mg QD Take [address] (CELEXA) 20 9-24 by mouth [facility] MG tablet 14:34: daily. [address] aspirin 81 2018-0 Yes 81mg QD Take [address] MG EC 9-24 by mouth [facility] tablet 14:34: daily. [address] cilostazol 2018-0 Yes 50mg Q.5D Take [address] (PLETAL) 50 9-24 by mouth 2 [facility] MG tablet 14:34: (two) Medical 41 times Center daily. sodium 2018-0 Yes 1{tbl} Q.[id number] Take [address] bicarbonate 9-24 [id number] tablet by [facility] 650 MG 14:34: 3D mouth 3 Medical tablet 41 (three) Center times daily. amLODIPine 2018-0 Yes 2.5mg QD Take 2.[address] (NORVASC) 9-24 mg by [facility] 2.5 MG 14:34: mouth Medical tablet 41 daily. [place] citalopram 2018-0 Yes 20mg QD Take [address] (CELEXA) 20 9-24 by mouth [facility] MG tablet 14:34: daily. [address] aspirin 81 2018-0 Yes 81mg QD Take [address] MG EC 9-24 by mouth [facility] tablet 14:34: daily. [address] cilostazol 2018-0 Yes 50mg Q.5D Take [address] (PLETAL) 50 9-24 by mouth 2 [facility] MG tablet 14:34: (two) Medical 41 times Center daily. sodium 2018-0 Yes 1{tbl} Q.[id number] Take [address] bicarbonate 9-24 [id number] tablet by [facility] 650 MG 14:34: 3D mouth 3 Medical tablet 41 (three) Center times daily. amLODIPine 2018-0 Yes 2.5mg QD Take 2.[address] (NORVASC) 9-24 mg by [facility] 2.5 MG 14:34: mouth Medical tablet 41 daily. [place] citalopram 2018-0 Yes 20mg QD Take [address] (CELEXA) 20 9-24 by mouth [facility] MG tablet 14:34: daily. Medica l 41 [place] aspirin 81 2018-0 Yes 81mg QD Take [address] MG EC 9-24 by mouth [facility] tablet 14:34: daily. Medical [address] [place] cilostazol 2018-0 Yes 50mg Q.5D Take [address] (PLETAL) 50 9-24 by mouth 2 [facility] MG tablet 14:34: (two) Medical 41 times Center daily. sodium 2018-0 Yes 1{tbl} Q.[id number] Take [address] bicarbonate 9-24 [id number] tablet by [facility] 650 MG 14:34: 3D mouth 3 Medical tablet 41 (three) Center times daily. gabapentin 2018-0 Yes Q.5D 2 (two) [facility] (NEURONTIN) 9-02 times [facility] 300 MG 00:00: daily. Medical capsule 00 [place] gabapentin 2018-0 Yes Q.5D 2 (two) [facility] (NEURONTIN) 9-02 times [facility] 300 MG 00:00: daily. Medical capsule 00 [place] gabapentin 2018-0 Yes Q.5D 2 (two) [facility] (NEURONTIN) 9-02 times [facility] 300 MG 00:00: daily. Medical capsule 00 [place] cilostazol 2018-0 Yes 50mg Take 1 Tab [facility] (PLETAL) 50 3-26 by mouth [facility] MG tablet 00:00: two times of 00 daily. Medicin e Naftifine 2018-0 Yes 20mg Apply 20 [facility] HCl 2 % 3-26 mg [facility] CREA 00:00: topically of 00 3 times Medicin daily. e cilostazol 2018-0 Yes 50mg Take 1 Tab [facility] (PLETAL) 50 3-26 by mouth [facility] MG tablet 00:00: two times of 00 daily. Medicin e Naftifine 2018-0 Yes 20mg Apply 20 [facility] HCl 2 % 3-26 mg [facility] CREA 00:00: topically of 00 3 times Medicin daily. e cilostazol 2018-0 Yes 50mg Take 1 Tab [facility] (PLETAL) 50 3-26 by mouth [facility] MG tablet 00:00: two times of 00 daily. Medicin e Naftifine 2018-0 Yes 20mg Apply 20 [facility] HCl 2 % 3-26 mg [facility] CREA 00:00: topically of 00 3 times Medicin daily. e cilostazol 2018-0 Yes 50mg Take 1 Tab [facility] (PLETAL) 50 3-26 by mouth [facility] MG tablet 00:00: two times of 00 daily. Medicin e Naftifine 2018-0 Yes 20mg Apply 20 [facility] HCl 2 % 3-26 mg [facility] CREA 00:00: topically of 00 3 times Medicin daily. e cilostazol 2018-0 Yes 50mg Take 1 Tab [facility] (PLETAL) 50 3-26 by mouth [facility] MG tablet 00:00: two times of 00 daily. Medicin e Naftifine 2018-0 Yes 20mg Apply 20 [facility] HCl 2 % 3-26 mg [facility] CREA 00:00: topically of 00 3 times Medicin daily. e cilostazol 2018-0 Yes 50mg Take 1 Tab [facility] (PLETAL) 50 3-26 by mouth [facility] MG tablet 00:00: two times of 00 daily. Medicin e Naftifine 2018-0 Yes 20mg Apply 20 [facility] HCl 2 % 3-26 mg [facility] CREA 00:00: topically of 00 3 times Medicin daily. e cilostazol 2018-0 Yes 50mg Take 1 Tab [facility] (PLETAL) 50 3-26 by mouth [facility] MG tablet 00:00: two times of 00 daily. Medicin e Naftifine 2018-0 Yes 20mg Apply 20 [facility] HCl 2 % 3-26 mg [facility] CREA 00:00: topically of 00 3 times Medicin daily. e cilostazol 2018-0 Yes 50mg Take 1 Tab [facility] (PLETAL) 50 3-26 by mouth [facility] MG tablet 00:00: two times of 00 daily. Medicin e Naftifine 2018-0 Yes 20mg Apply 20 [facility] HCl 2 % 3-26 mg [facility] CREA 00:00: topically of 00 3 times Medicin daily. e cilostazol 2018-0 Yes 50mg Take 1 Tab [facility] (PLETAL) 50 3-26 by mouth [facility] MG tablet 00:00: two times of 00 daily. Medicin e Naftifine 2018-0 Yes 20mg Apply 20 [facility] HCl 2 % 3-26 mg [facility] CREA 00:00: topically of 00 3 times Medicin daily. e cilostazol 2018-0 Yes 50mg Take 1 Tab [facility] (PLETAL) 50 3-26 by mouth [facility] MG tablet 00:00: two times of 00 daily. Medicin e Naftifine 2018-0 Yes 20mg Apply 20 [facility] HCl 2 % 3-26 mg [facility] CREA 00:00: topically of 00 3 times Medicin daily. e cilostazol 2018-0 Yes 50mg Take 1 Tab [facility] (PLETAL) 50 3-26 by mouth [facility] MG tablet 00:00: two times of 00 daily. Medicin e Naftifine 2018-0 Yes 20mg Apply 20 [facility] HCl 2 % 3-26 mg [facility] CREA 00:00: topically of 00 3 times Medicin daily. e cilostazol 2018-0 Yes 50mg Take 1 Tab [facility] (PLETAL) 50 3-26 by mouth [facility] MG tablet 00:00: two times of 00 daily. Medicin e Naftifine 2018-0 Yes 20mg Apply 20 [facility] HCl 2 % 3-26 mg [facility] CREA 00:00: topically of 00 3 times Medicin daily. e cilostazol 2018-0 Yes 50mg Take 1 Tab [facility] (PLETAL) 50 3-26 by mouth [facility] MG tablet 00:00: two times of 00 daily. Medicin e Naftifine 2018-0 Yes 20mg Apply 20 [facility] HCl 2 % 3-26 mg [facility] CREA 00:00: topically of 00 3 times Medicin daily. e cilostazol 2018-0 Yes 50mg Take 1 Tab [facility] (PLETAL) 50 3-26 by mouth [facility] MG tablet 00:00: two times of 00 daily. Medicin e Naftifine 2018-0 Yes 20mg Apply 20 [facility] HCl 2 % 3-26 mg [facility] CREA 00:00: topically of 00 3 times Medicin daily. e cilostazol 2017-0 Yes 50mg Take 1 Tab [facility] (PLETAL) 50 3-26 by mouth [facility] MG tablet 00:00: two times of 00 daily. Medicin e Naftifine 2017-0 Yes 20mg Apply 20 [facility] HCl 2 % 3-26 mg [facility] CREA 00:00: topically of 00 3 times Medicin daily. e amLODIPine 2017-0 Yes 2.5mg QD Take [address] [facility] (NORVASC) 3-17 tablet [facility] 2.5 MG 00:00: (2.5 mg Medical tablet 00 total) by Center mouth daily. amLODIPine 2018-0 Yes 2.5mg QD Take [address] [facility] (NORVASC) 3-17 tablet [facility] 2.5 MG 00:00: (2.5 mg Medical tablet 00 total) by Center mouth daily. amLODIPine 2018-0 Yes 2.5mg QD Take [address] [facility] (NORVASC) 3-17 tablet [facility] 2.5 MG 00:00: (2.5 mg Medical tablet 00 total) by Center mouth daily. mupirocin 2017-0 Yes [facility] (BACTROBAN) 16 [place] 2 % 00:00: of ointment 00 Medicin e mupirocin 2017-0 Yes [facility] (BACTROBAN) [place] 2 % 00:00: of ointment 00 Medicin e mupirocin 2017-0 Yes [facility] (BACTROBAN) [place] 2 % 00:00: of ointment 00 Medicin e mupirocin 2017-0 Yes [facility] (BACTROBAN) [place] 2 % 00:00: of ointment 00 Medicin e mupirocin 2017-0 Yes [facility] (BACTROBAN) 16 [place] 2 % 00:00: of ointment 00 Medicin e mupirocin 2017-0 Yes [facility] (BACTROBAN) 16 [place] 2 % 00:00: of ointment 00 Medicin e mupirocin 2017-0 Yes [facility] (BACTROBAN) [place] 2 % 00:00: of ointment 00 Medicin e mupirocin 2017-0 Yes [facility] (BACTROBAN) [place] 2 % 00:00: of ointment 00 Medicin e mupirocin 2017-0 Yes [facility] (BACTROBAN) 02-01 [place] 2 % 00:00: of ointment 00 Medicin e mupirocin 2017-0 Yes [facility] (BACTROBAN) 02-01 [place] 2 % 00:00: of ointment 00 Medicin e mupirocin 2017-0 Yes [facility] (BACTROBAN) 02-01 [place] 2 % 00:00: of ointment 00 Medicin e mupirocin 2017-0 Yes [facility] (BACTROBAN) 02-01 [place] 2 % 00:00: of ointment 00 Medicin e mupirocin 2017-0 Yes [facility] (BACTROBAN) 02-01 [place] 2 % 00:00: of ointment 00 Medicin e mupirocin 2017-0 Yes [facility] (BACTROBAN) 02-01 [place] 2 % 00:00: of ointment 00 Medicin e mupirocin 2017-0 Yes [facility] (BACTROBAN) 02-01 [place] 2 % 00:00: of ointment 00 Medicin e levoFLOXaci 2017- Yes 250mg Take 250 M ethodi n 1-[address] (LEVAQUIN) 11:08: mouth. Hospi ta 500 MG 31 l tablet tamsulosin 2017 Yes .4mg Take 0.4 [facility] (FLOMAX[facility] 1-[address] 0.4 mg 11:08: mouth. [facility]osp[facility] capsule,ext 31 l ended release 24hr levoFLOXaci 2017 Yes 250mg Take 250 M ethodi n 1-[address] (LEVAQUIN) 11:08: mouth. Hospi ta 500 MG 31 l tablet tamsulosin 2017 Yes .4mg Take 0.4 [facility] (FLOMAX) 1-[address] 0.4 mg 11:08: mouth. [facility]osp[facility] capsule,ext 31 l ended release 24hr levoFLOXaci 2017-0 Yes 250mg Take 250 M ethodi n 1-[address] (LEVAQUIN) 11:08: mouth. Hospi ta 500 MG 31 l tablet tamsulosin Yes .4mg Take 0.4 [facility] (FLOMAX) 1-[address] 0.4 mg 11:08: mouth. [facility]ospita capsule,ext 31 l ended release 24hr fludrocorti 2015-07 Yes [facility] tablet 00:00: Hospita 00 l fludrocorti 2015-07 Yes [facility] tablet 00:00: Hospita 00 l fludrocorti 2015-07 Yes [facility] mg [facility]-[address] [facility] tablet 00:00: Hospita 00 l mirtazapine 2015-07 Yes Method i (REMERON) 1-11 st 15 MG 00:00: Hospita tablet 00 l mirtazapine 2015-07 Yes Method i (REMERON) 1-11 st 15 MG 00:00: Hospita tablet 00 l mirtazapine 2015-07 Yes Method i (REMERON) 1-11 st 15 MG 00:00: Hospita tablet 00 l amLODIPine 2015-07 Yes [facility] (NORVASC) 1-05 st 2.5 mg 00:00: Hospita tablet 00 l amLODIPine 2015-07 Yes [facility] (NORVASC) 1-05 st 2.5 mg 00:00: Hospita tablet 00 l amLODIPine 2015-07 Yes [facility] (NORVASC) 1-05 st 2.5 mg 00:00: Hospita tablet 00 l sodium 2015-07 Yes 15g Take 60 mL [facility] 1-04 by mouth [facility] (KAYEXALATE 00:00: daily. On o f ) Mondays, Medicin GM/60ML wednesdays e suspension , fridays sodium 2015-07 Yes 15g Take 60 mL [facility]rene 1-04 by mouth [facility] (KAYEXALATE 00:00: daily. On o f ) Mondays, Medicin GM/60ML wednesdays e suspension , fridays sodium 2015-07 Yes 15g Take 60 mL [facility]rene 1-04 by mouth [facility] (KAYEXALATE 00:00: daily. On o f ) Mondays, Medicin GM/60ML wednesdays e suspension , fridays sodium 2015-07 Yes 15g Take 60 mL [facility] 1-04 by mouth [facility] (KAYEXALATE 00:00: daily. On o f ) Mondays, Medicin GM/60ML wednesdays e suspension , fridays sodium 2015-07 Yes 15g Take 60 mL [facility] 1-04 by mouth [facility] (KAYEXALATE 00:00: daily. On o f ) Mondays, Medicin GM/60ML thunes e suspension , fridays sodium 2015-07 Yes 15g Take 60 mL [facility] 1-04 by mouth [facility] (KAYEXALATE 00:00: daily. On o f ) Mondays, Medicin GM/60ML thunes e suspension , fridays sodium 2015-07 Yes 15g Take 60 mL [facility] 1-04 by mouth [facility] (KAYEXALATE 00:00: daily. On o f ) Mondays, Medicin GM/60ML thunes e suspension , fridays sodium 2015-07 Yes 15g Take 60 mL [facility]rene 1-04 by mouth [facility] (KAYEXALATE 00:00: daily. On o f ) Mondays, Medicin GM/60ML wednesdays e suspension , fridays sodium 2015-07 Yes 15g Take 60 mL [facility]rene 1-04 by mouth [facility] (KAYEXALATE 00:00: daily. On o f ) Mondays, Medicin GM/60ML wednesdays e suspension , fridays sodium 2015-07 Yes 15g Take 60 mL [facility]rene 1-04 by mouth [facility] (KAYEXALATE 00:00: daily. On o f ) Mondays, Medicin GM/60ML wednesdays e suspension , fridays sodium 2015-07 Yes 15g Take 60 mL [facility]rene 1-04 by mouth [facility] (KAYEXALATE 00:00: daily. On o f ) 15 Mondays, Medicin GM/60ML thunes e suspension , fridays sodium 2015-07 Yes 15g Take 60 mL [facility]rene 1-04 by mouth [facility] (KAYEXALATE 00:00: daily. On o f ) Mondays, Medicin GM/60ML thunes e suspension , fridays sodium 2015-07 Yes 15g Take 60 mL [facility] 1-04 by mouth [facility] (KAYEXALATE 00:00: daily. On o f ) Mondays, Medicin GM/60ML wednesdays e suspension , fridays sodium 2015-07 Yes 15g Take 60 mL [facility]rene 1-04 by mouth [facility] (KAYEXALATE 00:00: daily. On o f ) Mondays, Medicin GM/60ML wednesdays e suspension , fridays sodium 2015-07 Yes 15g Take 60 mL [facility]rene 1-04 by mouth [facility] (KAYEXALATE 00:00: daily. On o f ) Mondays, Medicin GM/60ML wednesdays e suspension , fridays atorvastati Yes 10mg Take 1 Tab [facility] n (LIPITOR) 2-09 by mouth [facility] 10 MG 00:00: daily. of tablet Medicin e atorvastati Yes 10mg Take 1 Tab [facility] n (LIPITOR) 2-09 by mouth [facility] 10 MG 00:00: daily. of tablet Medicin e atorvastati Yes 10mg Take 1 Tab [facility] n (LIPITOR) 2-09 by mouth [facility] 10 MG 00:00: daily. of tablet Medicin e atorvastati Yes 10mg Take 1 Tab [facility] n (LIPITOR) 2-09 by mouth [facility] 10 MG 00:00: daily. of tablet 00 Medicin e atorvastati Yes 10mg Take 1 Tab [facility] n (LIPITOR) 2-09 by mouth [facility] 10 MG 00:00: daily. of tablet 00 Medicin e atorvastati Yes 10mg Take 1 Tab [facility] n (LIPITOR) 2-09 by mouth [facility] 10 MG 00:00: daily. of tablet 00 Medicin e atorvastati Yes 10mg Take 1 Tab [facility] n (LIPITOR) 2-09 by mouth [facility] 10 MG 00:00: daily. of tablet 00 Medicin e atorvastati 0 Yes 10mg Take 1 Tab [facility] n (LIPITOR) 2-09 by mouth [facility] 10 MG 00:00: daily. of tablet 00 Medicin e atorvastati 0 Yes 10mg Take 1 Tab [facility] n (LIPITOR) 2-09 by mouth [facility] 10 MG 00:00: daily. of tablet 00 Medicin e atorvastati Yes 10mg Take 1 Tab [facility] n (LIPITOR) 2-09 by mouth [facility] 10 MG 00:00: daily. of tablet 00 Medicin e atorvastati Yes 10mg Take 1 Tab [facility] n (LIPITOR) 2-09 by mouth [facility] 10 MG 00:00: daily. of tablet 00 Medicin e atorvastati Yes 10mg Take 1 Tab [facility] n (LIPITOR) 2-09 by mouth [facility] 10 MG 00:00: daily. of tablet 00 Medicin e atorvastati Yes 10mg Take 1 Tab [facility] n (LIPITOR) 2-09 by mouth [facility] 10 MG 00:00: daily. of tablet 00 Medicin e atorvastati Yes 10mg Take 1 Tab [facility] n (LIPITOR) 2-09 by mouth [facility] 10 MG 00:00: daily. of tablet 00 Medicin e atorvastati Yes 10mg Take 1 Tab [facility] n (LIPITOR) 2-09 by mouth [facility] 10 MG 00:00: daily. of tablet 00 Medicin e Immunizations Ordered Immunization Filled Immunization Date Status Commen ts Source Name Name Influenza Hd 2020-08-23 Completed [facility] 00:[facility]:00 of Medicine Influenza Hd 2020-08-23 Completed [facility] 00:00:00 of Medicine Influenza Hd 2020-08-23 Completed [facility] ge 00:00:00 of Medicine Influenza Hd 2020-08-23 Completed [facility] 00:00:00 of Medicine Influenza Hd 2020-08-23 Completed [facility] 00:00:00 of Medicine Influenza Hd 2020-08-23 Completed [facility] 00:00:00 of Medicine Influenza Hd 2020-08-23 Completed [facility] 00:00:00 of Medicine Influenza Hd 2020-08-23 Completed [facility] 00:00:00 of Medicine Influenza Hd 2020-08-23 Completed [facility] 00:00:00 of Medicine Influenza Hd 2020-08-23 Completed [facility] 00:00:00 of Medicine Influenza Hd 2020-08-23 Completed [facility] 00:00:00 of Medicine Influenza Hd 2020-08-23 Completed [facility] 00:00:00 of Medicine Influenza Hd 2020-08-23 Completed [facility] 00:00:00 of Medicine Influenza Hd 2020-08-23 Completed [facility] 00:00:00 of Medicine Influenza Hd 2020-08-23 Completed [facility] 00:00:00 of Medicine Pneumococcal 2018-10-22 Completed [facility] Polysaccharide 00:00:00 of Medicin e Zoster Recombinant 2018-10-22 Completed [facility] 00:00:00 of Medicine Pneumococcal 2018-10-22 Completed [facility] Polysaccharide 00:00:00 of Medicin e Zoster Recombinant 2018-10-22 Completed [facility] 00:00:00 of Medicine Pneumococcal 2015-06-[address] [facility] Polysaccharide 00:00:00 Medical Ce nter (Pneumovax) Pneumococcal 2015-06-[address] [facility] Polysaccharide 00:00:00 Medical Ce nter (Pneumovax) Pneumococcal 2015-06-29 Completed [facility] Polysaccharide 00:00:00 of Medicin e Pneumococcal 2015-06-29 Completed [facility] Polysaccharide 00:00:00 of Medicin e Pneumococcal 2015-06-[address] [facility] Polysaccharide 00:00:00 Medical Ce nter (Pneumovax) Vital Signs Vital Name Observation Time Observation Value Comments Source Systolic blood 2022-01-06 13:46:00 126 mm[Hg] [facility] Medicine Diastolic blood 2022-01-06 13:46:00 65 mm[Hg] [facility] Heart rate 2022-01-06 13:46:00 51 /min [facility] Body height 2022-01-06 13:46:00 165.1 cm [facility] Systolic blood 2021-12-23 20:32:00 149 mm[Hg] [facility] Medicine Diastolic blood 2021-12-23 20:32:00 67 mm[Hg] [facility] Medicine Heart rate 2021-12-23 20:32:00 107 /min [facility] Respiratory rate 2021-12-23 20:32:00 16 /min [facility] Body height 2021-12-23 20:32:00 165.1 cm [facility] Body weight 2021-12-23 20:32:00 83.915 kg [facility] of Medicine BMI 2021-12-23 20:32:00 30.79 kg/m2 [facility] of Medicine Systolic blood 2021-08-27 18:15:00 157 mm[Hg] [facility] of pressure Medicine Diastolic blood 2021-08-27 18:15:00 83 mm[Hg] [facility] of pressure Medicine Heart rate 2021-08-27 18:15:00 53 /min [facility] Medicine Body temperature 2021-08-27 18:15:00 36.44 [facility] Body height 2021-08-27 18:15:00 [facility] Systolic blood 2021-06-24 20:19:00 138 mm[Hg] [facility] of pressure Medicine Diastolic blood 2021-06-24 20:19:00 57 mm[Hg] [facility] pressure Medicine Heart rate 2021-06-24 20:19:00 61 /min [facility] of [facility] Body temperature 2021-06-24 20:19:00 36.44 [facility] Body height 2021-06-24 20:19:00 [facility] Body weight 2021-06-24 20:19:00 83.915 [facility] BMI 2021-06-24 20:19:00 30.79 kg/m2 [facility] Systolic blood 2021-04-15 18:28:00 115 mm[Hg] [facility] pressure Medicine Diastolic blood 2021-04-15 18:28:00 55 mm[Hg] [facility] pressure Medicine Heart rate 2021-04-15 18:28:00 50 /min [facility] Medicine Systolic blood 2021-03-15 19:03:00 128 mm[Hg] [facility] of pressure Medicine Diastolic blood 2021-03-15 19:03:00 72 mm[Hg] [facility] of pressure Medicine Heart rate 2021-03-15 19:03:00 66 /min [facility] Body temperature 2021-03-15 19:03:00 36.44 [facility] Body height 2021-03-15 19:03:00 165.1 cm [facility] of Medicine Body weight 2021-03-15 19:03:00 84.278 kg [facility] of Medicine BMI 2021-03-15 19:03:00 30.92 kg/m2 [facility] of Medicine Systolic blood 2021-01-09 16:09:00 116 mm[Hg] [facility] pressure Medicine Diastolic blood 2021-01-09 16:09:00 64 mm[Hg] [facility] pressure Medicine Heart rate 2021-01-09 16:09:00 59 /min [facility] Medicine Respiratory rate 2021-01-09 16:09:00 18 /min [facility] Body height 2021-01-09 16:09:00 165.1 cm [facility] of Medicine Body weight 2021-01-09 16:09:00 82.555 kg [facility] Medicine BMI 2021-01-09 16:09:00 30.29 kg/m2 [facility] Medicine Systolic blood 2020-12-21 20:03:00 115 mm[Hg] [facility] pressure Medicine Diastolic blood 2020-12-21 20:03:00 57 mm[Hg] [facility] Medicine Heart rate 2020-12-21 20:03:00 57 /min [facility] Medicine Body temperature 2020-12-21 20:03:00 36.78 [facility] Body height 2020-12-21 20:03:00 165.1 cm [facility] of Medicine Body weight 2020-12-21 20:03:00 82.918 kg [facility] Medicine BMI 2020-12-21 20:03:00 30.42 kg/m2 [facility] Medicine Systolic blood 2020-11-05 20:40:00 122 mm[Hg] [facility] of pressure Medicine Diastolic blood 2020-11-05 20:40:00 64 mm[Hg] [facility] pressure Medicine Heart rate 2020-11-05 20:40:00 72 /min [facility] Medicine Body height 2020-11-05 20:40:00 165.1 cm [facility] Medicine Body weight 2020-11-05 20:40:00 76.204 kg [facility] of Medicine BMI 2020-11-05 20:40:00 27.96 kg/m2 [facility] of Medicine Systolic blood 2020-10-31 16:14:00 122 mm[Hg] [facility] pressure Medicine Diastolic blood 2020-10-31 16:14:00 69 mm[Hg] [facility] Medicine Heart rate 2020-10-31 16:14:00 71 /min [facility] of Medicine Body height 2020-10-31 16:14:00 165.1 cm [facility] Medicine Body weight 2020-10-31 16:14:00 76.204 kg [facility] of Medicine BMI 2020-10-31 16:14:00 27.96 kg/m2 [facility] of Medicine Systolic blood 2020-09-26 16:52:00 147 mm[Hg] [facility] pressure Medicine Diastolic blood 2020-09-26 16:52:00 61 mm[Hg] [facility] pressure Medicine Heart rate 2020-09-26 16:52:00 58 /min [facility] Medicine Body height 2020-09-26 16:52:00 165.1 cm [facility] of Medicine Body weight 2020-09-26 16:52:00 76.204 kg [facility] Medicine BMI 2020-09-26 16:52:00 27.96 kg/m2 [facility] Medicine Systolic blood 2020-09-25 15:19:00 133 mm[Hg] [facility] pressure Medicine Diastolic blood 2020-09-25 15:19:00 65 mm[Hg] [facility] pressure Medicine Heart rate 2020-09-25 15:19:00 69 /min [facility] Medicine Body temperature 2020-09-25 15:19:00 36.89 [facility] Body height 2020-09-25 15:19:00 165.1 cm [facility] Body weight 2020-09-25 15:19:00 76.295 kg [facility] BMI 2020-09-25 15:19:00 27.99 kg/m2 [facility] Systolic blood 2020-09-24 16:04:00 127 mm[Hg] [facility] pressure [facility] Diastolic blood 2020-09-24 16:04:00 58 mm[Hg] [facility] Heart rate 2020-09-24 16:04:00 55 /min [facility] Body height 2020-09-24 16:04:00 165.1 cm [facility] Systolic blood 2020-08-23 15:19:00 126 mm[Hg] [facility] Diastolic blood 2020-08-23 15:19:00 54 mm[Hg] [facility] Heart rate 2020-08-23 15:19:00 47 /min [facility] Body temperature 2020-08-23 15:19:00 36.56 [facility] Procedures Procedure Date / Time Performing Clinician Source Performed COMPREHENSIVE METABOLIC 2021-08-27 18:59:00 Alvina Zavala [facility] PANEL Medicine MAGNESIUM 2021-08-27 18:59:00 Alvina Zavala [facility] CBC W/AUTO DIFF WITH 2021-08-27 18:59:00 Alvina Zavala [facility] PLATELETS Medicine CBC W/AUTO DIFF WITH 2021-08-27 12:59:00 [facility] PL[facility]LE[facility] Medicine COMPREHENSIVE METABOLIC 2021-08-27 12:59:00 [facility] PANEL Medicine MAGNESIUM 2021-08-27 12:59:00 [facility] PSA 2021-08-27 12:59:00 [facility] POCT URINALYSIS DIPSTICK 2021-06-24 00:00:00 Camille Pagan [facility] POCT URINALYSIS DIPSTICK 2021-06-24 00:00:00 [facility] Plan of Care Planned Activity Planned Date Details Comments Source Future Scheduled 2022-07-03 COVID-[address] Test 00:07:03 (#1) [code = Hospital COVID-19 VACCINE (#1)] Future Scheduled 2022-07-03 SHINGLES VACCINES (1 [facility] 00:07:03 of 2) [code = Hospital SHINGLES VACCINES (1 of 2)] Future Scheduled 2022-07-03 65+ PNEUMOCOCCAL [facility] Test 00:07:03 VACCINE (1 - PCV) Hospital [code = 65+ PNEUMOCOCCAL VACCINE (1 - PCV)] Future Scheduled 2022-07-03 INFLUENZA VACCINE [facility] Test 00:07:03 [code = INFLUENZA Hospital VACCINE] Future Scheduled 2022-01-15 COVID-19 Vaccine [facility] Test 17:44:53 (#1) [code = of Medicine COVID-19 Vaccine (#1)] Future Scheduled 2022-01-15 TETANUS SHOT (ADULT) [place] [facility] [place] Test 17:44:53 [code = TETANUS SHOT of Medi cine (ADULT)] Future Scheduled 2022-01-15 ZOSTER VACCINE (2 of [facility] Test 17:44:53 2) [code = ZOSTER of Medicin e VACCINE (2 of 2)] Future Scheduled 2022-01-15 Pneumococcal 65+ (2 [employer] Test 17:44:53 - PCV) [code = of Medicine Pneumococcal 65+ (2 - PCV)] Future Scheduled 2022-01-15 MEDICARE AWV [facility] Test 17:44:53 (Initial) [code = of Medicin e MEDICARE AWV (Initial)] Future Scheduled 2022-01-15 FLU VACCINE > 6 [facility] C [facility] Test 17:44:53 MONTHS [code = FLU of Medici ne VACCINE > 6 MONTHS] Future Scheduled 2022-01-15 FALL SCREEN [code = [employer] Test 17:44:53 FALL SCREEN] of Medicine Future Scheduled 2022-01-15 BMI FOLLOW UP PLAN [facility] Test 17:44:53 [code = BMI FOLLOW of Medici ne UP PLAN] Future Scheduled 2022-01-06 COVID-19 Vaccine [facility] Test 12:11:25 (#1) [code = of Medicine COVID-19 Vaccine (#1)] Future Scheduled 2022-01-06 TETANUS SHOT (ADULT) [place] [facility] [employer] Test 12:11:25 [code = TETANUS SHOT of Medi cine (ADULT)] Future Scheduled 2022-01-06 ANNUAL DIABETIC [facility] C [facility] Test 12:11:25 RETINOPATHY of Medicine SCREENING [code = ANNUAL DIABETIC RETINOPATHY SCREENING] Future Scheduled 2022-01-06 ZOSTER VACCINE (2 of [place] [facility] Test 12:11:25 2) [code = ZOSTER of Medicin e VACCINE (2 of 2)] Future Scheduled 2022-01-06 Pneumococcal 65+ (2 [employer] Test 12:11:25 - PCV) [code = of Medicine Pneumococcal 65+ (2 - PCV)] Future Scheduled 2022-01-06 MEDICARE AWV [facility] Test 12:11:25 (Initial) [code = of Medicin e MEDICARE AWV (Initial)] Future Scheduled 2022-01-06 Diabetic foot [facility] Test 12:11:25 examination of Medicine (regime/therapy) [code = 805780270] Future Scheduled 2022-01-06 FLU VACCINE > 6 [facility] C [facility]lege Test 12:11:25 MONTHS [code = FLU of Medici ne VACCINE > 6 MONTHS] Future Scheduled 2022-01-06 FALL SCREEN [code = [employer] Test 12:11:25 FALL SCREEN] of Medicine Future Scheduled 2022-01-06 BMI FOLLOW UP PLAN [facility] Test 12:11:25 [code = BMI FOLLOW of Medici ne UP PLAN] Future Scheduled 2022-01-06 US ARTERIAL LEGS 1 Occurrences [facility] Test 09:26:12 BILATERAL [code = starting of Medicin e 18131-8] 01/06/2022 until 01/06/2023 Future Scheduled 2021-09-10 CT CHEST ABDOMEN Expected: [facility] Test 00:00:00 PELVIS W CONTRAST 09/10/2021, of Medicin e [code = 23077-3] Expires: 08/27/2022 Future Scheduled 2021-08-27 PSA [code = 2857-1] [facility] Test 12:42:56 of Medicine Future Scheduled 2021-08-27 COVID-19 Vaccine (1) [place] [facility] [place] Test 12:16:36 [code = COVID-19 of Medicine Vaccine (1)] Future Scheduled 2021-08-27 TETANUS SHOT (ADULT) [place] [facility] [employer] Test 12:16:36 [code = TETANUS SHOT of Medi cine (ADULT)] Future Scheduled 2021-08-27 ANNUAL DIABETIC [facility] Test 12:16:36 RETINOPATHY of Medicine SCREENING [code = ANNUAL DIABETIC RETINOPATHY SCREENING] Future Scheduled 2021-08-27 ZOSTER VACCINE (1 of [place] [employer] Test 12:16:36 2) [code = ZOSTER of Medicin e VACCINE (1 of 2)] Future Scheduled 2021-08-27 FALL SCREEN [code = [employer] Test 12:16:36 FALL SCREEN] of Medicine Future Scheduled 2021-08-27 Pneumococcal 65+ (1 [employer] Test 12:16:36 of 1 - PPSV23) [code of Medi cine = Pneumococcal 65+ (1 of 1 - PPSV23)] Future Scheduled 2021-08-27 MEDICARE AWV [facility] Test 12:16:36 (Initial) [code = of Medicin e MEDICARE AWV (Initial)] Future Scheduled 2021-08-27 FLU VACCINE > 6 [facility] Test 12:16:36 MONTHS [code = FLU of Medici ne VACCINE > 6 MONTHS] Future Scheduled 2021-08-27 BMI FOLLOW UP PLAN [facility] Test 12:16:36 [code = BMI FOLLOW of Medici ne UP PLAN] Future Scheduled 2021-08-27 Diabetic foot [facility] Test 12:16:36 examination of Medicine (regime/therapy) [code = 895543977] Future Scheduled 2021-08-20 SHINGLES VACCINES [facility] Test 14:26:14 (#1) [code = Hospital SHINGLES VACCINES (#1)] Future Scheduled 2021-08-20 65+ PNEUMOCOCCAL [facility] Test 14:26:14 VACCINE (1 of 1 - Hospital PPSV23) [code = 65+ PNEUMOCOCCAL VACCINE (1 of 1 - PPSV23)] Future Scheduled 2021-08-20 INFLUENZA VACCINE [facility] Test 14:26:14 [code = INFLUENZA Hospital VACCINE] Future Scheduled 2021-08-20 COVID-19 VACCINE (1) [facility] 14:26:14 [code = COVID-19 Hospital VACCINE (1)] Future Scheduled 2021-08-20 SHINGLES VACCINES [facility] Test 14:26:14 (#1) [code = Hospital SHINGLES VACCINES (#1)] Future Scheduled 2021-08-20 65+ PNEUMOCOCCAL [facility] Test 14:26:14 VACCINE (1 of 1 - Hospital PPSV23) [code = 65+ PNEUMOCOCCAL VACCINE (1 of 1 - PPSV23)] Future Scheduled 2021-08-20 INFLUENZA VACCINE [facility] Test 14:26:14 [code = INFLUENZA Hospital VACCINE] Future Scheduled 2021-08-20 COVID-19 VACCINE (1) [facility] 14:26:14 [code = COVID-19 Hospital VACCINE (1)] Future Scheduled 2021-07-03 COVID-19 Vaccine (1) [place] [employer] Test 13:49:39 [code = COVID-19 of Medicine Vaccine (1)] Future Scheduled 2021-07-03 TETANUS SHOT (ADULT) [place] [facility] Test 13:49:39 [code = TETANUS SHOT of Medi cine (ADULT)] Future Scheduled 2021-07-03 ANNUAL DIABETIC [facility] Test 13:49:39 RETINOPATHY of Medicine SCREENING [code = ANNUAL DIABETIC RETINOPATHY SCREENING] Future Scheduled 2021-07-03 ZOSTER VACCINE (1 of [place] [employer] Test 13:49:39 2) [code = ZOSTER of Medicin e VACCINE (1 of 2)] Future Scheduled 2021-07-03 FALL SCREEN [code = [employer] Test 13:49:39 FALL SCREEN] of Medicine Future Scheduled 2021-07-03 Pneumococcal 65+ (1 [employer] Test 13:49:39 of 1 - PPSV23) [code of Medi cine = Pneumococcal 65+ (1 of 1 - PPSV23)] Future Scheduled 2021-07-03 MEDICARE AWV [facility] Test 13:49:39 (Initial) [code = of Medicin e MEDICARE AWV (Initial)] Future Scheduled 2021-07-03 FLU VACCINE > 6 [facility] Test 13:49:39 MONTHS [code = FLU of Medici ne VACCINE > 6 MONTHS] Future Scheduled 2021-07-03 BMI FOLLOW UP PLAN [employer] [employer] Test 13:49:39 [code = BMI FOLLOW of Medici ne UP PLAN] Future Scheduled 2021-07-03 Diabetic foot [facility] Test 13:49:39 examination of Medicine (regime/therapy) [code = 519703083] Future Scheduled 2021-04-23 COVID-19 Vaccine (1) [place] [facility] Test 10:51:23 [code = COVID-19 of Medicine Vaccine (1)] Future Scheduled 2021-04-23 TETANUS SHOT (ADULT) [place] [employer] Test 10:51:23 [code = TETANUS SHOT of Medi cine (ADULT)] Future Scheduled 2021-04-23 ANNUAL DIABETIC [facility] Test 10:51:23 RETINOPATHY of Medicine SCREENING [code = ANNUAL DIABETIC RETINOPATHY SCREENING] Future Scheduled 2021-04-23 ZOSTER VACCINE (1 of [place] [employer] Test 10:51:23 2) [code = ZOSTER of Medicin e VACCINE (1 of 2)] Future Scheduled 2021-04-23 FALL SCREEN [code = [employer] Test 10:51:23 FALL SCREEN] of Medicine Future Scheduled 2021-04-23 MEDICARE AWV [facility] Test 10:51:23 (Initial) [code = of Medicin e MEDICARE AWV (Initial)] Future Scheduled 2021-04-23 FLU VACCINE > 6 [facility] Test 10:51:23 MONTHS [code = FLU of Medici ne VACCINE > 6 MONTHS] Future Scheduled 2021-04-23 BMI FOLLOW UP PLAN [facility] Test 10:51:23 [code = BMI FOLLOW of Medici ne UP PLAN] Future Scheduled 2021-04-23 Diabetic foot [facility] Test 10:51:23 examination of Medicine (regime/therapy) [code = [id number]] Future Scheduled 2021-04-23 COVID-19 Vaccine (1) [place] [facility] [employer] Test 10:51:23 [code = COVID-19 of Medicine Vaccine (1)] Future Scheduled 2021-04-23 TETANUS SHOT (ADULT) [place] [employer] Test 10:51:23 [code = TETANUS SHOT of Medi cine (ADULT)] Future Scheduled 2021-04-23 ANNUAL DIABETIC [facility] Test 10:51:23 RETINOPATHY of Medicine SCREENING [code = ANNUAL DIABETIC RETINOPATHY SCREENING] Future Scheduled 2021-04-23 ZOSTER VACCINE (1 of [employer] Test 10:51:23 2) [code = ZOSTER of Medicin e VACCINE (1 of 2)] Future Scheduled 2021-04-23 FALL SCREEN [code = [employer] Test 10:51:23 FALL SCREEN] of Medicine Future Scheduled 2021-04-23 MEDICARE AWV [facility] [employer] Test 10:51:23 (Initial) [code = of Medicin e MEDICARE AWV (Initial)] Future Scheduled 2021-04-23 FLU VACCINE > 6 [facility] [employer] Test 10:51:23 MONTHS [code = FLU of Medici ne VACCINE > 6 MONTHS] Future Scheduled 2021-04-23 BMI FOLLOW UP PLAN [employer] Test 10:51:23 [code = BMI FOLLOW of Medici ne UP PLAN] Future Scheduled 2021-04-23 Diabetic foot [facility] Test 10:51:23 examination of Medicine (regime/therapy) [code = 587559403] Future Scheduled 2021-04-15 MRI ABDOMEN W WO 1 Occurrences [facility] Test 14:13:28 CONTRAST [code = starting of Medicine 66784-9] 04/15/2021 until 04/15/2022 Future Scheduled 2021-04-15 MRI ABDOMEN W WO 1 Occurrences [facility] Test 14:13:28 CONTRAST [code = starting of Medicine 17534-4] 04/15/2021 until 04/15/2022 Future Scheduled 2021-03-16 COVID-19 Vaccine (1) [facility] Test 15:18:16 [code = COVID-19 of Medicine Vaccine (1)] Future Scheduled 2021-03-16 TETANUS SHOT (ADULT) [facility] Test 15:18:16 [code = TETANUS SHOT of Medi cine (ADULT)] Future Scheduled 2021-03-16 ANNUAL DIABETIC [facility] [employer] Test 15:18:16 RETINOPATHY of Medicine SCREENING [code = ANNUAL DIABETIC RETINOPATHY SCREENING] Future Scheduled 2021-03-16 ZOSTER VACCINE (1 of [facility] Test 15:18:16 2) [code = ZOSTER of Medicin e VACCINE (1 of 2)] Future Scheduled 2021-03-16 FALL SCREEN [code = [facility] Test 15:18:16 FALL SCREEN] of Medicine Future Scheduled 2021-03-16 MEDICARE AWV [facility] [employer] Test 15:18:16 (Initial) [code = of Medicin e MEDICARE AWV (Initial)] Future Scheduled 2021-03-16 FLU VACCINE > 6 [facility] [employer] Test 15:18:16 MONTHS [code = FLU of Medici ne VACCINE > 6 MONTHS] Future Scheduled 2021-03-16 BMI FOLLOW UP PLAN [facility] Test 15:18:16 [code = BMI FOLLOW of Medici ne UP PLAN] Future Scheduled 2021-03-16 Diabetic foot [facility] [employer] Test 15:18:16 examination of Medicine (regime/therapy) [code = 436999046] Future Scheduled 2021-03-15 CBC W/AUTO DIFF WITH Ordered: [employer] Test 14:42:00 PLATELETS [code = 03/15/2021 of Medicin e 60981-8] Future Scheduled 2021-03-15 COMPREHENSIVE Ordered: [facility] [employer] Test 14:42:00 METABOLIC PANEL 03/15/2021 of Medicine [code = 73141-5] Future Scheduled 2021-03-15 MAGNESIUM [code = Ordered: [facility] Test 14:42:00 17161-3] 03/15/2021 of Medicine Future Scheduled 2021-03-15 PSA [code = 2857-1] Ordered: [employer] Test 14:42:00 03/15/2021 of Medicine Future Scheduled 2021-01-15 COVID-19 Vaccine (1) [employer] Test 22:28:42 [code = COVID-19 of Medicine Vaccine (1)] Future Scheduled 2021-01-15 TETANUS SHOT (ADULT) [employer] Test 22:28:42 [code = TETANUS SHOT of Medi cine (ADULT)] Future Scheduled 2021-01-15 ZOSTER VACCINE (1 of [employer] Test 22:28:42 2) [code = ZOSTER of Medicin e VACCINE (1 of 2)] Future Scheduled 2021-01-15 FALL SCREEN [code = [employer] 22:28:42 FALL SCREEN] of Medicine Future Scheduled 2021-01-15 MEDICARE AWV [facility] [employer] Test 22:28:42 (Initial) [code = of Medicin e MEDICARE AWV (Initial)] Future Scheduled 2021-01-15 FLU VACCINE > 6 [facility] [employer] Test 22:28:42 MONTHS [code = FLU of Medici ne VACCINE > 6 MONTHS] Future Scheduled 2021-01-15 BMI FOLLOW UP PLAN [facility] [employer] Test 22:28:42 [code = BMI FOLLOW of Medici ne UP PLAN] Future Scheduled 2020-12-21 COVID-19 Vaccine (1) [employer] Test 15:10:48 [code = COVID-19 of Medicine Vaccine (1)] Future Scheduled 2020-12-21 TETANUS SHOT (ADULT) [employer] Test 15:10:48 [code = TETANUS SHOT of Medi cine (ADULT)] Future Scheduled 2020-12-21 ZOSTER VACCINE (1 of [employer] Test 15:10:48 2) [code = ZOSTER of Medicin e VACCINE (1 of 2)] Future Scheduled 2020-12-21 FALL SCREEN [code = [employer] [facility] 15:10:48 FALL SCREEN] of Medicine Future Scheduled 2020-12-21 MEDICARE AWV [facility] [employer] Test 15:10:48 (Initial) [code = of Medicin e MEDICARE AWV (Initial)] Future Scheduled 2020-12-21 FLU VACCINE > 6 [facility] [employer] Test 15:10:48 MONTHS [code = FLU of Medici ne VACCINE > 6 MONTHS] Future Scheduled 2020-12-21 BMI FOLLOW UP PLAN [employer] Test 15:10:48 [code = BMI FOLLOW of Medici ne UP PLAN] Future Scheduled TOMASA,POST-VOID Ordered: [facility] [employer] Test RES,US,NON-IMG [code 08/23/2020 of Medi iodine = 63261] Future Scheduled COMPREHENSIVE Ordered: [facility] [employer] Test METABOLIC PANEL 08/23/2020 of Medicine [code = 42658-2] Future Scheduled CBC W/AUTO DIFF WITH Ordered: [employer] PLATELETS [code = 08/23/2020 of Medicin e 92544-6] Future Scheduled VITAMIN B12 [code = Ordered: [employer] 2132-9] 08/23/2020 of Medicine Future Scheduled COVID-19 Vaccine [facility] Test Evaluation [code = of Medici ne COVID-19 Vaccine Evaluation] Future Scheduled TETANUS SHOT (ADULT) [employer] Test [code = TETANUS SHOT of Medi cine (ADULT)] Future Scheduled BMI FOLLOW UP PLAN [employer] [facility] [code = BMI FOLLOW of Medici ne UP PLAN] Future Scheduled ZOSTER VACCINE (1 of [employer] Test 2) [code = ZOSTER of Medicin e VACCINE (1 of 2)] Future Scheduled FALL SCREEN [code = [employer] FALL SCREEN] of Medicine Future Scheduled PNEUMOVAX >=65 [facility] [employer] Test (PPSV23) [code = of Medicine PNEUMOVAX >=65 (PPSV23)] Future Scheduled MEDICARE IPPE [facility] Test (WELCOME TO of Medicine MEDICARE) [code = MEDICARE IPPE (WELCOME TO MEDICARE)] Future Scheduled COVID-19 Vaccine [facility] Test Evaluation [code = of Medici ne COVID-19 Vaccine Evaluation] Future Scheduled TETANUS SHOT (ADULT) [employer] [facility] [code = TETANUS SHOT of Medi cine (ADULT)] Future Scheduled ZOSTER VACCINE (1 of [employer] Test 2) [code = ZOSTER of Medicin e VACCINE (1 of 2)] Future Scheduled FALL SCREEN [code = [employer] FALL SCREEN] of Medicine Future Scheduled MEDICARE IPPE [facility] [employer] Test (WELCOME TO of Medicine MEDICARE) [code = MEDICARE IPPE (WELCOME TO MEDICARE)] Future Scheduled BMI FOLLOW UP PLAN [employer] [facility] [code = BMI FOLLOW of Medici ne UP PLAN] Future Scheduled CBC W/AUTO DIFF WITH Ordered: [employer] PLATELETS [code = 09/25/2020 of Medicin e 25467-7] Future Scheduled COMPREHENSIVE Ordered: [facility] [employer] Test METABOLIC PANEL 09/25/2020 of Medicine [code = 33170-4] Future Scheduled MAGNESIUM [code = Ordered: [facility] Test 11425-9] 09/25/2020 of Medicine Future Scheduled PSA [code = 2857-1] Ordered: [employer] 09/25/2020 of Medicine Future Scheduled TESTOSTERONE [code = Ordered: [employer] [facility] 2986-8] 09/25/2020 of Medicine Future Scheduled COVID-19 Vaccine [facility] Test Evaluation [code = of Medici ne COVID-19 Vaccine Evaluation] Future Scheduled TETANUS SHOT (ADULT) [employer] Test [code = TETANUS SHOT of Medi cine (ADULT)] Future Scheduled ZOSTER VACCINE (1 of [employer] Test 2) [code = ZOSTER of Medicin e VACCINE (1 of 2)] Future Scheduled FALL SCREEN [code = [employer] FALL SCREEN] of Medicine Future Scheduled MEDICARE IPPE [facility] [employer] [facility] (WELCOME TO of Medicine MEDICARE) [code = MEDICARE IPPE (WELCOME TO MEDICARE)] Future Scheduled BMI FOLLOW UP PLAN [employer] Test [code = BMI FOLLOW of Medici ne UP PLAN] Future Scheduled TETANUS SHOT (ADULT) [employer] Test [code = TETANUS SHOT of Medi cine (ADULT)] Future Scheduled COVID-19 Vaccine (1) [employer] Test [code = COVID-19 of Medicine Vaccine (1)] Future Scheduled ZOSTER VACCINE (1 of [employer] Test 2) [code = ZOSTER of Medicin e VACCINE (1 of 2)] Future Scheduled FALL SCREEN [code = [employer] FALL SCREEN] of Medicine Future Scheduled MEDICARE IPPE [facility] Test (WELCOME TO of [facility] MEDICARE) [code = MEDICARE IPPE (WELCOME TO MEDICARE)] Future Scheduled BMI FOLLOW UP PLAN [employer] [facility] [code = BMI FOLLOW of Medici ne UP PLAN] Future Scheduled TETANUS SHOT (ADULT) [employer] Test [code = TETANUS SHOT of Medi cine (ADULT)] Future Scheduled COVID-19 Vaccine (1) [employer] Test [code = COVID-19 of Medicine Vaccine (1)] Future Scheduled ZOSTER VACCINE (1 of [employer] Test 2) [code = ZOSTER of Medicin e VACCINE (1 of 2)] Future Scheduled FALL SCREEN [code = [employer] FALL SCREEN] of Medicine Future Scheduled MEDICARE AWV [facility] [employer] Test (Initial) [code = of Medicin e MEDICARE AWV (Initial)] Future Scheduled MEDICARE IPPE [employer] Test (WELCOME TO of Medicine MEDICARE) [code = MEDICARE IPPE (WELCOME TO MEDICARE)] Future Scheduled FLU VACCINE > 6 [facility] [employer] Test MONTHS [code = FLU of Medici ne VACCINE > 6 MONTHS] Future Scheduled BMI FOLLOW UP PLAN [employer] Test [code = BMI FOLLOW of Medici ne UP PLAN] Future Scheduled TETANUS SHOT (ADULT) [employer] Test [code = TETANUS SHOT of Medi cine (ADULT)] Future Scheduled COVID-19 Vaccine (1) [employer] Test [code = COVID-19 of Medicine Vaccine (1)] Future Scheduled ZOSTER VACCINE (1 of [employer] Test 2) [code = ZOSTER of Medicin e VACCINE (1 of 2)] Future Scheduled FALL SCREEN [code = [employer] FALL SCREEN] of Medicine Future Scheduled MEDICARE AWV [facility] [employer] [facility] (Initial) [code = of Medicin e MEDICARE AWV (Initial)] Future Scheduled FLU VACCINE > 6 [facility] [employer] Test MONTHS [code = FLU of Medici ne VACCINE > 6 MONTHS] Future Scheduled BMI FOLLOW UP PLAN [employer] Test [code = BMI FOLLOW of Medici ne UP PLAN] Future Scheduled UROFLOWMETRY [code = Ordered: [employer] 16681] 08/23/2020 of Medicine Future Scheduled US ARTERIAL LEGS 1 Occurrences [facility] Test BILATERAL [code = starting of Medicin e 91749-7] 11/05/2020 until 11/05/2021 Encounters Start End Encounter Admission Attending Care Care Encounter Source Date/Time Date/Time Type Type Clinicians Facility Department ID 2022-05-28 2022-05-28 Outpatient Mineo_M [facility] [id number] [place] 00:00:00 00:00:00 [id number] [facility] 2022-04-25 2022-04-25 Outpatient Mineo_M [facility] [id number] [place] 00:00:00 00:00:00 [facility] 2022-04-24 2022-04-24 Outpatient Mineo_M [facility] [id number] [place] 00:00:00 00:00:00 [facility] 2022-01-06 2022-01-06 Office ROS MONDRAGON 1.2.840.114 [id number] [facility] 08:16:29 09:28:51 Visit CAMILA AMBULATOR 350.1.13.21 College Y 0.2.7.2.686 of [id number] [facility] 825 e 2021-12-23 2021-12-23 Office ROS Hastings 1.2.840.114 [id number] [facility] 15:45:00 16:32:08 Visit Dilip Solano AMBULATOR 350.1.13.21 College Y 0.2.7.2.686 of [id number] [facility] 825 e 2021-09-03 2021-09-03 Outpatient ANTOLIN LOPEZ [facility] [id number] [facility] 00:00:00 00:00:00 2021-09-03 2021-09-03 Outpatient ANTOLIN LOPEZ SLEVon [id number] [facility] 00:00:00 00:00:00 2021-08-27 2021-08-27 Office ALVINA ZAVALA [facility] 1.2.840.114 [id number] [facility] 10:54:21 14:23:50 Visit Arlyn 350.1.13.21 Co llege 0.2.7.2.686 of [id number] [facility] 504 e 2021-08-27 2021-08-27 Outside Antolin Zavala [facility] [id number] [facility] 00:00[facility]00 00:00:00 Orders [facility] 2021-08-27 2021-08-27 Outside Antolin Zavala [facility] [id number] [facility] 00:00:00 00:00:00 Orders [facility] 2021-06-24 2021-06-24 Office DENNIS [facility] 1.2.840.114 [id number] [facility] 14:07:08 16:47:24 Visit CAMILLE AMBULATOR 350.1.13.21 College Y 0.2.7.2.686 of [id number] Medi najma 300 e 2021-06-07 2021-06-07 Outpatient ROS DE LEÓN [facility] [id number] [facility] 14:16:38 15:12:54 [employer] [facility] [employer] of Medicin e 2021-05-01 2021-05-01 Outpatient [facility] [id number] [facility] 11:01:58 11:01:58 Colleg e of Medicin e 2021-04-15 2021-04-15 Office Dennis [facility] 1.2.840.114 [id number] [facility] 13:18:52 16:01:31 Visit Camille E AMBULATOR 350.1.13.21 College Y 0.2.7.2.686 of [id number] Medi najma 300 e 2021-03-15 2021-03-15 Office MoraimaAlvina [facility] 1.2.840.114 [id number] [facility] 13:15:19 15:00:44 Visit Nikolai Arlyn 350.1.13.21 Co llege 0.2.7.2.686 of [id number] Medi najma 530 e 2021-02-19 2021-02-19 Outpatient ROS VINES [facility] [id number] [facility] 16:05:08 19:30:10 [employer]in e 2021-01-09 2021-01-09 Office ROS HASTINGS 1.2.840.114 [id number] [facility] 10:32:34 12:59:37 Visit DILIP AMBULATOR 350.1.13.21 College Y 0.2.7.2.686 of [id number] Medi najma 825 e 2020-12-21 2020-12-21 Office Alvina Zavala [facility] 1.2.840.114 [id number] [facility] 15:01:39 15:38:38 Visit Edmerissa Arlyn 350.1.13.21 Co llege 0.2.7.2.686 of [id number] [facility] najma 530 e 2020-11-16 2020-11-16 Outside Axel [facility] [id number] [facility] [address] 00:00:00 00:00:00 Orders [facility] 2020-11-05 2020-11-05 Office ROS Leslie 1.2.840.114 [id number] [facility] 14:42:44 16:28:44 Visit Filipe AMBULATOR 350.1.13.21 College Phil Y 0.2.7.2.686 of [id number] [facility] najma 825 e 2020-10-31 2020-10-31 Office ROS [place] 1.2.840.114 [id number] [facility] 10:49:37 13:41:16 Visit Dilip Solano AMBULATOR 350.1.13.21 College Y 0.2.7.2.686 of [id number] [facility] najma 825 e 2020-09-26 2020-09-26 Office ROS [place] 1.2.840.114 [id number] [facility] 10:38:57 14:08:49 Visit Dilip Solano AMBULATOR 350.1.13.21 College Y 0.2.7.2.686 of [id number] [facility] najma 825 e 2020-09-25 2020-09-25 Office Alvina Zavala [facility] 1.2.840.114 [id number] [facility] 09:08:05 10:47:44 Visit Edmerissa Arlyn 350.1.13.21 Co llege 0.2.7.2.686 of [id number] [facility] najma 530 e 2020-09-24 2020-09-24 Office ROS Leslie 1.2.840.114 [id number] [facility] 08:40:42 08:55:42 Visit Filipe AMBULATOR 350.1.13.21 College Phil Y 0.2.7.2.686 of [id number] [facility] najma 825 e 2020-08-23 2020-08-23 Office ROS Vines 1.2.840.114 [id number] [facility] 08:42:29 08:57:29 Visit Joao Marrero AMBULATOR 350.1.13.21 College Y 0.2.7.2.686 of [id number] [facility] najma 300 e 2020-06-19 2020-06-19 Outpatient R ADAM [facility] [id number] [employer] 19:00:00 19:00:00 DYLANSPENCER ity [facility] 2020-06-19 2020-06-19 Laboratory Lab, [facility] Fam Pob I [facility] 1.2. 840.114 [id number] [facility] 16:32:43 16:52:43 Only Adam Adrian [employer] 350.1.13.10 ity [facility] 4.2.7.2.686 [employer] as Professio [id number] [address] Office Building [facility] 2020-06-19 2020-06-19 Laboratory Lab, [facility] 1.2.840.114 [id number] 16:32:43 16:52:43 Only Fam Pob I Health 350.1.13.10 [place] 4.2.7.2.686 Professio [id number] [place] [address] [address] 2018-01-21 2018-01-21 Outpatient [facility] [id number] [facility] 00:00:00 00:00:00 Results Test Description Test Time Test Comments Results Result Comments Source COMPREHENSIVE METABOLIC PANEL 2021-08-27 20:06:30 Test Item Value Reference Range Interpretation Comme nts GLUCOSE (test code = 2345-7) See_Comment [Automated message] The system which generated this result transmitted ref erence range: 70 - 99 MG/DL. The reference range was not used to interpret this result as young l/abnormal. BLOOD UREA NITROGEN (test code See_Comment H [Automated message] The system = 3091-6) which generated this result transmitted ref erence range: 8 - 23 MG/DL. The r eference range was not used to interpret this result as young l/abnormal. CREATININE (test code = See_Comment [Au tomated message] The system 2160-0) which generated this result transmitted ref erence range: 0.8 - 1.4 MG/DL. Th e reference range was not used to interpret this result as young l/abnormal. EGFR (test code = 53587-3) See_Comment L [Automated message] The system which generated this result transmitted ref erence range: >60 ML/MIN/1.73. Th e reference range was not used to interpret this result as young l/abnormal. BUN/CREAT RATIO (test code = See_Comment H [Automated message] The system 3097-3) which generated this result transmitted ref erence range: 6 - 28 RATIO. The r eference range was not used to interpret this result as young l/abnormal. SODIUM (test code = 2951-2) See_Comment [Automated message] The system which generated this result transmitted ref erence range: 133 - 146 MEQ/L. Th e reference range was not used to interpret this result as young l/abnormal. POTASSIUM (test code = 2823-3) See_Comment $$$ SERUM SLIGHTLY HEMOLYZED $$$ [Automated mess age] The system which generated this result transmitted ref erence range: 3.5 - 5.4 MEQ/L. Th e reference range was not used to interpret this result as young l/abnormal. CHLORIDE (test code = 2075-0) See_Comment [Automated message] The system which generated this result transmitted ref erence range: 100 - 112 MEQ/L. Th e reference range was not used to interpret this result as young l/abnormal. CO2 (test code = 1963-8) See_Comment [A utomated message] The system which generated this result transmitted ref erence range: 21 - 30 MEQ/L. The reference range was not used to interpret this result as young l/abnormal. CALCIUM (test code = 32154-1) See_Comment [Automated message] The system which generated this result transmitted ref erence range: 8.5 - 10.5 MG/DL. T he reference range was not u sed to interpret this result as normal/abnormal. PROTEIN TOTAL (test code = See_Comment [Automated message] The system 2882) which generated this result transmitted ref erence range: 6.1 - 8.1 G/DL. The reference range was not used to interpret this result as young l/abnormal. ALBUMIN (test code = 77719-1) See_Comment [Automated message] The system which generated this result transmitted ref erence range: 3.4 - 4.8 G/DL. The reference range was not used to interpret this result as young l/abnormal. GLOBULINS, SERUM, TOTAL (test See_Comment [Automated message] The system code = 60766-6) which genera thierry this result transmitted ref erence range: 1.9 - 3.7 G/DL. The reference range was not used to interpret this result as young l/abnormal. A/G RATIO (test code = 1759-0) See_Comment [Automated message] The system which generated this result transmitted ref erence range: 1.0 - 2.6 RATIO. Th e reference range was not used to interpret this result as young l/abnormal. BILIRUBIN TOTAL (test code = See_Comment [Automated message] The system 1974-08) which generated this result transmitted ref erence range: <=1.2 MG/DL. Th e reference range was not used to interpret this result as young l/abnormal. ALKALINE PHOSPHATASE (test 106 U/L 30-132 code = 6768-6) AST (SGOT) (test code = 39 U/L 56 1919-8) ALT (SGPT) (test code = 24 U/L 3-47 WHITNEY TING PERFORMED AT [facility] 1744-2) PATHOLOGY LABOR [employer] [address], [address] [place], [place] [address] CLIA NO. [id number] Unle ss Otherwise Indicated, All Testing Performed At: [facility] athology [facility], [address] [place] [phone] [employer]: María Avila M.D. CLIA Number [id number] Cap Accreditation [place] o. [id number] Lab Interpretation (test code Abnormal = 03808-5) [facility]55 Test Item Value Reference Range Interpretation Comments MAGNESIUM (test code = See_[place] [address]-9) [facility] [place] [address] [place], [place] [address] CLIA NO. [id number] Unle ss Otherwise Indic ated, All Testing Perform ed At: [facility], [address] [place] [address] Laboratory Dire ctor: Brandy Tipton. CLIA Number [id number] [employer] Accreditation N o. [id number] [Automated mess age] The system which ge nerated this result tra nsmitted reference range : 1.6 - 2.6 MG/DL. The refe rence range was not used to interpret this result as normal/abnormal . [facility] W/AUTO DIFF WITH [id number] 19:28:36 Test Item Value Reference Range Interpretation Comments WHITE BLOOD CELL COUNT See_Comment [Aut omated message] (test code = 35922-2) The sy stem which generated this result transmitted ref erence range: 3.5 - 11 .0 K/UL. The refer ence range was not u sed to interpret this result as normal/abnor mal. RED BLOOD CELL COUNT See_Comment [Autom ated message] (test code = 48082-9) The sy stem which generated this result transmitted ref erence range: 4.50 - 6 .10 M/UL. The refer ence range was not u sed to interpret this result as normal/abnor mal. HEMOGLOBIN (test code = See_Comment [Au tomated message] 718-7) The system whic h generated this result transmitted ref erence range: 13.5 - 1 7.0 G/DL. The refer ence range was not u sed to interpret this result as normal/abnor mal. HEMATOCRIT (test code = 46.2 % 40.0-51.0 38200-5) MEAN CORPUSCULAR VOLUME 90.1 fL 80.0-99.0 (test code = 85589-9) MEAN CORPUSCULAR 30.6 PG 25.0-33.0 HEMOGLOBIN (test code = 69015-5) MEAN CORPUSCULAR See_Comment [Automated message] HEMOGLOBIN CONC (test The sy stem which code = 30116-4) generated th is result transmitted ref erence range: 31.0 - 3 6.0 G/DL. The refer ence range was not u sed to interpret this result as normal/abnor mal. RED CELL DISTRIBUTION 14.5 % 11.5-15.0 WIDTH (test code = 36417-8) NEUTROPHILS % (test code 62 % = 98715-1) LYMPHOCYTES % (test code 29 % = 19882-7) MONOCYTES % (test code = 6 % 43885-9) EOSINOPHILS % (test code 3 % = 80077-9) BASOPHILS % (test code = 0 % 26629-9) PLATELET COUNT (test See_Comment TESTIN G PERFORMED AT code = 20102-4) CLINICAL PAT [facility] [place] [address], [address] [place] [address] CLIA NO. [id number] [Aut omated message] The sy stem which generated this result transmit thierry reference range : 130 - 400 K/UL. The reference range was not used to int erpret this result as normal/abnormal . NEUTROPHILS ABSOLUTE See_Comment [Autom ated message] COUNT (test code = The syste m which 42570-3) generated this result transmitted ref erence range: 1.50 - 7 .50 K/UL. The refer ence range was not u sed to interpret this result as normal/abnor mal. LYMPHOCYTES ABSOLUTE See_Comment [Autom ated message] COUNT (test code = The syste m which 26199-9) generated this result transmitted ref erence range: 1.00 - 4 .00 K/UL. The refer ence range was not u sed to interpret this result as normal/abnor mal. MONOCYTES ABSOLUTE COUNT See_Comment [A utomated message] (test code = 52394-4) The sy stem which generated this result transmitted ref erence range: 0.20 - 1 .00 K/UL. The refer ence range was not u sed to interpret this result as normal/abnor mal. BASOPHILS ABSOLUTE COUNT See_Comment Un less Otherwise (test code = 69096-2) Indica thierry, All Testing Performed At: [facility], [address] [facility] [place] [address] [facility] Director: María Avila M.D. CLIA Number [id number] Cap Accreditation N o. [id number] [Autom ated message] The sy stem which generated this result transmit thierry reference range : 0.00 - 0.20 K/UL. Th e reference range was not used to int erpret this result as normal/abnormal . [facility] [id number] 00:00:00 Test Item Value Reference Range Interpretation Comments COLOR UA (test code = 5778-6) Yellow YELLOW/STRAW CLARITY UA (test code = 21926-7) Cloudy CLEAR GLUCOSE UA (test code = 5792-7) Negative NEGATIVE BILIRUBIN UA (test code = 5770-3) Negative NEGATIVE KETONES UA (test code = 75398-8) Negative NEGATIVE SPECIFIC GRAVITY UA (test code = 1.005-1.035 5811-5) BLOOD UA (test code = 5794-3) Small 1+ NEGATIVE PH UA (test code = 5803-2) 5-9 PROTEIN UA (test code = 5804-0) Negative NEGATIVE UROBILINOGEN UA (test code = 0.02 E.U/DL NORMAL MG/DL 5818-0) LEUKOCYTE ESTERASE UA (test code MOD NEGATIVE = 5799-2) NITRITE UA (test code = 5802-4) 1+ NEGATIVE REDUCING SUBSTANCES URINE (test code = 59262-1) [facility], [facility] (MIN 4 VIEWS)2018-04-12 10:47:00Reason for exam:->LEG PAINReason for exam:->BACK PAINReason for exam:->HIP PAINFINAL REPORT CLINICAL HISTORY: LEG PAINBACK PAINHIP PAIN TECHNIQUE: Five views of the lumbar spine. 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 There isno evidence for lumbar fracture or dislocation. There are multiple abdominal pelvic surgical clips. Signed: Tish Tena MDReport Verified Date/Time: 04/12/2018 10:47:57 Reading Location: [facility] Radiology Reading Room RAD, HIP, 2 VIEWS, [id number] 10:42:00Reason for exam:->LEG PAINReason for exam:->BACK PAINReason for exam:->HIP PAINFINAL REPORT CLINICAL HISTORY: LEG PAINBACK PAINHIP PAIN TECHNIQUE: 2 views of the right hip COMPARISON: None IMPRESSION: There are degenerative changes of the right hip without evidence of fracture or dislocation. Signed: Tish Tena MDReport Verified Date/Time: 04/12/2018 10:42:38 Reading Location: [facility] Radiology Reading Room URINALYSIS W/ [id number] 10:24:00 Test Item Value Reference Range Interpretation Comments COLOR (BEAKER) (test code Light Yellow = 470) CLARITY (BEAKER) (test Clear code = 469) SPECIFIC GRAVITY UA 1.008 1.001-1.035 (BEAKER) (test code = 468) PH UA (BEAKER) (test code 6.5 5.0-8.0 = 467) PROTEIN UA (BEAKER) (test Negative Negative code = 464) GLUCOSE UA (BEAKER) (test Negative Negative code = 365) KETONES UA (BEAKER) (test Negative Negative code = 371) BILIRUBIN UA (BEAKER) Negative Negative (test code = 462) BLOOD UA (BEAKER) (test Trace Negative A code = 461) NITRITE UA (BEAKER) (test Negative Negative code = 465) LEUKOCYTE ESTERASE UA Moderate Negative A (BEAKER) (test code = 466) UROBILINOGEN UA (BEAKER) 0.2 mg/dL 0.2-1.0 (test code = 463) RBC UA (BEAKER) (test code 4 /HPF = 519) WBC UA (BEAKER) (test code 34 /HPF = 520) BACTERIA (BEAKER) (test Moderate code = 517) MUCUS (BEAKER) (test code Rare = 1574) SOURCE(BEAKER) (test code Urine, Clean Catch = 2795) BASIC METABOLIC [id number] 10:05:00 Test Item Value Reference Range Interpretation [...] TO CALCULA TE ESTIMATED GFR. HEPATIC FUNCTION [id number] 09:44:00 Test Item Value Reference Range Interpretation [...] 347) hemolyzed CBC W/PLT COUNT & AUTO [id number] 09:27:00 Test Item Value Reference Range Interpretation [...] 0-1 PERCENT (BEAKER) (test code = 2801) [id number] 06:07:00 Test Item Value Reference Range Interpretation Comments PHOSPHORUS (BEAKER) (test code = 2.9 mg/dL 2.3-4.7 604) [id number] 06:07:00 Test Item Value Reference Range Interpretation Comments MAGNESIUM (BEAKER) (test code = 2.0 mg/dL 1.6-2.6 627) BASIC METABOLIC [id number] 06:07:00 Test Item Value Reference Range Interpretation [...] 697) EGFR (BEAKER) (test 68 mL/min/1.73 ESTIMA THIERRY GFR IS code = 1092) sq m [...] 0-0 (BEAKER) (test code = 413) POCT-GLUCOSE [id number] 08:10:00 Test Item Value Reference Range Interpretation Comments POC-GLUCOSE METER 109 mg/dL 70-110 TESTED AT [facility] [address] (BEAKER) (test code = [place] [address]) [address] [id number] 05:39:00 Test Item Value Reference Range Interpretation Comments PHOSPHORUS (BEAKER) (test code = 3.2 mg/dL 2.3-4.7 604) [id number] 05:39:00 Test Item Value Reference Range Interpretation Comments MAGNESIUM (BEAKER) (test code = 2.1 mg/dL 1.6-2.6 627) BASIC METABOLIC [id number] 05:39:00 Test Item Value Reference Range Interpretation [...] 697) EGFR (BEAKER) (test 66 mL/min/1.73 ESTIMA THIERRY GFR IS code = 1092) sq m [...] 0-0 (BEAKER) (test code = 413) POCT-GLUCOSE [id number] 21:31:00 Test Item Value Reference Range Interpretation Comments POC-GLUCOSE METER 136 mg/dL 70-110 H TESTED AT [facility] [address] (BEAKER) (test code = [place] [address]) [address] [id number] 03:49:00 Test Item Value Reference Range Interpretation Comments PHOSPHORUS (BEAKER) (test code = 4.2 mg/dL 2.3-4.7 604) [id number] 03:49:00 Test Item Value Reference Range Interpretation Comments MAGNESIUM (BEAKER) (test code = 2.0 mg/dL 1.6-2.6 627) BASIC METABOLIC [id number] 03:49:00 Test Item Value Reference Range Interpretation [...] 697) EGFR (BEAKER) (test 66 mL/min/1.73 ESTIMA THIERRY GFR IS code = 1092) sq m [...] WBC 0-0 (BEAKER) (test code = 413) [id number] 15:06:00 Test Item Value Reference Range Interpretation Comments PARTIAL THROMBOPLASTIN TIME 31.2 seconds 22.5-36.0 (BEAKER) (test code = 760) BASIC METABOLIC [id number] 15:05:00 Test Item Value Reference Range Interpretation [...] 697) EGFR (BEAKER) (test 58 mL/min/1.73 ESTIMA THIERRY GFR IS code = 1092) sq m [...] L code = 756) MEAN PLATELET VOLUME (AKER) 10.1 fL 9.4-12.4 (test code = 754) NUCLEATED RED BLOOD CELLS 0 /100 WBC 0-0 ([facility]) (test code = 413) [id number] 12:59:00 Test Item Value Reference Range Interpretation Comments ACTIVATED CLOTTING TIME 120 sec TEST ED AT [place] [address] ([facility]) (test code = [place] [address]) [address] [id number] 12:59:00 Test Item Value Reference Range Interpretation Comments ACTIVATED CLOTTING TIME 230 sec TEST ED AT [place] [address] ([facility]) (test code = [place] [address]) [address] [id number] 12:59:00 Test Item Value Reference Range Interpretation Comments ACTIVATED CLOTTING TIME 257 sec TEST ED AT [place] [address] ([facility]) (test code = [place] [address]) [address] [id number] 12:59:00 Test Item Value Reference Range Interpretation Comments ACTIVATED CLOTTING TIME 246 sec TEST ED AT [place] [address] ([facility]) (test code = [place] [address]) [address] [id number] 12:59:00 Test Item Value Reference Range Interpretation Comments ACTIVATED CLOTTING TIME 263 sec TEST ED AT [place] [address] ([facility]) (test code = [place] [address]) [address] [id number] 12:59:00 Test Item Value Reference Range Interpretation Comments ACTIVATED CLOTTING TIME 263 sec TEST ED AT [place] [address] ([facility]) (test code = [place] [address]) [address] BLOOD GAS, [id number] 11:14:00 Test Item Value Reference Range Interpretation [...] (test code = 1819) 55.0 % GLUCOSE-STAT [id number] 11:13:00 Test Item Value Reference Range Interpretation Comments GLUCOSE RANDOM (BEAKER) (test code 104 mg/dL 70-110 = 652) SODIUM NA-STAT [id number] 11:13:00 Test Item Value Reference Range Interpretation Comments SODIUM (BEAKER) (test code = 381) 137 meq/L 135-148 POTASSIUM-STAT [id number] 11:13:00 Test Item Value Reference Range Interpretation Comments POTASSIUM (BEAKER) (test code = 4.2 meq/L 3.6-5.5 379) HGB/HCT (H&H) - STAT [id number] 11:13:00 Test Item Value Reference Range Interpretation Comments HEMOGLOBIN (BEAKER) (test code = 14.1 g/dL 13.0-16.8 410) HEMATOCRIT (BEAKER) (test code = 41.0 % 40.0-50.0 411) CALCIUM, [id number] 11:13:00 Test Item Value Reference Range Interpretation Comments CALCIUM IONIZED (BEAKER) (test 1.12 mmol/L 1.12-1.27 code = 698) PH, BLOOD (BEAKER) (test code = 7.40 1810) GLUCOSE-STAT [id number] 10:14:00 Test Item Value Reference Range Interpretation Comments GLUCOSE RANDOM (BEAKER) (test code 105 mg/dL 70-110 = 652) SODIUM NA-STAT [id number] 10:14:00 Test Item Value Reference Range Interpretation Comments SODIUM (BEAKER) (test code = 381) 135 meq/L 135-148 POTASSIUM-STAT [id number] 10:14:00 Test Item Value Reference Range Interpretation Comments POTASSIUM (BEAKER) (test code = 4.4 meq/L 3.6-5.5 379) HGB/HCT (H&H) - STAT [id number] 10:14:00 Test Item Value Reference Range Interpretation Comments HEMOGLOBIN (BEAKER) (test code = 14.5 g/dL 13.0-16.8 410) HEMATOCRIT (BEAKER) (test code = 43.0 % 40.0-50.0 411) CALCIUM, [id number] 10:14:00 Test Item Value Reference Range Interpretation Comments CALCIUM IONIZED (BEAKER) (test 1.18 mmol/L 1.12-1.27 code = 698) PH, BLOOD (BEAKER) (test code = 7.34 1810) BLOOD GAS, [id number] 10:14:00 Test Item Value Reference Range Interpretation [...] code = 1819) 70.0 % SODIUM NA-STAT [id number] 08:32:00 Test Item Value Reference Range Interpretation Comments SODIUM (BEAKER) (test code = 381) 134 meq/L 135-148 L CALCIUM, [id number] 08:31:00 Test Item Value Reference Range Interpretation Comments CALCIUM IONIZED (BEAKER) (test 1.07 mmol/L 1.12-1.27 L code = 698) PH, BLOOD (BEAKER) (test code = 7.33 1810) BLOOD GAS, [id number] 08:31:00 Test Item Value Reference Range Interpretation [...] (test code = 1819) 60.0 % GLUCOSE-STAT [id number] 08:30:00 Test Item Value Reference Range Interpretation Comments GLUCOSE RANDOM (BEAKER) (test code = 97 mg/dL 70-110 652) POTASSIUM-STAT [id number] 08:30:00 Test Item Value Reference Range Interpretation Comments POTASSIUM (BEAKER) (test code = 4.6 meq/L 3.6-5.5 379) HGB/HCT (H&H) - STAT 08:30:00 Test Item Value Reference Range Interpretation Comments HEMOGLOBIN (BEAKER) (test code = 15.0 g/dL 13.0-16.8 410) HEMATOCRIT (BEAKER) (test code = 44.0 % 40.0-50.0 411) [id number] 07:27:00 Test Item Value Reference Range Interpretation Comments BLOOD UREA NITROGEN (BEAKER) (test 49 mg/dL 7-21 H code = 354) PROTHROMBIN [id number] 06:48:00 Test Item Value Reference Range Interpretation Comments PROTIME (BEAKER) (test code = 14.3 seconds 11.7-14.7 759) INR (BEAKER) (test code = 370) 1.1 <=5.9 RECOMMENDED COUMADIN/WARFARIN INR THERAPY RANGESSTANDARD DOSE: 2.0 - 3.0 Includes: PROPHYLAXIS for venous thrombosis, systemic embolization; TREATMENT for venous thrombosis and/or pulmonary embolus.HIGH RISK: Target INR is 2.5-3.5 for patients with mechanical heart valves.CBC W/PLT COUNT & AUTO [id number] 06:42:00 Test Item Value Reference Range Interpretation [...] 0-1 PERCENT (BEAKER) (test code = 2801) [id number] 11:22:00 Test Item Value Reference Range Interpretation Comments SODIUM (BEAKER) (test 139 meq/L 136-145 code = 381) POTASSIUM (BEAKER) 4.9 meq/L 3.5-5.1 Specimen slightly (test code = 379) hemolyzed CHLORIDE (BEAKER) 108 meq/L 98-107 H (test code = 382) CO2 (BEAKER) (test 22 meq/L 22-29 code = 355) [id number] 11:22:00 Test Item Value Reference Range Interpretation Comments GLUCOSE RANDOM (BEAKER) (test code 102 mg/dL 70-105 = 652) BUN AND [id number] 11:22:00 Test Item Value Reference Range Interpretation Comments BLOOD UREA NITROGEN 55 mg/dL 7-21 H (BEAKER) (test code = 354) CREATININE (BEAKER) 1.29 mg/dL 0.57-1.25 H Specimen slightly (test code = 358) hemolyzed EGFR (BEAKER) (test 54 mL/min/1.73 ESTIMA THIERRY GFR IS code = 1092) sq m NOT ACCURATE CREATININE CLEARANCE IN PREDICTING GLOMERULAR FILTRATION RATE . ESTIMATED GFR I S NOT APPLICABLE FOR DIALYSIS PATIEN TS. [id number] 08:56:00 Test Item Value Reference Range Interpretation Comments HEMOGLOBIN (BEAKER) (test code = 15.9 GM/DL 13.7-17.5 410) BASIC METABOLIC [id number] 01:34:00 Test Item Value Reference Range Interpretation [...] 697) EGFR (BEAKER) (test 63 mL/min/1.73 ESTIMA THIERRY GFR IS code = 1092) sq m NOT ACCURATE CREATININE CLEARANCE IN PREDICTING GLOMERULAR FILTRATION RATE . ESTIMATED GFR I S NOT APPLICABLE FOR DIALYSIS PATIEN TS. [id number] 01:32:00 Test Item Value Reference Range Interpretation Comments PARTIAL THROMBOPLASTIN TIME 69.3 seconds 22.5-36.0 H (BEAKER) (test code = 760) CBC W/PLT COUNT & AUTO [id number] 01:23:00 Test Item Value Reference Range Interpretation [...] 0-1 PERCENT (BEAKER) (test code = 2801) [id number] 04:46:00 Test Item Value Reference Range Interpretation Comments PROTIME (BEAKER) (test code = 14.2 seconds 11.7-14.7 759) INR (BEAKER) (test code = 370) 1.1 <=5.9 PARTIAL THROMBOPLASTIN TIME 27.9 seconds 22.5-36.0 (BEAKER) (test code = 760) RECOMMENDED COUMADIN/WARFARIN INR THERAPY RANGESSTANDARD DOSE: 2.0 - 3.0 Includes: PROPHYLAXIS for venous thrombosis, systemic embolization; TREATMENT for venous thrombosis and/or pulmonary embolus.HIGH RISK: Target INR is 2.5-3.5 for patients with mechanical heart valves.BASIC METABOLIC [id number] 02:31:00 Test Item Value Reference Range Interpretation [...] 697) EGFR (BEAKER) (test 53 mL/min/1.73 ESTIMA THIERRY GFR IS code = 1092) sq m NOT ACCURATE CREATININE CLEARANCE IN PREDICTING GLOMERULAR FILTRATION RATE . ESTIMATED GFR I S NOT APPLICABLE FOR DIALYSIS PATIEN TS. CBC W/PLT COUNT & AUTO [id number] 02:17:00 Test Item Value Reference Range Interpretation [...] = 2801) CBC W/PLT COUNT & AUTO [id number] 07:53:00 Test Item Value Reference Range Interpretation [...] 46 pg/mL 0-100 (test code = 700) [id number] 07:22:00 Test Item Value Reference Range Interpretation Comments PHOSPHORUS (BEAKER) (test code = 2.8 mg/dL 2.3-4.7 604) [id number] 07:22:00 Test Item Value Reference Range Interpretation Comments MAGNESIUM (BEAKER) (test code = 1.9 mg/dL 1.6-2.6 627) BASIC METABOLIC [id number] 07:22:00 Test Item Value Reference Range Interpretation [...] 697) EGFR (BEAKER) (test 62 mL/min/1.73 ESTIMA THIERRY GFR IS code = 1092) sq m NOT ACCURATE CREATININE CLEARANCE IN PREDICTING GLOMERULAR FILTRATION RATE . ESTIMATED GFR I S NOT APPLICABLE FOR DIALYSIS PATIEN TS. CALCIUM, [id number] 07:05:00 Test Item Value Reference Range Interpretation Comments CALCIUM IONIZED (BEAKER) (test 0.90 mmol/L 1.12-1.27 L code = 698) PH, BLOOD (BEAKER) (test code = 7.42 1810) CBC W/PLT COUNT & AUTO [id number] 08:13:00 Test Item Value Reference Range Interpretation [...] (BEAKER) (test code = 413) 0.00BASIC METABOLIC [id number] 06:38:00 Test Item Value Reference Range Interpretation [...] 697) EGFR (BEAKER) (test 45 mL/min/1.73 ESTIMA THIERRY GFR IS code = 1092) sq m NOT ACCURATE CREATININE CLEARANCE IN PREDICTING GLOMERULAR FILTRATION RATE . ESTIMATED GFR I S NOT APPLICABLE FOR DIALYSIS PATIEN TS. CREATINE KINASE (CK)2017-01-30 06:38:00 Test Item Value Reference Range Interpretation Comments CREATINE KINASE TOTAL (BEAKER) (test 65 U/L 29-200 code = 380) [id number] 06:37:00 Test Item Value Reference Range Interpretation Comments PHOSPHORUS (BEAKER) (test code = 3.8 mg/dL 2.3-4.7 604) [id number] 06:37:00 Test Item Value Reference Range Interpretation Comments MAGNESIUM (BEAKER) (test code = 2.1 mg/dL 1.6-2.6 627) B-TYPE NATRIURETIC FACTOR (BNP)2017-01-30 06:28:00 Test Item Value Reference Range Interpretation Comments B-TYPE NATRIURETIC PEPTIDE (BEAKER) 36 pg/mL 0-100 (test code = 700) [id number] 06:16:00 Test Item Value Reference Range Interpretation Comments PARTIAL THROMBOPLASTIN TIME 152.1 seconds 22.5-36.0 HH (BEAKER) (test code = 760) CALCIUM, [id number] 06:12:00 Test Item Value Reference Range Interpretation Comments CALCIUM IONIZED (BEAKER) (test 1.09 mmol/L 1.12-1.27 L code = 698) PH, BLOOD (BEAKER) (test code = 7.25 1810) [id number] 23:50:00 Test Item Value Reference Range Interpretation Comments PARTIAL THROMBOPLASTIN TIME 87.0 seconds 22.5-36.0 H (BEAKER) (test code = 760) [id number] 15:04:00 Test Item Value Reference Range Interpretation Comments PARTIAL THROMBOPLASTIN TIME 43.2 seconds 22.5-36.0 H (BEAKER) (test code = 760) [id number] 12:41:00 Test Item Value Reference Range Interpretation Comments PARTIAL THROMBOPLASTIN TIME 192.4 seconds 22.5-36.0 HH (BEAKER) (test code = 760) Prior to initiating heparinPLATELET [id number] 12:21:00 Test Item Value Reference Range Interpretation Comments PLATELET COUNT (BEAKER) (test 155 K/CU MM 150-430 code = 756) BASIC METABOLIC [id number] 09:42:00 Test Item Value Reference Range Interpretation [...] 697) EGFR (BEAKER) (test 54 mL/min/1.73 ESTIMA THIERRY GFR IS code = 1092) sq m NOT ACCURATE CREATININE CLEARANCE IN PREDICTING GLOMERULAR FILTRATION RATE . ESTIMATED GFR I S NOT APPLICABLE FOR DIALYSIS PATIEN TS. [id number] 09:30:00 Test Item Value Reference Range Interpretation Comments PROTIME (BEAKER) (test code = 15.0 seconds 11.7-14.7 H 759) INR (BEAKER) (test code = 370) 1.2 <=5.9 PARTIAL THROMBOPLASTIN TIME 29.6 seconds 22.5-36.0 (BEAKER) (test code = 760) RECOMMENDED COUMADIN/WARFARIN INR THERAPY RANGESSTANDARD DOSE: 2.0 - 3.0 Includes: PROPHYLAXIS for venous thrombosis, systemic embolization; TREATMENT for venous thrombosis and/or pulmonary embolus.HIGH RISK: Target INR is 2.5-3.5 for patients with mechanical heart valves.CBC W/PLT COUNT & AUTO [id number] 09:26:00 Test Item Value Reference Range Interpretation [...] K/ L 0.00-0.20 (test code = 417) [id number] 18:10:00 Test Item Value Reference Range Interpretation Comments ACTIVATED CLOTTING TIME 202 sec TEST ED AT [facility] [address] (BEAKER) (test code = [place] [address]) [address] BLOOD [id number] 00:00:00 Test Item Value Reference Range Interpretation Comments CULTURE (BEAKER) (test No growth in 5 days code = 1095) URINE [id number] 11:38:00 Test Item Value Reference Range Interpretation Comments CULTURE (BEAKER) (test code = 1095) No growth [id number] 07:05:00 Test Item Value Reference Range Interpretation Comments PHOSPHORUS (BEAKER) (test code = 3.2 mg/dL 2.3-4.7 604) [id number] 07:05:00 Test Item Value Reference Range Interpretation Comments MAGNESIUM (BEAKER) (test code = 2.3 mg/dL 1.6-2.6 627) COMPREHENSIVE METABOLIC [id number] 07:05:00 Test Item Value Reference Range Interpretation [...] 347) EGFR (BEAKER) (test 53 mL/min/1.73 ESTIMA THIERRY GFR IS code = 1092) sq m NOT ACCURATE CREATININE CLEARANCE IN PREDICTING GLOMERULAR FILTRATION RATE . ESTIMATED GFR I S NOT APPLICABLE FOR DIALYSIS PATIEN TS. CALCIUM, [id number] 06:43:00 Test Item Value Reference Range Interpretation Comments CALCIUM IONIZED (BEAKER) (test 1.08 mmol/L 1.12-1.27 L code = 698) PH, BLOOD (BEAKER) (test code = 7.35 1810) CBC W/PLT COUNT & AUTO [id number] 06:36:00 Test Item Value Reference Range Interpretation [...] K/ L 0.00-0.20 (test code = 417) [id number] 05:54:00 Test Item Value Reference Range Interpretation Comments PHOSPHORUS (BEAKER) (test code = 3.8 mg/dL 2.3-4.7 604) [id number] 05:54:00 Test Item Value Reference Range Interpretation Comments MAGNESIUM (BEAKER) (test code = 2.5 mg/dL 1.6-2.6 627) BASIC METABOLIC [id number] 05:54:00 Test Item Value Reference Range Interpretation [...] 697) EGFR (BEAKER) (test 52 mL/min/1.73 ESTIMA THIERRY GFR IS code = 1092) sq m NOT ACCURATE CREATININE CLEARANCE IN PREDICTING GLOMERULAR FILTRATION RATE . ESTIMATED GFR I S NOT APPLICABLE FOR DIALYSIS PATIEN TS. CREATINE KINASE (CK)2017-01-17 05:54:00 Test Item Value Reference Range Interpretation Comments CREATINE KINASE TOTAL (BEAKER) (test 89 U/L 29-200 code = 380) CALCIUM, [id number] 05:29:00 Test Item Value Reference Range Interpretation Comments CALCIUM IONIZED (BEAKER) (test 1.02 mmol/L 1.12-1.27 L code = 698) PH, BLOOD (BEAKER) (test code = 7.33 1810) EOSINOPHIL SMEAR, [id number] 16:25:00 Test Item Value Reference Range Interpretation Comments EOSINOPHIL SMEAR, URINE Rare EOS =less than No EOS seen A (BEAKER) (test code = 5% WBCs seen are EOS 1851) BASIC METABOLIC [id number] 16:09:00 Test Item Value Reference Range Interpretation [...] 697) EGFR (BEAKER) (test 43 mL/min/1.73 ESTIMA THIERRY GFR IS code = 1092) sq m NOT ACCURATE CREATININE CLEARANCE IN PREDICTING GLOMERULAR FILTRATION RATE . ESTIMATED GFR I S NOT APPLICABLE FOR DIALYSIS PATIEN TS. OSMOLALITY, [id number] 13:18:00 Test Item Value Reference Range Interpretation Comments OSMOLALITY URINE (BEAKER) (test 379 mOsm/kg 40-1400 code = 614) HEMOGLOBIN [id number] 09:05:00 Test Item Value Reference Range Interpretation Comments HEMOGLOBIN A1C (BEAKER) (test code = 5.8 % 4.3-6.1 368) CBC W/PLT COUNT & AUTO [id number] 07:12:00 Test Item Value Reference Range Interpretation [...] 0.00-0.20 (test code = 417) 0.00BASI METABOLIC [id number] 06:43:00 Test Item Value Reference Range Interpretation [...] 697) EGFR (BEAKER) (test 47 mL/min/1.73 ESTIMA THIERRY GFR IS code = 1092) sq m NOT ACCURATE CREATININE CLEARANCE IN PREDICTING GLOMERULAR FILTRATION RATE . ESTIMATED GFR I S NOT APPLICABLE FOR DIALYSIS PATIEN TS. URINALYSIS W/ [id number] 03:12:00 Test Item Value Reference Range Interpretation [...] 1574) SOURCE(BEAKER) (test code = Urine, Voided 6815) CHLORIDE, RANDOM [id number] 01:29:00 Test Item Value Reference Range Interpretation Comments CHLORIDE URINE (BEAKER) (test code = 62 meq/L 682) Reference Range: No NormalsCREATININE, RANDOM [id number] 01:29:00 Test Item Value Reference Range Interpretation Comments CREATININE URINE (BEAKER) (test 49.9 mg/dL code = 375) Reference Range: No NormalsPOTASSIUM, RANDOM [id number] 01:29:00 Test Item Value Reference Range Interpretation Comments POTASSIUM URINE (BEAKER) (test 18.3 meq/L code = 195) Reference Range: No NormalsSODIUM, RANDOM [id number] 01:29:00 Test Item Value Reference Range Interpretation Comments SODIUM URINE (BEAKER) (test code = 73 meq/L 243) Reference Range: No NormalsSEDIMENTATION [id number] 21:30:00 Test Item Value Reference Range Interpretation Comments SEDIMENTATION RATE, ERYTHROCYTE 10 mm/HR 0-40 (BEAKER) (test code = 766) C-REACTIVE [id number] 20:44:00 Test Item Value Reference Range Interpretation Comments C-REACTIVE PROTEIN (BEAKER) (test 0.11 mg/dL 0.00-0.50 code = 676) BASIC METABOLIC [id number] 15:53:00 Test Item Value Reference Range Interpretation [...] 697) EGFR (BEAKER) (test 41 mL/min/1.73 ESTIMA THIERRY GFR IS code = 1092) sq m NOT ACCURATE CREATININE CLEARANCE IN PREDICTING GLOMERULAR FILTRATION RATE . ESTIMATED GFR I S NOT APPLICABLE FOR DIALYSIS PATIEN TS. CBC W/PLT COUNT & AUTO [id number] 15:45:00 Test Item Value Reference Range Interpretation [...]
[2022-07-19] MEDS ORDERED: ASPIRIN 81 MG CHEWABLE TABLET ONE (15:15)
[2022-07-19] MEDS ORDERED: ACETAMINOPHEN 325 MG TABLET ONE (15:15)
[2022-07-19 15:57] LABS: Absolute Lymphocytes (CBC) 0.7 K/uL (0.7-4.9); Hematocrit 47.7 % (39.6-49.0); Lymphocytes % 11.7 % (15.3-44.8); MCV 90.2 fL (80-100); MPV 8.3 fL (7.6-11.3); RBC Red Blood Cell Count 5.29 M/uL (4.33-5.43)
[2022-07-19 16:00] LABS: Protime INR 1.15
--- NOTE | 2022-07-19 16:00 | RAD REPORT ---
EXAM DESCRIPTION: RAD - Chest Single View - 07/19/2022 3:48 pm CLINICAL HISTORY: COUGH COMPARISON: Chest Single View dated 07/11/2020; Chest Single View dated 07/06/2020; Chest Pa And Lat (2 Views) dated 05/26/2019; Chest Single View dated 01/16/2019 FINDINGS: Lines: None. Lungs: Low lung volumes. Increased interstitial markings bilaterally. No evidence of a consolidative pneumonia. Pleural: No significant pleural effusions or pneumothorax. Cardiac: Cardiomegaly. Mediastinum: Within normal limits. Bones: No acute fractures. Other: None IMPRESSION: Low lung volumes with some coarsening of the interstitium. Difficult to exclude a mild i nfectious or inflammatory process but no consolidative pneumonia or edema
[2022-07-19 16:07] LABS: SARS-COV-2 RT PCR NEGATIVE (NEGATIVE)
[2022-07-19 16:09] LABS: Albumin 3.8 g/dL (3.4-5.0); Potassium 4.6 mmol/L (3.5-5.1); Protein, Total 7.9 g/dL (6.4-8.2)
--- NOTE | 2022-07-19 16:26 | EDPHYS ---
Physician Documentation [facility] Name: Lisandro Livingston Age: 82 yrs Sex: Male : 1940 Arrival Date: 07/19/2022 Time: 14:25 Bed 2 Private MD: ED Physician Mikal Jenkins HPI: 07/19 17:11 This 82 yrs old Male presents to ER via Wheelchair with complaints of Flu snw Symptoms. 17:11 The patient reports fever, not measured (subjective). Onset: The symptoms/episode snw began/occurred suddenly, 3 day(s) ago, and became worse and became persistent. Modifying factors: The patient has been noncompliant with prescribed medications doesn't want to be compliant. Associated signs and symptoms: Pertinent positives: cough, with green sputum, weakness. Severity of symptoms: At their worst the symptoms were moderate in the emergency department the symptoms are unchanged. It is unknown whether or not the patient has had similar symptoms in the past. The patient has not recently seen a physician. Historical: - Allergies: 14:48 NKDA; kb3 - Home Meds: 14:48 Pt is not compliant with medications [Active]; kb3 - PMHx: 14:48 Bladder cancer; Hypertension; Cancer; Prostate CA; Kidney CA; Covid; kb3 - PSHx: 14:48 bladder reconstruction; kb3 - Immunization history:: Adult Immunizations unknown, Client reports receiving the 2nd dose of the Covid vaccine, Last tetanus immunization: unknown. - Social history:: Smoking status: Patient denies any tobacco usage or history of. ROS: 15:33 Eyes: Negative for injury, pain, redness, and discharge, ENT: Negative for injury, snw pain, and discharge, Neck: Negative for injury, pain, and swelling, Cardiovascular: Negative for chest pain, palpitations, and edema. 15:33 Abdomen/GI: Negative for abdominal pain, nausea, vomiting, diarrhea, and constipation, Back: Negative for injury and pain, : Negative for injury, bleeding, discharge, and swelling, MS/Extremity: Negative for injury and deformity, Skin: Negative for injury, rash, and discoloration. 15:33 Constitutional: Positive for body aches, fever, malaise. 15:33 Respiratory: Positive for cough, with green sputum, shortness of breath. 15:33 Neuro: Positive for weakness. Exam: 15:31 Head/Face: Normocephalic, atraumatic. Eyes: Pupils equal round and reactive to light, snw extra-ocular motions intact. Lids and lashes normal. Conjunctiva and sclera are non-icteric and not injected. Cornea within normal limits. Periorbital areas with no swelling, redness, or edema. 15:31 Neck: Trachea midline, no thyromegaly or masses palpated, and no cervical lymphadenopathy. Supple, full range of motion without nuchal rigidity, or vertebral point tenderness. No Meningismus. Chest/axilla: Normal chest wall appearance and motion. Nontender with no deformity. No lesions are appreciated. 15:31 Abdomen/GI: Soft, non-tender, with normal bowel sounds. No distension or tympany. No guarding or rebound. No evidence of tenderness throughout. Back: No spinal tenderness. No costovertebral tenderness. Full range of motion. 15:31 MS/ Extremity: Pulses equal, no cyanosis. Neurovascular intact. Full, normal range of motion. 15:31 Constitutional: The patient appears awake, febrile, frail, listless. 15:31 ENT: Mouth: Oral mucosa: dry. 15:31 Cardiovascular: Rate: normal, Rhythm: regular, Heart sounds: normal. 15:31 Respiratory: the patient does not display signs of respiratory distress, Respirations: shallow respirations, that is mild, Breath sounds: decreased breath sounds, that are moderate. 15:31 Skin: Appearance: Color: dusky. 15:31 Neuro: Orientation: is normal, Motor: generalized weakness. Vital Signs: 14:46 BP 136 / 86; Pulse 91; Resp 20; Temp 100.5; Pulse Ox 95% ; Weight 77.11 kg; Height 5 kb3 ft. 4 in. (162.56 cm); Pain 8/10; 15:02 BP 96 / 46; Pulse 85; Resp 32; Temp 102.7(O); Pulse Ox 100% on R/A; mm9 17:03 BP 93 / 56; Pulse 86; Resp 27; Temp 101.5; Pulse Ox 96% on R/A; ph 17:42 BP 97 / 59; Pulse 72; Resp 22; Temp 100.7(C); Pulse Ox 97% on R/A; ph 18:56 BP 100 / 61; Pulse 78; Resp 18; Temp 99.5; Pulse Ox 97% on R/A; ph 19:15 BP 112 / 60; Pulse 66; Resp 19; Pulse Ox 98% on R/A; jb4 20:00 BP 111 / 50; Pulse 64; Resp 20; Temp 99.3(C); Pulse Ox 98% on R/A; jb4 14:46 Body Mass Index 29.18 (77.11 kg, 162.56 cm) kb3 MDM: 14:47 Patient medically screened. snw 16:16 Data reviewed: vital signs, nurses notes. Data interpreted: Pulse oximetry: on room air snw is 100 %. Interpretation: normal. Counseling: I had a detailed discussion with the patient and/or guardian regarding: the historical points, exam findings, and any diagnostic results supporting the discharge/admit diagnosis, lab results, radiology results, the need for further work-up and treatment in the hospital. 16:16 ED course: fever +possible source +hypotension. Criteria for severe sepsis met. Will snw not give IVF bolus 2nd to hyponatremia. Zosyn started post collection of second blood culture. 16:21 Post IV fluid administration reassessment for Sepsis: Client not prescribed the 30 snw mL/kg IVF due to: hyponatremia Sepsis focused reassessment complete. Peripheral pulse evaluation performed. Peripheral pulses noted to be 3+ normal. Neuro: not compliant with medications but answers questions. 07/19 14:47 Order name: COVID-19/FLU A+B/RSV; Complete Time: 16:12 snw 07/19 15:03 Order name: Blood Culture Adult (2) ph 07/19 15:03 Order name: CBC with Diff; Complete Time: 16:12 ph 07/19 15:03 Order name: CMP; Complete Time: 16:12 ph 07/19 15:03 Order name: Lactate w/ 2H reflex if indic.; Complete Time: 16:31 ph 07/19 15:03 Order name: Protime (+inr); Complete Time: 16:03 ph 07/19 15:03 Order name: Ptt, Activated; Complete Time: 16:03 ph 07/19 15:03 Order name: Urine Culture ph 07/19 15:03 Order name: Urine Microscopic Only; Complete Time: 17:11 ph 07/19 16:19 Order name: Osmolality, Serum; Complete Time: 17:32 snw 07/19 16:19 Order name: Urine Sodium Random; Complete Time: 17:11 snw 07/19 16:48 Order name: Urinalysis EDIA 07/19 16:50 Order name: CBC with Automated Diff EDMS 07/19 16:50 Order name: CBC with Automated Diff EDIA 07/19 15:03 Order name: Chest Single View XRAY; Complete Time: 16:03 ph 07/19 15:03 Order name: EKG; Complete Time: 15:04 ph 07/19 15:03 Order name: Accucheck; Complete Time: 15:18 ph 07/19 15:03 Order name: Cardiac monitoring; Complete Time: 15:18 ph 07/19 15:03 Order name: EKG - Nurse/Tech; Complete Time: 15:41 ph 07/19 15:03 Order name: IV Saline Lock - Large Bore; Complete Time: 15:41 ph 07/19 15:03 Order name: Labs collected and sent; Complete Time: 15:41 ph 07/19 15:03 Order name: O2 Per Protocol; Complete Time: 15:18 ph 07/19 16:50 Order name: Regular EDIA 07/19 16:50 Order name: Comprehensive Metabolic Panel EDIA 07/19 16:50 Order name: Comprehensive Metabolic Panel [facility] 07/19 16:55 Order name: Urine Dipstick-Ancillary; Complete Time: 16:56 EDMS 07/19 15:03 Order name: O2 Sat Monitoring; Complete Time: 15:18 ph 07/19 15:03 Order name: Urine Dipstick-Ancillary (obtain specimen); Complete Time: 17:03 ph 07/19 15:03 Order name: Vital Signs; Complete Time: 15:03 ph 07/19 16:18 Order name: Humphreys: criticore please; Complete Time: 17:03 snw 07/19 16:31 Order name: Recheck Vital Signs; Complete Time: 17:03 snw EC:05 Rate is 93 beats/min. Rhythm is irregular. QRS Byers is Normal. KS interval is snw prolonged. Clinical impression: Abnormal EKG without significant change and Sinus tachycardia. Administered Medications: 15:18 Drug: Aspirin 81 mg Route: PO; ph 17:42 Follow up: Response: No adverse reaction ph 15:18 Drug: Tylenol 650 mg Route: PO; ph 17:41 Follow up: Response: No adverse reaction ph 16:40 Drug: Zosyn (piperacillin-tazobactam) 3.375 grams Route: IVPB; Infused Over: 60 mins; ph Site: right antecubital; 17:42 Follow up: Response: No adverse reaction; IV Status: Completed infusion ph 16:40 Drug: NS 0.9% 1000 ml Route: IV; Rate: 75 ml/hr; Site: right antecubital; ph 17:42 Follow up: IV Status: Infusion continued upon admission ph Disposition: 07/20 07:03 Co-signature as Attending Physician, Mikal Jenkins MD. rn Disposition Summary: 07/19/22 16:25 Hospitalization Ordered Hospitalization Status: Inpatient Admission snw Provider: Javier Roldan snw Condition: Fair snw Problem: new snw Symptoms: are unchanged snw Bed/Room Type: Standard snw Location: Telemetry/MedSurg (Inpatient)(07/19/22 20:08) bb Room Assignment: [facility](07/19/22 20:08) bb Diagnosis - Severe sepsis without septic shock snw - Pneumonia, unspecified organism snw - Hypo-osmolality and hyponatremia snw Forms: - Medication Reconciliation Form snw - SBAR form snw Signatures: Dispatcher [employer] Zora Martell RN RN Gerri John FNP-C PROPERTY CARETAKER-Csnw Marcy Pack RN RN Mikal Harvey MD MD rn Hall, Patricia, RN RN ph Bradberry, Kelly, RN RN kb3 Corrections: (The following items were deleted from the chart) 07/19 14:52 14:48 Home Meds: amlodipine 2.5 mg tab 1 tab once daily; kb3 kb3 14:52 14:48 Home Meds: atorvastatin 40 mg Oral tab 1 tab once daily; kb3 kb3 14:52 14:48 Home Meds: citalopram 10 mg tab 1 tab once daily; kb3 kb3 14:52 14:48 Home Meds: tamsulosin 0.4 mg Oral cp24 1 cap once daily; kb3 kb3 14:52 14:48 Home Meds: Sodium Bicarbonate 10GR tab RIS Oral 3 tabs three times a day; kb3 kb3 19:09 16:25 Intensive Care Unit snw dw 19:09 16:25 snw dw :03 07: BR ER HOLD dw bb : ERHOLD- dw bb
--- NOTE | 2022-07-19 16:26 | ER ---
Nurse's Notes [facility] Name: Lisandro Livingston Age: 82 yrs Sex: Male : 1940 Arrival Date: 07/19/2022 Time: 14:25 Bed 2 Private MD: Diagnosis: Severe sepsis without septic shock;Pneumonia, unspecified organism;Hypo-osmolality and hyponatremia Presentation: 07/19 14:46 Chief complaint: Patient's son or daughter states: pt with fever, body aches, chills, kb3 cough, congestion, sore throat, weakness x2 days. Coronavirus screen: Vaccine status: Patient reports receiving the 2nd dose of the covid vaccine. Client denies travel out of the [place] in the last 14 days. Ebola Screen: Patient negative for fever greater than or equal to 101.5 degrees Fahrenheit, and additional compatible Ebola Virus Disease symptoms Patient denies exposure to infectious person. Patient denies travel to an Ebola-affected area in the 21 days before illness onset. Initial Sepsis Screen: Does the patient meet any 2 criteria? No. Patient's initial sepsis screen is negative. Does the patient have a suspected source of infection? No. Patient's initial sepsis screen is negative. Risk Assessment: Do you want to hurt yourself or someone else? Patient reports no desire to harm self or others. Onset of symptoms was July 17, 2022. 14:46 Method Of Arrival: Wheelchair kb3 14:46 Acuity: JUDIT 3 kb3 15:26 Acuity: JUDIT 2 ph Triage Assessment: 14:48 General: Appears ill, Behavior is calm, cooperative. Pain: Complains of pain in head, kb3 chest, right arm, left arm, right leg and left leg Pain does not radiate. Pain currently is 8 out of 10 on a pain scale. Quality of pain is described as aching. Historical: - Allergies: 14:48 NKDA; kb3 - Home Meds: 14:48 Pt is not compliant with medications [Active]; kb3 - PMHx: 14:48 Bladder cancer; Hypertension; Cancer; Prostate CA; Kidney CA; Covid; kb3 - PSHx: 14:48 bladder reconstruction; kb3 - Immunization history:: Adult Immunizations unknown, Client reports receiving the 2nd dose of the Covid vaccine, Last tetanus immunization: unknown. - Social history:: Smoking status: Patient denies any tobacco usage or history of. Screenin:19 [facility] ED Fall Risk Assessment (Adult) History of falling in the last 3 months, ph including since admission No falls in past 3 months (0 pts) Confusion or Disorientation No (0 pts) Intoxicated or Sedated No (0 pts) Impaired Gait Yes (1 pt) Mobility Assist Device Used Yes (1 pt) Altered Elimination Yes (1 pt) Score/Fall Risk Level 3 or more points = High Risk Oriented to surroundings, Maintained a safe environment, Offered frequent toileting (1:1 observation), Remained with patient while ambulating. Abuse screen: Denies threats or abuse. Has been threatened or abused. Nutritional screening: No deficits noted. Tuberculosis screening: No symptoms or risk factors identified. Assessment: 15:18 General: Appears in no apparent distress. Behavior is calm, cooperative, appropriate ph for age, Reports chills for fever for. Neuro: Level of Consciousness is awake, alert, obeys commands, Oriented to person, place, time, situation. Cardiovascular: Capillary refill < 3 seconds in bilateral fingers Patient's skin is warm and dry. Respiratory: Reports cough that is productive, Airway is patent Respiratory effort is even, unlabored, Respiratory pattern is regular, symmetrical. GI: No signs and/or symptoms were reported involving the gastrointestinal system. EENT: Reports nasal congestion nasal discharge. Derm: Skin is pink, warm \T\ dry. 19:00 Reassessment: Pt resting in bed with eyes closed, respirations are even an unlabored jb4 with no s/s of pain or distress noted. Family is at the bedside. 20:00 Reassessment: Patient appears in no apparent distress at this time. No changes from jb4 previously documented assessment. Patient and/or family updated on plan of care and expected duration. Pain level reassessed. 20:23 Reassessment: attempted to call report. instructed to wait for call back. jb4 20:39 Reassessment: report called to Isamar SALMERON for room 208. bb Vital Signs: 14:46 BP 136 / 86; Pulse 91; Resp 20; Temp 100.5; Pulse Ox 95% ; Weight 77.11 kg; Height 5 kb3 ft. 4 in. (162.56 cm); Pain 8/10; 15:02 BP 96 / 46; Pulse 85; Resp 32; Temp 102.7(O); Pulse Ox 100% on R/A; mm9 17:03 BP 93 / 56; Pulse 86; Resp 27; Temp 101.5; Pulse Ox 96% on R/A; ph 17:42 BP 97 / 59; Pulse 72; Resp 22; Temp 100.7(C); Pulse Ox 97% on R/A; ph 18:56 BP 100 / 61; Pulse 78; Resp 18; Temp 99.5; Pulse Ox 97% on R/A; ph 19:15 BP 112 / 60; Pulse 66; Resp 19; Pulse Ox 98% on R/A; jb4 20:00 BP 111 / 50; Pulse 64; Resp 20; Temp 99.3(C); Pulse Ox 98% on R/A; jb4 14:46 Body Mass Index 29.18 (77.11 kg, 162.56 cm) kb3 ED Course: 14:25 Patient arrived in ED. jj6 14:46 Gerri Escobar FNP-C [facility]. snw 14:47 Mikal Jenkins MD is Attending Physician. snw 14:48 Triage completed. kb3 14:48 Arm band placed on right wrist. Patient placed in an exam room, on a stretcher. kb3 14:56 Kiesha Quintero, RN is Primary Nurse. ph 15:04 Patient has correct armband on for positive identification. Placed in gown. Bed in low mm9 position. Call light in reach. Side rails up X2. Adult w/ patient. school bus monitor on. Pulse ox on. NIBP on. 15:41 Chest Single View XRAY Sent. mm9 15:41 Blood Culture Adult (2) Sent. mm9 15:41 CBC with Diff Sent. mm9 15:41 CMP Sent. mm9 15:41 Lactate w/ 2H reflex if indic. Sent. mm9 15:41 Protime (+inr) Sent. mm9 15:41 Ptt, Activated Sent. mm9 15:41 Initial lab(s) drawn, by mt, sent to lab. COVID swab sent to lab. Flu and/or RSV swab mm9 sent to lab. Inserted saline lock: 20 gauge in right antecubital area, using aseptic technique. 15:49 Chest Single View XRAY In Process Unspecified. EDMS 16:24 Javier Roldan MD is Hospitalizing Provider. snw Administered Medications: 15:18 Drug: Aspirin 81 mg Route: PO; ph 17:42 Follow up: Response: No adverse reaction ph 15:18 Drug: Tylenol 650 mg Route: PO; ph 17:41 Follow up: Response: No adverse reaction ph 16:40 Drug: Zosyn (piperacillin-tazobactam) 3.375 grams Route: IVPB; Infused Over: 60 mins; ph Site: right antecubital; 17:42 Follow up: Response: No adverse reaction; IV Status: Completed infusion ph 16:40 Drug: NS 0.9% 1000 ml Route: IV; Rate: 75 ml/hr; Site: right antecubital; ph 17:42 Follow up: IV Status: Infusion continued upon admission ph Medication: 15:21 VIS not applicable for this client. ph Outcome: 16:25 Decision to Hospitalize by Provider. snw 21:05 Patient left the ED. jb4 Signatures: Dispatcher [employer] EDMS Gerri Escobar, MIKE-C COMPOSITE BOND TECHNICIAN-Marcy Stewart, RN RN Kiesha Brush RN RN Javier Alan RN RN jb4 Renée [email or web address] Roseanna Elder, RN RN german3 Jaky Solorzano mm9 Corrections: (The following items were deleted from the chart) 14:52 14:48 Home Meds: amlodipine 2.5 mg tab 1 tab once daily; kb3 kb3 14:52 14:48 Home Meds: atorvastatin 40 mg Oral tab 1 tab once daily; kb3 kb3 14:52 14:48 Home Meds: citalopram 10 mg tab 1 tab once daily; kb3 kb3 14:52 14:48 Home Meds: tamsulosin 0.4 mg Oral cp24 1 cap once daily; kb3 kb3 14:52 14:48 Home Meds: Sodium Bicarbonate 10GR tab RIS Oral 3 tabs three times a day; kb3 kb3
[2022-07-19] MEDS ORDERED: NA CHLORIDE 0.9% 100 ML IV ONE (16:27)
[2022-07-19] MEDS ORDERED: PIPERACIL/TAZO 3.375 GM VIAL IV ONE (16:27)
--- NOTE | 2022-07-19 16:47 | P.HP ---
Certification for Inpatient With expected LOS: >2 Midnights Practitioner: I am a practitioner with admitting privileges, knowledge of patient current condition, hospital course, and medical plan of care. Services: Services provided to patient in accordance with Admission requirements found in Title 42 Section 412.3 of the Code of Federal Regulations Patient History Date of Service: 07/19/22 Reason for admission: Fever chills possible sepsis History of Present Illness: Patient is 82 years of age became sick yesterday developing fever chills and rigors ended up here in the emergency room possible sepsis eyes any cough or chest pain patient has his doctors in [place] Allergies No Known Allergies Allergy (Unverified 05/27/19 08:15) Home Medications: Aspirin [Aspirin EC 81 MG] 1 tab PO DAILY 07/09/20 Gabapentin 300 mg PO BID 07/09/20 Amiodarone HCl [Cordarone*] 200 mg PO DAILY #30 tab 07/19/20 Apixaban [Eliquis] 5 mg PO BID #60 tablet 07/19/20 Atorvastatin Calcium [Lipitor*] 20 mg PO BEDTIME #30 tab 07/19/20 Calcium Carbonate [Oscal*] 1,000 mg PO BID #60 tab 07/19/20 Cholecalciferol (Vitamin D3) [Vitamin D 1000 Iu Tab*] 2,000 unit PO DAILY #30 tab 07/19/20 Melatonin [Melatonin*] 3 mg PO BEDTIME #30 tablet 07/19/20 Metoprolol Tartrate [Lopressor*] 25 mg PO BID 6AM 6PM #60 tab 07/19/20 Tamsulosin [Flomax*] 0.8 mg PO BEDTIME #30 cap 07/19/20 Thiamine HCl [Vitamin B-1*] 200 mg PO DAILY #30 tablet 07/19/20 predniSONE [Deltasone*] 10 mg PO BID #10 tab 07/19/20 - Past Medical/Surgical History Diabetic: No -: Chronic renal disease -: Bladder Cancer, [facility] Oncology-Dr. Antolin Valera -: Varicose veins -: HTN -: Depression with anxiety -: Nicotine dependence -: Possible kidney cancer necrotic mass in the right kidney -: Siegel virus pneumonia -: Prostate cancer -: Ryan Cataracts sx -: Bladder reconstruction -: Bladder surgery -: Vascular surgery and is left calf Psychosocial/ Personal History: . 5 children - Family History Mother -: Lung disease, Diabetes Father -: Hypertension, Lung disease, Diabetes - Social History Alcohol use: No CD- Drugs: No Caffeine use: No Review of Systems 10-point ROS is otherwise unremarkable General: Weakness Respiratory: Shortness of Breath Physical Examination - Vital Signs Temperature: 102.7 F Blood Pressure: 96/46 Pulse: 85 Respirations: 32 Pulse Ox (%): 100 - Physical Exam General: Alert, Oriented x3 Neck: Supple Respiratory: Clear to auscultation bilaterally Cardiovascular: No edema, Regular rate/rhythm Gastrointestinal: Normal bowel sounds, Soft and benign Musculoskeletal: No clubbing, No swelling Integumentary: No rashes, No breakdown - Studies Laboratory Data (last 24 hrs) 07/19/22 15:30: PT 12.6 H, INR 1.15, APTT 30.0 07/19/22 15:30: Sodium 125 L, Potassium 4.6, BUN 66 H, Creatinine 1.67 H, Glucose 114 H, Total Bilirubin 1.0, AST 39 H, ALT 46, Alkaline Phosphatase 137 H 07/19/22 15:30: WBC 6.20, Hgb 16.7, Hct 47.7, Plt Count 163 Assessment and Plan - Problems (Diagnosis) (1) Sepsis Current Visit: Yes Status: Acute Plan: Patient is 82 years of age admitted with sudden onset of sepsis with fever chills rigors x-ray is clear apart from mild cardiomegaly patient has chronic renal failure normal white count plan to start on IV fluids IV antibiotic urine and blood culture probably origin is urinary tract - Advance Directives Does patient have a Living Will: No Does patient have a Durable POA for Healthcare: No
[2022-07-19] MEDS ORDERED: NA CHLORIDE 0.9% 500 ML IV ONE (16:53)
[2022-07-19] MEDS ORDERED: NA CHLORIDE 0.9% 1,000 ML ONE (16:53)
[2022-07-19 16:55] LABS: Urine Blood 3+ (Negative); Urine Glucose Negative (Negative); Urine Protein 2+ (Negative); Urine Specific Gravity 1.015 (1.005-1.030); Urine pH 7.5 (5.0-7.0)
[2022-07-19 17:07] LABS: Urine RBC >50 /HPF (None Seen)
[2022-07-19 17:08] LABS: Urine Bacteria 20-50 /HPF (<20); Urine Mucus 1+ /HPF (None Seen)
[2022-07-19] MEDS: NA CHLORIDE 0.9% 1,000 ML IV SCH (22:01)
[2022-07-19 23:14] VITALS: BMI 28.1
[2022-07-20] MEDS: NA CHLORIDE 0.9% 1,000 ML IV SCH ×3 (01:00→14:03)
[2022-07-20 05:50] LABS: Specific Gravity 1.011 (1.005-1.030); Urine Bacteria <20 /HPF (<20); Urine Bilirubin NEGATIVE (Negative); Urine Blood 2+ (Negative); Urine Clarity Turbid (Clear); Urine Color Light-Yellow (Yellow); Urine Glucose NEGATIVE (Negative); Urine Mucus Slight /HPF (None Seen); Urine Protein 1+ (Negative); Urine RBC 21-50 /HPF (None Seen); Urine Urobilinogen Normal (Normal); Urine WBC Clump Occasional /HPF (None Seen); Urine pH 6.5 (5.0-7.0)
[2022-07-20 06:01] LABS: Absolute Lymphocytes (CBC) 0.9 K/uL (0.7-4.9); Hematocrit 42.4 % (39.6-49.0); Lymphocytes % 13.5 % (15.3-44.8); MCV 90.4 fL (80-100); MPV 8.2 fL (7.6-11.3); RBC Red Blood Cell Count 4.69 M/uL (4.33-5.43)
[2022-07-20 06:18] LABS: Albumin 2.7 g/dL (3.4-5.0); Potassium 4.6 mmol/L (3.5-5.1); Protein, Total 6.4 g/dL (6.4-8.2)
[2022-07-20] MEDS: ACETAMINOPHEN 500 MG TAB PO PRN ×2 (06:26→12:33)
[2022-07-20] MEDS: CEFTRIAXONE 1,000 MG in NA CHLORIDE 0.9% 50 ML IVPB SCH (08:21)
--- NOTE | 2022-07-20 12:06 | P.PN ---
Subjective Date of Service: 07/20/22 Chief Complaint: Fever chills possible sepsis Subjective: Improving (Patient is doing better Divehi-speaking only limited information) Review of Systems General: Weakness Physical Examination - Vital Signs Temperature: 97.7 F Blood Pressure: 120/57 Pulse: 58 Respirations: 16 Pulse Ox (%): 94 - Physical Exam General: Alert, Cooperative Respiratory: Clear to auscultation bilaterally Cardiovascular: No edema, Normal S1 S2 - Studies Laboratory Data (last 24 hrs) 07/19/22 15:30: PT 12.6 H, INR 1.15, APTT 30.0 07/19/22 15:30: Sodium 125 L, Potassium 4.6, BUN 66 H, Creatinine 1.67 H, Glucose 114 H, Total Bilirubin 1.0, AST 39 H, ALT 46, Alkaline Phosphatase 137 H 07/19/22 15:30: WBC 6.20, Hgb 16.7, Hct 47.7, Plt Count 163 Assessment And Plan - Current Problems (Diagnosis) (1) Sepsis Current Visit: Yes Status: Acute Plan: Most likely the patient has urosepsis cultures are pending patient's white count is normal he is afebrile continue with IV antibiotics blood pressure oxygenation stable DC Humphreys catheter stable discharge tomorrow Qualifiers: Sepsis acute organ dysfunction status: unspecified
[2022-07-20] MEDS: Ringers Lactate 1,000 ML IV SCH (20:15)
[2022-07-21] MEDS: ACETAMINOPHEN 500 MG TAB PO PRN ×2 (01:22→06:31)
[2022-07-21 06:33] LABS: Absolute Lymphocytes (CBC) 0.9 K/uL (0.7-4.9); Hematocrit 43.1 % (39.6-49.0); Lymphocytes % 17.1 % (15.3-44.8); RBC Red Blood Cell Count 4.79 M/uL (4.33-5.43)
[2022-07-21 06:45] LABS: Potassium 4.6 mmol/L (3.5-5.1)
--- NOTE | 2022-07-21 07:42 | RAD REPORT ---
EXAM DESCRIPTION: RAD - Chest Single View - 07/21/2022 6:25 am CLINICAL HISTORY: PNA COMPARISON: Portable 07/19/2022 TECHNIQUE: AP portable chest image was obtained 07/21/2022 6:25 am . FINDINGS: Lung volumes remain low. No new or progressive lung parenchymal process. Heart size is prominent, accentuated by shallow inspiration portable exam. Vasculature is similar to comparison. No measurable pleural effusion and no pneumothorax. No acute bony abnormality seen. No acute aortic findings suspected. IMPRESSION: Stable portable chest. No new or progressive finding.
[2022-07-21] MEDS: Ringers Lactate 1,000 ML IV SCH ×2 (08:26→20:33)
[2022-07-21] MEDS: CEFTRIAXONE 1,000 MG in NA CHLORIDE 0.9% 50 ML IVPB SCH (08:27)
[2022-07-21] MEDS: AZITHROMYCIN IV 500 MG in NA CHLORIDE 0.9% 250 ML IVPB SCH (08:27)
[2022-07-21] MEDS ORDERED: Ringers Lactate 500 ML IV ONE (12:47)
--- NOTE | 2022-07-21 12:51 | P.PN ---
Subjective Date of Service: 07/21/22 Chief Complaint: Fever chills possible sepsis Mr. Lisandro Escobar is [place]-speaking only. The following history was obtained with the assistance of [employer] certified [place]an educational interpreter, Mr. Armstrong, (ID# [id number]). No acute events overnight. He states that he feels well this morning, and is eager to be discharged home. Lab work shows persistent metabolic acidosis, with a CO2 level of 16 this morning. Review of Systems 10-point ROS is otherwise unremarkable General: Weakness (generalized) Physical Examination - Vital Signs Temperature: 96.8 F Blood Pressure: 142/62 Pulse: 52 Respirations: 16 Pulse Ox (%): 97 - Physical Exam General: Alert, In no apparent distress, Oriented x3 HEENT: Atraumatic, PERRLA, Mucous membr. moist/pink, EOMI, Sclerae nonicteric Neck: JVD not distended Respiratory: Normal air movement, Rhonchi/gurgles Cardiovascular: No edema, Regular rate/rhythm, Normal S1 S2, No gallops, No r ubs, No murmurs Gastrointestinal: Normal bowel sounds, Soft and benign, Non-distended Musculoskeletal: No clubbing Integumentary: No rashes Neurological: Normal speech, Cranial nerves 3-12 intact, Normal affect Assessment And Plan - Plan # Sepsis possibly secondary to Urinary Tract Infection +/- Community-Acquired Pneumonia He initially met sepsis criteria based on temperature > 100.9 F, and RR > 20 breaths/min, and the suspected source is a UTI +/- pneumonia. - Sepsis order set was initiated - Initial Lactate was 1.2 - Blood cultures drawn - Broad spectrum antibiotics started: Ceftriaxone + Azithromycin - In regards to fluids: - 30 mL/kg of IV fluids was not administered given SBP > 90, MAP > 65, lactic acid < 4 - Chest x-ray = "Low lung volumes with some coarsening of the interstitium. Difficult to exclude a mild infectious or inflammatory process but no consolidative pneumonia or edema." - Urinalysis = 2+ blood, 500 leukocyte esterase, 2150 RBCs, >50 WBCs, 1+ protein # KDIGO Stage I Acute Kidney Injury on Chronic Kidney Disease Stage III # Non-Anion Gap Metabolic Acidosis possibly secondary to Normal Saline # History of Metastatic Renal Cancer - Creatinine = 1.67 -> 1.42 -> 1.38 - Urinalysis = 2+ blood, 500 leukocyte esterase, 2150 RBCs, >50 WBCs, 1+ protein - Switched NS to LR - Monitor creatinine and urine output - If worsening, obtain renal ultrasound - Renally dose medications # Hypovolemic Hyponatremia (resolved) - Sodium = 125 -> 132 -> 136 - Monitor BMP # Possible Chronic Atrial Fibrillation? - He does not know if he has atrial fibrillation, but home medication list included amiodarone + apixaban. - Resume home medications once verified # Microscopic Hematuria - Follow-up with PCP Zheng Desai M.D.
--- NOTE | 2022-07-21 13:52 | RAD REPORT ---
EXAM DESCRIPTION: CT - Thorax Wo Con - 07/21/2022 1:30 pm CLINICAL HISTORY: sob COMPARISON: 2017 TECHNIQUE: Computed axial tomography of the chest was obtained. Contrast was not requested. All CT scans are performed using dose optimization technique as appropriate and may include automated exposure control or mA/KV adjustment according to patient size. FINDINGS: The evaluation of mediastinum, joaquin and vessels is limited secondary to lack of IV contras t administration. Mild reticular opacities within the lower lobes bilaterally. No mediastinal or hilar lymphadenopathy is seen. A pleural effusion is not present. No pericardial effusion. AP diameter ascending thoracic aorta 4.1 centimeters. Coronary arterial calcifications. IMPRESSION: Mild reticular opacities within the lower lobes bilaterally may indicate mild pneumoniti s or atypical infection
[2022-07-22] MEDS: CEFTRIAXONE 1,000 MG in NA CHLORIDE 0.9% 50 ML IVPB SCH (08:01)
[2022-07-22] MEDS: AZITHROMYCIN IV 500 MG in NA CHLORIDE 0.9% 250 ML IVPB SCH (08:35)
[2022-07-22] MEDS ORDERED: Ringers Lactate 1,000 ML IV SCH (09:00)
[2022-07-22 12:14] VITALS: BP 148/62; TEMP 98.1
[2022-07-22] MEDS: Ringers Lactate 1,000 ML IV SCH (12:45)
[2022-07-22 13:47] VITALS: O2SAT 97
--- NOTE | 2022-07-22 14:35 | EKG ---
Test Date: 2022-07-19 Test Time: 15:52:26 Swimming Coach Or Instructor: BREANNA MEASUREMENT RESULTS: Intervals: Rate: 93 FL: QRSD: 84 QT: 334 QTc: 415 [place]: P: 53 FL: QRS: -20 T: 53 INTERPRETIVE STATEMENTS: Sinus tachycardia with 2nd degree AV block (Mobitz I) with premature supraventricular complexes Abnormal ECG Compared to ECG 07/14/2020 13:04:42 Atrial premature complex(es) now present Atrial fibrillation no longer present ST (T wave) deviation no longer present Electronically Signed On 07-22-22 14:32:28 WAITER/WAITRESS HEAD by Aureliano Nice
[2022-07-22 15:19] LABS: Potassium 3.9 mmol/L (3.5-5.1)
--- NOTE | 2022-07-22 15:51 | P.DS ---
Admission Date: 07/19/22 Discharge Date: 07/22/22 Disposition: ROUTINE DISCHARGE Discharge Condition: GOOD Reason for Admission: Fever chills possible sepsis Hospital Course: DIAGNOSES: # Sepsis possibly secondary to Proteus Mirabilis Urinary Tract Infection +/- Community-Acquired/Atypical Pneumonia # KDIGO Stage I Acute Kidney Injury on Chronic Kidney Disease Stage III # Non-Anion Gap Metabolic Acidosis possibly secondary to Normal Saline # History of Metastatic Renal Cancer # Hypovolemic Hyponatremia (resolved) # Possible Chronic Atrial Fibrillation? # Microscopic Hematuria HOSPITAL COURSE: Mr. Lisandro Escobar is Maori-speaking only. The following communication was obtained with the assistance of [employer] certified Maori-Pashto vice president network development, Mr. Nito Monroy, (ID# [id number]). Mr. Lisandro Escobar is a pleasant 82 year old male with a past medical history significant for metastatic renal cancer, chronic kidney disease stage III, and chronic atrial fibrillation who was admitted to the [facility] on 07/19/2022 for fevers, chills, and malaise. He was admitted to the Medicine service. Upon further evaluation, he was found to have sepsis thought to be secondary to a Proteus Mirabilis urinary tract infection as well as possible community-acquired/atypical pneumonia. He was treated with IV antibiotics, and over the course of his hospitalization, his symptoms improved significantly. Additionally, he was found to have an acute kidney injury as well as microscopic hematuria. It was thought that his kidney injury was secondary to a pre-renal etiology in the setting of sepsis. With IV fluids, his creatinine continued to improve and normalized. He also had hypovolemic hypovolemia, which also responded well to fluids. In regards to his microscopic hematuria, he was advised to follow-up with his PCP for further evaluation. He verbalized understanding and agreed to make this appointment. On 07/22/2022, he was seen on rounds and deemed medically stable for discharge. He was discharged with instructions to schedule follow-up appointments with his PCP. He and his were provided prescriptions for cefdinir and doxycycline. He was given the opportunity to ask questions and reported no further questions. Furthermore, all questions were answered to the best of my ability. Today, I personally spent 25 minutes on his case, of which greater than 50% of the time was spent in patient education, counseling, and coordination of care as described above. - Physical Exam General: Alert, In no apparent distress, Oriented x3 HEENT: Atraumatic, Mucous membr. moist/pink, EOMI, Sclerae nonicteric Neck: JVD not distended Respiratory: Diminished, but clear to ausculation bilaterally Cardiovascular: No edema, Regular rate/rhythm, Normal S1 S2, No gallops, No rubs, No murmurs Gastrointestinal: Normal bowel sounds, Soft and benign, Non-distended Musculoskeletal: No clubbing Integumentary: No rashes Neurological: Normal speech, Cranial nerves 3-12 intact, Normal affect Vital Signs/Physical Exam: Temp Pulse Resp BP Pulse Ox 98.1 F 59 14 148/62 H 97 07/22/22 12:00 07/22/22 12:00 07/22/22 12:00 07/22/22 12:00 07/22/22 12:00 Laboratory Data at Discharge: WBC 5.10 K/uL (4.3-10.9) 07/21/22 06:11 Hgb 15.0 g/dL (13.6-17.9) 07/21/22 06:11 Hct 43.1 % (39.6-49.0) 07/21/22 06:11 Plt Count 147 K/uL (152-406) L 07/21/22 06:11 PT 12.6 SECONDS (9.5-12.5) H 07/19/22 15:30 INR 1.15 07/19/22 15:30 APTT 30.0 SECONDS (24.3-36.9) 07/19/22 15:30 Sodium 139 mmol/L (136-145) 07/22/22 14:41 Potassium 3.9 mmol/L (3.5-5.1) 07/22/22 14:41 BUN 45 mg/dL (7-18) H 07/22/22 14:41 Creatinine 1.05 mg/dL (0.70-1.30) 07/22/22 14:41 Glucose 124 mg/dL (74-106) H 07/22/22 14:41 Total Bilirubin 1.0 mg/dL (0.2-1.0) 07/20/22 05:47 AST 23 U/L (15-37) 07/20/22 05:47 ALT 33 U/L (16-61) 07/20/22 05:47 Alkaline Phosphatase 94 U/L (45-117) D 07/20/22 05:47 Home Medications: Aspirin [Aspirin EC 81 MG] 1 tab PO DAILY 07/09/20 Gabapentin 300 mg PO BID 07/09/20 Amiodarone HCl [Cordarone*] 200 mg PO DAILY #30 tab 07/19/20 Apixaban [Eliquis] 5 mg PO BID #60 tablet 07/19/20 Atorvastatin Calcium [Lipitor*] 20 mg PO BEDTIME #30 tab 07/19/20 Calcium Carbonate [Oscal*] 1,000 mg PO BID #60 tab 07/19/20 Cholecalciferol (Vitamin D3) [Vitamin D 1000 Iu Tab*] 2,000 unit PO DAILY #30 tab 07/19/20 Melatonin [Melatonin*] 3 mg PO BEDTIME #30 tablet 07/19/20 Metoprolol Tartrate [Lopressor*] 25 mg PO BID 6AM 6PM #60 tab 07/19/20 Tamsulosin [Flomax*] 0.8 mg PO BEDTIME #30 cap 07/19/20 Thiamine HCl [Vitamin B-1*] 200 mg PO DAILY #30 tablet 07/19/20 predniSONE [Deltasone*] 10 mg PO BID #10 tab 07/19/20 Cefdinir [Cefdinir*] 300 mg PO BID 7 Days #14 cap 07/22/22 Doxycycline Hyclate 100 mg PO BID 7 Days #14 tab 07/22/22 New Medications: Cefdinir [Cefdinir*] 300 mg PO BID 7 Days #14 cap Doxycycline Hyclate 100 mg PO BID 7 Days #14 tab Physician Discharge Instructions: 1. Please call and schedule a follow-up appointment with your PCP in 3-5 days Diet: AHA Activity: Ad vitor Time spent managing pt's care (in minutes): 25
[2022-07-22] MEDS ORDERED: CEFDINIR 300 MG CAP PO SCH (21:00)
== END 2022-07-22 18:22 | disposition home or self-care (01) | DRG 871 ==
LOC: ER 14:25 → ERHOLD 16:47 → 2ND 20:13
PROVIDERS: ADMIT Internal Medicine Sleep Medicine; ATTEND Internal Medicine
DX: A41.9 Sepsis, unspecified organism (principal); J18.9 Pneumonia, unspecified organism; E87.20 Acidosis, unspecified; I48.20 Chronic atrial fibrillation, unspecified; E87.1 Hypo-osmolality and hyponatremia; N17.9 Acute kidney failure, unspecified; N39.0 Urinary tract infection, site not specified; N18.30 Chronic kidney disease, stage 3 unspecified; I12.9 Hypertensive chronic kidney disease with stage 1 through stage 4 chronic kidney disease, or unspecified chronic kidney disease; N18.9 Chronic kidney disease, unspecified; F17.200 Nicotine dependence, unspecified, uncomplicated; I83.90 Asymptomatic varicose veins of unspecified lower extremity; F41.8 Other specified anxiety disorders; B96.4 Proteus (mirabilis) (morganii) as the cause of diseases classified elsewhere; R31.9 Hematuria, unspecified; Z85.46 Personal history of malignant neoplasm of prostate; Z85.51 Personal history of malignant neoplasm of bladder; Z85.528 Personal history of other malignant neoplasm of kidney
CPT/HCPCS: 0241U; 36415; 71045; 71250; 80048; 80053; 81001; 81003; 81015; 83605; 83930; 84300; 85025; 85610; 85730; 87040; 87070; 87077; 87086; 87088; 87186; 87205; 93005; 96365; 99284; J0456; J2543; J7030; J7050; J7120

== ENCOUNTER 2022-08-06 23:27 | Observation (INO) | payer OTHER ==
--- OUTSIDE RECORDS SUMMARY | 2022-08-06 23:34 | XMS REPORT | Continuity of Care Document ---
:1940 Author Organization [facility] t Address [facility] [place] [address] Care Team Providers Name Role Phone RYAN STELLA Primary Care Physician [facility] Attending [facility]ician Unavailable CAMILA MONDRAGON Attending Clinician [...] Laura GOVEA, Joao Marrero Attending Clinician ADRIAN MEDINA Attending Clinician Unavailable Lab, Adc Fam Pob [...] Policy Number Effective Date Expiration Date S [facility] - [id number] [facility] - DUAL ELIGIBLE (MEDICARE REPLACEMENT/ADVANTA GE - HMO) [facility] [id number] 2019 ADVANTAGE HMO -[facility] 00:00:00 WELLCARE [place] [id number] 2015 2016 HMO-WELLCARE 00:00:00 00:00:00 S - JURISDICTION [id number] C DME MAC - MEDICARE ZZZ [place] HMO [id number] 2016 - SE* SELECTCARE OF 00:00:00 [facility] [place] [id number] HMO-[place] PCP ZZZMEDICARE [id number] ADVANTAGE PLAN-O [facility]-MEDICAID - [id number] MEDICAID AARP/MEDICARE [id number] 2018 COMPLETE 00:00:00 Problems Condition Condition Condition [...] S t lower limb lower limb 7-07 [facility] ischemia ischemia 00:00: Medica l 00 [...] unspecifie d d PAD PAD Disease Active [facility] (periphera (periphera 2-09 Co llege l artery l artery 00:00: of disease) disease) 00 Medici n (HCCode) (HCCode) e Urinary Urinary Disease Active [facility] obstructio obstructio 1-08 [facility] 00:00: Medical 00 [place] Renal Renal Disease Active 2014-07 [facility] mass, mass, 2-29 College right right 00:00: of 00 Medicin e Renal Renal Disease Active 2014-07 [facility] cyst, left cyst, left 2-29 Co llege 00:00: of 00 Medicin e 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 [facility]10 [facility] [place] CKD CKD Disease Active 2014-[address] [facility] (chronic (chronic 2-10 [facility] kidney kidney 00:00: Medical disease) disease) 00 [place] stage 2, stage 2, GFR 60-89 GFR 60-89 ml/min ml/min Hyperkalem Hyperkalem Disease Active 2014-[address] ia ia 2-10 [facility] [place] Hyponatrem Hyponatrem Disease Active 2014-[address] ia ia 2-10 [facility] 00 [place] Chronic Chronic Disease Active 2014-[address] [facility] kidney kidney 2-10 [facility] disease, disease, 00:00: Medica l stage 3 stage 3 00 [place] Cellulitis Cellulitis Disease Active 2014-[address] of left of left 2-10 [facility] foot foot 00:00: Medical 00 [place] Urinary Urinary Disease Active 2014-07 [facility] retention retention 1-24 [facility] 00:00: of 00 Medicin e DOMINIQUE (acute DOMINIQUE (acute Disease Active 2014-[address] kidney kidney 1-13 [facility] injury) injury) 00:00: Medical 00 [place] COLBY COLBY Disease Active 2014-07 [facility] (stress (stress 1-12 College urinary urinary 00:00: of incontinen incontinen 00 Me dicin ce), male ce), male e Depression Depression Disease Active 2014-07 [facility] 0-02 [facility] 00:00: of 00 Medicin e Prostate Prostate Disease Active [facility] r cancer cancer 9-04 College (HCCode) (HCCode) 00:00: of 00 Medicin e Wheezing Wheezing Disease Active [facility] r 9-04 College 00:00: of 00 Medicin [...] Disease Active B dimitris a, a, 09-18 [facility] drug-induc drug-induc 00:00: of ed ed 00 Medicin (HCCode) (HCCode) e Bladder Bladder Disease Active [facility] cancer cancer 09-14 College (HCCode) (HCCode) 00:00: of 00 Medicin e Bladder Bladder Disease Active [facility] cancer cancer 08-21 [facility] Hematuria Hematuria Disease Active 2013-07 [facility] 09-04 [facility] 00:00: of 00 Medicin e Peripheral 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[facility] vascular vascular Colleg e disease disease of (HCCode) (HCCode) Medici n e Chronic Chronic Disease Active [facility] kidney kidney [facility] disease disease of Medicin e Allergies, Adverse [...] reaction 00 l s to drug Rick Drug Active Other (See Hyperkale [facility] Inhibito Intolera Comments) 1-08 barbie per Leti kes rs nce 00:00: BC file Medical 00 Center RICK Allergy Active High Other [facility] INHIBITO 1-08 RS 00:00: 00 Rick Drug Active Other (See Hyperkale [facility] Inhibito Intolera Comments) 1-08 barbie per [facility]i kes rs nce 00:00: BCM file Medical 00 Center Rick Propensi Active 2014-07 [facility] Inhibito ty to 2-10 barbie [facility] rs adverse 00:00: of reaction 00 Medicin s to e drug NO KNOWN Drug Active Univers ALLERGIE Class ity of S [facility] Social History Social Habit Start Date Stop Date Quantity Comments Source History [facility] [address] ge of Alcohol Std Drinks Medici ne History [facility] of Alcohol Binge Medicine Exposure to Yes University of SARS-CoV-2 (event) [facility] Tobacco Comment 2021-12-23 2021-12-23 100 pack year [facility] 00:00:00 00:00:00 Medicine Cigarettes smoked 2021-12-23 2021-12-23 [facility] current (pack per 00:00:00 00:00:00 Medicin e day) - Reported Cigarette 2021-12-23 2021-12-23 [facility] pack-years 00:00:00 00:00:00 Medicine Tobacco use and 2021-12-23 2021-12-23 Former smokeless [facility] of exposure 00:00:00 00:00:00 tobacco user Medicine History [facility] 2018-08-31 2018-08-31 1 [facility] of Alcohol Frequency 00:00:00 00:00:00 Medicin e Alcohol intake 2018-04-13 2018-04-[address] [facility] Anupam es 00:00:00 00:00:00 non-drinker of Medical Ce nter alcohol (finding) Alcohol Comment 2015-08-27 2015-08-[address] [facility] 00:00:00 00:00:00 Medicine History of tobacco 1960-07[birth year] 2014-03-04 Cigarette Smoker [facility] of use 00:00:00 00:00:00 Medicine Sex Assigned At [address]es 00:00:00 00:00:00 Medical Center Smoking Status Start Date Stop Date Source Never Smoker [facility] maria fernanda Tobacco smoking [facility] consumption unknown Ex-smoker 2021-12-23 00:00:00 2021-12-23 [facility] of 00:00:00 Medicine Medications Ordered Filled Start Stop Current Ordering Indication Dosage Frequency Signature Comments Components Source Medication Medication Date Date Medication? Clinician (SIG) Name Name aspirin 81 Yes 81mg Take 81 mg [facility] tablet 6-20 by mouth Colleg e 08:41: daily. of 53 Once daily Medicin e Tamsulosin 2-0 Yes [id number] .4mg Take 0.4 [facility] HCl 0.4 MG 6-20 mg by College CAPS 08:41: mouth. of 53 Medicin e SODIUM 2-0 Yes [id number] 10mg Take 10 mg [facility] BICARBONATE 6-20 by mouth 3 Co llege OR 08:41: times of 53 daily. Medicin Takes 3 e tabs by mouth three times a day citalopram 2-0 Yes [id number] 20mg Take 20 mg [facility] (CELEXA) 20 6-20 by mouth [facility] MG tablet 08:41: daily. of 53 Medicin e amlodipine 2-0 Yes [id number] 2.5mg Take 2.5 [facility] (NORVASC) 6-20 mg by College 2.5 MG 08:41: mouth of tablet 53 daily. Medicin e levofloxaci 2-0 Yes 250mg Take 250 [facility] n 6-20 mg by [facility] (LEVAQUIN) 08:41: mouth. of 500 MG 53 Medicin tablet e aspirin 81 2-0 Yes 81mg Take 81 mg [facility] tablet 6-20 by mouth Colleg e 08:41: daily. of 53 Once daily Medicin e Tamsulosin 2-0 Yes [id number] .4mg Take 0.4 [facility] HCl 0.4 MG 6-20 mg by College CAPS 08:41: mouth. of 53 Medicin e SODIUM 2-0 Yes [id number] 10mg Take 10 mg [facility] BICARBONATE 6-20 by mouth 3 Co llege OR 08:41: times of 53 daily. Medicin Takes 3 e tabs by mouth three times a day citalopram 2-0 Yes [id number] 20mg Take 20 mg [facility] (CELEXA) 20 6-20 by mouth [facility] MG tablet 08:41: daily. of 53 Medicin e amlodipine 2-0 Yes [id number] 2.5mg Take 2.5 [facility] (NORVASC) 6-20 mg by [facility] 2.5 MG 08:41: mouth of tablet 53 daily. Medicin e levofloxaci 2-0 Yes 250mg Take 250 [facility] n 6-20 mg by College (LEVAQUIN) 08:41: mouth. of 500 MG 53 Medicin tablet e aspirin 81 Yes 81mg Take 81 mg [facility] MG tablet 2-08 by mouth Colleg e 12:16: daily. of 56 Once daily Medicin e Tamsulosin Yes [id number] .4mg Take 0.4 [facility] HCl 0.4 MG 2-08 mg by College CAPS 12:16: mouth. of 56 Medicin e SODIUM Yes [id number] 10mg Take 10 mg [facility] BICARBONATE 2-08 by mouth 3 Co llege OR 12:16: times of 56 daily. Medicin Takes 3 e tabs by mouth three times a day citalopram Yes [id number] 20mg Take 20 mg [facility] (CELEXA) 20 2-08 by mouth [facility] MG tablet 12:16: daily. of 56 Medicin e amlodipine Yes [id number] 2.5mg Take 2.5 [facility] (NORVASC) 2-08 mg by College 2.5 MG 12:16: mouth of tablet 56 daily. Medicin e levofloxaci Yes 250mg Take 250 [facility] n 2-08 mg by College (LEVAQUIN) 12:16: mouth. of 500 MG 56 Medicin tablet e aspirin 81 2020-07 Yes 81mg Take 81 mg [facility] tablet 2-06 by mouth Colleg e 14:21: daily. of 54 Once daily Medicin e Tamsulosin 2020-07 Yes [id number] .4mg Take 0.4 [facility] HCl 0.4 MG 2-06 mg by College CAPS 14:21: mouth. of 54 Medicin e SODIUM 2020-07 Yes [id number] 10mg Take 10 mg [facility] BICARBONATE 2-06 by mouth 3 Co llege OR 14:21: times of 54 daily. Medicin Takes 3 e tabs by mouth three times a day citalopram 2020-07 Yes [id number] 20mg Take 20 mg [facility] (CELEXA) 20 2-06 by mouth [facility] MG tablet 14:21: daily. of 54 Medicin e amlodipine 2020-07 Yes [id number] 2.5mg Take 2.5 [facility] (NORVASC) 2-06 mg by College 2.5 MG 14:21: mouth of tablet 54 daily. Medicin e levofloxaci 2020-07 Yes 250mg Take 250 [facility] n 2-06 mg by [facility] ([facility]) 14:21: mouth. of 500 MG 54 Medicin tablet e aspirin 81 Yes 81mg Take 81 mg [facility] MG tablet 9-27 by mouth Colleg e 13:30: daily. of Once daily Medicin e Tamsulosin Yes [id number] .4mg Take 0.4 [facility] HCl 0.4 MG 9-27 mg by College CAPS 13:30: mouth. of Medicin e SODIUM Yes [id number] 10mg Take 10 mg [facility] BICARBONATE 9-27 by mouth 3 Co llege OR 13:30: times of daily. Medicin Takes 3 e tabs by mouth three times a day citalopram Yes [id number] 20mg Take 20 mg [facility] (CELEXA) 20 9-27 by mouth [facility] MG tablet 13:30: daily. of Medicin e amlodipine Yes [id number] 2.5mg Take 2.5 [facility] (NORVASC) 9-27 mg by [facility] 2.5 MG 13:30: mouth of tablet daily. Medicin e levofloxaci Yes 250mg Take 250 [facility] n 9-27 mg by [facility] ([facility]) 13:30: mouth. of 500 MG 01 Medicin tablet e aspirin 81 Yes 81mg Take 81 mg [facility] tablet 9-27 by mouth Colleg e 13:30: daily. of Once daily Medicin e Tamsulosin Yes [id number] .4mg Take 0.4 [facility] HCl 0.4 MG 9-27 mg by [facility] CAPS 13:30: mouth. of Medicin e SODIUM Yes [id number] 10mg Take 10 mg [facility] BICARBONATE 9-27 by mouth 3 Co llege OR 13:30: times of 01 daily. Medicin Takes 3 e tabs by mouth three times a day citalopram Yes [id number] 20mg Take 20 mg [facility] (CELEXA) 20 9-27 by mouth [facility] MG tablet 13:30: daily. of Medicin e amlodipine Yes [id number] 2.5mg Take 2.5 [facility] (NORVASC) 9-27 mg by [facility] 2.5 MG 13:30: mouth of tablet 01 daily. Medicin e levofloxaci Yes 250mg Take 250 [facility] n 9-27 mg by [facility] (LEVAQUIN) 13:30: mouth. of 500 MG 01 Medicin tablet e mirtazapine 0 2020- No 15mg Take 15 mg [facility] (REMERON) 04-15 by mouth Colle ge 15 MG 13:29: 00:00 nightly. of tablet 55 :00 Medicin e mirtazapine 2020-0 2020- No 15mg Take 15 mg [facility] (REMERON) 04-15 by mouth Colle ge 15 MG 13:29: 00:00 nightly. of tablet 55 :00 Medicin e mirtazapine Yes 15mg Take 15 mg [facility] (REMERON) 8-27 by mouth Colleg e 15 MG 14:08: nightly. of tablet 52 Medicin e aspirin 81 0 Yes 81mg Take 81 mg [facility] MG tablet - by mouth Colleg e 14:08: daily. of 52 Once daily Medicin e Tamsulosin Yes [id number] .4mg Take 0.4 [facility] HCl 0.4 MG 8-27 mg by [facility] CAPS 14:08: mouth. of 52 Medicin e SODIUM Yes [id number] 10mg Take 10 mg [facility] BICARBONATE 8-27 by mouth 3 Co llege OR 14:08: times of 52 daily. Medicin Takes 3 e tabs by mouth three times a day citalopram Yes [id number] 20mg Take 20 mg [facility] (CELEXA) 20 8-27 by mouth [facility] MG tablet 14:08: daily. of 52 Medicin e amlodipine 0 Yes [id number] 2.5mg Take 2.5 [facility] (NORVASC) 8-27 mg by [facility] 2.5 MG 14:08: mouth of tablet 52 daily. Medicin e levofloxaci Yes 250mg Take 250 [facility] n 8-27 mg by [facility] (LEVAQUIN) 14:08: mouth. of 500 MG 52 Medicin tablet e atorvastati 0 2020- No 40mg Take 40 mg [facility] n (LIPITOR) 03-14 by mouth Col lege 40 MG 00:00: 00:00 at of tablet 00 :00 bedtime. Medicin e atorvastati 2020- No 40mg Take 40 mg [facility] n (LIPITOR) 03-14 by mouth Col lege 40 MG 00:00: 00:00 at of tablet 00 :00 bedtime. Medicin e mirtazapine Yes 15mg Take 15 mg [facility] (REMERON) 6-23 by mouth Colleg e 15 MG 11:08: nightly. of tablet 51 Medicin e aspirin 81 Yes 81mg Take 81 mg [facility] tablet 6-23 by mouth Colleg e 11:08: daily. of 51 Once daily Medicin e Tamsulosin Yes [id number] .4mg Take 0.4 [facility] HCl 0.4 MG 6-23 mg by [facility] CAPS 11:08: mouth. of 51 Medicin e SODIUM Yes [id number] 10mg Take 10 mg [facility] BICARBONATE 6-23 by mouth 3 Co llege OR 11:08: times of 51 daily. Medicin Takes 3 e tabs by mouth three times a day citalopram Yes [id number] 20mg Take 20 mg [facility] (CELEXA) 20 6-23 by mouth [facility] MG tablet 11:08: daily. of 51 Medicin e amlodipine Yes [id number] 2.5mg Take 2.5 [facility] (NORVASC) 6-23 mg by College 2.5 [...] Medicin nightly. e Apply as directed ciclopirox 1-0 Yes 1{appli Apply 1 [facility] (PENLAC) 8 6-23 cation} applicatio College % solution 00:00: n of 00 topically Medicin nightly. e Apply as directed ciclopirox 2020-0 Yes 1{appli Apply 1 [facility] (PENLAC) 8 6-23 cation} applicatio College % solution 00:00: n of 00 topically Medicin nightly. e Apply as directed ciclopirox 2020-0 Yes 1{appli Apply 1 [facility] (PENLAC) 8 6-23 cation} applicatio College % solution 00:00: n of 00 topically Medicin nightly. e Apply as directed ciclopirox 1-0 Yes 1{appli Apply 1 [facility] (PENLAC) 8 6-23 cation} applicatio College % solution 00:00: n of 00 topically Medicin nightly. e Apply as directed ciclopirox 2020-0 Yes 1{appli Apply 1 B [...] DAILY ONE e HOUR BEFORE NEEDED. mirtazapine 0 Yes 15mg Take 15 mg [facility] (REMERON) 6-04 by mouth Colleg e 15 MG 15:10: nightly. of tablet 57 Medicin e aspirin 81 2020-0 Yes 81mg Take 81 mg [facility] MG tablet 6-04 by mouth Colleg e 15:10: daily. of 57 Once daily Medicin e Tamsulosin 0 Yes [id number] .4mg Take 0.4 [facility] HCl 0.4 MG 6-04 mg by [facility] CAPS 15:10: mouth. of 57 Medicin e SODIUM 0 Yes [id number] 10mg Take 10 mg [facility] BICARBONATE 6-04 by mouth 3 Co llege OR 15:10: times of 57 daily. Medicin Takes 3 e tabs by mouth three times a day citalopram 2020-0 Yes [id number] 20mg Take 20 mg [facility] (CELEXA) 20 6-04 by mouth [facility] MG tablet 15:10: daily. of 57 Medicin e amlodipine 0 Yes [id number] 2.5mg Take 2.5 [facility] (NORVASC) 6-04 mg by College 2.5 [...] Once daily Medicin e Tamsulosin 2020-0 Yes [id number] .4mg Take 0.4 [facility] HCl 0.4 MG 4-19 mg by College CAPS 20:40: mouth. of 39 Medicin e SODIUM 0 Yes [id number] 10mg Take 10 mg [facility] BICARBONATE 4-19 by mouth 3 Co llege OR 20:40: times of 39 daily. Medicin Takes 3 e tabs by mouth three times a day citalopram 2020- Yes [id number] 20mg Take 20 mg [facility] (CELEXA) 20 4-19 by mouth [facility] MG tablet 20:40: daily. of 39 Medicin e amlodipine 0 Yes [id number] 2.5mg Take 2.5 [facility] (NORVASC) 4-19 mg by [facility] 2.5 MG 20:40: mouth of tablet 39 daily. Medicin e mirtazapine Yes 15mg Take 15 mg [facility] (REMERON) 4-19 by mouth Colleg e 15 MG 20:40: nightly. of tablet 39 Medicin e aspirin 81 0 Yes 81mg Take 81 mg [facility] MG tablet 4-19 by mouth Colleg e 20:40: daily. of 39 Once daily Medicin e Tamsulosin Yes [id number] .4mg Take 0.4 [facility] HCl 0.4 MG 4-19 mg by [facility] CAPS 20:40: mouth. of 39 Medicin e SODIUM Yes [id number] 10mg Take 10 mg [facility] BICARBONATE 4-19 by mouth 3 Co llege OR 20:40: times of 39 daily. Medicin Takes 3 e tabs by mouth three times a day citalopram Yes [id number] 20mg Take 20 mg [facility] (CELEXA) 20 4-19 by mouth [facility] MG tablet 20:40: daily. of 39 Medicin e amlodipine Yes [id number] 2.5mg Take 2.5 [facility] (NORVASC) 4-19 mg by [facility] 2.5 MG 20:40: mouth of tablet 39 daily. Medicin e ciclopirox Yes 1{appli Apply 1 [facility] (PENLAC) 8 4-19 cation} applicatio [facility] % solution 00:00: n of 00 topically Medicin nightly. e Apply as directed gabapentin 2021-0 Yes 300mg Take 1 [facility] (NEURONTIN) 4-19 capsule by Co llege 300 MG 00:00: mouth 3 of capsule 00 times Medicin daily. e ciclopirox 2020-0 Yes 1{appli Apply 1 [facility] (PENLAC) 8 4-19 cation} applicatio College % solution 00:00: n of 00 topically Medicin nightly. e Apply as directed gabapentin 2020-0 Yes 300mg Take 1 [facility] (NEURONTIN) 4-19 capsule by Co llege 300 MG 00:00: mouth 3 of capsule 00 times Medicin daily. e gabapentin 2020-0 Yes 300mg Take 1 [facility] (NEURONTIN) 4-19 capsule by Co llege 300 MG 00:00: mouth 3 of capsule 00 times Medicin daily. e gabapentin 2020-0 Yes 300mg Take 1 [facility] (NEURONTIN) 4-19 capsule by Co llege 300 MG 00:00: mouth 3 of capsule 00 times Medicin daily. e gabapentin 2020-0 Yes 300mg Take 1 [facility] (NEURONTIN) 4-19 capsule by Co [facility]lege 300 MG 00:00: mouth 3 of capsule 00 times Medicin daily. e gabapentin 2020-0 Yes 300mg Take 1 [facility] (NEURONTIN) 4-19 capsule by Co llege 300 MG 00:00: mouth 3 of capsule 00 times Medicin daily. e gabapentin 2020-0 Yes 300mg Take 1 [facility] (NEURONTIN) 4-19 capsule by Co llege 300 MG 00:00: mouth 3 of capsule 00 times Medicin daily. e gabapentin 2020-0 Yes 300mg Take 1 [facility] (NEURONTIN) 4-19 capsule by Co llege 300 MG 00:00: mouth 3 of capsule 00 times Medicin daily. e gabapentin 202-0 Yes 300mg Take 1 [facility] (NEURONTIN) 4-19 capsule by Co llege 300 MG 00:00: mouth 3 of capsule 00 times Medicin daily. e gabapentin 2021-0 Yes 300mg Take 1 [facility] (NEURONTIN) 4-19 capsule by Co llege 300 MG 00:00: mouth 3 of capsule 00 times Medicin daily. e ciclopirox 2020-0 2021- No 1{appli Apply 1 [facility] (PENLAC) [...] [facility] Sodium 1 % 3-10 cation} applicatio [employer] GEL 00:00: n of 00 topically Medicin [...] daily. ciclopirox 2020- No 1{appli Apply 1 [facility] (PENLAC) 8 3-10 04-19 cation} applicatio College % solution 00:00: 00:00 n of 00 :00 topically Medicin nightly. e Apply as directed ciclopirox 2020- No 1{appli Apply 1 [facility] (PENLAC) 8 3-10 04-19 cation} applicatio [...] 50 Once daily Medicin e Tamsulosin Yes [id number] .4mg Take 0.4 [facility] HCl 0.4 MG 3-09 mg by College CAPS 15:19: mouth. of 50 Medicin e SODIUM Yes [id number] 10mg Take 10 mg [facility] BICARBONATE 3-09 by mouth 3 Co llege OR 15:19: times of 50 daily. Medicin Takes 3 e tabs by mouth three times a day citalopram Yes [id number] 20mg Take 20 mg [facility] (CELEXA) 20 3-09 by mouth [facility] MG tablet 15:19: daily. of 50 Medicin e amlodipine 2021-0 Yes [id number] 2.5mg Take 2.5 [facility] (NORVASC) 3-09 mg by College 2.5 MG 15:19: mouth of tablet 50 daily. Medicin e mirtazapine 0 Yes 15mg Take 15 mg [facility] (REMERON) 3-09 by mouth Colleg e 15 MG 15:19: nightly. of tablet 50 Medicin e aspirin 81 2020-0 Yes 81mg Take 81 mg [facility] MG tablet 3-09 by mouth Colleg e 15:19: daily. of 50 Once daily Medicin e Tamsulosin Yes [id number] .4mg Take 0.4 [facility] HCl 0.4 MG 3-09 mg by College CAPS 15:19: mouth. of 50 Medicin e SODIUM Yes [id number] 10mg Take 10 mg [facility] BICARBONATE 3-09 by mouth 3 Co llege OR 15:19: times of 50 daily. Medicin Takes 3 e tabs by mouth three times a day citalopram 2020- Yes [id number] 20mg Take 20 mg [facility] (CELEXA) 20 3-09 by mouth [facility] MG tablet 15:19: daily. of 50 Medicin e amlodipine Yes [id number] 2.5mg Take 2.5 [facility] (NORVASC) 3-09 mg by [facility] 2.5 MG 15:19: mouth of tablet 50 daily. Medicin e mirtazapine Yes 15mg Take 15 mg [facility] (REMERON) 3-08 by mouth Colleg e 15 MG 16:04: nightly. of tablet 01 Medicin e aspirin 81 2020-0 Yes 81mg Take 81 mg [facility] MG tablet 3-08 by mouth Colleg e 16:04: daily. of 01 Once daily Medicin e Tamsulosin 2020- Yes [id number] .4mg Take 0.4 [facility] HCl 0.4 MG 3-08 mg by [facility] CAPS 16:04: mouth. of 01 Medicin e SODIUM 2020- Yes [id number] 10mg Take 10 mg [facility] BICARBONATE 3-08 by mouth 3 Co llege OR 16:04: times of 01 daily. Medicin Takes 3 e tabs by mouth three times a day citalopram 2020-0 Yes [id number] 20mg Take 20 mg [facility] (CELEXA) 20 3-08 by mouth [facility] MG tablet 16:04: daily. of Medicin e amlodipine 0 Yes [id number] 2.5mg Take 2.5 [facility] (NORVASC) 3-08 mg by College 2.5 MG 16:04: mouth of tablet 01 daily. Medicin e Melatonin 3 2019- Yes AT BEDTIME [facility] MG TABS 2- College 00:00: of 00 Medicin e metoprolol 2019- Yes TWICE [facility] (LOPRESSOR) 2- DAILY 0600 Co l[facility] 25 MG 00:00: AND 1800 of tablet 00 Medicin e Melatonin 3 2019- Yes AT BEDTIME [facility] MG TABS 2- College 00:00: of 00 Medicin e metoprolol 2019- Yes TWICE [facility] (LOPRESSOR) 2- DAILY 0600 [facility] llege 25 MG 00:00: AND 1800 of tablet 00 Medicin e Melatonin 3 2019- Yes AT BEDTIME [facility] MG TABS 2- College 00:00: of 00 Medicin e metoprolol 2019- Yes TWICE [facility] (LOPRESSOR) 2- DAILY 0600 [facility] 25 MG 00:00: AND 1800 of tablet 00 Medicin e Melatonin 3 2019- Yes AT BEDTIME [facility] MG TABS 2 College 00:00: of 00 Medicin e metoprolol 2019- Yes TWICE [facility] (LOPRESSOR) 2- DAILY 0600 [facility] 25 MG 00:00: AND 1800 of tablet 00 Medicin e Melatonin 3 2019- Yes AT BEDTIME [facility] MG TABS 2- College 00:00: of 00 Medicin e metoprolol 2019- Yes TWICE [facility] (LOPRESSOR) 2- DAILY 0600 [facility] 25 MG 00:00: AND 1800 of tablet 00 Medicin e Melatonin 3 2019- Yes AT BEDTIME [facility] MG TABS 2- College 00:00: of 00 Medicin e metoprolol 2019- Yes TWICE [facility] (LOPRESSOR) 2-31 DAILY 0600 [facility] 25 MG 00:00: AND 1800 of tablet 00 Medicin e Melatonin 3 2019- Yes AT BEDTIME [facility] MG TABS 2- College 00:00: of 00 Medicin e metoprolol 2019- Yes TWICE [facility] (LOPRESSOR) 2-31 DAILY 0600 [facility] llege 25 MG 00:00: AND 1800 of tablet 00 Medicin e Apixaban 5 2018-07 Yes TWICE [facility] MG TABS 1-08 DAILY College 00:00: [...] Medicin e Apixaban 5 2018- Yes TWICE [facility] MG TABS 1-08 DAILY College 00:00: of 00 Medicin e Apixaban 5 2018- Yes TWICE [facility] MG TABS 1-08 DAILY College 00:00: of 00 Medicin e Apixaban 5 2018- Yes TWICE [facility] MG TABS 1-08 DAILY College 00:00: of 00 Medicin e Loratadine 2018- Yes DAILY [facility] 10 MG CAPS 1-07 College 00:00: of 00 Medicin e Loratadine 2018- Yes DAILY [facility] 10 MG CAPS 1-07 College 00:00: of 00 Medicin e Loratadine 2018- Yes DAILY [facility] 10 MG CAPS 1-07 College 00:00: of 00 Medicin e Loratadine 2018- Yes DAILY [facility] 10 MG CAPS -07 College 00:00: of 00 Medicin e Loratadine 2018- Yes DAILY [facility] 10 MG CAPS 1-07 College 00:00: of 00 Medicin e Loratadine 2018- Yes DAILY [facility] 10 MG CAPS 1-07 College 00:00: of 00 Medicin e Loratadine 2018- Yes DAILY [facility] 10 MG CAPS 1-07 College 00:00: of 00 Medicin e gabapentin 2019-0 Yes 300mg Take 1 Cap [facility] (NEURONTIN) 5-13 by mouth 3 Co llege 300 MG 00:00: times of capsule 00 daily. Medicin e gabapentin 2019-0 Yes 300mg Take 1 Cap [facility] (NEURONTIN) 5-13 by mouth 3 Co [facility]lege 300 MG 00:00: times of capsule 00 daily. Medicin e gabapentin 2019-0 Yes 300mg Take 1 Cap [facility] (NEURONTIN) 5-13 by mouth 3 [facility] 300 MG 00:00: times of capsule 00 daily. Medicin e gabapentin Yes 300mg Take 1 Cap [facility] (NEURONTIN) 5-13 by mouth 3 [facility] 300 MG 00:00: times of capsule 00 daily. Medicin e gabapentin 2020- No 300mg Take 1 Cap [facility] (NEURONTIN) 5-13 -19 by mouth 3 [facility] 300 MG 00:00: 00:00 times of capsule 00 :00 daily. Medicin e gabapentin 2020- No 300mg Take 1 [facility] (NEURONTIN) 5-13 -19 by mouth 3 [facility] 300 MG 00:00: 00:00 times of capsule 00 :00 daily. Medicin e mirtazapine Yes 15mg Take 15 mg [facility] (REMERON) 2-12 by mouth [facility] 15 MG 18:03: nightly. of tablet Medicin e aspirin 81 Yes 81mg Take 81 mg [facility] MG tablet 2-12 by mouth [facility] e 18:03: daily. of Once daily Medicin e Tamsulosin Yes [id number] .4mg Take 0.4 [facility] HCl 0.4 MG 2-12 mg by [facility] CAPS 18:03: mouth. of Medicin e SODIUM Yes [id number] 10mg Take 10 mg [facility] BICARBONATE 2-12 by mouth 3 [facility] OR 18:03: times of 03 daily. Medicin Takes 3 e tabs by mouth three times a day citalopram Yes [id number] 20mg Take 20 mg [facility] (CELEXA) 20 2-12 by mouth [facility] MG tablet 18:03: daily. of Medicin e amlodipine Yes [id number] 2.5mg Take 2.5 [facility] (NORVASC) 2-12 mg by [facility] 2.5 MG 18:03: mouth of tablet 03 daily. Medicin e mirtazapine Yes 15mg QD Take [address] [facility] (REMERON) 9-25 [facility] 15 MG 11:49: nightly. Medical tablet 05 Center SODIUM Yes Q.[id number] Take by [facility] BICARBONATE 9-25 [id number] mouth 3 [facility] ORAL 11:49: 3D (three) [...] by mouth [facility] tablet 11:49: daily. Medical 05 [place] tamsulosin 2018-0 Yes .4mg QD Take 0.[address] [facility] (FLOMAX) 9-25 mg by [facility] 0.4 mg Cp24 11:49: mouth Medic al 24 hr 05 daily. [place] capsule citalopram 2017-0 Yes 20mg QD Take [address] [facility] (CELEXA) 20 9-25 by mouth [facility] MG tablet 11:49: daily. Medica l 05 [place] gabapentin 2018-0 Yes 300mg QD Take [address] (NEURONTIN) 9-25 mg by [facility] 300 MG 11:49: mouth Medical capsule 05 daily. [place] cilostazol 2017-0 Yes 50mg Q.5D Take [address] (PLETAL) 50 9-25 by mouth 2 [facility] MG tablet 11:49: (two) Medical 05 times Center daily. mirtazapine 2018-0 Yes 15mg QD Take [address] [facility] (REMERON) 9-25 by mouth [facility] 15 MG 11:49: nightly. Medical tablet 05 [place] SODIUM 2018-0 Yes Q.[id number] Take by [facility] BICARBONATE 9-25 [id number] mouth 3 [facility] ORAL 11:49: 3D (three) [...] by mouth [facility] tablet 11:49: daily. Medical 05 [place] tamsulosin 2018-0 Yes .4mg QD Take 0.[address] [facility] (FLOMAX) 9-25 mg by [facility] 0.4 mg Cp24 11:49: mouth Medic al 24 hr 05 daily. [place] capsule citalopram 2018-0 Yes 20mg QD Take [address] (CELEXA) 20 9-25 by mouth [facility] MG tablet 11:49: daily. Medica l 05 [place] gabapentin 2018-0 Yes 300mg QD Take [address] (NEURONTIN) 9-25 mg by [facility] 300 MG 11:49: mouth Medical capsule 05 daily. [place] cilostazol 2018-0 Yes 50mg Q.5D Take [address] (PLETAL) 50 9-25 by mouth 2 [facility] MG tablet 11:49: (two) Medical 05 times Center daily. mirtazapine 2018-0 Yes 15mg QD Take [address] [facility] (REMERON) 9-25 by mouth [facility] 15 MG 11:49: nightly. Medical tablet 05 [place] SODIUM 2018-0 Yes Q.[id number] Take by [facility] BICARBONATE 9-25 [id number] mouth 3 [facility] ORAL 11:49: 3D (three) Medical 05 times Center daily. acetaminoph 2018-0 Yes 500mg Take [address] en 9-25 mg by [facility] (TYLENOL) 11:49: mouth Medical 500 MG 05 every 6 [place] tablet (six) hours as needed for Pain. aspirin 81 2018-0 Yes 81mg QD Take [address] MG EC 9-25 by mouth [facility] tablet 11:49: daily. [address] tamsulosin 2018-0 Yes .4mg QD Take 0.[address] [facility] (FLOMAX) 9-25 mg by [facility] 0.4 mg Cp24 11:49: mouth Medic al 24 hr 05 daily. [place] capsule citalopram 2018-0 Yes 20mg QD Take [address] (CELEXA) 20 9-25 by mouth [facility] MG tablet 11:49: daily. Medica l 05 [place] gabapentin 2018-0 Yes 300mg QD Take [address] (NEURONTIN) 9-25 mg by [facility] 300 MG 11:49: mouth Medical capsule 05 daily. [place] cilostazol 2018-0 Yes 50mg Q.5D Take [address] (PLETAL) 50 9-25 by mouth 2 [facility] MG tablet 11:49: (two) Medical 05 times Center daily. mirtazapine 2018-0 Yes 15mg QD Take [address] [facility] (REMERON) 9-25 by mouth [facility] 15 MG 11:49: nightly. Medical tablet 05 [place] SODIUM 2018-0 Yes Q.[id number] Take by [facility] BICARBONATE 9-25 [id number] mouth 3 [facility] ORAL 11:49: 3D (three) [...] 9-25 by mouth [facility] tablet 11:49: daily. [address] tamsulosin 2018-0 Yes .4mg QD Take 0.[address] [facility] (FLOMAX) 9-25 mg by [facility] 0.4 mg Cp24 11:49: mouth Medic al 24 hr 05 daily. [place] capsule citalopram 2017-0 Yes 20mg QD Take [address] (CELEXA) 20 9-25 by mouth [facility] MG tablet 11:49: daily. Medica l 05 [place] gabapentin 2018-0 Yes 300mg QD Take [address] (NEURONTIN) 9-25 mg by [facility] 300 MG 11:49: mouth Medical capsule 05 daily. [place] cilostazol 2018-0 Yes 50mg Q.5D Take [address] (PLETAL) 50 9-25 by mouth 2 [facility] MG tablet 11:49: (two) Medical 05 times Center daily. mirtazapine 2018-0 Yes 15mg QD Take [address] [facility] (REMERON) 9-25 by mouth [facility] 15 MG 11:49: nightly. Medical tablet 05 [place] SODIUM 2018-0 Yes Q.[id number] Take by [facility] BICARBONATE 9-25 [id number] mouth 3 [facility] ORAL 11:49: 3D (three) [...] by mouth [facility] tablet 11:49: daily. Medical [address] [place] [address] tamsulosin 2018-0 Yes .4mg QD Take 0.[address] [facility] [address] (FLOMAX) 9-25 mg by [facility] 0.4 mg Cp24 11:49: mouth Medic al 24 hr 05 daily. [place] capsule citalopram 2018-0 Yes 20mg QD Take [address] (CELEXA) 20 9-25 by mouth [facility] MG tablet 11:49: daily. Medica l [address] [place] [address] gabapentin 2018-0 Yes 300mg QD Take [address] (NEURONTIN) 9-25 mg by [facility] 300 MG 11:49: mouth Medical capsule 05 daily. [place] cilostazol 2018-0 Yes 50mg Q.5D Take [address] (PLETAL) 50 9-25 by mouth 2 [facility] MG tablet 11:49: (two) Medical 05 times [place] daily. mirtazapine 2018-0 Yes 15mg QD Take [address] [facility] (REMERON) 9-25 by mouth [facility] 15 MG 11:49: nightly. Medical tablet [address] [place] [address] SODIUM 2018-0 Yes Q.[id number] Take by [facility] BICARBONATE 9-25 [id number] mouth 3 [facility] ORAL 11:49: 3D (three) Medical 05 times [place] daily. acetaminoph 2018-0 Yes 500mg Take [address] en 9-25 mg by [facility] (TYLENOL) 11:49: mouth Medical 500 MG 05 every 6 [place] tablet (six) hours as needed for Pain. aspirin 81 2018-0 Yes 81mg QD Take [address] MG EC 9-25 by mouth [facility] tablet 11:49: daily. [address] tamsulosin 2018-0 Yes .4mg QD Take 0.[address] [facility] (FLOMAX) 9-25 mg by [facility] 0.4 mg Cp24 11:49: mouth Medic al 24 hr 05 daily. [place] capsule citalopram 2018-0 Yes 20mg QD Take [address] (CELEXA) 20 9-25 by mouth [facility] MG tablet 11:49: daily. Medica [address] gabapentin 2018-0 Yes 300mg QD Take [address] (NEURONTIN) 9-25 mg by [facility] 300 MG 11:49: mouth Medical capsule 05 daily. [place] cilostazol 2018-0 Yes 50mg Q.5D Take [address] (PLETAL) 50 9-25 by mouth 2 [facility] MG tablet 11:49: (two) Medical 05 times Center daily. clopidogrel 2018-0 Yes 75mg QD Take [address] [facility] (PLAVIX) 75 9-24 by mouth [facility] mg tablet 15:49: daily. [address] clopidogrel 2018-0 Yes 75mg QD Take [address] [facility] (PLAVIX) 75 9-24 by mouth [facility] mg tablet 15:49: daily. [address] clopidogrel 2018-0 Yes 75mg QD Take [address] [facility] (PLAVIX) 75 9-24 by mouth [facility] mg tablet 15:49: daily. [address] clopidogrel 2018-0 Yes 75mg QD Take [address] [facility] (PLAVIX) 75 9-24 by mouth [facility] mg tablet 15:49: daily. [address] clopidogrel 2018-0 Yes 75mg QD Take [address] [facility] (PLAVIX) 75 9-24 by mouth [facility] mg tablet 15:49: daily. [address] clopidogrel 2018-0 Yes 75mg QD Take [address] [facility] (PLAVIX) 75 9-24 by mouth [facility] mg tablet 15:49: daily. [address] sodium 2018-0 Yes 1{tbl} Q.[id number] Take [address] bicarbonate 9-24 [id number] tablet by [facility] 650 MG 14:34: 3D mouth 3 Medical tablet 41 (three) Center times daily. amLODIPine 2018-0 Yes 2.5mg QD Take 2.[address] (NORVASC) 9-24 mg by [facility] 2.5 MG 14:34: mouth Medical tablet 41 daily. [place] citalopram 2017-0 Yes 20mg QD Take [address] (CELEXA) 20 9-24 by mouth [facility] MG tablet 14:34: daily. [address] aspirin 81 2018-0 Yes 81mg QD Take [address] MG EC 9-24 by mouth [facility] tablet 14:34: daily. [address] cilostazol 2018-0 Yes 50mg Q.5D Take [address] (PLETAL) 50 9-24 by mouth 2 [facility] MG tablet 14:34: (two) Medical 41 times Center daily. sodium 2018-0 Yes 1{tbl} Q.[id number] Take [address] bicarbonate 9-24 [id number] tablet by [facility] 650 MG 14:34: 3D mouth 3 Medical tablet 41 (three) Center times daily. amLODIPine 2018-0 Yes 2.5mg QD Take 2.[address] (NORVASC) 9-24 mg by [facility] 2.5 MG 14:34: mouth Medical tablet 41 daily. [place] citalopram 2018-0 Yes 20mg QD Take [address] (CELEXA) 20 9-24 by mouth [facility] MG tablet 14:34: [facility]. [facility] [address] aspirin 81 2018-0 Yes 81mg QD Take [address] MG EC 9-24 by mouth [facility] tablet 14:34: daily. [address] cilostazol 2018-0 Yes 50mg Q.5D Take [address] (PLETAL) 50 9-24 by mouth 2 [facility] MG tablet 14:34: (two) Medical 41 times Center daily. sodium 2018-0 Yes 1{tbl} Q.[id number] Take [address] bicarbonate 9-24 [id number] tablet by [facility] 650 MG 14:34: 3D mouth 3 Medical tablet 41 (three) Center times daily. amLODIPine 2018-0 Yes 2.5mg QD Take 2.[address] (NORVASC) 9-24 mg by [facility] 2.5 MG 14:34: mouth Medical tablet 41 daily. [place] citalopram 2018-0 Yes 20mg QD Take [address] (CELEXA) 20 9-24 by mouth [facility] MG tablet 14:34: daily. [address] aspirin 81 2018-0 Yes 81mg QD Take [address] MG EC 9-24 by mouth [facility] tablet 14:34: daily. [address] cilostazol 2018-0 Yes 50mg Q.5D Take [address] (PLETAL) 50 9-24 by mouth 2 [facility] MG tablet 14:34: (two) Medical 41 times Center daily. sodium 2018-0 Yes 1{tbl} Q.[id number] Take [address] bicarbonate 9-24 [id number] tablet by [facility] 650 MG 14:34: 3D mouth 3 Medical tablet 41 (three) Center times daily. amLODIPine 2018-0 Yes 2.5mg QD Take 2.[address] (NORVASC) 9-24 mg by [facility] 2.5 MG 14:34: mouth Medical tablet 41 daily. [place] citalopram 2018-0 Yes 20mg QD Take [address] (CELEXA) 20 9-24 by mouth [facility] MG tablet 14:34: daily. [address] aspirin 81 2018-0 Yes 81mg QD Take [address] MG EC 9-24 by mouth [facility] tablet 14:34: daily. [address] cilostazol 2018-0 Yes 50mg Q.5D Take [address] (PLETAL) 50 9-24 by mouth 2 [facility] MG tablet 14:34: (two) Medical 41 times Center daily. sodium 2018-0 Yes 1{tbl} Q.[id number] Take [address] bicarbonate 9-24 [id number] tablet by [facility] 650 MG 14:34: 3D mouth 3 Medical tablet 41 (three) Center times daily. amLODIPine 2018-0 Yes 2.5mg QD Take 2.[address] (NORVASC) 9-24 mg by [facility] 2.5 MG 14:34: mouth Medical tablet 41 daily. [place] citalopram 2018-0 Yes 20mg QD Take [address] (CELEXA) 20 9-24 by mouth [facility] MG tablet 14:34: daily. [address] aspirin 81 2018-0 Yes 81mg QD Take [address] MG EC 9-24 by mouth [facility] tablet 14:34: daily. [address] cilostazol 2018-0 Yes 50mg Q.5D Take [address] (PLETAL) 50 9-24 by mouth 2 [facility] MG tablet 14:34: (two) Medical 41 times [place] daily. amLODIPine 2018-0 Yes 2.5mg QD Take 2.[address] (NORVASC) 9-24 mg by [facility] 2.5 MG 14:34: mouth Medical tablet 41 daily. [place] citalopram 2018-0 Yes 20mg QD Take [address] (CELEXA) 20 9-24 by mouth [facility] MG tablet 14:34: daily. [address] aspirin 81 2018-0 Yes 81mg QD Take [address] MG EC 9-24 by mouth [facility] tablet 14:34: daily. [address] cilostazol 2018-0 Yes 50mg Q.5D Take [address] (PLETAL) 50 9-24 by mouth 2 [facility] MG tablet 14:34: (two) Medical 41 times Center daily. sodium 2018-0 Yes 1{tbl} Q.[id number] Take [address] bicarbonate 04-12 [id number] tablet by [facility] 650 MG 14:34: 3D mouth 3 Medical tablet 41 (three) Center times daily. gabapentin 2018-0 Yes Q.5D 2 (two) [facility] (NEURONTIN) 9-02 times [facility] 300 MG 00:00: daily. Medical capsule 00 Center gabapentin 2018-0 Yes Q.5D 2 (two) [facility] (NEURONTIN) 9-02 times [facility] 300 MG 00:00: daily. Medical capsule 00 Center gabapentin 2018-0 Yes Q.5D 2 (two) [facility] (NEURONTIN) 9-02 times [facility] 300 MG 00:00: daily. Medical capsule 00 [place] gabapentin 2018-0 Yes Q.5D 2 (two) [facility] (NEURONTIN) 9-02 times [facility] 300 MG 00:00: daily. Medical capsule [address] [place] [address] gabapentin 2018-0 Yes Q.5D 2 (two) [facility] (NEURONTIN) 9-02 times [facility] 300 MG 00:00: daily. Medical capsule 00 [place] gabapentin 2018-0 Yes Q.5D 2 (two) [facility] (NEURONTIN) 9-02 times [facility] 300 MG 00:00: daily. Medical capsule 00 [place] cilostazol 2018-0 Yes 50mg Take 1 Tab [facility] (PLETAL) 50 3-26 by mouth [facility] MG tablet 00:00: two times of 00 daily. Medicin e Naftifine 2018-0 Yes 20mg Apply 20 [facility] HCl 2 % 3-26 mg [facility] CREA 00:00: topically of 00 3 times [...] [facility] HCl 2 % 3-26 mg [facility] 00:00: topically of 00 3 times Medicin daily. e amLODIPine 2018-0 Yes 2.5mg QD Take 1 [...] by Center mouth daily. mupirocin 2017-0 Yes [facility] (BACTROBAN) [facility] 2 % 00:00: of ointment 00 Medicin e mupirocin 2017-0 Yes [facility] (BACTROBAN) [facility] 2 % 00:00: of ointment 00 Medicin e mupirocin 2017-0 Yes [facility] (BACTROBAN) [facility] 2 % 00:00: of ointment 00 Medicin e mupirocin 2017-0 Yes [facility] (BACTROBAN) [facility] 2 % 00:00: of ointment 00 Medicin e mupirocin 2017-0 Yes [facility] (BACTROBAN) [facility] 2 % 00:00: of ointment 00 Medicin e mupirocin 2017-0 Yes [facility] (BACTROBAN) 02-01 [facility] 2 % 00:00: of ointment 00 Medicin e mupirocin 2017-0 Yes [facility] (BACTROBAN) 02-01 [facility] 2 % 00:00: of ointment 00 Medicin e mupirocin 2017-0 Yes [facility] (BACTROBAN) 02-01 [facility] 2 % 00:00: of ointment 00 Medicin e mupirocin 2017-0 Yes [facility] (BACTROBAN) 02-01 [facility] 2 % 00:00: of ointment 00 Medicin e mupirocin 2017-0 Yes [facility] (BACTROBAN) 02-01 [facility] 2 % 00:00: of ointment 00 Medicin e mupirocin 2017-0 Yes [facility] (BACTROBAN) 02-01 [facility] 2 % 00:00: of ointment 00 Medicin e mupirocin 2017-0 Yes [facility] (BACTROBAN) 02-01 [facility] 2 % 00:00: of ointment 00 Medicin e mupirocin 2017-0 Yes [facility] (BACTROBAN) 02-01 [facility] 2 % 00:00: of ointment 00 Medicin e mupirocin 2017-0 Yes [facility] (BACTROBAN) 02-01 [facility] 2 % 00:00: of ointment 00 Medicin e mupirocin 2017-0 Yes [facility] (BACTROBAN) 02-01 [facility] 2 % 00:00: of ointment 00 Medicin e levoFLOXaci 2017-0 Yes 250mg Take 250 M ethodi n 1-[address] (LEVAQUIN) 11:08: mouth. Hospi ta 500 MG 31 l tablet tamsulosin 2017-0 Yes .4mg Take 0.4 [facility] (FLOMAX[facility] 1-[address] 0.4 mg 11:08: mouth. [facility]ospita capsule,ext 31 l ended release 24hr levoFLOXaci 2017-0 Yes 250mg Take 250 M ethodi n 1-[address] (LEVAQUIN) 11:08: mouth. Hospi ta 500 MG 31 l tablet tamsulosin 2017-0 Yes .4mg Take 0.4 [facility] (FLOMAX) 1-[address] 0.4 mg 11:08: mouth. [facility]ospita capsule,ext 31 l ended release 24hr levoFLOXaci 2017-0 Yes 250mg Take 250 M ethodi n 1-[address] (LEVAQUIN) 11:08: mouth. Hospi ta 500 MG 31 l tablet tamsulosin 2017-0 Yes .4mg Take 0.4 [facility] (FLOMAX) 1-[address] 0.4 mg 11:08: mouth. Hospita capsule,ext 31 l ended release 24hr levoFLOXaci 2017-0 Yes 250mg Take 250 M ethodi n 1-[address] (LEVAQUIN) 11:08: mouth. Hospi ta 500 MG 31 l tablet tamsulosin 2017-0 Yes .4mg Take 0.4 [facility] (FLOMAX) 1-[address] 0.4 mg 11:08: mouth. [facility]ospita capsule,ext 31 l ended release 24hr levoFLOXaci 2017-0 Yes 250mg Take 250 M ethodi n 1-[address] (LEVAQUIN) 11:08: mouth. Hospi ta 500 MG 31 l tablet tamsulosin 2017-0 Yes .4mg Take 0.4 [facility] (FLOMAX) 1-[address] 0.4 mg 11:08: mouth. [facility]ospita capsule,ext 31 l ended release 24hr levoFLOXaci 2017-0 Yes 250mg Take 250 M ethodi n 1-[address] (LEVAQUIN) 11:08: mouth. Hospi ta 500 MG 31 l tablet tamsulosin 2017-0 Yes .4mg Take 0.4 [facility] (FLOMAX) [...] l mirtazapine 2015-07 Yes [facility]REMERON[facility]30 [facility] 15 MG 00:00: Hospita tablet 00 l mirtazapine 2015-07 Yes [facility]ON[facility] 15 MG 00:00: Hospita tablet 00 l mirtazapine 2015-07 Yes [facility]ON[facility] 15 MG 00:00: Hospita tablet 00 l mirtazapine 2015-07 Yes [facility]REM[facility]ON[facility] 15 MG 00:00: Hospita tablet 00 l mirtazapine 2015-07 Yes [facility] (REM[facility]ON[facility] 15 MG 00:00: Hospita tablet 00 l mirtazapine 2015-07 Yes [facility] (REMERON[facility]30 [facility] 15 MG 00:00: Hospita tablet 00 [...] GM/60ML wednesdays e suspension , fridays atorvastati 0 Yes 10mg Take 1 Tab [facility] (LIPITOR) 2-09 by mouth [facility] 10 MG 00:00: daily. of tablet 00 Medicin e atorvastati 0 Yes 10mg Take 1 Tab [facility] n (LIPITOR) 2-09 by mouth [facility] 10 MG 00:00: daily. of tablet 00 Medicin e atorvastati 0 Yes 10mg Take 1 Tab [facility] n (LIPITOR) 2-09 by mouth [facility] 10 MG 00:00: daily. of tablet 00 Medicin e atorvastati 0 Yes 10mg Take 1 Tab [facility] n (LIPITOR) 2-09 by mouth [facility] 10 MG 00:00: daily. of tablet 00 Medicin e atorvastati 0 Yes 10mg Take 1 Tab [facility] n (LIPITOR) 2-09 by mouth [facility] 10 MG 00:00: daily. of tablet 00 Medicin e atorvastati 0 Yes 10mg Take 1 Tab [facility] (LIPITOR) 2-09 by mouth [facility] 10 MG 00:00: daily. of tablet 00 Medicin e atorvastati 0 Yes 10mg Take 1 Tab [facility] n (LIPITOR) 2-09 by mouth [facility] 10 MG 00:00: daily. of tablet 00 Medicin e atorvastati Yes 10mg Take 1 Tab [facility] n (LIPITOR) 2-09 by mouth [facility] 10 MG 00:00: daily. of tablet 00 Medicin e atorvastati Yes 10mg Take 1 Tab [facility] (LIPITOR) 2-09 by mouth [facility] 10 MG 00:00: daily. of tablet 00 Medicin e atorvastati Yes 10mg Take 1 Tab [facility] n (LIPITOR) 2-09 by mouth [facility] 10 MG 00:00: daily. of tablet 00 Medicin e atorvastati Yes 10mg Take 1 Tab [facility] n (LIPITOR) 2-09 by mouth [facility] 10 MG 00:00: daily. of tablet 00 Medicin e atorvastati Yes 10mg Take 1 Tab [facility] n (LIPITOR) 2-09 by mouth Stephen [...] 00:00: daily. of tablet 00 Medicin e aspirin aspirin No aspirin [facility] Immunizations Ordered Immunization Filled Immunization Date Status Commen ts Source Name Name Influenza Hd 2020-08-23 Completed [facility] 00:[facility]:00 of Medicine Influenza Hd 2020-08-23 Completed [facility] 00:[facility]:00 of Medicine Influenza Hd 2020-08-23 Completed [facility] 00:00:00 of Medicine Influenza Hd 2020-08-23 Completed [facility] 00:00:00 of Medicine Influenza Hd 2020-08-23 Completed [facility] 00:00:00 of Medicine Influenza Hd 2020-08-23 Completed [facility] 00:00:00 of Medicine Influenza Hd 2020-08-23 Completed [facility] 00:00:00 of Medicine Influenza Hd 2020-08-23 Completed [facility] 00:00:00 of Medicine Influenza Hd 2020-08-23 Completed [facility] 00:00:00 of Medicine Influenza Hd 2020-08-23 Completed [facility] 00:00:00 of Medicine Influenza Hd 2020-08-23 Completed [facility] 00:00:00 of Medicine Influenza Hd 2020-08-23 Completed [facility] 00:00:00 of Medicine Influenza Hd 2020-08-23 Completed [facility] 00:00:00 of Medicine Influenza Hd 2020-08-23 Completed [facility] 00:00:00 of Medicine Influenza Hd 2020-08-23 Completed [facility] 00:00:00 of Medicine Pneumococcal 2018-10-22 Completed [facility] Polysaccharide 00:00:00 of Medicin e Zoster Recombinant 2018-10-22 Completed [facility] 00:00:00 of Medicine Pneumococcal 2018-10-22 Completed [facility] Polysaccharide 00:00:00 of Medicin e Zoster Recombinant 2018-10-22 Completed [facility] 00:00:00 of Medicine Pneumococcal 2015-06-29 Completed [...] Medical Ce nter (Pneumovax) Pneumococcal 2015-06-29 Completed [facility] Polysaccharide 00:00:00 of Medicin e Pneumococcal 2015-06-29 Completed [facility] Polysaccharide 00:00:00 of Medicin e Vital Signs Vital Name Observation Time Observation Value Comments Source BP Diastolic 2022-07-29 00:00:00 [facility] 00:00:00 64 [in_i] [facility] BMI (Body Mass Index) 2022-07-29 00:00:00 29.9 kg/m2 [facility] BP Systolic 2022-07-29 00:00:00 110 mm[Hg] [facility] Body Weight 2022-07-29 00:00:00 174 [lb_av] [facility] Systolic blood 2022-01-06 13:46:00 126 mm[Hg] [facility] pressure Medicine Diastolic blood 2022-01-06 13:46:00 65 mm[Hg] [facility] pressure Medicine Heart rate 2022-01-06 13:46:00 51 /min [facility] Body height 2022-01-06 13:46:00 [facility] 2021-12-23 20:32:00 149 mm[Hg] [facility] pressure Medicine Diastolic blood 2021-12-23 20:32:00 67 mm[Hg] [facility] pressure Medicine Heart rate 2021-12-23 20:32:00 107 /min [facility] Respiratory rate 2021-12-23 20:32:00 16 /min [facility] Body height 2021-12-23 20:32:00 [facility]1 [facility] Body weight 2021-12-23 20:32:00 83[facility]915 [facility] BMI 2021-12-23 20:32:00 30.79 kg/m2 [facility] Systolic blood 2021-08-27 18:15:00 157 mm[Hg] [facility] pressure Medicine Diastolic blood 2021-08-27 18:15:00 83 mm[Hg] [facility] pressure Medicine Heart rate 2021-08-27 18:15:00 53 /min [facility] Body temperature 2021-08-27 18:15:00 36.44 [place]na [facility] Body height 2021-08-27 18:15:00 165.1 [facility] Systolic blood 2021-06-24 20:19:00 138 mm[Hg] [facility] pressure Medicine Diastolic blood 2021-06-24 20:19:00 57 mm[Hg] [facility] Medicine Heart rate 2021-06-24 20:19:00 61 /min [facility] Body temperature 2021-06-24 20:19:00 36.44 Tatianna [facility] Body height 2021-06-24 20:19:00 165.1 cm [facility] Body weight 2021-06-24 20:19:00 83.915 kg [facility] BMI 2021-06-24 20:19:00 30.79 kg/m2 [facility] Systolic blood 2021-04-15 18:28:00 115 mm[Hg] [facility] pressure Medicine Diastolic blood 2021-04-15 18:28:00 55 mm[Hg] [facility] Medicine Heart rate 2021-04-15 18:28:00 50 /min [facility] Systolic blood 2021-03-15 19:03:00 128 mm[Hg] [facility] pressure Medicine Diastolic blood 2021-03-15 19:03:00 72 mm[Hg] [facility] Medicine Heart rate 2021-03-15 19:03:00 66 /min [facility] Body temperature 2021-03-15 19:03:00 36.44 Tatianna [facility] Body height 2021-03-15 19:03:00 165.1 cm [facility] Body weight 2021-03-15 19:03:00 84.278 [facility] BMI 2021-03-15 19:03:00 30.92 kg/m2 [facility] Systolic blood 2021-01-09 16:09:00 116 mm[Hg] [facility] pressure Medicine Diastolic blood 2021-01-09 16:09:00 64 mm[Hg] [facility] pressure Medicine Heart rate 2021-01-09 16:09:00 59 /min [facility] Respiratory rate 2021-01-09 16:09:00 18 /min [facility] Body height 2021-01-09 16:09:00 165.1 cm [facility] Body weight 2021-01-09 16:09:00 82.555 kg [facility] BMI 2021-01-09 16:09:00 30.29 kg/m2 [facility] Systolic blood 2020-12-21 20:03:00 115 mm[Hg] [facility] pressure Medicine Diastolic blood 2020-12-21 20:03:00 57 mm[Hg] [facility] pressure Medicine Heart rate 2020-12-21 20:03:00 57 /min [facility] Body temperature 2020-12-21 20:03:00 36.78 Tatianna [facility] Body height 2020-12-21 20:03:00 165.1 cm [facility] Body weight 2020-12-21 20:03:00 82.918 kg [facility] BMI 2020-12-21 20:03:00 30.42 kg/m2 [facility] Systolic blood 2020-11-05 20:40:00 122 mm[Hg] [facility] pressure Medicine Diastolic blood 2020-11-05 20:40:00 64 mm[Hg] [facility] pressure Medicine Heart rate 2020-11-05 20:40:00 72 /min [facility] Body height 2020-11-05 20:40:00 165.1 cm [facility] Body weight 2020-11-05 20:40:00 76.204 kg [facility] BMI 2020-11-05 20:40:00 27.96 kg/m2 [facility] Systolic blood 2020-10-31 16:14:00 122 mm[Hg] [facility] pressure Medicine Diastolic blood 2020-10-31 16:14:00 69 mm[Hg] [facility] pressure Medicine Heart rate 2020-10-31 16:14:00 71 /min [facility] Body height 2020-10-31 16:14:00 165.1 cm [facility] Body weight 2020-10-31 16:14:00 76.204 kg [facility] BMI 2020-10-31 16:14:00 27.96 kg/m2 [facility] Systolic blood 2020-09-26 16:52:00 147 mm[Hg] [facility] pressure Medicine Diastolic blood 2020-09-26 16:52:00 61 mm[Hg] [facility] pressure Medicine Heart rate 2020-09-26 16:52:00 58 /min [facility] Body height 2020-09-26 16:52:00 165.1 cm [facility] Body weight 2020-09-26 16:52:00 76.204 kg [facility] BMI 2020-09-26 16:52:00 27.96 kg/m2 [facility] Systolic blood 2020-09-25 15:19:00 133 mm[Hg] [facility] pressure Medicine Diastolic blood 2020-09-25 15:19:00 65 mm[Hg] [facility] pressure Medicine Heart rate 2020-09-25 15:19:00 69 /min [facility] Body temperature 2020-09-25 15:19:00 36.89 Tatianna [facility] Body height 2020-09-25 15:19:00 165.1 cm [facility] Body weight 2020-09-25 15:19:00 76.295 kg [facility] BMI 2020-09-25 15:19:00 27.99 kg/m2 [facility] Systolic blood 2020-09-24 16:04:00 127 mm[Hg] [facility] pressure Medicine Diastolic blood 2020-09-24 16:04:00 58 mm[Hg] [facility] pressure Medicine Heart rate 2020-09-24 16:04:00 55 /min [facility] Body height 2020-09-24 16:04:00 165.1 cm [facility] Systolic blood 2020-08-23 15:19:00 126 mm[Hg] [facility] pressure Medicine Diastolic blood 2020-08-23 15:19:00 54 mm[Hg] [facility] pressure Medicine Heart rate 2020-08-23 15:19:00 47 /min [facility] Body temperature 2020-08-23 15:19:00 36.56 Tatianna [facility] Procedures Procedure Date / Time Performing Clinician Source Performed COMPREHENSIVE METABOLIC 2021-08-27 18:59:00 Alvina Zavala [facility] PANEL Medicine MAGNESIUM 2021-08-27 18:59:00 Alvina Zavala [facility] CBC W/AUTO DIFF WITH 2021-08-27 18:59:[address] [facility] PLATELETS [facility] CBC W/AUTO DIFF WITH 2021-08-27 12:59:00 [facility] PLATELETS [facility] COMPREHENSIVE METABOLIC 2021-08-27 12:59:00 [facility] MAGNESIUM 2021-08-27 12:59:00 [facility] PSA 2021-08-27 12:59:00 [facility] POCT URINALYSIS DIPSTICK 2021-06-24 00:00:00 Camille Pagan [facility] POCT URINALYSIS DIPSTICK 2021-06-24 00:00:00 [facility] Plan of Care Planned Activity Planned Date Details Comments Source Future Scheduled 2022-07-29 COVID-[address] Test 15:37:47 (#1) [code = Hospital COVID-19 VACCINE (#1)] Future Scheduled 2022-07-29 SHINGLES VACCINES (1 [facility] 15:37:47 of 2) [code = Hospital SHINGLES VACCINES (1 of 2)] Future Scheduled 2022-07-29 65+ PNEUMOCOCCAL [facility] Test 15:37:47 VACCINE (1 - PCV) Hospital [code = 65+ PNEUMOCOCCAL VACCINE (1 - PCV)] Future Scheduled 2022-07-29 INFLUENZA VACCINE Method ist Test 15:37:47 [code = INFLUENZA Hospital VACCINE] Diagnostic Test 2022-07-29 culture, urine + [place] [facility] Pending 00:00:00 sensitivity [code = Urology culture, urine + sensitivity] Diagnostic Test 2022-07-29 urinalysis, dipstick [place] [facility] Pending 00:00:00 [code = urinalysis, Urology dipstick] Future Scheduled 2022-07-03 COVID-[address] [...] [code = INFLUENZA Hospital VACCINE] Future Scheduled 2022-07-03 COVID-[address] [...] [code = INFLUENZA Hospital VACCINE] Future Scheduled 2022-07-03 COVID-[address] [...] Hospital VACCINE] Future Scheduled 2022-01-15 COVID-19 Vaccine [facility] Test 17:44:53 (#1) [code = of Medicine COVID-19 Vaccine (#1)] Future Scheduled 2022-01-15 TETANUS SHOT (ADULT) [employer] Test 17:44:53 [code = TETANUS SHOT of Medi cine (ADULT)] Future Scheduled 2022-01-15 ZOSTER VACCINE (2 of [employer] Test 17:44:53 2) [code = ZOSTER of Medicin e VACCINE (2 of 2)] Future Scheduled 2022-01-15 Pneumococcal 65+ (2 [employer] Test 17:44:53 - PCV) [code = of Medicine Pneumococcal 65+ (2 - PCV)] Future Scheduled 2022-01-15 MEDICARE AWV [facility] Test 17:44:53 (Initial) [code = of Medicin e MEDICARE AWV (Initial)] Future Scheduled 2022-01-15 FLU VACCINE > 6 [facility] Test 17:44:53 MONTHS [code = FLU of Medici ne VACCINE > 6 MONTHS] Future Scheduled 2022-01-15 FALL SCREEN [code = [employer] Test 17:44:53 FALL SCREEN] of Medicine Future Scheduled 2022-01-15 BMI FOLLOW UP PLAN [facility] Test 17:44:53 [code = BMI FOLLOW of Medici ne UP PLAN] Future Scheduled 2022-01-06 COVID-19 Vaccine [facility] Test 12:11:25 (#1) [code = of Medicine COVID-19 Vaccine (#1)] Future Scheduled 2022-01-06 TETANUS SHOT (ADULT) [facility] Test 12:11:25 [code = TETANUS SHOT of Medi cine (ADULT)] Future Scheduled 2022-01-06 ANNUAL DIABETIC [facility] Test 12:11:25 RETINOPATHY of Medicine SCREENING [code = ANNUAL DIABETIC RETINOPATHY SCREENING] Future Scheduled 2022-01-06 ZOSTER VACCINE (2 of [employer] Test 12:11:25 2) [code = ZOSTER of Medicin e VACCINE (2 of 2)] Future Scheduled 2022-01-06 Pneumococcal 65+ (2 [employer] Test 12:11:25 - PCV) [code = of Medicine Pneumococcal 65+ (2 - PCV)] Future Scheduled 2022-01-06 MEDICARE AWV [facility] Test 12:11:25 (Initial) [code = of Medicin e MEDICARE AWV (Initial)] Future Scheduled 2022-01-06 Diabetic foot [facility] Test 12:11:25 examination of Medicine (regime/therapy) [code = 858134653] Future Scheduled 2022-01-06 FLU VACCINE > 6 [facility] Test 12:11:25 MONTHS [code = FLU of Medici ne VACCINE > 6 MONTHS] Future Scheduled 2022-01-06 FALL SCREEN [code = [employer] Test 12:11:25 FALL SCREEN] of Medicine Future Scheduled 2022-01-06 BMI FOLLOW UP PLAN [facility] Test 12:11:25 [code = BMI FOLLOW of Medici ne UP PLAN] Future Scheduled 2022-01-06 US ARTERIAL LEGS 1 Occurrences [facility] Test 09:26:12 BILATERAL [code = starting of Medicin e 00810-7] 01/06/2022 until 01/06/2023 Future Scheduled 2021-09-10 CT CHEST ABDOMEN Expected: [facility] Test 00:00:00 PELVIS W CONTRAST 09/10/2021, of Medicin e [code = 05771-2] Expires: 08/27/2022 Future Scheduled 2021-08-27 PSA [code = 2857-1] [facility] Test 12:42:56 of Medicine Future Scheduled 2021-08-27 COVID-19 Vaccine (1) [facility] Test 12:16:36 [code = COVID-19 of Medicine Vaccine (1)] Future Scheduled 2021-08-27 TETANUS SHOT (ADULT) [employer] Test 12:16:36 [code = TETANUS SHOT of Medi cine (ADULT)] Future Scheduled 2021-08-27 ANNUAL DIABETIC [facility] Test 12:16:36 RETINOPATHY of Medicine SCREENING [code = ANNUAL DIABETIC RETINOPATHY SCREENING] Future Scheduled 2021-08-27 ZOSTER VACCINE (1 of [employer] Test 12:16:36 2) [code = ZOSTER of Medicin e VACCINE (1 of 2)] Future Scheduled 2021-08-27 FALL SCREEN [code = [employer] Test 12:16:36 FALL SCREEN] of Medicine Future Scheduled 2021-08-27 Pneumococcal 65+ (1 [employer] Test 12:16:36 of 1 - PPSV23) [code of Medi cine = Pneumococcal 65+ (1 of 1 - PPSV23)] Future Scheduled 2021-08-27 MEDICARE AWV [facility] Test 12:16:36 (Initial) [code = of Medicin e MEDICARE AWV (Initial)] Future Scheduled 2021-08-27 FLU VACCINE > 6 [facility] Test 12:16:36 MONTHS [code = FLU of Medici ne VACCINE > 6 MONTHS] Future Scheduled 2021-08-27 BMI FOLLOW UP PLAN [facility] Test 12:16:36 [code = BMI FOLLOW of Medici ne UP PLAN] Future Scheduled 2021-08-27 Diabetic foot [facility] Test 12:16:36 examination of Medicine (regime/therapy) [code = 810680390] Future Scheduled 2021-08-20 SHINGLES VACCINES Method ist [...] (1)] Future Scheduled 2021-07-03 COVID-19 Vaccine (1) [facility] Test 13:49:39 [code = COVID-19 of Medicine Vaccine (1)] Future Scheduled 2021-07-03 TETANUS SHOT (ADULT) [facility] Test 13:49:39 [code = TETANUS SHOT of Medi cine (ADULT)] Future Scheduled 2021-07-03 ANNUAL DIABETIC [facility] Test 13:49:39 RETINOPATHY of Medicine SCREENING [code = ANNUAL DIABETIC RETINOPATHY SCREENING] Future Scheduled 2021-07-03 ZOSTER VACCINE (1 of [employer] Test 13:49:39 2) [code = ZOSTER of Medicin e VACCINE (1 of 2)] Future Scheduled 2021-07-03 FALL SCREEN [code = [employer] [facility] 13:49:39 FALL SCREEN] of Medicine Future Scheduled 2021-07-03 Pneumococcal 65+ (1 [employer] Test 13:49:39 of 1 - PPSV23) [code of Medi cine = Pneumococcal 65+ (1 of 1 - PPSV23)] Future Scheduled 2021-07-03 MEDICARE AWV [facility] Test 13:49:39 (Initial) [code = of Medicin e MEDICARE AWV (Initial)] Future Scheduled 2021-07-03 FLU VACCINE > 6 [facility] Test 13:49:39 MONTHS [code = FLU of Medici ne VACCINE > 6 MONTHS] Future Scheduled 2021-07-03 BMI FOLLOW UP PLAN [employer] Test 13:49:39 [code = BMI FOLLOW of Medici ne UP PLAN] Future Scheduled 2021-07-03 Diabetic foot [facility] Test 13:49:39 examination of Medicine (regime/therapy) [code = [id number]] Future Scheduled 2021-04-23 COVID-19 Vaccine (1) [employer] Test 10:51:23 [code = COVID-19 of Medicine Vaccine (1)] Future Scheduled 2021-04-23 TETANUS SHOT (ADULT) [employer] Test 10:51:23 [code = TETANUS SHOT of Medi cine (ADULT)] Future Scheduled 2021-04-23 ANNUAL DIABETIC [facility] Test 10:51:23 RETINOPATHY of Medicine SCREENING [code = ANNUAL DIABETIC RETINOPATHY SCREENING] Future Scheduled 2021-04-23 ZOSTER VACCINE (1 of [employer] [facility] 10:51:23 2) [code = ZOSTER of Medicin e VACCINE (1 of 2)] Future Scheduled 2021-04-23 FALL SCREEN [code = [employer] Test 10:51:23 FALL SCREEN] of Medicine Future Scheduled 2021-04-23 MEDICARE AWV [facility] 10:51:23 (Initial) [code = of Medicin e MEDICARE AWV (Initial)] Future Scheduled 2021-04-23 FLU VACCINE > 6 [facility] Test 10:51:23 MONTHS [code = FLU of Medici ne VACCINE > 6 MONTHS] Future Scheduled 2021-04-23 BMI FOLLOW UP PLAN [employer] Test 10:51:23 [code = BMI FOLLOW of Medici ne UP PLAN] Future Scheduled 2021-04-23 Diabetic foot [facility] Test 10:51:23 examination of Medicine (regime/therapy) [code = 972839349] Future Scheduled 2021-04-23 COVID-19 Vaccine (1) [employer] [facility] 10:51:23 [code = COVID-19 of Medicine Vaccine (1)] Future Scheduled 2021-04-23 TETANUS SHOT (ADULT) [employer] Test 10:51:23 [code = TETANUS SHOT of Medi cine (ADULT)] Future Scheduled 2021-04-23 ANNUAL DIABETIC [facility] Test 10:51:23 RETINOPATHY of Medicine SCREENING [code = ANNUAL DIABETIC RETINOPATHY SCREENING] Future Scheduled 2021-04-23 ZOSTER VACCINE (1 of [employer] [facility] 10:51:23 2) [code = ZOSTER of Medicin e VACCINE (1 of 2)] Future Scheduled 2021-04-23 FALL SCREEN [code = [employer] [facility] 10:51:23 FALL SCREEN] of Medicine Future Scheduled 2021-04-23 MEDICARE AWV [facility] 10:51:23 (Initial) [code = of Medicin e MEDICARE AWV (Initial)] Future Scheduled 2021-04-23 FLU VACCINE > 6 [facility] Test 10:51:23 MONTHS [code = FLU of Medici ne VACCINE > 6 MONTHS] Future Scheduled 2021-04-23 BMI FOLLOW UP PLAN [employer] [facility] 10:51:23 [code = BMI FOLLOW of Medici ne UP PLAN] Future Scheduled 2021-04-23 Diabetic foot [facility] Test 10:51:23 examination of Medicine (regime/therapy) [code = 929061253] Future Scheduled 2021-04-15 MRI ABDOMEN W WO 1 Occurrences [employer] Test 14:13:28 CONTRAST [code = starting of Medicine 72052-4] 04/15/2021 until 04/15/2022 Future Scheduled 2021-04-15 MRI ABDOMEN W WO 1 Occurrences [facility] Test 14:13:28 CONTRAST [code = starting of Medicine 91890-9] 04/15/2021 until 04/15/2022 Future Scheduled 2021-03-16 COVID-19 Vaccine (1) [employer] Test 15:18:16 [code = COVID-19 of Medicine Vaccine (1)] Future Scheduled 2021-03-16 TETANUS SHOT (ADULT) [employer] Test 15:18:16 [code = TETANUS SHOT of Medi cine (ADULT)] Future Scheduled 2021-03-16 ANNUAL DIABETIC [facility] Test 15:18:16 RETINOPATHY of Medicine SCREENING [code = ANNUAL DIABETIC RETINOPATHY SCREENING] Future Scheduled 2021-03-16 ZOSTER VACCINE (1 of [employer] Test 15:18:16 2) [code = ZOSTER of Medicin e VACCINE (1 of 2)] Future Scheduled 2021-03-16 FALL SCREEN [code = [employer] Test 15:18:16 FALL SCREEN] of Medicine Future Scheduled 2021-03-16 MEDICARE AWV [facility] Test 15:18:16 (Initial) [code = of Medicin e MEDICARE AWV (Initial)] Future Scheduled 2021-03-16 FLU VACCINE > 6 [facility] Test 15:18:16 MONTHS [code = FLU of Medici ne VACCINE > 6 MONTHS] Future Scheduled 2021-03-16 BMI FOLLOW UP PLAN [facility] Test 15:18:16 [code = BMI FOLLOW of Medici ne UP PLAN] Future Scheduled 2021-03-16 Diabetic foot [facility] Test 15:18:16 examination of Medicine (regime/therapy) [code = 829982269] Future Scheduled 2021-03-15 CBC W/AUTO DIFF WITH Ordered: [employer] [facility] 14:42:00 PLATELETS [code = 03/15/2021 of Medicin e 38631-6] Future Scheduled 2021-03-15 COMPREHENSIVE Ordered: [facility] Test 14:42:00 METABOLIC PANEL 03/15/2021 of Medicine [code = 97695-5] Future Scheduled 2021-03-15 MAGNESIUM [code = Ordered: [facility] Test 14:42:00 98174-0] 03/15/2021 of Medicine Future Scheduled 2021-03-15 PSA [code = 2857-1] Ordered: [employer] [facility] 14:42:00 03/15/2021 of Medicine Future Scheduled 2021-01-15 COVID-19 Vaccine (1) [employer] [facility] 22:28:42 [code = COVID-19 of Medicine Vaccine (1)] Future Scheduled 2021-01-15 TETANUS SHOT (ADULT) [employer] [facility] 22:28:42 [code = TETANUS SHOT of Medi cine (ADULT)] Future Scheduled 2021-01-15 ZOSTER VACCINE (1 of [employer] Test 22:28:42 2) [code = ZOSTER of Medicin e VACCINE (1 of 2)] Future Scheduled 2021-01-15 FALL SCREEN [code = [employer] [facility] 22:28:42 FALL SCREEN] of Medicine Future Scheduled 2021-01-15 MEDICARE AWV [facility] 22:28:42 (Initial) [code = of Medicin e MEDICARE AWV (Initial)] Future Scheduled 2021-01-15 FLU VACCINE > 6 [facility] Test 22:28:42 MONTHS [code = FLU of Medici ne VACCINE > 6 MONTHS] Future Scheduled 2021-01-15 BMI FOLLOW UP PLAN [employer] [facility] 22:28:42 [code = BMI FOLLOW of Medici ne UP PLAN] Future Scheduled 2020-12-21 COVID-19 Vaccine (1) [employer] [facility] 15:10:48 [code = COVID-19 of Medicine Vaccine (1)] Future Scheduled 2020-12-21 TETANUS SHOT (ADULT) [employer] [facility] 15:10:48 [code = TETANUS SHOT of Medi cine (ADULT)] Future Scheduled 2020-12-21 ZOSTER VACCINE (1 of [employer] [facility] 15:10:48 2) [code = ZOSTER of Medicin e VACCINE (1 of 2)] Future Scheduled 2020-12-21 FALL SCREEN [code = [employer] [facility] 15:10:48 FALL SCREEN] of Medicine Future Scheduled 2020-12-21 MEDICARE AWV [employer] [facility] [employer] 15:10:48 (Initial) [code = of Medicin e MEDICARE AWV (Initial)] Future Scheduled 2020-12-21 FLU VACCINE > 6 [employer] Test 15:10:48 MONTHS [code = FLU of Medici ne VACCINE > 6 MONTHS] Future Scheduled 2020-12-21 BMI FOLLOW UP PLAN [employer] [facility] 15:10:48 [code = BMI FOLLOW of Medici ne UP PLAN] Future Scheduled TOMASA,POST-VOID Ordered: [facility] Test RES,US,NON-IMG [code 08/23/2020 of Medi cine = 78320] Future Scheduled COMPREHENSIVE Ordered: [facility] Test METABOLIC PANEL 08/23/2020 of Medicine [code = 77225-8] Future Scheduled CBC W/AUTO DIFF WITH Ordered: [employer] [facility] PLATELETS [code = 08/23/2020 of Medicin e 42780-0] Future Scheduled VITAMIN B12 [code = Ordered: [employer] [facility] 2132-9] 08/23/2020 of Medicine Future Scheduled COVID-19 Vaccine [facility] Evaluation [code = of Medici ne COVID-19 Vaccine Evaluation] Future Scheduled TETANUS SHOT (ADULT) [employer] [facility] [code = TETANUS SHOT of Medi cine (ADULT)] Future Scheduled BMI FOLLOW UP PLAN [employer] [facility] [code = BMI FOLLOW of Medici ne UP PLAN] Future Scheduled ZOSTER VACCINE (1 of [employer] [facility] 2) [code = ZOSTER of Medicin e VACCINE (1 of 2)] Future Scheduled FALL SCREEN [code = [employer] [facility] FALL SCREEN] of Medicine Future Scheduled PNEUMOVAX >=65 [facility] Test (PPSV23) [code = of Medicine PNEUMOVAX >=65 (PPSV23)] Future Scheduled MEDICARE IPPE [facility] Test (WELCOME TO [facility] MEDICARE) [code = MEDICARE IPPE (WELCOME TO MEDICARE)] Future Scheduled COVID-19 Vaccine [employer] [facility] Evaluation [code = of Medici ne COVID-19 Vaccine Evaluation] Future Scheduled TETANUS SHOT (ADULT) [employer] [facility] [code = TETANUS SHOT of Medi cine (ADULT)] Future Scheduled ZOSTER VACCINE (1 of [employer] [facility] 2) [code = ZOSTER of Medicin e VACCINE (1 of 2)] Future Scheduled FALL SCREEN [code = [employer] [facility] FALL SCREEN] of Medicine Future Scheduled MEDICARE IPPE [facility] Test (WELCOME TO of Medicine MEDICARE) [code = MEDICARE IPPE (WELCOME TO MEDICARE)] Future Scheduled BMI FOLLOW UP PLAN [employer] [facility] [code = BMI FOLLOW of Medici ne UP PLAN] Future Scheduled CBC W/AUTO DIFF WITH Ordered: [employer] [facility] PLATELETS [code = 09/25/2020 of Medicin e 73601-0] Future Scheduled COMPREHENSIVE Ordered: [facility] Test METABOLIC PANEL 09/25/2020 of Medicine [code = 24822-8] Future Scheduled MAGNESIUM [code = Ordered: [facility] Test 64818-9] 09/25/2020 of Medicine Future Scheduled PSA [code = 2857-1] Ordered: [employer] [facility] 09/25/2020 of Medicine Future Scheduled TESTOSTERONE [code = Ordered: [employer] [facility] 2986-8] 09/25/2020 of Medicine Future Scheduled COVID-19 Vaccine [facility] Evaluation [code = of Medici ne COVID-19 Vaccine Evaluation] Future Scheduled TETANUS SHOT (ADULT) [employer] [facility] [code = TETANUS SHOT of Medi cine (ADULT)] Future Scheduled ZOSTER VACCINE (1 of [employer] [facility] 2) [code = ZOSTER of Medicin e VACCINE (1 of 2)] Future Scheduled FALL SCREEN [code = [employer] [facility] FALL SCREEN] of Medicine Future Scheduled MEDICARE IPPE [facility] Test (WELCOME TO of Medicine MEDICARE) [code = MEDICARE IPPE (WELCOME TO MEDICARE)] Future Scheduled BMI FOLLOW UP PLAN [employer] [facility] [code = BMI FOLLOW of Medici ne UP PLAN] Future Scheduled TETANUS SHOT (ADULT) [employer] [facility] [code = TETANUS SHOT of Medi cine (ADULT)] Future Scheduled COVID-19 Vaccine (1) [employer] [facility] [code = COVID-19 of Medicine Vaccine (1)] Future Scheduled ZOSTER VACCINE (1 of [employer] [facility] 2) [code = ZOSTER of Medicin e VACCINE (1 of 2)] Future Scheduled FALL SCREEN [code = [employer] [facility] FALL SCREEN] of Medicine Future Scheduled MEDICARE IPPE [employer] [facility] (WELCOME TO [facility] MEDICARE) [code = MEDICARE IPPE (WELCOME TO MEDICARE)] Future Scheduled BMI FOLLOW UP PLAN [employer] [facility] [code = BMI FOLLOW of Medici ne UP PLAN] Future Scheduled TETANUS SHOT (ADULT) [employer] [facility] [code = TETANUS SHOT of Medi cine (ADULT)] Future Scheduled COVID-19 Vaccine (1) [employer] [facility] [code = COVID-19 of Medicine Vaccine (1)] Future Scheduled ZOSTER VACCINE (1 of [employer] [facility] 2) [code = ZOSTER of Medicin e VACCINE (1 of 2)] Future Scheduled FALL SCREEN [code = [employer] [facility] FALL SCREEN] of Medicine Future Scheduled MEDICARE AWV [facility] Test (Initial) [code = of Medicin e MEDICARE AWV (Initial)] Future Scheduled MEDICARE IPPE [facility] Test (WELCOME TO of Medicine MEDICARE) [code = MEDICARE IPPE (WELCOME TO MEDICARE)] Future Scheduled FLU VACCINE > 6 [facility] Test MONTHS [code = FLU of Medici ne VACCINE > 6 MONTHS] Future Scheduled BMI FOLLOW UP PLAN [employer] [facility] [code = BMI FOLLOW of Medici ne UP PLAN] Future Scheduled TETANUS SHOT (ADULT) [employer] [facility] [code = TETANUS SHOT of Medi cine (ADULT)] Future Scheduled COVID-19 Vaccine (1) [employer] [facility] [code = COVID-19 of Medicine Vaccine (1)] Future Scheduled ZOSTER VACCINE (1 of [employer] [facility] 2) [code = ZOSTER of Medicin e VACCINE (1 of 2)] Future Scheduled FALL SCREEN [code = [employer] [facility] FALL SCREEN] of Medicine Future Scheduled MEDICARE AWV [facility] Test (Initial) [code = of Medicin e MEDICARE AWV (Initial)] Future Scheduled FLU VACCINE > 6 [employer] [facility] MONTHS [code = FLU of Medici ne VACCINE > 6 MONTHS] Future Scheduled BMI FOLLOW UP PLAN [employer] [facility] [code = BMI FOLLOW of Medici ne UP PLAN] Future Scheduled UROFLOWMETRY [code = Ordered: [employer] [facility] 34278] 08/23/2020 of Medicine Future Scheduled US ARTERIAL LEGS 1 Occurrences [facility] Test BILATERAL [code = starting of Medicin e 61538-5] 11/05/2020 until 11/05/2021 Encounters Start End Encounter Admission Attending Care Care Encounter Source Date/Time Date/Time Type Type Clinicians Facility Department ID 2022-08-04 2022-08-04 [place] [id number] 00:00:00 00:00:00 [id number] [facility] 2022-07-30 2022-07-30 Outpatient [facility] [id number] [place] 00:00:00 00:00:00 [id number] [facility] 2022-07-30 2022-07-30 Outpatient [facility] [id number] [place] 00:00:00 00:00:00 [id number] [facility] 2022-07-30 2022-07-30 Outpatient [facility] [id number] [place] 00:00:00 00:00:00 [id number] [facility] 2022-07-29 2022-07-29 Outpatient [facility] [id number] [place] 00:00:00 00:00:00 51627 [facility] 2022-07-29 2022-07-29 [facility] [place] - [id number] Von jorge 00:00:00 00:00:00 Jarett Ivy MD: [facility] PABLO Baltazar - [address], [place] [address] , Ph. 2022-05-28 2022-05-28 Outpatient [facility] [id number] [place] 00:00:00 00:00:00 60098 [facility] 2022-05-28 2022-05-28 Outpatient [facility] [id number] [place] 00:00:00 00:00:00 50214 [facility] 2022-04-25 2022-04-25 Outpatient [facility] [id number] [place] 00:00:00 00:00:00 [id number] [facility] 2022-04-24 2022-04-24 Outpatient [facility] [id number] [place] 00:00:00 00:00:00 23388 [facility] 2022-01-06 2022-01-06 Office ROS MONDRAGON 1.2.840.114 [id number] [facility] 08:16:29 09:28:51 Visit CAMILA AMBULATOR 350.1.13.21 College Y 0.2.7.2.686 of [id number] [facility] najma 825 e 2021-12-23 2021-12-23 Office ROS Hastings 1.2.840.114 [id number] [facility] 15:45:00 16:32:08 Visit Dilip Solano AMBULATOR 350.1.13.21 College Y 0.2.7.2.686 of [id number] [facility] najma 825 e 2021-09-03 2021-09-03 Outpatient ANTOLIN LOPEZ SLE [id number] SLE 00:00:00 00:00:00 2021-09-03 2021-09-03 Outpatient ANTOLIN LOPEZ SLE [id number] SLE 00:00:00 00:00:00 2021-08-27 2021-08-27 Office SALLYGINANIKOCornelius [facility] 1.2.840.114 [id number] [facility] 10:54:21 14:23:50 Visit Arlyn 350.1.13.21 Co llege 0.2.7.2.686 of [id number] Medi najma 504 e 2021-08-27 2021-08-27 Outside Antolin Zavala [facility] [id number] [facility] 00:00:00 00:00:00 Orders [facility] 2021-08-27 2021-08-27 Outside Antolin Zavala [facility] [id number] [facility] 00:00:00 00:00:00 Orders [facility] 2021-06-24 2021-06-24 Office DENNIS, [facility] 1.2.840.114 [id number] [facility] 14:07:08 16:47:24 Visit CAMILLE AMBULATOR 350.1.13.21 College Y 0.2.7.2.686 of [id number] Medi najma 300 e 2021-06-07 2021-06-07 Outpatient ROS DE LEÓN [facility] [id number] [facility] 14:16:38 15:12:54 SUMI de leon of Medicin e 2021-05-01 2021-05-01 Outpatient [facility] [id number] [facility] 11:01:58 11:01:58 Pj de leon of Medicin e 2021-04-15 2021-04-15 Office Dennis [facility] 1.2.840.114 [id number] [facility] 13:18:52 16:01:31 Visit Camille E AMBULATOR 350.1.13.21 College Y 0.2.7.2.686 of [id number] Medi najma 300 e 2021-03-15 2021-03-15 Office Alvina Zavala [facility] 1.2.840.114 [id number] [facility] 13:15:19 15:00:44 Visit Edmerissa Arlyn 350.1.13.21 Co llege 0.2.7.2.686 of [id number] [facility] najma 530 e 2021-02-19 2021-02-19 Outpatient ROS VINES [facility] [id number] [facility] 16:05:08 19:30:10 JOAO Maguirelaura e of Medicin e 2021-01-09 2021-01-09 Office ROS HASTINGS 1.2.840.[id number] [place] [address] 10:32:34 12:59:37 Visit DILIP AMBULATOR 350.1.13.21 College Y 0.2.7.2.686 of [id number] [facility] najma 825 e 2020-12-21 2020-12-21 Office Alvina Zavala [facility] 1.2.840.114 [id number] [facility] 15:01:39 15:38:38 Visit Edmerissa SaleemNair 350.1.13.21 Co llege 0.2.7.2.686 of [id number] [facility] najma 530 e 2020-11-16 2020-11-[address] [facility] [id number] [facility] 00:00:00 00:00:00 Orders [facility] 2020-11-05 2020-11-05 Office ROS Leslie 1.2.840.114 [id number] [facility] 14:42:44 16:28:44 Visit Filipe AMBULATOR 350.1.13.21 College Phil Y 0.2.7.2.686 of [id number] [facility] najma 825 e 2020-10-31 2020-10-31 Office ROS Hastings 1.2.840.[id number] [place] [address] 10:49:37 13:41:16 Visit Dilip Solano AMBULATOR 350.1.13.21 College Y 0.2.7.2.686 of [id number] [facility] najma 825 e 2020-09-26 2020-09-26 Office ROS Hastings 1.2.840.114 [id number] [facility] 10:38:57 14:08:49 Visit Dilip Solano AMBULATOR 350.1.13.21 College Y 0.2.7.2.686 of [id number] [facility] najma 825 e 2020-09-25 2020-09-25 Office Alvina Zavala [facility] 1.2.840.114 [id number] [facility] 09:08:05 10:47:44 Visit Nikolai SaleemNair 350.1.13.21 Co llege 0.2.7.2.686 of [id number] [facility] najma 530 e 2020-09-24 2020-09-24 Office ROS Leslie 1.2.840.114 [id number] [facility] 08:40:42 08:55:42 Visit Filipe AMBULATOR 350.1.13.21 College Phil Y 0.2.7.2.686 of [id number] [facility] najma 825 e 2020-08-23 2020-08-23 Office Laura ROS 1.2.840.114 [id number] [facility] 08:42:29 08:57:29 Visit Joao Marrero AMBULATOR 350.1.13.21 College Y 0.2.7.2.686 of [id number] [facility] najma 300 e 2020-06-19 2020-06-19 Outpatient R DIONNA [facility] [id number] Univers 19:00:00 19:00:00 ADRIAN jerry [facility] 2020-06-19 2020-06-19 Laboratory Lab, [facility] Fam b I [facility] 1.2. 840.114 [id number] [facility] 16:32:43 16:52:43 Only [facility]io [facility] 350.1.13.10 ity of [place] 4.2.7.2.686 Watson as Professio [id number] [address] Office [facility] 2020-06-19 2020-06-19 Laboratory Lab, [facility] 1.2.840.114 [id number] 16:32:43 16:52:43 Only Fam Pob I Health 350.1.13.10 [place] 4.2.7.2.686 [facility] [id number] nal 044 Office Building One 2018-01-21 2018-01-21 Outpatient [facility] SLE [id number] SLE 00:00:00 00:00:00 Results Test Description Test Time [...] as young l/abnormal. EGFR (test code = 39639-8) See_Comment L [Automated message] The system which [...] as young l/abnormal. CALCIUM (test code = 30970-8) See_Comment [Automated message] The system which generated this result transmitted ref erence range: 8.5 - 10.5 MG/DL. T he reference range was not u sed to interpret this result as normal/abnormal. PROTEIN TOTAL (test code = See_Comment [Automated message] The system 2885-2) which generated this result transmitted ref erence range: 6.1 - 8.1 G/DL. The reference range was not used to interpret this result as young l/abnormal. ALBUMIN (test code = 42888-7) See_Comment [Automated message] The system which generated this result transmitted ref erence range: 3.4 - 4.8 G/DL. The reference range was not used to interpret this result as young l/abnormal. GLOBULINS, SERUM, TOTAL (test See_Comment [Automated message] The system code = 91774-2) which genera thierry this result transmitted ref [...] AST (SGOT) (test code = 39 U/L 7-56 1919-8) ALT (SGPT) (test code = 24 U/L 3-47 WHITNEY TING PERFORMED AT [facility] 1744-2) PATHOLOGY LABOR [employer] [facility]. [address], [place] [address] [place], [place] [address] CLIA NO. [id number] Unle ss Otherwise Indicated, All Testing Performed At: [facility] thology Formerly [facility], [address] [place], [place] [address] Commercial Fisher: María Avila M.D. CLIA Number [id number] [place] Accreditation [place] o. [id number] Lab Interpretation (test code Abnormal = 29583-7) [id number] 20:05:55 Test Item Value Reference Range Interpretation Comments MAGNESIUM (test code = See_[place] [address]-4) [facility]. [address] [facility] [place], [place] [address] CLIA NO. [id number] Unle ss Otherwise Indic ated, All Testing Perform ed At: [facility], [address] [place] [address] Laboratory Dire ctor: Brandy Tipton CLIA Number [id number] [employer] Accreditation [place] o. [id number] [Automated mess age] The system which ge nerated this result tra nsmitted reference range : 1.6 - 2.6 MG/DL. The refe rence range was not used to interpret this result as normal/abnormal . [facility]O DIFF WITH [id number] 19:28:36 Test Item Value Reference Range Interpretation Comments WHITE BLOOD CELL COUNT See_Comment [Aut omated message] (test code = 30613-1) The sy stem which generated this result transmitted ref erence range: 3.5 - 11 .0 K/UL. The refer ence range was not u sed to interpret this result as normal/abnor mal. RED BLOOD CELL COUNT See_Comment [Autom ated message] (test code = 34952-4) The sy stem which generated this result transmitted ref erence range: 4.50 - 6 .10 M/UL. The refer ence range was not u sed to interpret this result as normal/abnor mal. HEMOGLOBIN (test code = See_Comment [Au tomated message] 718-7) The system [employer] generated this result transmitted ref erence range: 13.5 - 1 7.0 G/DL. The refer ence range was not u sed to interpret this result as normal/abnor mal. HEMATOCRIT (test code = 46.2 % 40.0-51.0 36238-1) MEAN CORPUSCULAR VOLUME 90.1 fL 80.0-99.0 (test code = 69967-8) MEAN CORPUSCULAR 30.6 PG 25.0-33.0 HEMOGLOBIN (test code = 72498-5) MEAN CORPUSCULAR See_Comment [Automated message] HEMOGLOBIN CONC (test The sy stem which code = 84000-6) generated th is result transmitted ref erence range: 31.0 - 3 6.0 G/DL. The refer ence range was not u sed to interpret this result as normal/abnor mal. RED CELL DISTRIBUTION 14.5 % 11.5-15.0 WIDTH (test code = 58949-8) NEUTROPHILS % (test code 62 % = 51813-8) LYMPHOCYTES % (test code 29 % = 88335-3) MONOCYTES % (test code = 6 % 16495-5) EOSINOPHILS % (test code 3 % = 71472-1) BASOPHILS % (test code = 0 % 48424-0) PLATELET COUNT (test See_Comment TESTIN G PERFORMED AT code = 44279-5) CL[facility]ICAL [facility] knowNormal LABORATORIES, [facility]. [address], [place] [address] [place] [address] CLIA NO. [id number] [Aut omated message] The sy stem which generated this result transmit thierry reference range : 130 - 400 K/UL. The reference range was not used to int erpret this result as normal/abnormal . NEUTROPHILS ABSOLUTE See_Comment [Autom ated message] COUNT (test code = The syste m which 19058-6) generated this result transmitted ref erence range: 1.50 - 7 .50 K/UL. The refer ence range was not u sed to interpret this result as normal/abnor mal. LYMPHOCYTES ABSOLUTE See_Comment [Autom ated message] COUNT (test code = The syste m which 40546-0) generated this result transmitted ref erence range: 1.00 - 4 .00 K/UL. The refer ence range was not u sed to interpret this result as normal/abnor mal. MONOCYTES ABSOLUTE COUNT See_Comment [A utomated message] (test code = 63962-5) The sy stem which generated this result transmitted ref erence range: 0.20 - 1 .00 K/UL. The refer ence range was not u sed to interpret this result as normal/abnor mal. BASOPHILS ABSOLUTE COUNT See_Comment Un less Otherwise (test code = 07878-3) Indica thierry, All Testing Performed At: [facility], 9 200 [facility] [place] [address] Laborator y Director: María Avila M.D. CLIA Number [id number] Cap Accreditation N o. [id number] [Autom ated message] The sy stem which generated this result transmit thierry reference range : 0.00 - 0.20 K/UL. Th e reference range was not used to int erpret this result as normal/abnormal . [facility] [id number] 00:00:00 Test Item Value Reference Range Interpretation Comments COLOR UA (test code = 5778-6) Yellow YELLOW/STRAW CLARITY UA (test code = 20640-8) Cloudy CLEAR GLUCOSE UA (test code = 5792-7) Negative NEGATIVE BILIRUBIN UA (test code = 5770-3) Negative NEGATIVE KETONES UA (test code = 25020-8) Negative NEGATIVE SPECIFIC GRAVITY UA (test code [...] NEGATIVE REDUCING SUBSTANCES URINE (test code = 73514-7) [facility], SPINE, LUMBAR, COMPLETE (MIN 4 VIEWS)2018-04-12 10:47:00Reason for exam:->LEG PAINReason for exam:->BACK PAINReason for exam:->HIP PAINFINAL REPORT CLINICAL HISTORY: LEG PAINBACK PAINHIP PAIN TECHNIQUE: Five views of the lumbar spine. 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 There isno evidence for lumbar fracture or dislocation. There are multiple abdominal pelvic surgical clips. Signed: Tish Tena Verified Date/Time: 04/12/2018 10:47:57 Reading Location: [facility] Radiology Reading Room RAD, HIP, 2 VIEWS, [id number] 10:42:00Reason for exam:->LEG PAINReason for exam:->BACK PAINReason for exam:->HIP PAINFINAL REPORT CLINICAL HISTORY: LEG PAINBACK PAINHIP PAIN TECHNIQUE: 2 views of the right hip COMPARISON: None IMPRESSION: There are degenerative changes of the right hip without evidence of fracture or dislocation. Signed: Tish Tena Verified Date/Time: 04/12/2018 10:42:38 Reading Location: [facility] Radiology Reading Room URINALYSIS W/ [id number] 10:24:00 Test Item Value Reference Range Interpretation [...] Urine, Clean Catch = 2795) BASIC METABOLIC [id number] 10:05:00 Test Item Value Reference Range Interpretation [...] TO CALCULA TE ESTIMATED GFR. HEPATIC FUNCTION [id number] 09:44:00 Test Item Value Reference Range Interpretation [...] 347) hemolyzed CBC W/PLT COUNT & AUTO [id number] 09:27:00 Test Item Value Reference Range Interpretation [...] 0-1 PERCENT (BEAKER) (test code = 2801) [id number] 06:07:00 Test Item Value Reference Range Interpretation Comments PHOSPHORUS (BEAKER) (test code = 2.9 mg/dL 2.3-4.7 604) [id number] 06:07:00 Test Item Value Reference Range Interpretation Comments MAGNESIUM (BEAKER) (test code = 2.0 mg/dL 1.6-2.6 627) BASIC METABOLIC [id number] 06:07:00 Test Item Value Reference Range Interpretation [...] 0-0 (BEAKER) (test code = 413) POCT-GLUCOSE [id number] 08:10:00 Test Item Value Reference Range Interpretation Comments POC-GLUCOSE METER 109 mg/dL 70-110 TESTED AT [facility] 6720 (BEAKER) (test code = [place] 1538) [address] [id number] 05:39:00 Test Item Value Reference Range Interpretation Comments PHOSPHORUS (BEAKER) (test code = 3.2 mg/dL 2.3-4.7 604) [id number] 05:39:00 Test Item Value Reference Range Interpretation Comments MAGNESIUM (BEAKER) (test code = 2.1 mg/dL 1.6-2.6 627) BASIC METABOLIC [id number] 05:39:00 Test Item Value Reference Range Interpretation [...] 0-0 (BEAKER) (test code = 413) POCT-GLUCOSE [id number] 21:31:00 Test Item Value Reference Range Interpretation Comments POC-GLUCOSE METER 136 mg/dL 70-110 H TESTED AT [facility] 6720 (BEAKER) (test code = RUBINA LOPE[place] 1538) [address] [id number] 03:49:00 Test Item Value Reference Range Interpretation Comments PHOSPHORUS (BEAKER) (test code = 4.2 mg/dL 2.3-4.7 604) [id number] 03:49:00 Test Item Value Reference Range Interpretation Comments MAGNESIUM (BEAKER) (test code = 2.0 mg/dL 1.6-2.6 627) BASIC METABOLIC [id number] 03:49:00 Test Item Value Reference Range Interpretation [...] WBC 0-0 (BEAKER) (test code = 413) [id number] 15:06:00 Test Item Value Reference Range Interpretation Comments PARTIAL THROMBOPLASTIN TIME 31.2 seconds 22.5-36.0 (BEAKER) (test code = 760) BASIC METABOLIC [id number] 15:05:00 Test Item Value Reference Range Interpretation [...] (BEAKER) (test code = 412) PLATELET COUNT ([facility]) (test 146 K/CU MM 150-450 L code = 756) MEAN PLATELET VOLUME (BEAKER) 10.1 fL 9.4-12.4 (test code = 754) NUCLEATED RED BLOOD CELLS 0 /100 WBC 0-0 (AKER) (test code = 413) [id number] 12:59:00 Test Item Value Reference Range Interpretation Comments ACTIVATED CLOTTING TIME 120 sec TEST ED AT [place] [address] ([facility]) (test code = [place]UBINA [place] [facility]) [address] [id number] 12:59:00 Test Item Value Reference Range Interpretation Comments ACTIVATED CLOTTING TIME 230 sec TEST ED AT [place] [address] ([facility]) (test code = [place] [facility]) [address] [id number] 12:59:00 Test Item Value Reference Range Interpretation Comments ACTIVATED CLOTTING TIME 257 sec TEST ED AT [place] [address] ([facility]) (test code = [place] [facility]) [address] [id number] 12:59:00 Test Item Value Reference Range Interpretation Comments ACTIVATED CLOTTING TIME 246 sec TEST ED AT [place] [address] ([facility]) (test code = RUBINA Rosas [place] [address]) [address] [id number] 12:59:00 Test Item Value Reference Range Interpretation Comments ACTIVATED CLOTTING TIME 263 sec TEST ED AT [place] [address] ([facility]) (test code = [place] [facility]) [address] [id number] 12:59:00 Test Item Value Reference Range Interpretation Comments ACTIVATED CLOTTING TIME 263 sec TEST ED AT [facility] 6720 (BEAKER) (test code = [place] [address]) [address] BLOOD GAS, [id number] 11:14:00 Test Item Value Reference Range Interpretation [...] (test code = 1819) 55.0 % GLUCOSE-STAT [id number] 11:13:00 Test Item Value Reference Range Interpretation Comments GLUCOSE RANDOM (BEAKER) (test code 104 mg/dL 70-110 = 652) SODIUM NA-STAT [id number] 11:13:00 Test Item Value Reference Range Interpretation Comments SODIUM (BEAKER) (test code = 381) 137 meq/L 135-148 POTASSIUM-STAT [id number] 11:13:00 Test Item Value Reference Range Interpretation Comments POTASSIUM (BEAKER) (test code = 4.2 meq/L 3.6-5.5 379) HGB/HCT (H&H) - STAT [id number] 11:13:00 Test Item Value Reference Range Interpretation Comments HEMOGLOBIN (BEAKER) (test code = 14.1 g/dL 13.0-16.8 410) HEMATOCRIT (BEAKER) (test code = 41.0 % 40.0-50.0 411) CALCIUM, [id number] 11:13:00 Test Item Value Reference Range Interpretation Comments CALCIUM IONIZED (BEAKER) (test 1.12 mmol/L 1.12-1.27 code = 698) PH, BLOOD (BEAKER) (test code = 7.40 1810) GLUCOSE-STAT [id number] 10:14:00 Test Item Value Reference Range Interpretation Comments GLUCOSE RANDOM (BEAKER) (test code 105 mg/dL 70-110 = 652) SODIUM NA-STAT [id number] 10:14:00 Test Item Value Reference Range Interpretation Comments SODIUM (BEAKER) (test code = 381) 135 meq/L 135-148 POTASSIUM-STAT [id number] 10:14:00 Test Item Value Reference Range Interpretation Comments POTASSIUM (BEAKER) (test code = 4.4 meq/L 3.6-5.5 379) HGB/HCT (H&H) - STAT [id number] 10:14:00 Test Item Value Reference Range Interpretation Comments HEMOGLOBIN (BEAKER) (test code = 14.5 g/dL 13.0-16.8 410) HEMATOCRIT (BEAKER) (test code = 43.0 % 40.0-50.0 411) CALCIUM, [id number] 10:14:00 Test Item Value Reference Range Interpretation Comments CALCIUM IONIZED (BEAKER) (test 1.18 mmol/L 1.12-1.27 code = 698) PH, BLOOD (BEAKER) (test code = 7.34 1810) BLOOD GAS, [id number] 10:14:00 Test Item Value Reference Range Interpretation [...] code = 1819) 70.0 % SODIUM NA-STAT [id number] 08:32:00 Test Item Value Reference Range Interpretation Comments SODIUM (BEAKER) (test code = 381) 134 meq/L 135-148 L CALCIUM, [id number] 08:31:00 Test Item Value Reference Range Interpretation Comments CALCIUM IONIZED (BEAKER) (test 1.07 mmol/L 1.12-1.27 L code = 698) PH, BLOOD (BEAKER) (test code = 7.33 1810) BLOOD GAS, [id number] 08:31:00 Test Item Value Reference Range Interpretation [...] (test code = 1819) 60.0 % GLUCOSE-STAT [id number] 08:30:00 Test Item Value Reference Range Interpretation Comments GLUCOSE RANDOM (BEAKER) (test code = 97 mg/dL 70-110 652) POTASSIUM-STAT [id number] 08:30:00 Test Item Value Reference Range Interpretation Comments POTASSIUM (BEAKER) (test code = 4.6 meq/L 3.6-5.5 379) HGB/HCT (H&H) - STAT [id number] 08:30:00 Test Item Value Reference Range Interpretation Comments HEMOGLOBIN (BEAKER) (test code = 15.0 g/dL 13.0-16.8 410) HEMATOCRIT (BEAKER) (test code = 44.0 % 40.0-50.0 411) [id number] 07:27:00 Test Item Value Reference Range Interpretation Comments BLOOD UREA NITROGEN (BEAKER) (test 49 mg/dL 7-21 H code = 354) PROTHROMBIN [id number] 06:48:00 Test Item Value Reference Range Interpretation Comments PROTIME (BEAKER) (test code = 14.3 seconds 11.7-14.7 759) INR (BEAKER) (test code = 370) 1.1 <=5.9 RECOMMENDED COUMADIN/WARFARIN INR THERAPY RANGESSTANDARD DOSE: 2.0 - 3.0 Includes: PROPHYLAXIS for venous thrombosis, systemic embolization; TREATMENT for venous thrombosis and/or pulmonary embolus.HIGH RISK: Target INR is 2.5-3.5 for patients with mechanical heart valves.CBC W/PLT COUNT & AUTO [id number] 06:42:00 Test Item Value Reference Range Interpretation [...] 0-1 PERCENT (BEAKER) (test code = 2801) [id number] 11:22:00 Test Item Value Reference Range Interpretation Comments SODIUM (BEAKER) (test 139 meq/L 136-145 code = 381) POTASSIUM (BEAKER) 4.9 meq/L 3.5-5.1 Specimen slightly (test code = 379) hemolyzed CHLORIDE (BEAKER) 108 meq/L 98-107 H (test code = 382) CO2 (BEAKER) (test 22 meq/L 22-29 code = 355) [id number] 11:22:00 Test Item Value Reference Range Interpretation Comments GLUCOSE RANDOM (BEAKER) (test code 102 mg/dL 70-105 = 652) BUN AND [id number] 11:22:00 Test Item Value Reference Range Interpretation [...] S NOT APPLICABLE FOR DIALYSIS PATIEN TS. [id number] 08:56:00 Test Item Value Reference Range Interpretation Comments HEMOGLOBIN (BEAKER) (test code = 15.9 GM/DL 13.7-17.5 410) BASIC METABOLIC [id number] 01:34:00 Test Item Value Reference Range Interpretation [...] S NOT APPLICABLE FOR DIALYSIS PATIEN TS. [id number] 01:32:00 Test Item Value Reference Range Interpretation Comments PARTIAL THROMBOPLASTIN TIME 69.3 seconds 22.5-36.0 H (BEAKER) (test code = 760) CBC W/PLT COUNT & AUTO [id number] 01:23:00 Test Item Value Reference Range Interpretation [...] 0-1 PERCENT (BEAKER) (test code = 2801) [id number] 04:46:00 Test Item Value Reference Range Interpretation [...] for patients with mechanical heart valves.BASIC METABOLIC [id number] 02:31:00 Test Item Value Reference Range Interpretation [...] PATIEN TS. CBC W/PLT COUNT & AUTO [id number] 02:17:00 Test Item Value Reference Range Interpretation [...] = 2801) CBC W/PLT COUNT & AUTO [id number] 07:53:00 Test Item Value Reference Range Interpretation [...] 46 pg/mL 0-100 (test code = 700) [id number] 07:22:00 Test Item Value Reference Range Interpretation Comments PHOSPHORUS (BEAKER) (test code = 2.8 mg/dL 2.3-4.7 604) [id number] 07:22:00 Test Item Value Reference Range Interpretation Comments MAGNESIUM (BEAKER) (test code = 1.9 mg/dL 1.6-2.6 627) BASIC METABOLIC [id number] 07:22:00 Test Item Value Reference Range Interpretation [...] NOT APPLICABLE FOR DIALYSIS PATIEN TS. CALCIUM, [id number] 07:05:00 Test Item Value Reference Range Interpretation Comments CALCIUM IONIZED (BEAKER) (test 0.90 mmol/L 1.12-1.27 L code = 698) PH, BLOOD (BEAKER) (test code = 7.42 1810) CBC W/PLT COUNT & AUTO [id number] 08:13:00 Test Item Value Reference Range Interpretation [...] (BEAKER) (test code = 413) 0.00BASIC METABOLIC [id number] 06:38:00 Test Item Value Reference Range Interpretation [...] (test 65 U/L 29-200 code = 380) [id number] 06:37:00 Test Item Value Reference Range Interpretation Comments PHOSPHORUS (BEAKER) (test code = 3.8 mg/dL 2.3-4.7 604) [id number] 06:37:00 Test Item Value Reference Range Interpretation Comments MAGNESIUM (BEAKER) (test code = 2.1 mg/dL 1.6-2.6 627) B-TYPE NATRIURETIC FACTOR (BNP)2017-01-30 06:28:00 Test Item Value Reference Range Interpretation Comments B-TYPE NATRIURETIC PEPTIDE (BEAKER) 36 pg/mL 0-100 (test code = 700) [id number] 06:16:00 Test Item Value Reference Range Interpretation Comments PARTIAL THROMBOPLASTIN TIME 152.1 seconds 22.5-36.0 HH (BEAKER) (test code = 760) CALCIUM, [id number] 06:12:00 Test Item Value Reference Range Interpretation Comments CALCIUM IONIZED (BEAKER) (test 1.09 mmol/L 1.12-1.27 L code = 698) PH, BLOOD (BEAKER) (test code = 7.25 1810) [id number] 23:50:00 Test Item Value Reference Range Interpretation Comments PARTIAL THROMBOPLASTIN TIME 87.0 seconds 22.5-36.0 H (BEAKER) (test code = 760) [id number] 15:04:00 Test Item Value Reference Range Interpretation Comments PARTIAL THROMBOPLASTIN TIME 43.2 seconds 22.5-36.0 H (BEAKER) (test code = 760) [id number] 12:41:00 Test Item Value Reference Range Interpretation Comments PARTIAL THROMBOPLASTIN TIME 192.4 seconds 22.5-36.0 HH (BEAKER) (test code = 760) Prior to initiating heparinPLATELET [id number] 12:21:00 Test Item Value Reference Range Interpretation Comments PLATELET COUNT (BEAKER) (test 155 K/CU MM 150-430 code = 756) BASIC METABOLIC [id number] 09:42:00 Test Item Value Reference Range Interpretation [...] S NOT APPLICABLE FOR DIALYSIS PATIEN TS. [id number] 09:30:00 Test Item Value Reference Range Interpretation [...] mechanical heart valves.CBC W/PLT COUNT & AUTO [id number] 09:26:00 Test Item Value Reference Range Interpretation [...] K/ L 0.00-0.20 (test code = 417) [id number] 18:10:00 Test Item Value Reference Range Interpretation Comments ACTIVATED CLOTTING TIME 202 sec TEST ED AT [facility] 6720 (BEAKER) (test code = [place] 441) [address] BLOOD [id number] 00:00:00 Test Item Value Reference Range Interpretation Comments CULTURE (BEAKER) (test No growth in 5 days code = 1095) URINE [id number] 11:38:00 Test Item Value Reference Range Interpretation Comments CULTURE (BEAKER) (test code = 1095) No growth [id number] 07:05:00 Test Item Value Reference Range Interpretation Comments PHOSPHORUS (BEAKER) (test code = 3.2 mg/dL 2.3-4.7 604) [id number] 07:05:00 Test Item Value Reference Range Interpretation Comments MAGNESIUM (BEAKER) (test code = 2.3 mg/dL 1.6-2.6 627) COMPREHENSIVE METABOLIC [id number] 07:05:00 Test Item Value Reference Range Interpretation [...] NOT APPLICABLE FOR DIALYSIS PATIEN TS. CALCIUM, [id number] 06:43:00 Test Item Value Reference Range Interpretation Comments CALCIUM IONIZED (BEAKER) (test 1.08 mmol/L 1.12-1.27 L code = 698) PH, BLOOD (BEAKER) (test code = 7.35 1810) CBC W/PLT COUNT & AUTO [id number] 06:36:00 Test Item Value Reference Range Interpretation [...] K/ L 0.00-0.20 (test code = 417) [id number] 05:54:00 Test Item Value Reference Range Interpretation Comments PHOSPHORUS (BEAKER) (test code = 3.8 mg/dL 2.3-4.7 604) [id number] 05:54:00 Test Item Value Reference Range Interpretation Comments MAGNESIUM (BEAKER) (test code = 2.5 mg/dL 1.6-2.6 627) BASIC METABOLIC [id number] 05:54:00 Test Item Value Reference Range Interpretation [...] 89 U/L 29-200 code = 380) CALCIUM, [id number] 05:29:00 Test Item Value Reference Range Interpretation Comments CALCIUM IONIZED (BEAKER) (test 1.02 mmol/L 1.12-1.27 L code = 698) PH, BLOOD (BEAKER) (test code = 7.33 1810) EOSINOPHIL SMEAR, [id number] 16:25:00 Test Item Value Reference Range Interpretation Comments EOSINOPHIL SMEAR, URINE Rare EOS =less than No EOS seen A (BEAKER) (test code = 5% WBCs seen are EOS 1851) BASIC METABOLIC [id number] 16:09:00 Test Item Value Reference Range Interpretation [...] NOT APPLICABLE FOR DIALYSIS PATIEN TS. OSMOLALITY, [id number] 13:18:00 Test Item Value Reference Range Interpretation Comments OSMOLALITY URINE (BEAKER) (test 379 mOsm/kg 40-1400 code = 614) HEMOGLOBIN [id number] 09:05:00 Test Item Value Reference Range Interpretation Comments HEMOGLOBIN A1C (BEAKER) (test code = 5.8 % 4.3-6.1 368) CBC W/PLT COUNT & AUTO [id number] 07:12:00 Test Item Value Reference Range Interpretation [...] 0.00-0.20 (test code = 417) 0.00BASIC METABOLIC [id number] 06:43:00 Test Item Value Reference Range Interpretation [...] APPLICABLE FOR DIALYSIS PATIEN TS. URINALYSIS W/ [id number] 03:12:00 Test Item Value Reference Range Interpretation [...] 1574) SOURCE(BEAKER) (test code = Urine, Voided 8709) CHLORIDE, RANDOM [id number] 01:29:00 Test Item Value Reference Range Interpretation Comments CHLORIDE URINE (BEAKER) (test code = 62 meq/L 682) Reference Range: No NormalsCREATININE, RANDOM [id number] 01:29:00 Test Item Value Reference Range Interpretation Comments CREATININE URINE (BEAKER) (test 49.9 mg/dL code = 375) Reference Range: No NormalsPOTASSIUM, RANDOM [id number] 01:29:00 Test Item Value Reference Range Interpretation Comments POTASSIUM URINE (BEAKER) (test 18.3 meq/L code = 195) Reference Range: No NormalsSODIUM, RANDOM [id number] 01:29:00 Test Item Value Reference Range Interpretation Comments SODIUM URINE (BEAKER) (test code = 73 meq/L 243) Reference Range: No NormalsSEDIMENTATION [id number] 21:30:00 Test Item Value Reference Range Interpretation Comments SEDIMENTATION RATE, ERYTHROCYTE 10 mm/HR 0-40 (BEAKER) (test code = 766) C-REACTIVE [id number] 20:44:00 Test Item Value Reference Range Interpretation Comments C-REACTIVE PROTEIN (BEAKER) (test 0.11 mg/dL 0.00-0.50 code = 676) BASIC METABOLIC [id number] 15:53:00 Test Item Value Reference Range Interpretation [...] PATIEN TS. CBC W/PLT COUNT & AUTO [id number] 15:45:00 Test Item Value Reference Range Interpretation [...]
[2022-08-07 01:01] LABS: Absolute Lymphocytes (CBC) 1.3 K/uL (0.7-4.9); MPV 7.3 fL (7.6-11.3)
[2022-08-07 01:06] LABS: Hematocrit 44.2 % (39.6-49.0); Lymphocytes % 20.9 % (15.3-44.8)
[2022-08-07 01:12] LABS: Albumin 3.6 g/dL (3.4-5.0); Bilirubin Total 0.7 mg/dL (0.2-1.0); Potassium 3.8 mmol/L (3.5-5.1); Protein, Total 7.1 g/dL (6.4-8.2)
[2022-08-07] MEDS ORDERED: NA CHLORIDE 0.9% 1,000 ML ONE (02:38)
[2022-08-07] MEDS ORDERED: FAMOTIDINE 20 MG/2 ML VIAL IV ONE (02:38)
[2022-08-07] MEDS ORDERED: NA CHLORIDE 0.9% 500 ML ONE (02:38)
[2022-08-07] MEDS ORDERED: ONDANSETRON 4 MG/2 ML VIAL ONE ×2 (02:38→08:39)
[2022-08-07] MEDS ORDERED: FENTANYL CITR 100 MCG/2 ML ONE (02:39)
[2022-08-07 03:20] LABS: Protime INR 1.07
[2022-08-07 03:22] LABS: Magnesium 2.2 mg/dL (1.6-2.4)
[2022-08-07 03:58] LABS: SARS-CoV-2 Antigen Rapid Res Negative (Negative)
[2022-08-07 04:03] LABS: Troponin High Sensitivity 83.2 pg/mL (<58.9)
--- NOTE | 2022-08-07 04:05 | ER ---
Nurse's Notes [facility] Name: Lisandro Livingston Age: 82 yrs Sex: Male : 1940 Arrival Date: 08/06/2022 Time: 23:28 Bed 8 Private MD: Diagnosis: Vomiting;Abdominal pain, Generalized;Bradycardia, unspecified;Abnormal levels of other serum enzymes-elevated troponin Presentation: 08/06 23:55 Ebola Screen: No symptoms or risks identified at this time. Initial Sepsis Screen: Does kd3 the patient meet any 2 criteria? No. Patient's initial sepsis screen is negative. Does the patient have a suspected source of infection? No. Patient's initial sepsis screen is negative. Risk Assessment: Do you want to hurt yourself or someone else? Patient reports no desire to harm self or others. 23:55 Acuity: JUDIT 3 kd3 23:55 Method Of Arrival: Wheelchair 3 08/07 04:54 Chief complaint: Patient states: abdominal pain vomiting. Coronavirus screen: Vaccine kl status: Patient reports being unvaccinated. 04:54 Onset of symptoms was August 06, 2022 at 23:00. kl Triage Assessment: 08/06 23:55 General: Appears ill, Behavior is calm, cooperative. Pain: Complains of pain in kd3 abdomen. GI: Reports nausea, vomiting. Historical: - Allergies: 08/07 00:07 NKDA; kl - Home Meds: 00:07 amlodipine 2.5 mg tab 1 tab once daily [Active]; atorvastatin 40 mg Oral tab 1 tab once kl daily [Active]; citalopram 10 mg tab 1 tab once daily [Active]; Pt is not compliant with medications [Active]; Sodium Bicarbonate 10GR tab RIS Oral 3 tabs three times a day [Active]; tamsulosin 0.4 mg Oral cp24 1 cap once daily [Active]; cefdinir oral [Active]; Doxycycline Oral [Active]; - PMHx: 00:07 Bladder cancer; Cancer; COVID; Hypertension; kidney CA; PROSTATE CA; kl - PSHx: 00:07 Bladder Reconstruction; kl - Immunization history:: Adult Immunizations up to date. - Social history:: Smoking status: Patient denies any tobacco usage or history of. Screenin:10 [facility] ED Fall Risk Assessment (Adult) History of falling in the last 3 months, kl including since admission No falls in past 3 months (0 pts) Confusion or Disorientation No (0 pts) Intoxicated or Sedated No (0 pts) Impaired Gait No (0 pts) Mobility Assist Device Used Yes (1 pt) Altered Elimination No (0 pt) Score/Fall Risk Level 0 - 2 = Low Risk Oriented to surroundings, Maintained a safe environment. Abuse screen: Denies injuries from another. Nutritional screening: No deficits noted. Tuberculosis screening: No symptoms or risk factors identified. Assessment: 00:03 General: Appears distressed, uncomfortable, well groomed, well developed, Behavior is kl anxious. Pain: Complains of pain in right upper quadrant and left upper quadrant. Neuro: No deficits noted. Level of Consciousness is awake, alert, obeys commands, pt is [place]. Cardiovascular: No deficits noted. Respiratory: No deficits noted. GI: Abdomen is round Pt is actively vomiting undigested food, Bowel sounds present X 4 quads. Abdomen is tender to palpation. : No deficits noted. No signs and/or symptoms were reported regarding the genitourinary system. EENT: No deficits noted. No signs and/or symptoms were reported regarding the EENT system. EENT: Reports decreased hearing chronic. Derm: No deficits noted. No signs and/or symptoms reported regarding the dermatologic system. 01:00 Reassessment: Patient is alert, oriented x 3, equal unlabored respirations, skin kl warm/dry/pink. pt reports pain continues emesis resolved. 02:00 Reassessment: Patient appears in no apparent distress at this time. Patient and/or kl family updated on plan of care and expected duration. Pain level reassessed. Patient is alert, oriented x 3, equal unlabored respirations, skin warm/dry/pink. 03:00 Reassessment: Patient appears in no apparent distress at this time. Patient and/or kl family updated on plan of care and expected duration. Pain level reassessed. Patient is alert, oriented x 3, equal unlabored respirations, skin warm/dry/pink. Patient states feeling better. Patient states symptoms have improved. Vital Signs: 08/06 23:54 BP 169 / 50; Pulse 43; Resp 19; Temp 97.7(O); Pulse Ox 100% on R/A; kd3 01/19 01:31 BP 189 / 67; Pulse 56; Resp 18; Pulse Ox 97% on R/A; oe 02:00 BP 188 / 72; Pulse 50; Resp 18; Pulse Ox 96% ; kl 03:00 BP 166 / 59; Pulse 49; Resp 18; Pulse Ox 94% ; kl 04:00 BP 150 / 65; Pulse 53; Resp 18; Pulse Ox 96% on R/A; Pain 0/10; kl ED Course: 08/06 23:28 Patient arrived in ED. ja2 23:37 Gerri Escobar FNP-C is PHCP. snw 23:37 Candido Cook MD is Attending Physician. snw 23:55 Arm band placed on right wrist. kd3 23:56 Triage completed. kd3 08/07 00:12 Inserted saline lock: 22 gauge in left antecubital area, using aseptic technique. Blood ll3 collected. 00:32 Stone Protocol In Process Unspecified. EDMS 01:02 CMP Sent. kl 01:02 CBC with Diff Sent. kl 03:06 US Abdomen Limited In Process Unspecified. EDMS 03:32 XRAY Chest (1 view) In Process Unspecified. EDMS 04:00 Mikal Jenkins MD is Hospitalizing Provider. mahesh 04:00 Hospitalizing Provider role handed off by Mikal Jenkins MD mahesh 04:00 Tahir Jenkins MD is Hospitalizing Provider. mahesh 04:03 Notified ED physician of a critical lab result(s). trop 83.2. tw5 04:08 Zheng Desai MD is Hospitalizing Provider. la1 04:53 No provider procedures requiring assistance completed. Patient admitted, IV remains in kl place. 04:54 Patient has correct armband on for positive identification. kl Administered Medications: 02:50 Drug: Pepcid (famotidine) 20 mg Route: IVP; Site: left antecubital; kl 02:58 Drug: Zofran (Ondansetron) 4 mg Route: IVP; Site: left antecubital; kl 03:02 Drug: fentaNYL (PF) 25 mcg Route: IVP; Site: left antecubital; kl 03:02 Drug: NS 0.9% 500 ml Route: IV; Rate: bolus; Site: left antecubital; kl 04:23 Follow up: IV Status: Completed infusion; IV Intake: 500ml kl 04:07 Drug: fentaNYL (PF) 25 mcg Route: IVP; Site: left antecubital; 04:25 Drug: NS 0.9% 1000 ml Route: IV; Rate: 125 ml/hr; Site: left antecubital; Medication: 00:10 VIS not applicable for this client. Intake: 04:23 IV: 500ml; Total: 500ml. Outcome: 04:05 Decision to Hospitalize by Provider. [facility] 04:53 Admitted to ER Hold. Please see [facility] for further documentation. 04:53 Condition: improved 04:53 Discharge instructions given to patient, family, Instructed on the need for admit, Demonstrated understanding of instructions. 12:03 Patient left the ED. ll1 Signatures: Dispatcher [employer] EDMS Corina Dillard, Candido Mon RN, MD MD cha Waters, Shelly, NOUGAT CANDY MAKER HELPER-C NOUGAT CANDY MAKER HELPER-Csnw Srinath Chinchilla, NOUGAT CANDY MAKER HELPER-C NOUGAT CANDY MAKER HELPER-Cla1 Ricardo Wade Lynsay, FAVIOLA RN ll1 Angeles Cardona Tiffany 5 Edward Echavarria RN RN ll3 Birgit Lomas RN RN kd3
--- NOTE | 2022-08-07 04:05 | EDPHYS ---
Physician Documentation [facility] Name: Lisandro Livingston Age: 82 yrs Sex: Male : 1940 Arrival Date: 08/06/2022 Time: 23:28 Bed 8 Private MD: ED Physician Candido Cook HPI: 08/07 00:56 This 82 yrs old Male presents to ER via Wheelchair with complaints of snw Abdominal Pain, Vomiting. 00:56 The patient presents with abdominal pain in the lower abdomen. Onset: The snw symptoms/episode began/occurred acutely. The symptoms do not radiate. Associated signs and symptoms: Pertinent positives: vomited x 1. The symptoms are described as constant. Severity of pain: At its worst the pain was mild moderate in the emergency department the pain is unchanged. The patient has experienced similar episodes in the past. The patient has been recently seen by a physician: The patient has been recently been admitted at [facility], pt was dx pneumonia, continues taking cefdinir and doxycycline. Historical: - Allergies: 00:07 NKDA; kl - Home Meds: 00:07 amlodipine 2.5 mg tab 1 tab once daily [Active]; atorvastatin 40 mg Oral tab 1 tab once kl daily [Active]; citalopram 10 mg tab 1 tab once daily [Active]; Pt is not compliant with medications [Active]; Sodium Bicarbonate 10GR tab RIS Oral 3 tabs three times a day [Active]; tamsulosin 0.4 mg Oral cp24 1 cap once daily [Active]; cefdinir oral [Active]; Doxycycline Oral [Active]; - PMHx: 00:07 Bladder cancer; Cancer; COVID; Hypertension; kidney CA; PROSTATE CA; kl - PSHx: 00:07 Bladder Reconstruction; kl - Immunization history:: Adult Immunizations up to date. - Social history:: Smoking status: Patient denies any tobacco usage or history of. ROS: 00:56 Constitutional: Negative for fever, chills, and weight loss, Eyes: Negative for injury, snw pain, redness, and discharge, ENT: Negative for injury, pain, and discharge, Neck: Negative for injury, pain, and swelling, Cardiovascular: Negative for chest pain, palpitations, and edema, Respiratory: Negative for shortness of breath, cough, wheezing, and pleuritic chest pain. 00:56 Back: Negative for injury and pain, : Negative for injury, bleeding, discharge, and swelling, MS/Extremity: Negative for injury and deformity, Skin: Negative for injury, rash, and discoloration, Neuro: Negative for headache, weakness, numbness, tingling, and seizure. 00:56 Abdomen/GI: Positive for abdominal pain, nausea and vomiting, x 1 episode. Exam: 00:55 Constitutional: This is a well developed, well nourished patient who is awake, alert, snw and in no acute distress. Head/Face: Normocephalic, atraumatic. Eyes: Pupils equal round and reactive to light, extra-ocular motions intact. Lids and lashes normal. Conjunctiva and sclera are non-icteric and not injected. Cornea within normal limits. Periorbital areas with no swelling, redness, or edema. ENT: Nares patent. No nasal discharge, no septal abnormalities noted. Tympanic membranes are normal and external auditory canals are clear. Oropharynx with no redness, swelling, or masses, exudates, or evidence of obstruction, uvula midline. Mucous membranes moist. Neck: Trachea midline, no thyromegaly or masses palpated, and no cervical lymphadenopathy. Supple, full range of motion without nuchal rigidity, or vertebral point tenderness. No Meningismus. Chest/axilla: Normal chest wall appearance and motion. Nontender with no deformity. No lesions are appreciated. 00:55 Back: No spinal tenderness. No costovertebral tenderness. Full range of motion. Skin: Warm, dry with normal turgor. Normal color with no rashes, no lesions, and no evidence of cellulitis. MS/ Extremity: Pulses equal, no cyanosis. Neurovascular intact. Full, normal range of motion. Neuro: Awake and alert, GCS 15, oriented to person, place, time, and situation. Cranial nerves II-XII grossly intact. Motor strength 5/5 in all extremities. Sensory grossly intact. Cerebellar exam normal. Normal gait. 00:55 Cardiovascular: Rate: bradycardic, Rhythm: regular, Edema: is not appreciated. 00:55 Respiratory: the patient does not display signs of respiratory distress, Respirations: normal, Breath sounds: + upper airway congestion. + productive cough. 00:55 Abdomen/GI: Inspection: abdomen appears normal, Bowel sounds: normal, Palpation: moderate abdominal tenderness, in the right lower quadrant and left lower quadrant. 08:37 ECG was reviewed by the Attending Physician. mahesh Vital Signs: 08/06 23:54 BP 169 / 50; Pulse 43; Resp 19; Temp 97.7(O); Pulse Ox 100% on R/A; kd3 08/07 01:31 BP 189 / 67; Pulse 56; Resp 18; Pulse Ox 97% on R/A; oe 02:00 BP 188 / 72; Pulse 50; Resp 18; Pulse Ox 96% ; kl 03:00 BP 166 / 59; Pulse 49; Resp 18; Pulse Ox 94% ; kl 04:00 BP 150 / 65; Pulse 53; Resp 18; Pulse Ox 96% on R/A; Pain 0/10; kl MDM: 08/06 23:57 Patient medically screened. [facility] 08/07 00:58 Differential diagnosis: bowel obstruction, cholecystitis, diverticulitis, urinary tract snw infection. Data reviewed: vital signs, nurses notes. Historians other than the Patient: Daughter/Son: . Care significantly affected by the following chronic conditions: Cancer, Chronic Kidney Disease. Counseling: I had a detailed discussion with the patient and/or guardian regarding: the historical points, exam findings, and any diagnostic results supporting the discharge/admit diagnosis, the presence of at least one elevated blood pressure reading (>120/80) during this emergency department visit. Transition of care: After a detail discussion of the patient's case, care is transferred to Candido Cook MD. 08/07 00:31 Order name: CBC with Diff; Complete Time: 02:29 snw 08/07 00:31 Order name: CMP; Complete Time: 04:09 snw 08/07 02:31 Order name: PT-INR; Complete Time: 03:43 mahesh 08/07 02:32 Order name: SARS RAPID; Complete Time: 04:00 mahesh 08/07 02:41 Order name: Troponin High Sensitivity; Complete Time: 04:09 EDMS 08/07 02:41 Order name: NT PRO-BNP; Complete Time: 04:09 EDMS 08/07 02:41 Order name: Magnesium; Complete Time: 04:09 EDMS 08/07 02:41 Order name: Lipase; Complete Time: 04:09 EDMS 08/07 04:19 Order name: Urine Dipstick-Ancillary; Complete Time: 04:20 [facility] 08/07 08:49 Order name: Troponin High Sensitivity; Complete Time: 20:06 [facility] 08/06 23:42 Order name: CT Stone Protocol snw 08/06 23:46 Order name: Stone Protocol; Complete Time: 20:06 [facility] 08/07 02:31 Order name: XRAY Chest (1 view); Complete Time: 20:06 [facility] 08/07 02:31 Order name: EKG; Complete Time: 02:32 [facility] 08/07 02:31 Order name: Cardiac monitoring; Complete Time: 03:34 [facility] 08/07 02:31 Order name: EKG - Nurse/Tech; Complete Time: 03:34 [facility] 08/07 02:31 Order name: IV Saline Lock; Complete Time: 02:45 [facility] 08/07 02:31 Order name: US Abdomen Limited; Complete Time: 20:06 [facility] 08/07 08:49 Order name: T4 Free; Complete Time: 20:06 [facility] 08/07 08:49 Order name: Thyroid Stimulating Hormone; Complete Time: 20:06 [facility] 08/07 02:31 Order name: Labs collected and sent; Complete Time: 02:45 [facility] 08/07 02:31 Order name: O2 Per Protocol; Complete Time: 02:45 [facility] 08/07 02:31 Order name: O2 Sat Monitoring; Complete Time: 02:45 [facility] EC:37 Rate is 54 beats/min. Rhythm is regular. FL interval is shortened at 234 msec. QRS mahesh interval is normal. QT interval is normal. No Q waves. T waves are Normal. No ST changes noted. Clinical impression: 1st degree heart block and Sinus bradycardia. Interpreted by me. Reviewed by me. Administered Medications: 02:50 Drug: Pepcid (famotidine) 20 mg Route: IVP; Site: left antecubital; kl 02:58 Drug: Zofran (Ondansetron) 4 mg Route: IVP; Site: left antecubital; kl 03:02 Drug: fentaNYL (PF) 25 mcg Route: IVP; Site: left antecubital; kl 03:02 Drug: NS 0.9% 500 ml Route: IV; Rate: bolus; Site: left antecubital; kl 04:23 Follow up: IV Status: Completed infusion; IV Intake: 500ml kl 04:07 Drug: fentaNYL (PF) 25 mcg Route: IVP; Site: left antecubital; 04:25 Drug: NS 0.9% 1000 ml Route: IV; Rate: 125 ml/hr; Site: left antecubital; Disposition: 03:51 Co-signature as Attending Physician, Candido Cook MD I agree with the assessment and mahesh plan of care. Disposition Summary: 08/07/22 04:05 Hospitalization Ordered Condition: Fair mahesh Problem: new mahesh Symptoms: have improved mahesh Bed/Room Type: Standard mahesh Provider: Zheng Desai(08/07/22 04:08) la1 Hospitalization Status: Observation(08/07/22 04:08) la1 Location: Telemetry/MedSurg (Inpatient)(08/07/22 11:13) Room Assignment: [facility](08/07/22 11:13) Diagnosis - Vomiting mahesh - Abdominal pain, Generalized mahesh - Bradycardia, unspecified mahesh - Abnormal levels of other serum enzymes - elevated troponin mahesh Forms: - Medication Reconciliation Form mahesh - SBAR form mahesh Signatures: Dispatcher [employer] EDMS Corina Dillard RN RN kl Webb, Martha RN Candido Flores MD MD cha Waters, Shelly, MODEL MAKER PLASTER-C MODEL MAKER PLASTER-Csnw Wendy Pride RN RN ss Attema, Lee MODEL MAKER PLASTER-C MODEL MAKER PLASTER-Cla1 Corrections: (The following items were deleted from the chart) 02:41 02:32 MAGNESIUM+C.LAB.BRZ ordered. EDMS EDMS 02:41 02:32 PROBNP+C.LAB.BRZ ordered. EDMS EDMS 02:41 02:32 Troponin High Sensitivity+C.LAB.BRZ ordered. EDMS EDMS 02:41 02:32 LIPASE+C.LAB.BRZ ordered. EDMS EDMS 04:08 04:05 Inpatient Admission mahesh la1 04:08 04:05 Tahir Jenkins mahesh la1 04:48 04:05 Telemetry/MedSurg (Inpatient) [facility] 04:48 04:05 [facility] 11:13 04:48 [facility] ER HOLD [facility] 11:13 04:48 ERHOLD- [facility]
[2022-08-07 04:19] LABS: Urine Blood 2+ (Negative); Urine Glucose Negative (Negative); Urine Protein Negative (Negative); Urine Specific Gravity 1.015 (1.005-1.030)
--- NOTE | 2022-08-07 05:40 | P.HP ---
Certification for Inpatient Patient admitted to: Observation With expected LOS: <2 Midnights Patient will require the following post-hospital care: None Practitioner: I am a practitioner with admitting privileges, knowledge of patient current condition, hospital course, and medical plan of care. Services: Services provided to patient in accordance with Admission requirements found in Title 42 Section 412.3 of the Code of Federal Regulations <Srinath Chinchilla - Last Filed: 08/07/22 05:35> Patient History Date of Service: 08/07/22 Reason for admission: Abdominal pain, vomiting, elevated troponin History of Present Illness: 82-year-old male with history of metastatic renal cancer, recent UTI/pneumonia admission, CKD 3 presents the emergency department for abdominal pain, vomiting. Patient/family reports sudden onset of epigastric pain, vomiting that began last night, patient was evaluated in the emergency department his labs were significant for creatinine 1.53 GFR 45 high-sensitivity troponin 83.2 BNP 824 CBC was unremarkable urinalysis showed 2+ blood no signs of UTI. Patient had CT scan of the abdomen pelvis without contrast which showed moderate right-sided and mild left-sided hydronephrosis similar to prior which may be a chronic finding. Cystectomy with neobladder. Enlargement of the right renal mass. The renal mass now measures 6.3 x 4.2 cm it was previously 3.5 x 3.4 cm in June 2020. Discussed at length with the patient/son they report that he was told he would benefit with a right nephrectomy 2 to 3 years ago, he declined and does not want any more treatment for his renal cell carcinoma. Patient was mildly bradycardic sinus bradycardia with a rate of 45-55 in ED. He was still having some abdominal pain, nausea ED provider wishes to admit under observation for epigastric pain, nausea, elevated troponin, bradycardia. It is noted the patient does take beta-blockers. - Past Medical/Surgical History Diabetic: No -: Chronic renal disease -: Bladder Cancer, [facility] Oncology-Dr. Antolin Valera -: Varicose veins -: HTN -: Depression with anxiety -: Nicotine dependence -: Possible kidney cancer necrotic mass in the right kidney -: Siegel virus pneumonia -: Prostate cancer -: Ryan Cataracts sx -: Bladder reconstruction -: Bladder surgery -: Vascular surgery and is left calf Psychosocial/ Personal History: . 5 children - Family History Mother -: Lung disease, Diabetes Father -: Hypertension, Lung disease, Diabetes - Social History Alcohol use: No CD- Drugs: No Caffeine use: Yes Place of Residence: Home <Srinath Chinchilla - Last Filed: 08/07/22 05:35> Date of Service: 08/07/22 <Zheng Desai - Last Filed: 08/07/22 12:27> Allergies No Known Allergies Allergy (Unverified 05/27/19 08:15) Home Medications: Aspirin [Aspirin EC 81 MG] 1 tab PO DAILY 07/09/20 Gabapentin 300 mg PO BID 07/09/20 Amiodarone HCl [Cordarone*] 200 mg PO DAILY #30 tab 07/19/20 Apixaban [Eliquis] 5 mg PO BID #60 tablet 07/19/20 Atorvastatin Calcium [Lipitor*] 20 mg PO BEDTIME #30 tab 07/19/20 Calcium Carbonate [Oscal*] 1,000 mg PO BID #60 tab 07/19/20 Cholecalciferol (Vitamin D3) [Vitamin D 1000 Iu Tab*] 2,000 unit PO DAILY #30 tab 07/19/20 Melatonin [Melatonin*] 3 mg PO BEDTIME #30 tablet 07/19/20 Metoprolol Tartrate [Lopressor*] 25 mg PO BID 6AM 6PM #60 tab 07/19/20 Tamsulosin [Flomax*] 0.8 mg PO BEDTIME #30 cap 07/19/20 Thiamine HCl [Vitamin B-1*] 200 mg PO DAILY #30 tablet 07/19/20 predniSONE [Deltasone*] 10 mg PO BID #10 tab 07/19/20 Cefdinir [Cefdinir*] 300 mg PO BID 7 Days #14 cap 07/22/22 Doxycycline Hyclate 100 mg PO BID 7 Days #14 tab 07/22/22 Review of Systems 10-point ROS is otherwise unremarkable Gastrointestinal: Nausea, Abdominal Pain <Srinath Chinchilla - Last Filed: 08/07/22 05:35> Physical Examination - Physical Exam General: Alert, In no apparent distress, Oriented x3 HEENT: Atraumatic, PERRLA, Mucous membr. moist/pink, EOMI, Sclerae nonicteric Neck: Supple, 2+ carotid pulse no bruit, No LAD, Without JVD or thyroid abnormality Respiratory: Clear to auscultation bilaterally, Normal air movement Cardiovascular: No edema, Regular rate/rhythm (Sinus bradycardia rate 52), Normal S1 S2 Capillary refill: <2 Seconds Gastrointestinal: Normal bowel sounds, No tenderness Musculoskeletal: No tenderness Integumentary: No rashes Neurological: Normal gait, Normal speech, Normal strength at 5/5 x4 extr, Normal tone, Normal affect Lymphatics: No axilla or inguinal lymphadenopathy - Studies Laboratory Data (last 24 hrs) 08/07/22 02:42: PT 11.8, INR 1.07 08/07/22 02:31: Magnesium Cancelled, Lipase Cancelled 08/07/22 00:10: Sodium 137, Potassium 3.8, BUN 49 H, Creatinine 1.53 H, Glucose 139 H, Magnesium 2.2, Total Bilirubin 0.7, AST 17, ALT 24, Alkaline Phosphatase 104, Lipase 58 L 08/07/22 00:10: WBC 6.40, Hgb 15.0, Hct 44.2, Plt Count 155 <Srinath Chinchilla - Last Filed: 08/07/22 05:35> - Studies Laboratory Data (last 24 hrs) 08/07/22 02:42: PT 11.8, INR 1.07 08/07/22 02:31: Magnesium Cancelled, Lipase Cancelled 08/07/22 00:10: Sodium 137, Potassium 3.8, BUN 49 H, Creatinine 1.53 H, Glucose 139 H, Magnesium 2.2, Total Bilirubin 0.7, AST 17, ALT 24, Alkaline Phosphatase 104, Lipase 58 L 08/07/22 00:10: WBC 6.40, Hgb 15.0, Hct 44.2, Plt Count 155 <Zheng Desai - Last Filed: 08/07/22 12:27> Assessment and Plan - Plan Assessment: Abdominal pain/vomiting Enlargement of right renal mass/renal cell carcinoma Sinus bradycardia CKD 3 Elevated troponin Hypertension Chronic atrial fibrillation Plan: Abdominal pain/vomiting: CT shows enlargement of the right renal mass, ultrasound negative for cholelithiasis or acute cholecystitis. Patient without any abdominal tenderness currently still reports feeling some epigastric pain, nausea. Continue IV fluids, as needed pain medications. Enlargement of right renal mass/renal cell carcinoma: Discussed at length with the patient, son at bedside patient declined further treatment including nephrectomy 2 to 3 years ago, does not wish to pursue further treatment in regards to his cancer. Patient/son open to the idea of hospice if it was appropriate, will discuss further with attending physician/social work case manager. Sinus bradycardia: Previous med rec shows patient was on beta-paty, amiodarone. We will need to confirm home medications, hold these medications given that patient is currently in sinus bradycardia. CKD 3: Continue gentle IV fluids Elevated troponin: Borderline elevated troponin, will trend. Monitor on telemetry. No ST elevations noted on EKG. Hypertension: Continue medications, hold beta-blockers given bradycardia currently. Chronic atrial fibrillation: Currently sinus bradycardia rate in the 45-55 range, patient/son report he is no longer taking Eliquis. He takes an aspirin daily. On telemetry. DVT PPX: SCD Code status: Full Discharge Plan: Home Plan to discharge in: 24 Hours - Advance Directives Does patient have a Living Will: No Does patient have a Durable POA for Healthcare: No - Code Status/Comfort Care Code Status Assessed: Yes (DNR) Critical Care: No Time Spent Managing Pts Care (In Minutes): 55 <Srinath Chinchilla - Last Filed: 08/07/22 05:35> Physician Review: Patient Assessed, Agree with Above Assessment and Plan <Zheng Desai - Last Filed: 08/07/22 12:27>
[2022-08-07] MEDS ORDERED: MORPHINE 2 MG/ML SYR IV PRN (05:54)
[2022-08-07] MEDS ORDERED: ONDANSETRON 4 MG/2 ML VIAL IV PRN (05:54)
[2022-08-07] MEDS: Ringers Lactate 1,000 ML IV SCH ×2 (06:00→18:34)
[2022-08-07 06:09] VITALS: BMI 28.1
[2022-08-07] MEDS ORDERED: Ringers Lactate 1,000 ML IV ONE (06:23)
[2022-08-07] MEDS ORDERED: MORPHINE 2 MG/ML SYR ONE (08:39)
[2022-08-07 08:46] LABS: Thyroid Stimulating Hormone 0.673 uIU/mL (0.358-3.740)
[2022-08-07 08:49] LABS: Troponin High Sensitivity 95.1 pg/mL (<58.9)
[2022-08-07 12:22] VITALS: O2SAT 96
--- NOTE | 2022-08-07 14:03 | RAD REPORT ---
EXAM DESCRIPTION: CT - Stone Protocol - 08/07/2022 6:11 am CLINICAL HISTORY: Abd pain. COMPARISON: CT of the abdomen and pelvis without contrast from July 07, 2020. TECHNIQUE: Serial axial CT images were obtained from above the diaphragm through the pubic symphysis without administration of intravenous or oral contrast. All CT scans are performed using dose optimization techniques as appropriate, including automated exp osure control and/or standardized protocols, where dose is adjusted for indication for exam and body habitus. FINDINGS: Thoracic: Partially imaged cardiomegaly. Hepatobiliary: No obvious concerning hepatic lesion identified in the absence of intravenous contrast . The gallbladder is unremarkable. No biliary ductal dilatation. Pancreas: Fatty atrophy. Otherwise unremarkable. Spleen: Unremarkable. Gastrointestinal: No evidence of bowel obstruction or perienteric inflammation. The appendix is young l. Right lower quadrant small bowel surgical clips. Adrenals: No abnormality identified in either adrenal gland. The previously seen nodule in the right adrenal gland is no longer visualized. Renal: Enlargement of the mass at the inferior pole of the right kidney, now measuring 6.3 x 4.2 cm ( previously 3.5 x 3.4 cm). Moderate right-sided and mild left-sided hydronephrosis, similar to prior. No ureteral calculi are identified. No definite calcific nephrolithiasis, within the limitation of bi lateral renal calcific atherosclerosis. Bladder/Reproductive: Similar irregular appearance of the neobladder. Vascular/Lymphatics: No lymphadenopathy identified by CT size criteria. Retroperitoneal lymph node di ssection. Abdominal aorta is normal in caliber. Moderate calcific atherosclerosis. Musculoskeletal: No concerning osseous lesion identified. Fluid / peritoneum: No significant free fluid. No free intraperitoneal air identified. IMPRESSION: 1. Moderate right-sided and mild left-sided hydronephrosis, similar to prior. This may be a chronic finding. 2. Cystectomy with neobladder. 3. Enlargement of the right renal mass. Electronically signed by: Maria Alejandra Kern MD 08/07/2022 12:51 AM SUPERVISOR PUMPING Due to temporary technical issues with the PACS/Fluency reporting system, reports are being signed by the in house radiologists without review as a courtesy to insure prompt reporting. The interpreting radiologist is fully responsible for the content of the report.
--- NOTE | 2022-08-07 14:06 | RAD REPORT ---
EXAM DESCRIPTION: US - Abdomen Exam Limited - 08/07/2022 3:05 am CLINICAL HISTORY: 82 years Male ABD PAIN COMPARISON: None TECHNIQUE: Limited gallbladder ultrasound was performed. FINDINGS: No gallstones. Gallbladder wall measures 3 mm. Negative sonographic Gilliam sign. Common bile duct measures 3 mm. IMPRESSION: No sonographic evidence of cholelithiasis or acute cholecystitis. Electronically signed by: Leatha Perkins MD 08/07/2022 3:17 AM PHONE TECHNICIAN Due to temporary technical issues with the PACS/Fluency reporting system, reports are being signed by the in house radiologists without review as a courtesy to insure prompt reporting. The interpreting radiologist is fully responsible for the content of the report.
--- NOTE | 2022-08-07 14:07 | RAD REPORT ---
EXAM DESCRIPTION: RAD - Chest Single View - 08/07/2022 3:30 am CLINICAL HISTORY: 82 years, Male, ABDOMINAL DISTENTION COMPARISON: 07/06/2020. FINDINGS: Single view of the chest was obtained portable. Prior films were compared. The lung volume is decreased. The heart is prominent. The thoracic aorta is mildly tortuous. The pulmonary vasculatu re is normal menstruation. Costophrenic angles are sharp. No areas of consolidation or masses are s een. The rest of the soft tissue and bony structures demonstrate to be unremarkable. IMPRESSION: Decreased lung volume. Mild cardiomegaly. No focal areas of acute airspace disease. Electronically signed by: Rodriguez Castillo MD 08/07/2022 3:44 AM LICENSING DIRECTOR Due to temporary technical issues with the PACS/Fluency reporting system, reports are being signed by the in house radiologists without review as a courtesy to insure prompt reporting. The interpreting radiologist is fully responsible for the content of the report.
[2022-08-08 04:31] LABS: Absolute Lymphocytes (CBC) 1.1 K/uL (0.7-4.9); Hematocrit 38.6 % (39.6-49.0); Lymphocytes % 19.4 % (15.3-44.8); MCV 91.5 fL (80-100); MPV 7.3 fL (7.6-11.3); RBC Red Blood Cell Count 4.22 M/uL (4.33-5.43)
[2022-08-08 04:46] LABS: Potassium 3.9 mmol/L (3.5-5.1)
[2022-08-08] MEDS: Ringers Lactate 1,000 ML IV SCH (08:56)
[2022-08-08] MEDS ORDERED: POTASSIUM CL SA 10 MEQ TAB PO ONE (09:00)
--- NOTE | 2022-08-08 15:42 | P.DS ---
Admission Date: 08/07/22 Discharge Date: 08/08/22 Disposition: ROUTINE DISCHARGE Discharge Condition: GOOD Reason for Admission: Abdominal pain, vomiting, elevated troponin Consultations: 1. Cardiology Hospital Course: DIAGNOSES: # Abdominal Pain, Nausea, and Vomiting # KDIGO Stage I Acute Kidney Injury on Chronic Kidney Disease Stage III # Type II Non-ST Segment Elevation Myocardial Infarction secondary to above # Chronic Moderate Right-Sided and Mild Left-Sided Hydronephrosis secondary to Metastatic Renal Cell Carcinoma s/p Cystectomy with Neobladder - (hydronephrosis noted on outside records from 01/11/2016) # Recent Admission for Sepsis possibly secondary to Proteus Mirabilis Urinary Tract Infection +/- Community-Acquired/Atypical Pneumonia # Chronic Atrial Fibrillation - now with Sinus Bradycardia # Hypertension # Microscopic Hematuria HOSPITAL COURSE: Mr. Lisandro Escobar is a pleasant 82 year old male with a past medical history significant for metastatic renal cancer, chronic kidney disease stage III, and chronic atrial fibrillation who was admitted to the [facility] on 08/07/2022 for abdominal pain, nausea, and vomiting. He was admitted to the Medicine service. Upon further evaluation, his CT abdomen revealed, "1. Moderate right-sided and mild left-sided hydronephrosis, similar to prior. This may be a chronic finding. 2. Cystectomy with neobladder. 3. Enlargement of the right renal mass." Right upper quadrant abdominal ultrasound revealed, "no sonographic evidence of cholelithiasis or acute cholecystitis." He was started on IV fluids and placed NPO. Over the course of his hospitalization, his symptoms improved significantly. He was able to tolerate a diet without any issues. Today, he states he feels well and would like to go home. As part of his evaluation, a cardiac work-up was initiated. His EKG was without STEMI criteria. His troponin trend was 83.2 -> 95.1 -> 90.6. Cardiology was consulted and he was evaluated by Dr. Nice. Dr. Nice has cleared him for discharge with an outpatient cardiac stress test. Of note, given his metastatic renal cell carcinoma, I held an extensive goals of care discussion between him, his , his daughter, and his son. We discussed diseasedirected care versus symptomsdirected care (hospice). They stated that they would like to think about it further and make a decision later. Currently, he would like to pursue aggressive measures to treat his renal cell cancer. I have provided him with the contact information to schedule appointments with Dr. Hernandez and Dr. Mcarthur. On 08/08/2022, he was seen on rounds and deemed medically stable for discharge. He was discharged with instructions to schedule follow-up appointments with his PCP, with Cardiology (Dr. Nice), with Urology (Dr. Hernandez), and with Oncology (Dr. Mcarthur). He and his were provided a prescription for ondansetron. He was given the opportunity to ask questions and reported no further questions. Furthermore, all questions were answered to the best of my ability. Today, I personally spent 25 minutes on his case, of which greater than 50% of the time was spent in patient education, counseling, and coordination of care as described above. Vital Signs/Physical Exam: Temp Pulse Resp BP Pulse Ox 98.1 F 59 18 169/70 H 95 08/08/22 11:57 08/08/22 11:57 08/08/22 11:57 08/08/22 11:57 08/08/22 11:57 General: Alert, In no apparent distress, Oriented x3 HEENT: Atraumatic, Mucous membr. moist/pink, Other (hard of hearing), EOMI, Sclerae nonicteric Neck: JVD not distended Respiratory: Clear to auscultation bilaterally, Normal air movement Cardiovascular: No edema, Regular rate/rhythm, Normal S1 S2, No gallops, No rubs, No murmurs Gastrointestinal: Normal bowel sounds, Soft and benign, Non-distended, No tenderness, No rebound, No guarding Musculoskeletal: No clubbing Integumentary: No rashes Neurological: Normal speech, Normal affect Laboratory Data at Discharge: WBC 5.60 K/uL (4.3-10.9) 08/08/22 03:53 Hgb 13.2 g/dL (13.6-17.9) L D 08/08/22 03:53 Hct 38.6 % (39.6-49.0) L 08/08/22 03:53 Plt Count 118 K/uL (152-406) L 08/08/22 03:53 PT 11.8 SECONDS (9.5-12.5) 08/07/22 02:42 INR 1.07 08/07/22 02:42 Sodium 138 mmol/L (136-145) 08/08/22 03:53 Potassium 3.9 mmol/L (3.5-5.1) 08/08/22 03:53 BUN 38 mg/dL (7-18) H 08/08/22 03:53 Creatinine 1.17 mg/dL (0.70-1.30) 08/08/22 03:53 Glucose 117 mg/dL (74-106) H 08/08/22 03:53 Magnesium Cancelled 08/07/22 02:31 Total Bilirubin 0.7 mg/dL (0.2-1.0) 08/07/22 00:10 AST 17 U/L (15-37) 08/07/22 00:10 ALT 24 U/L (16-61) 08/07/22 00:10 Alkaline Phosphatase 104 U/L (45-117) 08/07/22 00:10 Lipase Cancelled 08/07/22 02:31 Home Medications: RX: Aspirin [Aspirin EC 81 MG] 1 tab PO DAILY 07/09/20 RX: Gabapentin 300 mg PO BID 07/09/20 RX: Apixaban [Eliquis] 5 mg PO BID #60 tablet 07/19/20 RX: Atorvastatin Calcium [Lipitor*] 20 mg PO BEDTIME #30 tab 07/19/20 RX: Calcium Carbonate [Oscal*] 1,000 mg PO BID #60 tab 07/19/20 RX: Cholecalciferol (Vitamin D3) [Vitamin D 1000 Iu Tab*] 2,000 unit PO DAILY #30 tab 07/19/20 RX: Melatonin [Melatonin*] 3 mg PO BEDTIME #30 tablet 07/19/20 RX: Tamsulosin [Flomax*] 0.8 mg PO BEDTIME #30 cap 07/19/20 RX: Thiamine HCl [Vitamin B-1*] 200 mg PO DAILY #30 tablet 07/19/20 RX: predniSONE [Deltasone*] 10 mg PO BID #10 tab 07/19/20 Ondansetron [Zofran] 4 mg PO Q8H PRN 7 Days #20 tab 08/08/22 New Medications: Ondansetron [Zofran] 4 mg PO Q8H PRN 7 Days #20 tab PRN Reason: Nausea / Vomiting Physician Discharge Instructions: 1. Please call and schedule a follow-up appointment with your PCP in 3-5 days 2. Please call and schedule a follow-up appointment with Urology (Dr. Hernandez) in 3-5 days 3. Please call and schedule a follow-up appointment with Oncology [cancer doctor] (Dr. Mcarthur) in 3-5 days 4. Please call and schedule a follow-up appointment with Cardiology (Dr. Nice) in 3-5 days - He will schedule your a cardiac stress test in his clinic Diet: AHA Activity: Ad vitor Followup: OOT,OOT [Primary Care Provider] - Alyssa Vicente MD [ACTIVE - CAN ADMIT] - Mayank Hernandez [ACTIVE - CAN ADMIT] - Aureliano Nice MD [ACTIVE - CAN ADMIT] - Time spent managing pt's care (in minutes): 20
[2022-08-08 16:19] VITALS: BP 161/73; TEMP 98
--- NOTE | 2022-08-08 17:35 | EKG ---
Test Date: 2022-08-07 Test Time: 03:29:41 Junior Net Developer: JUANY MEASUREMENT RESULTS: Intervals: Rate: 54 HI: 234 QRSD: 90 QT: 420 QTc: 398 Dittmer: P: 38 HI: 234 QRS: 1 T: 72 INTERPRETIVE STATEMENTS: Sinus bradycardia with 1st degree AV block with occasional premature ventricular complexes Nonspecific ST and T wave abnormality Abnormal ECG Compared to ECG 07/19/2022 15:52:26 Ventricular premature complex(es) now present First degree AV block now present ST (T wave) deviation now present Sinus tachycardia no longer present Atrial premature complex(es) no longer present Electronically Signed On 08-08-22 17:32:15 WHITING MACHINE OPERATOR by Aureliano Nice
--- NOTE | 2022-08-08 20:17 | CON ---
Date of Consultation: 08/08/2022 Reason For Consultation: Elevated troponin. History Of Present Illness: This 82-year-old male with history of metastatic renal cancer, he is not on treatment; chronic kidney disease; bladder cancer; and hypertension presented to the emergency ro om with epigastric pain and vomiting last night. He denies having any chest pain or shortness of fidel ath. The patient is not aware of any cardiac disease or any history of coronary artery disease. I e valuated him by bedside. He is asymptomatic and does not have any chest pain. There is no shortness of breath and even his epigastric pain has resolved. Past Medical History: As outlined above in the HPI. Medications: Refer to reconciliation sheet for detailed list. Allergies: NO KNOWN DRUG ALLERGIES. Family History: No premature coronary artery disease or cancer. Social History: He does not smoke or drink and does not use drugs. Review of Systems: All systems reviewed and they were negative except as mentioned in HPI. Physical Examination: Vital Signs: Temperature is 98.0, pulse 57, breathing at 18, blood pressure 161/79, and saturating 9 7%. General: A pleasant elderly male, in no apparent distress. Head And Neck: Pupils are equal and reactive to light. Intact eye movements. No JVD. No cervical lymphadenopathy. Neck is supple. Thyroid is not enlarged. Lungs: Clear to auscultation bilaterally. No rhonchi, wheezing, or crackles. No accessory muscle u se. Heart: Regular rate and rhythm. No extra sounds. Abdomen: Soft, nontender. Bowel sounds positive. No organomegaly. No masses or hernia. No rigidi ty or rebound. Extremities: No clubbing or cyanosis. Intact pulses. Skin: No rash. Neurologic: Alert, awake, and oriented x3. No acute focal deficits appreciated. Investigations: BUN 38, creatinine 1.17, and troponin is 90. Assessment/recommendation: 1.Elevated troponin. There is no chest pain. Definitely ischemia workup is recommended. However, this patient has advanced metastatic renal cell cancer and bladder cancer and he is not on any treatm ent currently. At this point, I recommend medical management of coronary artery disease to include b eta-paty and baby aspirin and conservative measures only. 2.Hypertension. Blood pressure is elevated. Add beta-paty and also RICK inhibitor and baby aspir in and high-dose statin as well. 3.Acute renal failure. This has resolved. SR/MODL Voice ID: [id number] Report ID: [id number]
== END 2022-08-08 17:10 | disposition home or self-care (01) ==
LOC: ER 23:27 → ERHOLD 08-07 05:18 → 4TH 08-07 11:49
PROVIDERS: ADMIT Internal Medicine; ATTEND Internal Medicine
DX: N17.9 Acute kidney failure, unspecified (principal); I21.4 Non-ST elevation (NSTEMI) myocardial infarction; N18.30 Chronic kidney disease, stage 3 unspecified; R11.2 Nausea with vomiting, unspecified; R10.9 Unspecified abdominal pain; I10 Essential (primary) hypertension; R00.1 Bradycardia, unspecified; R77.8 Other specified abnormalities of plasma proteins; C64.1 Malignant neoplasm of right kidney, except renal pelvis; N13.30 Unspecified hydronephrosis; I48.11 Longstanding persistent atrial fibrillation; R31.29 Other microscopic hematuria; Z85.51 Personal history of malignant neoplasm of bladder; Z20.822 Contact with and (suspected) exposure to COVID-19
CPT/HCPCS: 96361; 93005; 85025 ×2; 80048; 36415 ×2; 83735; 85610; 84443; 81003; 84484 ×3; 84439; 83690; 80053; 83880; 76377; 74176; 71045; 76705; 96375; 96374; 99285; 87811; J3010; J2270; J7120 ×3; J7040; J7030; J2405 ×2; G0378

== ENCOUNTER 2023-02-16 07:38 | Emergency (ER) | payer OTHER ==
--- OUTSIDE RECORDS SUMMARY | 2023-02-16 07:46 | XMS REPORT | Continuity of Care Document ---
:1940 Author Organization [facility] t Address [address] [facility] [address] [place] [address] Care Team Providers Name Role Phone STELLA DAVIS Primary Care Physician Unavailable Antolin Zavala MD Attending Clinician ANTOLIN ZAVALA Attending Clinician Unavailable Stella Davis MD Attending Clinician Augusta Attending Clinician Unavailable Lisa Reyna Attending Clinician VERÓNICA MEDINA Attending Clinician Unavailable Lab, Adc Fam Pob I Attending Clinician Unavailable Verónica Radford Attending Clinician SHIRA HIGH Attending Clinician Unavailable FILIPE LESLIE Attending Clinician Unavailable ANABELLE VERDE Attending Clinician Unavailable MARÍA POLANCO Attending Clinician Unavailable SUMI AHMLIN Attending Clinician Unavailable Mineo_M Admitting Clinician Unavailable FILIPE LESLIE Admitting Clinician Unavailable DIALLO MENDIETA Admitting Clinician Unavailable JUAN AG Admitting Clinician Unavailable HILLARY WHITING Admitting Clinician Unavailable Payers Payer Name Policy Type Policy Number Effective Date Expiration Date Joan [employer] - [id number] [facility] - DUAL ELIGIBLE (MEDICARE REPLACEMENT/ADVANTAGE - HMO) Problems Condition Condition Condition Status Onset Resolution Last Treating Co mments Source Name Details Category Date Date Treatment Clinician Date Urinary Urinary Problem Active [facility] tract Tract 1-30 [facility] infectious Infectious 00:00: Ur ology disease Disease 00 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 1-30 [facility] incontinen Incontinen 00:00: Ur ology ce ce 00 Claudicati Claudicati Disease Recurre [facility] [place] Eosinophil Eosinophil Disease Active [facility] ia ia 7-13 [facility] 00:[facility]: Medical [place] Lower Lower Disease Active [facility] extremity extremity 7-12 [facility] pain, left pain, left 00:00: Me dical 00 [place] 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 lower limb 7-07 [facility] ischemia ischemia 00:00: Medica l 00 Center Cellulitis Cellulitis Disease Active [facility] of foot of foot 7-01 [facility] 00:[facility]: Medical 00 [place] PAD PAD Disease Recurre [facility] (periphera (periphera nce 6-30 [facility] l artery l artery 00:00: Medica l disease) disease) 00 Center Cellulitis Cellulitis Disease Active [facility] and and 629 [facility] abscess of abscess of 00:00: Me dical foot foot 00 [place] HTN HTN Disease Active [facility] (hypertens (hypertens 6-24 [facility] ion) ion) 00:00: Medical 00 Center Hydronephr Hydronephr Disease Active [facility] osis osis 6-24 [facility] 00:[facility]: Medical 00 [place] Depression Depression Disease Active [facility] 00:[facility]: [facility] 00 [place] Urinary Urinary Disease Active [facility] tract tract 6-23 [facility] infection, infection, 00:00: Me dical site site 00 [place] unspecifie unspecifie d d Urinary Urinary Disease Active [facility] obstructio obstructio 1-08 [facility] n 00:00: Medical 00 [place] Hyperkalem Hyperkalem Disease Active 2014-[address] ia ia 2-10 [facility] 00:[facility]: Medical 00 Center Hyponatrem Hyponatrem Disease Active 2014-[address] ia ia 2-10 [facility] 00:[facility]: Medical 00 [place] Chronic Chronic Disease Active 2014-[address] [facility] kidney kidney 2-10 [facility] disease, disease, 00:00: Medica l stage 3 stage 3 00 Center Cellulitis Cellulitis Disease Active 2014-[address] of left of left 2-10 [facility] foot foot 00:00: Medical 00 [place] 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 2-10 [facility] 00:00: Medical 00 [place] CKD CKD Disease Active 2014-[address] [facility] (chronic (chronic 2-10 [facility] kidney kidney 00:00: Medical disease) disease) 00 Center stage 2, stage 2, GFR 60-89 GFR 60-89 ml/min ml/min DOMINIQUE (acute DOMINIQUE (acute Disease Active 2014-[address] kidney kidney 1-13 [facility] injury) injury) 00:00: Medical 00 [place] Bladder Bladder Disease Active [facility] cancer cancer - [facility] 00:[facility]: Medical 00 [place] Allergies, Adverse Reactions, Alerts Allergy Allergy Status Severity Reaction(s) Onset Inactive Treating Comm ents Source Name Type Date Date Clinician Darci Propensi Active [facility] Inhibito ty to 07-28 rs adverse 00:00: Hospita reaction 00 l s to drug Darci Propensi Active [facility] Inhibito ty to 07-28 rs adverse 00:00: Hospita reaction 00 l s to drug Darci Drug Active Other (See Hyperkale [facility] Inhibito Intolera Comments) 1-08 barbie per [facility] rs nce 00:00: BCM file Medical Center Darci Drug Active Other (See Hyperkale [facility] Inhibito Intolera Comments) 1-08 barbie per [facility] rs nce 00:00: BCM file Medical 00 Center DARCI Allergy Active High Other [facility] INHIBITO 07-27 RS 00:00: 00 NO KNOWN Drug Active Univers ALLERGIE Class ity of S [facility] Social History Social Habit Start Date Stop Date Quantity Comments Source Gender identity [facility] Exposure to [facility] SARS-CoV-2 (event) [facility] Alcohol intake 2018-04-13 2018-04-[address] Anupam es 00:00:00 00:00:00 non-drinker of Medical Ce nter alcohol (finding) Sex Assigned At [address] [facility] 00:00:00 00:00:00 Medical Center Smoking Status Start Date Stop Date Source Tobacco smoking consumption unknown [facility] Never Smoker [facility] Medications Ordered Filled Start Stop Current Ordering Indication Dosage Frequency Signature Comments Components Source Medication Medication Date Date Medication? Clinician (SIG) Name Name mirtazapine Yes 15mg QD Take [address] [facility] (REMERON) 9-25 by mouth [facility] 15 MG 11:49: nightly. Medical tablet 05 [place] SODIUM Yes Q.[id number] Take by [facility] BICARBONATE 9-25 [id number] mouth 3 [facility] ORAL 11:49: 3D (three) Medical 05 times Center daily. acetaminoph Yes 500mg Take [address] en 9-25 mg by [facility] (TYLENOL) 11:49: mouth Medical 500 MG 05 every 6 Center tablet (six) hours as needed for Pain. aspirin 81 Yes 81mg QD Take [address] MG EC -25 by mouth [facility] tablet 11:49: daily. Medical 05 Center tamsulosin Yes .4mg QD Take 0.[address] (FLOMAX) 9-25 mg by [facility] 0.4 mg Cp24 11:49: mouth Medic al 24 hr 05 daily. [place] capsule citalopram Yes 20mg QD Take [address] (CELEXA) 20 9-25 by mouth [facility] MG tablet 11:49: daily. Medica l 05 Center gabapentin 20180 Yes 300mg QD Take [address] (NEURONTIN) 9-25 mg by [facility] 300 MG 11:49: mouth Medical capsule 05 daily. [place] cilostazol 2017-0 Yes 50mg Q.5D Take [address] (PLETAL) 50 9-25 by mouth 2 [facility] MG tablet 11:49: (two) Medical 05 times Center daily. mirtazapine 2017- Yes 15mg QD Take [address] [address] (REMERON) 9-25 by mouth [facility] 15 MG 11:49: nightly. Medical tablet 05 [place] SODIUM 2018-0 Yes Q.[id number] Take by [facility] BICARBONATE 9-25 [id number] mouth 3 [facility] ORAL 11:49: 3D (three) [...] by mouth [facility] tablet 11:49: daily. Medical [address] [place] [address] tamsulosin 2018-0 Yes .4mg QD Take 0.[address] (FLOMAX) 9-25 mg by [facility] 0.4 mg Cp24 11:49: mouth Medic al 24 hr 05 daily. [place] capsule citalopram 0 Yes 20mg QD Take [address] (CELEXA) 20 9-25 by mouth [facility] MG tablet 11:49: daily. Medica l 05 [place] gabapentin 0 Yes 300mg QD Take [address] (NEURONTIN) 9-25 mg by [facility] 300 MG 11:49: mouth Medical capsule 05 daily. [place] cilostazol 0 Yes 50mg Q.5D Take [address] (PLETAL) 50 9-25 by mouth 2 [facility] MG tablet 11:49: (two) Medical 05 times Center daily. mirtazapine 2018-0 Yes 15mg QD Take [address] [address] (REMERON) 9-25 by mouth [facility] 15 MG 11:49: nightly. Medical tablet 05 [place] SODIUM 2018-0 Yes Q.[id number] Take by [facility] BICARBONATE 9-25 [id number] mouth 3 [facility] ORAL 11:49: 3D (three) [...] by mouth [facility] tablet 11:49: daily. Medical [address] [place] [address] tamsulosin 2018-0 Yes .4mg QD Take 0.[address] (FLOMAX) 9-25 mg by [facility] 0.4 mg Cp24 11:49: mouth Medic al 24 hr 05 daily. [place] capsule citalopram 2018-0 Yes 20mg QD Take [address] (CELEXA) 20 9-25 by mouth [facility] MG tablet 11:49: daily. Medica l [address] [place] [address] gabapentin 2018-0 Yes 300mg QD Take [address] (NEURONTIN) 9-25 mg by [facility] 300 MG 11:49: mouth Medical capsule 05 daily. [place] cilostazol 2018-0 Yes 50mg Q.5D Take [address] (PLETAL) 50 9-25 by mouth 2 [facility] MG tablet 11:49: (two) Medical 05 times Center daily. mirtazapine 2018-0 Yes 15mg QD Take [address] (REMERON) 9-25 by mouth [facility] 15 MG 11:49: nightly. Medical tablet [address] [place] [address] SODIUM 2018-0 Yes Q.[id number] Take by [facility] BICARBONATE 9-25 [id number] mouth 3 [facility] ORAL 11:49: 3D (three) Medical 05 times Center daily. acetaminoph 2018-0 Yes 500mg Take [address] en 9-25 mg by [facility] (TYLENOL) 11:49: mouth Medical 500 MG 05 every 6 [place] tablet (six) hours as needed for Pain. aspirin 81 2018-0 Yes 81mg QD Take [address] MG EC 9-25 by mouth [facility] tablet 11:49: daily. [address] tamsulosin 2018-0 Yes .4mg QD Take 0.[address] (FLOMAX) 9-25 mg by [facility] 0.4 mg Cp24 11:49: mouth Medic al 24 hr 05 daily. [place] capsule citalopram 2018-0 Yes 20mg QD Take [address] (CELEXA) 20 9-25 by mouth [facility] MG tablet 11:49: daily. Medica [address] gabapentin 2018-0 Yes 300mg QD Take [address] (NEURONTIN) 9-25 mg by [facility] 300 MG 11:49: mouth Medical capsule 05 daily. [place] cilostazol 2018-0 Yes 50mg Q.5D Take [address] (PLETAL) 50 9-25 by mouth 2 [facility] MG tablet 11:49: (two) Medical 05 times Center daily. mirtazapine 2018-0 Yes 15mg QD Take [address] [address] (REMERON) 9-25 by mouth [facility] 15 MG 11:49: nightly. Medical tablet 05 [place] SODIUM 2018-0 Yes Q.[id number] Take by [facility] BICARBONATE 9-25 [id number] mouth 3 [facility] ORAL 11:49: 3D (three) [...] mouth [facility] tablet 11:49: daily. Medical 05 Center tamsulosin 2017-0 Yes .4mg QD Take 0.[address] (FLOMAX) 9-25 mg by [facility] 0.4 mg Cp24 11:49: mouth Medic al 24 hr 05 daily. [place] capsule citalopram 2017-0 Yes 20mg QD Take [address] (CELEXA) 20 9-25 by mouth [facility] MG tablet 11:49: daily. Medica l 05 [place] gabapentin 2018-0 Yes 300mg QD Take [address] (NEURONTIN) 9-25 mg by [facility] 300 MG 11:49: mouth Medical capsule 05 daily. [place] cilostazol 2017-0 Yes 50mg Q.5D Take [address] (PLETAL) 50 9-25 by mouth 2 [facility] MG tablet 11:49: (two) Medical 05 times Center daily. mirtazapine 2018-0 Yes 15mg QD Take [address] (REMERON) 9-25 by mouth [facility] 15 MG 11:49: nightly. Medical tablet 05 [place] SODIUM 2018-0 Yes Q.[id number] Take by [facility] BICARBONATE 9-25 [id number] mouth 3 [facility] ORAL 11:49: 3D (three) [...] by mouth [facility] tablet 11:49: daily. Medical [address] [place] [address] tamsulosin 2018-0 Yes .4mg QD Take 0.[address] (FLOMAX) 9-25 mg by [facility] 0.4 mg Cp24 11:49: mouth Medic al 24 hr 05 daily. [place] capsule citalopram 2018-0 Yes 20mg QD Take [address] (CELEXA) 20 9-25 by mouth [facility] MG tablet 11:49: daily. Medica l [address] [place] [address] gabapentin 2018-0 Yes 300mg QD Take [address] (NEURONTIN) 9-25 mg by [facility] 300 MG 11:49: mouth Medical capsule 05 daily. [place] cilostazol 2018-0 Yes 50mg Q.5D Take [address] (PLETAL) 50 9-25 by mouth 2 [facility] MG tablet 11:49: (two) Medical 05 times Center daily. mirtazapine 2018-0 Yes 15mg QD Take [address] (REMERON) 9-25 by mouth [facility] 15 MG 11:49: nightly. Medical tablet [address] [place] [address] SODIUM 2018-0 Yes Q.[id number] Take by [facility] BICARBONATE 9-25 [id number] mouth 3 [facility] ORAL 11:49: 3D (three) [...] 9-25 by mouth [facility] tablet 11:49: daily. [address] tamsulosin 2018-0 Yes .4mg QD Take 0.[address] (FLOMAX) 9-25 mg by [facility] 0.4 mg Cp24 11:49: mouth Medic al 24 hr 05 daily. [place] capsule citalopram 2018-0 Yes 20mg QD Take [address] (CELEXA) 20 9-25 by mouth [facility] MG tablet 11:49: daily. Medica [address] gabapentin 2018-0 Yes 300mg QD Take [address] (NEURONTIN) 9-25 mg by [facility] 300 MG 11:49: mouth Medical capsule 05 daily. [place] cilostazol 2018-0 Yes 50mg Q.5D Take [address] (PLETAL) 50 9-25 by mouth 2 [facility] MG tablet 11:49: (two) Medical 05 times Center daily. clopidogrel 2018-0 Yes 75mg QD Take [address] (PLAVIX) 75 9-24 by mouth [facility] mg tablet 15:49: daily. [address] clopidogrel 2018-0 Yes 75mg QD Take [address] (PLAVIX) 75 9-24 by mouth [facility] mg tablet 15:49: daily. [address] clopidogrel 2017-0 Yes 75mg QD Take [address] (PLAVIX) 75 9-24 by mouth [facility] mg tablet 15:49: daily. [address] clopidogrel 2017-0 Yes 75mg QD Take [address] (PLAVIX) 75 9-24 by mouth [facility] mg tablet 15:49: daily. [address] clopidogrel 2017-0 Yes 75mg QD Take [address] (PLAVIX) 75 9-24 by mouth [facility] mg tablet 15:49: daily. [address] clopidogrel 2017-0 Yes 75mg QD Take [address] (PLAVIX) 75 9-24 by mouth [facility] mg tablet 15:49: daily. [address] clopidogrel 2018-0 Yes 75mg QD Take [address] (PLAVIX) 75 9-24 by mouth [facility] mg tablet 15:49: daily. [address] sodium 2017-0 Yes 1{tbl} Q.[id number] Take [address] bicarbonate 9-24 [id number] tablet by [facility] 650 MG 14:34: 3D mouth 3 Medical tablet 41 (three) Center times daily. amLODIPine 2017-0 Yes 2.5mg QD Take 2.[address] (NORVASC) 9-24 mg by [facility] 2.5 MG 14:34: mouth Medical tablet 41 daily. [place] citalopram 2017-0 Yes 20mg QD Take [address] (CELEXA) 20 9-24 by mouth [facility] MG tablet 14:34: daily. [address] aspirin 81 2018-0 Yes 81mg QD Take [address] MG EC 9-24 by mouth [facility] tablet 14:34: daily. [address] cilostazol 2017-0 Yes 50mg Q.5D Take [address] (PLETAL) 50 9-24 by mouth 2 [facility] MG tablet 14:34: (two) Medical 41 times Center daily. sodium 2018-0 Yes 1{tbl} Q.[id number] Take [address] bicarbonate 9-24 [id number] tablet by [facility] 650 MG 14:34: 3D mouth 3 Medical tablet 41 (three) Center times daily. amLODIPine 2018-0 Yes 2.5mg QD Take 2.[address] (NORVASC) 9-24 mg by [facility] 2.5 MG 14:34: mouth Medical tablet 41 daily. [place] citalopram 2018-0 Yes 20mg QD Take [address] (CELEXA) 20 9-24 by mouth [facility] MG tablet 14:34: daily. Medica [address] aspirin 81 2018-0 Yes 81mg QD Take [address] MG EC 9-24 by mouth [facility] tablet 14:34: daily. [address] cilostazol 2018-0 Yes 50mg Q.5D Take [address] (PLETAL) 50 9-24 by mouth 2 [facility] MG tablet 14:34: (two) Medical 41 times Center daily. sodium 2018-0 Yes 1{tbl} Q.[id number] Take [address] bicarbonate 9-24 [id number] tablet by [facility] 650 MG 14:34: 3D mouth 3 Medical tablet 41 (three) Center times daily. amLODIPine 2018-0 Yes 2.5mg QD Take 2.[address] (NORVASC) 9-24 mg by [facility] 2.5 MG 14:34: mouth Medical tablet 41 daily. [place] citalopram 2018-0 Yes 20mg QD Take [address] (CELEXA) 20 9-24 by mouth [facility] MG tablet 14:34: daily. Medica [address] aspirin 81 2018-0 Yes 81mg QD Take [address] MG EC 9-24 by mouth [facility] tablet 14:34: daily. [address] cilostazol 2018-0 Yes 50mg Q.5D Take [address] (PLETAL) 50 9-24 by mouth 2 [facility] MG tablet 14:34: (two) Medical 41 times Center daily. sodium 2018-0 Yes 1{tbl} Q.[id number] Take [address] bicarbonate 9-24 [id number] tablet by [facility] 650 MG 14:34: 3D mouth 3 Medical tablet 41 (three) Center times daily. amLODIPine 2018-0 Yes 2.5mg QD Take 2.[address] (NORVASC) 9-24 mg by [facility] 2.5 MG 14:34: mouth Medical tablet 41 daily. [place] citalopram 2018-0 Yes 20mg QD Take [address] (CELEXA) 20 9-24 by mouth [facility] MG tablet 14:34: daily. Medica [address] aspirin 81 2018-0 Yes 81mg QD Take [address] MG EC 9-24 by mouth [facility] tablet 14:34: daily. [address] cilostazol 2018-0 Yes 50mg Q.5D Take [address] (PLETAL) 50 9-24 by mouth 2 [facility] MG tablet 14:34: (two) Medical 41 times Center daily. sodium 2018-0 Yes 1{tbl} Q.[id number] Take [address] bicarbonate 9-24 [id number] tablet by [facility] 650 MG 14:34: 3D mouth 3 Medical tablet 41 (three) Center times daily. amLODIPine 2018-0 Yes 2.5mg QD Take 2.[address] (NORVASC) 9-24 mg by [facility] 2.5 MG 14:34: mouth Medical tablet 41 daily. [place] citalopram 2018-0 Yes 20mg QD Take [address] (CELEXA) 20 9-24 by mouth [facility] MG tablet 14:34: daily. [facility] [address] aspirin 81 2018-0 Yes 81mg QD Take [address] MG EC 9-24 by mouth [facility] tablet 14:34: daily. [address] cilostazol 2018-0 Yes 50mg Q.5D Take [address] (PLETAL) 50 9-24 by mouth 2 [facility] MG tablet 14:34: (two) Medical 41 times Center daily. sodium 2018-0 Yes 1{tbl} Q.[id number] Take [address] bicarbonate 9-24 [id number] tablet by [facility] 650 MG 14:34: 3D mouth 3 Medical tablet 41 (three) Center times daily. amLODIPine 2018-0 Yes 2.5mg QD Take 2.[address] (NORVASC) 9-24 mg by [facility] 2.5 MG 14:34: mouth Medical tablet 41 daily. [place] citalopram 2018-0 Yes 20mg QD Take [address] (CELEXA) 20 9-24 by mouth [facility] MG tablet 14:34: daily. [facility] [address] aspirin 81 2018-0 Yes 81mg QD Take [address] MG EC 9-24 by mouth [facility] tablet 14:34: daily. [address] cilostazol 2018-0 Yes 50mg Q.5D Take [address] (PLETAL) 50 9-24 by mouth 2 [facility] MG tablet 14:34: (two) Medical 41 times Center daily. amLODIPine 2018-0 Yes 2.5mg QD Take 2.[address] (NORVASC) 9-24 mg by [facility] 2.5 MG 14:34: mouth Medical tablet 41 daily. [place] citalopram 2018-0 Yes 20mg QD Take [address] (CELEXA) 20 9-24 by mouth [facility] MG tablet 14:34: daily. [facility] [address] aspirin 81 2018-0 Yes 81mg QD Take [address] MG EC 9-24 by mouth [facility] tablet 14:34: daily. [address] cilostazol 2018-0 Yes 50mg Q.5D Take [address] (PLETAL) 50 9-24 by mouth 2 [facility] [place] MG tablet 14:34: (two) Medical 41 times Center daily. sodium 2018-0 Yes 1{tbl} Q.[id number] Take [address] bicarbonate 9-24 [id number] tablet by [facility] 650 MG 14:34: 3D mouth 3 Medical tablet 41 (three) Center times daily. gabapentin 2018-0 Yes Q.5D 2 (two) [facility] (NEURONTIN[facility] 9-02 times [facility] 300 MG 00:00: daily. Medical capsule 00 [place] gabapentin 2018-0 Yes Q.5D 2 (two) [facility] (NEURONTIN) 9-02 times [facility] 300 MG 00:00: daily. Medical capsule 00 [place] gabapentin 2018-0 Yes Q.5D 2 (two) [facility] (NEURONTIN) 9-02 times [facility] 300 MG 00:00: daily. Medical capsule 00 [place] gabapentin 2018-0 Yes Q.5D 2 (two) CHI [...] 00:00: daily. Medical capsule 00 Center amLODIPine 2018-0 Yes 2.5mg QD Take 1 [...] tablet 00 total) by Center mouth daily. tamsulosin 2017- Yes .4mg Take 0.4 Met hodi (FLOMAX) 1-[address] 0.4 mg 11:08: mouth. Hospita capsule,ext 31 l ended release 24hr levoFLOXaci 2017-0 Yes 250mg Take 250 M ethodi n 1-[address] (LEVAQUIN) 11:08: mouth. Hospi ta 500 MG 31 l tablet levoFLOXaci 2017-0 Yes 250mg Take 250 M [...] 2.5 mg 00:00: Hospita tablet 00 l aspirin aspirin No aspirin [place] aspirin aspirin No aspirin [place] cefdinir cefdinir No cefdinir [place] 300 mg 300 mg 300 mg [facility] capsule capsule capsule Urolog y TAKE 1 TAKE 1 TAKE 1 CAPSULE BY CAPSULE BY CAPSULE BY MOUTH TWICE MOUTH TWICE MOUTH DAILY DAILY TWICE DAILY clotrimazol clotrimazol No clotrimazo [facility] e-betametha e-betametha le-betamet [facility] sone 1 sone 1 hasone 1 Urology %-0.05 % %-0.05 % %-0.05 % topical topical topical cream APPLY cream APPLY cream TO AFFECTED TO AFFECTED APPLY TO AREA ON AREA ON AFFECTED TOES 2 TOES 2 AREA ON TIMES DAILY TIMES DAILY TOES 2 TIMES DAILY doxycycline doxycycline No doxycyclin [facility] hyclate 100 hyclate 100 e hyclate [facility] mg tablet mg tablet 100 mg Uro logy TAKE 1 TAKE 1 tablet TABLET BY TABLET BY TAKE 1 MOUTH TWICE MOUTH TWICE TABLET BY DAILY DAILY MOUTH TWICE DAILY gabapentin gabapentin No gabapentin [facility] 300 mg 300 mg 300 mg [facility] capsule capsule capsule Urolog y TAKE 1 TAKE 1 TAKE 1 CAPSULE BY CAPSULE BY CAPSULE BY MOUTH THREE MOUTH THREE MOUTH TIMES DAILY TIMES DAILY THREE TIMES DAILY ondansetron ondansetron No ondansetro [facility] 4 mg 4 mg n 4 mg [facility] disintegrat disintegrat disintegra Urology ing tablet ing tablet ting DISSOLVE 1 DISSOLVE 1 tablet TABLET IN TABLET IN DISSOLVE 1 MOUTH EVERY MOUTH EVERY TABLET IN 8 HOURS 8 HOURS MOUTH NEEDED FOR NEEDED FOR EVERY 8 NAUSEA OR NAUSEA OR HOURS VOMITING VOMITING NEEDED FOR NAUSEA OR VOMITING Immunizations Ordered Immunization Filled Immunization Date Status Commen ts Source Name Name Pneumococcal 2015-06-[address] [facility] Polysaccharide [...] Time Observation Value Comments Source BP Diastolic 2022-08-18 00:00:00 70 [facility]Hg[facility] Height 2022-08-18 00:00:00 64 [in_i] [facility] BMI (Body Mass 2022-08-18 00:00:00 29.9 kg/m2 [place] [facility] Index) Urology BP Systolic 2022-08-18 00:00:00 120 mm[Hg] [facility] Body Weight 2022-08-18 00:00:00 174 [lb_av] [facility] BP Diastolic 2022-07-29 00:00:00 51 mm[Hg] [facility] Height 2022-07-29 00:00:00 64 [in_i] [facility] BMI (Body Mass 2022-07-29 00:00:00 29.9 kg/m2 [place] [facility] Index) Urology BP Systolic 2022-07-29 00:00:00 110 mm[Hg] [facility] Body Weight 2022-07-29 00:00:00 174 [lb_av] [place] [facility] Procedures Procedure Date / Time Performed Performing Clinician [facility] e CT CHEST WITHOUT IV 2022-09-11 15:05:00 Moraima Antolin Menchaca [facility] CONTRAST Center CT ABDOMEN/PELVIS 2022-09-11 15:05:00 Milly Zavalaa Nikolai [facility] WITHOUT IV CONTRAST Center Plan of Care Planned Activity Planned Date Details Comments Source Future Scheduled 2023-03-20 Influenza Vaccine [facility] Test 00:00:00 (#1) [code = Medical Center Influenza Vaccine (#1)] Future Scheduled 2023-01-08 COVID-19 VACCINE (#1) [facility] Test 00:18:54 [code = COVID-19 VACCINE (#1)] Future Scheduled 2023-01-08 SHINGLES VACCINES (1 [facility] Test 00:18:54 of 2) [code = SHINGLES VACCINES (1 of 2)] Future Scheduled 2023-01-08 65+ PNEUMOCOCCAL Methodi Hospital Test 00:18:54 VACCINE (1 - PCV) [code = 65+ PNEUMOCOCCAL VACCINE (1 - PCV)] Future Scheduled 2023-01-08 INFLUENZA VACCINE Method ist Hospital Test 00:18:54 [code = INFLUENZA VACCINE] Diagnostic Test 2022-08-18 urinalysis, dipstick [place] [facility] Pending 00:00:00 [code = urinalysis, Urology dipstick] Future Scheduled 2022-07-29 COVID-19 VACCINE (#1) [facility] Test 15:37:47 [code = COVID-19 VACCINE (#1)] Future Scheduled 2022-07-29 SHINGLES VACCINES (1 [facility] Test 15:37:47 of 2) [code = SHINGLES VACCINES (1 of 2)] Future Scheduled 2022-07-29 65+ PNEUMOCOCCAL [facility] Hospital Test 15:37:47 VACCINE (1 - PCV) [code = 65+ PNEUMOCOCCAL VACCINE (1 - PCV)] Future Scheduled 2022-07-29 INFLUENZA VACCINE Method ist Hospital Test 15:37:47 [code = INFLUENZA VACCINE] Future Scheduled 2022-07-20 [place] RISK SCREENING [facility] Test 00:00:00 [code = FALL[place] RISK Medical C enter SCREENING] Future Scheduled 2022-07-03 COVID-19 VACCINE (#1) [facility] Test 00:07:03 [code = COVID-19 VACCINE (#1)] Future Scheduled 2022-07-03 SHINGLES VACCINES (1 [facility] Test 00:07:03 of 2) [code = SHINGLES VACCINES (1 of 2)] Future Scheduled 2022-07-03 65+ PNEUMOCOCCAL Methodi Hospital Test 00:07:03 VACCINE (1 - PCV) [code = 65+ PNEUMOCOCCAL VACCINE (1 - PCV)] Future Scheduled 2022-07-03 INFLUENZA VACCINE Method ist Hospital Test 00:07:03 [code = INFLUENZA VACCINE] Future Scheduled 2022-07-03 COVID-19 VACCINE (#1) [facility] Test 00:07:03 [code = COVID-19 VACCINE (#1)] Future Scheduled 2022-07-03 SHINGLES VACCINES (1 Met [facility] Test 00:07:03 of 2) [code = SHINGLES VACCINES (1 of 2)] Future Scheduled 2022-07-03 65+ PNEUMOCOCCAL Methodi Hospital Test 00:07:03 VACCINE (1 - PCV) [code = 65+ PNEUMOCOCCAL VACCINE (1 - PCV)] Future Scheduled 2022-07-03 INFLUENZA VACCINE Method is Hospital Test 00:07:03 [code = INFLUENZA VACCINE] Future Scheduled 2022-07-03 COVID-19 VACCINE (#1) [facility] Test 00:07:03 [code = COVID-19 VACCINE (#1)] Future Scheduled 2022-07-03 SHINGLES VACCINES (1 [facility] Test 00:07:03 of 2) [code = SHINGLES VACCINES (1 of 2)] Future Scheduled 2022-07-03 65+ [facility]UMOCOCCAL [facility] Test 00:07:03 VACCINE (1 - PCV) [code = 65+ PNEUMOCOCCAL VACCINE (1 - PCV)] Future Scheduled 2022-07-03 INFLUENZA VACCINE [facility] Test 00:07:03 [code = INFLUENZA VACCINE] Future Scheduled 2021-08-20 SH[facility]LES VACCINES [facility] Test 14:26:14 (#1) [code = SHINGLES VACCINES (#1)] Future Scheduled 2021-08-20 65+ P[facility]UMOCOCCAL [facility] Test 14:26:14 VACCINE (1 of 1 - PPSV23) [code = 65+ PNEUMOCOCCAL VACCINE (1 of 1 - PPSV23)] Future Scheduled 2021-08-20 INFLUENZA VACCINE [facility] Test 14:26:14 [code = INFLUENZA VACCINE] Future Scheduled 2021-08-20 COVID-19 VACCINE (1) Met [facility] Test 14:26:14 [code = COVID-19 VACCINE (1)] Future Scheduled 2021-08-20 SHINGLES VACCINES Method [facility] Test 14:26:14 (#1) [code = SHINGLES VACCINES (#1)] Future Scheduled 2021-08-20 65+ PNEUMOCOCCAL [facility] Test 14:26:14 VACCINE (1 of 1 - PPSV23) [code = 65+ PNEUMOCOCCAL VACCINE (1 of 1 - PPSV23)] Future Scheduled 2021-08-20 INFLUENZA VACCINE [facility] Test 14:26:14 [code = INFLUENZA VACCINE] Future Scheduled 2021-08-20 COVID-19 VACCINE (1) Met [facility] Test 14:26:14 [code = COVID-19 VACCINE (1)] Future Scheduled 2019-10-23 PNEUMOCOCCAL 65+ YRS [facility] Test 00:00:00 (2 - PCV) [code = Medical Ce nter PNEUMOCOCCAL 65+ YRS (2 - PCV)] Future Scheduled 2016-12-[address] [facility] Test 00:00:00 WELLNESS (YEAR 2 or Medical Center FIRST YEAR if no IPPE) [code = MEDICARE ANNUAL WELLNESS (YEAR 2 or FIRST YEAR if no IPPE)] Future Scheduled 1988 SHINGLES VACCINES ([address] [facility] Test 00:00:00 of 2) [code = Medical Center SHINGLES VACCINES (1 of 2)] Future Scheduled 1957 DTAP/TDAP/TD VACCINES [facility] Test 00:00:00 (1 - Tdap) [code = Medical C enter DTAP/TDAP/TD VACCINES (1 - Tdap)] Future Scheduled [address] [facility] Test 00:00:00 Counseling and Medical Cente r Screening (12+) [code = Tobacco Cessation Counseling and Screening (12+)] Future Scheduled 1938 COVID-19 VACCINE (#1) [facility] Test 00:00:00 [code = COVID-[address] VACCINE (#1)] Encounters Start End Encounter Admission Attending Care Care Encounter Source Date/Time Date/Time Type Type Clinicians Facility Department ID 2022-09-16 2022-09-16 Antolin Arndt [facility] [id number] [facility]00 Encounter [facility] 2022-09-15 2022-09-15 Outpatient ANTOLIN LOPEZ [facility] [id number] [facility] 00:00:00 00:00:00 2022-09-15 2022-09-15 Outpatient ANTOLIN LOPEZ [facility] [id number] [facility] 00:00:00 00:00:00 2022-09-11 2022-09-11 Outpatient ANTOLIN LOPEZ [facility] [id number] [facility] 13:22:35 23:59:00 2022-09-11 2022-09-11 [facility] Antolin Zavala [facility] [id number] 13:22:35 23:59:00 Encounter [facility] 2022-09-11 2022-09-11 Outpatient ANTOLIN LOPEZ [facility] [id number] [facility] 13:22:01 23:59:00 2022-09-11 2022-09-11 [facility] Antolin Zavala [facility] [id number] 13:22:01 23:59:00 Encounter [facility] 2022-09-11 2022-09-11 Outside Antolin Zavala [facility] [id number] 00:[facility] 00:00:00 Orders [facility] 2022-09-11 2022-09-11 Outside Alison [facility] [id number] 00:00:00 00:00:00 Orders [facility] 2022-09-10 2022-09-10 Outpatient ANTOLIN LOPEZ [facility] [id number] [facility] 00:00:00 00:00:00 2022-09-10 2022-09-10 [facility] [id number] SLE 00:00:00 00:00:00 2022-08-22 2022-08-22 Outpatient [facility] [id number] SLE 00:00:00 00:00:00 2022-08-22 2022-08-22 Outpatient [facility] [id number] SLE 00:00:00 00:00:00 2022-08-18 2022-08-18 Outpatient Mineo_M [facility] [id number] [facility] 00:00:00 00:00:00 [id number] [facility] 2022-08-18 2022-08-18 [facility] [place] - [id number] Von jorge 00:00:00 00:00:00 Jarett Ivy MD: [facility] [address] [address] , Ph. 2022-08-15 2022-08-15 Kenton Damir ZavalaNegrito [facility] [id number] [facility] 00:00:00 00:00:00 Encounter [facility] 2022-08-15 2022-08-15 Loli Giuliana ZavalaIzaiah [facility] [id number] [facility]I 00:00:00 00:00:00 Only [facility] 2022-08-04 2022-08-04 Outpatient Mineo_M [facility] [id number] Hunter 00:00:00 00:00:00 [id number] [facility] 2022-07-30 2022-07-30 Outpatient Mineo_M [facility] [id number] Hunter 00:00:00 00:00:00 [id number] [facility] 2022-07-30 2022-07-30 Outpatient Mineo_M [facility] [id number] Hunter 00:00:00 00:00:00 [id number] [facility] 2022-07-30 2022-07-30 Outpatient Mineo_M [facility] [id number] Hunter 00:00:00 00:00:00 [id number] [facility] 2022-07-29 2022-07-29 Outpatient Mineo_M [facility] [id number] Hunter 00:00:00 00:00:00 [id number] [facility] 2022-07-29 2022-07-29 [facility] [place] - [id number] Von jorge 00:00:00 00:00:00 Jarett Jhonatan Ivy MD: [facility] [facility] [place], [place] [address] , Ph. 2022-05-28 2022-05-28 Outpatient Mineo_M [facility] [id number] Hunter 00:00:00 00:00:00 [id number] [facility] 2022-05-28 2022-05-28 Outpatient Mineo_M [facility] [id number] Hunter 00:00:00 00:00:00 [id number] [facility] 2022-04-25 2022-04-25 Outpatient Mineo_M [facility] [id number] Hunter 00:00:00 00:00:00 [id number] [facility] 2022-04-24 2022-04-24 Outpatient Mineo_M [facility] [id number] Hunter 00:00:00 00:00:00 [id number] [facility] 2021-09-03 2021-09-03 Outpatient [facility] [id number] SLE 00:00:00 00:00:00 2021-09-03 2021-09-03 Out[facility] [id number] SLE 00:00:00 00:00:00 2021-08-27 2021-08-27 Outside Antolin Zavala [facility] [id number] WENDY Hahn 00:00:00 00:00:00 Orders merissa [facility] 2020-11-16 2020-11-16 Outside Axel [facility] [id number] WENDY Hahn 00:00:00 00:00:00 Orders Lisa [facility] 2020-06-19 2020-06-19 Outpatient Alison [facility] [id number] Univers 19:00:00 19:00:00 RANIA ity of [facility] 2020-06-19 2020-06-19 Laboratory Lab, [facility] Fam Pob I [facility] [id number] [facility] 16:32:43 16:52:43 Only [facility] [id number] ity of [place] [id number] [place] as Professio [phone] [place] d[place] [address] [address] 2020-06-19 2020-06-19 Laboratory Lab, [facility] [id number] 16:32:43 16:52:43 Only Fam Pob I Health [id number] [place] [id number] Professio [phone] nal [facility] 2018-01-21 2018-01-21 Outpatient EL [facility]H [facility] [id number] [facility] 00:00:00 00:00:00 Results Test Description Test Time Test Comments Results Result [facility] e Comments CT, ABDOMEN 2022-09-11 Restaging 16:19:00 bladder cancer, prostate cancer [facility] metastatic CENTERName: RUIZ kidney cancer SHAY LIVINGSTON : Unlisted Reason [id number] Sex: for Exam - M Click Yes and Enter Reason FINAL Below->Yes REPORT PATIENT ID: Unlisted Reason [id number] EXAM: CT Chest for Abdomen Pelvis WITHOUT Exam->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 Coronal and sagittal reformations were obtained. Routine protocol was performed. IV CONTRAST: NoneORAL CONTRAST: Gastrografin RADIATION DOSE: Total DLP: 1058 mGy*cm. Dose modulation, iterative reconstruction, and/or weight based adjustment of the mA/kV was utilized to reduce the radiation dose to as low as reasonably achievable. COMPLICATIONS: None FINDINGS: LINES/ TUBES: None. LUNGS AND AIRWAYS: Scattered bilateral interstitial reticular markings noted. Right lower lobe contains a new nodule measuring up to 1.5 cm, best seen on axial image 33, not seen on previous study. Airways are normal. PLEURA: The pleural spaces are clear. HEART AND MEDIASTINUM: The thyroid gland is normal. No mediastinal, hilar or axillary pathologic lymphadenopathy. The heart is mildly enlarged. There is no pericardial effusion. Coronary artery and aortic atherosclerosis. HEPATOBILIARY: No focal hepatic lesions. No biliary ductal dilatation. The gallbladder is collapsed, with mild nonspecific surrounding stranding.SPLEEN: No splenomegaly. PANCREAS: Atrophic. No focal masses or ductal dilatation. ADRENALS: No adrenal nodules.KIDNEYS/URETERS : No hydronephrosis. Small calcification seen within the bilateral kidneys favored vascular calcifications. Right lower pole exophytic renal mass measuring 6.6 x 5.3 cm. PELVIC ORGANS/BLADDER: Patient status post cystoprostatectomy with apparent multilobulated neobladder. PERITONEUM / RETROPERITONEUM: No free air or fluid.LYMPH NODES: No lymphadenopathy.VESSELS : Aortoiliac atherosclerosis. GI TRACT: Enteric contrast is seen within the gastric lumen, small bowel and cecum. No evidence of small large bowel obstruction. Within the right mid to lower abdomen a loop of small bowel displays irregular wall thickening up to 2.3 cm best appreciated on axial image 76. Appendix is seen, normal. BONES: Osteopenia. Degenerative changes seen throughout the visualized spine. No suspicious osseous lesions are seen. SOFT TISSUES: Unremarkable. IMPRESSION: 1.Patient is status post cystoprostatectomy with apparent multilobulated neobladder.2.Right lower pole exophytic renal mass displays interval growth now measuring 6.6 x 5.3 cm in axial dimension, suboptimally evaluated on this noncontrast study. 3.Within the right mid to lower abdomen a loop of small bowel displays irregular wall thickening up to 2.3 cm, this finding is concerning for a neoplastic process.4.Right lower lobe contains a new nodule measuring up to 1.5 cm, best seen on axial image 33, not seen on previous study. Consider follow-up CT at three months, PET/CT and/or tissue sampling for further evaluation.5.The gallbladder is collapsed, with mild nonspecific surrounding stranding. This would be further evaluated on right upper quadrant ultrasound. Signed: Tanya Zazueta MDReport Verified Date/Time: 09/11/2022 16:19:10 , CHEST, 2022-09-11 Restaging WITHOUT CONTRAST 16:19:00 bladder cancer, prostate cancer [facility] metastatic CENTERName: RUIZ kidney cancer SHAY LIVING[place] : Unlisted Reason 1940 Sex: for Exam - M Click Yes and Enter Reason FINAL Below->Yes REPORT PATIENT ID: Unlisted Reason [id number] EXAM: CT Chest for Abdomen Pelvis WITHOUT Exam->Malignant intravenous contrast neoplsm of 09/11/2022 3:24 urinary PMINDICATION: Malignant bladder, neoplasm of urinary prostate bladder, prostate cancer, renal cancer, renal mass mass.COMPARISON: CT chest 11/19/2020, CT abdomen pelvis 07/07/2020TECHNIQUE:[facility] Abdomen Pelvis was scanned utilizing a multidetector helical scanner from the lung apex through the level of the pubic symphysis without administration of IV contrast. Coronal and sagittal reformations were obtained. Routine protocol was performed. IV CONTRAST: NoneORAL CONTRAST: Gastrografin RADIATION DOSE: Total DLP: 1058 mGy*cm. Dose modulation, iterative reconstruction, and/or weight based adjustment of the mA/kV was utilized to reduce the radiation dose to as low as reasonably achievable. COMPLICATIONS: None FINDINGS: LINES/ TUBES: None. LUNGS AND AIRWAYS: Scattered bilateral interstitial reticular markings noted. Right lower lobe contains a new nodule measuring up to 1.5 cm, best seen on axial image 33, not seen on previous study. Airways are normal. PLEURA: The pleural spaces are clear. HEART AND MEDIASTINUM: The thyroid gland is normal. No mediastinal, hilar or axillary pathologic lymphadenopathy. The heart is mildly enlarged. There is no pericardial effusion. Coronary artery and aortic atherosclerosis. HEPATOBILIARY: No focal hepatic lesions. No biliary ductal dilatation. The gallbladder is collapsed, with mild nonspecific surrounding stranding.SPLEEN: No splenomegaly. PANCREAS: Atrophic. No focal masses or ductal dilatation. ADRENALS: No adrenal nodules.KIDNEYS/URETERS : No hydronephrosis. Small calcification seen within the bilateral kidneys favored vascular calcifications. Right lower pole exophytic renal mass measuring 6.6 x 5.3 cm. PELVIC ORGANS/BLADDER: Patient status post cystoprostatectomy with apparent multilobulated neobladder. PERITONEUM / RETROPERITONEUM: No free air or fluid.LYMPH NODES: No lymphadenopathy.VESSELS : Aortoiliac atherosclerosis. GI TRACT: Enteric contrast is seen within the gastric lumen, small bowel and cecum. No evidence of small large bowel obstruction. Within the right mid to lower abdomen a loop of small bowel displays irregular wall thickening up to 2.3 cm best appreciated on axial image 76. Appendix is seen, normal. BONES: Osteopenia. Degenerative changes seen throughout the visualized spine. No suspicious osseous lesions are seen. SOFT TISSUES: Unremarkable. IMPRESSION: 1.Patient is status post cystoprostatectomy with apparent multilobulated neobladder.2.Right lower pole exophytic renal mass displays interval growth now measuring 6.6 x 5.3 cm in axial dimension, suboptimally evaluated on this noncontrast study. 3.Within the right mid to lower abdomen a loop of small bowel displays irregular wall thickening up to 2.3 cm, this finding is concerning for a neoplastic process.4.Right lower lobe contains a new nodule measuring up to 1.5 cm, best seen on axial image 33, not seen on previous study. Consider follow-up CT at three months, PET/CT and/or tissue sampling for further evaluation.5.The gallbladder is collapsed, with mild nonspecific surrounding stranding. This would be further evaluated on right upper quadrant ultrasound. Signed: Tanya Zazueta MDReport Verified Date/Time: 09/11/2022 16:19:10 Bacteria identified in Urine by Culture 2022-08-02 00:00:00 Test Item Value Reference Range Interpretation Comme nts Bacteria identified in Urine by Culture (test code = 630-4) no g rowth no growth [facility] UrologyUrinalysis macro (dipstick) panel - [id number] 17:17:00 Test Item Value Reference Range Interpretation Comments leukocytes (test negative neg code = leukocytes) urobilinogen (test 0.2 E.U./dL sm amt code = urobilinogen) (.5-1mg/dL) protein (test code = negative See_Comment [Autom ated protein) message] The system which generated this result transmit krzysztof reference range : <=150 mg/d. The reference range was not used to interpret this result as normal/abnormal . pH (test code = pH) 7.0 4.5-8 blood (test code = small See_Comment A [Automat ed blood) message] The system which generated this result transmit krzysztof reference range : <=3 RBC. The reference range was not used to interpret this result as normal/abnormal . specific gravity 1.015 1.005-1.025 (test code = specific gravity) ketone (test code = negative none ketone) bilirubin (test code negative neg = bilirubin) glucose (test code = negative See_Comment [Autom ated glucose) message] The system which generated this result transmit krzysztof reference range : <=130 mg/d. The reference range was not used to interpret this result as normal/abnormal . color (test code = yellow yellow color) clarity (test code = slightly cloudy clear or cloudy clarity) nitrite (test code = negative neg nitrite) [facility] UrologyRAD, SPINE, LUMBAR, COMPLETE (MIN 4 VIEWS)2018-04-12 10:47:00Reason for exam:->LEG PAINReason for exam:->BACK PAINReason for exam:->HIP PAINFINAL REPORT CLINICAL HISTORY: LEG PAINBACK PAINHIP PAIN TECHNIQUE: Five views of the lumbar spine. 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 There isno evidence for lumbar fracture or dislocation. There are multiple abdominal pelvic surgical clips. Signed: Tish Tena Verified Date/Time: 04/12/2018 10:47:57 Reading Location: [facility] Radiology Reading Room RAD, HIP, 2 VIEWS, [id number] 10:42:00Reason for exam:->LEG PAINReason for exam:->BACK PAINReason for exam:->HIP PAINFINAL REPORT CLINICAL HISTORY: LEG PAINBACK PAINHIP PAIN TECHNIQUE: 2 views of the right hip COMPARISON: None IMPRESSION: There are degenerative changes of the right hip without evidence of fracture or dislocation. Signed: Tish Tena Verified Date/Time: 04/12/2018 10:42:38 Reading Location: [facility] Radiology Reading Room URINALYSIS W/ [id number] 10:24:00 Test Item Value Reference Range Interpretation [...] Urine, Clean Catch = 2795) BASIC METABOLIC [id number] 10:05:00 Test Item Value Reference Range Interpretation [...] TO CALCULA TE ESTIMATED GFR. HEPATIC FUNCTION [id number] 09:44:00 Test Item Value Reference Range Interpretation [...] 347) hemolyzed CBC W/PLT COUNT & AUTO [id number] 09:27:00 Test Item Value Reference Range Interpretation [...] 0-1 PERCENT (BEAKER) (test code = 2801) [id number] 06:07:00 Test Item Value Reference Range Interpretation Comments PHOSPHORUS (BEAKER) (test code = 2.9 mg/dL 2.3-4.7 604) [id number] 06:07:00 Test Item Value Reference Range Interpretation Comments MAGNESIUM (BEAKER) (test code = 2.0 mg/dL 1.6-2.6 627) BASIC METABOLIC [id number] 06:07:00 Test Item Value Reference Range Interpretation [...] 0-0 (BEAKER) (test code = 413) POCT-GLUCOSE [id number] 08:10:00 Test Item Value Reference Range Interpretation Comments POC-GLUCOSE METER 109 mg/dL 70-110 TESTED AT [facility] 6720 (BEAKER) (test code = [place] 1538) [id number] 05:39:00 Test Item Value Reference Range Interpretation Comments PHOSPHORUS (BEAKER) (test code = 3.2 mg/dL 2.3-4.7 604) [id number] 05:39:00 Test Item Value Reference Range Interpretation Comments MAGNESIUM (BEAKER) (test code = 2.1 mg/dL 1.6-2.6 627) BASIC METABOLIC [id number] 05:39:00 Test Item Value Reference Range Interpretation [...] 0-0 (BEAKER) (test code = 413) POCT-GLUCOSE [id number] 21:31:00 Test Item Value Reference Range Interpretation Comments POC-GLUCOSE METER 136 mg/dL 70-110 H TESTED AT [facility] 6720 (BEAKER) (test code = RUBINA LOPEZ 1538) [address] [id number] 03:49:00 Test Item Value Reference Range Interpretation Comments PHOSPHORUS (BEAKER) (test code = 4.2 mg/dL 2.3-4.7 604) [id number] 03:49:00 Test Item Value Reference Range Interpretation Comments MAGNESIUM (BEAKER) (test code = 2.0 mg/dL 1.6-2.6 627) BASIC METABOLIC [id number] 03:49:00 Test Item Value Reference Range Interpretation [...] WBC 0-0 (BEAKER) (test code = 413) [id number] 15:06:00 Test Item Value Reference Range Interpretation Comments PARTIAL THROMBOPLASTIN TIME 31.2 seconds 22.5-36.0 (BEAKER) (test code = 760) BASIC METABOLIC [id number] 15:05:00 Test Item Value Reference Range Interpretation [...] = 13.6 GM/DL 13.7-17.5 L 410) HEMATOCRIT (AKER) (test code = 41.3 % 40.1-51.0 411) MEAN CORPUSCULAR VOLUME (BEAKER) 87.3 fL 79.0-92.2 (test code = 753) MEAN CORPUSCULAR HEMOGLOBIN 28.8 pg 25.7-32.2 (AKER) (test code = 751) MEAN CORPUSCULAR HEMOGLOBIN CONC 32.9 GM/DL 32.3-36.5 (BEAKER) (test code = 752) RED CELL DISTRIBUTION WIDTH 14.3 % 11.6-14.4 (BEAKER) (test code = 412) PLATELET COUNT ([facility]) (test 146 K/CU MM 150-450 L code = 756) MEAN PLATELET VOLUME (AKER) 10.1 fL 9.4-12.4 (test code = 754) NUCLEATED RED BLOOD CELLS 0 /100 WBC 0-0 ([facility]) (test code = 413) [id number] 12:59:00 Test Item Value Reference Range Interpretation Comments ACTIVATED CLOTTING TIME 120 sec TEST ED AT [place] [address] ([facility]) (test code = [place] [facility]) [address] [id number] 12:59:00 Test Item Value Reference Range Interpretation Comments ACTIVATED CLOTTING TIME 230 sec TEST ED AT [place] [address] ([facility]) (test code = [place] [facility]) [address] [id number] 12:59:00 Test Item Value Reference Range Interpretation Comments ACTIVATED CLOTTING TIME 257 sec TEST ED AT [place] [address] ([facility]) (test code = [place] [address]) [address] [id number] 12:59:00 Test Item Value Reference Range Interpretation Comments ACTIVATED CLOTTING TIME 246 sec TEST ED AT [place] [address] ([facility]) (test code = [place] 441) [address] [id number] 12:59:00 Test Item Value Reference Range Interpretation Comments ACTIVATED CLOTTING TIME 263 sec TEST ED AT [place] [address] ([facility]) (test code = RUBINA [place] [facility]) [address] [id number] 12:59:00 Test Item Value Reference Range Interpretation Comments ACTIVATED CLOTTING TIME 263 sec TEST ED AT [facility] 6720 (BEAKER) (test code = [place] 441) [address] BLOOD GAS, [id number] 11:14:00 Test Item Value Reference Range Interpretation [...] (test code = 1819) 55.0 % GLUCOSE-STAT [id number] 11:13:00 Test Item Value Reference Range Interpretation Comments GLUCOSE RANDOM (BEAKER) (test code 104 mg/dL 70-110 = 652) SODIUM NA-STAT [id number] 11:13:00 Test Item Value Reference Range Interpretation Comments SODIUM (BEAKER) (test code = 381) 137 meq/L 135-148 POTASSIUM-STAT [id number] 11:13:00 Test Item Value Reference Range Interpretation Comments POTASSIUM (BEAKER) (test code = 4.2 meq/L 3.6-5.5 379) HGB/HCT (H&H) - STAT [id number] 11:13:00 Test Item Value Reference Range Interpretation Comments HEMOGLOBIN (BEAKER) (test code = 14.1 g/dL 13.0-16.8 410) HEMATOCRIT (BEAKER) (test code = 41.0 % 40.0-50.0 411) CALCIUM, [id number] 11:13:00 Test Item Value Reference Range Interpretation Comments CALCIUM IONIZED (BEAKER) (test 1.12 mmol/L 1.12-1.27 code = 698) PH, BLOOD (BEAKER) (test code = 7.40 1810) GLUCOSE-STAT [id number] 10:14:00 Test Item Value Reference Range Interpretation Comments GLUCOSE RANDOM (BEAKER) (test code 105 mg/dL 70-110 = 652) SODIUM NA-STAT [id number] 10:14:00 Test Item Value Reference Range Interpretation Comments SODIUM (BEAKER) (test code = 381) 135 meq/L 135-148 POTASSIUM-STAT [id number] 10:14:00 Test Item Value Reference Range Interpretation Comments POTASSIUM (BEAKER) (test code = 4.4 meq/L 3.6-5.5 379) HGB/HCT (H&H) - STAT [id number] 10:14:00 Test Item Value Reference Range Interpretation Comments HEMOGLOBIN (BEAKER) (test code = 14.5 g/dL 13.0-16.8 410) HEMATOCRIT (BEAKER) (test code = 43.0 % 40.0-50.0 411) CALCIUM, [id number] 10:14:00 Test Item Value Reference Range Interpretation Comments CALCIUM IONIZED (BEAKER) (test 1.18 mmol/L 1.12-1.27 code = 698) PH, BLOOD (BEAKER) (test code = 7.34 1810) BLOOD GAS, [id number] 10:14:00 Test Item Value Reference Range Interpretation [...] code = 1819) 70.0 % SODIUM NA-STAT [id number] 08:32:00 Test Item Value Reference Range Interpretation Comments SODIUM (BEAKER) (test code = 381) 134 meq/L 135-148 L CALCIUM, [id number] 08:31:00 Test Item Value Reference Range Interpretation Comments CALCIUM IONIZED (BEAKER) (test 1.07 mmol/L 1.12-1.27 L code = 698) PH, BLOOD (BEAKER) (test code = 7.33 1810) BLOOD GAS, [id number] 08:31:00 Test Item Value Reference Range Interpretation [...] (test code = 1819) 60.0 % GLUCOSE-STAT [id number] 08:30:00 Test Item Value Reference Range Interpretation Comments GLUCOSE RANDOM (BEAKER) (test code = 97 mg/dL 70-110 652) POTASSIUM-STAT [id number] 08:30:00 Test Item Value Reference Range Interpretation Comments POTASSIUM (BEAKER) (test code = 4.6 meq/L 3.6-5.5 379) HGB/HCT (H&H) - STAT [id number] 08:30:00 Test Item Value Reference Range Interpretation Comments HEMOGLOBIN (BEAKER) (test code = 15.0 g/dL 13.0-16.8 410) HEMATOCRIT (BEAKER) (test code = 44.0 % 40.0-50.0 411) [id number] 07:27:00 Test Item Value Reference Range Interpretation Comments BLOOD UREA NITROGEN (BEAKER) (test 49 mg/dL 7-21 H code = 354) PROTHROMBIN [id number] 06:48:00 Test Item Value Reference Range Interpretation Comments PROTIME (BEAKER) (test code = 14.3 seconds 11.7-14.7 759) INR (BEAKER) (test code = 370) 1.1 <=5.9 RECOMMENDED COUMADIN/WARFARIN INR THERAPY RANGESSTANDARD DOSE: 2.0 - 3.0 Includes: PROPHYLAXIS for venous thrombosis, systemic embolization; TREATMENT for venous thrombosis and/or pulmonary embolus.HIGH RISK: Target INR is 2.5-3.5 for patients with mechanical heart valves.CBC W/PLT COUNT & AUTO [id number] 06:42:00 Test Item Value Reference Range Interpretation [...] 0-1 PERCENT (BEAKER) (test code = 2801) [id number] 11:22:00 Test Item Value Reference Range Interpretation Comments SODIUM (BEAKER) (test 139 meq/L 136-145 code = 381) POTASSIUM (BEAKER) 4.9 meq/L 3.5-5.1 Specimen slightly (test code = 379) hemolyzed CHLORIDE (BEAKER) 108 meq/L 98-107 H (test code = 382) CO2 (BEAKER) (test 22 meq/L 22-29 code = 355) [id number] 11:22:00 Test Item Value Reference Range Interpretation Comments GLUCOSE RANDOM (BEAKER) (test code 102 mg/dL 70-105 = 652) BUN AND [id number] 11:22:00 Test Item Value Reference Range Interpretation [...] S NOT APPLICABLE FOR DIALYSIS PATIEN TS. [id number] 08:56:00 Test Item Value Reference Range Interpretation Comments HEMOGLOBIN (BEAKER) (test code = 15.9 GM/DL 13.7-17.5 410) BASIC METABOLIC [id number] 01:34:00 Test Item Value Reference Range Interpretation [...] S NOT APPLICABLE FOR DIALYSIS PATIEN TS. [id number] 01:32:00 Test Item Value Reference Range Interpretation Comments PARTIAL THROMBOPLASTIN TIME 69.3 seconds 22.5-36.0 H (BEAKER) (test code = 760) CBC W/PLT COUNT & AUTO [id number] 01:23:00 Test Item Value Reference Range Interpretation [...] 0-1 PERCENT (BEAKER) (test code = 2801) [id number] 04:46:00 Test Item Value Reference Range Interpretation [...] for patients with mechanical heart valves.BASIC METABOLIC [id number] 02:31:00 Test Item Value Reference Range Interpretation [...] PATIEN TS. CBC W/PLT COUNT & AUTO [id number] 02:17:00 Test Item Value Reference Range Interpretation [...] = 2801) CBC W/PLT COUNT & AUTO [id number] 07:53:00 Test Item Value Reference Range Interpretation [...] 46 pg/mL 0-100 (test code = 700) [id number] 07:22:00 Test Item Value Reference Range Interpretation Comments PHOSPHORUS (BEAKER) (test code = 2.8 mg/dL 2.3-4.7 604) [id number] 07:22:00 Test Item Value Reference Range Interpretation Comments MAGNESIUM (BEAKER) (test code = 1.9 mg/dL 1.6-2.6 627) BASIC METABOLIC [id number] 07:22:00 Test Item Value Reference Range Interpretation [...] NOT APPLICABLE FOR DIALYSIS PATIEN TS. CALCIUM, [id number] 07:05:00 Test Item Value Reference Range Interpretation Comments CALCIUM IONIZED (BEAKER) (test 0.90 mmol/L 1.12-1.27 L code = 698) PH, BLOOD (BEAKER) (test code = 7.42 1810) CBC W/PLT COUNT & AUTO [id number] 08:13:00 Test Item Value Reference Range Interpretation [...] (BEAKER) (test code = 413) 0.00BASIC METABOLIC [id number] 06:38:00 Test Item Value Reference Range Interpretation [...] (test 65 U/L 29-200 code = 380) [id number] 06:37:00 Test Item Value Reference Range Interpretation Comments PHOSPHORUS (BEAKER) (test code = 3.8 mg/dL 2.3-4.7 604) [id number] 06:37:00 Test Item Value Reference Range Interpretation Comments MAGNESIUM (BEAKER) (test code = 2.1 mg/dL 1.6-2.6 627) B-TYPE NATRIURETIC FACTOR (BNP)2017-01-30 06:28:00 Test Item Value Reference Range Interpretation Comments B-TYPE NATRIURETIC PEPTIDE (BEAKER) 36 pg/mL 0-100 (test code = 700) [id number] 06:16:00 Test Item Value Reference Range Interpretation Comments PARTIAL THROMBOPLASTIN TIME 152.1 seconds 22.5-36.0 HH (BEAKER) (test code = 760) CALCIUM, [id number] 06:12:00 Test Item Value Reference Range Interpretation Comments CALCIUM IONIZED (BEAKER) (test 1.09 mmol/L 1.12-1.27 L code = 698) PH, BLOOD (BEAKER) (test code = 7.25 1810) [id number] 23:50:00 Test Item Value Reference Range Interpretation Comments PARTIAL THROMBOPLASTIN TIME 87.0 seconds 22.5-36.0 H (BEAKER) (test code = 760) [id number] 15:04:00 Test Item Value Reference Range Interpretation Comments PARTIAL THROMBOPLASTIN TIME 43.2 seconds 22.5-36.0 H (BEAKER) (test code = 760) [id number] 12:41:00 Test Item Value Reference Range Interpretation Comments PARTIAL THROMBOPLASTIN TIME 192.4 seconds 22.5-36.0 HH (BEAKER) (test code = 760) Prior to initiating heparinPLATELET [id number] 12:21:00 Test Item Value Reference Range Interpretation Comments PLATELET COUNT (BEAKER) (test 155 K/CU MM 150-430 code = 756) BASIC METABOLIC [id number] 09:42:00 Test Item Value Reference Range Interpretation [...] S NOT APPLICABLE FOR DIALYSIS PATIEN TS. [id number] 09:30:00 Test Item Value Reference Range Interpretation [...] mechanical heart valves.CBC W/PLT COUNT & AUTO [id number] 09:26:00 Test Item Value Reference Range Interpretation [...] K/ L 0.00-0.20 (test code = 417) [id number] 18:10:00 Test Item Value Reference Range Interpretation Comments ACTIVATED CLOTTING TIME 202 sec TEST ED AT [facility] 6720 (BEAKER) (test code = [place] 441) [address] BLOOD [id number] 00:00:00 Test Item Value Reference Range Interpretation Comments CULTURE (BEAKER) (test No growth in 5 days code = 1095) URINE [id number] 11:38:00 Test Item Value Reference Range Interpretation Comments CULTURE (BEAKER) (test code = 1095) No growth [id number] 07:05:00 Test Item Value Reference Range Interpretation Comments PHOSPHORUS (BEAKER) (test code = 3.2 mg/dL 2.3-4.7 604) [id number] 07:05:00 Test Item Value Reference Range Interpretation Comments MAGNESIUM (BEAKER) (test code = 2.3 mg/dL 1.6-2.6 627) COMPREHENSIVE METABOLIC [id number] 07:05:00 Test Item Value Reference Range Interpretation [...] NOT APPLICABLE FOR DIALYSIS PATIEN TS. CALCIUM, [id number] 06:43:00 Test Item Value Reference Range Interpretation Comments CALCIUM IONIZED (BEAKER) (test 1.08 mmol/L 1.12-1.27 L code = 698) PH, BLOOD (BEAKER) (test code = 7.35 1810) CBC W/PLT COUNT & AUTO [id number] 06:36:00 Test Item Value Reference Range Interpretation [...] K/ L 0.00-0.20 (test code = 417) [id number] 05:54:00 Test Item Value Reference Range Interpretation Comments PHOSPHORUS (BEAKER) (test code = 3.8 mg/dL 2.3-4.7 604) [id number] 05:54:00 Test Item Value Reference Range Interpretation Comments MAGNESIUM (BEAKER) (test code = 2.5 mg/dL 1.6-2.6 627) BASIC METABOLIC [id number] 05:54:00 Test Item Value Reference Range Interpretation [...] 89 U/L 29-200 code = 380) CALCIUM, [id number] 05:29:00 Test Item Value Reference Range Interpretation Comments CALCIUM IONIZED (BEAKER) (test 1.02 mmol/L 1.12-1.27 L code = 698) PH, BLOOD (BEAKER) (test code = 7.33 1810) EOSINOPHIL SMEAR, [id number] 16:25:00 Test Item Value Reference Range Interpretation Comments EOSINOPHIL SMEAR, URINE Rare EOS =less than No EOS seen A (BEAKER) (test code = 5% WBCs seen are EOS 1851) BASIC METABOLIC [id number] 16:09:00 Test Item Value Reference Range Interpretation [...] NOT APPLICABLE FOR DIALYSIS PATIEN TS. OSMOLALITY, [id number] 13:18:00 Test Item Value Reference Range Interpretation Comments OSMOLALITY URINE (BEAKER) (test 379 mOsm/kg 40-1400 code = 614) HEMOGLOBIN [id number] 09:05:00 Test Item Value Reference Range Interpretation Comments HEMOGLOBIN A1C (BEAKER) (test code = 5.8 % 4.3-6.1 368) CBC W/PLT COUNT & AUTO [id number] 07:12:00 Test Item Value Reference Range Interpretation [...] 0.00-0.20 (test code = 417) 0.00BASIC METABOLIC [id number] 06:43:00 Test Item Value Reference Range Interpretation [...] APPLICABLE FOR DIALYSIS PATIEN TS. URINALYSIS W/ [id number] 03:12:00 Test Item Value Reference Range Interpretation [...] 1574) SOURCE(BEAKER) (test code = Urine, Voided 2764) CHLORIDE, RANDOM [id number] 01:29:00 Test Item Value Reference Range Interpretation Comments CHLORIDE URINE (BEAKER) (test code = 62 meq/L 682) Reference Range: No NormalsCREATININE, RANDOM [id number] 01:29:00 Test Item Value Reference Range Interpretation Comments CREATININE URINE (BEAKER) (test 49.9 mg/dL code = 375) Reference Range: No NormalsPOTASSIUM, RANDOM [id number] 01:29:00 Test Item Value Reference Range Interpretation Comments POTASSIUM URINE (BEAKER) (test 18.3 meq/L code = 195) Reference Range: No NormalsSODIUM, RANDOM [id number] 01:29:00 Test Item Value Reference Range Interpretation Comments SODIUM URINE (BEAKER) (test code = 73 meq/L 243) Reference Range: No NormalsSEDIMENTATION [id number] 21:30:00 Test Item Value Reference Range Interpretation Comments SEDIMENTATION RATE, ERYTHROCYTE 10 mm/HR 0-40 (BEAKER) (test code = 766) C-REACTIVE [id number] 20:44:00 Test Item Value Reference Range Interpretation Comments C-REACTIVE PROTEIN (BEAKER) (test 0.11 mg/dL 0.00-0.50 code = 676) BASIC METABOLIC [id number] 15:53:00 Test Item Value Reference Range Interpretation [...] PATIEN TS. CBC W/PLT COUNT & AUTO [id number] 15:45:00 Test Item Value Reference Range Interpretation [...] L 0.00-0.20 (test code = 417) 0.00 Notes Date/Time Note Provider Source 2017-10-02 13:55:00-00:00 [facility] REPORT OF PROCEDURE AURELIANO GAONAS FACILITY: [facility] BILLING #: [id number] ROOM: [place] [address] MR #: [id number] : 1940 DATE OF PROCEDURE: 10/02/2017 SURGEON: Filipe Leslie MD PREOPERATIVE DIAGNOSIS: Atherosclerosis of the n ative vessels, left lower extremity with rest pain. POSTOPERATIVE DIAGNOSIS: Atherosclerosis of the [place] vessels, left lower extremity with rest pain. OPERATIONS PERFORMED 1. Left lower extremity angiogram. 2. Drug-coated balloon angioplasty of the superf icial femoral artery and proximal popliteal arteries. REASON FOR THIS PROCEDURE: Mr. Ruiz is a patie nt that under my care I have gotten some interventions for limb threatening i schemia. He has now new onset of numbness and discoloration of the left lower extremity of 2 weeks. Upon my evaluation, there were signals, but they were obviously of poor quality. We discussed the risks and benefits of the procedure and elected to move forward with an angiogram. PROCEDURAL STEPS: The patient was identified in the preoperative holding area. The consent was signed and the site was [facility]. He was then brought to the OR where he was prepped and draped in the usual fashion for a left lower extremity angiogram. To follow, a time out was called and then the procedure initiated by gaining access into the p roximal SFA by means of ultrasound. Diagnostic angiogram of the SFA, fem oropopliteal, and tibial access was performed showing that the posterior tibial, peroneal, and anterior tibials were all occluded. The posterio r tibial very distal at the distal third of the posterior tibial artery lisa nstitutes and where some DSs are still patent. Proximal DS and proximal poste rior tibial was occluded. 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 Anyways, there was also some 50-70% sten osis of the mid distal SFA and proximal pop, which I decided to go ahead an d treat with 6 x 150 balloon (Lutonix). Patient was stable throughout the pro cedure and was taken to the postoperative recovery room after the Mynx devic e was used to close the left SFA access site. Of note, this patient has very poor outflow and distal revascularization by open surgery I think is unl ikely. We will scan his greater saphenous vein to consi suzanne arterialization of the foot as last resort for management of his ongoin g ischemic pain and then improvement of treatment of the neuropathy, whkayla h is also probably playing an important role in this patient. Cesar P P Job#: [id number] Doc#: [id number] FN: [id number] cc: Filipe Leslie MD
[2023-02-16 08:29] LABS: Absolute Lymphocytes (CBC) 1.2 K/uL (0.7-4.9); Hematocrit 42.8 % (39.6-49.0); Lymphocytes % 18.1 % (15.3-44.8); MPV 7.8 fL (7.6-11.3)
[2023-02-16] MEDS ORDERED: NACL 0.9% IRR SOLN 2,000 ML IRR ONE (08:35)
[2023-02-16 08:42] LABS: Albumin 3.7 g/dL (3.4-5.0); Bilirubin Total 0.7 mg/dL (0.2-1.0); Potassium 4.2 mEq/L (3.5-5.1); Protein, Total 6.9 g/dL (6.4-8.2); Protime INR 1.04
[2023-02-16 09:31] LABS: Urine RBC >50 /HPF (None Seen)
[2023-02-16 09:32] LABS: Urine Bacteria <20 /HPF (<20)
--- NOTE | 2023-02-16 09:32 | RAD REPORT ---
EXAM DESCRIPTION: CT - Abdomen Pelvis W Contrast - 02/16/2023 9:18 am CLINICAL HISTORY: Hematuria COMPARISON: July 2022 TECHNIQUE: Computed axial tomography of the abdomen pelvis was obtained. 100 cc Isovue-300 was admin istered intravenously. Oral contrast was not requested which limits evaluation of bowel and appendix All CT scans are performed using dose optimization technique as appropriate and may include automated exposure control or mA/KV adjustment according to patient size. FINDINGS: 1.9 centimeter right lower lobe nodule has enlarged Liver, spleen and adrenals unremarkable. Atrophic pancreas. Tiny bilateral nonobstructing renal calculi. Mild bilateral hydronephrosis has diminished in caliber. No ureteral calculus. Necrotic mass lower pole right kidney 7.3 centimeters. It has enlarged. Cystectomy. A catheter has been placed into a neobladder Atherosclerosis IMPRESSION: 7.3 centimeter right renal mass has enlarged likely renal cell carcinoma 1.9 centimeter right lower lobe nodule has enlarged likely metastasis Mild bilateral hydronephrosis has diminished and is probably nonobstructive Cystectomy with neobladder
--- NOTE | 2023-02-16 11:51 | ER ---
Nurse's Notes [facility] Name: Lisandro Livingston Age: 82 yrs Sex: Male : 1940 Arrival Date: 02/16/2023 Time: 07:38 Bed 4 Private MD: Diagnosis: Necrotic renal mass;Gross hematuria Presentation: 02/16 07:53 Chief complaint: Patient states: blood in urine X 2 days, also has left hip pain , hx iw of prostate cancer, bladder reconstruction, kidney tumor. Coronavirus screen: At this time, the client does not indicate any symptoms associated with coronavirus-19. Ebola Screen: Patient negative for fever greater than or equal to 101.5 degrees Fahrenheit, and additional compatible Ebola Virus Disease symptoms Patient denies exposure to infectious person. Patient denies travel to an Ebola-affected area in the 21 days before illness onset. No symptoms or risks identified at this time. Initial Sepsis Screen: Does the patient meet any 2 criteria? No. Patient's initial sepsis screen is negative. Does the patient have a suspected source of infection? No. Patient's initial sepsis screen is negative. Risk Assessment: Do you want to hurt yourself or someone else? Patient reports no desire to harm self or others. Onset of symptoms was February 14, 2023. 07:53 Method Of Arrival: Ambulatory iw 07:53 Acuity: JUDIT 3 iw Historical: - Allergies: 07:56 NKDA; iw - PMHx: 07:56 Bladder cancer; PROSTATE CA; kidney CA; Hypertension; iw - PSHx: 07:56 Bladder Reconstruction; Cholecystectomy; iw - Immunization history:: Adult Immunizations unknown. - Social history:: Smoking status: Patient denies any tobacco usage or history of. - Family history:: not pertinent. Screenin:07 [facility] ED Fall Risk Assessment (Adult) History of falling in the last 3 months, aa5 including since admission No falls in past 3 months (0 pts) Confusion or Disorientation No (0 pts) Intoxicated or Sedated No (0 pts) Impaired Gait No (0 pts) Mobility Assist Device Used Yes (1 pt) Altered Elimination No (0 pt) Score/Fall Risk Level 0 - 2 = Low Risk Oriented to surroundings, Maintained a safe environment, Educated pt \\T\\ family on fall prevention, incl call for assistance when getting out of bed, Used ambulatory aids as needed (educated on \\T\\ assisted with). Abuse screen: Denies threats or abuse. Nutritional screening: No deficits noted. Tuberculosis screening: No symptoms or risk factors identified. Assessment: 07:55 General: Appears comfortable, Behavior is calm, cooperative. Pain: Complains of pain in aa5 abdomen Unable to use pain scale. Does not appear to understand pain scale. FLACC scale score is 2 out of 10. Pt states "It only hurts a little bit". Neuro: Level of Consciousness is awake, alert, obeys commands, Oriented to person, place, time, situation. Cardiovascular: Heart tones S1 S2 present Rhythm is irregular. Respiratory: Airway is patent Respiratory effort is even, unlabored, Respiratory pattern is regular, symmetrical. GI: Abdomen is round non-distended, Bowel sounds present X 4 quads. Abd is soft and non tender X 4 quads. Patient currently denies nausea, vomiting. : Reports hematuria since last night. Pt's son states "he told his doctor about a month ago that he was urinating blood but it was only a little bit; last night he said it was heavy bleeding". EENT: Pt is hard of hearing . Derm: Skin is pink, warm \\T\\ dry. Musculoskeletal: Pt is ambulatory with cane. 08:57 Reassessment: Patient is alert, oriented x 3, equal unlabored respirations, skin aa5 warm/dry/pink. Bladder irrigation ongoing with NS, pt tolerating well. . 10:21 Reassessment: Patient is alert, oriented x 3, equal unlabored respirations, skin aa5 warm/dry/pink. Patient denies pain at this time. 11:20 Reassessment: Patient is alert, oriented x 3, equal unlabored respirations, skin aa5 warm/dry/pink. Patient denies pain at this time. Continuous bladder irrigation ongoing, pt tolerating well. . 11:20 Reassessment: Pt aware of attempt being made to transfer to [facility].. aa5 11:45 Reassessment: Bladder irrigation completed, pt tolerated well, urine is pinkish in aa5 color at this time, notified, no further orders received. . 11:45 Reassessment: Patient is alert, oriented x 3, equal unlabored respirations, skin aa5 warm/dry/pink. 12:46 Reassessment: Unsuccessful attempt made to give report to nurse at [facility], aa5 nurse unavailable at this time, will attempt later. . 13:35 Reassessment: Report given to Janet at [facility]. . aa5 14:00 Reassessment: Awaiting EMS for transfer. Pt and pt's son notified. . aa5 Vital Signs: 07:53 BP 149 / 74; Pulse 50; Resp 16 S; Temp 98.3(O); Pulse Ox 98% ; Pain 2/10; aa5 09:02 BP 129 / 61; Pulse 51; Resp 18 S; Pulse Ox 97% on R/A; Pain 0/10; aa5 10:20 BP 154 / 73; Pulse 41; Resp 19 S; Pulse Ox 100% on R/A; aa5 11:20 BP 163 / 50; Pulse 43; Resp 16 S; Temp 98(TE); Pulse Ox 98% on R/A; aa5 12:59 BP 173 / 65; Pulse 48; Pulse Ox 98% on R/A; ap3 07:53 Pain Scale: Adult aa5 09:02 Pain Scale: Adult aa5 ED Course: 07:41 Patient arrived in ED. am2 07:50 Jared Piedra MD is Attending Physician. rt 07:52 Emily Gunderson, RN is Primary Nurse. aa5 07:53 Arm band placed on. aa5 07:53 Patient has correct armband on for positive identification. Placed in gown. Bed in low aa5 position. Call light in reach. Side rails up X2. Pulse ox on. NIBP on. 07:56 Triage completed. iw 08:45 Chinchilla cath inserted, using sterile technique, 20 Fr., by va, balloon inflated, to aa5 gravity drainage, other 3 way chinchilla catheter used for continuous irrigation. returned alondra blood, 500mls. Patient tolerated poorly. 08:50 Bladder irrigated via Chinchilla returned alondra blood. aa5 09:19 CT Abd/Pelvis - IV Contrast Only In Process Unspecified. EDMS 09:21 Inserted saline lock: 20 gauge in left antecubital area, using aseptic technique. Blood rs5 collected. 10:20 Bladder irrigated via Chinchilla with Total output:1100mls. normal saline Patient tolerated aa5 well. 11:25 initiated transfer to [facility]. bd 12:41 pt accepted in transfer to [facility] by dr Al admin approval given by Caleb Tong, pt admited to room 1663. 14:35 Patient transferred, IV remains in place. aa5 14:35 No provider procedures requiring assistance completed. aa5 Administered Medications: 12:20 Drug: Piperacillin-Tazobactam IVPB 3.375 grams Route: IVPB; Infused Over: 60 mins; aa5 Site: left antecubital; 13:27 Follow up: IV Status: Completed infusion ap3 Medication: 14:35 VIS not applicable for this client. aa5 Intake: 10:20 mls, bladder irrigation aa5 11:20 mls, bladder irrigation aa5 11:45 mls, bladder irrigation completed at this time (Total bladder irrigation input: 2000mls aa5 NS) 13:55 mls, bladder irrigated with 300mls NS, pt tolerated well, urine currently pinkish clear.aa5 Output: 10:20 Other: 1100; Total: 0ml. aa5 11:20 Other: 1000; Total: 0ml. aa5 11:45 Other: 600; Total: 0ml. aa5 13:30 Urine: 300ml (Chinchilla); Total: 300ml. aa5 13:55 Other: 350; Total: 300ml. aa5 10:20 mls, bladder irrigation aa5 11:20 mls, bladder irrigation aa5 11:45 mls, bladder irrigation completed at this time (Total bladder irrigation input: 2000mls aa5 NS) 13:55 mls, bladder irrigated with 300mls NS, pt tolerated well, urine currently pinkish clear.aa5 Outcome: 11:50 ER care complete, transfer ordered by . rt 14:35 Transferred by ground EMS to [facility], Transfer form completed. aa5 X-rays sent w/ patient. Note: Report given to [facility] 14:35 Condition: stable 14:35 Instructed on the need for transfer, Demonstrated understanding of instructions. 14:42 Patient left the ED. aa5 Signatures: Dispatcher [employer] EDMS Edilma Marie Irene, RN RN iw Calderon, Audri, RN RN aa5 Katya Tong amKatya Lester RN RN ap3 Jared Piedra MD MD rt True Bruner rs5 Corrections: (The following items were deleted from the chart) 08:07 07:56 Arm band placed on iw aa5 08:56 08:45 Chinchilla cath inserted, using sterile technique, 20 Fr., by me, balloon inflated, to aa5 gravity drainage, other 3 way chinchilla catheter used for continuous irrigation. aa5 09:08 08:45 Chinchilla cath inserted, using sterile technique, 20 Fr., by me, balloon inflated, to aa5 gravity drainage, other 3 way chinchilla catheter used for continuous irrigation. returned alondra blood . Patient tolerated poorly. aa5 13:38 07:55 Cardiovascular: Heart tones S1 S2 present Rhythm is regular aa5 aa5
--- NOTE | 2023-02-16 11:51 | EDPHYS ---
Physician Documentation [facility] Name: Lisandro Livingston Age: 82 yrs Sex: Male : 1940 Arrival Date: 02/16/2023 Time: 07:38 Bed 4 Private MD: ED Physician Jared Piedra HPI: 02/16 08:11 This 82 yrs old Male presents to ER via Ambulatory with complaints of Urinary rt Problem - blood, Hip Pain. 08:11 Patient with history of prostate cancer, bladder reconstruction surgery presents to the rt ED with hematuria for the past 2 days, symptoms have been worsening since then. He does report a pain to his back, hips but denies any abdominal pain, nausea, vomiting. Denies other acute complaints at this time. Symptoms are moderate in severity, no other aggravating or alleviating factors. Historical: - Allergies: 07:56 NKDA; iw - PMHx: 07:56 Bladder cancer; PROSTATE CA; kidney CA; Hypertension; iw - PSHx: 07:56 Bladder Reconstruction; Cholecystectomy; iw - Immunization history:: Adult Immunizations unknown. - Social history:: Smoking status: Patient denies any tobacco usage or history of. - Family history:: not pertinent. ROS: 08:11 Constitutional: Negative for fever, chills, and weight loss, Cardiovascular: Negative rt for chest pain, palpitations, and edema, Respiratory: Negative for shortness of breath, cough, wheezing, and pleuritic chest pain, Abdomen/GI: Negative for abdominal pain, nausea, vomiting, diarrhea, and constipation, Skin: Negative for injury, rash, and discoloration, Neuro: Negative for headache, weakness, numbness, tingling, and seizure, Psych: Negative for depression, anxiety, suicide ideation, homicidal ideation, and hallucinations. 08:11 Back: Positive for pain at rest, Negative for injury or acute deformity. 08:11 : Positive for hematuria, Negative for burning with urination. Exam: 08:11 Constitutional: This is a well developed, well nourished patient who is awake, alert, rt and in no acute distress. Head/Face: Normocephalic, atraumatic. Chest/axilla: Normal chest wall appearance and motion. Nontender with no deformity. No lesions are appreciated. Cardiovascular: Regular rate and rhythm with a normal S1 and S2. No gallops, murmurs, or rubs. Normal PMI, no JVD. No pulse deficits. Respiratory: Lungs have equal breath sounds bilaterally, clear to auscultation and percussion. No rales, rhonchi or wheezes noted. No increased work of breathing, no retractions or nasal flaring. Abdomen/GI: Soft, non-tender, with normal bowel sounds. No distension or tympany. No guarding or rebound. No evidence of tenderness throughout. Skin: Warm, dry with normal turgor. Normal color with no rashes, no lesions, and no evidence of cellulitis. MS/ Extremity: Pulses equal, no cyanosis. Neurovascular intact. Full, normal range of motion. Neuro: Awake and alert, GCS 15, oriented to person, place, time, and situation. Cranial nerves II-XII grossly intact. Motor strength 5/5 in all extremities. Sensory grossly intact. Cerebellar exam normal. Normal gait. Psych: Awake, alert, with orientation to person, place and time. Behavior, mood, and affect are within normal limits. 12:24 ECG was reviewed by the Attending Physician. rt Vital Signs: 07:53 BP 149 / 74; Pulse 50; Resp 16 S; Temp 98.3(O); Pulse Ox 98% ; Pain 2/10; aa5 09:02 BP 129 / 61; Pulse 51; Resp 18 S; Pulse Ox 97% on R/A; Pain 0/10; aa5 10:20 BP 154 / 73; Pulse 41; Resp 19 S; Pulse Ox 100% on R/A; aa5 11:20 BP 163 / 50; Pulse 43; Resp 16 S; Temp 98(TE); Pulse Ox 98% on R/A; aa5 12:59 BP 173 / 65; Pulse 48; Pulse Ox 98% on R/A; ap3 07:53 Pain Scale: Adult aa5 09:02 Pain Scale: Adult aa5 MDM: 07:56 Patient medically screened. rt 11:50 Differential diagnosis: Gross hematuria, mass, UTI, urinary retention. Data reviewed: rt vital signs, nurses notes, lab test result(s), radiologic studies. Consideration of Admission/Observation Escalation of care including admission/observation considered. Management of patient was discussed with the following: Hospitalist: Discussed with accepting hospitalist at [facility]. Independent interpretation of the following test(s) in the Emergency Department CT Scan: My interpretation is Right renal mass seen on interpretation CT scan images. Care significantly affected by the following chronic conditions: Bladder cancer, prostate cancer. Counseling: I had a detailed discussion with the patient and/or guardian regarding: the historical points, exam findings, and any diagnostic results supporting the discharge/admit diagnosis, lab results, radiology results, the need to transfer to another facility. Response to treatment: the patient's symptoms have markedly improved after treatment. 02/16 08:04 Order name: CBC with Diff; Complete Time: 09:26 rt 02/16 08:04 Order name: CMP; Complete Time: 09: rt 02/16 08:04 Order name: PT-INR; Complete Time: : rt 02/16 08:04 Order name: Ptt, Activated; Complete Time: 09: rt 02/16 09:26 Order name: Urine Microscopic Only; Complete Time: 09:51 EDMS 02/16 09:35 Order name: Urine Culture EDMS 02/16 08:04 Order name: CT Abd/Pelvis - IV Contrast Only; Complete Time: 09:35 rt 02/16 11:59 Order name: EKG; Complete Time: 11:59 rt 02/16 08:04 Order name: Humphreys-Three way; Complete Time: 08:54 rt 02/16 11:59 Order name: EKG - Nurse/Tech; Complete Time: 12:12 rt EC:24 Rate is 57 beats/min. Rhythm is irregularly irregular, A fib with No ectopy. QRS [place] rt is Normal. QRS interval is normal. QT interval is normal. No Q waves. Administered Medications: 12:20 Drug: Piperacillin-Tazobactam IVPB 3.375 grams Route: IVPB; Infused Over: 60 mins; aa5 Site: left antecubital; 13:27 Follow up: IV Status: Completed infusion ap3 Disposition Summary: 02/16/23 11:50 Transfer Ordered Transfer Location: [facility] rt Reason: Higher level of care rt Condition: Stable rt Problem: new rt Symptoms: have improved rt Accepting Physician: (02/16/23 14:42) aa5 Diagnosis - Necrotic renal mass rt - Gross hematuria rt Forms: - Medication Reconciliation Form rt - SBAR form rt Signatures: Dispatcher [employer] EDMS Meagan Kong, RN RN iw Emily Gunderson RN RN aa5 Jared Piedra MD MD rt Katya Morrow RN ap3 Corrections: (The following items were deleted from the chart) 09:26 08:05 Urinalysis W/Microscopic+U.LAB.BRZ ordered. EDWI EDMS 14:42 11:50 Dr. diego aa5
[2023-02-16] MEDS ORDERED: PIPERACIL/TAZO 3.375 GM VIAL IV ONE (12:26)
[2023-02-16] MEDS ORDERED: NA CHLORIDE 0.9% 100 ML ONE (12:26)
[2023-02-16 15:06] VITALS: TEMP 98; O2SAT 98
[2023-02-16 15:07] VITALS: BP 173/65
--- NOTE | 2023-02-18 17:42 | EKG ---
Test Date: 2023-02-16 Test Time: 12:13:43 Unit Assembler: GER MEASUREMENT RESULTS: Intervals: Rate: 57 MO: QRSD: 86 QT: 472 QTc: 459 [place]: P: MO: QRS: 4 T: 14 INTERPRETIVE STATEMENTS: Atrial fibrillation with slow ventricular response with a competing junctional pacemaker Nonspecific ST abnormality Abnormal ECG Compared to ECG 08/07/2022 03:29:41 Sinus bradycardia no longer present Ventricular premature complex(es) no longer present First degree AV block no longer present ST (T wave) deviation still present Electronically Signed On 02-18-23 17:35:51 CDT by Aureliano Nice
== END 2023-02-16 14:42 | disposition short-term general hospital (02) ==
LOC: ER 07:38
DX: R31.0 Gross hematuria (principal); N28.89 Other specified disorders of kidney and ureter; Z85.46 Personal history of malignant neoplasm of prostate; Z85.51 Personal history of malignant neoplasm of bladder
CPT/HCPCS: 96365; 93005; 87088; 85025; 87086; 36415; 85610; 85730; 81015; 80053; 74177; 51700; 51702; 99285; Q9967; J2543

== ENCOUNTER 2023-09-04 10:24 | Inpatient (IN) | payer OTHER ==
[2023-09-04] MEDS ORDERED: NA CHLORIDE 0.9% 1,000 ML ONE (10:45)
[2023-09-04 11:27] LABS: Absolute Lymphocytes (CBC) 1.4 K/uL (0.7-4.9); Hematocrit 47.8 % (39.6-49.0); Lymphocytes % 17.3 % (15.3-44.8); MCV 89.9 fL (80-100); Platelets 206 thou/uL (152-406); RBC Red Blood Cell Count 5.32 M/uL (4.33-5.43)
[2023-09-04 11:29] LABS: Protime INR 1.05
[2023-09-04 11:39] LABS: SARS-CoV-2 Antigen Rapid Res Negative (Negative)
[2023-09-04 11:51] LABS: Albumin 3.6 g/dL (3.4-5.0); Bilirubin Direct 0.3 mg/dL (0-0.2); Bilirubin Indirect, Calculated 0.6 mg/dL (0.2-0.8); Bilirubin Total 0.9 mg/dL (0.2-1.0); Magnesium 2.9 mg/dL (1.6-2.4); Troponin High Sensitivity 73.8 pg/mL (<58.9)
[2023-09-04 11:53] LABS: Potassium 6.9 mEq/L (3.5-5.1)
[2023-09-04] MEDS ORDERED: ALBUTEROL 2.5 MG/3 ML NEB SOL ONE (12:03)
[2023-09-04] MEDS ORDERED: INSULIN REGULAR (HUMAN) 100 UNIT/ML ONE (12:04)
[2023-09-04] MEDS ORDERED: SOD POLYSTYREN SUL 15 GM/60 ML UCUP ONE (12:04)
[2023-09-04] MEDS ORDERED: SODIUM BICARB 50 MEQ/50ML VIAL ONE (12:04)
[2023-09-04] MEDS ORDERED: CALCIUM GLUCONATE 1 GM IVPB 1 GM/50 ML BAG IV ONE (12:05)
[2023-09-04] MEDS ORDERED: D10W 250 ML IV ONE (12:05)
--- NOTE | 2023-09-04 12:46 | RAD REPORT ---
EXAM DESCRIPTION: Demetri Single View09/04/2023 11:08 am CLINICAL HISTORY: Cough COMPARISON: 2022 FINDINGS: The lungs appear clear of acute infiltrate. The heart is mildly enlarged IMPRESSION: No acute abnormalities displayed
[2023-09-04] MEDS: D5W 1,000 ML with NA BICARB 8.4% 150 MEQ IV SCH (13:00)
--- NOTE | 2023-09-04 13:14 | EDPHYS ---
Physician Documentation [facility] Name: Lisandro Livingston Age: 83 yrs Sex: Male : 1940 Arrival Date: 09/04/2023 Time: 10:24 Bed 3 Private MD: ED Physician Candido Cook HPI: 09/04 12:55 This 83 yrs old Male presents to ER via EMS with complaints of dehydration. mahesh 12:55 The patient presents with abdominal pain in the lower abdomen. Onset: The mahesh symptoms/episode began/occurred 1 week(s) ago. The patient presents with urinary symptoms, dribbling of urine, retention. Onset: The symptoms/episode began/occurred 1 week(s) ago. Modifying factors: The symptoms are alleviated by nothing, the symptoms are aggravated by nothing. NO URINE THIS WEEK , NOT EATING OR DRINKING. Associated signs and symptoms: The patient has no apparent associated signs or symptoms. Associated signs and symptoms: none. Historical: - Allergies: 10:33 NKDA; aa5 - PMHx: 10:33 Bladder cancer; Cancer; COVID; Hypertension; kidney CA; PROSTATE CA; aa5 - Immunization history:: Adult Immunizations up to date. - Social history:: Smoking status: . - Family history:: not pertinent. ROS: 12:55 Constitutional: Negative for fever, chills, and weight loss, Eyes: Negative for injury, mahesh pain, redness, and discharge, ENT: Negative for injury, pain, and discharge, Neck: Negative for injury, pain, and swelling, Cardiovascular: Negative for chest pain, palpitations, and edema, Respiratory: Negative for shortness of breath, cough, wheezing, and pleuritic chest pain, Back: Negative for injury and pain, : Negative for injury, bleeding, discharge, and swelling, MS/Extremity: Negative for injury and deformity, Skin: Negative for injury, rash, and discoloration, Neuro: Negative for headache, weakness, numbness, tingling, and seizure, Psych: Negative for depression, anxiety, suicide ideation, homicidal ideation, and hallucinations, Allergy/Immunology: Negative for hives, rash, and allergies, Endocrine: Negative for neck swelling, polydipsia, polyuria, polyphagia, and marked weight changes, Hematologic/Lymphatic: Negative for swollen nodes, abnormal bleeding, and unusual bruising, 12:55 Abdomen/GI: Positive for abdominal pain, of the right lower quadrant and left lower quadrant, Exam: 12:55 Constitutional: This is a well developed, well nourished patient who is awake, alert, mahesh and in no acute distress. Head/Face: Normocephalic, atraumatic. Eyes: Pupils equal round and reactive to light, extra-ocular motions intact. Lids and lashes normal. Conjunctiva and sclera are non-icteric and not injected. Cornea within normal limits. Periorbital areas with no swelling, redness, or edema. ENT: Nares patent. No nasal discharge, no septal abnormalities noted. Tympanic membranes are normal and external auditory canals are clear. Oropharynx with no redness, swelling, or masses, exudates, or evidence of obstruction, uvula midline. Mucous membranes moist. Neck: Trachea midline, no thyromegaly or masses palpated, and no cervical lymphadenopathy. Supple, full range of motion without nuchal rigidity, or vertebral point tenderness. No Meningismus. Chest/axilla: Normal chest wall appearance and motion. Nontender with no deformity. No lesions are appreciated. Cardiovascular: Regular rate and rhythm with a normal S1 and S2. No gallops, murmurs, or rubs. Normal PMI, no JVD. No pulse deficits. Respiratory: Lungs have equal breath sounds bilaterally, clear to auscultation and percussion. No rales, rhonchi or wheezes noted. No increased work of breathing, no retractions or nasal flaring. Back: No spinal tenderness. No costovertebral tenderness. Full range of motion. Male : Normal genitalia with no discharge or lesions. Skin: Warm, dry with normal turgor. Normal color with no rashes, no lesions, and no evidence of cellulitis. MS/ Extremity: Pulses equal, no cyanosis. Neurovascular intact. Full, normal range of motion. Neuro: Awake and alert, GCS 15, oriented to person, place, time, and situation. Cranial nerves II-XII grossly intact. Motor strength 5/5 in all extremities. Sensory grossly intact. Cerebellar exam normal. Normal gait. Psych: Awake, alert, with orientation to person, place and time. Behavior, mood, and affect are within normal limits. 12:55 ECG was reviewed by the Attending Physician. 12:55 Abdomen/GI: Inspection: abdomen appears normal, Bowel sounds: normal, Palpation: mild abdominal tenderness, in the suprapubic area, right lower quadrant and left lower quadrant, Liver: no appreciated palpable abnormalities, Hernia: not appreciated, Vital Signs: 10:41 BP 134 / 68; Pulse 62; Resp 18 S; Temp 98.7(O); Pulse Ox 99% on 3 lpm NC; kc6 11:19 BP 110 / 59; Pulse 47; Resp 15; Pulse Ox 99% on R/A; hb 12:53 BP 122 / 80; Pulse 62; Resp 19 S; Pulse Ox 100% on R/A; kc6 16:39 BP 105 / 62; Pulse 61; Resp 16 S; Pulse Ox 100% on R/A; kc6 18:48 BP 153 / 53; Pulse 59; Resp 17; Pulse Ox 99% on R/A; hb MDM: 10:34 Patient medically screened. mahesh 12:59 Differential Diagnosis altered mental status, sepsis, flu. Differential diagnosis: mahesh nonspecific abdominal pain, appendicitis, UTI, urinary retention, Humphreys catheter problem, prostatitis, urethritis, bowel obstruction, gastroesophageal reflux disease, non-specific abd pain, pancreatitis, Peptic Ulcer Disease, urinary tract infection. Data reviewed: vital signs, nurses notes, EMS record, lab test result(s), EKG, radiologic studies, CT scan, plain films. Consideration of Admission/Observation Patient was admitted/placed on observation. Escalation of care including admission/observation considered. I considered the following discharge prescriptions or medication management in the emergency department Medications were administered in the Emergency Department. See MAR. Test considered but Not performed: MRI: NO ABD MRI. 09/04 10:35 Order name: Basic Metabolic Panel; Complete Time: 11:56 [facility] 09/04 10:35 Order name: CBC with Diff; Complete Time: 11:51 [facility] 09/04 10:35 Order name: LFT's; Complete Time: 11:56 mahesh 09/04 10:35 Order name: Magnesium; Complete Time: 11:56 [facility] 09/04 10:35 Order name: NT PRO-BNP; Complete Time: 11:56 mahesh 09/04 10:35 Order name: PT-INR; Complete Time: 11:51 mahesh 09/04 10:35 Order name: Troponin HS; Complete Time: 11:56 mahesh 09/04 10:35 Order name: Lipase; Complete Time: 11:56 [facility] 09/04 10:35 Order name: Urinalysis w/ reflexes mahesh 09/04 10:35 Order name: SARS RAPID; Complete Time: 11:51 mahesh 09/04 10:35 Order name: Flu; Complete Time: 11:51 mahesh 09/04 11:06 Order name: glucometer results - FOR PT WITH NO ID; Complete Time: 11:51 aa5 09/04 13:38 Order name: Phosphorus; Complete Time: 17:32 mahesh 09/04 13:38 Order name: Uric Acid; Complete Time: 17:32 mahesh 09/04 13:38 Order name: BMP; Complete Time: 17:32 mahesh 09/04 14:57 Order name: Creatine Phosphokinase; Complete Time: 17:32 EDMS 09/04 14:57 Order name: Osmolality, Urine EDMS 09/04 14:57 Order name: PTH Intact; Complete Time: 17:46 EDMS 09/04 14:57 Order name: UR POTASSIUM EDMS 09/04 14:57 Order name: Ur Protein EDMS 09/04 14:57 Order name: UR SODIUM EDMS 09/04 14:57 Order name: Vitamin D, 25 (OH), TOTAL; Complete Time: 17:46 EDMS 09/04 19:27 Order name: Basic Metabolic Panel EDMS 09/04 19:27 Order name: Urinalysis w/ reflexes EDMS 09/04 19:27 Order name: CBC with Automated Diff EDMS 09/04 19:27 Order name: CBC with Automated Diff EDMS 09/04 19:27 Order name: CBC with Automated Diff EDMS 09/04 19:27 Order name: CBC with Automated Diff EDMS 09/04 19:27 Order name: Comprehensive Metabolic Panel EDMS 09/04 19:27 Order name: Comprehensive Metabolic Panel EDMS 09/04 19:27 Order name: Comprehensive Metabolic Panel EDMS 09/04 19:27 Order name: Comprehensive Metabolic Panel EDMS 09/04 19:27 Order name: Magnesium EDMS 09/04 19:27 Order name: Magnesium EDMS 09/04 19:27 Order name: Troponin High Sensitivity EDMS 09/04 19:27 Order name: Troponin High Sensitivity EDMS 09/04 19:27 Order name: Troponin High Sensitivity EDMS 09/04 10:35 Order name: XRAY Chest (1 view); Complete Time: 13:14 mahesh 09/04 11:48 Order name: CT Stone Protocol; Complete Time: 14:36 [facility] 09/04 10:35 Order name: EKG; Complete Time: 10:36 [facility] 09/04 10:35 Order name: Cardiac monitoring; Complete Time: 10:57 [facility] 09/04 10:35 Order name: EKG - Nurse/Tech; Complete Time: 10:57 [facility] 09/04 10:35 Order name: IV Saline Lock; Complete Time: 11:13 [facility] 09/04 10:35 Order name: Labs collected and sent; Complete Time: 11:13 [facility] 09/04 10:35 Order name: O2 Per Protocol; Complete Time: 10:40 [facility] 09/04 10:35 Order name: O2 Sat Monitoring; Complete Time: 10:40 [facility] 09/04 10:35 Order name: Bladder Scanner; Complete Time: 11:59 [facility] 09/04 11:55 Order name: Humphreys; Complete Time: 12:33 [facility] EC:55 Rate is 51 beats/min. Rhythm is regular. QRS [place] is Normal. MO interval is normal. QRS mahesh interval is normal. QT interval is normal. No Q waves. T waves are Normal. No ST changes noted. Clinical impression: NSR w/ Non-specific ST/T Changes and No evidence of ischemia. Interpreted by me. Reviewed by me. Administered Medications: 11:14 Drug: NS 0.9% IV 1000 ml IV at 1 bolus Per protocol; 1000 mL bolus Route: IV; Rate: 1 hb bolus; Site: right antecubital; 16:39 Follow up: Response: No adverse reaction; IV Status: Completed infusion; IV Intake: kc6 1000ml 12:15 Drug: Calcium Gluconate IVPB 1 grams IVPB once over 10 mins; (mix in NS 100 mL) Route: kc6 IVPB; Infused Over: 10 mins; Site: right antecubital; 16:39 Follow up: Response: No adverse reaction; IV Status: Completed infusion; IV Intake: kc6 100ml 12:15 Drug: D10 in Water IVP 250 ml IVP once Route: IVP; Site: right antecubital; 6 16:40 Follow up: Response: No adverse reaction [facility] 12:15 Drug: Albuterol Inhalation 7.5 mg Inhalation once Route: Inhalation; 6 16:40 Follow up: Response: No adverse reaction [facility] 12:15 Drug: Insulin Regular Human IVP 10 units IVP once {Co-Signature: [email or web address] (Attila [email or web address] RN).} Route: IVP; Site: right antecubital; 16:40 Follow up: Response: No adverse reaction kc6 12:15 Drug: Sodium Bicarbonate IVP 1 amp IVP once; (50 mL); equals 50 mEq Route: IVP; Site: kc6 right antecubital; 16:41 Follow up: Response: No adverse reaction kc6 12:52 Drug: Kayexalate PO 60 grams PO once Route: PO; kc6 16:40 Follow up: Response: No adverse reaction kc6 14:20 Drug: D5W IV 1000 ml, Sodium Bicarbonate IVP 150 mEq IV at 100 ml/hr continuous Route: kc6 IV; Rate: 100 ml/hr; Site: right antecubital; 16:41 Follow up: Response: No adverse reaction; IV Status: Infusion continued upon admission; kc6 IV Intake: 1000ml Point of Care Testing: Blood Glucose: 11:06 Blood Glucose: 92 mg/dL; aa5 Ranges: Critical Glucose Levels:Adult <50 mg/dl or >400 mg/dl <40 mg/dl or >180 mg/dl Disposition Summary: 09/04/23 13:13 Hospitalization Ordered Notes: Hospitalization Status: Inpatient Admission mahesh Location: Telemetry/[facility] (Inpatient) mahesh Condition: Fair mahesh Problem: new mahesh Symptoms: have improved mahesh Bed/Room Type: Standard mahesh Provider: Tahir Jenkins(09/04/23 13:17) mahesh Room Assignment: [facility] [place](09/04/23 19:28) [facility] Diagnosis - Acute kidney failure, unspecified mahesh - Hyperkalemia mahesh - Bradycardia, unspecified mahesh - Non ST elevation [place] mahesh - Retention of urine, unspecified mahesh Forms: - Medication Reconciliation Form mahesh - SBAR form mahesh - Leadership Thank You Letter mahesh Signatures: Dispatcher [employer] EDCandido Willis MD MD cha Waters, Shelly, GOLD NIB GRINDER-C GOLD NIB GRINDER-Csnw Mikal Jenkins MD MD rn Calderon, Audri, RN RN aa5 Brittany Monroy RN RN hb Campbell, Kaitlyn, RN RN kc6 Mindy Wallace [facility] Attila Geronimo RN ja1 Corrections: (The following items were deleted from the chart) 13:17 13:13 Wilver Nam cha mahesh 19:28 13:13 mahesh kmf
--- NOTE | 2023-09-04 13:14 | ER ---
Nurse's Notes [facility] Name: Lisandro Livingston Age: 83 yrs Sex: Male : 1940 Arrival Date: 09/04/2023 Time: 10:24 Bed 3 Private MD: Diagnosis: Acute kidney failure, unspecified;Hyperkalemia;Bradycardia, unspecified;Non ST elevation NM;Retention of urine, unspecified Presentation: 09/04 10:33 Chief complaint: EMS states: possible dehydration, was in [place] for 1 week and did not aa5 eat or hydrate much. FSBG by EMS 65, pt was given oral glucose. 10:33 Coronavirus screen: fatigue. Ebola Screen: Patient denies travel to an Ebola-affected [facility] area in the 21 days before illness onset. Risk Assessment: Do you want to hurt yourself or someone else? Patient reports no desire to harm self or others. Onset of symptoms was August 2023. 10:33 Acuity: JUDIT 3 aa5 10:33 Method Of Arrival: EMS: [facility] aa5 Historical: - Allergies: 10:33 NKDA; aa5 - PMHx: 10:33 Bladder cancer; Cancer; COVID; Hypertension; kidney CA; PROSTATE CA; aa5 - Immunization history:: Adult Immunizations up to date. - Social history:: Smoking status: . - Family history:: not pertinent. Screenin:59 [facility] ED Fall Risk Assessment (Adult) Score/Fall Risk Level 3 or more points = High hb Risk Oriented to surroundings, Maintained a safe environment, Educated pt \T\ family on fall prevention, incl call for assistance when getting out of bed, Assessed \T\ reinforced patient's understanding of fall precautions, Provided non-skid footwear, Hourly rounding (assess needs \T\ fall precautionary measures) done. Abuse screen: Denies threats or abuse. Denies injuries from another. Nutritional screening: No deficits noted. Tuberculosis screening: No symptoms or risk factors identified. Assessment: 11:00 General: Appears in no apparent distress. Behavior is calm, cooperative. Pain: Denies hb pain. Neuro: Level of Consciousness is awake, alert, obeys commands, Oriented to person, place, time, situation. Cardiovascular: Patient's skin is warm and dry. Respiratory: Respiratory effort is even, unlabored, Respiratory pattern is regular, symmetrical. GI: No signs and/or symptoms were reported involving the gastrointestinal system. : No signs and/or symptoms were reported regarding the genitourinary system. EENT: No signs and/or symptoms were reported regarding the EENT system. Derm: Skin is pink, warm \T\ dry. Musculoskeletal: No signs and/or symptoms reported regarding the musculoskeletal system. 11:05 Reassessment: Brittany Monroy RN at bedside attempting IV, pt is a hard stick. . aa5 12:00 Reassessment: Patient appears in no apparent distress at this time. Patient and/or hb family updated on plan of care and expected duration. Pain level reassessed. 13:38 Reassessment: Patient appears in no apparent distress at this time. No changes from hb previously documented assessment. Patient and/or family updated on plan of care and expected duration. Pain level reassessed. 14:38 Reassessment: Patient appears in no apparent distress at this time. No changes from kc previously documented assessment. Patient and/or family updated on plan of care and expected duration. Pain level reassessed. Patient is alert, oriented x 3, equal unlabored respirations, skin warm/dry/pink. 15:38 Reassessment: Patient appears in no apparent distress at this time. No changes from kc6 previously documented assessment. Patient and/or family updated on plan of care and expected duration. Pain level reassessed. Patient is alert, oriented x 3, equal unlabored respirations, skin warm/dry/pink. 16:38 Reassessment: Patient appears in no apparent distress at this time. No changes from kc6 previously documented assessment. Patient and/or family updated on plan of care and expected duration. Pain level reassessed. Patient is alert, oriented x 3, equal unlabored respirations, skin warm/dry/pink. 18:48 Reassessment: Patient appears in no apparent distress at this time. No changes from previously documented assessment. Patient and/or family updated on plan of care and expected duration. Pain level reassessed. 19:33 General: attempted to call report. bed not assigned yet. lg3 Vital Signs: 10:41 BP 134 / 68; Pulse 62; Resp 18 S; Temp 98.7(O); Pulse Ox 99% on 3 lpm NC; kc6 11:19 BP 110 / 59; Pulse 47; Resp 15; Pulse Ox 99% on R/A; hb 12:53 BP 122 / 80; Pulse 62; Resp 19 S; Pulse Ox 100% on R/A; kc6 16:39 BP 105 / 62; Pulse 61; Resp 16 S; Pulse Ox 100% on R/A; kc6 18:48 BP 153 / 53; Pulse 59; Resp 17; Pulse Ox 99% on R/A; hb ED Course: 10:33 Patient arrived in ED. aa5 10:33 Arm band placed on. aa5 10:34 Candido Cook MD is Attending Physician. mahesh 10:38 Triage completed. aa5 10:40 Missed attempt(s): 22 gauge in left forearm. Bleeding controlled, band aid applied, aa5 catheter tip intact. 10:45 Missed attempt(s): 22 gauge in left wrist. Bleeding controlled, band aid applied, aa5 catheter tip intact. 10:58 EKG done, by ED staff. aw1 10:59 Patient has correct armband on for positive identification. Provided Education on: hb tests, result times. 11:10 XRAY Chest (1 view) In Process Unspecified. EDMS 11:13 Inserted saline lock: 22 gauge in right antecubital area, using aseptic technique. hb Blood collected. 11:19 Flu Sent. hb 11:19 SARS RAPID Sent. hb 11:19 Lipase Sent. hb 11:19 Basic Metabolic Panel Sent. hb 11:19 CBC with Diff Sent. hb 11:19 LFT's Sent. hb 11:19 Magnesium Sent. hb 11:19 NT PRO-BNP Sent. hb 11:19 PT-INR Sent. hb 11:19 Troponin HS Sent. hb 12:30 Coud inserted, using sterile technique, 16 Fr. Returned clear yellow urine. To gravity kc6 drainage. Clamped. Urine specimen collected. Patient tolerated well. 12:30 Patient maintains SpO2 saturation greater than 95% on room air. kc6 13:11 Wilver Nam MD is Hospitalizing Provider. mahesh 13:15 CT Stone Protocol In Process Unspecified. EDMS 13:17 Tahir Jenkins MD is Hospitalizing Provider. mahesh 20:02 No provider procedures requiring assistance completed. Patient admitted, IV remains in lg3 place. Administered Medications: 11:14 Drug: NS 0.9% IV 1000 ml IV at 1 bolus Per protocol; 1000 mL bolus Route: IV; Rate: 1 hb bolus; Site: right antecubital; 16:39 Follow up: Response: No adverse reaction; IV Status: Completed infusion; IV Intake: kc6 1000ml 12:15 Drug: Calcium Gluconate IVPB 1 grams IVPB once over 10 mins; (mix in NS 100 mL) Route: kc6 IVPB; Infused Over: 10 mins; Site: right antecubital; 16:39 Follow up: Response: No adverse reaction; IV Status: Completed infusion; IV Intake: kc6 100ml 12:15 Drug: D10 in Water IVP 250 ml IVP once Route: IVP; Site: right antecubital; kc6 16:40 Follow up: Response: No adverse reaction kc6 12:15 Drug: Albuterol Inhalation 7.5 mg Inhalation once Route: Inhalation; kc6 16:40 Follow up: Response: No adverse reaction kc6 12:15 Drug: Insulin Regular Human IVP 10 units IVP once {Co-Signature: zulema (Attila Geronimo kc6 RN).} Route: IVP; Site: right antecubital; 16:40 Follow up: Response: No adverse reaction kc6 12:15 Drug: Sodium Bicarbonate IVP 1 amp IVP once; (50 mL); equals 50 mEq Route: IVP; Site: [facility] right antecubital; 16:41 Follow up: Response: No adverse reaction kc6 12:52 Drug: Kayexalate PO 60 grams PO once Route: PO; kc6 16:40 Follow up: Response: No adverse reaction kc6 14:20 Drug: D5W IV 1000 ml, Sodium Bicarbonate IVP 150 mEq IV at 100 ml/hr continuous Route: kc6 IV; Rate: 100 ml/hr; Site: right antecubital; 16:41 Follow up: Response: No adverse reaction; IV Status: Infusion continued upon admission; kc6 IV Intake: 1000ml Medication: 11:19 VIS not applicable for this client. hb Point of Care Testing: Blood Glucose: 11:06 Blood Glucose: 92 mg/dL; aa5 Ranges: Intake: 16:39 IV: 1000ml; Total: 1000ml. kc6 16:39 IV: 100ml; Total: 1100ml. kc6 16:41 IV: 1000ml; Total: 2100ml. kc6 Outcome: 13:13 Decision to Hospitalize by Provider. mahesh 20:02 Admitted to [facility]/surg accompanied by tech, via stretcher, room 208, lg3 20:02 Condition: stable 20:02 Instructed on the need for admit, Demonstrated understanding of instructions, 20:02 Patient left the ED. lg3 Signatures: Dispatcher [employer] Candido Barnes MD MD cha Calderon, Audri, RN RN aa5 Brittany Monroy RN RN Rosalba Vernon RN RN lg3 Hilary Cristina RN RN kc6 Marisa Powers aw1 Attila Geronimo RN ja1
--- NOTE | 2023-09-04 13:51 | RAD REPORT ---
EXAM DESCRIPTION: CT - Stone Protocol - 09/04/2023 1:15 pm CLINICAL HISTORY: ABD PAIN COMPARISON: Abdomen Pelvis W Contrast dated 02/16/2023; Stone Protocol dated 08/07/2022; Abdomen P bess Wo Contrast dated 07/06/2020; Abdomen Pelvis W Contrast dated 06/25/2020 TECHNIQUE: Thin cut axial CT imaging of the abdomen and pelvis was performed without IV contrast. Mu ltiplanar reformats were generated and reviewed. All CT scans are performed using dose optimization technique as appropriate and may include automated exposure control or mA/KV adjustment according to patient size. FINDINGS: Central right lower lobe 2 cm nodule. Exophytic heterogeneous right inferior renal pole 7. 4 cm mass. These are likely stable allowing for differences in technique. The liver, spleen, and pancreas show no suspicious findings. Gallbladder and biliary tree are also wi thout suspicious finding. Left kidney shows no suspicious masses. No hydroureteronephrosis bilaterally. Bilateral punctate calc ifications near the renal pyramids are favored to be vascular. No dilated bowel loops or bowel wall thickening. No free air, free fluid or inflammatory stranding. N o hernia, mass or bulky lymphadenopathy. Sequelae of cystectomy and prostatectomy, with neobladder an d catheter in place. No suspicious bony findings. IMPRESSION: No acute intra-abdominal process. No large right lower renal pole mass and probable metastatic nodule in the right lower lung are again seen. Sequelae of cystectomy and prostatectomy with catheter within the neobladder are again noted.
--- NOTE | 2023-09-04 16:11 | P.HP ---
Certification for Inpatient With expected LOS: >2 Midnights Patient will require the following post-hospital care: Home Health Services Practitioner: I am a practitioner with admitting privileges, knowledge of patient current condition, hospital course, and medical plan of care. Services: Services provided to patient in accordance with Admission requirements found in Title 42 Section 412.3 of the Code of Federal Regulations <Gerri Escobar - Last Filed: 09/04/23 16:14> Patient History Date of Service: 09/04/23 Reason for admission: dehydration, weakness, electrolyte derangement History of Present Illness: Mr. Sara Livingston is a 83-year-old male with a past medical history of chronic renal disease, bladder cancer, hypertension, prostate cancer, and a mass to the right kidney. He was recently in [place] and when he returned became so weak (on Thursday) that he was unable to continue ambulation. In the emergency department on laboratory evaluation his sodium was 123, potassium 6.9, chloride 102, carbon dioxide 16, with a creatinine of 2.24, and a BUN of 149. - Past Medical/Surgical History Has patient received pneumonia vaccine in the past: No Diabetic: No -: Chronic renal disease -: Bladder Cancer, [facility] Oncology-Dr. Antolin Valera -: Varicose veins -: HTN -: Depression with anxiety -: Nicotine dependence -: Possible kidney cancer necrotic mass in the right kidney -: Siegel virus pneumonia -: Prostate cancer -: Pneumonia -: Ryan Cataracts sx -: Bladder reconstruction -: Bladder surgery -: Vascular surgery and is left calf Psychosocial/ Personal History: . 5 children - Family History Family History: Reviewed- Non-Contributory - Family History Mother -: Lung disease, Diabetes Father -: Hypertension, Lung disease, Diabetes - Social History Smoking Status: Former smoker Alcohol use: No CD- Drugs: No Caffeine use: No Place of Residence: Home <Gerri Escobar - Last Filed: 09/04/23 16:14> Date of Service: 09/04/23 <Wilver Nam - Last Filed: 09/04/23 16:27> Allergies No Known Allergies Allergy (Unverified 05/27/19 08:15) Home Medications: Aspirin [Aspirin EC 81 MG] 1 tab PO DAILY 07/09/20 Gabapentin 300 mg PO BID 07/09/20 Apixaban [Eliquis] 5 mg PO BID #60 tablet 07/19/20 Atorvastatin Calcium [Lipitor*] 20 mg PO BEDTIME #30 tab 07/19/20 Calcium Carbonate [Oscal*] 1,000 mg PO BID #60 tab 07/19/20 Cholecalciferol (Vitamin D3) [Vitamin D 1000 Iu Tab*] 2,000 unit PO DAILY #30 tab 07/19/20 Melatonin [Melatonin*] 3 mg PO BEDTIME #30 tablet 07/19/20 Tamsulosin [Flomax*] 0.8 mg PO BEDTIME #30 cap 07/19/20 Thiamine HCl [Vitamin B-1*] 200 mg PO DAILY #30 tablet 07/19/20 predniSONE [Deltasone*] 10 mg PO BID #10 tab 07/19/20 Ondansetron [Zofran] 4 mg PO Q8H PRN 7 Days #20 tab 08/08/22 Review of Systems 10-point ROS is otherwise unremarkable General: Weakness Eyes: Unremarkable ENT: Unremarkable Respiratory: Unremarkable Cardiovascular: Unremarkable Gastrointestinal: Other (anorexia) Genitourinary: Unremarkable Musculoskeletal: Unremarkable Integumentary: Unremarkable Neurological: Unremarkable Lymphatics: Unremarkable <Escobar,Gerri - Last Filed: 09/04/23 16:14> Physical Examination - Vital Signs Blood Pressure: 127/61 Pulse: 57 Respirations: 15 Pulse Ox (%): 98 - Physical Exam General: Alert, Confused HEENT: Atraumatic, Normocephalic Neck: Supple Respiratory: Clear to auscultation bilaterally Cardiovascular: No edema Capillary refill: <2 Seconds Gastrointestinal: Soft and benign Musculoskeletal: No clubbing Integumentary: Other (pallor) Neurological: Other (gait not tested), Abnormal strength Lymphatics: No axilla or inguinal lymphadenopathy Urinary: Humphreys catheter External genitalia: Deferred Rectal: Deferred - Studies Laboratory Data (last 24 hrs) 09/04/23 09/04/23 09/04/23 11:12 11:12 11:12 WBC 8.10 Hgb 16.5 Hct 47.8 Plt Count 206 PT 11.5 INR 1.05 Sodium 123 L Potassium 6.9 H* BUN 149 H Creatinine 2.24 H Glucose 107 H Magnesium 2.9 H Total Bilirubin 0.9 AST 50 H ALT 102 H Alkaline Phosphatase 184 H Lipase 34 Microbiology Data (last 24 hrs): 09/04/23 11:14 Nasopharnyx Influenza Type A Antigen Screen - Final 09/04/23 11:14 Nasopharnyx Influenza Type B Antigen Screen - Final <Gerri Escobar - Last Filed: 09/04/23 16:14> - Studies Laboratory Data (last 24 hrs) 09/04/23 09/04/23 09/04/23 11:12 11:12 11:12 WBC 8.10 Hgb 16.5 Hct 47.8 Plt Count 206 PT 11.5 INR 1.05 Sodium 123 L Potassium 6.9 H* BUN 149 H Creatinine 2.24 H Glucose 107 H Magnesium 2.9 H Total Bilirubin 0.9 AST 50 H ALT 102 H Alkaline Phosphatase 184 H Lipase 34 Microbiology Data (last 24 hrs): 09/04/23 11:14 Nasopharnyx Influenza Type A Antigen Screen - Final 09/04/23 11:14 Nasopharnyx Influenza Type B Antigen Screen - Final <Wilver Nam C - Last Filed: 09/04/23 16:27> Assessment and Plan - Advance Directives Does patient have a Living Will: No Does patient have a Durable POA for Healthcare: No <Gerri Escobar - Last Filed: 09/04/23 16:14> Physician Review Additional Text: Pt seen and examined. I agree with the note by the RAIL SIGNAL WORKER. Pt is an 83 yo male with past medical history of 3 Bladder cancer, COVID, Hypertension, kidney CA, and PROSTATE CA who presents with volume depletion. Pt was dehydrated and had fever while in [place] last thursday. his daughter gave him tylenol. He started feeling ill and came to the ER for evaluation. On admission, Lab studies show Na 123, Cr 2.2, BUN 149, K 6.9, Hco3 16, WBC 8.1, AST 50, ALT 102, Alk phos 184, and troponin 73.8. CT abd is unremarkable. CXR is unremarkable. At bedside, pt is in NAD. A/p: Volume depletion: Will continue IVF DOMINIQUE: Cr is 2.2, BUN 149. Will continue IVF, avoid nephrotoxins and monitor renal function. Hyponatremia: Na is 123. Will continue IVF and trend Na level. Pt is not confused. Hyperkalemia: K is 6.9. Will give lokelma. Transminitis: Will monitor LFTs. Will continue IVF and trend LFTs. Will check hepatitis panel. Will continue home meds for other chronic medical problems. DVT ppx: SCD Code: full <Wilver Nam - Last Filed: 09/04/23 16:27>
[2023-09-04 17:00] LABS: Potassium 5.6 mEq/L (3.5-5.1)
[2023-09-04 21:14] VITALS: BMI 18.6
[2023-09-04 21:35] LABS: Potassium 4.5 mEq/L (3.5-5.1)
[2023-09-04 21:41] LABS: Troponin High Sensitivity 76.6 pg/mL (<58.9)
[2023-09-04 23:44] LABS: Calcium Oxalate Crystals- Ur Few /HPF (None Seen); Specific Gravity 1.012 (1.005-1.030); Urine Bacteria <20 /HPF (<20); Urine Bilirubin NEGATIVE (Negative); Urine Blood 1+ (Negative); Urine Clarity Extremely Turbid (Clear); Urine Color Light-Yellow (Yellow); Urine Glucose NEGATIVE (Negative); Urine Protein 1+ (Negative); Urine Urobilinogen Normal (Normal)
[2023-09-05] MEDS: Ringers Lactate 1,000 ML IV SCH (01:47)
[2023-09-05 03:21] LABS: Absolute Lymphocytes (CBC) 1.1 K/uL (0.7-4.9); Hematocrit 39.7 % (39.6-49.0); Lymphocytes % 13.8 % (15.3-44.8); MCV 87.5 fL (80-100); MPV 7.9 fL (7.6-11.3); Platelets 182 thou/uL (152-406); RBC Red Blood Cell Count 4.54 M/uL (4.33-5.43)
[2023-09-05 03:46] LABS: Albumin 2.8 g/dL (3.4-5.0); Magnesium 2.3 mg/dL (1.6-2.4); Potassium 3.7 mEq/L (3.5-5.1); Protein, Total 6.2 g/dL (6.4-8.2)
[2023-09-05 03:48] LABS: Troponin High Sensitivity 84.5 pg/mL (<58.9)
[2023-09-05] MEDS: GABAPENTIN 300 MG CAP PO SCH (08:58)
[2023-09-05] MEDS: APIXABAN 5 MG TABLET PO SCH (08:58)
[2023-09-05] MEDS: ASPIRIN EC 81 MG TAB PO SCH (08:59)
[2023-09-05] MEDS: CEFTRIAXONE 1,000 MG in NA CHLORIDE 0.9% 50 ML IVPB SCH (08:59)
[2023-09-05] MEDS: DRISDOL (VITAMIN D=ERGOCALCIFEROL) 50000 UNIT CAP PO SCH (08:59)
--- NOTE | 2023-09-05 10:50 | P.PN ---
Subjective Date of Service: 09/05/23 Chief Complaint: dehydration, weakness, electrolyte derangement Subjective: Improving <Gerri Escobar - Last Filed: 09/05/23 10:56> Date of Service: 09/06/23 <Wilver Nam Ar - Last Filed: 09/06/23 10:32> Review of Systems 10-point ROS is otherwise unremarkable General: As per HPI Eyes: Unremarkable ENT: Unremarkable Respiratory: Unremarkable Cardiovascular: Unremarkable Gastrointestinal: Other (cramping, no bm yet) Genitourinary: Unremarkable Musculoskeletal: Unremarkable Integumentary: Unremarkable Neurological: Unremarkable <Gerri Escobar - Last Filed: 09/05/23 10:56> Physical Examination - Vital Signs Temperature: 98 F Blood Pressure: 93/55 Pulse: 63 Respirations: 14 Pulse Ox (%): 96 - Physical Exam General: Alert, In no apparent distress, Oriented x3 HEENT: Atraumatic, Normocephalic Neck: Supple, 2+ carotid pulse no bruit Respiratory: Clear to auscultation bilaterally Cardiovascular: No edema, Abnormal S3, Systolic murmur Capillary refill: <2 Seconds Gastrointestinal: Soft and benign Musculoskeletal: No clubbing Integumentary: No rashes, No breakdown Neurological: Other (c/o numbness to feet, peripheral pulses +, gait not tested), Abnormal strength Lymphatics: No axilla or inguinal lymphadenopathy External genitalia: Deferred Rectal: Deferred - Studies Laboratory Data (last 24 hrs) 09/04/23 09/04/23 09/04/23 16:30 11:12 11:12 WBC 8.10 Hgb 16.5 Hct 47.8 Plt Count 206 PT 11.5 INR 1.05 Sodium 126 L Potassium 5.6 H D BUN 131 H Creatinine 1.93 H Glucose 99 Uric Acid 8.0 H Phosphorus 4.0 Magnesium Total Bilirubin AST ALT Alkaline Phosphatase Lipase 09/04/23 11:12 WBC Hgb Hct Plt Count PT INR Sodium 123 L Potassium 6.9 H* BUN 149 H Creatinine 2.24 H Glucose 107 H Uric Acid Phosphorus Magnesium 2.9 H Total Bilirubin 0.9 AST 50 H ALT 102 H Alkaline Phosphatase 184 H Lipase 34 Microbiology Data (last 24 hrs): 09/04/23 11:14 Nasopharnyx Influenza Type A Antigen Screen - Final 09/04/23 11:14 Nasopharnyx Influenza Type B Antigen Screen - Final <Gerri Escobar - Last Filed: 09/05/23 10:56> Assessment And Plan - Plan Volume depletion: Will continue IVF DOMINIQUE: Cr is 2.2, BUN 149. Will continue IVF, avoid nephrotoxins and monitor renal function. creatinine 2.2 -> 1.82 -> 1.38, BUN 149 -> 122 Nephrology consulted, appreciate consult Hyponatremia: Na is 123. Will continue IVF and trend Na level. Pt is not confused. Na now 130 Hyperkalemia: K is 6.9. Will give lokelma. no BM yet, K trending down 6.9 -> 4.5 -> 3.7 Transminitis: Will monitor LFTs. Will continue IVF and trend LFTs. Will check hepatitis panel. Will continue home meds for other chronic medical problems. DVT ppx: SCD Code: full <Gerri Escobar - Last Filed: 09/05/23 10:56> - Plan Pt seen and examined. I agree with the note by the CUSTOMER ACCOUNT MANAGER. Pt is a feeling better. NA is improving. Will continue rocephin for UTI. <Wilver Nam - Last Filed: 09/06/23 10:32>
--- NOTE | 2023-09-05 11:06 | RAD REPORT ---
EXAM DESCRIPTION: US - Renal Ultrasound-Complete - 09/05/2023 10:43 am CLINICAL HISTORY: abd pain COMPARISON: Stone Protocol dated 09/04/2023 FINDINGS: Both kidneys are normal in size, shape and echotexture. The right kidney measures 9.6 cm. Right lower pole renal mass measuring 7.2 x 6.6 cm . No hydronephro sis. Renal vascular calcifications. The left kidney measures 9.9 cm. No hydronephrosis, focal mass or perinephric fluid. Renal vascular c alcifications. The bladder is decompressed via Humphreys catheter. IMPRESSION: No hydronephrosis. Solid appearing right lower pole renal mass.
[2023-09-05] MEDS: D5W 1,000 ML IV SCH (12:40)
[2023-09-05 15:41] LABS: Hepatitis B Core IgM Nonreactive (Nonreactive); Hepatitis B surface AG Interp. Nonreactive (Nonreactive); Hepatitis C Virus Ab Nonreactive (Nonreactive)
[2023-09-05] MEDS: ATORVASTATIN 20 MG TAB PO SCH (20:31)
[2023-09-05] MEDS: TAMSULOSIN 0.4 MG SR CAP PO SCH (20:32)
[2023-09-05 21:04] LABS: Potassium 3.3 mEq/L (3.5-5.1)
[2023-09-05] MEDS: POTASSIUM CL SA 10 MEQ TAB PO ONE ×2 (22:07→22:13)
[2023-09-05] MEDS: NA CHLORIDE 0.9% 1,000 ML IV SCH (22:23)
[2023-09-06 03:20] LABS: Absolute Lymphocytes (CBC) 1.2 K/uL (0.7-4.9); Hematocrit 37.1 % (39.6-49.0); Lymphocytes % 18.2 % (15.3-44.8); MCV 87.7 fL (80-100); MPV 7.6 fL (7.6-11.3); Platelets 144 thou/uL (152-406); RBC Red Blood Cell Count 4.23 M/uL (4.33-5.43)
[2023-09-06 03:57] LABS: Albumin 2.5 g/dL (3.4-5.0); Bilirubin Total 1.1 mg/dL (0.2-1.0); Phosphorus 3.1 mg/dL (2.5-4.9); Potassium 3.7 mEq/L (3.5-5.1); Protein, Total 5.8 g/dL (6.4-8.2); Uric Acid 6.6 mg/dL (3.5-7.2)
[2023-09-06 03:58] LABS: Thyroid Stimulating Hormone 0.754 uIU/mL (0.358-3.740)
--- NOTE | 2023-09-06 04:59 | CON ---
Date of Consultation: 09/05/2023 Chief Complaint: Acute kidney injury, hyponatremia. History Of Present Illness: The patient is admitted for volume depletion, generalized weakness, and electrolyte abnormalities. The patient is an 83-year-old man with past medical history of chronic ki dney disease stage 3, bladder cancer, hypertension, prostate cancer, and history of right kidney mass . The patient was recently visiting [place], and when he returned home became very weak and complaine d of dizziness and was unable to continue ambulation. In the emergency department on laboratory eval uation, his sodium level was 123, potassium 6.9, chloride 102, carbon dioxide 16, creatinine 2.24, BU N 149. Past Medical History: The patient has multiple medical problems including past medical history of ch ronic kidney disease stage 3, bladder cancer. He was seen by [facility] On[facility]. Varicose vein, hypert ension, depression with anxiety, nicotine dependence, possible kidney cancer, necrotic mass in the ri ght kidney, pneumonia, COVID infection, prostate cancer, bilateral cataract surgery, bladder reconstr uction, bladder surgery, vascular surgery on the left calf. Social History: He is . Has 5 children. He is a former smoker. Family History: Mother; lung disease, diabetes and, hypertension. Father; hypertension, lung diseas e, diabetes. No kidney disease. Review of Systems: Constitutional: Denies fever, chills. Eyes: Denies vision changes. Ears, Nose, Mouth, and Throat: Denies sore throat, earache. Respiratory: Had shortness of breath. Cardiovascular: Denied chest pain or syncope, although he was complaining of generalized weakness an d dizziness. GI: Denies nausea, vomiting. He has recent history of decreased p.o. intake. : Denies dysuria, hematuria. Musculoskeletal: Denies muscle aches or joint swelling. Physical Examination: Vital Signs: Blood pressure 127/61, heart rate 67, respiratory rate 16, SpO2 98%. GENERAL: The patient is alert, remains confused. HEENT: Atraumatic, normocephalic. Anicteric sclerae. Neck: Supple. No JVD. Respiratory: Clear to auscultation bilaterally. Cardiovascular: S1, S2. No pericardial friction rub. Abdomen: Soft, benign, nontender. Extremities: No clubbing. Neurologic: Moving extremities. No tremor. Genitourinary: The patient has a Humphreys catheter. Laboratory Data: WBC 8.1, hemoglobin 16.5, hematocrit 47.8. PT 11.5. Sodium 123, potassium 6.9, BU N 149, creatinine 2.24, magnesium 2.9, lipase 34. AP 184, AST 50, ALT 102. Impression And Plan: Acute kidney injury on chronic kidney disease. Patient has nonoliguric urine o utput. He was started on IV fluids and lactated Ringer was used. Hyponatremia is improving. Plan i s to adjust IV fluids for adequate hydration as well as to treat hyponatremia. BUN and creatinine ra amadou is elevated and potassium was elevated. Patient was treated for hyperkalemia and potassium level is improving. The patient received Lokelma, which was given for potassium of 6.9. Subsequently, po tassium level improved and today potassium is trending down. Patient received potassium replacement. Acute kidney injury is due to volume depletion, IV fluids. Hyponatremia likely is multifactorial. P don is to check TSH, cortisol level, urine osmolality, urinalysis, urine electrolytes. The patient w as found to have kidney mass. He has history of kidney cancer, prostate cancer, and bladder cancer. He will need to follow up with oncologists. EB/MODL Voice ID: [id number] Report ID: [id number]
[2023-09-06] MEDS: POTASSIUM CL SA 10 MEQ TAB PO ONE (05:08)
[2023-09-06 07:08] LABS: UR PROTEIN 61.2 mg/dL (<11.9); Urine Protein/Creatinine Ratio 1.7 ratio (<0.15)
[2023-09-06 07:09] LABS: UR POTASSIUM < 6.0 mmol/L (20-40); UR SODIUM 45 mmol/L (27-287)
--- NOTE | 2023-09-06 08:15 | P.PN ---
Date of Service: 09/06/23 Subjective Date of Service: 09/06/23 Chief Complaint: dehydration, weakness, electrolyte derangement Subjective: Improving Review of Systems 10-point ROS is otherwise unremarkable General: As per HPI Eyes: Unremarkable ENT: Unremarkable Respiratory: Unremarkable Cardiovascular: Unremarkable Gastrointestinal: Other (cramping, no bm yet) Genitourinary: Unremarkable Musculoskeletal: Unremarkable Integumentary: Unremarkable Neurological: alert and oriented, complains of bilateral heel pain Physical Examination - Vital Signs Temperature: 98 F Blood Pressure: 93/55 Pulse: 63 Respirations: 14 Pulse Ox (%): 96 - Physical Exam General: Alert, In no apparent distress, Oriented x3 HEENT: Atraumatic, Normocephalic Neck: Supple, 2+ carotid pulse no bruit Respiratory: Clear to auscultation bilaterally Cardiovascular: No edema, Abnormal S3, Systolic murmur Capillary refill: <2 Seconds Gastrointestinal: Soft and benign, + BM Musculoskeletal: No clubbing Integumentary: No rashes, No breakdown Neurological: Other (c/o numbness to feet, peripheral pulses +, gait not tested), Abnormal strength - improving Lymphatics: No axilla or inguinal lymphadenopathy External genitalia: Deferred Rectal: Deferred - Studies Laboratory Data (last 24 hrs) 09/04/23 09/04/23 09/04/23 16:30 11:12 11:12 WBC 8.10 Hgb 16.5 Hct 47.8 Plt Count 206 PT 11.5 INR 1.05 Sodium 126 L Potassium 5.6 H D BUN 131 H Creatinine 1.93 H Glucose 99 Uric Acid 8.0 H Phosphorus 4.0 Magnesium Total Bilirubin AST ALT Alkaline Phosphatase Lipase 09/04/23 11:12 WBC Hgb Hct Plt Count PT INR Sodium 123 L Potassium 6.9 H* BUN 149 H Creatinine 2.24 H Glucose 107 H Uric Acid Phosphorus Magnesium 2.9 H Total Bilirubin 0.9 AST 50 H ALT 102 H Alkaline Phosphatase 184 H Lipase 34 Microbiology Data (last 24 hrs): preliminary urine culture +4 gram negative rods Assessment And Plan - Plan Volume depletion: Will continue IVF DOMINIQUE: Will continue IVF, avoid nephrotoxins and monitor renal function. creatinine 2.2 -> 1.82 -> 1.38 -> 1.24, BUN 149 -> 122 -> 85 Nephrology consulted, appreciate consult Hyponatremia: Na is 123 -> 128. Will continue IVF and trend Na level. Pt is not confused. Hyperkalemia: Gave lokelma. +BM, K trending down 6.9 -> 4.5 -> 3.7 Transminitis: Will monitor LFTs AST -> 40, ALT ->74, ALK Phos -> 106. Will continue IVF and trend LFTs. hepatitis panel negative. Will continue home meds for other chronic medical problems. DVT ppx: SCD Code: full <Gerri Escobar - Last Filed: 09/06/23 08:15> Pt seen and examined. I agree with the note by the ASSOCIATE PROFESSOR OF VIOLIN. Pt is a feeling better. Sodium is improving. Will continue rocephin for UTI <Wilver Nam - Last Filed: 09/06/23 10:32>
[2023-09-06] MEDS ORDERED: THIAMINE HCL 100 MG TABLET PO SCH (09:00)
[2023-09-06] MEDS: THIAMINE HCL 100 MG TABLET PO SCH (09:01)
[2023-09-06 12:27] LABS: Phosphorus 2.6 mg/dL (2.5-4.9)
--- NOTE | 2023-09-07 03:36 | PN ---
Date of Progress Note: 09/06/2023 Chief Complaint: Acute kidney injury, hyponatremia. Subjective: The patient is admitted to the hospital because of generalized weakness, he was found to have volume depletion and electrolyte abnormalities. He was treated for severe hyperkalemia and hyp onatremia. The patient is an 83-year-old man with past medical history of chronic kidney disease sta ge 3, bladder cancer, hypertension, prostate cancer, and history of right kidney mass. The patient w as recently visiting [place] and when he returned home, he became very weak and complained of dizzines s and was unable to continue ambulation in the emergency room. Sodium level was 123, potassium 6.9, chloride 102, carbon dioxide 16, creatinine 2.24 and BUN 149. The patient has multiple medical probl ems including history of bladder cancer and he was seen by [facility]. Varicose vein, hypertens ion, depression, anxiety, nicotine dependence, possible kidney cancer, necrotic mass in the right kid jordyn, history of COVID infection, pneumonia, bilateral cataract surgery, and history of bladder recons truction and bladder surgery. Vascular surgery related to left calf. Review of Systems: Denies complaints. Denies chest pain, palpitations, syncope. Physical Examination: Lungs: Diminished breath sounds at bases. Heart: S1, S2. Abdomen: Soft. Extremities: Slight edema. Impression And Plan: 1.Acute on chronic kidney injury. Renal ultrasound did not show hydronephrosis. Bladder scan will be checked to rule out increased postvoid residual volume. The patient has history of prostate cance r, recommend to consult Urology. Radiology imaging revealed a kidney mass, possible cancer and patie nt needs further workup with Urology. Plan is to adjust IV fluids for adequate hydration as well as to treat hyponatremia. BUN and creatinine ratio is elevated and potassium was elevated, the patient received treatment for hyperkalemia. Potassium level improved. Patient had Lokelma to treat potassi um level 6.9. Subsequently, potassium level improved and is stable. 2.Acute kidney injury due to volume depletion. Continue IV fluids. 3.Hyponatremia, likely multifactorial and plan is to re-evaluate TSH, cortisol level. Check urine o smolality, urinalysis, and urine electrolytes. The patient has history of kidney cancer, prostate ca ncer, and bladder cancer. He needs to see oncologist and urologist as well. EB/MODL Voice ID: [id number] Report ID: [id number]
[2023-09-07 03:53] LABS: Hematocrit 34.3 % (39.6-49.0); Lymphocytes % 16.6 % (15.3-44.8); MCV 88.5 fL (80-100); MPV 7.5 fL (7.6-11.3); Platelets 140 thou/uL (152-406); RBC Red Blood Cell Count 3.88 M/uL (4.33-5.43)
[2023-09-07 03:59] LABS: Albumin 2.3 g/dL (3.4-5.0); Bilirubin Total 0.7 mg/dL (0.2-1.0); Potassium 4.2 mEq/L (3.5-5.1); Protein, Total 5.4 g/dL (6.4-8.2)
[2023-09-07 09:01] VITALS: O2SAT 92
--- NOTE | 2023-09-07 11:04 | EKG ---
Test Date: 2023-09-04 Test Time: 10:50:11 Powder Blender: BECKI MEASUREMENT RESULTS: Intervals: Rate: 51 NH: 222 QRSD: 90 QT: 394 QTc: 363 Prosper: P: 64 NH: 222 QRS: 3 T: 45 INTERPRETIVE STATEMENTS: Sinus bradycardia with 1st degree AV block Nonspecific ST abnormality Abnormal ECG Compared to ECG 02/16/2023 12:13:43 First degree AV block now present Atrial fibrillation no longer present ST (T wave) deviation still present Electronically Signed On 09-07-23 10:59:29 PROVIDER NETWORK MANAGER by Corby Montiel
[2023-09-07 14:46] VITALS: BP 98/46; TEMP 98.3
--- NOTE | 2023-09-08 03:21 | PN ---
Date of Progress Note: 09/07/2023 Chief Complaint: Acute kidney injury with hyponatremia. Subjective: Patient is admitted to the hospital because of generalized weakness. He was found to clarke ve volume depletion, electrolyte abnormalities, acute kidney injury and he was treated with IV fluids . Primarily, he was found to have severe hyperkalemia and received treatment. He did not require di alysis. Patient was treated with IV fluids for hyponatremia and fluid were adjusted to control hypon atremia and gradually obtain correction. The patient denies complaints. During this admission, amy ent received IV fluids and prior to that, he was seen by oncologist for bladder cancer and prostate c carmen. He also has history of prior kidney mass. I reviewed with the patient's son today findings a nd he is to follow up with oncologist as soon as possible. Review of Systems: Denies chest pain, palpitation. Physical Examination: Lungs: Clear to auscultation bilaterally. Heart: S1-S2. Abdomen: Soft. Extremities: Minimal ed yannick. Impression And Plan: Acute on chronic kidney injury. Patient has chronic kidney disease stage 3. H e developed acute kidney injury, which is nonoliguric and renal ultrasound did not show hydronephrosi s. The bladder scan was checked to rule out increased postvoid residual volume. Patient will contin ue with Urology and [facility]. 1.Hyponatremia. Patient is on IV fluids, currently on normal saline. Continue current treatment. 2.Acute kidney injury. Volume depletion. Patient received hydration. Adjust fluids to control hyp onatremia. 3.Hyponatremia. TSH and cortisol level were checked. 4.Patient has history of kidney cancer, prostate cancer, and bladder cancer. The patient will follo w up with oncologist and urologist. EB/MODL Voice ID: [id number] Report ID: [id number]
== END 2023-09-07 16:45 | disposition home health service (06) | DRG 682 ==
LOC: ER 10:24 → 2ND 19:21
PROVIDERS: ADMIT Hospitalist; ATTEND Hospitalist
DX: N17.9 Acute kidney failure, unspecified (principal); I21.4 Non-ST elevation (NSTEMI) myocardial infarction; N39.0 Urinary tract infection, site not specified; E87.1 Hypo-osmolality and hyponatremia; E86.9 Volume depletion, unspecified; E86.0 Dehydration; I12.9 Hypertensive chronic kidney disease with stage 1 through stage 4 chronic kidney disease, or unspecified chronic kidney disease; N18.30 Chronic kidney disease, stage 3 unspecified; E87.5 Hyperkalemia; E87.6 Hypokalemia; N28.89 Other specified disorders of kidney and ureter; R33.9 Retention of urine, unspecified; R74.01 Elevation of levels of liver transaminase levels; Z11.52 Encounter for screening for COVID-19; Z79.82 Long term (current) use of aspirin; Z79.01 Long term (current) use of anticoagulants; Z79.52 Long term (current) use of systemic steroids; Z86.16 Personal history of COVID-19; Z85.46 Personal history of malignant neoplasm of prostate; Z85.51 Personal history of malignant neoplasm of bladder; Z85.528 Personal history of other malignant neoplasm of kidney; Z87.891 Personal history of nicotine dependence; Z79.899 Other long term (current) drug therapy
CPT/HCPCS: 36415; 71045; 74176; 76377; 76770; 80048; 80053; 80074; 80076; 81001; 82306; 82533; 82550; 82570; 82947; 83690; 83735; 83880; 83935; 83970; 84100; 84132; 84156; 84300; 84443; 84484; 84550; 85025; 85610; 86021; 87077; 87086; 87088; 87186; 87804; 87811; 93005; 96361; 96365; 96366; 96375; 97116; 97161; 97530; 99285; J0612; J0696; J1815; J7030; J7120; J7613

== ENCOUNTER 2023-09-26 15:36 | Observation (INO) | payer OTHER ==
[2023-09-26 16:34] LABS: Absolute Lymphocytes (CBC) 1.2 K/uL (0.7-4.9); Basophils % 0.7 % (0-1.3); Hematocrit 37.6 % (39.6-49.0); Lymphocytes % 28.5 % (15.3-44.8); MCV 90.5 fL (80-100); MPV 7.2 fL (7.6-11.3); Platelets 165 thou/uL (152-406); RBC Red Blood Cell Count 4.15 M/uL (4.33-5.43)
[2023-09-26 16:48] LABS: Protime INR 1.35
[2023-09-26 16:57] LABS: Albumin 3.2 g/dL (3.4-5.0); Albumin/Globulin Ratio 0.9 (1.1-1.8); Anion Gap 9.2 mEq/L (5.0-15.0); Bilirubin Direct 0.3 mg/dL (0-0.2); Bilirubin Indirect, Calculated 0.3 mg/dL (0.2-0.8); Bilirubin Total 0.6 mg/dL (0.2-1.0); Globulin 3.6 g/dL (2.3-3.5); Magnesium 1.9 mg/dL (1.6-2.4); Potassium 4.2 mEq/L (3.5-5.1); Protein, Total 6.8 g/dL (6.4-8.2)
--- NOTE | 2023-09-26 17:09 | RAD REPORT ---
EXAM DESCRIPTION: CT - Head C Spine Cap Wo Con - 09/26/2023 4:51 pm CLINICAL HISTORY: Trauma, head and neck injury. Chest, abdomen and pelvis pain. Headache;Pain COMPARISON: Head Brain Wo Cont dated 08/15/2020; Abdomen Pelvis W Contrast dated 02/16/2023; Stone P rotocol dated 09/04/2023 TECHNIQUE: CT head without contrast. CT cervical spine without contrast with coronal and sagittal reformatted images. CT chest, abdomen and pelvis without contrast with coronal and sagittal reformatted images of the [facility]. All CT scans are performed using dose optimization technique as appropriate and may include automated exposure control or mA/KV adjustment according to patient size. FINDINGS: CT HEAD WITHOUT CONTRAST: No intracranial hemorrhage, hydrocephalus or extra-axial fluid collection. No areas of brain edema o r midline shift. Cerebral atrophy. Similar prominence of the extra-axial spaces bilaterally compared with 08/15/2020. This may be due to subdural hygromas or effusions . Mild chronic small vessel ischem ic changes. The paranasal sinuses and mastoids are clear. The calvarium is intact. CT CERVICAL SPINE WITHOUT CONTRAST: No fracture or subluxation. The prevertebral soft tissues are normal in thickness.Multilevel degener ative changes are present in the spine. CT CHEST, ABDOMEN, PELVIS WITHOUT CONTRAST: NOTE: Lack of contrast is a significant limitation in the assessment of trauma related findings. Spec ifically, solid organ, vascular and bowel evaluation is significantly limited. The lungs are clear.No pneumothorax or pericardial/pleural fluid. Emphysema. 2.3 cm right lower lobe lesion has mildly increased in size since 02/16/2023, previously 1.9 cm. Multi-vessel coronary artery disease. Trace pericardial effusion . No evidence of intra-abdominal visceral injury, free fluid or free air is seen within the above detai led limitations. Approximately 7.4 cm right renal mass is not significantly changed in size and likel y reflecting a renal cell carcinoma. Atrophic pancreas. Bilateral nephrolithiasis versus renal vascul ar calcifications. Atherosclerosis. Prostatectomy. Decompressed bladder with irregular configuration is unchanged. Retroperitoneal lymph node dissection . . No concerning pelvic findings. No fractures. Bridging osteophytes in the spine. IMPRESSION: Negative for acute traumatic findings within the above detailed limitations. Right renal mass likely reflecting renal cell carcinoma . Suspicious right lower lobe pulmonary nodul e marginally increased in size compared with 02/16/2023 .
--- NOTE | 2023-09-26 17:10 | RAD REPORT ---
EXAM DESCRIPTION: RAD - Chest Single View - 09/26/2023 5:02 pm CLINICAL HISTORY: COUGH COMPARISON: <Comparisons> FINDINGS: Lines: None. Lungs: No evidence of edema or pneumonia. Suspicious right lower lobe pulmonary nodule better demonst rated on CT . Pleural: No significant pleural effusions or pneumothorax. Cardiac: Mild cardiomegaly. Mediastinum: Within normal limits. Bones: No acute fractures. Other: None IMPRESSION: No acute cardiopulmonary disease.
[2023-09-26] MEDS ORDERED: ONDANSETRON 4 MG/2 ML VIAL ONE (17:19)
[2023-09-26] MEDS ORDERED: NA CHLORIDE 0.9% 1,000 ML ONE (17:20)
[2023-09-26] MEDS ORDERED: MORPHINE 4 MG/ML SYR ONE (17:20)
[2023-09-26] MEDS ORDERED: ACETAMINOPHEN 325 MG TABLET ONE (17:20)
--- NOTE | 2023-09-26 17:54 | EDPHYS ---
Physician Documentation [facility] Name: Lisandro Livingston Age: 83 yrs Sex: Male : 1940 Arrival Date: 09/26/2023 Time: 15:36 Bed 4 Private MD: RUBIN Physician Candido Cook HPI: 09/25 16:03 This 83 yrs old Male presents to ER via Unassigned with complaints of headache mahesh and upper neck pain. 16:03 The patient complains of pain to the left side of the back of head, left occipital mahesh area, left base of the skull, right side of the back of head, right occipital area and right base of the skull. The patient describes the headache as aching. The patient presents with pain that is acute, with no known mechanism of injury. The symptoms are located in the posterior cervical area, left trapezius, right trapezius, left scapular area and right scapular area. The pain does not radiate. Associated signs and symptoms: The patient has no apparent associated signs or symptoms. The problem was sustained from unknown cause. Modifying factors: The patient symptoms are alleviated by nothing, the patient symptoms are aggravated by nothing. Severity of symptoms: At their worst the symptoms were mild, in the emergency department the symptoms are unchanged. Associated signs and symptoms: The patient has no apparent associated signs or symptoms. Severity of symptoms: At its worst the pain was moderate, in the emergency department the pain is unchanged. Headache History: The patient has had previous headaches and this one is similar to previous episodes. The symptoms are alleviated by nothing. the symptoms are aggravated by nothing. The patient has experienced similar episodes in the past, a few times. Historical: - Allergies: 16:27 NKDA; ph - PMHx: 16:27 Bladder cancer; Cancer; COVID; kidney CA; Hypertension; PROSTATE CA; ph - PSHx: 16:27 Bladder Reconstruction; Cholecystectomy; ph - Immunization history:: Adult Immunizations unknown. - Social history:: Smoking status: unknown. - Family history:: not pertinent. ROS: 16:03 Constitutional: Negative for fever, chills, and weight loss, Eyes: Negative for injury, mahesh pain, redness, and discharge, ENT: Negative for injury, pain, and discharge, Neck: Negative for injury, pain, and swelling, Cardiovascular: Negative for chest pain, palpitations, and edema, Respiratory: Negative for shortness of breath, cough, wheezing, and pleuritic chest pain, Abdomen/GI: Negative for abdominal pain, nausea, vomiting, diarrhea, and constipation, : Negative for injury, bleeding, discharge, and swelling, MS/Extremity: Negative for injury and deformity, Skin: Negative for injury, rash, and discoloration, Psych: Negative for depression, anxiety, suicide ideation, homicidal ideation, and hallucinations, Allergy/Immunology: Negative for hives, rash, and allergies, Endocrine: Negative for neck swelling, polydipsia, polyuria, polyphagia, and marked weight changes, Hematologic/Lymphatic: Negative for swollen nodes, abnormal bleeding, and unusual bruising, 16:03 Back: Positive for pain at rest, 16:03 Neuro: Positive for headache, Exam: 16:03 Constitutional: This is a well developed, well nourished patient who is awake, alert, mahesh and in no acute distress. Head/Face: Normocephalic, atraumatic. Eyes: Pupils equal round and reactive to light, extra-ocular motions intact. Lids and lashes normal. Conjunctiva and sclera are non-icteric and not injected. Cornea within normal limits. Periorbital areas with no swelling, redness, or edema. ENT: Nares patent. No nasal discharge, no septal abnormalities noted. Tympanic membranes are normal and external auditory canals are clear. Oropharynx with no redness, swelling, or masses, exudates, or evidence of obstruction, uvula midline. Mucous membranes moist. Neck: Trachea midline, no thyromegaly or masses palpated, and no cervical lymphadenopathy. Supple, full range of motion without nuchal rigidity, or vertebral point tenderness. No Meningismus. Chest/axilla: Normal chest wall appearance and motion. Nontender with no deformity. No lesions are appreciated. Cardiovascular: Regular rate and rhythm with a normal S1 and S2. No gallops, murmurs, or rubs. Normal PMI, no JVD. No pulse deficits. Respiratory: Lungs have equal breath sounds bilaterally, clear to auscultation and percussion. No rales, rhonchi or wheezes noted. No increased work of breathing, no retractions or nasal flaring. Abdomen/GI: Soft, non-tender, with normal bowel sounds. No distension or tympany. No guarding or rebound. No evidence of tenderness throughout. Back: No spinal tenderness. No costovertebral tenderness. Full range of motion. Male : Normal genitalia with no discharge or lesions. Skin: Warm, dry with normal turgor. Normal color with no rashes, no lesions, and no evidence of cellulitis. MS/ Extremity: Pulses equal, no cyanosis. Neurovascular intact. Full, normal range of motion. Neuro: Awake and alert, GCS 15, oriented to person, place, time, and situation. Cranial nerves II-XII grossly intact. Motor strength 5/5 in all extremities. Sensory grossly intact. Cerebellar exam normal. Normal gait. Psych: Awake, alert, with orientation to person, place and time. Behavior, mood, and affect are within normal limits. 17:55 ECG was reviewed by the Attending Physician. [facility] 17:56 ECG was reviewed by the Attending Physician. [facility] Vital Signs: 15:38 BP 133 / 56; Pulse 56; Resp 18; Temp 97.8; Pulse Ox 99% on R/A; Weight 72.57 kg; ph 17:47 BP 125 / 59; Pulse 54; Resp 18; Pulse Ox 98% on R/A; ph 18:42 BP 106 / 54; Pulse 49; Resp 18; Pulse Ox 98% on R/A; ph 19:00 BP 99 / 51; Pulse 47; Resp 16; Pulse Ox 95% on R/A; km8 19:30 BP 96 / 51; Pulse 46; Resp 16; Pulse Ox 99% on R/A; km8 20:00 BP 100 / 50; Pulse 45; Resp 14; Pulse Ox 98% on R/A; km8 21:30 BP 107 / 60; Pulse 77; Resp 16; Pulse Ox 95% on R/A; km8 Section Coma Score: 16:07 Eye Response: spontaneous(4). Motor Response: obeys commands(6). Verbal Response: mahesh oriented(5). Total: 15. MDM: 15:46 Patient medically screened. mahesh 16:07 Differential diagnosis: arthritis, Cholelithiasis chronic back pain, Fatigue mahesh Hydronephrosis Neoplasm Obesity Peptic Ulcer Pyelonephritis Renal Infarction ruptured disc, Scoliosis sprain, Ureterolithiasis hypertensive headache, hyponatremia, migraine, neoplasm, subarachnoid bleed, subdural hematoma, temporal arteritis, tension headache, traumatic injuries, uremia. Data reviewed: vital signs, nurses notes, lab test result(s), EKG, radiologic studies, CT scan, plain films. Consideration of Admission/Observation Patient was admitted/placed on observation. Escalation of care including admission/observation considered. I considered the following discharge prescriptions or medication management in the emergency department Medications were administered in the Emergency Department. See MAR. Test considered but Not performed: Ultrasound no 2 d echo. Historians other than the Patient: Family Member: and son. Care significantly affected by the following chronic conditions: Diabetes, Hypertension, Cancer, Chronic Kidney Disease. 09/25 16:02 Order name: Basic Metabolic Panel; Complete Time: 17:15 [facility] 09/25 16:02 Order name: CBC with Diff; Complete Time: 17:15 [facility] 09/25 16:02 Order name: LFT's; Complete Time: 17:15 [facility] 09/25 16:02 Order name: Magnesium; Complete Time: 17:15 [facility] 09/25 16:02 Order name: NT PRO-BNP; Complete Time: 17:15 [facility] 09/25 16:02 Order name: PT-INR; Complete Time: 17:15 [facility] 09/25 16:02 Order name: Troponin HS; Complete Time: 17:15 [facility] 09/25 16:02 Order name: Lipase; Complete Time: 17:15 [facility] 09/25 16:02 Order name: Urinalysis w/ reflexes 09/25 16:02 Order name: XRAY Chest (1 view); Complete Time: 17:15 [facility] 09/25 16:02 Order name: CT Traumagram (Head C Spine CAP wo con); Complete Time: 17:15 09/25 16:02 Order name: EKG; Complete Time: 16:02 09/25 16:02 Order name: Cardiac monitoring; Complete Time: 17:45 [facility] 09/25 16:02 Order name: EKG - Nurse/Tech; Complete Time: 17:45 [facility] 09/25 16:02 Order name: IV Saline Lock; Complete Time: 16:31 [facility] 09/25 16:02 Order name: Labs collected and sent; Complete Time: 16:31 mahesh 09/25 16:02 Order name: O2 Per Protocol; Complete Time: 16:31 09/25 16:02 Order name: O2 Sat Monitoring; Complete Time: 16:31 [facility] EC:55 Rate is 49 beats/min. Rhythm is regular. QRS [place] is Normal. MN interval is normal. QRS mahesh interval is normal. QT interval is normal. No Q waves. T waves are Normal. No ST changes noted. Clinical impression: Abnormal EKG without significant change and 1st degree heart block. Interpreted by me. Reviewed by me. 17:56 Rate is 49 beats/min. Rhythm is regular. QRS [place] is Normal. MN interval is prolonged mahesh at 240 msec. QRS interval is normal. QT interval is normal. No Q waves. T waves are Normal. No ST changes noted. Clinical impression: Abnormal EKG without significant change, 1st degree heart block, and Sinus bradycardia. Administered Medications: 17:44 Drug: NS 0.9% IV 250 ml IV at bolus once Route: IV; Rate: bolus; Site: right ph antecubital; 21:42 Follow up: Response: No adverse reaction; IV Status: Completed infusion; IV Intake: km8 250ml 17:45 Drug: morphine IVP or IV 2 mg IVP once over 4 mins Route: IVP; Infused Over: 4 mins; ph Site: right antecubital; 21:42 Follow up: Response: No adverse reaction [facility] 17:45 Drug: Ondansetron IVP 4 mg IVP once; over 2 minutes Route: IVP; Site: right antecubital;ph 21:41 Follow up: Response: No adverse reaction [facility] 17:45 Drug: Acetaminophen PO 650 mg PO once Route: PO; ph 21:41 Follow up: Response: No adverse reaction [facility] 18:00 Drug: Aspirin PO Chewable Tablet 81 mg PO once Route: PO; ph 21:41 Follow up: Response: No adverse reaction [facility] 19:04 Drug: NS 0.9% IV 1000 ml IV at 100 ml/hr continuous Route: IV; Rate: 100 ml/hr; Site: ph right antecubital; 21:42 Follow up: IV Status: Infusion continued upon admission km8 Disposition Summary: 09/26/23 17:54 Hospitalization Ordered Notes: Hospitalization Status: Observation mahesh Provider: Walter Huerta cha Location: Telemetry/MedSurg (observation) mahesh Condition: Fair mahesh Problem: new mahesh Symptoms: have improved mahesh Bed/Room Type: Standard [facility] Room Assignment: [id number](09/26/23 21:28) kl Diagnosis - Abnormal levels of other serum enzymes - ELEVATED TROPONIN mahesh - Headache mahesh - Unspecified kidney failure mahesh - Malignant neoplasm of unspecified kidney, except renal pelvis mahesh - Bradycardia, unspecified mahesh - penitentiary (current) use of anticoagulants mahesh Forms: - Medication Reconciliation Form mhaesh - SBAR form mahesh - Leadership Thank You Letter mahesh Signatures: Dispatcher [employer] Corina Muir RN RN kl Anderson, Corey, MD MD cha Hall, Patricia, RN RN Christian, Mary SALMERON km8 Corrections: (The following items were deleted from the chart) 21:28 17:54 mahesh perea
--- NOTE | 2023-09-26 17:54 | ER ---
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 Coronavirus screen: Vaccine status: Patient reports receiving the 2nd dose of the covid vaccine. Ebola Screen: No symptoms or risks identified at this time. Initial Sepsis Screen: Does the patient meet any 2 criteria? No. Patient's initial sepsis screen is negative. Does the patient have a suspected source of infection? No. Patient's initial sepsis screen is negative. Risk Assessment: Do you want to hurt yourself or someone else? Patient reports no desire to harm self or others. Onset of symptoms was September 26, 2023. 15:38 Method Of Arrival: EMS: [facility] ph 15:38 Acuity: JUDIT 3 ph Triage Assessment: 15:45 General: Appears in no apparent distress. comfortable, Behavior is calm, cooperative, ph quiet. Pain: Complains of pain in base of the skull. Pain: Complains of pain in right posterior aspect of neck and left posterior aspect of neck. Neuro: Level of Consciousness is awake, alert, obeys commands, Oriented to person, place, time, situation. Cardiovascular: Capillary refill < 3 seconds in bilateral fingers Patient's skin is warm and dry. Respiratory: Airway is patent Respiratory effort is even, unlabored, Respiratory pattern is regular, symmetrical. Derm: Skin is dry, Skin is normal. Musculoskeletal: Circulation, motion, and sensation intact. Range of motion: intact in all extremities. Historical: - Allergies: 16:27 NKDA; ph - PMHx: 16:27 Bladder cancer; Cancer; COVID; kidney CA; Hypertension; PROSTATE CA; ph - PSHx: 16:27 Bladder Reconstruction; Cholecystectomy; ph - Immunization history:: Adult Immunizations unknown. - Social history:: Smoking status: unknown. - Family history:: not pertinent. Screenin:29 [facility] ED Fall Risk Assessment (Adult) History of falling in the last 3 months, ph including since admission No falls in past 3 months (0 pts) Confusion or Disorientation No (0 pts) Intoxicated or Sedated No (0 pts) Impaired Gait No (0 pts) Mobility Assist Device Used Yes (1 pt) Altered Elimination Yes (1 pt) Score/Fall Risk Level 0 - 2 = Low Risk Oriented to surroundings, Maintained a safe environment, Provided non-skid footwear, Hourly rounding (assess needs \T\ fall precautionary measures) done. Abuse screen: Denies threats or abuse. Denies injuries from another. Nutritional screening: No deficits noted. Tuberculosis screening: No symptoms or risk factors identified. Assessment: 16:29 General: Appears in no apparent distress. comfortable, Behavior is calm, cooperative. ph Neuro: Reports headache Denies blurred vision dizziness, photophobia. Cardiovascular: Capillary refill < 3 seconds in bilateral fingers. GI: Patient currently denies nausea, vomiting. Derm: Skin is dry. 17:46 Reassessment: Patient appears in no apparent distress at this time. Patient and/or ph family updated on plan of care and expected duration. Pain level reassessed. Patient is alert, oriented x 3, equal unlabored respirations, skin warm/dry/pink. Pt resting comfortably, denies chest pain at this time. 19:00 Reassessment: Patient appears in no apparent distress at this time. Patient and/or km8 family updated on plan of care and expected duration. Pain level reassessed. Patient is alert, oriented x 3, equal unlabored respirations, skin warm/dry/pink. General: Appears in no apparent distress. comfortable, Behavior is calm, cooperative. Neuro: Level of Consciousness is awake, alert. Cardiovascular: Denies chest pain, Patient's skin is warm and dry. Rhythm is sinus bradycardia. Respiratory: Airway is patent Respiratory effort is even, unlabored, Respiratory pattern is regular, symmetrical. 20:00 Reassessment: Patient appears in no apparent distress at this time. No changes from km8 previously documented assessment. Patient and/or family updated on plan of care and expected duration. Pain level reassessed. Patient is alert, oriented x 3, equal unlabored respirations, skin warm/dry/pink. 21:37 Reassessment: report attempted. tm6 Vital Signs: 15:38 BP 133 / 56; Pulse 56; Resp 18; Temp 97.8; Pulse Ox 99% on R/A; Weight 72.57 kg; ph 17:47 BP 125 / 59; Pulse 54; Resp 18; Pulse Ox 98% on R/A; ph 18:42 BP 106 / 54; Pulse 49; Resp 18; Pulse Ox 98% on R/A; ph 19:00 BP 99 / 51; Pulse 47; Resp 16; Pulse Ox 95% on R/A; km8 19:30 BP 96 / 51; Pulse 46; Resp 16; Pulse Ox 99% on R/A; km8 20:00 BP 100 / 50; Pulse 45; Resp 14; Pulse Ox 98% on R/A; km8 21:30 BP 107 / 60; Pulse 77; Resp 16; Pulse Ox 95% on R/A; km8 Shaye Coma Score: 16:07 Eye Response: spontaneous(4). Motor Response: obeys commands(6). Verbal Response: mahesh oriented(5). Total: 15. ED Course: 15:38 Patient arrived in ED. eb 15:46 Candido Cook MD is Attending Physician. mahesh 16:02 Kiesha Quintero, RN is Primary Nurse. ph 16:27 Triage completed. ph 16:29 Arm band placed on right wrist. ph 16:30 Patient has correct armband on for positive identification. Bed in low position. Call ph light in reach. Client placed on continuous cardiac and pulse oximetry monitoring. NIBP monitoring applied. Door closed. Noise minimized. Warm blanket given. Pillow given. 16:30 Initial lab(s) drawn, by pr, sent to lab. Inserted saline lock: 22 gauge in right ph antecubital area, using aseptic technique. Blood collected. 16:[address] via stretcher. hb 16:52 CT Traumagram (Head C Spine CAP wo con) In Process Unspecified. EDMS 17:04 XRAY Chest (1 view) In Process Unspecified. EDMS 17:27 Basil Riojas is Hospitalizing Provider. mahesh 17:28 EKG done, by ED staff, reviewed by Candido Cook MD. hb 17:54 Walter Huerta MD is Hospitalizing Provider. mahesh 18:43 No provider procedures requiring assistance completed. Patient admitted, IV remains in ph place. 21:41 Provided Education on: admission process. km8 Administered Medications: 17:44 Drug: NS 0.9% IV 250 ml IV at bolus once Route: IV; Rate: bolus; Site: right ph antecubital; 21:42 Follow up: Response: No adverse reaction; IV Status: Completed infusion; IV Intake: km8 250ml 17:45 Drug: morphine IVP or IV 2 mg IVP once over 4 mins Route: IVP; Infused Over: 4 mins; ph Site: right antecubital; 21:42 Follow up: Response: No adverse reaction km8 17:45 Drug: Ondansetron IVP 4 mg IVP once; over 2 minutes Route: IVP; Site: right antecubital;ph 21:41 Follow up: Response: No adverse reaction km8 17:45 Drug: Acetaminophen PO 650 mg PO once Route: PO; ph 21:41 Follow up: Response: No adverse reaction km8 18:00 Drug: Aspirin PO Chewable Tablet 81 mg PO once Route: PO; ph 21:41 Follow up: Response: No adverse reaction km 19:04 Drug: NS 0.9% IV 1000 ml IV at 100 ml/hr continuous Route: IV; Rate: 100 ml/hr; Site: ph right antecubital; 21:42 Follow up: IV Status: Infusion continued upon admission km8 Medication: 16:30 VIS not applicable for this client. ph Intake: 21:42 IV: 250ml; Total: 250ml. km8 Outcome: 17:54 Decision to Hospitalize by Provider. mahesh 21:55 Admitted to Med/surg accompanied by tech, via stretcher, room 402, with chart, Report km8 called to FAVIOLA Lew 21:55 Condition: stable 21:55 Instructed on the need for admit, Demonstrated understanding of instructions, 22:00 Patient left the ED. km8 Signatures: Dispatcher [employer] EDMS Candido Cook MD MD cha Hall, Patricia RN RN Brittany Monroy RN RN hb Botello, Elizabeth eb Marx, Katie, RN RN km8 Sena Rutherford RN RN tm6 Corrections: (The following items were deleted from the chart) 16:31 15:38 Acuity: JUDIT 4 ph ph
[2023-09-26] MEDS ORDERED: ASPIRIN 81 MG CHEWABLE TABLET ONE (17:55)
--- NOTE | 2023-09-26 20:21 | P.HP ---
Certification for Inpatient Patient admitted to: Observation With expected LOS: <2 Midnights Practitioner: I am a practitioner with admitting privileges, knowledge of patient current condition, hospital course, and medical plan of care. Services: Services provided to patient in accordance with Admission requirements found in Title 42 Section 412.3 of the Code of Federal Regulations Patient History Date of Service: 09/27/23 Reason for admission: Head pain, chest pain. History of Present Illness: 83-year-old male patient with medical history significant for benign prostatic hypertrophy, history of prostate cancer, history of renal cell carcinoma, hypertension and bladder issues he was evaluated for episode of headache and chest discomfort. There was no significant trauma reported. In the ED he had surveillance imaging done from head to toe and there were no acute traumatic finding. There was finding of a right renal mass which has not shown any significant size increase since prior imaging and the right lower lung field opacification. he was also found to have stable labs. He was admitted for ACS workup. Allergies No Known Allergies Allergy (Unverified 05/27/19 08:15) Home Medications: Gabapentin 300 mg PO TID 07/09/20 Aspirin [Aspirin EC 81 MG] 81 mg PO DAILY #30 tab 09/07/23 Atorvastatin Calcium [Lipitor*] 20 mg PO BEDTIME #30 tab 09/07/23 Tamsulosin [Flomax*] 0.8 mg PO BEDTIME #60 cap 09/07/23 Thiamine HCl [Vitamin B-1*] 100 mg PO DAILY #30 tab 09/07/23 Vitamin D [Drisdol*] 50,000 unit PO Q7D@0900 #5 cap 09/07/23 - Past Medical/Surgical History Diabetic: No -: Chronic renal disease -: Bladder Cancer, [facility] Oncology-Dr. Antolin Valera -: Varicose veins -: HTN -: Depression with anxiety -: Nicotine dependence -: Possible kidney cancer necrotic mass in the right kidney -: Siegel virus pneumonia -: Prostate cancer -: Pneumonia -: Ryan Cataracts sx -: Bladder reconstruction -: Bladder surgery -: Vascular surgery and is left calf Psychosocial/ Personal History: . 5 children - Family History Mother -: Lung disease, Diabetes Father -: Hypertension, Lung disease, Diabetes - Social History Alcohol use: No CD- Drugs: No Caffeine use: No Review of Systems General: Malaise Eyes: Unremarkable ENT: Unremarkable Respiratory: Unremarkable Cardiovascular: Unremarkable Gastrointestinal: Unremarkable Genitourinary: Unremarkable Musculoskeletal: Unremarkable Integumentary: Unremarkable Neurological: Unremarkable Lymphatics: Unremarkable Physical Examination - Physical Exam General: Alert HEENT: Atraumatic Neck: Supple Respiratory: Normal air movement Cardiovascular: Regular rate/rhythm, Normal S1 S2 Gastrointestinal: Soft and benign Musculoskeletal: No swelling Neurological: Normal speech - Studies Laboratory Data (last 24 hrs) 09/26/23 09/26/23 09/26/23 16:15 16:15 16:15 WBC 4.30 Hgb 13.1 L Hct 37.6 L Plt Count 165 PT 14.7 H INR 1.35 Sodium 132 L Potassium 4.2 BUN 50 H Creatinine 1.36 H Glucose 107 H Magnesium 1.9 Total Bilirubin 0.6 AST 21 ALT 24 Alkaline Phosphatase 145 H Lipase 15 Assessment and Plan - Plan Chest pain: There is some concern for ACS. Troponin is elevated at 90. Will trend troponin every 4 hours x 3, continue aspirin therapy. We may have cardiology evaluate as needed Headache: No significant finding on imaging. Continue as needed Tylenol for management. Renal cell carcinoma: Imaging study still confirms right renal mass concerning for renal cell carcinoma. Management as per oncology/urology. Hypertension: Monitor vital signs per unit protocol and continue outpatient antihypertensive medications. History of benign prostatic hypertrophy: Continue tamsulosin therapy. Prophylaxis: Lovenox for DVT prophylaxis. CODE STATUS: Full code. Disposition: We will treat his suspected ACS and he will be discharged when deemed clinically stable and cleared by cardiology service. - Advance Directives Does patient have a Living Will: No Does patient have a Durable POA for Healthcare: No
[2023-09-26] MEDS: NA CHLORIDE 0.9% 1,000 ML IV SCH (21:00)
[2023-09-26] MEDS ORDERED: ACETAMINOPHEN 325 MG TABLET PO PRN (21:20)
[2023-09-26 23:05] VITALS: BMI 32.3
[2023-09-26] MEDS ORDERED: ONDANSETRON 4 MG/2 ML VIAL IV PRN (23:20)
[2023-09-27 07:02] LABS: Absolute Lymphocytes (CBC) 1.1 K/uL (0.7-4.9); Basophils % 0.7 % (0-1.3); Eosinophils % 1.2 % (0-4.4); Hematocrit 35.7 % (39.6-49.0); Lymphocytes % 29.1 % (15.3-44.8); MCV 91.1 fL (80-100); MPV 7.2 fL (7.6-11.3); Platelets 126 thou/uL (152-406); RBC Red Blood Cell Count 3.92 M/uL (4.33-5.43)
[2023-09-27 07:16] LABS: Albumin 2.9 g/dL (3.4-5.0); Albumin/Globulin Ratio 0.9 (1.1-1.8); Anion Gap 7.5 mEq/L (5.0-15.0); Bilirubin Total 0.5 mg/dL (0.2-1.0); Globulin 3.1 g/dL (2.3-3.5); Potassium 4.5 mEq/L (3.5-5.1)
[2023-09-27 07:19] LABS: Troponin High Sensitivity 95.7 pg/mL (<58.9)
--- NOTE | 2023-09-27 07:37 | P.PN ---
Subjective Date of Service: 09/27/23 Chief Complaint: Head pain, chest pain. Admitted for headache, chest pain, no cp, or headache on rounds at bedside - Physical Exam General: Alert HEENT: Atraumatic Neck: Supple Respiratory: Normal air movement Cardiovascular: Regular rate/rhythm, Normal S1 S2 Gastrointestinal: Soft and benign Musculoskeletal: No swelling Neurological: Normal speech Review of Systems Per HPI Physical Examination - Vital Signs Temperature: 97.2 F Blood Pressure: 115/53 Pulse: 46 Respirations: 16 Pulse Ox (%): 98 - Studies Laboratory Data (last 24 hrs) 09/26/23 09/26/23 09/26/23 16:15 16:15 16:15 WBC 4.30 Hgb 13.1 L Hct 37.6 L Plt Count 165 PT 14.7 H INR 1.35 Sodium 132 L Potassium 4.2 BUN 50 H Creatinine 1.36 H Glucose 107 H Magnesium 1.9 Total Bilirubin 0.6 AST 21 ALT 24 Alkaline Phosphatase 145 H Lipase 15 Assessment And Plan - Plan Assessment and Plan Chest pain: NSTEMI Elevated troponin There is some concern for ACS. Troponin is elevated at 90. 94, 96 not 95 Will trend troponin every 4 hours x 3, continue aspirin therapy. We may have cardiology evaluate as needed Headache: No significant finding on imaging. Continue as needed Tylenol for management. Renal cell carcinoma: Imaging study still confirms right renal mass concerning for renal cell carcinoma. Management as per oncology/urology. Hypertension: Monitor vital signs per unit protocol and continue outpatient antihypertensive medications. History of benign prostatic hypertrophy: Continue tamsulosin therapy. Prophylaxis: Lovenox for DVT prophylaxis. CODE STATUS: Full code. Disposition: We will treat his suspected ACS and he will be discharged when deemed clinically stable and cleared by cardiology service. Discharge Plan: Home - Code Status/Comfort Care Code Status: Full Code Critical Care: No Time Spent Managing PTS Care (In Minutes): 35
[2023-09-27] MEDS: ENOXAPARIN 30 MG/0.3 ML SQ SCH (08:22)
[2023-09-27] MEDS: ASPIRIN 81 MG CHEWABLE TABLET PO SCH (08:22)
[2023-09-27] MEDS ORDERED: ENOXAPARIN 80 MG/0.8 ML SQ SCH (10:15)
[2023-09-27] MEDS: ENOXAPARIN 40 MG/0.4 ML SQ SCH (10:54)
[2023-09-27] MEDS: GABAPENTIN 300 MG CAP PO SCH (13:20)
--- NOTE | 2023-09-27 13:23 | P.CNS ---
Date of Consult: 09/27/23 Chief Complaint: Head pain, chest pain. History of Present Illness: Patient with no significant PMH, he is very hard of hearing, presented with neck pain and weakness, found to have elevated troponin, denies any other cardiac symptoms. Allergies No Known Allergies Allergy (Unverified 05/27/19 08:15) Home Medications: Gabapentin 300 mg PO TID 07/09/20 Aspirin [Aspirin EC 81 MG] 81 mg PO DAILY #30 tab 09/07/23 Atorvastatin Calcium [Lipitor*] 20 mg PO BEDTIME #30 tab 09/07/23 Tamsulosin [Flomax*] 0.8 mg PO BEDTIME #60 cap 09/07/23 Thiamine HCl [Vitamin B-1*] 100 mg PO DAILY #30 tab 09/07/23 Vitamin D [Drisdol*] 50,000 unit PO Q7D@0900 #5 cap 09/07/23 - Past Medical/Surgical History Diabetic: No -: Chronic renal disease -: Bladder Cancer, [facility] Oncology-Dr. Antolin Valera -: Varicose veins -: HTN -: Depression with anxiety -: Nicotine dependence -: Possible kidney cancer necrotic mass in the right kidney -: Siegel virus pneumonia -: Prostate cancer -: Pneumonia -: Ryan Cataracts sx -: Bladder reconstruction -: Bladder surgery -: Vascular surgery and is left calf Psychosocial/ Personal History: . 5 children - Family History Mother Medical History: Lung disease, Diabetes Father Medical History: Hypertension, Lung disease, Diabetes - Social History Smoking Status: Unknown if ever smoked Alcohol use: No CD- Drugs: No Caffeine use: No Place of Residence: Home Review of Systems 10-point ROS is otherwise unremarkable Physical Examination Temp Pulse Resp BP Pulse Ox 97.2 F 46 L 16 115/53 L 98 09/27/23 12:16 09/27/23 12:16 09/27/23 12:16 09/27/23 12:16 09/27/23 12:16 General: Alert, Oriented x3 HEENT: Atraumatic Neck: Supple Respiratory: Clear to auscultation bilaterally Cardiovascular: No edema, Normal S1 S2 Gastrointestinal: Normal bowel sounds Laboratory Data (last 24 hrs) 09/26/23 09/26/23 09/26/23 16:15 16:15 16:15 WBC 4.30 Hgb 13.1 L Hct 37.6 L Plt Count 165 PT 14.7 H INR 1.35 Sodium 132 L Potassium 4.2 BUN 50 H Creatinine 1.36 H Glucose 107 H Magnesium 1.9 Total Bilirubin 0.6 AST 21 ALT 24 Alkaline Phosphatase 145 H Lipase 15 - Problems (1) Chest pain Current Visit: No Status: Active Plan: patient troponin is mildly elevated with nech pain, NPO after midnight for stress test in am please get echo in am
[2023-09-27] MEDS: ATORVASTATIN 20 MG TAB PO SCH (20:36)
[2023-09-27] MEDS: ENOXAPARIN 80 MG/0.8 ML SQ SCH (20:37)
[2023-09-27] MEDS: TAMSULOSIN 0.4 MG SR CAP PO SCH (20:37)
[2023-09-28 06:49] LABS: Hematocrit 35.3 % (39.6-49.0); MCV 91.1 fL (80-100); MPV 7.2 fL (7.6-11.3); Platelets 140 thou/uL (152-406); RBC Red Blood Cell Count 3.88 M/uL (4.33-5.43)
[2023-09-28 06:50] LABS: Absolute Lymphocytes (CBC) 1.1 K/uL (0.7-4.9); Basophils % 0.5 % (0-1.3); Eosinophils % 0.7 % (0-4.4); Lymphocytes % 28.5 % (15.3-44.8)
[2023-09-28 07:06] LABS: Albumin 2.8 g/dL (3.4-5.0); Albumin/Globulin Ratio 0.9 (1.1-1.8); Anion Gap 7.7 mEq/L (5.0-15.0); Bilirubin Total 0.8 mg/dL (0.2-1.0); Globulin 3.1 g/dL (2.3-3.5); Potassium 4.7 mEq/L (3.5-5.1); Protein, Total 5.9 g/dL (6.4-8.2)
[2023-09-28] MEDS: THIAMINE HCL 100 MG TABLET PO SCH (08:26)
[2023-09-28 09:20] VITALS: O2SAT 100
[2023-09-28] MEDS ORDERED: REGADENOSON 0.4 MG/5 ML SYR IV ONE (09:21)
--- NOTE | 2023-09-28 11:02 | RAD REPORT ---
EXAM DESCRIPTION: NM - Rest Stress Cardiac Imaging - 09/28/2023 10:46 am CLINICAL HISTORY: elevated troponin Chest pain. COMPARISON: REST STRESS CARDIAC dated 12/13/2013 TECHNIQUE: The patient was administered approximately 10mCi of Tc 99m Sestamibi prior to resting SPE CT imaging of the heart. The patient was then administered approximately 30 mCi of Tc 99m Sestamibi f ollowing exercise or pharmacologic stress. Multiplanar SPECT images were reviewed. FINDINGS: No stress induced ischemic defect is seen to suggest stress induced ischemia. No fixed def ect is seen to suggest hibernating myocardium or scarred myocardium. The end diastolic volume is 82 ml, the end systolic volume is 32 ml, and the ejection fraction is 61 %. IMPRESSION: No stress induced ischemia.
--- NOTE | 2023-09-28 12:45 | ECHO ---
HEIGHT: 4 ft 10 in WEIGHT: 155 lb 0 oz DATE OF STUDY: 09/28/[address]: Corby Montiel MD 2-DIMENSIONAL: YES M.MODE: YES DOPPLER: YES COLOR FLOW: YES TDS: NO PORTABLE: YES DEFINITY: NO BUBBLE STUDY: NO DIAGNOSIS: ELEVATED TROPONIN CARDIAC HISTORY: CATHERIZATION: SURGERY: PROSTHETIC VALVE: PACEMAKER: MEASUREMENTS (cm) DIASTOLIC (NORMALS) SYSTOLIC (NORMALS) IVSd 1.3 (0.6-1.2) LA Diam 3.3 (1.9-4.0) LVEF 52% LVIDd 4.2 (3.5-5.7) LVIDs 3.1 (2.0-3.5) %FS 26% LVPWd 1.4 (0.6-1.2) Ao Diam 4.0 (2.0-3.7) 2 DIMENSIONAL ASSESSMENT: RIGHT ATRIUM: NORMAL LEFT ATRIUM: NORMAL RIGHT VENTRICLE: NORMAL LEFT VENTRICLE: NORMAL TRICUSPID VALVE: MILD TRICUSPID REGURGITATION MITRAL VALVE: NORMAL PULMONIC VALVE: NORMAL AORTIC VALVE: MILD AORTIC REGURGITATION PERICARDIAL EFFUSION: NONE AORTIC ROOT: NORMAL LEFT VENTRICULAR WALL MOTION: NORMAL. DOPPLER/COLOR FLOW: GRADE I DIASTOLIC DYSFUNCTION. COMMENTS: NORMAL LEFT VENTRICULAR SYSTOLIC FUNCTION, EJECTION FRACTION 55-60%, NORMAL WALL MOTION. GRADE I DIASTOLIC DYSFUNCTION. MILD AORTIC VALVE REGURGITATION. MILD TRICUSPID REGURGITATION, RIGHT VENTRICULAR SYSTOLIC PRESSURE 25-30mmHg. TECHNOLOGIST: VIKTOR CARMONA
--- NOTE | 2023-09-28 12:58 | TREADPHA ---
DX: CHEST PAIN Date of Study: 09/28/23 Ht: 4' 10 " Wt: 155 lb 0 oz Consulting Physician: REAL MEDICATIONS: LOVENOX, NEURONTIN, LIPITOR, ASPIRIN. HISTORY: PHYSICIAL EXAMINATION: RESTING B.P.: 89/45 RESTING H.R.: 53 RESTING EKG: NORMAL SINUS RHYTHM PROTOCOL: LEXISCAN EXERCISE TIME: 3:30 B.P. AT PEAK STRESS: 93/48 IMPRESSION: LEXISCAN INJECTED. CARDIOLITE INJECTED - SEE NUCLEAR MEDICINE REPORT. NO CHEST PAIN. NO ARRHYTHMIA. NO VENTRICULAR TACHYCARDIA OR SUPRA VENTRICULAR TACHYCARDIA.
--- NOTE | 2023-09-28 13:55 | P.PN ---
Subjective Date of Service: 09/28/23 Chief Complaint: Head pain, chest pain. Subjective: No new changes Review of Systems 10-point ROS is otherwise unremarkable Physical Examination - Vital Signs Temperature: 97.8 F Blood Pressure: 99/53 Pulse: 54 Respirations: 18 Pulse Ox (%): 100 - Physical Exam General: Alert, Oriented x3 HEENT: Atraumatic Neck: Supple Respiratory: Clear to auscultation bilaterally Cardiovascular: No edema Gastrointestinal: Normal bowel sounds Assessment And Plan - Current Problems (Diagnosis) (1) Chest pain Current Visit: No Status: Active Plan: patient echo and stress test is normal no further work up needed from cardiology stand point patient to follow up with us as outpatient.
[2023-09-28 18:16] VITALS: BP 112/56; TEMP 97.6
== END 2023-09-28 18:51 | disposition home or self-care (01) ==
LOC: ER 15:36 → ERHOLD 20:21 → 4TH 21:37
PROVIDERS: ADMIT Internal Medicine Nephrology; ATTEND Hospitalist
DX: R07.9 Chest pain, unspecified (principal); R51.9 Headache, unspecified; M50.90 Cervical disc disorder, unspecified, unspecified cervical region; R79.89 Other specified abnormal findings of blood chemistry; N40.0 Benign prostatic hyperplasia without lower urinary tract symptoms; Z79.01 Long term (current) use of anticoagulants; Z85.46 Personal history of malignant neoplasm of prostate; Z85.51 Personal history of malignant neoplasm of bladder; Z79.82 Long term (current) use of aspirin
CPT/HCPCS: 96365; 93017; 93306; 85025 ×3; 80048; 36415 ×2; 83735; 85610; 80076; 84484 ×4; 83690; 80053 ×2; 83880; 70450; 71250; 72125; 71045; 78452; 96375; 99285; 96366; J2785; J1650 ×2; J2405; J7030 ×3; A9500; G0378

== ENCOUNTER 2023-12-23 09:16 | Emergency (ER) | payer OTHER ==
[2023-12-23 11:22] LABS: Absolute Basophils 0.1 K/uL (0-0.5); Absolute Eosinophils 0.1 K/uL (0-0.5); Absolute Lymphocytes (CBC) 0.9 K/uL (0.7-4.9); Absolute Monocytes 0.4 K/uL (0.1-1.3); Absolute Neutrophil 3.5 K/uL (1.8-8.0); Basophils % 1.1 % (0-1.3); Eosinophils % 1.2 % (0-4.4); Hematocrit 36.5 % (39.6-49.0); Hemoglobin 12.1 g/dL (13.6-17.9); Lymphocytes % 17.8 % (15.3-44.8); MCH 30.2 pg (27.0-35.0); MCHC 33.2 g/dL (32.0-36.0); MCV 90.9 fL (80-100); MPV 7.7 fL (7.6-11.3); Neutrophils % 70.9 % (41.7-73.7); Platelets 186 thou/uL (152-406); RBC Red Blood Cell Count 4.01 M/uL (4.33-5.43); Red Cell Distribution Width 13.2 % (12.1-15.2)
[2023-12-23 11:45] LABS: Albumin 3.3 g/dL (3.4-5.0); Anion Gap 7.1 mEq/L (5.0-15.0); Bilirubin Total 0.6 mg/dL (0.2-1.0); Globulin 3.3 g/dL (2.3-3.5); Potassium 4.1 mEq/L (3.5-5.1); Protein, Total 6.6 g/dL (6.4-8.2)
[2023-12-23 11:51] LABS: Sqamous Epithelial None Seen /HPF (None Seen); Urine Bacteria <20 /HPF (<20); Urine Culture Reflex Order REFLEXED; Urine Micro Reflex YN NO BILL MICROSCOPIC; Urine Mucus 2+ /HPF (None Seen); Urine RBC >50 /HPF (None Seen); Urine WBC 20-50 /HPF (<5)
--- NOTE | 2023-12-23 12:44 | RAD REPORT ---
EXAM DESCRIPTION: CT - Abdomen Pelvis W Contrast - 12/23/2023 12:14 pm CLINICAL HISTORY: Hematuria; renal mas COMPARISON: Abdomen Pelvis W Contrast dated 02/16/2023; Abdomen Pelvis W Contrast dated 06/25/2020 ; CT ABD PELVIS W CONTRAST dated 12/05/2014; Head C Spine Cap Wo Con dated 09/26/2023; Stone Protocol da thierry 09/04/2023 TECHNIQUE: Thin cut axial CT imaging of the abdomen and pelvis was performed following intravenous a dministration of 100 mL Isovue 300. Multiplanar reformats were generated and reviewed. All CT scans are performed using dose optimization technique as appropriate and may include automated exposure control or mA/KV adjustment according to patient size. FINDINGS: No suspicious findings in the lung bases. The liver, spleen, adrenal glands, and pancreas show no suspicious findings. Gallbladder and biliary tree are also without suspicious finding. Progressive increase in size of the heterogeneously enhancing adrenal mass centered on the right lowe r renal pole, today measuring 8.7 cm in greatest axial diameter, where previously it measures up to 7 .4 cm. The parapelvic interpolar component possibly invading the pelvis has increased in size as well , measuring up to 7 cm in greatest axial diameter. Heterogeneous lobulated growth extending caudally possibly along the pelviureteric junction, abutting the margin of the right psoas muscle, see axial i mage 40/108. There is also tumoral growth along the right renal vein measuring 1.6 cm in thickness, s ee axial image 27. Left kidney again shows punctate calcifications along the renal pelvis which may b e vascular. No dilated bowel loops or bowel wall thickening. No free air, free fluid or inflammatory stranding. N o hernia, mass or bulky lymphadenopathy. Sequelae of cystectomy and neobladder creation again seen. No suspicious bony findings. IMPRESSION: Interval increase in size of the known right renal mass centered on the lower pole, and extending into the pelvis, compatible with renal cell carcinoma. 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 The findings were communicated to Candido Cook on 12/23/2023 at 12:36 hours.
--- NOTE | 2023-12-23 13:31 | EDPHYS ---
Physician Documentation [facility] Name: Lisandro Livingston Age: 83 yrs Sex: Male : 1940 Arrival Date: 12/23/2023 Time: 09:16 Bed 27 Private MD: ED Physician Aristides García HPI: 12/22 13:09 This 83 yrs old Male presents to ER via Wheelchair with complaints of Urinary ms3 Problem. 13:09 83-year-old male with past medical history of kidney cancer, hypertension, prostate ms3 cancer, bladder cancer presents to the emergency department for hematuria for 6 days. Patient denies fevers, nausea, vomiting, diarrhea, pain. Patient denies any alleviating factors.. Historical: - Allergies: 09:48 NKDA; iw - PMHx: 09:48 kidney CA; Hypertension; PROSTATE CA; Bladder cancer; iw - PSHx: 09:48 Bladder Reconstruction; Cholecystectomy; iw - Immunization history:: Adult Immunizations up to date. - Infectious Disease History:: Denies. - Social history:: Smoking status: unknown. ROS: 13:09 Constitutional: Negative for fever, and chills. ENT: Negative for injury, pain, and ms3 discharge, Cardiovascular: Negative for chest pain, and palpitations. Respiratory: Negative for shortness of breath, cough, wheezing, and pleuritic chest pain, Abdomen/GI: Negative for abdominal pain, nausea, vomiting, diarrhea, and constipation, MS/Extremity: Negative for injury and deformity, 13:09 : Positive for hematuria, Exam: 13:09 Constitutional: This is a well developed, well nourished patient who is awake, alert, ms3 and in no acute distress. Head/Face: Normocephalic, atraumatic. Neck: Trachea midline, no cervical lymphadenopathy. Supple, full range of motion without nuchal rigidity, or vertebral point tenderness. No Meningismus. Chest/axilla: Normal chest wall appearance and motion. Nontender with no deformity. Cardiovascular: Regular rate and rhythm with a normal S1 and S2. No gallops, murmurs, or rubs. Normal PMI, no JVD. No pulse deficits. Respiratory: Lungs have equal breath sounds bilaterally, clear to auscultation and percussion. No rales, rhonchi or wheezes noted. No increased work of breathing, no retractions or nasal flaring. Abdomen/GI: Soft, non-tender, with normal bowel sounds. No distension or tympany. No guarding or rebound. No evidence of tenderness throughout. Skin: Warm, dry with normal turgor. Normal color with no rashes, no lesions, and no evidence of cellulitis. Vital Signs: 09:47 BP 112 / 55; Pulse 59; Resp 16; Temp 97.6; Pulse Ox 99% on R/A; iw 13:30 BP 137 / 75; Pulse 54; Resp 18; Pulse Ox 100% on R/A; cm10 14:00 BP 152 / 42; Pulse 46; Resp 18; Pulse Ox 100% on R/A; cm10 14:30 BP 140 / 52; Pulse 51; Resp 18; Pulse Ox 100% on R/A; cm10 15:00 BP 152 / 55; Pulse 53; Resp 18; Pulse Ox 100% on R/A; cm10 15:15 BP 153 / 58; Pulse 54; Resp 18; Pulse Ox 100% on R/A; cm10 16:00 BP 146 / 54; Pulse 53; Resp 18; Pulse Ox 100% on R/A; cm10 MDM: 09:48 Patient medically screened. ms3 13:09 Differential diagnosis: nonspecific abdominal pain, UTI, Neoplasm. ms3 14:49 Data reviewed: vital signs, nurses notes, lab test result(s), radiologic studies, and ms3 as a result, I will transfer patient. Consideration of Admission/Observation Will transfer patient for higher level of care. Management of patient was discussed with the following: Hospitalist: Dr Burkett. I considered the following discharge prescriptions or medication management in the emergency department Medications were administered in the Emergency Department. See MAR. Historians other than the Patient: Daughter/Son: Patient's son. Care significantly affected by the following chronic conditions: Hypertension, Cancer. 12/22 09:49 Order name: CBC with Diff; Complete Time: 13:08 ms3 12/22 09:49 Order name: CMP; Complete Time: 13:08 ms3 12/22 11:24 Order name: Urine Microscopic Only; Complete Time: 13:08 EDMS 12/22 11:54 Order name: Urine Culture EDMS 12/22 09:49 Order name: CT Abd/Pelvis - IV Contrast Only; Complete Time: 13:08 ms3 12/22 09:49 Order name: IV Saline Lock; Complete Time: 11:15 ms3 12/22 09:49 Order name: Labs collected and sent; Complete Time: 11:15 ms3 Administered Medications: 16:16 Not Given (Physician Discretion): ns 0.9% 1000 ml IV at 1 bolus Per protocol; 1000 mL cm10 bolus Disposition Summary: 12/23/23 13:30 Transfer Ordered Notes: Transfer Location: [facility] ms3 Reason: Higher level of care ms3 Condition: Stable ms3 Problem: new ms3 Symptoms: are unchanged ms3 Accepting Physician: Dr Burkett(12/23/23 16:18) cm10 Diagnosis - Renal Cell carcinoma ms3 - Hematuria ms3 Forms: - Medication Reconciliation Form ms3 - SBAR form ms3 Signatures: Dispatcher [employer] EDMeagan Lacy, RN Aristides Andrade, DO ms3 Josselyn Solorzano RN RN cm10 Corrections: (The following items were deleted from the chart) 11:24 09:49 Urinalysis+U.LAB.BRZ ordered. EDMS EDMS 14:48 13:30 TBD ms3 ms3 16:18 14:48 Dr Burkett ms3 cm10
--- NOTE | 2023-12-23 13:31 | ER ---
Nurse's Notes [facility] Name: Lisandro Livingston Age: 83 yrs Sex: Male : 1940 Arrival Date: 12/23/2023 Time: 09:16 Bed 27 Private MD: Diagnosis: Renal Cell carcinoma;Hematuria Presentation: 12/22 09:46 Chief complaint: Patient states: blood in urine since december 16. iw 09:46 Acuity: JUDIT 3 iw 09:46 Method Of Arrival: Wheelchair iw 09:47 Coronavirus screen: At this time, the client does not indicate any symptoms associated iw with coronavirus-19. Ebola Screen: Patient negative for fever greater than or equal to 101.5 degrees Fahrenheit, and additional compatible Ebola Virus Disease symptoms Patient denies exposure to infectious person. Patient denies travel to an Ebola-affected area in the 21 days before illness onset. No symptoms or risks identified at this time. Initial Sepsis Screen: Does the patient meet any 2 criteria? No. Patient's initial sepsis screen is negative. Does the patient have a suspected source of infection? No. Patient's initial sepsis screen is negative. Risk Assessment: Do you want to hurt yourself or someone else? Patient reports no desire to harm self or others. Onset of symptoms was December 17, 2023. Triage Assessment: 13:30 General: Appears in no apparent distress. comfortable, Behavior is calm, cooperative. cm10 Pain: Denies pain. Neuro: No deficits noted. Level of Consciousness is awake, alert, obeys commands, Oriented to person, place, time, situation, Appropriate for age. Respiratory: No deficits noted. Airway is patent Respiratory effort is even, unlabored, Respiratory pattern is regular, symmetrical. : Reports Blood in urine. Derm: No deficits noted. Skin is intact, Skin is pink, warm \T\ dry. Historical: - Allergies: 09:48 NKDA; iw - PMHx: 09:48 kidney CA; Hypertension; PROSTATE CA; Bladder cancer; iw - PSHx: 09:48 Bladder Reconstruction; Cholecystectomy; iw - Immunization history:: Adult Immunizations up to date. - Infectious Disease History:: Denies. - Social history:: Smoking status: unknown. Screenin:05 [facility] ED Fall Risk Assessment (Adult) History of falling in the last 3 months, cm10 including since admission No falls in past 3 months (0 pts) Confusion or Disorientation No (0 pts) Intoxicated or Sedated No (0 pts) Impaired Gait Yes (1 pt) Mobility Assist Device Used Yes (1 pt) Altered Elimination No (0 pt) Score/Fall Risk Level 0 - 2 = Low Risk Oriented to surroundings, Maintained a safe environment, Hourly rounding (assess needs \T\ fall precautionary measures) done. Abuse screen: Denies threats or abuse. Denies injuries from another. Nutritional screening: No deficits noted. Tuberculosis screening: No symptoms or risk factors identified. Assessment: 15:33 Reassessment: Patient appears in no apparent distress at this time. No changes from cm10 previously documented assessment. Patient and/or family updated on plan of care and expected duration. Pain level reassessed. Patient is alert, oriented x 3, equal unlabored respirations, skin warm/dry/pink. Vital Signs: 09:47 BP 112 / 55; Pulse 59; Resp 16; Temp 97.6; Pulse Ox 99% on R/A; iw 13:30 BP 137 / 75; Pulse 54; Resp 18; Pulse Ox 100% on R/A; cm10 14:00 BP 152 / 42; Pulse 46; Resp 18; Pulse Ox 100% on R/A; cm10 14:30 BP 140 / 52; Pulse 51; Resp 18; Pulse Ox 100% on R/A; cm10 15:00 BP 152 / 55; Pulse 53; Resp 18; Pulse Ox 100% on R/A; cm10 15:15 BP 153 / 58; Pulse 54; Resp 18; Pulse Ox 100% on R/A; cm10 16:00 BP 146 / 54; Pulse 53; Resp 18; Pulse Ox 100% on R/A; cm10 ED Course: 09:23 Patient arrived in ED. mr 09:27 Aristides García DO is Attending Physician. ms3 09:46 Triage completed. iw 09:49 Arm band placed on. iw 11:15 Initial lab(s) drawn, by me, sent to lab. Urine collected: clean catch specimen, blood jg11 tinged. Inserted saline lock: 20 gauge in left antecubital area, using aseptic technique. Blood collected. 11:15 CBC with Diff Sent. jg11 11:15 CMP Sent. jg11 12:17 CT Abd/Pelvis - IV Contrast Only In Process Unspecified. EDMS 13:31 Josselyn Solorzano, RN is Primary Nurse. cm10 14:05 Patient has correct armband on for positive identification. Placed in gown. Bed in low cm10 position. Call light in reach. Side rails up X2. Provided Education on: ER process and procedures. Pulse ox on. NIBP on. 15:25 Report called to Yue at [facility]. cm10 16:16 Report given to Jared with [facility] who assumes care of patient. Pt stable for cm10 transport at this time. 16:16 No provider procedures requiring assistance completed. Patient transferred, IV remains cm10 in place. Administered Medications: 16:16 Not Given (Physician Discretion): ns 0.9% 1000 ml IV at 1 bolus Per protocol; 1000 mL cm10 bolus Medication: 14:05 VIS not applicable for this client. cm10 Outcome: 13:30 ER care complete, transfer ordered by . ms3 16:17 Transferred by ground EMS [facility]. to [facility], Transfer cm10 form completed. 16:17 Condition: stable 16:17 Instructed on the need for transfer, 16:18 Patient left the ED. cm10 Signatures: Dispatcher [employer] EDMS Sophie Adam, Reg Reg mr Meagan Kong, RN RN Aristides Ham DO DO ms3 Jossleyn Solorzano, RN RN Jamir Hooker jg11 Corrections: (The following items were deleted from the chart) 11:24 11:15 Urinalysis+U.LAB.BRZ drawn and sent. jg11 EDMS
[2023-12-23 17:30] VITALS: TEMP 97.6; O2SAT 100
[2023-12-23 17:45] VITALS: BP 146/54
== END 2023-12-23 16:18 | disposition short-term general hospital (02) ==
LOC: ER 09:16
DX: C64.9 Malignant neoplasm of unspecified kidney, except renal pelvis (principal)
CPT/HCPCS: 87088; 85025; 87086; 36415; 81015; 80053; 74177; 99285; Q9967; 87077; 87186

== ENCOUNTER 2023-12-31 11:20 | Emergency (ER) | payer OTHER ==
--- NOTE | 2023-12-31 12:24 | RAD REPORT ---
EXAM DESCRIPTION: CT - Stone Protocol - 12/31/2023 11:55 am CLINICAL HISTORY: Abdominal pain. COMPARISON: December 23, 2023 TECHNIQUE: Computed axial tomography of the abdomen pelvis was obtained without oral or IV contrast. Lack of IV and oral contrast limits evaluation of solid organs, appendix, bowel, and vessels. Siegel l reformatted images were obtained and reviewed. All CT scans are performed using dose optimization technique as appropriate and may include automated exposure control or mA/KV adjustment according to patient size. FINDINGS: Large right renal neoplastic mass unchanged. No hydronephrosis. Cystectomy with neobladder. Humphreys catheter in place Liver, spleen, adrenal glands and pancreas grossly normal No evidence of diverticulitis. No bowel obstruction IMPRESSION: Large right renal neoplastic mass unchanged No significant hydronephrosis
--- NOTE | 2023-12-31 12:28 | RAD REPORT ---
EXAM DESCRIPTION: RAD - Shoulder Left 2 View - 12/31/2023 12:15 pm CLINICAL HISTORY: Left shoulder pain FINDINGS: No fracture or dislocation is seen. Mild to moderate narrowing of the AC joint. The humeral head is high riding which may indicate a chronic rotator cuff tear. Mild osteoarthritis glenohumeral joint. Osteoporosis
[2023-12-31] MEDS ORDERED: CEFTRIAXONE 1000 MG/VIAL ONE (12:41)
[2023-12-31] MEDS ORDERED: NA CHLORIDE 0.9% 500 ML ONE (12:41)
[2023-12-31 12:46] LABS: Absolute Lymphocytes (CBC) 0.9 K/uL (0.7-4.9); Absolute Monocytes 0.4 K/uL (0.1-1.3); Absolute Neutrophil 3.3 K/uL (1.8-8.0); Basophils % 0.6 % (0-1.3); Eosinophils % 0.9 % (0-4.4); Hematocrit 34.4 % (39.6-49.0); Hemoglobin 11.5 g/dL (13.6-17.9); Lymphocytes % 19.3 % (15.3-44.8); MCH 29.8 pg (27.0-35.0); MCHC 33.5 g/dL (32.0-36.0); MCV 89.1 fL (80-100); MPV 8.2 fL (7.6-11.3); Monocytes % 8.7 % (3.3-12.3); Neutrophils % 70.5 % (41.7-73.7); Platelets 165 thou/uL (152-406); RBC Red Blood Cell Count 3.86 M/uL (4.33-5.43); Red Cell Distribution Width 13.2 % (12.1-15.2)
[2023-12-31 12:49] LABS: Specific Gravity 1.009 (1.005-1.030); Sqamous Epithelial None Seen /HPF (None Seen); Urine Bacteria None Seen /HPF (<20); Urine Bilirubin NEGATIVE (Negative); Urine Blood 1+ (Negative); Urine Clarity Extremely Turbid (Clear); Urine Color Light-Yellow (Yellow); Urine Culture Reflex Order REFLEXED; Urine Glucose NEGATIVE (Negative); Urine Ketones NEGATIVE (Negative); Urine Microscopic Reflex YN ORDER UMIC; Urine Nitrite NEGATIVE (Negative); Urine Protein TRACE (Negative); Urine RBC <5 /HPF (None Seen); Urine Urobilinogen Normal (Normal); Urine WBC 20-50 /HPF (<5); Urine WBC Clump Rare /HPF (None Seen); Urine pH 6.5 (5.0-7.0)
[2023-12-31 13:04] LABS: Albumin 2.9 g/dL (3.4-5.0); Albumin/Globulin Ratio 0.8 (1.1-1.8); Anion Gap 9.2 mEq/L (5.0-15.0); Bilirubin Total 0.4 mg/dL (0.2-1.0); Globulin 3.5 g/dL (2.3-3.5); Potassium 4.2 mEq/L (3.5-5.1); Protein, Total 6.4 g/dL (6.4-8.2)
--- NOTE | 2023-12-31 13:45 | ER ---
Nurse's Notes [facility] Name: Lisandro Livingston Age: 83 yrs Sex: Male : 1940 Arrival Date: 12/31/2023 Time: 11:20 Bed 19 Private MD: Diagnosis: Malignant neoplasm of unspecified renal pelvis;Leakage of urinary (indwelling) catheter-blocked and replaced;UTI/ Urinary tract infection, site not specified Presentation: 12/30 11:31 Chief complaint: Pt's son states "he got a Chinchilla catheter placed last week and they aa5 want him to keep it in for 2 weeks but last night we noticed it wasn't draining much and this morning he peed around it". 11:31 Coronavirus screen: At this time, the client does not indicate any symptoms associated aa5 with coronavirus-19. Ebola Screen: Patient denies travel to an Ebola-affected area in the 21 days before illness onset. Initial Sepsis Screen: Does the patient meet any 2 criteria? No. Patient's initial sepsis screen is negative. Does the patient have a suspected source of infection? No. Patient's initial sepsis screen is negative. Risk Assessment: Do you want to hurt yourself or someone else? Patient reports no desire to harm self or others. Onset of symptoms was December 31, 2023. 11:31 Method Of Arrival: Wheelchair aa5 11:31 Acuity: JUDIT 3 aa5 Historical: - Allergies: 11: NKDA; aa5 - PMHx: 11:31 Bladder cancer; Cancer; COVID; Hypertension; kidney CA; PROSTATE CA; aa5 - PSHx: :31 Bladder Reconstruction; Cholecystectomy; aa5 - Immunization history:: Adult Immunizations unknown. - Infectious Disease History:: Denies. - Social history:: Smoking status: Patient denies any tobacco usage or history of. Screenin:35 [facility] ED Fall Risk Assessment (Adult) History of falling in the last 3 months, aa5 including since admission No falls in past 3 months (0 pts) Confusion or Disorientation No (0 pts) Intoxicated or Sedated No (0 pts) Impaired Gait No (0 pts) Mobility Assist Device Used No (0 pt) Altered Elimination No (0 pt) Score/Fall Risk Level 0 - 2 = Low Risk Oriented to surroundings, Maintained a safe environment, Educated pt \\T\\ family on fall prevention, incl call for assistance when getting out of bed. Abuse screen: Denies threats or abuse. Nutritional screening: No deficits noted. Tuberculosis screening: No symptoms or risk factors identified. Assessment: 11:31 General: Appears comfortable, Behavior is calm, cooperative. Pain: Denies pain. Neuro: aa5 Level of Consciousness is awake, alert, obeys commands, Oriented to person, place, time, situation. Cardiovascular: Patient's skin is warm and dry. Respiratory: Airway is patent Respiratory effort is even, unlabored, Respiratory pattern is regular, symmetrical. GI: No signs and/or symptoms were reported involving the gastrointestinal system. : Reports Chinchilla catheter not draining properly since last night, 16FR chinchilla catheter with leg bag noted. EENT: Pt is hard of hearing . Derm: Skin is pink, warm \\T\\ dry. Musculoskeletal: Range of motion: intact in all extremities. 12:28 Reassessment: Patient is alert, oriented x 3, equal unlabored respirations, skin aa5 warm/dry/pink. 13:00 Reassessment: Patient is alert, oriented x 3, equal unlabored respirations, skin aa5 warm/dry/pink. Patient denies pain at this time. Vital Signs: 11:31 BP 129 / 57; Pulse 64; Resp 18 S; Temp 97.1(TE); Pulse Ox 100% on R/A; aa5 13:00 BP 121 / 45; Pulse 52; Resp 16 S; Pulse Ox 100% on R/A; aa5 13:30 BP 122 / 53; Pulse 51; Resp 16 S; Pulse Ox 100% on R/A; aa5 ED Course: 11:25 Patient arrived in ED. mg5 11:26 Candido Cook MD is Attending Physician. mahesh 11:31 Arm band placed on Patient placed in an exam room, on a stretcher. aa5 11:31 Patient has correct armband on for positive identification. Bed in low position. Call aa5 light in reach. Side rails up X 1. Adult w/ patient. 11:36 Emily Gunderson, RN is Primary Nurse. aa5 11:39 Triage completed. aa5 11:57 CT Stone Protocol In Process Unspecified. EDMS 12:17 Shoulder Left (2 View) XRAY In Process Unspecified. EDMS 12:28 Chinchilla cath removed intact, balloon deflated, sediment accumulation to tip of catheter. aa5 12:32 Chinchilla cath inserted, using sterile technique, 18 Fr., by me, balloon inflated, to aa5 gravity drainage, returned 1000mls of urine. 12:39 Initial lab(s) drawn, by me, sent to lab. Inserted saline lock: 22 gauge in right aa5 antecubital area, using aseptic technique. Blood collected. 12:40 Urine collected: Chinchilla catheter specimen, cloudy, christopher colored, sediment noted. jg11 13:01 No provider procedures requiring assistance completed. aa5 13:45 Mayank Hernandez MD is Referral Physician. [facility] 14:11 IV discontinued, intact, bleeding controlled, No redness/swelling at site. Pressure ss dressing applied. Administered Medications: 12:45 Drug: NS 0.9% IV 500 ml IV at bolus once Route: IV; Rate: bolus; Site: right aa5 antecubital; 13:30 Follow up: IV Status: Completed infusion; IV Intake: 500ml aa5 12:45 Drug: Rocephin IV 1 grams IV at per protocol once; Given slow IV push per pharmacy aa5 instructions Route: IV; Rate: per protocol; Site: right antecubital; 12:50 Follow up: Response: No adverse reaction; IV Status: Completed infusion aa5 Medication: 12:45 VIS not applicable for this client. aa5 Intake: 13:30 IV: 500ml; Total: 500ml. aa5 Output: 12:40 Urine: 740ml (Chinchilla); Total: 740ml. jg11 Outcome: 13:45 Discharge ordered by . [facility] 14:11 Discharged to home via wheelchair, 14:11 Condition: good 14:11 Discharge instructions given to patient, family, Instructed on discharge instructions, follow up and referral plans. medication usage, Demonstrated understanding of instructions, follow-up care, medications, Prescriptions given X 2, 14:13 Patient left the ED. ss Signatures: Dispatcher [employer] EDHI Candido Cook MD MD cha Calderon, Audri, RN RN aa5 Wendy Fitch RN RN Princess Alex 5 Jamir Singh jg11 Corrections: (The following items were deleted from the chart) 13:01 11:31 EENT: No signs and/or symptoms were reported regarding the EENT system. aa5 aa5
--- NOTE | 2023-12-31 13:45 | EDPHYS ---
Physician Documentation [facility] Name: Lisandro Livingston Age: 83 yrs Sex: Male : 1940 Arrival Date: 12/31/2023 Time: 11:20 Bed 19 Private MD: ED Physician Candido Cook HPI: 12/30 12:38 This 83 yrs old Male presents to ER via Wheelchair with complaints of Urinary mahesh Problem. 12:38 The patient presents with a Chinchilla catheter problem, is not draining. Onset: The mahesh symptoms/episode began/occurred today. Modifying factors: The symptoms are alleviated by nothing, the symptoms are aggravated by nothing. Associated signs and symptoms: Pertinent positives: abdominal pain. Severity of symptoms: At their worst the symptoms were mild, in the emergency department the symptoms are unchanged. The patient has experienced similar episodes in the past, several times. Historical: - Allergies: 11:31 NKDA; aa5 - PMHx: 11:31 Bladder cancer; Cancer; COVID; Hypertension; kidney CA; PROSTATE CA; aa5 - PSHx: 11:31 Bladder Reconstruction; Cholecystectomy; aa5 - Immunization history:: Adult Immunizations unknown. - Infectious Disease History:: Denies. - Social history:: Smoking status: Patient denies any tobacco usage or history of. ROS: 12:40 Constitutional: Negative for fever, chills, and weight loss, Eyes: Negative for injury, mahesh pain, redness, and discharge, ENT: Negative for injury, pain, and discharge, Neck: Negative for injury, pain, and swelling, Cardiovascular: Negative for chest pain, palpitations, and edema, Respiratory: Negative for shortness of breath, cough, wheezing, and pleuritic chest pain, Back: Negative for injury and pain, MS/Extremity: Negative for injury and deformity, Skin: Negative for injury, rash, and discoloration, Neuro: Negative for headache, weakness, numbness, tingling, and seizure, Psych: Negative for depression, anxiety, suicide ideation, homicidal ideation, and hallucinations, Allergy/Immunology: Negative for hives, rash, and allergies, Endocrine: Negative for neck swelling, polydipsia, polyuria, polyphagia, and marked weight changes, Hematologic/Lymphatic: Negative for swollen nodes, abnormal bleeding, and unusual bruising, 12:40 Abdomen/GI: Positive for abdominal pain, abdominal cramps, 12:40 : Positive for difficulty urinating, chinchilla blocked, Exam: 12:40 Constitutional: This is a well developed, well nourished patient who is awake, alert, mahesh and in no acute distress. Head/Face: Normocephalic, atraumatic. Eyes: Pupils equal round and reactive to light, extra-ocular motions intact. Lids and lashes normal. Conjunctiva and sclera are non-icteric and not injected. Cornea within normal limits. Periorbital areas with no swelling, redness, or edema. ENT: Nares patent. No nasal discharge, no septal abnormalities noted. Tympanic membranes are normal and external auditory canals are clear. Oropharynx with no redness, swelling, or masses, exudates, or evidence of obstruction, uvula midline. Mucous membranes moist. Neck: Trachea midline, no thyromegaly or masses palpated, and no cervical lymphadenopathy. Supple, full range of motion without nuchal rigidity, or vertebral point tenderness. No Meningismus. Chest/axilla: Normal chest wall appearance and motion. Nontender with no deformity. No lesions are appreciated. Cardiovascular: Regular rate and rhythm with a normal S1 and S2. No gallops, murmurs, or rubs. Normal PMI, no JVD. No pulse deficits. Respiratory: Lungs have equal breath sounds bilaterally, clear to auscultation and percussion. No rales, rhonchi or wheezes noted. No increased work of breathing, no retractions or nasal flaring. Abdomen/GI: Soft, non-tender, with normal bowel sounds. No distension or tympany. No guarding or rebound. No evidence of tenderness throughout. Back: No spinal tenderness. No costovertebral tenderness. Full range of motion. Skin: Warm, dry with normal turgor. Normal color with no rashes, no lesions, and no evidence of cellulitis. MS/ Extremity: Pulses equal, no cyanosis. Neurovascular intact. Full, normal range of motion. Neuro: Awake and alert, GCS 15, oriented to person, place, time, and situation. Cranial nerves II-XII grossly intact. Motor strength 5/5 in all extremities. Sensory grossly intact. Cerebellar exam normal. Normal gait. Psych: Awake, alert, with orientation to person, place and time. Behavior, mood, and affect are within normal limits. 12:40 : Male external genitalia: normal, Bladder: distension, that is moderate, Sexual behavior: the patient is not sexually active, a chinchilla is noted, blocked, Vital Signs: 11:31 BP 129 / 57; Pulse 64; Resp 18 S; Temp 97.1(TE); Pulse Ox 100% on R/A; aa5 13:00 BP 121 / 45; Pulse 52; Resp 16 S; Pulse Ox 100% on R/A; aa5 13:30 BP 122 / 53; Pulse 51; Resp 16 S; Pulse Ox 100% on R/A; aa5 MDM: 11:26 Patient medically screened. [facility] 12:42 Differential diagnosis: nonspecific abdominal pain, UTI, urinary retention, Chinchilla mahesh catheter problem, urethritis. Data reviewed: vital signs, nurses notes. Consideration of Admission/Observation Escalation of care including admission/observation considered. I considered the following discharge prescriptions or medication management in the emergency department Medications were administered in the Emergency Department. See MAR. Independent interpretation of the following test(s) in the Emergency Department CT Scan: My interpretation is ct stone. Test considered but Not performed: Ultrasound no renal usg. Historians other than the Patient: Daughter/Son: son well informed. Care significantly affected by the following chronic conditions: Hypertension, Obesity, Cancer. Counseling: I had a detailed discussion with the patient and/or guardian regarding the historical points, exam findings, and any diagnostic results supporting the discharge/admit diagnosis, lab results, radiology results, the need for outpatient follow up, for definitive care, a family practitioner, a urologist. 12/30 11:27 Order name: CBC with Diff; Complete Time: 13:41 [facility] 12/30 11:27 Order name: Comprehensive Metabolic Panel; Complete Time: 13:41 [facility] 12/30 11:28 Order name: Urinalysis w/ reflexes; Complete Time: 13:41 [facility] 12/30 12:53 Order name: Urine Culture [facility] 12/30 11:28 Order name: CT Stone Protocol; Complete Time: 13:41 [facility] 12/30 11:43 Order name: Shoulder Left (2 View) XRAY; Complete Time: 13:41 [facility] 12/30 11:28 Order name: Chinchilla: remove and exchange; Complete Time: 12:32 [facility] Administered Medications: 12:45 Drug: NS 0.9% IV 500 ml IV at bolus once Route: IV; Rate: bolus; Site: right aa5 antecubital; 13:30 Follow up: IV Status: Completed infusion; IV Intake: 500ml [facility] 12:45 Drug: Rocephin IV 1 grams IV at per protocol once; Given slow IV push per pharmacy aa5 instructions Route: IV; Rate: per protocol; Site: right antecubital; 12:50 Follow up: Response: No adverse reaction; IV Status: Completed infusion aa5 Disposition Summary: 12/31/23 13:45 Discharge Ordered Notes: Location: Home mahesh Problem: new mahesh Symptoms: have improved mahesh Condition: Stable mahesh Diagnosis - Malignant neoplasm of unspecified renal pelvis mahesh - Leakage of urinary (indwelling) catheter - blocked and replaced mahesh - UTI/ Urinary tract infection, site not specified mahesh Followup: mahesh - With: Private Physician - When: 2 - 3 days - Reason: Recheck today's complaints, Continuance of care, Re-evaluation by your physician Followup: mahesh - With: Mayank Hernandez MD - When: 2 - 3 days - Reason: Recheck today's complaints, Re-evaluation by your physician Discharge Instructions: - Discharge Summary Sheet mahesh - Indwelling Urinary Catheter Care, Adult mahesh - Urinary Tract Infection, Adult mahesh - Urinary Tract Infection, Adult, [id number] mahesh - Renal Mass maehsh - Indwelling Urinary Catheter Insertion at Home, Male [facility] Forms: - Medication Reconciliation Form mahesh - Antibiotic Education mahesh - Prescription Opioid Use mahesh - Patient Portal Instructions [facility] - Leadership Thank You Letter [facility] Prescriptions: - Flomax 0.4 mg Oral capsule - take 1 capsule ORAL route every 24 hours; 21 capsule; Refills: 0, Product [facility] Selection Permitted - Cipro 250 mg Oral tablet - take 1 tablet ORAL route every 12 hours; 14 tablet; Refills: 0, Product [facility] Selection Permitted Signatures: Dispatcher [employer] Candido Barnes MD MD cha Calderon, Audri, RN RN aa5 Corrections: (The following items were deleted from the chart) 11:28 11:28 Stone Protocol+CT.RAD.BRZ ordered. MARY ELLEN HYDE
[2023-12-31 14:34] VITALS: BP 129/57; TEMP 97.1; O2SAT 100
== END 2023-12-31 14:13 | disposition home or self-care (01) ==
LOC: ER 11:20
DX: T83.098A Other mechanical complication of other urinary catheter, initial encounter (principal); N39.0 Urinary tract infection, site not specified; C65.9 Malignant neoplasm of unspecified renal pelvis
CPT/HCPCS: 96361; 87088; 85025; 81001; 87086; 36415; 80053; 76377; 74176; 73030; 51702; 96374; 99285; J7040; J0696

== ENCOUNTER 2024-02-25 17:50 | Emergency (ER) | payer OTHER ==
[2024-02-25] MEDS ORDERED: ONDANSETRON 4 MG/2 ML VIAL ONE (18:32)
[2024-02-25] MEDS ORDERED: NA CHLORIDE 0.9% 1,000 ML ONE (18:32)
[2024-02-25] MEDS ORDERED: FAMOTIDINE 20 MG/2 ML VIAL IV ONE (18:32)
[2024-02-25 18:50] LABS: Absolute Eosinophils 0.1 K/uL (0-0.5); Absolute Lymphocytes (CBC) 0.8 K/uL (0.7-4.9); Absolute Monocytes 0.6 K/uL (0.1-1.3); Absolute Neutrophil 5.5 K/uL (1.8-8.0); Basophils % 0.5 % (0-1.3); Eosinophils % 0.9 % (0-4.4); Hematocrit 32.5 % (39.6-49.0); Lymphocytes % 12.2 % (15.3-44.8); MCHC 33.9 g/dL (32.0-36.0); MCV 85.4 fL (80-100); MPV 8.1 fL (7.6-11.3); Monocytes % 8.3 % (3.3-12.3); Neutrophils % 78.1 % (41.7-73.7); Nucleated Red Blood Cells % 0.1 % (0-0); Platelets 169 thou/uL (152-406); RBC Red Blood Cell Count 3.81 M/uL (4.33-5.43); Red Cell Distribution Width 14.4 % (12.1-15.2)
--- NOTE | 2024-02-25 19:05 | RAD REPORT ---
EXAM DESCRIPTION: RAD - Chest Single View - 02/25/2024 6:56 pm CLINICAL HISTORY: vomiting Chest pain. COMPARISON: <Comparisons> FINDINGS: Portable technique limits examination quality. Mild pulmonary edema. The heart is moderately enlarged. No displaced fractures. IMPRESSION: Mild CHF.
[2024-02-25 19:18] LABS: Albumin/Globulin Ratio 0.9 (1.1-1.8); Anion Gap 11.2 mEq/L (5.0-15.0); Bilirubin Total 0.7 mg/dL (0.2-1.0); Globulin 3.5 g/dL (2.3-3.5); Potassium 4.2 mEq/L (3.5-5.1); Protein, Total 6.5 g/dL (6.4-8.2)
[2024-02-25 19:39] LABS: Troponin High Sensitivity 73.3 pg/mL (<58.9)
--- NOTE | 2024-02-25 20:07 | RAD REPORT ---
EXAM DESCRIPTION: CT - Abdomen Pelvis Wo Contrast - 02/25/2024 7:57 pm CLINICAL HISTORY: Abdominal pain. Abd pain;Nausea / vomiting COMPARISON: <Comparisons> TECHNIQUE: CT imaging of the abdomen and pelvis was performed without contrast. Solid organ, bowel a nd vascular assessment is limited due to lack of IV and oral contrast. All CT scans are performed using dose optimization technique as appropriate and may include automated exposure control or mA/KV adjustment according to patient size. FINDINGS: 3.1 cm mass is present in the right lower lobe. The liver, spleen, pancreas adrenal glands are normal.There is a large mass involving the majority of the inferior aspect of right kidney measuring up to 9 cm. Moderate right hydronephrosis and hydroure ter is present. Several diverticulum noted. Urinary catheter is in place. No bowel obstruction, free air, free fluid or abscess. The appendix is normal. The osseous structures are within normal limits. 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 Elsewhere, no acute findings. A limited non-contrast examination was performed as detailed.
--- NOTE | 2024-02-25 20:51 | EDPHYS ---
Physician Documentation [facility] Name: Lisandro Livingston Age: 83 yrs Sex: Male : 1940 Arrival Date: 02/25/2024 Time: 17:50 Bed 8 Private MD: ED Physician Efrain Soto HPI: 02/24 18:05 This 83 yrs old Male presents to ER via EMS with complaints of Abdominal Pain. cp 18:05 The patient presents with abdominal pain. cp 18:05 Onset: The symptoms/episode began/occurred 2 day(s) ago. Associated signs and symptoms: cp Pertinent positives: nausea and vomiting, Pertinent negatives: constipation, diarrhea, fever, vomiting blood. 18:05 Severity of pain: in the emergency department the pain is unchanged despite home cp interventions. Historical: - Allergies: 17:52 NKDA; ld1 - PMHx: 17:52 Bladder cancer; Cancer; COVID; Hypertension; PROSTATE CA; kidney CA; ld1 - PSHx: 17:52 Bladder Reconstruction; Cholecystectomy; ld1 - Immunization history:: Adult Immunizations up to date. - Infectious Disease History:: Denies. - Social history:: Smoking status: Patient denies any tobacco usage or history of. ROS: 18:10 Constitutional: Positive for poor PO intake, Negative for body aches, chills, fever, cp 18:10 Eyes: Negative for injury, pain, redness, and discharge, cp 18:10 ENT: Negative for drainage from ear(s), ear pain, sore throat, difficulty swallowing, difficulty handling secretions, 18:10 Cardiovascular: Negative for chest pain, edema, palpitations, 18:10 Respiratory: Negative for cough, shortness of breath, wheezing, 18:10 Abdomen/GI: Positive for abdominal pain, nausea and vomiting, Negative for diarrhea, constipation, hematemesis, 18:10 : Positive for difficulty urinating, 18:10 Neuro: Negative for altered mental status, 18:10 All other systems are negative, Exam: 18:15 Constitutional: The patient appears in no acute distress, alert, awake, cp non-diaphoretic, non-toxic, well developed, well nourished, uncomfortable, 18:15 Head/Face: Normocephalic, atraumatic. cp 18:15 Eyes: Periorbital structures: appear normal, Conjunctiva: normal, no exudate, no injection, Sclera: no appreciated abnormality, Lids and lashes: appear normal, bilaterally, 18:15 ENT: External ear(s): are unremarkable, Nose: is normal, Mouth: Lips: dry, Oral mucosa: moist, Posterior pharynx: Airway: no evidence of obstruction, patent, 18:15 Chest/axilla: Inspection: normal, 18:15 Cardiovascular: Rate: normal, Rhythm: regular, Edema: is not appreciated, JVD: is not appreciated, 18:15 Respiratory: the patient does not display signs of respiratory distress, Respirations: normal, no use of accessory muscles, no retractions, labored breathing, is not present, Breath sounds: are clear throughout, no decreased breath sounds, no stridor, no wheezing, 18:15 Abdomen/GI: Inspection: abdomen appears normal, Bowel sounds: active, all quadrants, Palpation: soft, in all quadrants, moderate abdominal tenderness, in the right lower quadrant and left lower quadrant, rebound tenderness, is not appreciated, involuntary guarding, is not appreciated, 18:15 Skin: cellulitis, is not appreciated, no rash present. 18:15 Neuro: Orientation: no acute changes, per family, Mentation: no acute changes, per family, Motor: moves all fours, no focal deficits, 18:53 ECG was reviewed by the Attending Physician. cp Vital Signs: 17:57 BP 108 / 51; Pulse 65; Resp 17; Temp 100; Pulse Ox 98% ; rs5 18:54 BP 110 / 50; Pulse 61; Resp 18; Pulse Ox 98% on R/A; ld1 19:23 BP 110 / 50; Pulse 59; Resp 18; Temp 98.5; Pulse Ox 97% on R/A; Pain 4/10; bm8 20:46 BP 121 / 45; Pulse 66; Resp 18; Temp 98.5; Pulse Ox 97% on R/A; Pain 4/10; bm8 02/25 01:34 BP 109 / 54; Pulse 67; Resp 19; Temp 98.4; Pulse Ox 95% on R/A; Pain 0/10; tm6 19:23 Pain Scale: Adult bm8 20:46 Pain Scale: Adult bm8 02/25 01:34 Pain Scale: Adult tm6 Shaye Coma Score: 02/24 19:23 Eye Response: spontaneous(4). Motor Response: obeys commands(6). Verbal Response: bm8 oriented(5). Total: 15. 20:46 Eye Response: spontaneous(4). Motor Response: obeys commands(6). Verbal Response: bm8 oriented(5). Total: 15. MDM: 17:57 Patient medically screened. 19:00 Differential diagnosis: bowel obstruction, gastritis, non-specific abd pain, cp pancreatitis, Pyelonephritis, Ureterolithiasis, urinary tract infection. 20:45 Data reviewed: vital signs, nurses notes, lab test result(s), radiologic studies, CT cp scan, and as a result, I will transfer patient. 20:45 I considered the following discharge prescriptions or medication management in the emergency department Medications were administered in the Emergency Department. See MAR. Care significantly affected by the following chronic conditions: Hypertension, Cancer. 02/24 18:10 Order name: CBC with Diff; Complete Time: 19:49 02/24 19:50 Interpretation: Normal except: RBC 3.81; HGB 11.0; HCT 32.5; KORY% 78.1; LYM% 12.2. 02/24 18:10 Order name: CMP; Complete Time: 19:49 02/24 19:51 Interpretation: Normal except: NA 131; GLUC 163; BUN 60; CRE 1.65; GFR 40; ALK 138; ALB cp 3.0; A/G 0.9. 02/24 18:10 Order name: Lipase; Complete Time: 19:49 02/24 18:10 Order name: Magnesium; Complete Time: 19:49 02/24 18:10 Order name: Troponin High Sensitivity; Complete Time: 19:49 02/24 19:51 Interpretation: Abnormal: Troponin HS 73.3. 02/24 18:10 Order name: XRAY Chest (1 view); Complete Time: 19:49 cp 02/24 19:57 Order name: Abdomen ; Complete Time: 22:01 EDMS 02/24 18:10 Order name: IV Saline Lock; Complete Time: 18:39 cp 02/24 18:10 Order name: Labs collected and sent; Complete Time: 18:39 cp 02/24 18:10 Order name: EKG - Nurse/Tech; Complete Time: 18:40 02/25 00:04 Order name: Humphreys; Complete Time: 00:47 cp EC:53 Rate is 58 beats/min. Rhythm is regular. AL interval is prolonged at 214 msec. QRS cp interval is normal. QT interval is normal. T waves are Inverted in lead aVR. Interpreted by me. Reviewed by me. Administered Medications: 18:30 Drug: Famotidine IVP 20 mg IVP once; dilute with 10 mL 0.9% NaCl; give over 2 minutes rs5 Route: IVP; Site: right antecubital; 19:36 Follow up: Response: No adverse reaction bm8 18:30 Drug: Ondansetron IVP 4 mg IVP once; over 2 minutes Route: IVP; Site: right antecubital;rs5 19:36 Follow up: Response: No adverse reaction bm8 18:30 Drug: NS 0.9% IV 1000 ml IV at 250 ml/hr Per protocol; 1000 mL bolus Route: IV; Rate: rs5 250 ml/hr; Site: right antecubital; 02/25 01:38 Follow up: IV Status: Completed infusion tm6 Disposition Summary: 02/25/24 20:51 Transfer Ordered Notes: Transfer Location: [facility] cp Reason: Higher level of care cp Condition: Stable cp Problem: new cp Symptoms: have improved cp Accepting Physician: Doctor(02/26/24 01:38) tm6 Diagnosis - Nausea with vomiting, unspecified cp - Unspecified injury of unspecified kidney, initial encounter cp - Hydroureter cp - Unspecified hydronephrosis cp Forms: - Medication Reconciliation Form cp - SBAR form cp Signatures: Dispatcher [employer] EDMS Candido Elise PA PA cp Debra García RN RN ld1 True Bruner RN RN rs5 Sena Rutherford RN RN tm6 Gonzales Sarkar RN bm8 Corrections: (The following items were deleted from the chart) 02/24 18:11 18:11 CBC+H.LAB.BRZ ordered. EDMS EDMS 18:11 18:11 COMPREHENSIVE METABOLIC PANEL+C.LAB.BRZ ordered. EDMS EDMS 18:11 18:11 LIPASE+C.LAB.BRZ ordered. EDMS EDMS 18:11 18:11 Urinalysis+U.LAB.BRZ ordered. EDMS EDMS 18:11 18:11 MAGNESIUM+C.LAB.BRZ ordered. EDMS EDMS 18:11 18:11 Troponin High Sensitivity+C.LAB.BRZ ordered. EDMS EDMS 18: 18:11 Chest Single View+RAD.RAD.BRZ ordered. EDMS EDMS 19:57 18:35 Abdomen Pelvis W Con+CT.RAD.BRZ ordered. EDMS EDMS 02/25 01:38 02/24 20:51 Doctor cp tm6
--- NOTE | 2024-02-25 20:51 | ER ---
Nurse's Notes [facility] Name: Lisandro Livingston Age: 83 yrs Sex: Male : 1940 Arrival Date: 02/25/2024 Time: 17:50 Bed 8 Private MD: Diagnosis: Nausea with vomiting, unspecified;Unspecified injury of unspecified kidney, initial encounter;Hydroureter;Unspecified hydronephrosis Presentation: 02/24 17:57 Chief complaint: EMS states: Abdominal pain, N/V, x2 days. Coronavirus screen: At this rs5 time, the client does not indicate any symptoms associated with coronavirus-19. Ebola Screen: No symptoms or risks identified at this time. Initial Sepsis Screen: Does the patient meet any 2 criteria? Temp <36.0*C (96.8*F)) or > 38.3*C (100.9*F). Yes Does the patient have a suspected source of infection? No. Patient's initial sepsis screen is negative. Risk Assessment: Do you want to hurt yourself or someone else? Patient reports no desire to harm self or others. Onset of symptoms was February 25, 2024. 17:57 Method Of Arrival: EMS: [facility] rs5 17:57 Acuity: JUDIT 3 rs5 Historical: - Allergies: 17:52 NKDA; ld1 - PMHx: 17:52 Bladder cancer; Cancer; COVID; Hypertension; PROSTATE CA; kidney CA; ld1 - PSHx: 17:52 Bladder Reconstruction; Cholecystectomy; ld1 - Immunization history:: Adult Immunizations up to date. - Infectious Disease History:: Denies. - Social history:: Smoking status: Patient denies any tobacco usage or history of. Screenin:55 [facility] ED Fall Risk Assessment (Adult) History of falling in the last 3 months, rs5 including since admission No falls in past 3 months (0 pts) Confusion or Disorientation No (0 pts) Intoxicated or Sedated No (0 pts) Impaired Gait Yes (1 pt) Mobility Assist Device Used Yes (1 pt) Altered Elimination No (0 pt) Score/Fall Risk Level 0 - 2 = Low Risk Oriented to surroundings, Maintained a safe environment. Abuse screen: Denies threats or abuse. Nutritional screening: No deficits noted. Tuberculosis screening: No symptoms or risk factors identified. Assessment: 17:53 General: Appears in no apparent distress. uncomfortable, Behavior is calm, cooperative. rs5 Pain: Complains of pain in abdomen Pain currently is 4 out of 10 on a pain scale. Quality of pain is described as aching, Is continuous. Neuro: Level of Consciousness is awake, alert, Oriented to person, place, time, situation. Cardiovascular: Patient's skin is warm and dry. Respiratory: Airway is patent Respiratory effort is even, unlabored, Respiratory pattern is regular, symmetrical. GI: Abdomen is round non-distended, Bowel sounds Abd is soft and non tender X 4 quads. Reports nausea, vomiting. : No signs and/or symptoms were reported regarding the genitourinary system. EENT: No signs and/or symptoms were reported regarding the EENT system. Derm: Skin is intact, Skin is pink, warm \T\ dry. Musculoskeletal: Range of motion: intact in all extremities. 18:44 Reassessment: Patient and/or family updated on plan of care and expected duration. Pain rs5 level reassessed. Patient is alert, oriented x 3, equal unlabored respirations, skin warm/dry/pink. 19:23 General: Appears in no apparent distress. uncomfortable, Behavior is calm, cooperative. bm8 Pain: Complains of pain in suprapubic area, right lower quadrant and left lower quadrant Pain currently is 4 out of 10 on a pain scale. Neuro: Level of Consciousness is awake, alert, Oriented to person, place, time, situation. Cardiovascular: Capillary refill < 3 seconds Patient's skin is warm and dry. Respiratory: Airway is patent Respiratory effort is even, unlabored, Respiratory pattern is regular, symmetrical. GI: Abdomen is flat, non-distended, Bowel sounds hyperactive in suprapubic area, right upper quadrant, left upper quadrant, right lower quadrant and left lower quadrant Abdomen is tender to palpation in suprapubic area and right lower quadrant Reports Pain is 4 out of 10 on a pain scale. : No signs and/or symptoms were reported regarding the genitourinary system. EENT: No signs and/or symptoms were reported regarding the EENT system. Derm: Skin is intact, Skin is pink, warm \T\ dry. 20:45 Reassessment: Patient appears in no apparent distress at this time. No changes from bm8 previously documented assessment. Patient and/or family updated on plan of care and expected duration. Pain level reassessed. 02/25 01:35 Reassessment: Patient appears in no apparent distress at this time. Patient and/or tm6 family updated on plan of care and expected duration. Pain level reassessed. Patient is alert, oriented x 3, equal unlabored respirations, skin warm/dry/pink. Vital Signs: 02/24 17:57 BP 108 / 51; Pulse 65; Resp 17; Temp 100; Pulse Ox 98% ; rs5 18:54 BP 110 / 50; Pulse 61; Resp 18; Pulse Ox 98% on R/A; ld1 19:23 BP 110 / 50; Pulse 59; Resp 18; Temp 98.5; Pulse Ox 97% on R/A; Pain 4/10; bm8 20:46 BP 121 / 45; Pulse 66; Resp 18; Temp 98.5; Pulse Ox 97% on R/A; Pain 4/10; bm8 02/25 01:34 BP 109 / 54; Pulse 67; Resp 19; Temp 98.4; Pulse Ox 95% on R/A; Pain 0/10; tm6 19:23 Pain Scale: Adult bm8 20:46 Pain Scale: Adult bm8 02/25 01:34 Pain Scale: Adult tm6 Thompson Coma Score: 02/24 19:23 Eye Response: spontaneous(4). Motor Response: obeys commands(6). Verbal Response: bm8 oriented(5). Total: 15. 20:46 Eye Response: spontaneous(4). Motor Response: obeys commands(6). Verbal Response: bm8 oriented(5). Total: 15. ED Course: 17:52 Patient arrived in ED. ld1 17:55 Patient has correct armband on for positive identification. Placed in gown. Bed in low rs5 position. Call light in reach. Side rails up X2. 17:56 Candido Elise PA is PHCP. cp 17:57 Goldy Sands MD is Attending Physician. cp 17:57 True Bruner, FAVIOLA is Primary Nurse. rs5 17:59 Triage completed. rs5 18:05 No provider procedures requiring assistance completed. Inserted saline lock: 20 gauge rs5 in right antecubital area, using aseptic technique. Blood collected. Flushed with 10 mL NS. 18:58 XRAY Chest (1 view) In Process Unspecified. EDMS 19:00 Arm band placed on. tm6 19:23 Client placed on continuous cardiac and pulse oximetry monitoring. NIBP monitoring bm8 applied. photographers' model on. Pulse ox on. NIBP on. Door closed. Noise minimized. Warm blanket given. Verbal reassurance given. 19:23 Flushed right antecubital with 5 ml normal saline. bm8 19:39 Notified Nurse Practitioner and/or Physician Shape Brick Molder of a critical lab result(s), bm8 trop 73.3. 19:57 Abdomen In Process Unspecified. EDMS 20:56 Initiated transfer with Macie at [facility]. rv1 21:22 Efrain Soto MD is Attending Physician. cp 21:27 Doc to Doc with Oncologist. rv1 21:56 Provided Education on: need for transfer. Repositioned patient. Cleaned of incontinence.bm8 22:00 Doc to Doc with hospitalist. rv1 23:07 Transfer delayed due to waiting for bed to open up according to Yesica at . [address] 23:[address] Bonner [address] [facility]. rv1 02/25 00:28 Pt transfer delayed due to Nurses being with another critical patient and unable to rv1 call report. 00:51 Humphreys cath inserted, using sterile technique, 16 Fr., by ut, balloon inflated, to af3 gravity drainage, clamped. Patient tolerated well. 01:37 Patient transferred, IV remains in place. tm6 Administered Medications: 02/24 18:30 Drug: Famotidine IVP 20 mg IVP once; dilute with 10 mL 0.9% NaCl; give over 2 minutes rs5 Route: IVP; Site: right antecubital; 19:36 Follow up: Response: No adverse reaction bm8 18:30 Drug: Ondansetron IVP 4 mg IVP once; over 2 minutes Route: IVP; Site: right antecubital;rs5 19:36 Follow up: Response: No adverse reaction bm8 18:30 Drug: NS 0.9% IV 1000 ml IV at 250 ml/hr Per protocol; 1000 mL bolus Route: IV; Rate: rs5 250 ml/hr; Site: right antecubital; 02/25 01:38 Follow up: IV Status: Completed infusion tm6 Medication: 02/24 19:23 VIS not applicable for this client. bm8 Output: 02/25 01:02 Urine: 500ml (Humphreys); Total: 500ml. af3 Outcome: 02/24 20:51 ER care complete, transfer ordered by MD. reynolds 02/25 01:35 Transferred by ground EMS to [facility] [place], 6 Condition: stable Instructed on the need for transfer, Demonstrated understanding of instructions, 01:38 Patient left the ED. tm6 Signatures: Dispatcher [employer] EDMS Candido Elise PA PA cp Sims, Lauren, RN RN ld1 Manasa Pickard rv1 True Bruner, RN RN rs5 Sena Rutherford RN RN tm6 Gonzales Sarkar RN RN bm8 Samantha Jose af3
[2024-02-26 01:47] VITALS: BP 109/54; TEMP 98.4; O2SAT 95
--- NOTE | 2024-02-26 14:08 | EKG ---
Test Date: 2024-02-25 Test Time: 18:47:14 Performance Management Consultant: CHUCK MEASUREMENT RESULTS: Intervals: Rate: 58 TX: 214 QRSD: 90 QT: 402 QTc: 394 Ayden: P: 13 TX: 214 QRS: 0 T: 12 INTERPRETIVE STATEMENTS: Sinus bradycardia with 1st degree AV block Otherwise normal ECG Compared to ECG 09/26/2023 17:42:00 No significant changes Electronically Signed On 02-26-24 14:05:27 CDT by Aureliano Nice
== END 2024-02-26 01:38 | disposition short-term general hospital (02) ==
LOC: ER 17:50
DX: S37.001A Unspecified injury of right kidney, initial encounter (principal); N13.4 Hydroureter; N13.30 Unspecified hydronephrosis; R30.0 Dysuria; I10 Essential (primary) hypertension; Z85.46 Personal history of malignant neoplasm of prostate; Z85.51 Personal history of malignant neoplasm of bladder; Z90.49 Acquired absence of other specified parts of digestive tract
CPT/HCPCS: 96361; 93005; 85025; 36415; 83735; 84484; 83690; 80053; 74176; 71045; 51702; 96375; 96374; 99285; J2405; J7030

== ENCOUNTER 2024-03-12 11:36 | Emergency (ER) | payer OTHER ==
[2024-03-12] MEDS ORDERED: ONDANSETRON 4 MG/2 ML VIAL ONE (12:10)
[2024-03-12] MEDS ORDERED: NA CHLORIDE 0.9% 1,000 ML ONE (12:10)
--- NOTE | 2024-03-12 12:41 | RAD REPORT ---
EXAM DESCRIPTION: CT - Abdomen Pelvis Wo Contrast - 03/12/2024 12:09 pm CLINICAL HISTORY: Abdominal pain. ABD PAIN COMPARISON: Abdomen Pelvis Wo Contrast dated 02/25/2024; Stone Protocol dated 12/31/2023; Abdomen P bess W Contrast dated 12/23/2023 TECHNIQUE: CT imaging of the abdomen and pelvis was performed without contrast. Solid organ, bowel a nd vascular assessment is limited due to lack of IV and oral contrast. All CT scans are performed using dose optimization technique as appropriate and may include automated exposure control or mA/KV adjustment according to patient size. FINDINGS: 3 cm mass is present in the right lung base, unchanged since recent study. Trace left pleu ral fluid. The liver, spleen, pancreas, adrenal glands and left kidney are within normal limits for a limited no n-contrast examination.Large mass and compressing the majority of the inferior right kidney measuring to 9 cm unchanged. No bowel obstruction, free air, free fluid or abscess. Postsurgical clips are present about the abdom inal aorta. Appendectomy. Significant stool in the rectosigmoid colon. 4.4 x 3.6 cm soft tissue mass is seen in the right sacral ala presumably metastatic in etiology. Humphreys catheter appears to be in place decompressing the urinary bladder. IMPRESSION: 4.4 cm soft tissue mass seen in the right sacral ala likely a metastatic deposit. Large neoplastic mass is present right kidney. 3 cm mass in the right lung base also likely metastatic in origin. A limited non-contrast examination was performed as detailed.
[2024-03-12 12:56] LABS: Absolute Basophils 0.1 K/uL (0-0.5); Absolute Eosinophils 0.1 K/uL (0-0.5); Absolute Lymphocytes (CBC) 1.3 K/uL (0.7-4.9); Absolute Monocytes 0.5 K/uL (0.1-1.3); Absolute Neutrophil 4.6 K/uL (1.8-8.0); Eosinophils % 0.8 % (0-4.4); Hematocrit 32.1 % (39.6-49.0); Hemoglobin 10.6 g/dL (13.6-17.9); Lymphocytes % 20.2 % (15.3-44.8); MCH 28.6 pg (27.0-35.0); MCV 86.7 fL (80-100); MPV 7.3 fL (7.6-11.3); Monocytes % 8.2 % (3.3-12.3); Neutrophils % 69.8 % (41.7-73.7); Platelets 243 thou/uL (152-406); RBC Red Blood Cell Count 3.71 M/uL (4.33-5.43); Red Cell Distribution Width 14.7 % (12.1-15.2)
[2024-03-12 13:14] LABS: Albumin 2.6 g/dL (3.4-5.0); Albumin/Globulin Ratio 0.7 (1.1-1.8); Anion Gap 7.7 mEq/L (5.0-15.0); Bilirubin Total 0.5 mg/dL (0.2-1.0); Globulin 3.9 g/dL (2.3-3.5); Potassium 4.7 mEq/L (3.5-5.1); Protein, Total 6.5 g/dL (6.4-8.2)
--- NOTE | 2024-03-12 13:27 | EDPHYS ---
Physician Documentation [facility] Name: Lisandro Livingston Age: 83 yrs Sex: Male : 1940 Arrival Date: 03/12/2024 Time: 11:36 Bed 2 Private MD: ED Physician Candido Cook HPI: 03/12 12:32 This 83 yrs old Male presents to ER via EMS with complaints of Pelvic Pain. mahesh 12:32 The patient presents with a Chinchilla catheter problem, is not draining. Onset: The mahesh symptoms/episode began/occurred 1 day(s) ago. Modifying factors: The symptoms are alleviated by nothing, the symptoms are aggravated by nothing. Associated signs and symptoms: Pertinent positives: abdominal pain. Severity of symptoms: At their worst the symptoms were mild, in the emergency department the symptoms are unchanged. The patient has not experienced similar symptoms in the past. Historical: - Allergies: 11:38 NKDA; bp - PMHx: 11:38 Bladder cancer; Cancer; COVID; Hypertension; kidney CA; PROSTATE CA; bp - PSHx: 11:38 Bladder Reconstruction; Cholecystectomy; bp - Immunization history:: Adult Immunizations up to date. - Infectious Disease History:: Denies. - Social history:: Smoking status: Patient denies any tobacco usage or history of. ROS: 12:34 Constitutional: Negative for fever, chills, and weight loss, Eyes: Negative for injury, mahesh pain, redness, and discharge, ENT: Negative for injury, pain, and discharge, Neck: Negative for injury, pain, and swelling, Cardiovascular: Negative for chest pain, palpitations, and edema, Respiratory: Negative for shortness of breath, cough, wheezing, and pleuritic chest pain, Abdomen/GI: Negative for abdominal pain, nausea, vomiting, diarrhea, and constipation, Back: Negative for injury and pain, MS/Extremity: Negative for injury and deformity, Skin: Negative for injury, rash, and discoloration, Neuro: Negative for headache, weakness, numbness, tingling, and seizure, Psych: Negative for depression, anxiety, suicide ideation, homicidal ideation, and hallucinations, Allergy/Immunology: Negative for hives, rash, and allergies, Endocrine: Negative for neck swelling, polydipsia, polyuria, polyphagia, and marked weight changes, Hematologic/Lymphatic: Negative for swollen nodes, abnormal bleeding, and unusual bruising, 12:34 : Positive for difficulty urinating, penile pain, chinchilla pain, hx bladder ca, kidney ca, Exam: 12:34 Constitutional: This is a well developed, well nourished patient who is awake, alert, mahesh and in no acute distress. Head/Face: Normocephalic, atraumatic. Eyes: Pupils equal round and reactive to light, extra-ocular motions intact. Lids and lashes normal. Conjunctiva and sclera are non-icteric and not injected. Cornea within normal limits. Periorbital areas with no swelling, redness, or edema. ENT: Nares patent. No nasal discharge, no septal abnormalities noted. Tympanic membranes are normal and external auditory canals are clear. Oropharynx with no redness, swelling, or masses, exudates, or evidence of obstruction, uvula midline. Mucous membranes moist. Neck: Trachea midline, no thyromegaly or masses palpated, and no cervical lymphadenopathy. Supple, full range of motion without nuchal rigidity, or vertebral point tenderness. No Meningismus. Chest/axilla: Normal chest wall appearance and motion. Nontender with no deformity. No lesions are appreciated. Cardiovascular: Regular rate and rhythm with a normal S1 and S2. No gallops, murmurs, or rubs. Normal PMI, no JVD. No pulse deficits. Respiratory: Lungs have equal breath sounds bilaterally, clear to auscultation and percussion. No rales, rhonchi or wheezes noted. No increased work of breathing, no retractions or nasal flaring. Abdomen/GI: Soft, non-tender, with normal bowel sounds. No distension or tympany. No guarding or rebound. No evidence of tenderness throughout. Back: No spinal tenderness. No costovertebral tenderness. Full range of motion. Skin: Warm, dry with normal turgor. Normal color with no rashes, no lesions, and no evidence of cellulitis. MS/ Extremity: Pulses equal, no cyanosis. Neurovascular intact. Full, normal range of motion. Neuro: Awake and alert, GCS 15, oriented to person, place, time, and situation. Cranial nerves II-XII grossly intact. Motor strength 5/5 in all extremities. Sensory grossly intact. Cerebellar exam normal. Normal gait. Psych: Awake, alert, with orientation to person, place and time. Behavior, mood, and affect are within normal limits. 12:34 Back: pain, that is mild, ROM is normal, CVA tenderness, is absent, 12:34 : CVA tenderness, is absent, Male external genitalia: normal, Bladder: is normal, non-distended, non-tender, Sexual behavior: the patient is not sexually active, 12:34 Neuro: Orientation: is normal, appropriate for stated age, no acute changes, Mentation: is normal, appropriate for stated age, no acute changes, Memory: is normal, appropriate for stated age, no acute changes, seizure activity, is not displayed by the patient, Vital Signs: 11:37 BP 111 / 52; Pulse 62; Resp 16; Temp 97.6; Pulse Ox 100% ; bp 13:19 BP 96 / 55; Pulse 60; Resp 16; Pulse Ox 97% ; bp 14:42 BP 113 / 58; Pulse 60; Resp 16; Pulse Ox 100% ; bp 16:40 BP 115 / 60; Pulse 60; Resp 14 S; Pulse Ox 100% on R/A; aa5 MDM: 11:38 Patient medically screened. mahesh 12:36 Differential diagnosis: nonspecific abdominal pain, UTI, urinary retention, Chinchilla mahesh catheter problem, prostatitis, urethritis, non-specific abd pain. Data reviewed: vital signs, nurses notes, lab test result(s), radiologic studies, CT scan. Consideration of Admission/Observation Escalation of care including admission/observation considered. I considered the following discharge prescriptions or medication management in the emergency department Medications were administered in the Emergency Department. See MAR. Independent interpretation of the following test(s) in the Emergency Department CT Scan: My interpretation is ct stone. Test considered but Not performed: Ultrasound abd usg. Historians other than the Patient: EMS: ems moderately well informed. Care significantly affected by the following chronic conditions: Hypertension, Cancer. Counseling: I had a detailed discussion with the patient and/or guardian regarding the historical points, exam findings, and any diagnostic results supporting the discharge/admit diagnosis, lab results, radiology results, the need for outpatient follow up, for definitive care, a family practitioner, a urologist. 03/12 11:39 Order name: CBC with Diff; Complete Time: 13:24 [facility] 03/12 11:39 Order name: CMP; Complete Time: : mahesh 03/12 11:39 Order name: Lipase; Complete Time: 13:24 [facility] 03/12 11:39 Order name: Urinalysis w/ reflexes; Complete Time: 14:16 [facility] 03/12 13:50 Order name: Urine Culture [facility] 03/12 11:39 Order name: CT Abd/Pelvis - Without Contrast; Complete Time: 13:24 [facility] 03/12 11:39 Order name: IV Saline Lock; Complete Time: 12:46 [facility] 03/12 11:39 Order name: Labs collected and sent; Complete Time: 12:46 [facility] 03/12 11:39 Order name: Chinchilla: exchange; Complete Time: 13:18 [facility] Administered Medications: 12:30 Drug: NS 0.9% IV 1000 ml IV at 1 bolus Per protocol; 1000 mL bolus Route: IV; Rate: 1 bp bolus; Site: right antecubital; 15:50 Follow up: Response: No adverse reaction; IV Status: Completed infusion; IV Intake: me1 1000ml 12:30 Drug: Ondansetron IVP 4 mg IVP once; over 2 minutes Route: IVP; Site: right antecubital;bp 13:18 Follow up: Response: No adverse reaction bp 14:30 Drug: Rocephin IV 1 grams IV at per protocol once; Given slow IV push per pharmacy bp instructions Route: IV; Rate: per protocol; Site: right antecubital; 15:50 Follow up: Response: No adverse reaction; IV Status: Completed infusion me1 14:30 Drug: Ciprofloxacin PO 500 mg PO once Route: PO; bp 15:50 Follow up: Response: No adverse reaction me1 Disposition Summary: 03/12/24 13:27 Discharge Ordered Notes: Location: Home mahesh Problem: new mahesh Symptoms: have improved mahesh Condition: Stable mahesh Diagnosis - Other mechanical complication of urinary (indwelling) catheter mahesh - 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, lung, pelvis, mahesh cutaneous Followup: mahesh - With: Private Physician - When: 2 - 3 days - Reason: Recheck today's complaints, Continuance of care, Re-evaluation by your physician Followup: mahesh - With: Alyssa Vicente MD - When: 2 - 3 days - Reason: Recheck today's complaints, Re-evaluation by your physician Discharge Instructions: - Discharge Summary Sheet mahesh - Indwelling Urinary Catheter Care, Adult mahesh - Bladder Cancer mahesh - Indwelling Urinary Catheter Care, Adult, [id number] mahesh - Kidney Cancer [facility] Forms: - Medication Reconciliation Form mahesh - Antibiotic Education mahesh - Prescription Opioid Use mahesh - Patient Portal Instructions [facility] - Leadership Thank You Letter [facility] Prescriptions: - acetaminophen-codeine 300-30 mg Oral tablet - take 2 tablet ORAL route every 6 hours as needed for pain; 20 tablet; Refills: mahesh 0, Product Selection Permitted - Cipro 250 mg Oral tablet - take 1 tablet ORAL route every 12 hours; 15 tablet; Refills: 0, Product mahesh Selection Permitted - Lactulose 10 gram/15 mL Oral solution - take 15 milliliter ORAL route every 12 hours; 200 milliliter; Refills: 0, mahesh Product Selection Permitted Signatures: Dispatcher [employer] Candido Barnes MD MD cha Peltier, Brian, RN RN bp Erin La RN me1 Corrections: (The following items were deleted from the chart) 11:40 11:40 Abdomen Pelvis Wo Con+CT.RAD.BRZ ordered. EDMS EDMS
--- NOTE | 2024-03-12 13:27 | ER ---
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 Coronavirus screen: At this bp time, the client does not indicate any symptoms associated with coronavirus-19. Ebola Screen: No symptoms or risks identified at this time. Initial Sepsis Screen: Does the patient meet any 2 criteria? No. Patient's initial sepsis screen is negative. Does the patient have a suspected source of infection? No. Patient's initial sepsis screen is negative. Risk Assessment: Do you want to hurt yourself or someone else? Patient reports no desire to harm self or others. Onset of symptoms is unknown. 11:37 Method Of Arrival: EMS: [facility] bp 11:37 Acuity: JUDIT 3 bp Triage Assessment: 11:38 General: Appears in no apparent distress. uncomfortable, Behavior is calm, cooperative, bp appropriate for age. Pain: Complains of pain in pelvis. : Delgadillo in place to gravity drainage. Historical: - Allergies: 11:38 NKDA; bp - PMHx: 11:38 Bladder cancer; Cancer; COVID; Hypertension; kidney CA; PROSTATE CA; bp - PSHx: 11:38 Bladder Reconstruction; Cholecystectomy; bp - Immunization history:: Adult Immunizations up to date. - Infectious Disease History:: Denies. - Social history:: Smoking status: Patient denies any tobacco usage or history of. Screenin:39 [facility] ED Fall Risk Assessment (Adult) History of falling in the last 3 months, bp including since admission No falls in past 3 months (0 pts) Confusion or Disorientation No (0 pts) Intoxicated or Sedated No (0 pts) Impaired Gait No (0 pts) Mobility Assist Device Used No (0 pt) Altered Elimination No (0 pt) Score/Fall Risk Level 0 - 2 = Low Risk Oriented to surroundings. Abuse screen: Denies threats or abuse. Denies injuries from another. Nutritional screening: No deficits noted. Tuberculosis screening: No symptoms or risk factors identified. Assessment: 11:39 General: Appears in no apparent distress. uncomfortable, Behavior is calm, cooperative, bp appropriate for age. 13:19 Reassessment: No changes from previously documented assessment. Patient is alert, bp oriented x 3, equal unlabored respirations, skin warm/dry/pink. 13:37 Reassessment: DC ON HOLD FOR LAB RESULTS. bp 14:43 Reassessment: DC ON HOLD FOR ABX. bp 16:40 Reassessment: Patient is alert, oriented x 3, equal unlabored respirations, skin aa5 warm/dry/pink. Vital Signs: 11:37 BP 111 / 52; Pulse 62; Resp 16; Temp 97.6; Pulse Ox 100% ; bp 13:19 BP 96 / 55; Pulse 60; Resp 16; Pulse Ox 97% ; bp 14:42 BP 113 / 58; Pulse 60; Resp 16; Pulse Ox 100% ; bp 16:40 BP 115 / 60; Pulse 60; Resp 14 S; Pulse Ox 100% on R/A; aa5 ED Course: 11:37 Patient arrived in ED. bp 11:38 Candido Cook MD is Attending Physician. mahesh 11:38 Triage completed. bp 11:38 Arm band placed on. bp 11:39 Dilip Rose, FAVIOLA is Primary Nurse. bp 11:39 Patient has correct armband on for positive identification. bp 12:10 CT Abd/Pelvis - Without Contrast In Process Unspecified. EDMS 12:45 Initial lab(s) drawn, by mi, sent to lab. Inserted saline lock: 22 gauge in right aa5 antecubital area, using aseptic technique. Blood collected. Flushed with 10 mL NS. 13:18 16FR DELGADILLO EXCHANGED FOR NEW. bp 13:27 Alyssa Vicente MD is Referral Physician. mahesh 16:40 No provider procedures requiring assistance completed. IV discontinued, intact, aa5 bleeding controlled, No redness/swelling at site. Pressure dressing applied. Administered Medications: 12:30 Drug: NS 0.9% IV 1000 ml IV at 1 bolus Per protocol; 1000 mL bolus Route: IV; Rate: 1 bp bolus; Site: right antecubital; 15:50 Follow up: Response: No adverse reaction; IV Status: Completed infusion; IV Intake: me1 1000ml 12:30 Drug: Ondansetron IVP 4 mg IVP once; over 2 minutes Route: IVP; Site: right antecubital;bp 13:18 Follow up: Response: No adverse reaction bp 14:30 Drug: Rocephin IV 1 grams IV at per protocol once; Given slow IV push per pharmacy bp instructions Route: IV; Rate: per protocol; Site: right antecubital; 15:50 Follow up: Response: No adverse reaction; IV Status: Completed infusion me1 14:30 Drug: Ciprofloxacin PO 500 mg PO once Route: PO; bp 15:50 Follow up: Response: No adverse reaction me1 Medication: 11:39 VIS not applicable for this client. bp Intake: 15:50 IV: 1000ml; Total: 1000ml. me1 Outcome: 13:27 Discharge ordered by . mahesh 16:40 Discharged to home via wheelchair, with family, aaJames 16:40 Condition: stable 16:40 Discharge instructions given to patient, family, Instructed on discharge instructions, follow up and referral plans. medication usage, Demonstrated understanding of instructions, follow-up care, medications, Prescriptions given X 3, 16:41 Patient left the ED. aa5 Signatures: Dispatcher [employer] EDCandido Willis MD MD cha Calderon, Audri, RN RN aa5 Dilip Rose, RN RN bp Erin La, FAVIOLA RN me1 Corrections: (The following items were deleted from the chart) 14:48 14:42 Pulse 60bpm; Resp 16bpm; Pulse Ox 100%; bp bp
[2024-03-12 13:47] LABS: Specific Gravity 1.011 (1.005-1.030); Sqamous Epithelial <5 /HPF (None Seen); Urine Bacteria <20 /HPF (<20); Urine Bilirubin NEGATIVE (Negative); Urine Blood 1+ (Negative); Urine Clarity Extremely Turbid (Clear); Urine Color Yellow (Yellow); Urine Culture Reflex Order REFLEXED; Urine Glucose NEGATIVE (Negative); Urine Ketones NEGATIVE (Negative); Urine Microscopic Reflex YN ORDER UMIC; Urine Mucus Slight /HPF (None Seen); Urine Nitrite NEGATIVE (Negative); Urine Protein 1+ (Negative); Urine RBC 21-50 /HPF (None Seen); Urine Urobilinogen Normal (Normal); Urine WBC >50 /HPF (<5); Urine WBC Clump Occasional /HPF (None Seen)
[2024-03-12] MEDS ORDERED: CEFTRIAXONE 1000 MG/VIAL ONE (14:34)
[2024-03-12] MEDS ORDERED: CIPROFLOXACIN HCL 500 MG TAB ONE (14:35)
[2024-03-12] MEDS ORDERED: NA CHLORIDE 0.9% 100 ML ONE (14:35)
[2024-03-12 16:56] VITALS: TEMP 97.6; O2SAT 100
[2024-03-12 16:58] VITALS: BP 113/58
== END 2024-03-12 16:41 | disposition home or self-care (01) ==
LOC: ER 11:36
PROC: 0T2BX0Z Change Drainage Device in Bladder, External Approach (ICD-10-PCS; principal; 2024-03-12)
DX: T83.098A Other mechanical complication of other urinary catheter, initial encounter (principal); D41.01 Neoplasm of uncertain behavior of right kidney; C78.00 Secondary malignant neoplasm of unspecified lung; C79.89 Secondary malignant neoplasm of other specified sites; C79.2 Secondary malignant neoplasm of skin; Z85.46 Personal history of malignant neoplasm of prostate; Z85.51 Personal history of malignant neoplasm of bladder
CPT/HCPCS: 96365; 96361; 87088; 85025; 81001; 87086; 36415; 87077 ×2; 87186 ×2; 83690; 80053; 74176; 96375; 99284; 51702; J2405; J7030; J0696

== ENCOUNTER 2024-03-13 20:21 | Emergency (ER) | payer OTHER ==
--- NOTE | 2024-03-13 21:50 | ER ---
Nurse's Notes [facility] Name: Lisandro Livingston Age: 83 yrs Sex: Male : 1940 Arrival Date: 03/13/2024 Time: 20:21 Bed 15 Private MD: Diagnosis: Leakage of urinary (indwelling) catheter Presentation: 03/13 20:40 Chief complaint: Patient's son or daughter states: He is saying that the catherter is bm8 leaking and he is getting wet in his diaper. it was placed yesterday. Coronavirus screen: At this time, the client does not indicate any symptoms associated with coronavirus-19. Ebola Screen: Patient negative for fever greater than or equal to 101.5 degrees Fahrenheit, and additional compatible Ebola Virus Disease symptoms Patient denies exposure to infectious person. Patient denies travel to an Ebola-affected area in the 21 days before illness onset. No symptoms or risks identified at this time. Initial Sepsis Screen: Does the patient meet any 2 criteria? No. Patient's initial sepsis screen is negative. Does the patient have a suspected source of infection? No. Patient's initial sepsis screen is negative. Risk Assessment: Do you want to hurt yourself or someone else? Patient reports no desire to harm self or others. Onset of symptoms was March 13, 2024 at 08:00. 20:40 Method Of Arrival: Wheelchair bm8 20:40 Acuity: JUDIT 4 bm8 Triage Assessment: 20:41 General: Appears in no apparent distress. comfortable, Behavior is calm, cooperative, bm8 appropriate for age. Pain: Denies pain. : Humphreys in place pt states that it is leaking and his diaper is getting wet. white clumps noted in drainage tube. Historical: - Allergies: 20:41 NKDA; bm8 - Home Meds: 20:41 Unable to obtain [Active]; bm8 - PMHx: 20:41 Bladder cancer; COVID; Cancer; kidney CA; PROSTATE CA; Hypertension; bm8 - PSHx: 20:41 Bladder Reconstruction; Cholecystectomy; bm8 - Immunization history:: Adult Immunizations unknown. - Infectious Disease History:: Denies. - Social history:: Smoking status: Patient denies any tobacco usage or history of. Screenin:37 [facility] ED Fall Risk Assessment (Adult) History of falling in the last 3 months, ha1 including since admission No falls in past 3 months (0 pts) Confusion or Disorientation No (0 pts) Intoxicated or Sedated No (0 pts) Impaired Gait Yes (1 pt) Mobility Assist Device Used Yes (1 pt) Altered Elimination No (0 pt) Score/Fall Risk Level 3 or more points = High Risk Oriented to surroundings, Maintained a safe environment, Educated pt \T\ family on fall prevention, incl call for assistance when getting out of bed, Hourly rounding (assess needs \T\ fall precautionary measures) done. Abuse screen: Denies threats or abuse. Denies injuries from another. Nutritional screening: No deficits noted. Tuberculosis screening: No symptoms or risk factors identified. Assessment: 20:37 General: Appears uncomfortable, Behavior is calm, cooperative. Pain: Denies pain. ha1 Neuro: Level of Consciousness is awake, alert, obeys commands, Oriented to person, place, time, situation. Cardiovascular: Capillary refill < 3 seconds Patient's skin is warm and dry. Respiratory: Airway is patent Respiratory effort is even, unlabored, Respiratory pattern is regular, symmetrical. : Reports there is a leak around the tube of urinary catheter. Musculoskeletal: Circulation, motion, and sensation intact. 21:00 : Humphreys in place to gravity drainage clamped no drainage , no leak around catheter ha1 tube. Vital Signs: 20:40 BP 99 / 48; Pulse 55; Resp 16; Temp 97.9; Pulse Ox 99% ; Weight 63.96 kg; Height 5 ft. bm8 1 in. ; Pain 0/10; 22:02 BP 101 / 51; Pulse 57; Resp 17 S; Pulse Ox 99% on R/A; ha1 20:40 Body Mass Index 26.64 (63.96 kg, 154.94 cm) bm8 20:40 Pain Scale: Adult bm8 ED Course: 20:23 Patient arrived in ED. jj6 20:26 [facility]C [facility] kb 20:26 Jared Piedra MD is Attending Physician. kb 20:37 Patient has correct armband on for positive identification. Placed in gown. Bed in low ha1 position. Call light in reach. Side rails up X2. Adult w/ patient. 20:41 Triage completed. bm8 20:41 Arm band placed on right wrist. bm8 20:47 Nisha Hidalgo, RN is Primary Nurse. ha1 21:00 Provided Education on: Humphreys catheter care . ha1 21:05 Humphreys cath removed intact, balloon deflated. ha1 21:10 Humphreys cath inserted, using sterile technique, 16 Fr., by ms, balloon inflated, to ha1 gravity drainage. 22:01 No provider procedures requiring assistance completed. Patient did not have IV access ha1 during this emergency room visit. Administered Medications: No medications were administered Medication: 21:50 VIS not applicable for this client. ha1 Outcome: :50 Discharge ordered by . german 22:02 Discharged to home via wheelchair, with family, ha1 22:02 Condition: stable 22:02 Discharge instructions given to patient, family, Instructed on discharge instructions, follow up and referral plans. Demonstrated understanding of instructions, follow-up care, 22:03 Patient left the ED. ha1 Signatures: Karin Singleton, MANAGER OF PROGRAM-C MANAGER OF PROGRAM-CkRenée Bolton jj6 Nisha Hidalgo, RN RN ha1 Gonzales Sarkar, RN RN bm8
--- NOTE | 2024-03-13 21:50 | EDPHYS ---
Physician Documentation [facility] Name: Lisandro Livingston Age: 83 yrs Sex: Male : 1940 Arrival Date: 03/13/2024 Time: 20:21 Bed 15 Private MD: ED Physician Jared Piedra HPI: 03/13 21:49 This 83 yrs old Male presents to ER via Wheelchair with complaints of Problem kb With Urinary Catheter. 21:49 Pt is an 83 year old male who presents for leaking chinchilla catheter. States this catheter kb was placed yesterday and he has noticed his brief has been wet. Denies any other complaints. Historical: - Allergies: 20:41 NKDA; bm8 - Home Meds: 20:41 Unable to obtain [Active]; bm8 - PMHx: 20:41 Bladder cancer; COVID; Cancer; kidney CA; PROSTATE CA; Hypertension; bm8 - PSHx: 20:41 Bladder Reconstruction; Cholecystectomy; bm8 - Immunization history:: Adult Immunizations unknown. - Infectious Disease History:: Denies. - Social history:: Smoking status: Patient denies any tobacco usage or history of. ROS: 21:48 Constitutional: As per HPI kb Exam: 21:48 Constitutional: This is a well developed, well nourished patient who is awake, alert, kb and in no acute distress. Head/Face: Normocephalic, atraumatic. ENT: Moist Mucous membranes Cardiovascular: Regular rate Respiratory: Respirations even and unlabored. No increased work of breathing. Talking in full sentences Abdomen/GI: Soft, non-tender. No distention Skin: Warm, dry with normal turgor. Normal color. MS/ Extremity: Pulses equal, no cyanosis. Neurovascular intact. Full, normal range of motion. Neuro: Awake and alert, GCS 15, oriented to person, place, time, and situation. Moves all extremities. Normal gait. Vital Signs: 20:40 BP 99 / 48; Pulse 55; Resp 16; Temp 97.9; Pulse Ox 99% ; Weight 63.96 kg; Height 5 ft. bm8 1 in. ; Pain 0/10; 22:02 BP 101 / 51; Pulse 57; Resp 17 S; Pulse Ox 99% on R/A; ha1 20:40 Body Mass Index 26.64 (63.96 kg, 154.94 cm) bm8 20:40 Pain Scale: Adult bm8 MDM: 20:26 Patient medically screened. kb 21:48 Differential diagnosis: uti, chinchilla catheter malfunction. Data reviewed: vital signs, kb nurses notes. Historians other than the Patient: Daughter/Son: son. Counseling: I had a detailed discussion with the patient and/or guardian regarding the historical points, exam findings, and any diagnostic results supporting the discharge/admit diagnosis, the need for outpatient follow up, a urologist, to return to the emergency department if symptoms worsen or persist or if there are any questions or concerns that arise at home. 03/13 20:36 Order name: Chinchilla: exchange chinchilla; Complete Time: 21:16 kb Administered Medications: No medications were administered Disposition: 22:17 Co-signature as Attending Physician, Jared Piedra MD I reviewed the patient's care rt provided by the Advanced Practice Provider and agree with the diagnosis and treatment plan. Disposition Summary: 03/13/24 21:50 Discharge Ordered Notes: Location: Home kb Condition: Stable kb Diagnosis - Leakage of urinary (indwelling) catheter kb Followup: kb - With: Emergency Department - When: As needed - Reason: Worsening of condition Followup: kb - With: Private Physician - When: 2 - 3 days - Reason: Recheck today's complaints, Continuance of care, Re-evaluation by your physician Discharge Instructions: - Discharge Summary Sheet kb - Indwelling Urinary Catheter Care, Adult, [id number] kb Forms: - Medication Reconciliation Form kb - Antibiotic Education kb - Prescription Opioid Use kb - Patient Portal Instructions kb - Leadership Thank You Letter kb Signatures: Karin Singleton FNP-C FNP-Jared Dave MD MD rt Gonzales Sarkar, RN RN bm8
[2024-03-13 22:09] VITALS: TEMP 97.9; O2SAT 99
[2024-03-13 22:11] VITALS: BP 101/51
== END 2024-03-13 22:03 | disposition home or self-care (01) ==
LOC: ER 20:21
DX: T83.038A Leakage of other urinary catheter, initial encounter (principal)
CPT/HCPCS: 51702; 99284

== ENCOUNTER 2024-04-22 15:41 | Observation (INO) | payer OTHER ==
[2024-04-22 16:25] LABS: Absolute Eosinophils 0.1 K/uL (0-0.5); Absolute Monocytes 0.4 K/uL (0.1-1.3); Absolute Neutrophil 3.9 K/uL (1.8-8.0); Basophils % 0.8 % (0-1.3); Eosinophils % 2.3 % (0-4.4); Hematocrit 33.5 % (39.6-49.0); Lymphocytes % 19.1 % (15.3-44.8); MCH 28.7 pg (27.0-35.0); MPV 7.5 fL (7.6-11.3); Monocytes % 7.4 % (3.3-12.3); Neutrophils % 70.4 % (41.7-73.7); Platelets 169 thou/uL (152-406); RBC Red Blood Cell Count 3.85 M/uL (4.33-5.43); Red Cell Distribution Width 15.1 % (12.1-15.2)
[2024-04-22 16:27] LABS: Protime INR 1.17
[2024-04-22 16:39] LABS: Anion Gap 7.6 mEq/L (5.0-15.0); Potassium 4.6 mEq/L (3.5-5.1)
[2024-04-22 16:42] LABS: Troponin High Sensitivity 79.2 pg/mL (<58.9)
--- NOTE | 2024-04-22 16:43 | RAD REPORT ---
EXAMINATION: ONE VIEW CHEST XR CLINICAL INDICATION: CHEST PAIN TECHNIQUE: Frontal chest projection is submitted. Examination is limited by patient positioning and t echnique. COMPARISON: 02/25/2024 FINDINGS: Mild interstitial pulmonary edema. Mild atelectasis in the medial right lung base. The heart is moder ately enlarged in size. No displaced fractures identified. IMPRESSION: Mild CHF is possible.
[2024-04-22] MEDS ORDERED: ASPIRIN 81 MG CHEWABLE TABLET ONE (18:23)
--- NOTE | 2024-04-22 18:23 | EDPHYS ---
Physician Documentation [facility] Name: Lisandro Livingston Age: 83 yrs Sex: Male : 1940 Arrival Date: 04/22/2024 Time: 15:41 Bed 16 Private MD: ED Physician Candido Cook HPI: 04/22 16:20 This 83 yrs old Male presents to ER via Ambulatory with complaints of Chest ec2 Pain. 16:20 Patient arrives today for evaluation of possible chest pain. History of dementia, ec2 reportedly woke up with a bad dream and complained of chest pain however patient denies any chest pain at this time. No other concerns.. Historical: - Allergies: 16:07 NKDA; aa5 - PMHx: 16:07 Bladder cancer; Cancer; COVID; Hypertension; kidney CA; PROSTATE CA; aa5 - PSHx: 16:07 Bladder Reconstruction; Cholecystectomy; aa5 - Immunization history:: Adult Immunizations unknown. - Infectious Disease History:: Denies. - Social history:: Smoking status: Patient denies any tobacco usage or history of. ROS: 16:20 Constitutional: as per hpi ec2 Exam: 16:20 Constitutional: GEN: NAD Head: atraumatic Eyes: EOMI Ears: External ears are ec2 normal. CV: regular rate LUNGS: no respiratory distress ABD: non-distended SKIN: no evidence of rashes MSK: no evidence of trauma 18:49 ECG was reviewed by the Attending Physician. [facility] 18:51 ECG was reviewed by the Attending Physician. [facility] Vital Signs: 15:46 BP 130 / 48; Pulse 60; Resp 18 S; Temp 97.5(TE); Pulse Ox 97% on R/A; Weight 67.13 kg aa5 (R); Height 5 ft. 4 in. (R); 17:00 BP 127 / 59; Pulse 61; Resp 16 S; Pulse Ox 95% on R/A; aa5 18:00 BP 134 / 59; Pulse 60; Resp 18 S; Pulse Ox 96% on R/A; aa5 19:30 BP 121 / 91; Pulse 68; Resp 20; Pulse Ox 100% on R/A; kj2 22:20 BP 117 / 57; Pulse 64; Resp 18; Pulse Ox 94% on R/A; kj2 15:46 Body Mass Index 25.40 (67.13 kg, 162.56 cm) aa5 MDM: 15:46 Patient medically screened. ec2 16:00 ED course: EKG independently reviewed and interpreted by me, shows atrial fibrillation, ec2 rate of 60, no acute ST segment elevations, intervals are nonactionable.. 16:20 Data reviewed: vital signs. ED course: Patient arrives today for evaluation of possible ec2 chest pain. Examination remarkable for well-appearing nontoxic individuals otherwise in no acute distress with a reassuring examination. Will obtain lab work, chest x-ray. Differentials considered include processes such as ACS, PE, dissection . 16:46 ED course: Metabolic profile reassuring. CBC with slight anemia noted. Troponin at 79. ec2 Chest x-ray shows mild CHF. When compared to external records, patient with previous troponin and ranges of 80-90.. 16:46 ED course: I will obtain a repeat EKG and troponin at the 2-hour sendy.. ec2 17:48 ED course: Patient signed out pending repeat EKG and troponin.. ec2 04/22 15:46 Order name: Basic Metabolic Panel; Complete Time: 16:45 ec2 04/22 15:46 Order name: CBC with Diff; Complete Time: 16:45 ec2 04/22 15:46 Order name: PT-INR; Complete Time: 16:45 ec2 04/22 15:46 Order name: Troponin HS; Complete Time: 16:45 ec2 04/22 17:49 Order name: Troponin High Sensitivity: 630pm [facility] 04/22 18:08 Order name: Troponin High Sensitivity [facility] 04/22 19:34 Order name: Urinalysis w/ reflexes EDMS 04/22 19:34 Order name: CBC with Automated Diff EDMS 04/22 19:34 Order name: CBC with Automated Diff EDMS 04/22 19:34 Order name: Comprehensive Metabolic Panel EDMS 04/22 19:34 Order name: Comprehensive Metabolic Panel EDMS 04/22 19:34 Order name: Troponin High Sensitivity EDMS 04/22 19:34 Order name: Troponin High Sensitivity EDMS 04/22 19:34 Order name: Troponin High Sensitivity EDMS 04/22 19:34 Order name: Troponin High Sensitivity EDMS 04/22 15:46 Order name: XRAY Chest (1 view); Complete Time: 16:45 ec2 04/22 15:46 Order name: EKG; Complete Time: 15:46 ec2 04/22 17:49 Order name: EKG; Complete Time: 17:49 mahesh 04/22 19:33 Order name: CONS Physician Consult EDWY 04/22 15:46 Order name: Cardiac monitoring; Complete Time: 16:08 ec2 04/22 15:46 Order name: EKG - Nurse/Tech; Complete Time: 16:08 ec2 04/22 15:46 Order name: IV Saline Lock; Complete Time: 16:12 ec2 04/22 15:46 Order name: Labs collected and sent; Complete Time: 16:12 ec2 04/22 15:46 Order name: O2 Per Protocol; Complete Time: 16:08 ec2 04/22 15:46 Order name: O2 Sat Monitoring; Complete Time: 16:08 ec2 04/22 16:46 Order name: Misc. Order: repeat ekg/trop at 1830; Complete Time: 18:40 ec2 04/22 17:49 Order name: EKG - Nurse/Tech: 630pm; Complete Time: 18:40 mahesh EC:49 Rate is 61 beats/min. Rhythm is regular. QRS Perrin is Normal. VT interval is prolonged mahesh at 216 msec. QRS interval is normal. QT interval is normal. No Q waves. T waves are Normal. No ST changes noted. Clinical impression: NSR w/ Non-specific ST/T Changes, 1st degree heart block, and No evidence of ischemia. Interpreted by me. Reviewed by me. 18:51 Rate is 60 beats/min. Rhythm is irregular. QRS Perrin is Normal. VT interval is normal. mahesh QRS interval is normal. QT interval is normal. No Q waves. T waves are Normal. No ST changes noted. Clinical impression: Abnormal EKG without significant change and No evidence of ischemia. Interpreted by me. Reviewed by me. Administered Medications: 18:40 Drug: Aspirin PO Chewable Tablet 81 mg PO once Route: PO; aa5 19:31 Follow up: Response: No adverse reaction kj2 Disposition Summary: 04/22/24 18:22 Hospitalization Ordered Notes: Hospitalization Status: Observation mahesh Provider: Maurizio Cr cha Location: Telemetry/MedSurg (observation) mahesh Condition: Fair mahesh Problem: new mahesh Symptoms: have improved mahesh Bed/Room Type: Standard mahesh Room Assignment: 222(04/22/24 20:03) Diagnosis - Chest pain, unspecified mahesh - Chronic combined systolic (congestive) and diastolic (congestive) heart failure mahesh - Malignant neoplasm of left kidney, except renal pelvis mahesh Discharge Instructions: - Discharge Summary Sheet ec2 - Nonspecific Chest Pain, Adult ec2 Forms: - Medication Reconciliation Form mahesh - SBAR form mahesh - Leadership Thank You Letter [facility] Signatures: Dispatcher [employer] Candido Barnes MD MD cha Calderon, Audri, RN RN aa5 Isamar Livingston RN RN Efrain Soto MD MD ec2 Vivian Bowie RN kj2 Corrections: (The following items were deleted from the chart) 15:46 15:46 BASIC METABOLIC PANEL+C.LAB.BRZ ordered. EDMS EDMS 15:46 15:46 CBC+H.LAB.BRZ ordered. EDMS EDMS 15:46 15:46 PROTIME (+INR)+COAG.LAB.BRZ ordered. EDMS EDMS 15:46 15:46 Troponin High Sensitivity+C.LAB.BRZ ordered. EDMS EDMS 18:08 18:08 Troponin High Sensitivity+C.LAB.BRZ ordered. EDMS EDMS 20:03 18:22 [facility]
--- NOTE | 2024-04-22 18:23 | ER ---
Nurse's Notes [facility] Name: Lisandro Livingston Age: 83 yrs Sex: Male : 1940 Arrival Date: 04/22/2024 Time: 15:41 Bed 16 Private MD: Diagnosis: Chest pain, unspecified;Chronic combined systolic (congestive) and diastolic (congestive) heart failure;Malignant neoplasm of left kidney, except renal pelvis Presentation: 04/22 15:46 Chief complaint: Patient states: had a bad dream and woke up scared, pt's son reports aa5 pt reported chest pain, currently denies chest pain. Pt's son reports pt was cleared by cardiology for surgery approximately 2 weeks ago, pt's son states "he is having a mass removed". 15:46 Method Of Arrival: Ambulatory aa5 15:46 Coronavirus screen: At this time, the client does not indicate any symptoms associated aa5 with coronavirus-19. Ebola Screen: Patient denies travel to an Ebola-affected area in the 21 days before illness onset. Initial Sepsis Screen: Does the patient meet any 2 criteria? No. Patient's initial sepsis screen is negative. Does the patient have a suspected source of infection? No. Patient's initial sepsis screen is negative. Risk Assessment: Do you want to hurt yourself or someone else? Patient reports no desire to harm self or others. Onset of symptoms was April 22, 2024. 15:46 Acuity: JUDIT 3 aa5 Historical: - Allergies: 16:07 NKDA; aa5 - PMHx: 16:07 Bladder cancer; Cancer; COVID; Hypertension; kidney CA; PROSTATE CA; aa5 - PSHx: 16:07 Bladder Reconstruction; Cholecystectomy; aa5 - Immunization history:: Adult Immunizations unknown. - Infectious Disease History:: Denies. - Social history:: Smoking status: Patient denies any tobacco usage or history of. Screenin:08 [facility] ED Fall Risk Assessment (Adult) History of falling in the last 3 months, aa5 including since admission Yes- single mechanical fall (1 pt) Confusion or Disorientation Yes (5 pts) Intoxicated or Sedated No (0 pts) Impaired Gait Yes (1 pt) Mobility Assist Device Used Yes (1 pt) Altered Elimination No (0 pt) Score/Fall Risk Level 3 or more points = High Risk Oriented to surroundings, Maintained a safe environment, Educated pt \\T\\ family on fall prevention, incl call for assistance when getting out of bed, Hourly rounding (assess needs \\T\\ fall precautionary measures) done. Abuse screen: No signs of abuse noted. Nutritional screening: No deficits noted. Tuberculosis screening: No symptoms or risk factors identified. Assessment: 15:46 General: Appears comfortable, Behavior is calm, cooperative. Pain: Denies pain. Neuro: aa5 Level of Consciousness is awake, alert, obeys commands, Oriented to person, place, situation. Cardiovascular: Heart tones S1 S2 present Rhythm is regular. Respiratory: Airway is patent Respiratory effort is even, unlabored, Respiratory pattern is regular, symmetrical. GI: Abdomen is round non-distended, Bowel sounds present X 4 quads. Abd is soft and non tender X 4 quads. : Humphreys in place to gravity drainage. EENT: No signs and/or symptoms were reported regarding the EENT system. Derm: Skin is pink, warm \\T\\ dry. Musculoskeletal: Range of motion: intact in all extremities. 16:17 Reassessment: X-ray at bedside . aa5 17:00 Reassessment: Pt sleeping. Pt's son and at bedside. . aa5 18:00 Reassessment: Patient is alert, oriented x 3, equal unlabored respirations, skin aa5 warm/dry/pink. Patient denies pain at this time. 18:40 Reassessment: Patient is alert, oriented x 3, equal unlabored respirations, skin aa5 warm/dry/pink. Patient denies pain at this time. 19:29 Reassessment: Patient appears in no apparent distress at this time. Patient and/or kj2 family updated on plan of care and expected duration. Pain level reassessed. Patient is alert, oriented x 3, equal unlabored respirations, skin warm/dry/pink. 19:30 Reassessment: report received from FAVIOLA Short. kj2 20:30 Reassessment: Patient appears in no apparent distress at this time. Patient and/or kj2 family updated on plan of care and expected duration. Pain level reassessed. Patient is alert, oriented x 3, equal unlabored respirations, skin warm/dry/pink. 21:50 Reassessment: report sheet faxed and received. ha1 22:20 Reassessment: Patient appears in no apparent distress at this time. Patient and/or kj2 family updated on plan of care and expected duration. Pain level reassessed. Patient is alert, oriented x 3, equal unlabored respirations, skin warm/dry/pink. 23:11 Pain: Pain does not radiate. kj2 23:12 Pain: Pain began 1 hour prior to arrival. kj2 Vital Signs: 15:46 BP 130 / 48; Pulse 60; Resp 18 S; Temp 97.5(TE); Pulse Ox 97% on R/A; Weight 67.13 kg aa5 (R); Height 5 ft. 4 in. (R); 17:00 BP 127 / 59; Pulse 61; Resp 16 S; Pulse Ox 95% on R/A; aa5 18:00 BP 134 / 59; Pulse 60; Resp 18 S; Pulse Ox 96% on R/A; aa5 19:30 BP 121 / 91; Pulse 68; Resp 20; Pulse Ox 100% on R/A; kj2 22:20 BP 117 / 57; Pulse 64; Resp 18; Pulse Ox 94% on R/A; kj2 15:46 Body Mass Index 25.40 (67.13 kg, 162.56 cm) aa5 ED Course: 15:45 Patient arrived in ED. im 15:46 Efrain Soto MD is Attending Physician. ec2 15:46 Arm band placed on. aa5 15:46 Patient has correct armband on for positive identification. Placed in gown. Bed in low aa5 position. Call light in reach. Side rails up X2. Adult w/ patient. Client placed on continuous cardiac and pulse oximetry monitoring. NIBP monitoring applied. bus driver/monitor on. Pulse ox on. NIBP on. 16:05 Emily Gunderson, RN is Primary Nurse. aa5 16:07 Triage completed. aa5 16:11 No provider procedures requiring assistance completed. Patient maintains SpO2 aa5 saturation greater than 95% on room air. 16:12 Initial lab(s) drawn, by ED staff, sent to lab. Inserted saline lock: 20 gauge in right aa5 antecubital area, using aseptic technique. Blood collected. Flushed with 10 mL NS. 16:25 XRAY Chest (1 view) In Process Unspecified. EDMS 17:49 Attending Physician role handed off by Efrain Soto MD ec2 17:49 Candido Cook MD is Attending Physician. ec2 18:16 Maurizio Cr MD is Hospitalizing Provider. [facility] 19:00 Report given to FAVIOLA Park. aa5 20:00 Provided Education on: call light. kj2 23:12 Patient admitted, IV remains in place. kj2 Administered Medications: 18:40 Drug: Aspirin PO Chewable Tablet 81 mg PO once Route: PO; aa5 19:31 Follow up: Response: No adverse reaction kj2 Medication: 16:11 VIS not applicable for this client. aa5 Outcome: 18:22 Decision to Hospitalize by Provider. [facility] 23:11 Admitted to Med/surg accompanied by nurse, via wheelchair, room 222, kj2 23:11 Condition: stable 23:11 Instructed on the need for admit, 23:13 Patient left the ED. kj2 Signatures: Dispatcher [employer] EDCandido Willis MD MD cha Calderon, Audri, RN RN aa5 Nisha Hidalgo RN RN 1 Nella Whittaker Efrain Soto MD MD 2 Vivian Bowie, FAVIOLA RN kj2 Corrections: (The following items were deleted from the chart) 16:07 15:46 Chief complaint: Patient states: had a bad dream and woke up scared, pt's son aa5 reports pt reported chest pain, currently denies chest pain. aa5
[2024-04-22] MEDS ORDERED: ONDANSETRON 4 MG/2 ML VIAL IV PRN (19:29)
--- NOTE | 2024-04-22 19:29 | P.HP ---
Certification for Inpatient Patient admitted to: Observation With expected LOS: <2 Midnights Practitioner: I am a practitioner with admitting privileges, knowledge of patient current condition, hospital course, and medical plan of care. Services: Services provided to patient in accordance with Admission requirements found in Title 42 Section 412.3 of the Code of Federal Regulations Patient History Date of Service: 04/23/24 Reason for admission: Generalized weakness History of Present Illness: 83 yrs old Male with past medical history of Bladder cancer; Cancer; COVID; Hypertension; kidney CA; PROSTATE CA, s/p Bladder Reconstruction presents with complaints of Chest Pain. Patient arrives today for evaluation of possible chest pain. History of dementia,reportedly woke up with a bad dream and complained of chest pain however patient denies any chest pain at this time. No other concerns.. Allergies No Known Allergies Allergy (Unverified 05/27/19 08:15) Home medications list reviewed: Yes Home Medications: Gabapentin 300 mg PO TID 07/09/20 Tamsulosin [Flomax*] 0.8 mg PO BEDTIME #60 cap 09/07/23 Atorvastatin Calcium [Lipitor*] 40 mg PO BEDTIME 04/22/24 Docusate Sodium 100 mg PO DAILY 04/22/24 - Past Medical/Surgical History Diabetic: No Past Medical History: Reviewed- Non-Contributory -: Chronic renal disease -: Bladder Cancer, [facility]-Dr. Antolin Valera -: Varicose veins -: HTN -: Depression with anxiety -: Nicotine dependence -: Possible kidney cancer necrotic mass in the right kidney -: Siegel virus pneumonia -: Prostate cancer -: Pneumonia Past Surgical History: Reviewed- Non-Contributory -: Ryan Cataracts sx -: Bladder reconstruction -: Bladder surgery -: Vascular surgery and is left calf Psychosocial/ Personal History: . 5 children - Family History Family History: Reviewed- Non-Contributory - Family History Mother -: Lung disease, Diabetes Father -: Hypertension, Lung disease, Diabetes - Social History Smoking Status: Never smoker Alcohol use: No CD- Drugs: No Caffeine use: No Review of Systems 10-point ROS is otherwise unremarkable Physical Examination - Vital Signs Temperature: 97.4 F Blood Pressure: 126/56 Pulse: 62 Respirations: 16 Pulse Ox (%): 94 - Physical Exam General: Alert, In no apparent distress HEENT: Atraumatic, Normocephalic Neck: Supple Respiratory: Clear to auscultation bilaterally, Normal air movement Cardiovascular: Normal pulses, Regular rate/rhythm, Normal S1 S2 Capillary refill: <2 Seconds Gastrointestinal: Soft and benign, W/out hepatosplenomegaly Musculoskeletal: No clubbing, No swelling Integumentary: No rashes Neurological: Normal speech, Normal strength at 5/5 x4 extr, Cranial nerves 3-12 intact, Dementia Lymphatics: No axilla or inguinal lymphadenopathy - Studies Laboratory Data (last 24 hrs) 04/22/24 04/22/24 04/22/24 16:13 16:13 16:13 WBC 5.50 Hgb 11.0 L Hct 33.5 L Plt Count 169 PT 13.0 H INR 1.17 Sodium 136 Potassium 4.6 BUN 36 H Creatinine 1.19 Glucose 115 H Assessment and Plan - Plan NSTEMI Will trend cardiac enzymes Will monitor telemetry Started on aspirin and statin Patient denies any chest pain Will get an echocardiogram Cardiology consult UTI Started on IV antibiotics Will get culture Change antibiotics as per sensitivity Bladder cancer Prostate Cancer s/p Bladder Reconstruction Hypertension Antihypertensives titrated Continue home medications and titrate as needed Hyperlipidemia Continue statin GI/DVT prophylaxis Advanced directive full code Discharge Plan: Home Plan to discharge in: 48 Hours - Advance Directives Does patient have a Living Will: No Does patient have a Durable POA for Healthcare: No - Code Status/Comfort Care Code Status: Full Code Time Spent Managing Pts Care (In Minutes): 48
[2024-04-23 00:52] LABS: Specific Gravity 1.013 (1.005-1.030); Sqamous Epithelial None Seen /HPF (None Seen); Urine Bacteria <20 /HPF (<20); Urine Bilirubin NEGATIVE (Negative); Urine Blood 2+ (Negative); Urine Clarity Extremely Turbid (Clear); Urine Color Light-Yellow (Yellow); Urine Culture Reflex Order REFLEXED; Urine Glucose NEGATIVE (Negative); Urine Ketones NEGATIVE (Negative); Urine Microscopic Reflex YN ORDER UMIC; Urine Mucus Slight /HPF (None Seen); Urine Nitrite NEGATIVE (Negative); Urine Protein 1+ (Negative); Urine RBC 21-50 /HPF (None Seen); Urine Urobilinogen Normal (Normal); Urine WBC >50 /HPF (<5); Urine WBC Clump Rare /HPF (None Seen); Urine pH 6.5 (5.0-7.0)
[2024-04-23] MEDS: ACETAMINOPHEN 325 MG TABLET PO PRN (01:12)
[2024-04-23] MEDS: carvediloL 3.125 MG TAB PO SCH (02:05)
[2024-04-23 02:19] VITALS: BMI 25.4
[2024-04-23 07:30] LABS: Absolute Eosinophils 0.1 K/uL (0-0.5); Absolute Monocytes 0.4 K/uL (0.1-1.3); Absolute Neutrophil 3.4 K/uL (1.8-8.0); Basophils % 0.4 % (0-1.3); Eosinophils % 2.5 % (0-4.4); Hematocrit 33.2 % (39.6-49.0); Lymphocytes % 20.8 % (15.3-44.8); MCH 28.7 pg (27.0-35.0); MCV 86.7 fL (80-100); MPV 7.7 fL (7.6-11.3); Monocytes % 7.3 % (3.3-12.3); Platelets 163 thou/uL (152-406); RBC Red Blood Cell Count 3.82 M/uL (4.33-5.43); Red Cell Distribution Width 15.3 % (12.1-15.2)
[2024-04-23 07:39] LABS: Albumin 2.7 g/dL (3.4-5.0); Albumin/Globulin Ratio 0.8 (1.1-1.8); Anion Gap 7.2 mEq/L (5.0-15.0); Bilirubin Total 0.5 mg/dL (0.2-1.0); Globulin 3.5 g/dL (2.3-3.5); Potassium 4.2 mEq/L (3.5-5.1); Protein, Total 6.2 g/dL (6.4-8.2)
[2024-04-23] MEDS: ENOXAPARIN 40 MG/0.4 ML SQ SCH (08:54)
[2024-04-23] MEDS: CEFTRIAXONE 1,000 MG in NA CHLORIDE 0.9% 50 ML IVPB SCH (08:54)
[2024-04-23] MEDS: ASPIRIN EC 81 MG TAB PO SCH (08:54)
[2024-04-23] MEDS: DOCUSATE NA 100 MG CAP PO SCH (08:54)
[2024-04-23] MEDS: GABAPENTIN 300 MG CAP PO SCH (08:54)
[2024-04-23 09:26] VITALS: O2SAT 100
[2024-04-23] MEDS: INFLUENZA VACCINE (for 6+ mo) 0.5 ML DOSE IMVAC ONE (09:43)
[2024-04-23] MEDS: PNEUMOCOCCAL VACCINE 0.5 ML IMVAC ONE (09:43)
--- NOTE | 2024-04-23 16:02 | P.DS ---
Admission Date: 04/22/24 Discharge Date: 04/23/24 Disposition: ROUTINE DISCHARGE Discharge Condition: FAIR Reason for Admission: Generalized weakness - Problems (1) History of prostate cancer Current Visit: Yes Status: Acute (2) History of lung cancer Current Visit: Yes Status: Acute (3) Chest pain Current Visit: No Status: Active (4) History of bladder cancer Current Visit: No Status: Acute (5) History of urinary retention Current Visit: No Status: Acute (6) Urinary retention Current Visit: No Status: Acute (7) HTN (hypertension) Onset Date: 12/13/15 Current Visit: No Status: Chronic Qualifiers: Hypertension type: essential hypertension Qualified Code(s): I10 - Essential (primary) hypertension Brief History of Present Illness: 83 yrs old Male with past medical history of Bladder cancer; Cancer; COVID; Hypertension; kidney CA; PROSTATE CA, s/p Bladder Reconstruction, lung mass suspected to be metastasis, skin cancer presented presented to the emergency department with chest pain after waking up from a nightmare. Patient was chest pain-free on arrival to the ED. Initial troponin mildly elevated to 79. Initial EKG showed atrial fibrillation, no ischemic changes. Chest x-ray showed no acute disease. Patient was hospitalized for elevated troponin. Hospital Course: Patient was placed under observation on the medical floor. Troponin trended relatively flat. Patient was asymptomatic during the hospital stay. He requested to go home. Case discussed with cardiology Dr. Nice who recommended medical management for coronary artery disease for now given patient's poor prognosis with regards to multi-organ malignancies with distant metastasis. I had a conversation with patient's son who mentioned patient is undergoing preop evaluation for lung tumor resection and follows up with cardiology and [facility]. Patient had a stress test in September 2023 which did not show any reversible ischemia. Patient has some want all preop evaluations to all care at [facility]. Son mentioned patient has an appointment on Thursday04/29/2024 to continue preop evaluation and assessments. Patient vitals have been stable, he has been asymptomatic since presentation. He is discharged with Plavix and Coreg to take alongside his home dose aspirin and Lipitor and impressed upon him to follow-up as scheduled for preop assessments which may include stress test or cardiac catheterization as his residential air sealing technician deems fit. Vital Signs/Physical Exam: Temp Pulse Resp BP Pulse Ox 97.4 F 62 18 141/57 H 98 04/23/24 12:00 04/23/24 12:00 04/23/24 12:00 04/23/24 12:00 04/23/24 12:00 General: Alert, In no apparent distress, Oriented x3 HEENT: Mucous membr. moist/pink Neck: Supple, JVD not distended Respiratory: Clear to auscultation bilaterally, Normal air movement Cardiovascular: No edema, Regular rate/rhythm, Normal S1 S2 Gastrointestinal: Normal bowel sounds, Soft and benign, Non-distended, No tenderness Musculoskeletal: No swelling Integumentary: No rashes, No cyanosis Neurological: Normal strength at 5/5 x4 extr Laboratory Data at Discharge: WBC 4.90 thou/uL (4.3-10.9) 04/23/24 06:48 Hgb 11.0 g/dL (13.6-17.9) L 04/23/24 06:48 Hct 33.2 % (39.6-49.0) L 04/23/24 06:48 Plt Count 163 thou/uL (152-406) 04/23/24 06:48 PT 13.0 SECONDS (9.4-12.5) H 04/22/24 16:13 INR 1.17 04/22/24 16:13 Sodium 136 mEq/L (136-145) 04/23/24 06:48 Potassium 4.2 mEq/L (3.5-5.1) 04/23/24 06:48 BUN 36 mg/dL (7-18) H 04/23/24 06:48 Creatinine 0.94 mg/dL (0.70-1.30) 04/23/24 06:48 Glucose 94 mg/dL (74-106) 04/23/24 06:48 Total Bilirubin 0.5 mg/dL (0.2-1.0) 04/23/24 06:48 AST 22 U/L (15-37) 04/23/24 06:48 ALT 22 U/L (16-61) 04/23/24 06:48 Alkaline Phosphatase 147 U/L (45-117) H 04/23/24 06:48 Home Medications: Gabapentin 300 mg PO TID 07/09/20 Tamsulosin [Flomax*] 0.8 mg PO BEDTIME #60 cap 09/07/23 Atorvastatin Calcium [Lipitor*] 40 mg PO BEDTIME 04/22/24 Docusate Sodium 100 mg PO DAILY 04/22/24 Clopidogrel Bisulfate [Plavix] 75 mg PO DAILY #30 tab 04/23/24 carvediloL [Coreg*] 3.125 mg PO BID 6AM 6PM #60 tab 04/23/24 New Medications: carvediloL [Coreg*] 3.125 mg PO BID 6AM 6PM #60 tab Clopidogrel Bisulfate [Plavix] 75 mg PO DAILY #30 tab Diet: AHA Activity: Fall precautions Followup: Donte Rosas MD [Primary Care Provider] - 1 Week Time spent managing pt's care (in minutes): 36
[2024-04-23 16:31] VITALS: BP 145/53; TEMP 97.9
[2024-04-23] MEDS ORDERED: ATORVASTATIN 20 MG TAB PO SCH (21:00)
[2024-04-23] MEDS ORDERED: TAMSULOSIN 0.4 MG SR CAP PO SCH (21:00)
--- NOTE | 2024-04-25 11:59 | EKG ---
Test Date: 2024-04-22 Test Time: 18:31:42 Professor Of Sport Management: GER MEASUREMENT RESULTS: Intervals: Rate: 61 NH: 216 QRSD: 84 QT: 416 QTc: 418 [place]: P: 53 NH: 216 QRS: 30 T: 41 INTERPRETIVE STATEMENTS: Sinus rhythm with 1st degree AV block Otherwise normal ECG Compared to ECG 04/22/2024 15:54:24 First degree AV block now present Atrial fibrillation no longer present Electronically Signed On 04-25-24 11:54:15 CDT by Corby Montiel
--- NOTE | 2024-04-25 12:00 | EKG ---
Test Date: 2024-04-22 Test Time: 15:54:24 Meal Attendant: CAROLYNE MEASUREMENT RESULTS: Intervals: Rate: 60 HI: QRSD: 82 QT: 398 QTc: 398 [place]: P: HI: QRS: 25 T: 45 INTERPRETIVE STATEMENTS: Atrial fibrillation Abnormal ECG Compared to ECG 02/25/2024 18:47:14 Sinus bradycardia no longer present First degree AV block no longer present Electronically Signed On 04-25-24 11:54:52 CDT by Corby Montiel
== END 2024-04-23 16:54 | disposition home or self-care (01) ==
LOC: ER 15:41 → ERHOLD 19:29 → INTOOBSV 19:29 → 2ND 21:49
PROVIDERS: ADMIT Family Medicine; ATTEND Internal Medicine
DX: I21.4 Non-ST elevation (NSTEMI) myocardial infarction (principal); I50.42 Chronic combined systolic (congestive) and diastolic (congestive) heart failure; R07.9 Chest pain, unspecified; R53.1 Weakness; N39.0 Urinary tract infection, site not specified; I10 Essential (primary) hypertension; R33.9 Retention of urine, unspecified; E78.5 Hyperlipidemia, unspecified; Z85.46 Personal history of malignant neoplasm of prostate; Z85.118 Personal history of other malignant neoplasm of bronchus and lung; Z85.51 Personal history of malignant neoplasm of bladder; Z86.16 Personal history of COVID-19; Z85.528 Personal history of other malignant neoplasm of kidney; F03.90 Unspecified dementia, unspecified severity, without behavioral disturbance, psychotic disturbance, mood disturbance, and anxiety
CPT/HCPCS: 87088; 85025 ×2; 81001; 87086; 80048; 36415; 85610; 84484 ×4; 80053; 83880; 71045; 94760; 99285; J1650; J0696; G0378 ×4; 87077; 87186; 93005

== ENCOUNTER 2024-05-03 19:06 | Inpatient (IN) | payer OTHER ==
--- NOTE | 2024-05-03 19:59 | RAD REPORT ---
EXAMINATION: ONE VIEW CHEST XR CLINICAL INDICATION: Male, 83 years old.,SWELLING TECHNIQUE: Frontal chest projection is submitted. Examination is limited by patient positioning and t echnique. COMPARISON: 04/22/2024 FINDINGS: The lungs are somewhat suboptimally inflated which limits evaluation. Small confluent opacity medial right base, may relate to superimposition of vessels versus early airspace disease. No pneumothorax or sizable effusion. The heart is mildly prominent in size. Tortuosity of the thoracic a tj again seen. IMPRESSION: Small confluent opacity medial right base, may relate to superimposition of vessels versu s airspace disease.
[2024-05-03 20:03] LABS: Absolute Basophils 0.1 K/uL (0-0.5); Absolute Eosinophils 0.2 K/uL (0-0.5); Absolute Monocytes 0.5 K/uL (0.1-1.3); Absolute Neutrophil 4.7 K/uL (1.8-8.0); Basophils % 0.8 % (0-1.3); Eosinophils % 2.5 % (0-4.4); Hematocrit 33.5 % (39.6-49.0); Hemoglobin 11.4 g/dL (13.6-17.9); Lymphocytes % 15.5 % (15.3-44.8); MCH 29.3 pg (27.0-35.0); MCHC 33.9 g/dL (32.0-36.0); MCV 86.3 fL (80-100); MPV 7.1 fL (7.6-11.3); Monocytes % 7.6 % (3.3-12.3); Neutrophils % 73.6 % (41.7-73.7); Platelets 205 thou/uL (152-406); RBC Red Blood Cell Count 3.89 M/uL (4.33-5.43)
[2024-05-03 20:07] LABS: Protime INR 1.07
[2024-05-03 20:25] LABS: Anion Gap 9.4 mEq/L (5.0-15.0); Magnesium 1.9 mg/dL (1.6-2.4); Potassium 4.4 mEq/L (3.5-5.1)
[2024-05-03 20:29] LABS: Troponin High Sensitivity 97.5 pg/mL (<58.9)
--- NOTE | 2024-05-03 22:18 | RAD REPORT ---
EXAMINATION: US Lower Extremity Arterial Bilat CLINICAL INDICATION: Male, 83 years old. [facility] Bed Name: 26 TECHNIQUE: Arterial duplex ultrasound of the bilateral lower extremities, with real-time, duplex, and spectral flow Doppler evaluation. COMPARISON: 12/09/2016 FINDINGS: Grayscale: Up to moderate bilateral atherosclerotic plaque. Right lower extremity: Triphasic waveforms seen along the common femoral, superficial femoral, and popliteal arteries. Monop hasic waveforms are seen along the posterior tibial and dorsalis pedis arteries. Left lower extremity: Triphasic waveforms seen along the common femoral, superficial femoral, and popliteal arteries. Monop hasic waveforms are seen along the posterior tibial and dorsalis pedis arteries. IMPRESSION: Moderate bilateral symmetric peripheral vascular disease as above.
--- NOTE | 2024-05-03 22:20 | RAD REPORT ---
EXAMINATION: Extrem Venous W Compress Ryan CLINICAL INDICATION: Swelling TECHNIQUE: Complete bilateral duplex sonography of the BILATERAL lower extremity veins was performed. The examination included compression for vein patency, color Doppler imaging and flow augmentation in response to distal compression of the distal external iliac, common femoral, femoral, popliteal, t ibial, and great and small saphenous veins. COMPARISON: No prior exam. FINDINGS: Duplex sonography testing of the veins of the BILATERAL lower extremity was performed. Color flow maciej ging shows all veins to be compressible with [id number] color filling. Pulsatile and phasic flow is present within all lower extremity deep and superficial veins examined. IMPRESSION: There is no deep vein or superficial vein thrombosis.
--- NOTE | 2024-05-03 22:37 | ER ---
Nurse's Notes [facility] Name: Lisandro Livingston Age: 83 yrs Sex: Male : 1940 Arrival Date: 05/03/2024 Time: 19:06 Bed 17 Private MD: Diagnosis: Edema, unspecified;Elevated troponin Presentation: 05/03 19:22 Chief complaint: Patient states: Pt arrived to the ED, sitting in the ER wheelchair kd3 accompanied by family members. Patient has bilateral feet swelling that reportedly started yesterday. Patient reportedly had an appointment on Thursday with his oncology doctor but there was no swelling to the feet at that time. patient reports burning feeling to the bilateral feet. Provider has seen the patient in triage. 19:33 Coronavirus screen: unknown. Ebola Screen: No symptoms or risks identified at this kd3 time. Initial Sepsis Screen: Does the patient meet any 2 criteria? No. Patient's initial sepsis screen is negative. Does the patient have a suspected source of infection? No. Patient's initial sepsis screen is negative. Risk Assessment: Do you want to hurt yourself or someone else? Patient reports no desire to harm self or others. Onset of symptoms was May 03, 2024. 19:33 Method Of Arrival: Wheelchair kd3 19:33 Acuity: JUDIT 3 kd3 Triage Assessment: 19:34 General: Appears in no apparent distress. Behavior is calm, cooperative. Pain: kd3 Complains of pain in right foot and left foot. Historical: - Allergies: 19:34 NKDA; kd3 - PMHx: 19:34 Bladder cancer; Cancer; Hypertension; kidney CA; PROSTATE CA; COVID; kd3 - PSHx: 19:34 Bladder Reconstruction; Cholecystectomy; kd3 - Immunization history:: Adult Immunizations up to date. - Infectious Disease History:: Denies. - Social history:: Smoking status: unknown. Screenin:36 [facility] ED Fall Risk Assessment (Adult) History of falling in the last 3 months, ar6 including since admission No falls in past 3 months (0 pts) Confusion or Disorientation No (0 pts) Intoxicated or Sedated No (0 pts) Impaired Gait Yes (1 pt) Mobility Assist Device Used Yes (1 pt) Altered Elimination No (0 pt) Score/Fall Risk Level 0 - 2 = Low Risk Oriented to surroundings, Maintained a safe environment, Educated pt \T\ family on fall prevention, incl call for assistance when getting out of bed, Hourly rounding (assess needs \T\ fall precautionary measures) done. Abuse screen: Denies threats or abuse. Denies injuries from another. Nutritional screening: No deficits noted. Tuberculosis screening: No symptoms or risk factors identified. Assessment: 19:36 General: Appears in no apparent distress. uncomfortable, Behavior is calm, cooperative, ar6 appropriate for age. Pain: Complains of pain in right foot, left foot, right leg and left leg Quality of pain is described as burning. Neuro: Level of Consciousness is awake, alert, obeys commands, Oriented to person, place, time, situation. Cardiovascular: Capillary refill < 3 seconds. Respiratory: Airway is patent. GI: Abdomen is round non-distended. : Urine is cloudy, chinchilla catheter in place upon arrival; pt. family reports pt. has a kidney stone to right kidney. EENT: Oral mucosa is moist. Derm: Skin is intact, is healthy with good turgor, Skin is dry, Skin is pink, warm \T\ dry. swelling to BLE around feet and digits. Musculoskeletal: Amputation of right foot. Swelling present in right foot, left foot and left leg. 20:35 Reassessment: critical lab troponin reported to MIKE Frazier; no orders at this time. ar6 23:24 General: Patient moved to hospital bed and placed in a gown. 500 cc urine emptied from kd3 the catheter bag. . Vital Signs: 19:33 BP 108 / 50; Pulse 74; Resp 16; Temp 98.2(TE); Pulse Ox 96% on R/A; kd3 19:36 BP 152 / 60; Pulse 70; Resp 18; Temp 98.6; Pulse Ox 99% on R/A; Weight 67.13 kg; Height ar6 5 ft. 7 in. ; 21:12 BP 137 / 55; Pulse 68; Resp 18; Pulse Ox 99% on R/A; ar6 23:26 BP 156 / 75; Pulse 71; Resp 19; Pulse Ox 99% on R/A; kd3 19:36 Body Mass Index 23.18 (67.13 kg, 170.18 cm) ar6 ED Course: 19:08 Patient arrived in ED. ra3 19:11 Soto, Efrain, MD is Attending Physician. ec2 19:15 Karin Singleton FNP-C is [facility]. kb 19:31 Nola Hernandez, RN is Primary Nurse. ar6 19:34 Triage completed. kd3 19:34 Arm band placed on right wrist. kd3 19:36 No apparent distress. Awaiting radiology results. ar6 19:36 Patient has correct armband on for positive identification. Bed in low position. Call ar6 light in reach. Side rails up X 1. Provided Education on: plan of care. Client placed on continuous cardiac and pulse oximetry monitoring. NIBP monitoring applied. Door closed. Lights dimmed. Moved to private room. Warm blanket given. 19:36 No provider procedures requiring assistance completed. ar6 19:42 Chest Single View XRAY In Process Unspecified. EDMS 19:45 Inserted saline lock: 22 gauge in right antecubital area, using aseptic technique. ar6 Blood collected. Flushed with 10 mL NS. 19:54 CBC with Diff Sent. ar6 19:54 Magnesium Sent. ar6 19:54 NT PRO-BNP Sent. ar6 19:54 PT-INR Sent. ar6 19:54 Troponin HS Sent. ar6 19:54 Basic Metabolic Panel Sent. ar6 19:56 EKG done, by ED staff, reviewed by Karin QUINTANILLA. oe 20:30 Notified ED physician of a critical lab result(s). troponin to MIKE Frazier. ar6 20:32 US Extremity Venous W Compression Ryan In Process Unspecified. EDMS 20:32 Lower Extremity Arterial Bilat US In Process Unspecified. EDMS 22:36 Maurizio Cr MD is Hospitalizing Provider. kb 22:40 Birgit Lomas, FAVILOA is Primary Nurse. kd3 05/04 07:39 Patient admitted, IV remains in place. mb9 Administered Medications: 05/03 22:51 Drug: Furosemide IVP 20 mg IVP once; give over 2 minutes Route: IVP; Site: right kd3 antecubital; 23:27 Follow up: Response: No adverse reaction kd3 Medication: 19:36 VIS not applicable for this client. ar6 Output: 23:24 Urine: 500ml (Chinchilla); Total: 500ml. kd3 05/04 03:02 Urine: 1300ml (Chinchilla); Total: 1800ml. kd3 Outcome: 05/03 22:37 Decision to Hospitalize by Provider. 05/04 07:39 Admitted to Tele mb9 Condition: stable Instructed on the need for admit, 08:42 Patient left the ED. mb9 Signatures: Dispatcher [employer] EDKarin Gruber, MIKE-Ar SLOT MACHINE REPAIRER-CkRicardo Hu Kyli, RN RN kd3 Sophie Cook RN RN mb9 Efrain Soto MD MD ec2 Antonella Castellanos ra3 Nola Hernandez RN RN ar6 Corrections: (The following items were deleted from the chart) 05/03 19:34 19:22 Chief complaint: Patient states: Pt arrived to the ED, sitting in the ER kd3 wheelchair accompanied by family members. Patient has bilateral feet swelling that reportedly started yesterday. Patient reportedly had an appointment kd3
--- NOTE | 2024-05-03 22:37 | EDPHYS ---
Physician Documentation [facility] Name: Lisandro Livingston Age: 83 yrs Sex: Male : 1940 Arrival Date: 05/03/2024 Time: 19:06 Bed 17 Private MD: ED Physician Efrain Soto HPI: 05/03 23:37 This 83 yrs old Male presents to ER via Wheelchair with complaints of Foot kb Pain - BL, inc swelling. 23:37 Pt is an 83 year old male who presents for bilateral lower extremity swelling that kb started yesterday. Denies fever, shortness of breath, chest pain. No aggravating or alleviating factors. . Historical: - Allergies: 19:34 NKDA; kd3 - PMHx: 19:34 Bladder cancer; Cancer; Hypertension; kidney CA; PROSTATE CA; COVID; kd3 - PSHx: 19:34 Bladder Reconstruction; Cholecystectomy; kd3 - Immunization history:: Adult Immunizations up to date. - Infectious Disease History:: Denies. - Social history:: Smoking status: unknown. ROS: 20:37 Constitutional: As per HPI kb Exam: 20:37 Constitutional: This is a well developed, well nourished patient who is awake, alert, kb and in no acute distress. Head/Face: Normocephalic, atraumatic. ENT: Moist Mucous membranes Cardiovascular: Regular rate Respiratory: Respirations even and unlabored. No increased work of breathing. Talking in full sentences Neuro: Awake and alert. 20:37 Musculoskeletal/extremity: Extremities: grossly normal except: noted in the right leg and left leg: swelling, 2+, ROM: intact in all extremities, Circulation is intact in all extremities. 20:37 Skin: erythema to toes. 20:39 ECG was reviewed by the Attending Physician. kb Vital Signs: 19:33 BP 108 / 50; Pulse 74; Resp 16; Temp 98.2(TE); Pulse Ox 96% on R/A; kd3 19:36 BP 152 / 60; Pulse 70; Resp 18; Temp 98.6; Pulse Ox 99% on R/A; Weight 67.13 kg; Height ar6 5 ft. 7 in. ; 21:12 BP 137 / 55; Pulse 68; Resp 18; Pulse Ox 99% on R/A; ar6 23:26 BP 156 / 75; Pulse 71; Resp 19; Pulse Ox 99% on R/A; kd3 19:36 Body Mass Index 23.18 (67.13 kg, 170.18 cm) ar6 MDM: 19:15 Medical Screening Exam initiated kb 23:36 Differential diagnosis: dvt, chf, peripheral edema, cellulitis. Data reviewed: vital kb signs, nurses notes. Consideration of Admission/Observation Patient was admitted/placed on observation. Escalation of care including admission/observation considered. Management of patient was discussed with the following: Hospitalist: Dr Cr accepts pt for admission. Historians other than the Patient: Daughter/Son: son. Counseling: I had a detailed discussion with the patient and/or guardian regarding the historical points, exam findings, and any diagnostic results supporting the discharge/admit diagnosis, lab results, radiology results, the need for further work-up and treatment in the hospital. 05/03 19:27 Order name: Basic Metabolic Panel; Complete Time: 20:32 kb 05/03 19:27 Order name: CBC with Diff; Complete Time: 20:05 kb 05/03 19:27 Order name: Magnesium; Complete Time: 20:32 kb 05/03 19:27 Order name: NT PRO-BNP; Complete Time: 20:32 kb 05/03 19:27 Order name: PT-INR; Complete Time: 20:09 kb 05/03 19:27 Order name: Troponin HS; Complete Time: 20:32 kb 05/03 23:17 Order name: Urinalysis w/ reflexes EDMS 05/03 23:17 Order name: CBC with Automated Diff EDMS 05/03 23:17 Order name: CBC with Automated Diff EDMS 05/03 23:17 Order name: Comprehensive Metabolic Panel EDMS 05/03 23:17 Order name: Comprehensive Metabolic Panel EDMS 05/03 19:27 Order name: Chest Single View XRAY; Complete Time: 20:05 kb 05/03 19:27 Order name: US Extremity Venous W Compression Ryan; Complete Time: 22:21 kb 05/03 19:27 Order name: Lower Extremity Arterial Bilat US; Complete Time: 22:21 kb 05/03 19:27 Order name: EKG; Complete Time: 19:28 kb 05/03 19:27 Order name: Cardiac monitoring; Complete Time: 19:43 kb 05/03 19:27 Order name: EKG - Nurse/Tech; Complete Time: 19:54 kb 05/03 19:27 Order name: IV Saline Lock; Complete Time: 19:54 kb 05/03 19:27 Order name: Labs collected and sent; Complete Time: 19:54 kb 05/03 19:27 Order name: O2 Per Protocol; Complete Time: 19:54 kb 05/03 19:27 Order name: O2 Sat Monitoring; Complete Time: 19:54 kb EC:39 Rate is 65 beats/min. Rhythm is regular. QRS Linch is Normal. ND interval is prolonged kb at 208 msec. QRS interval is normal at 80 msec. QT interval is normal at 386 msec. Administered Medications: 22:51 Drug: Furosemide IVP 20 mg IVP once; give over 2 minutes Route: IVP; Site: right kd3 antecubital; 23:27 Follow up: Response: No adverse reaction kd3 Disposition Summary: 05/03/24 22:37 Hospitalization Ordered Notes: Hospitalization Status: Observation kb Provider: Maurizio Cr Condition: Stable kb Problem: new kb Symptoms: are unchanged kb Bed/Room Type: Standard kb Location: Telemetry/MedSurg (observation)(05/04/24 07:08) Room Assignment: [facility](05/04/24 07:08) Diagnosis - Edema, unspecified kb - Elevated troponin kb Forms: - Medication Reconciliation Form kb - SBAR form kb - Leadership Thank You Letter kb Signatures: Dispatcher [employer] [facility] Karin Singleton, LOCOMOTIVE SWITCH OPERATOR-C LOCOMOTIVE SWITCH OPERATOR-Ckb Wendy Fitch RN RN Birgit Lomas RN RN kd3 Lacey Andres RN RN vc1 Corrections: (The following items were deleted from the chart) 19:28 19:28 Lower Extremity Arterial Bilat+US.RAD.BRZ ordered. [facility] EDSD 05/04 00:23 05/03 22:37 Telemetry/MedSurg (observation) kb vc1 05/04 00:23 05/03 22:37 kb vc1 05/04 07:08 00:23 [facility] ER HOLD vc1 ss 07:08 00:23 ERHOLD- vc1 ss
[2024-05-03] MEDS ORDERED: FUROSEMIDE 20 MG/ 2ML VIAL ONE (22:45)
[2024-05-03] MEDS ORDERED: ACETAMINOPHEN 325 MG TABLET PO PRN (23:12)
[2024-05-03] MEDS ORDERED: ONDANSETRON 4 MG/2 ML VIAL IV PRN (23:12)
--- NOTE | 2024-05-03 23:12 | P.HP ---
Certification for Inpatient Patient admitted to: Inpatient With expected LOS: >2 Midnights Practitioner: I am a practitioner with admitting privileges, knowledge of patient current condition, hospital course, and medical plan of care. Services: Services provided to patient in accordance with Admission requirements found in Title 42 Section 412.3 of the Code of Federal Regulations Patient History Date of Service: 05/04/24 Reason for admission: lower extremity swelling History of Present Illness: 84-year-old male with past medical history of Bladder cancer; Cancer; COVID; Hypertension; kidney CA; PROSTATE CA, s/p Bladder Reconstruction presents with complaints of leg pain. Patient started having bilateral feet swelling associated with burning of bilateral feet which was getting progressively worse and was brought to ER. Associated with pain. Denies any trauma. No fever or chills. No nausea vomiting or diarrhea. Patient was assessed in the ER and was admitted for further management of possible cellulitis Allergies No Known Allergies Allergy (Unverified 05/27/19 08:15) Home medications list reviewed: Yes Home Medications: Gabapentin 300 mg PO TID 07/09/20 Tamsulosin [Flomax*] 0.8 mg PO BEDTIME #60 cap 09/07/23 Atorvastatin Calcium [Lipitor*] 40 mg PO BEDTIME 04/22/24 Docusate Sodium 100 mg PO DAILY 04/22/24 Clopidogrel Bisulfate [Plavix] 75 mg PO DAILY #30 tab 04/23/24 carvediloL [Coreg*] 3.125 mg PO BID 6AM 6PM #60 tab 04/23/24 Smz./Tmp. [Bactrim Ds 800 MG/160 MG] 1 tab PO BID #14 tab 04/28/24 - Past Medical/Surgical History Diabetic: No Past Medical History: Reviewed- Non-Contributory -: Chronic renal disease -: Bladder Cancer, [facility] Oncology-Dr. Antolin Valera -: Varicose veins -: HTN -: Depression with anxiety -: Nicotine dependence -: Possible kidney cancer necrotic mass in the right kidney -: Siegel virus pneumonia -: Prostate cancer -: Pneumonia Past Surgical History: Reviewed- Non-Contributory -: Ryan Cataracts sx -: Bladder reconstruction -: Bladder surgery -: Vascular surgery and is left calf Psychosocial/ Personal History: . 5 children - Family History Mother -: Lung disease, Diabetes Father -: Hypertension, Lung disease, Diabetes - Social History Smoking Status: Current some day smoker Alcohol use: No CD- Drugs: No Caffeine use: No Review of Systems 10-point ROS is otherwise unremarkable Physical Examination - Vital Signs Temperature: 97.3 F Blood Pressure: 152/78 Pulse: 62 Respirations: 18 Pulse Ox (%): 94 - Physical Exam General: Alert, Oriented x3, Mild distress HEENT: Atraumatic, Normocephalic Neck: Supple, 2+ carotid pulse no bruit Respiratory: Clear to auscultation bilaterally, Normal air movement Cardiovascular: Regular rate/rhythm, Normal S1 S2, Edema Capillary refill: <2 Seconds Gastrointestinal: Soft and benign, W/out succussion splash, W/out hepatosplenomegaly Musculoskeletal: No clubbing, No swelling Integumentary: No rashes, No breakdown Neurological: Normal speech, Normal strength at 5/5 x4 extr Lymphatics: No axilla or inguinal lymphadenopathy - Studies Laboratory Data (last 24 hrs) 05/03/24 05/03/24 05/03/24 19:51 19:51 19:51 WBC 6.40 Hgb 11.4 L Hct 33.5 L Plt Count 205 PT 12.0 INR 1.07 Sodium 134 L Potassium 4.4 BUN 49 H Creatinine 1.41 H Glucose 121 H Magnesium 1.9 Assessment and Plan - Plan Bilateral lower extremity swelling To rule out cellulitis Started on IV antibiotic Monitor closely on telemetry Dopplers negative for any DVT Diuresis NSTEMI Will trend cardiac enzymes Will monitor telemetry Started on aspirin and statin Patient denies any chest pain UTI Started on IV antibiotics with vancomycin Urine culture from last admission showed MRSA and Stenotrophomonas maltophilia Will change to Bactrim at the time of discharge Bladder cancer Prostate Cancer s/p Bladder Reconstruction Hypertension Antihypertensives titrated Continue home medications and titrate as needed Hyperlipidemia Continue statin GI/DVT prophylaxis Advanced directive full code Discharge Plan: Home Plan to discharge in: 48 Hours - Advance Directives Does patient have a Living Will: No Does patient have a Durable POA for Healthcare: No - Code Status/Comfort Care Code Status: Full Code Time Spent Managing Pts Care (In Minutes): 48
[2024-05-04] MEDS: FUROSEMIDE 20 MG/ 2ML VIAL IV SCH (04:23)
[2024-05-04] MEDS ORDERED: VANCOMYCIN 1 GM in NA CHLORIDE 0.9% 250 ML IVPB SCH (05:00)
[2024-05-04] MEDS: VANCOMYCIN 1.25 GM in NA CHLORIDE 0.9% 250 ML IVPB ONE (05:00)
[2024-05-04] MEDS ORDERED: FUROSEMIDE 20 MG/ 2ML VIAL ONE (05:30)
[2024-05-04] MEDS ORDERED: VANCOMYCIN 500 MG/VIAL ONE (05:30)
[2024-05-04] MEDS ORDERED: VANCOMYCIN 1 GM/VIAL ONE (05:30)
[2024-05-04] MEDS ORDERED: NA CHLORIDE 0.9% 0 ML ONE (05:31)
[2024-05-04] MEDS ORDERED: NA CHLORIDE 0.9% 250 ML ONE (05:38)
[2024-05-04 05:43] LABS: Absolute Eosinophils 0.1 K/uL (0-0.5); Absolute Lymphocytes (CBC) 1.1 K/uL (0.7-4.9); Absolute Monocytes 0.4 K/uL (0.1-1.3); Absolute Neutrophil 4.3 K/uL (1.8-8.0); Basophils % 0.5 % (0-1.3); Eosinophils % 2.3 % (0-4.4); Hematocrit 34.1 % (39.6-49.0); Hemoglobin 11.7 g/dL (13.6-17.9); Lymphocytes % 18.4 % (15.3-44.8); MCH 29.5 pg (27.0-35.0); MCHC 34.5 g/dL (32.0-36.0); MCV 85.6 fL (80-100); MPV 7.2 fL (7.6-11.3); Monocytes % 7.4 % (3.3-12.3); Neutrophils % 71.4 % (41.7-73.7); Nucleated Red Blood Cells % 0.1 % (0-0); Platelets 207 thou/uL (152-406); RBC Red Blood Cell Count 3.98 M/uL (4.33-5.43); Red Cell Distribution Width 15.1 % (12.1-15.2)
[2024-05-04 06:00] LABS: Albumin/Globulin Ratio 0.8 (1.1-1.8); Anion Gap 8.6 mEq/L (5.0-15.0); Bilirubin Total 0.6 mg/dL (0.2-1.0); Globulin 3.8 g/dL (2.3-3.5); Potassium 3.6 mEq/L (3.5-5.1); Protein, Total 6.8 g/dL (6.4-8.2)
[2024-05-04 06:12] VITALS: BMI 23.1
[2024-05-04] MEDS ORDERED: SMZ./TMP. 800/160 MG TABLET PO ONE (09:00)
[2024-05-04] MEDS: ENOXAPARIN 40 MG/0.4 ML SQ SCH (09:18)
[2024-05-04] MEDS: SMZ./TMP. 800/160 MG TABLET PO SCH (09:18)
[2024-05-04] MEDS: MINERAL OIL 30 ML UCUP PO ONE (12:56)
[2024-05-04] MEDS: POTASSIUM CL SA 10 MEQ TAB PO ONE (12:57)
[2024-05-04 13:45] LABS: Specific Gravity 1.008 (1.005-1.030); Sqamous Epithelial None Seen /HPF (None Seen); Transitional Epithelial <5 /HPF (None Seen); Urine Bacteria <20 /HPF (<20); Urine Bilirubin NEGATIVE (Negative); Urine Blood 1+ (Negative); Urine Clarity Extremely Turbid (Clear); Urine Color Light-Yellow (Yellow); Urine Culture Reflex Order REFLEXED; Urine Glucose NEGATIVE (Negative); Urine Ketones NEGATIVE (Negative); Urine Microscopic Reflex YN ORDER UMIC; Urine Mucus Slight /HPF (None Seen); Urine Nitrite NEGATIVE (Negative); Urine Protein TRACE (Negative); Urine RBC 21-50 /HPF (None Seen); Urine Urobilinogen Normal (Normal); Urine WBC >50 /HPF (<5); Urine WBC Clump Occasional /HPF (None Seen); Urine Yeast (Budding) Moderate /HPF (None Seen); Urine pH 6.5 (5.0-7.0)
[2024-05-04] MEDS: HYDROCODONE/APAP 5/325 MG TAB PO PRN (13:50)
--- NOTE | 2024-05-04 15:49 | P.PN ---
Subjective Date of Service: 05/04/24 Chief Complaint: lower extremity swelling Physical Examination - Vital Signs Temperature: 97.4 F Blood Pressure: 136/70 Pulse: 66 Respirations: 18 Pulse Ox (%): 96 - Studies Laboratory Data (last 24 hrs) 05/03/24 05/03/24 05/03/24 19:51 19:51 19:51 WBC 6.40 Hgb 11.4 L Hct 33.5 L Plt Count 205 PT 12.0 INR 1.07 Sodium 134 L Potassium 4.4 BUN 49 H Creatinine 1.41 H Glucose 121 H Magnesium 1.9 Assessment And Plan - Plan Physical examination General: Alert and oriented x3, NAD, HEENT: Conjunctiva not pale, anicteric sclera Neck: Supple, no elevated JVD Heart: Heart sounds 1 and 2 normal, regular rhythm, normal rate, 1+ bilateral lower extremity pitting edema. Lungs: Clear to auscultation bilaterally, adequate breath sounds bilaterally, no rhonchi or crackles. Abdomen: Soft, nondistended, nontender, normal bowel sounds. Extremities: No tenderness, no deformity Skin: Normal skin turgor, no rash, no nodules or ulcers. Neuro: No focal motor deficit. Normal speech. Psychiatry: Normal mood, no agitation. Assessment and plan Bilateral lower extremity edema Acute on chronic diastolic heart failure No evidence of cellulitis. No evidence of DVT Lasix for edema NSTEMI Troponin trended up slightly. Continue aspirin and statin Patient is asymptomatic. Cardiology consult. UTI Previous blood culture grew MRSA and Stenotrophomonas maltophilia Continue oral Bactrim. Follow repeat urine culture Bladder cancer Prostate Cancer Impaired mobility PT to evaluate. Follow-up with oncology as outpatient. Hypertension Continue home medications and titrate as needed DVT prophylaxis: Lovenox Advanced directive: full code
--- NOTE | 2024-05-04 16:07 | P.CNS ---
Date of Consult: 05/04/24 Chief Complaint: lower extremity swelling History of Present Illness: Patient with PMH of Cancer, presented with lower extremities swelling, denies chest pain, no SOB, no palpitations, no syncope. cardiology consulted for elevated Troponin. Allergies No Known Allergies Allergy (Unverified 05/27/19 08:15) Home medications list reviewed: Yes Home Medications: Gabapentin 300 mg PO BID 07/09/20 Atorvastatin Calcium [Lipitor*] 40 mg PO BEDTIME 04/22/24 Acetaminophen 1 tab PO Q5H PRN 05/04/24 Aspirin [Aspirin EC] 1 tab PO DAILY 05/04/24 Sennosides [Senna] 1 tab PO BEDTIME PRN 05/04/24 Tamsulosin HCl [Flomax] 1 cap PO DAILY 05/04/24 - Past Medical/Surgical History Diabetic: No -: Chronic renal disease -: Bladder Cancer, [facility] Oncology-Dr. Antolin Valera -: Varicose veins -: HTN -: Depression with anxiety -: Nicotine dependence -: Possible kidney cancer necrotic mass in the right kidney -: Siegel virus pneumonia -: Prostate cancer -: Pneumonia -: Ryan Cataracts sx -: Bladder reconstruction -: Bladder surgery -: Vascular surgery and is left calf Psychosocial/ Personal History: . 5 children - Family History Mother Medical History: Lung disease, Diabetes Father Medical History: Hypertension, Lung disease, Diabetes - Social History Smoking Status: Unknown if ever smoked Alcohol use: No CD- Drugs: No Caffeine use: No Place of Residence: Home Review of Systems 10-point ROS is otherwise unremarkable Physical Examination Temp Pulse Resp BP Pulse Ox 97.4 F 66 18 136/70 96 05/04/24 15:53 05/04/24 15:53 05/04/24 15:53 05/04/24 15:53 05/04/24 15:53 General: Alert, In no apparent distress HEENT: Atraumatic, PERRLA, Mucous membr. moist/pink, EOMI, Sclerae nonicteric Neck: Supple, 2+ carotid pulse no bruit, No LAD, Without JVD or thyroid abnormality Respiratory: Clear to auscultation bilaterally, Normal air movement Cardiovascular: Regular rate/rhythm, Normal S1 S2 Gastrointestinal: Normal bowel sounds, No tenderness Musculoskeletal: No tenderness Integumentary: No rashes Neurological: Normal gait, Normal speech, Normal tone, Normal affect Lymphatics: No axilla or inguinal lymphadenopathy Laboratory Data (last 24 hrs) 05/03/24 05/03/24 05/03/24 19:51 19:51 19:51 WBC 6.40 Hgb 11.4 L Hct 33.5 L Plt Count 205 PT 12.0 INR 1.07 Sodium 134 L Potassium 4.4 BUN 49 H Creatinine 1.41 H Glucose 121 H Magnesium 1.9 - Problems (1) Type 2 AL (myocardial infarction) Current Visit: Yes Status: Acute Plan: patient denies chest pain, troponin mild elevated with no significant delta, patient had a recent stress test and echo that was normal this is type 2 AL from [place], Malnutrition and cancer No further cardiac work up needed. Cardiology will sign off.
[2024-05-04] MEDS: SENOSIDES 8.6 MG TAB PO SCH (21:24)
[2024-05-04] MEDS: GABAPENTIN 300 MG CAP PO SCH (21:24)
[2024-05-04] MEDS: ATORVASTATIN 40 MG TAB PO SCH (21:24)
[2024-05-04] MEDS: MORPHINE 2 MG/ML SYR IV PRN (23:44)
[2024-05-05] MEDS ORDERED: VANCOMYCIN 1.25 GM in NA CHLORIDE 0.9% 250 ML IVPB SCH (05:00)
[2024-05-05 06:36] LABS: Absolute Eosinophils 0.1 K/uL (0-0.5); Absolute Monocytes 0.5 K/uL (0.1-1.3); Absolute Neutrophil 4.5 K/uL (1.8-8.0); Basophils % 0.6 % (0-1.3); Eosinophils % 2.3 % (0-4.4); Hematocrit 35.1 % (39.6-49.0); Lymphocytes % 16.5 % (15.3-44.8); MCH 29.2 pg (27.0-35.0); MCHC 34.2 g/dL (32.0-36.0); MCV 85.5 fL (80-100); MPV 7.4 fL (7.6-11.3); Monocytes % 8.3 % (3.3-12.3); Neutrophils % 72.3 % (41.7-73.7); Nucleated Red Blood Cells % 0.1 % (0-0); Platelets 221 thou/uL (152-406); RBC Red Blood Cell Count 4.11 M/uL (4.33-5.43)
[2024-05-05 07:01] LABS: Anion Gap 8.7 mEq/L (5.0-15.0); Potassium 3.7 mEq/L (3.5-5.1)
[2024-05-05] MEDS: POTASSIUM CL SA 10 MEQ TAB PO ONE (08:59)
[2024-05-05] MEDS: ASPIRIN EC 81 MG TAB PO SCH (08:59)
[2024-05-05] MEDS: TAMSULOSIN 0.4 MG SR CAP PO SCH (08:59)
--- NOTE | 2024-05-05 11:55 | EKG ---
Test Date: 2024-05-03 Test Time: 19:53:16 Cylinder Inspector: REAGAN MEASUREMENT RESULTS: Intervals: Rate: 65 OH: 208 QRSD: 80 QT: 372 QTc: 386 [place]: P: 49 OH: 208 QRS: 19 T: 37 INTERPRETIVE STATEMENTS: Normal sinus rhythm Nonspecific T wave abnormality Abnormal ECG Compared to ECG 04/22/2024 18:31:42 T-wave abnormality now present First degree AV block no longer present Electronically Signed On 05-05-24 11:51:54 CDT by Corby Montiel
[2024-05-05 13:16] VITALS: O2SAT 98
--- NOTE | 2024-05-05 14:35 | P.DS ---
Admission Date: 05/03/24 Discharge Date: 05/05/24 Disposition: DC HOME/HOME HEALTH CARE Discharge Condition: FAIR Reason for Admission: lower extremity swelling Brief History of Present Illness: 84-year-old male with past medical history of Bladder cancer; Cancer; COVID; Hypertension; kidney CA; PROSTATE CA, s/p Bladder Reconstruction presented with complaints of leg pain. Patient reported bilateral feet swelling associated with burning of bilateral feet which was getting progressively worse and was brought to ER. Patient was assessed in the ER, initial troponin mildly elevated.patient was hospitalized for further management. Patient was hospital for further management. Hospital Course: Patient admitted to the medical floor and the following medical problems addressed: Bilateral lower extremity edema Acute on chronic diastolic heart failure No evidence of cellulitis. No evidence of DVT Patient was treated with IV Lasix for lower extremity edema. His leg swelling significantly improved. NSTEMI Troponin trended up slightly. Continued aspirin and statin Patient was asymptomatic. Patient seen by cardiology, elevated troponin deemed secondary to demand. No further intervention per cardiology. UTI Previous blood culture grew MRSA and Stenotrophomonas maltophilia Continued oral Bactrim prescribed prior to admission. Urine culture yielded no growth. Bladder cancer Prostate Cancer Impaired mobility Patient evaluated by PT. He ambulated about 20 feet at a time with stops. Patient and son declined SNF placement and prefers to go home. He is prescribed home health for PT and fdc. Follow-up with oncology as outpatient. Hypertension Continued home medications. Vital Signs/Physical Exam: Temp Pulse Resp BP Pulse Ox 97.8 F 74 20 117/57 L 90 L 05/05/24 12:00 05/05/24 12:00 05/05/24 12:00 05/05/24 12:00 05/05/24 12:00 General: Alert, In no apparent distress, Oriented x3 HEENT: Mucous membr. moist/pink Neck: Supple, JVD not distended Respiratory: Clear to auscultation bilaterally, Normal air movement Cardiovascular: No edema, Regular rate/rhythm, Normal S1 S2 Gastrointestinal: Normal bowel sounds, Soft and benign, Non-distended, No tenderness Musculoskeletal: No swelling, No tenderness Integumentary: No erythema, No cyanosis Neurological: Normal speech, Normal strength at 5/5 x4 extr Laboratory Data at Discharge: WBC 6.30 thou/uL (4.3-10.9) 05/05/24 05:17 Hgb 12.0 g/dL (13.6-17.9) L 05/05/24 05:17 Hct 35.1 % (39.6-49.0) L 05/05/24 05:17 Plt Count 221 thou/uL (152-406) 05/05/24 05:17 PT 12.0 SECONDS (9.4-12.5) 05/03/24 19:51 INR 1.07 05/03/24 19:51 Sodium 135 mEq/L (136-145) L 05/05/24 05:17 Potassium 3.7 mEq/L (3.5-5.1) 05/05/24 05:17 BUN 50 mg/dL (7-18) H 05/05/24 05:17 Creatinine 1.44 mg/dL (0.70-1.30) H 05/05/24 05:17 Glucose 98 mg/dL (74-106) 05/05/24 05:17 Phosphorus 3.0 mg/dL (2.5-4.9) 05/05/24 05:17 Magnesium 1.9 mg/dL (1.6-2.4) 05/03/24 19:51 Total Bilirubin 0.6 mg/dL (0.2-1.0) 05/04/24 05:21 AST 25 U/L (15-37) 05/04/24 05:21 ALT 38 U/L (16-61) 05/04/24 05:21 Alkaline Phosphatase 247 U/L (45-117) H 05/04/24 05:21 Home Medications: Gabapentin 300 mg PO BID 07/09/20 Atorvastatin Calcium [Lipitor*] 40 mg PO BEDTIME 04/22/24 Acetaminophen 1 tab PO Q5H PRN 05/04/24 Aspirin [Aspirin EC] 1 tab PO DAILY 05/04/24 Sennosides [Senna] 1 tab PO BEDTIME PRN 05/04/24 Tamsulosin HCl [Flomax] 1 cap PO DAILY 05/04/24 Furosemide [Lasix] 40 mg PO DAILY PRN #30 tab 05/05/24 Smz./Tmp. [Bactrim Ds 800 MG/160 MG*] 1 tab PO BID tab 05/05/24 New Medications: Furosemide [Lasix] 40 mg PO DAILY PRN #30 tab PRN Reason: Leg swelling Diet: AHA Activity: Ad vitor Followup: Donte Rosas MD [Primary Care Provider] - 1-2 Weeks Time spent managing pt's care (in minutes): 32
[2024-05-05 16:53] VITALS: BP 132/86; TEMP 98.2
== END 2024-05-05 17:00 | disposition home health service (06) | DRG 280 ==
LOC: ER 19:06 → ERHOLD 23:12 → 4TH 05-04 07:36
PROVIDERS: ADMIT Family Medicine; ATTEND Internal Medicine
DX: I11.0 Hypertensive heart disease with heart failure (principal); I50.33 Acute on chronic diastolic (congestive) heart failure; I21.A1 Myocardial infarction type 2; N39.0 Urinary tract infection, site not specified; N17.9 Acute kidney failure, unspecified; E46 Unspecified protein-calorie malnutrition; E78.5 Hyperlipidemia, unspecified; Z86.16 Personal history of COVID-19; Z85.46 Personal history of malignant neoplasm of prostate; Z85.51 Personal history of malignant neoplasm of bladder; Z90.49 Acquired absence of other specified parts of digestive tract; Z79.02 Long term (current) use of antithrombotics/antiplatelets; Z79.899 Other long term (current) drug therapy; Z68.23 Body mass index [BMI] 23.0-23.9, adult
CPT/HCPCS: 36415; 71045; 80048; 80053; 81001; 83735; 83880; 84100; 84484; 85025; 85610; 87086; 87088; 93005; 93925; 93970; 94760; 96374; 97116; 97161; 97530; 99285; J1650; J1940; J2270; J7040; J7050

== ENCOUNTER 2024-05-14 09:29 | Emergency (ER) | payer OTHER ==
[2024-05-14] MEDS ORDERED: NA CHLORIDE 0.9% 500 ML ONE (10:46)
[2024-05-14 10:55] LABS: Absolute Eosinophils 0.1 K/uL (0-0.5); Absolute Monocytes 0.5 K/uL (0.1-1.3); Absolute Neutrophil 5.1 K/uL (1.8-8.0); Basophils % 0.6 % (0-1.3); Eosinophils % 1.4 % (0-4.4); Hemoglobin 13.3 g/dL (13.6-17.9); Lymphocytes % 15.5 % (15.3-44.8); MCH 29.4 pg (27.0-35.0); MCV 86.5 fL (80-100); MPV 7.4 fL (7.6-11.3); Monocytes % 6.8 % (3.3-12.3); Neutrophils % 75.7 % (41.7-73.7); Nucleated Red Blood Cells % 0.1 % (0-0); Platelets 225 thou/uL (152-406); RBC Red Blood Cell Count 4.51 M/uL (4.33-5.43); Red Cell Distribution Width 15.2 % (12.1-15.2)
[2024-05-14 11:07] LABS: Albumin 3.5 g/dL (3.4-5.0); Albumin/Globulin Ratio 0.8 (1.1-1.8); Anion Gap 9.6 mEq/L (5.0-15.0); Bilirubin Total 0.7 mg/dL (0.2-1.0); Globulin 4.6 g/dL (2.3-3.5); Potassium 4.6 mEq/L (3.5-5.1); Protein, Total 8.1 g/dL (6.4-8.2)
--- NOTE | 2024-05-14 11:43 | RAD REPORT ---
EXAMINATION: CT Stone Protocol CLINICAL INDICATION: Male, 84 years old. ABD PAIN TECHNIQUE: CT abdomen and pelvis was performed, without IV contrast, as per department protocol. Axia l, sagittal and coronal reconstructions were obtained. One or more of the following dose reduction techniques were used: Automated exposure control, adjustment of the mA and kV according to the patien t size, and iterative reconstruction. Unless otherwise specified, incidental findings do not require dedicated imaging follow-up. COMPARISON: 03/12/2024 FINDINGS: The lack of intravenous contrast limits the sensitivity of this exam for evaluation of solid visceral organs, vascular structures, and retroperitoneum. LOWER CHEST: Lobulated central right lower lobe mass, demonstrating interval increase in size of its caudal component, now measuring 2.5 x 2.0 cm in greatest axial dimensions, where previously it measured up to 2.0 cm. Anterior right middle lobe 8 mm nodule, stable. Trace left pleural effusion, s table. Mild pericardial effusion, stable. LIVER: Normal in size and contour. No focal lesion. BILIARY SYSTEM: No suspicious abnormalities. SPLEEN: Normal size. No focal lesion. PANCREAS: No mass, ductal dilation, or manuel-pancreatic fluid. ADRENALS: Normal; no mass. KIDNEYS AND URETERS: Lobulated mass involving the mid to lower aspect of the right kidney, and extend ing along the lower right renal pelvis and proximal ureter, with nodular component partially invading the psoas muscle anteriorly. The mass is overall stable in configuration to the psoas relate d to component may have slightly increased in size, now measuring 2.3 cm, previously 1.4 cm. Moderately prominent caliber of the left renal pelvis and ureter, likely due to retrograde reflux. URINARY BLADDER: Sequelae of cystectomy with bladder reconstruction, with marked filling of the ileal conduit, with Humphreys catheter balloon noted at the outset. No suspicious masses are identified within limits of noncontrast evaluation.. GASTROINTESTINAL TRACT: No evidence of bowel obstruction, significant free fluid, free air or abscess . APPENDIX: Normal appendix. LYMPH NODES: No lymphadenopathy. MUSCULOSKELETAL: No acute fracture. Interval increase in size of the lytic lesion centered on the rig ht sacral iliac, lytic changes now extends to the midline of the sacrum, centered at S2 level, and approximately right sacroiliac joint. The lesion measures up to 5.5 cm in greatest axial transverse d imension, increased in size from 3.4 cm. ADDITIONAL FINDINGS: None. IMPRESSION: Marked fluid filling of the ileal conduit. Humphreys catheter balloon appears to be well situated near th e outlet. No evidence of radiopaque calculi or mass in the pelvic soft tissues, within limits of noncontrast evaluation. Moderate distention of the left renal pelvis and ureter, likely due to retrograde reflux. Interval increase in size of right lower lung lobe metastatic lesion (along its caudal component), an d sacral lytic lesion as above. Redemonstration of large mass occupying most of the right kidney. Caudal component of the mass, proba mariana invading the psoas muscle appears to have increased in size.
--- NOTE | 2024-05-14 12:18 | ER ---
Nurse's Notes [facility] Name: Lisandro Livingston Age: 84 yrs Sex: Male : 1940 Arrival Date: 05/14/2024 Time: 09:29 Bed 19 Private MD: Diagnosis: Personal history of other malignant neoplasm of kidney;Malignant neoplasm of right kidney, except renal pelvis;Other mechanical complication of urinary (indwelling) catheter;Other retention of urine;Retention of urine, unspecified Presentation: 05/14 09:47 Chief complaint: Patient's son or daughter states: decreased urinary output in chinchilla ss bag since last night. Pt states that he feels as if his bladder is full. Chinchilla last changed on 04/23. Coronavirus screen: Client denies travel out of the [place] in the last 14 days. Ebola Screen: Patient denies exposure to infectious person. Patient denies travel to an Ebola-affected area in the 21 days before illness onset. Initial Sepsis Screen: Does the patient meet any 2 criteria? No. Patient's initial sepsis screen is negative. Does the patient have a suspected source of infection? No. Patient's initial sepsis screen is negative. Risk Assessment: Do you want to hurt yourself or someone else? Patient reports no desire to harm self or others. Onset of symptoms was May 13, 2024. 09:47 Method Of Arrival: Wheelchair ss 09:47 Acuity: JUDIT 3 ss Historical: - Allergies: 09:50 NKDA; ss - PMHx: 09:50 Bladder cancer; Cancer; COVID; Hypertension; kidney CA; PROSTATE CA; ss - PSHx: 09:50 Bladder Reconstruction; Cholecystectomy; ss - Immunization history:: Adult Immunizations unknown. - Infectious Disease History:: Denies. - Social history:: Smoking status: unknown. Screenin:00 [facility] ED Fall Risk Assessment (Adult) History of falling in the last 3 months, aa5 including since admission No falls in past 3 months (0 pts) Confusion or Disorientation No (0 pts) Intoxicated or Sedated No (0 pts) Impaired Gait Yes (1 pt) Mobility Assist Device Used Yes (1 pt) Altered Elimination Yes (1 pt) Score/Fall Risk Level 3 or more points = High Risk Oriented to surroundings, Maintained a safe environment, Educated pt \T\ family on fall prevention, incl call for assistance when getting out of bed. Abuse screen: No signs of abuse noted. Nutritional screening: No deficits noted. Tuberculosis screening: No symptoms or risk factors identified. Assessment: 10:00 General: Appears comfortable, Behavior is calm, cooperative. Pain: Denies pain. Neuro: aa5 Level of Consciousness is awake, alert, obeys commands, Oriented to person, place, situation. Cardiovascular: Patient's skin is warm and dry. Respiratory: Airway is patent Respiratory effort is even, unlabored, Respiratory pattern is regular, symmetrical. GI: Abdomen is round Bowel sounds present X 4 quads. Abd is soft and non tender X 4 quads. Abdomen is tender to palpation in suprapubic area. : Parent/caregiver report the patient having no urinary output this morning from Chinchilla placed on 04/23/2024. EENT: No signs and/or symptoms were reported regarding the EENT system. Derm: Skin is pink, warm \T\ dry. Musculoskeletal: Range of motion: intact in all extremities. 10:53 Reassessment: Pt to CT via stretcher . aa5 12:00 Reassessment: Patient is alert, oriented x 3, equal unlabored respirations, skin aa5 warm/dry/pink. Chinchilla flushed with [address] Cook. Chinchilla draining to gravity now. . 12:30 General: Discharge delayed for bladder to empty into chinchilla and medication follow up me1 time. . Vital Signs: 09:47 BP 146 / 55; Resp 16; Temp 97.8(TE); Pulse Ox 98% on R/A; ss 10:30 BP 133 / 57; Pulse 54; Resp 16; Pulse Ox 97% ; me1 11:30 BP 125 / 66; Pulse 52; Resp 16; Pulse Ox 92% ; me1 12:30 BP 129 / 61; Pulse 50; Resp 16; Temp 98.2; Pulse Ox 100% ; me1 ED Course: 09:30 Patient arrived in ED. ra3 09:33 Candido Cook MD is Attending Physician. [facility] 09:50 Triage completed. ss 09:50 Arm band placed on right wrist. ss 10:00 Patient has correct armband on for positive identification. Bed in low position. Call aa5 light in reach. Side rails up X2. Adult w/ patient. Pulse ox on. NIBP on. 10:20 Chinchilla cath removed intact, balloon deflated. aa5 10:25 Chinchilla cath inserted, using sterile technique, 18 Fr., by me, balloon inflated, to aa5 gravity drainage. 10:29 Emily Gunderson RN is Primary Nurse. aa5 10:43 Initial lab(s) drawn, by me, sent to lab. Inserted saline lock: 22 gauge in right aa5 antecubital area, using aseptic technique. Blood collected. Flushed with 10 mL NS. 11:02 CT Stone Protocol In Process Unspecified. EDMS 12:00 Report given to FAVIOLA Khan. aa5 12:00 Provided Education on: POC. Verbalized understanding.. me1 12:40 Urinalysis w/ reflexes Sent. me1 12:40 Urine collected: Chinchilla catheter specimen, cloudy, sediment noted. me1 13:24 No provider procedures requiring assistance completed. IV discontinued, intact, me1 bleeding controlled, No redness/swelling at site. Pressure dressing applied. Administered Medications: 10:29 CANCELLED (Patient Refused): morphineor iv 2 mg IVP once over 4 mins aa5 10:29 Not Given (Patient Refused): ondansetron 4 mg IVP once; over 2 minutes aa5 10:30 CANCELLED (Patient Refused): morphineor iv 2 mg IVP once over 4 mins aa5 11:20 Drug: NS 0.9% IV 500 ml IV at bolus once; to be given as a bolus over 30 minutes Route: aa5 IV; Rate: bolus; Site: right antecubital; 12:40 Follow up: Response: No adverse reaction; IV Status: Completed infusion; IV Intake: me1 500ml 12:35 Drug: Ciprofloxacin PO 500 mg PO once Route: PO; me1 12:40 Follow up: Response: No adverse reaction me1 Medication: 10:56 VIS not applicable for this client. aa5 Intake: 12:40 IV: 500ml; Total: 500ml. me1 Outcome: 12:18 Discharge ordered by . mahesh 13:24 Discharged to home via wheelchair, with family, me1 13:24 Condition: stable 13:24 Discharge instructions given to patient, family, Instructed on discharge instructions, follow up and referral plans. medication usage, Demonstrated understanding of instructions, follow-up care, medications, Prescriptions given X 1, 13:26 Patient left the ED. me1 Addendum: 05/17/2024 08:46 Addendum: Culture Results: Positive urine culture. Bacteria is resistant to, has i w intermediate sensitivity, or is not tested against prescribed antibiotics. Report given to RUCHI for further evaluation and then to liquefied natural gas operator for follow up with patient. Phone call Attempt #1 no answer, unable to leave voice mail, mail box full. 05/18/2024 16:00 Addendum: Culture Results: Phone call Attempt #2 No answer, voice mail full. l l1 Signatures: Dispatcher [employer] Candido Barnes MD MD cha Williams, Irene, RN RN iw Emily Gunderson RN RN aa5 Wendy Fitch, RN FAVIOLA ss Alia Dillard RN RN 1 Erin La RN RN me1 Antonella Castellanos ra3
--- NOTE | 2024-05-14 12:18 | EDPHYS ---
Physician Documentation [facility] Name: Lisandro Livingston Age: 84 yrs Sex: Male : 1940 Arrival Date: 05/14/2024 Time: 09:29 Bed 19 Private MD: RUBIN Physician Candido Cook Historical: - Allergies: 05/14 09:50 NKDA; ss - PMHx: 09:50 Bladder cancer; Cancer; COVID; Hypertension; kidney CA; PROSTATE CA; ss - PSHx: 09:50 Bladder Reconstruction; Cholecystectomy; ss - Immunization history:: Adult Immunizations unknown. - Infectious Disease History:: Denies. - Social history:: Smoking status: unknown. Vital Signs: 09:47 BP 146 / 55; Resp 16; Temp 97.8(TE); Pulse Ox 98% on R/A; ss 10:30 BP 133 / 57; Pulse 54; Resp 16; Pulse Ox 97% ; me1 11:30 BP 125 / 66; Pulse 52; Resp 16; Pulse Ox 92% ; me1 12:30 BP 129 / 61; Pulse 50; Resp 16; Temp 98.2; Pulse Ox 100% ; me1 MDM: 09:33 Medical Screening Exam initiated [facility] 05/14 10:28 Order name: CBC with Diff; Complete Time: 11:59 [facility] 05/14 10:28 Order name: Comprehensive Metabolic Panel; Complete Time: 11:59 [facility] 05/14 10:28 Order name: Urinalysis w/ reflexes [facility] 05/14 12:47 Order name: Urine Culture [facility] 05/14 10:28 Order name: CT Stone Protocol; Complete Time: 11:59 [facility] 05/14 10:28 Order name: Humphreys; Complete Time: 10:29 [facility] 05/14 10:28 Order name: Humphreys Leg Bag; Complete Time: 10:29 [facility] Administered Medications: 10:29 CANCELLED (Patient Refused): morphineor iv 2 mg IVP once over 4 mins aa5 10:29 Not Given (Patient Refused): ondansetron 4 mg IVP once; over 2 minutes aa5 10:30 CANCELLED (Patient Refused): morphineor iv 2 mg IVP once over 4 mins aa5 11:20 Drug: NS 0.9% IV 500 ml IV at bolus once; to be given as a bolus over 30 minutes Route: aa5 IV; Rate: bolus; Site: right antecubital; 12:40 Follow up: Response: No adverse reaction; IV Status: Completed infusion; IV Intake: me1 500ml 12:35 Drug: Ciprofloxacin PO 500 mg PO once Route: PO; me1 12:40 Follow up: Response: No adverse reaction me1 Disposition Summary: 05/14/24 12:18 Discharge Ordered Notes: Location: Home mahesh Problem: new mahesh Symptoms: have improved mahesh Condition: Stable mahesh Diagnosis - Personal history of other malignant neoplasm of kidney mahesh - Malignant neoplasm of right kidney, except renal pelvis mahesh - Other mechanical complication of urinary (indwelling) catheter mahesh - Other retention of urine mahesh - Retention of urine, unspecified mahesh Followup: mahesh - With: Private Physician - When: 2 - 3 days - Reason: Recheck today's complaints, Continuance of care, Re-evaluation by your physician Discharge Instructions: - Discharge Summary Sheet mahesh - Indwelling Urinary Catheter Care, Adult mahesh - Acute Urinary Retention, Male mahesh - Acute Urinary Retention, Male, [id number] mahesh - Indwelling Urinary Catheter Care, Adult, [id number] mahesh - Kidney Cancer mahesh Forms: - Medication Reconciliation Form mahesh - Antibiotic Education mahesh - Prescription Opioid Use mahesh - Patient Portal Instructions mahesh - Leadership Thank You Letter [facility] Prescriptions: - Cipro 250 mg Oral tablet - take 1 tablet ORAL route every 12 hours; 14 tablet; Refills: 0, Product mahesh Selection Permitted Signatures: Dispatcher [employer] EDMS Candido Cook MD MD cha Calderon, Audri RN RN aa5 Wendy Fitch RN RN Erin La RN RN me1 Corrections: (The following items were deleted from the chart) 10:28 10:28 CBC+H.LAB.BRZ ordered. EDMS EDMS 10:28 10:28 COMPREHENSIVE METABOLIC PANEL+C.LAB.BRZ ordered. EDMS EDMS 10:28 10:28 Urinalysis+U.LAB.BRZ ordered. EDMS EDMS 10:29 10:28 morphine IVP or IV 2 mg IVP once over 4 mins ordered. mahesh aa5 10:30 10:28 morphine IVP or IV 2 mg IVP once over 4 mins ordered. mahesh aa5
[2024-05-14] MEDS ORDERED: CIPROFLOXACIN HCL 500 MG TAB ONE (12:32)
[2024-05-14 12:42] LABS: Sqamous Epithelial None Seen /HPF (None Seen); Urine Bacteria 20-50 /HPF (<20); Urine Bilirubin NEGATIVE (Negative); Urine Blood 2+ (Negative); Urine Clarity Extremely Turbid (Clear); Urine Color Light-Orange (Yellow); Urine Crystals Unidentified Few /HPF (None Seen); Urine Culture Reflex Order REFLEXED; Urine Glucose NEGATIVE (Negative); Urine Ketones NEGATIVE (Negative); Urine Microscopic Reflex YN ORDER UMIC; Urine Nitrite NEGATIVE (Negative); Urine Protein 2+ (Negative); Urine RBC >50 /HPF (None Seen); Urine Urobilinogen Normal (Normal); Urine WBC >50 /HPF (<5); Urine WBC Clump Many /HPF (None Seen); Urine Yeast (Budding) Many /HPF (None Seen); Urine pH 6.5 (5.0-7.0)
[2024-05-14 22:19] VITALS: BP 129/61; TEMP 98.2; O2SAT 100
== END 2024-05-14 13:26 | disposition home or self-care (01) ==
LOC: ER 09:29
DX: R33.8 Other retention of urine (principal); T83.098A Other mechanical complication of other urinary catheter, initial encounter; C64.1 Malignant neoplasm of right kidney, except renal pelvis; Z85.528 Personal history of other malignant neoplasm of kidney; Z85.46 Personal history of malignant neoplasm of prostate; Z85.51 Personal history of malignant neoplasm of bladder
CPT/HCPCS: 87088; 85025; 81001; 87086; 36415; 80053; 76377; 74176; J7040; 51702; 87077; 87186; 96360; 99285

== ENCOUNTER 2024-05-23 09:46 | Emergency (ER) | payer OTHER ==
--- NOTE | 2024-05-23 10:27 | EDPHYS ---
Physician Documentation [facility] Name: Lisandro Livingston Age: 84 yrs Sex: Male : 1940 Arrival Date: 05/23/2024 Time: 09:46 Bed 6 Private MD: RUBIN Physician Candido Cook HPI: 05/23 10:23 This 84 yrs old Male presents to ER via Wheelchair with complaints of Problem mahesh With Urinary Catheter. 10:23 The patient presents with a Chinchilla catheter problem, is not draining, urinary symptoms. mahesh Onset: The symptoms/episode began/occurred 1 day(s) ago. Modifying factors: The symptoms are alleviated by nothing, the symptoms are aggravated by nothing. Severity of symptoms: At their worst the symptoms were mild, in the emergency department the symptoms are unchanged. The patient has experienced similar episodes in the past. Historical: - Allergies: 10:10 NKDA; aa5 - PMHx: 10:10 Bladder cancer; Cancer; Hypertension; kidney CA; PROSTATE CA; aa5 - PSHx: 10:10 Bladder Reconstruction; Cholecystectomy; aa5 - Immunization history:: Adult Immunizations unknown. - Infectious Disease History:: Denies. - Social history:: Smoking status: Patient denies any tobacco usage or history of. - Family history:: not pertinent. ROS: 10:23 Constitutional: Negative for fever, chills, and weight loss, Eyes: Negative for injury, mahesh pain, redness, and discharge, ENT: Negative for injury, pain, and discharge, Neck: Negative for injury, pain, and swelling, Cardiovascular: Negative for chest pain, palpitations, and edema, Respiratory: Negative for shortness of breath, cough, wheezing, and pleuritic chest pain, Abdomen/GI: Negative for abdominal pain, nausea, vomiting, diarrhea, and constipation, Back: Negative for injury and pain, MS/Extremity: Negative for injury and deformity, Skin: Negative for injury, rash, and discoloration, Neuro: Negative for headache, weakness, numbness, tingling, and seizure, Psych: Negative for depression, anxiety, suicide ideation, homicidal ideation, and hallucinations, Allergy/Immunology: Negative for hives, rash, and allergies, Endocrine: Negative for neck swelling, polydipsia, polyuria, polyphagia, and marked weight changes, Hematologic/Lymphatic: Negative for swollen nodes, abnormal bleeding, and unusual bruising, 10:23 : Positive for urinary symptoms, blocked chinchilla, Exam: 10:23 Constitutional: This is a well developed, well nourished patient who is awake, alert, mahesh and in no acute distress. Head/Face: Normocephalic, atraumatic. Eyes: Pupils equal round and reactive to light, extra-ocular motions intact. Lids and lashes normal. Conjunctiva and sclera are non-icteric and not injected. Cornea within normal limits. Periorbital areas with no swelling, redness, or edema. ENT: Nares patent. No nasal discharge, no septal abnormalities noted. Tympanic membranes are normal and external auditory canals are clear. Oropharynx with no redness, swelling, or masses, exudates, or evidence of obstruction, uvula midline. Mucous membranes moist. Neck: Trachea midline, no thyromegaly or masses palpated, and no cervical lymphadenopathy. Supple, full range of motion without nuchal rigidity, or vertebral point tenderness. No Meningismus. Chest/axilla: Normal chest wall appearance and motion. Nontender with no deformity. No lesions are appreciated. Cardiovascular: Regular rate and rhythm with a normal S1 and S2. No gallops, murmurs, or rubs. Normal PMI, no JVD. No pulse deficits. Respiratory: Lungs have equal breath sounds bilaterally, clear to auscultation and percussion. No rales, rhonchi or wheezes noted. No increased work of breathing, no retractions or nasal flaring. Abdomen/GI: Soft, non-tender, with normal bowel sounds. No distension or tympany. No guarding or rebound. No evidence of tenderness throughout. Back: No spinal tenderness. No costovertebral tenderness. Full range of motion. Skin: Warm, dry with normal turgor. Normal color with no rashes, no lesions, and no evidence of cellulitis. MS/ Extremity: Pulses equal, no cyanosis. Neurovascular intact. Full, normal range of motion. Neuro: Awake and alert, GCS 15, oriented to person, place, time, and situation. Cranial nerves II-XII grossly intact. Motor strength 5/5 in all extremities. Sensory grossly intact. Cerebellar exam normal. Normal gait. Psych: Awake, alert, with orientation to person, place and time. Behavior, mood, and affect are within normal limits. 10:23 : CVA tenderness, is absent, Male external genitalia: normal, Bladder: distension, that is moderate, Sexual behavior: the patient is not sexually active, Vital Signs: 10:09 BP 132 / 60; Pulse 62; Resp 16 S; Temp 98.2(TE); Pulse Ox 99% on R/A; aa5 11:15 BP 130 / 64; Pulse 60; Resp 15 S; Temp 98(TE); Pulse Ox 99% on R/A; aa5 MDM: 09:49 Medical Screening Exam initiated [facility] 10:26 Differential diagnosis: nonspecific abdominal pain, UTI, urinary retention, Chinchilla mahesh catheter problem, prostatitis, urethritis. Data reviewed: vital signs, nurses notes, lab test result(s). Consideration of Admission/Observation Escalation of care including admission/observation considered. Test considered but Not performed: Labs: no cbc , no comp met. Administered Medications: 10:41 CANCELLED (Physician Discretion): [id number] mg PO once aa5 11:15 Drug: Cefdinir PO 300 mg PO once Route: PO; aa5 11:15 Follow up: Response: Medication administered at discharge. aa5 Disposition Summary: 05/23/24 10:27 Discharge Ordered Notes: Location: Home [facility] Problem: new mahesh Symptoms: have improved mahesh Condition: Stable mahesh Diagnosis - Other mechanical complication of urinary (indwelling) catheter mahesh - Mechanical complication of urinary (indwelling) catheter mahesh - UTI/ Urinary tract infection, site not specified mahesh Followup: mahesh - With: Private Physician - When: 2 - 3 days - Reason: Recheck today's complaints, Continuance of care, Re-evaluation by your physician Followup: mahesh - With: Mayank Hernandez MD - When: 2 - 3 days - Reason: Recheck today's complaints, Re-evaluation by your physician Discharge Instructions: - Discharge Summary Sheet mahesh - Indwelling Urinary Catheter Care, Adult mahesh - Indwelling Urinary Catheter Care, Adult, [id number] [facility] Forms: - Medication Reconciliation Form mahesh - Antibiotic Education mahesh - Prescription Opioid Use mahesh - Patient Portal Instructions [facility] - Leadership Thank You Letter [facility] Prescriptions: - cefdinir 300 mg Oral capsule - take 1 capsule ORAL route 2 times per day for 7 days; 14 capsule; Refills: 0, mahesh Product Selection Permitted Signatures: Dispatcher [employer] Candido Barnes MD MD cha Calderon, Emily, RN RN aa5 Corrections: (The following items were deleted from the chart) 10: 10:10 PMHx: COVID; aa5 aa5 10:24 10:24 Urinalysis+U.LAB.BRZ ordered. EDMS EDMS 10:40 10:23 Chinchilla ordered. mahesh aa5 10:41 10:23 Ciprofloxacin PO 500 mg PO once ordered. mahesh dean5
--- NOTE | 2024-05-23 10:27 | ER ---
Nurse's Notes [facility] Name: Lisandro Livingston Age: 84 yrs Sex: Male : 1940 Arrival Date: 05/23/2024 Time: 09:46 Bed 6 Private MD: Diagnosis: Other mechanical complication of urinary (indwelling) catheter;Mechanical complication of urinary (indwelling) catheter;UTI/ Urinary tract infection, site not specified Presentation: 05/23 10:09 Chief complaint: Pt's son reports Humphreys catheter not draining this morning. Coronavirus aa5 screen: At this time, the client does not indicate any symptoms associated with coronavirus-19. Ebola Screen: Patient denies travel to an Ebola-affected area in the 21 days before illness onset. Initial Sepsis Screen: Does the patient meet any 2 criteria? No. Patient's initial sepsis screen is negative. Does the patient have a suspected source of infection? No. Patient's initial sepsis screen is negative. Risk Assessment: Do you want to hurt yourself or someone else? Patient reports no desire to harm self or others. Onset of symptoms was May 23, 2024. 10:09 Acuity: JUDIT 4 aa5 10:09 Method Of Arrival: Wheelchair aa5 Historical: - Allergies: 10:10 NKDA; aa5 - PMHx: 10:10 Bladder cancer; Cancer; Hypertension; kidney CA; PROSTATE CA; aa5 - PSHx: 10:10 Bladder Reconstruction; Cholecystectomy; aa5 - Immunization history:: Adult Immunizations unknown. - Infectious Disease History:: Denies. - Social history:: Smoking status: Patient denies any tobacco usage or history of. - Family history:: not pertinent. Screenin:[address] [facility] ED Fall Risk Assessment (Adult) History of falling in the last 3 months, aa5 including since admission No falls in past 3 months (0 pts) Confusion or Disorientation No (0 pts) Intoxicated or Sedated No (0 pts) Impaired Gait Yes (1 pt) Mobility Assist Device Used Yes (1 pt) Altered Elimination Yes (1 pt) Score/Fall Risk Level 3 or more points = High Risk Oriented to surroundings, Maintained a safe environment, Educated pt \\T\\ family on fall prevention, incl call for assistance when getting out of bed. Abuse screen: Denies threats or abuse. Nutritional screening: No deficits noted. Tuberculosis screening: No symptoms or risk factors identified. Assessment: 10:10 General: Appears comfortable, Behavior is calm, cooperative. Pain: Complains of pain in aa5 suprapubic area. Neuro: Level of Consciousness is awake, alert, obeys commands, Oriented to person, place, situation. Cardiovascular: Patient's skin is warm and dry. Respiratory: Airway is patent Respiratory effort is even, unlabored, Respiratory pattern is regular, symmetrical. GI: Abdomen is round non-distended, Abd is soft X 4 quads. : Humphreys in place 200mls of urine noted in Humphreys bag, pt's son states "normally there is about 800mls in the mornings when I empty the bag" Parent/caregiver report the patient having Humphreys not draining this morning. EENT: No signs and/or symptoms were reported regarding the EENT system. Derm: Skin is pink, warm \\T\\ dry. 11:15 Reassessment: Patient is alert, oriented x 3, equal unlabored respirations, skin aa5 warm/dry/pink. Vital Signs: 10:09 BP 132 / 60; Pulse 62; Resp 16 S; Temp 98.2(TE); Pulse Ox 99% on R/A; aa5 11:15 BP 130 / 64; Pulse 60; Resp 15 S; Temp 98(TE); Pulse Ox 99% on R/A; aa5 ED Course: 09:48 Patient arrived in ED. ra3 09:49 Candido Cook MD is Attending Physician. mahesh 10:01 Emily Gunderson, FAVIOLA is Primary Nurse. aa5 10:09 Triage completed. aa5 10:09 Arm band placed on. aa5 10:09 Patient has correct armband on for positive identification. Bed in low position. Call aa5 light in reach. Side rails up X2. Adult w/ patient. 10:40 Bladder irrigated via Humphreys with 500mls saline, returned moderate amount of aa5 sediment/mucus and Humphreys now draining properly. Patient tolerated well. 10:44 Mayank Hernandez MD is Referral Physician. mahesh 11:11 No provider procedures requiring assistance completed. Patient did not have IV access aa5 during this emergency room visit. Administered Medications: 10:41 CANCELLED (Physician Discretion): [id number] mg PO once aa5 11:15 Drug: Cefdinir PO 300 mg PO once Route: PO; aa5 11:15 Follow up: Response: Medication administered at discharge. aa5 Medication: 11:15 VIS not applicable for this client. aa5 Outcome: 10:27 Discharge ordered by . mahesh 11: Discharged to home via wheelchair, with son aa5 11:25 Condition: stable 11: Discharge instructions given to chief lending officer, Pt's son Instructed on discharge instructions, follow up and referral plans. medication usage, Demonstrated understanding of instructions, follow-up care, medications, Prescriptions given X 1, 11:29 Patient left the ED. aa5 Signatures: Candido Cook MD MD cha Calderon, Audri, RN RN aa5 Antonella Castellanos ra3 Corrections: (The following items were deleted from the chart) 10:10 10:10 PMHx: COVID; aa5 aa5 20:17 10:10 : Parent/caregiver report the patient having Humphreys not draining this morning. aa5 aa5
[2024-05-23] MEDS ORDERED: CEFDINIR 300 MG CAP PO ONE (11:06)
[2024-05-23 11:33] VITALS: BP 132/60; TEMP 98.2; O2SAT 99
== END 2024-05-23 11:29 | disposition home or self-care (01) ==
LOC: ER 09:46
DX: T83.098A Other mechanical complication of other urinary catheter, initial encounter (principal); N39.0 Urinary tract infection, site not specified
CPT/HCPCS: 51700; 99284

== ENCOUNTER 2024-05-28 13:51 | Emergency (ER) | payer OTHER ==
[2024-05-28 15:21] LABS: Absolute Eosinophils 0.1 K/uL (0-0.5); Absolute Lymphocytes (CBC) 1.1 K/uL (0.7-4.9); Absolute Monocytes 0.4 K/uL (0.1-1.3); Absolute Neutrophil 4.8 K/uL (1.8-8.0); Basophils % 0.6 % (0-1.3); Eosinophils % 1.4 % (0-4.4); Hematocrit 33.3 % (39.6-49.0); Lymphocytes % 16.8 % (15.3-44.8); MCH 28.8 pg (27.0-35.0); MCHC 32.8 g/dL (32.0-36.0); MCV 87.7 fL (80-100); MPV 7.4 fL (7.6-11.3); Monocytes % 6.4 % (3.3-12.3); Neutrophils % 74.8 % (41.7-73.7); Platelets 182 thou/uL (152-406); Red Cell Distribution Width 15.4 % (12.1-15.2)
[2024-05-28 15:37] LABS: Albumin 2.9 g/dL (3.4-5.0); Albumin/Globulin Ratio 0.8 (1.1-1.8); Bilirubin Total 0.5 mg/dL (0.2-1.0); Globulin 3.7 g/dL (2.3-3.5); Protein, Total 6.6 g/dL (6.4-8.2)
--- NOTE | 2024-05-28 17:00 | RAD REPORT ---
EXAMINATION: CT ABDOMEN AND PELVIS WITH CONTRAST CLINICAL INDICATION: Abdominal pain TECHNIQUE: CT abdomen and pelvis was performed, after the administration of 100 cc Isovue-300.. Sagit shalom and coronal reconstructions were obtained. One or more of the following dose reduction techniques were used: Automated exposure control, adjustment of the mA and kV according to patient si ze, and iterative reconstruction. Unless otherwise specified, incidental findings do not require dedicated imaging follow-up. [id number]. Oral contrast was not given which limits evaluation of bowel and appendix. COMPARISON: April 2024 FINDINGS: 3.4 cm right lower lobe nodule mildly increased in size.. 8 mm right middle lobe nodule mildly increased in size Small pericardial effusion. Minimal pleural effusions. 1.4 cm nodule region of the pancreatic neck mildly enlarged. Liver, spleen and adrenals unremarkable Tiny nonobstructing left calculi.. Left hydronephrosis has diminished and is mild. Cystectomy with ne obladder. Humphreys catheter within the neobladder. 10.5 cm necrotic right renal mass in size. The mass extends to the right psoas muscle as well as the posterior lower right ribs. Tumor thrombus right renal vein. Small amount of air is present. 3.5 cm mass left gluteus. 7 cm right sacral mass. Rectum is mildly to moderately distended with stool. No bowel obstruction 4.5 cm aneurysm aortic root. Lumbar spinal stenosis IMPRESSION: Right renal mass has enlarged. 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
[2024-05-28] MEDS ORDERED: FLEET ENEMA ADULT PR ONE (17:34)
--- NOTE | 2024-05-28 17:52 | ER ---
Nurse's Notes [facility] Name: Lisandro Livingston Age: 84 yrs Sex: Male : 1940 Arrival Date: 05/28/2024 Time: 13:51 Bed 15 Private MD: Diagnosis: Constipation Presentation: 05/28 14:12 Chief complaint: Patient's son or daughter states: Son states pt is constipated x 1 tl4 week with lower abdominal pain. Coronavirus screen: At this time, the client does not indicate any symptoms associated with coronavirus-19. Ebola Screen: No symptoms or risks identified at this time. Initial Sepsis Screen: Does the patient meet any 2 criteria? No. Patient's initial sepsis screen is negative. Does the patient have a suspected source of infection? No. Patient's initial sepsis screen is negative. Risk Assessment: Do you want to hurt yourself or someone else? Patient reports no desire to harm self or others. Onset of symptoms is unknown. 14:12 Method Of Arrival: Wheelchair tl4 14:12 Acuity: JUDIT 3 tl4 Triage Assessment: 14:13 General: Appears in no apparent distress. Behavior is calm. Pain: Complains of pain in tl4 abdomen. EENT: No signs and/or symptoms were reported regarding the EENT system. Neuro: Level of Consciousness is awake, alert, obeys commands, Oriented to person, place, situation. Cardiovascular: Capillary refill < 3 seconds Patient's skin is warm and dry. Respiratory: Airway is patent Respiratory effort is even, unlabored, Respiratory pattern is regular, symmetrical. GI: Reports lower abdominal pain, constipation. : No signs and/or symptoms were reported regarding the genitourinary system. Derm: No signs and/or symptoms reported regarding the dermatologic system. Musculoskeletal: No signs and/or symptoms reported regarding the musculoskeletal system. Historical: - Allergies: 14:13 NKDA; tl4 - PMHx: 14:13 Bladder cancer; Cancer; Hypertension; kidney CA; PROSTATE CA; tl4 - PSHx: 14:13 Bladder Reconstruction; Cholecystectomy; tl4 - Immunization history:: Adult Immunizations unknown. - Infectious Disease History:: Denies. - Social history:: Smoking status: Patient denies any tobacco usage or history of. Screenin:58 [facility] ED Fall Risk Assessment (Adult) History of falling in the last 3 months, db including since admission No falls in past 3 months (0 pts) Confusion or Disorientation No (0 pts) Intoxicated or Sedated No (0 pts) Impaired Gait Yes (1 pt) Mobility Assist Device Used No (0 pt) Altered Elimination Yes (1 pt) Score/Fall Risk Level 0 - 2 = Low Risk Oriented to surroundings, Maintained a safe environment. 15:01 Abuse screen: Denies threats or abuse. Denies injuries from another. Nutritional db screening: No deficits noted. Tuberculosis screening: No symptoms or risk factors identified. Assessment: 14:58 Reassessment: Patient appears in no apparent distress at this time. Patient and/or db family updated on plan of care and expected duration. Pain level reassessed. Patient is alert, oriented x 3, equal unlabored respirations, skin warm/dry/pink. General: Appears in no apparent distress. comfortable, Behavior is calm, cooperative. Neuro: Level of Consciousness is awake, alert, obeys commands, Oriented to person, place, time, situation. Respiratory: Airway is patent Respiratory effort is even, unlabored, Respiratory pattern is regular, symmetrical. 15:05 GI: db 16:00 Reassessment: Patient appears in no apparent distress at this time. Patient and/or db family updated on plan of care and expected duration. Pain level reassessed. 17:51 Reassessment: Patient appears in no apparent distress at this time. Patient and/or db family updated on plan of care and expected duration. Pain level reassessed. Patient is alert, oriented x 3, equal unlabored respirations, skin warm/dry/pink. GI: Bowel sounds present X 4 quads. Abd is soft. 17:54 Reassessment: PT DC PENDING PATIENT BOWEL MOVEMENT. db 18:15 Reassessment: Patient appears in no apparent distress at this time. Patient and/or db family updated on plan of care and expected duration. Pain level reassessed. PATIENT REPORTS SMALL STOOL RETURN. Vital Signs: 14:12 BP 121 / 57; Pulse 60; Resp 18; Temp 98.2(O); Pulse Ox 100% ; Weight 59.87 kg; tl4 14:30 BP 102 / 52; Pulse 52; Resp 16; Pulse Ox 97% on R/A; db 15:00 BP 104 / 50; Pulse 51; Resp 16; Pulse Ox 99% on R/A; db 15:30 BP 112 / 49; Pulse 50; Resp 16; Pulse Ox 98% on R/A; db 16:50 BP 116 / 43; Pulse 50; Resp 16; Pulse Ox 98% on R/A; db 17:30 BP 122 / 49; Pulse 52; Resp 16; Pulse Ox 100% on R/A; db ED Course: 14:02 Patient arrived in ED. tl4 14:05 Karin Singleton [facility]C [facility] kb 14:05 Jared Piedra MD is Attending Physician. kb 14:13 Triage completed. tl4 14:14 Arm band placed on right wrist. tl4 14:39 Cassi Vaughan, RN is Primary Nurse. db 14:45 Initial lab(s) drawn, by me, sent to lab. Inserted saline lock: 20 gauge in right db antecubital area, using aseptic technique. Blood collected. Flushed with 10 mL NS. 15:01 Patient has correct armband on for positive identification. Bed in low position. Call db light in reach. Side rails up X 1. Pulse ox on. NIBP on. Warm blanket given. Pillow given. 15:[address] via stretcher. db 16:15 CT Abd/Pelvis - IV Contrast Only In Process Unspecified. EDMS 18:30 Provided Education on: DISCHARGE. db 18:30 No provider procedures requiring assistance completed. IV discontinued, intact, db bleeding controlled, No redness/swelling at site. Administered Medications: 17:45 Drug: Fleet Enema GA 133 ml GA once Route: GA; db 18:30 Follow up: Response: No adverse reaction db Medication: 14:58 VIS not applicable for this client. db Outcome: 17:52 Discharge ordered by . kb 18:30 Discharged to home via wheelchair, with family, db 18:30 Condition: stable 18:30 Discharge instructions given to patient, family, solidworks designer, Instructed on discharge instructions, follow up and referral plans. Prescriptions given X 1, 18:33 Patient left the ED. eb Signatures: Dispatcher [employer] EDMS Karin Singleton FNP-C FNP-Ckb Botello, Elizabeth Cassi Vaughan, RN RN db Dedrick Mckeon RN RN tl4 Corrections: (The following items were deleted from the chart) 15:05 14:58 [facility] ED Fall Risk Assessment (Adult) History of falling in the last 3 months, db including since admission db : 14:58 General: Appears in no apparent distress. comfortable, Behavior is calm, db cooperative, db
--- NOTE | 2024-05-28 17:53 | EDPHYS ---
Physician Documentation [facility] Name: Lisandro Livingston Age: 84 yrs Sex: Male : 1940 Arrival Date: 05/28/2024 Time: 13:51 Bed 15 Private MD: ED Physician Jared Piedra HPI: 05/28 17:46 This 84 yrs old Male presents to ER via Wheelchair with complaints of kb Abdominal Pain. 17:46 Pt is an 84 year old male who presents for constipation that started a couple of days kb ago. Son reports he normally gives lactulose which is effective, but he ran out. States pt has abd pain, but that is probably due to his cancer. . Historical: - Allergies: 14:13 NKDA; tl4 - PMHx: 14:13 Bladder cancer; Cancer; Hypertension; kidney CA; PROSTATE CA; tl4 - PSHx: 14:13 Bladder Reconstruction; Cholecystectomy; tl4 - Immunization history:: Adult Immunizations unknown. - Infectious Disease History:: Denies. - Social history:: Smoking status: Patient denies any tobacco usage or history of. ROS: 17:45 Constitutional: As per HPI kb Exam: 17:45 Constitutional: This is a well developed, well nourished patient who is awake, alert, kb and in no acute distress. Head/Face: Normocephalic, atraumatic. ENT: Moist Mucous membranes Cardiovascular: Regular rate Respiratory: Respirations even and unlabored. No increased work of breathing. Talking in full sentences Skin: Warm, dry with normal turgor. Normal color. MS/ Extremity: Pulses equal, no cyanosis. Neurovascular intact. Full, normal range of motion. Neuro: Awake and alert, GCS 15, oriented to person, place, time, and situation. 17:45 Abdomen/GI: Inspection: abdomen appears normal, Bowel sounds: normal, Palpation: soft, in all quadrants, mild abdominal tenderness, in the right upper quadrant, right lower quadrant and left lower quadrant, Vital Signs: 14:12 BP 121 / 57; Pulse 60; Resp 18; Temp 98.2(O); Pulse Ox 100% ; Weight 59.87 kg; tl4 14:30 BP 102 / 52; Pulse 52; Resp 16; Pulse Ox 97% on R/A; db 15:00 BP 104 / 50; Pulse 51; Resp 16; Pulse Ox 99% on R/A; db 15:30 BP 112 / 49; Pulse 50; Resp 16; Pulse Ox 98% on R/A; db 16:50 BP 116 / 43; Pulse 50; Resp 16; Pulse Ox 98% on R/A; db 17:30 BP 122 / 49; Pulse 52; Resp 16; Pulse Ox 100% on R/A; db MDM: 14:06 Medical Screening Exam initiated kb 17:46 Differential diagnosis: bowel obstruction, constipation, chronic pain. Data reviewed: kb vital signs, nurses notes. Consideration of Admission/Observation Escalation of care including admission/observation considered. admission considered for worsening CA. Had a long discussion with pt's son (using the executive relations specialist line) who reports he is aware of worsening cancer/metastasis and they are not going to do any treatment. States he would just like a refill for the lactulose to treat the constipation. Discussed digital disimpaction due to stool at rectum. Son elected to have enema completed and then use the lactulose at home. . Historians other than the Patient: Daughter/Son: son. Counseling: I had a detailed discussion with the patient and/or guardian regarding the historical points, exam findings, and any diagnostic results supporting the discharge/admit diagnosis, lab results, radiology results, the need for outpatient follow up, a family practitioner, to return to the emergency department if symptoms worsen or persist or if there are any questions or concerns that arise at home. 05/28 14:14 Order name: CBC with Diff; Complete Time: 15:22 kb 05/28 14:14 Order name: CMP; Complete Time: 15:38 kb 05/28 14:14 Order name: Lipase; Complete Time: 15:38 kb 05/28 14:14 Order name: CT Abd/Pelvis - IV Contrast Only; Complete Time: 17:00 kb 05/28 14:14 Order name: IV Saline Lock; Complete Time: 14:52 kb 05/28 14:14 Order name: Labs collected and sent; Complete Time: 14:52 kb 05/28 15:06 Order name: Labs - recollect needed: recollect all the labs/ hemolyzed per Benjie hudson Complete Time: 15:07 Administered Medications: 17:45 Drug: Fleet Enema SD 133 ml SD once Route: SD; db 18:30 Follow up: Response: No adverse reaction db Disposition: 19:15 Co-signature as Attending Physician, Jared Piedra MD I reviewed the patient's care rt provided by the Advanced Practice Provider and agree with the diagnosis and treatment plan. Disposition Summary: 05/28/24 17:52 Discharge Ordered Notes: Location: Home kb Condition: Stable kb Diagnosis - Constipation kb Followup: kb - With: Emergency Department - When: As needed - Reason: Worsening of condition Followup: kb - With: Private Physician - When: 2 - 3 days - Reason: Recheck today's complaints, Continuance of care, Re-evaluation by your physician Discharge Instructions: - Discharge Summary Sheet kb - Constipation, Adult, Nemo-[id number] kb Forms: - Medication Reconciliation Form kb - Antibiotic Education kb - Prescription Opioid Use kb - Patient Portal Instructions kb - Leadership Thank You Letter kb Prescriptions: - Lactulose 10 gram/15 mL Oral solution - take 15 milliliter ORAL route every 12 hours; 200 milliliter; Refills: 0, kb Product Selection Permitted Signatures: Dispatcher [employer] EDKS Karin Singleton, TALENT PROGRAM MANAGER-C TALENT PROGRAM MANAGER-Diamond Malik Danielle, RN RN db Jared Piedra MD MD rt Dedrick Mckeon RN RN tl4
[2024-05-28 18:37] VITALS: TEMP 98.2
[2024-05-28 18:42] VITALS: BP 122/49; O2SAT 100
== END 2024-05-28 18:33 | disposition home or self-care (01) ==
LOC: ER 13:51
DX: K59.00 Constipation, unspecified (principal)
CPT/HCPCS: 85025; 36415; 83690; 80053; 74177; 99284; Q9967

== ENCOUNTER 2024-05-29 00:09 | Emergency (ER) | payer OTHER ==
[2024-05-29] MEDS ORDERED: MORPHINE 4 MG/ML SYR ONE (00:26)
[2024-05-29] MEDS ORDERED: ACETAMINOPHEN 500 MG TAB ONE (00:26)
--- NOTE | 2024-05-29 00:41 | EDPHYS ---
Physician Documentation [facility] Name: Lisandro Livingston Age: 84 yrs Sex: Male : 1940 Arrival Date: 05/29/2024 Time: 00:09 Bed 5 Private MD: ED Physician Efrain Soto HPI: 05/29 00:34 This 84 yrs old Male presents to ER via EMS with complaints of urinary issues. ec2 00:34 Patient with indwelling Humphreys catheter arrives today due to concern for inability to ec2 void and feels that his catheter is not appropriately flushing. Some lower abdominal pain. Was seen here earlier, external records show that he had a CT scan of the abdomen pelvis which showed worsening metastatic disease.. Historical: - Allergies: 00:20 NKDA; bm8 - PMHx: 00:20 Bladder cancer; Cancer; Hypertension; kidney CA; PROSTATE CA; bm8 - PSHx: 00:20 Bladder Reconstruction; Cholecystectomy; bm8 - Immunization history:: Adult Immunizations up to date. - Infectious Disease History:: Denies. - Social history:: Smoking status: Patient denies any tobacco usage or history of. ROS: 00:34 Constitutional: as per hpi ec2 Exam: 00:34 Constitutional: GEN: NAD Head: atraumatic Eyes: EOMI Ears: External ears are ec2 normal. CV: regular rate LUNGS: no respiratory distress ABD: non-distended, soft, Humphreys catheter in place SKIN: no evidence of rashes MSK: no evidence of trauma Vital Signs: 00:18 BP 113 / 49; Pulse 56; Resp 20; Temp 97.8; Pulse Ox 99% ; Weight 55.34 kg; Height 5 ft. bm8 7 in. ; Pain 10/10; 00:45 BP 104 / 44; Pulse 57; Resp 18; Temp 97.8; Pulse Ox 98% ; Pain 0/10; bm8 00:18 Body Mass Index 19.11 (55.34 kg, 170.18 cm) bm8 00:18 Pain Scale: Adult bm8 00:45 Pain Scale: Adult bm8 Shaye Coma Score: 00:45 Eye Response: spontaneous(4). Motor Response: obeys commands(6). Verbal Response: bm8 oriented(5). Total: 15. MDM: 00:13 Medical Screening Exam initiated ec2 00:34 Data reviewed: vital signs. ED course: Patient arrives today for abdominal discomfort ec2 along with feelings of inability to urinate. Will attempt to flush the catheter and give the patient pain medications for his cancer.. 00:39 ED course: Nursing able to flush the catheter without issue, was kinked proximally. I ec2 informed the patient and instructed him on appropriate catheter care. Will discharge home and follow-up PCP.. 05/29 00:14 Order name: Kenzie. Order: flush catheter; Complete Time: 00:45 ec2 Administered Medications: 00:44 Drug: morphine IM 4 mg IM once Route: IM; Site: right deltoid; bm8 00:49 Follow up: Response: No adverse reaction bm8 00:44 Drug: Acetaminophen PO 1000 mg PO once Route: PO; bm8 00:49 Follow up: Response: No adverse reaction bm8 Disposition Summary: 05/29/24 00:40 Discharge Ordered Notes: Location: Home ec2 Condition: Stable ec2 Diagnosis - Humphreys Catheter Issue ec2 Followup: ec2 - With: Private Physician - When: - Reason: Re-evaluation by your physician Discharge Instructions: - Discharge Summary Sheet ec2 - Indwelling Urinary Catheter Care, Adult, [id number] ec2 Forms: - Medication Reconciliation Form ec2 - Antibiotic Education ec2 - Prescription Opioid Use ec2 - Patient Portal Instructions ec2 - Leadership Thank You Letter ec2 Signatures: Efrain Soto MD MD ec2 Gonzales Sarkar RN RN bm8
--- NOTE | 2024-05-29 00:41 | ER ---
Nurse's Notes [facility] Name: Lisandro Livingston Age: 84 yrs Sex: Male : 1940 Arrival Date: 05/29/2024 Time: 00:09 Bed 5 Private MD: Diagnosis: Chinchilla Catheter Issue Presentation: 05/29 00:18 Chief complaint: EMS states: pt states he is having abd pain and doesn't feel like his bm8 bladder is emptying even with a chinchilla. Coronavirus screen: At this time, the client does not indicate any symptoms associated with coronavirus-19. Ebola Screen: Patient negative for fever greater than or equal to 101.5 degrees Fahrenheit, and additional compatible Ebola Virus Disease symptoms Patient denies exposure to infectious person. Patient denies travel to an Ebola-affected area in the 21 days before illness onset. No symptoms or risks identified at this time. Initial Sepsis Screen: Does the patient meet any 2 criteria? No. Patient's initial sepsis screen is negative. Does the patient have a suspected source of infection? No. Patient's initial sepsis screen is negative. Risk Assessment: Do you want to hurt yourself or someone else? Patient reports no desire to harm self or others. Onset of symptoms is unknown. 00:18 Method Of Arrival: EMS: [facility] bm8 00:18 Acuity: JUDIT 3 bm8 Triage Assessment: 00:20 General: Appears in no apparent distress. uncomfortable, Behavior is calm, cooperative, bm8 appropriate for age. Pain: Complains of pain in right lower quadrant, left lower quadrant, groin and suprapubic area Pain currently is 10 out of 10 on a pain scale. EENT: No deficits noted. No signs and/or symptoms were reported regarding the EENT system. Neuro: No deficits noted. Level of Consciousness is awake, alert, obeys commands, Oriented to person, place, time, situation, Appropriate for age. Cardiovascular: No deficits noted. Respiratory: No deficits noted. GI: Abdomen is flat, non-distended, Bowel sounds present X 4 quads. Reports lower abdominal pain, Pain is 10 out of 10 on a pain scale. : 3-way catheter in place Reports inability to void, clear urine noted in chinchilla bag. Derm: No signs and/or symptoms reported regarding the dermatologic system. Musculoskeletal: No signs and/or symptoms reported regarding the musculoskeletal system. Historical: - Allergies: 00:20 NKDA; bm8 - PMHx: 00:20 Bladder cancer; Cancer; Hypertension; kidney CA; PROSTATE CA; bm8 - PSHx: 00:20 Bladder Reconstruction; Cholecystectomy; bm8 - Immunization history:: Adult Immunizations up to date. - Infectious Disease History:: Denies. - Social history:: Smoking status: Patient denies any tobacco usage or history of. Screenin:45 [facility] ED Fall Risk Assessment (Adult) History of falling in the last 3 months, bm8 including since admission Yes- physiologic fall (2 pts) Confusion or Disorientation No (0 pts) Intoxicated or Sedated No (0 pts) Impaired Gait Yes (1 pt) Mobility Assist Device Used No (0 pt) Altered Elimination No (0 pt) Score/Fall Risk Level 0 - 2 = Low Risk Oriented to surroundings, Maintained a safe environment, Educated pt \T\ family on fall prevention, incl call for assistance when getting out of bed, Assessed \T\ reinforced patient's understanding of fall precautions, Hourly rounding (assess needs \T\ fall precautionary measures) done, Used ambulatory aids as needed (educated on \T\ assisted with), Used gait belt as appropriate. Abuse screen: Denies threats or abuse. Nutritional screening: No deficits noted. Tuberculosis screening: No symptoms or risk factors identified. Assessment: 00:45 Reassessment: flushed pt's Chinchilla three times 300 of ml urine return and pt states his bm8 pain is gone now. Patient states feeling better. Patient states symptoms have improved. Vital Signs: 00:18 BP 113 / 49; Pulse 56; Resp 20; Temp 97.8; Pulse Ox 99% ; Weight 55.34 kg; Height 5 ft. bm8 7 in. ; Pain 10/10; 00:45 BP 104 / 44; Pulse 57; Resp 18; Temp 97.8; Pulse Ox 98% ; Pain 0/10; bm8 00:18 Body Mass Index 19.11 (55.34 kg, 170.18 cm) bm8 00:18 Pain Scale: Adult bm8 00:45 Pain Scale: Adult bm8 Alloy Coma Score: 00:45 Eye Response: spontaneous(4). Motor Response: obeys commands(6). Verbal Response: bm8 oriented(5). Total: 15. ED Course: 00:12 Patient arrived in ED. rv1 00:13 Efrain Soto MD is Attending Physician. ec2 00:18 Gonzales Sarkar, RN is Primary Nurse. bm8 00:20 Triage completed. bm8 00:20 Arm band placed on right wrist. bm8 00:45 Patient has correct armband on for positive identification. Placed in gown. Bed in low bm8 position. Call light in reach. Side rails up X 1. Provided Education on: post er care. Client placed on continuous cardiac and pulse oximetry monitoring. NIBP monitoring applied. Pulse ox on. NIBP on. Door closed. Noise minimized. Warm blanket given. Pillow given. Verbal reassurance given. Head of bed elevated. 00:45 No provider procedures requiring assistance completed. Patient did not have IV access bm8 during this emergency room visit. Administered Medications: 00:44 Drug: morphine IM 4 mg IM once Route: IM; Site: right deltoid; bm8 00:49 Follow up: Response: No adverse reaction bm8 00:44 Drug: Acetaminophen PO 1000 mg PO once Route: PO; bm8 00:49 Follow up: Response: No adverse reaction bm8 Medication: 00:45 VIS not applicable for this client. bm8 Outcome: 00:40 Discharge ordered by . ec2 00:45 Discharged to home ambulatory, bm8 00:45 Condition: stable 00:45 Condition: stable 00:45 Discharge instructions given to patient, family, Instructed on discharge instructions, follow up and referral plans. medication usage, Demonstrated understanding of instructions, follow-up care, 01:03 Patient left the ED. bm8 Signatures: Manasa Pickard rv1 Efrain Soto MD MD ec2 Gonzales Sarkar, RN RN bm8
[2024-05-29 02:01] VITALS: BP 104/44; TEMP 97.8; O2SAT 98
== END 2024-05-29 01:03 | disposition home or self-care (01) ==
LOC: ER 00:09
DX: T83.098A Other mechanical complication of other urinary catheter, initial encounter (principal)
CPT/HCPCS: 96372; 99284

== ENCOUNTER 2024-06-20 08:16 | Emergency (ER) | payer OTHER ==
--- NOTE | 2024-06-20 08:47 | EDPHYS ---
Physician Documentation [facility] Name: Lisandro Livingston Age: 84 yrs Sex: Male : 1940 Arrival Date: 06/20/2024 Time: 08:16 Bed 17 Private MD: ED Physician Aristides García HPI: 06/20 08:44 This 84 yrs old Male presents to ER via Wheelchair with complaints of Flank ms3 Pain. 08:44 The patient presents to the Emergency Department with issues related to a urinary ms3 catheter that was not flowing this morning. The catheter was last changed approximately one month ago. The patient has a history of prostate cancer and kidney stones. He reports not experiencing any fevers, chills, nausea, or vomiting.. Historical: - Allergies: 08:37 NKDA; iw - PMHx: 08:37 Bladder cancer; Cancer; Hypertension; kidney CA; PROSTATE CA; iw - PSHx: 08:37 Bladder Reconstruction; Cholecystectomy; iw - Immunization history:: Adult Immunizations up to date. - Infectious Disease History:: Denies. - Social history:: Smoking status: unknown. ROS: 08:42 Constitutional: Negative for fever, and chills. Cardiovascular: Negative for chest ms3 pain, and palpitations. Respiratory: Negative for shortness of breath, cough, wheezing, and pleuritic chest pain, Abdomen/GI: Negative for abdominal pain, nausea, vomiting, diarrhea, and constipation, MS/Extremity: Negative for injury and deformity, Skin: Negative for injury, rash, and discoloration, Exam: 08:42 Constitutional: This is a well developed, well nourished patient who is awake, alert, ms3 and in no acute distress. Chest/axilla: Normal chest wall appearance and motion. Nontender with no deformity. Cardiovascular: Regular rate and rhythm with a normal S1 and S2. No gallops, murmurs, or rubs. Normal PMI, no JVD. No pulse deficits. Respiratory: Lungs have equal breath sounds bilaterally, clear to auscultation and percussion. No rales, rhonchi or wheezes noted. No increased work of breathing, no retractions or nasal flaring. Skin: Warm, dry with normal turgor. Normal color with no rashes, no lesions, and no evidence of cellulitis. Vital Signs: 08:35 BP 154 / 71; Pulse 86; Resp 16; Temp 98; Pulse Ox 100% on R/A; iw MDM: 08:39 Medical Screening Exam initiated ms3 08:42 Differential diagnosis: Humphreys catheter change vs Humphreys cath malfunction. Data reviewed: ms3 vital signs, nurses notes, and as a result, I will discharge patient. Historians other than the Patient: Family Member: Patient's son. Counseling: I had a detailed discussion with the patient and/or guardian regarding the historical points, exam findings, and any diagnostic results supporting the discharge/admit diagnosis, the need for outpatient follow up, to return to the emergency department if symptoms worsen or persist or if there are any questions or concerns that arise at home. Special discussion: I discussed with the patient/guardian in detail that at this point there is no indication for admission to the hospital. It is understood, however, that if the symptoms persist or worsen the patient needs to return immediately for re-evaluation. ED course: Discussed with patient and his son we will change patient's Humphreys catheter as it has not been changed in 1 month. Patient to follow-up with his primary care physician 2 to 3 days. All questions were answered. Return precautions discussed include worsening symptoms, or any other concerns.. 12 08:41 Order name: Petr; Complete Time: 09:20 ms3 Administered Medications: No medications were administered Disposition Summary: 06/20/24 08:46 Discharge Ordered Notes: Location: Home ms3 Condition: Stable ms3 Diagnosis - Humphreys catheter malfunction ms3 Followup: ms3 - With: Private Physician - When: 2 - 3 days - Reason: Recheck today's complaints Discharge Instructions: - Discharge Summary Sheet ms3 - Indwelling Urinary Catheter Care, Adult ms3 Forms: - Medication Reconciliation Form ms3 - Antibiotic Education ms3 - Prescription Opioid Use ms3 - Patient Portal Instructions ms3 - Leadership Thank You Letter ms3 Signatures: Meagan Kong, RN RN Aristides Ham DO DO ms3 Hilary Cristina RN RN kc6
--- NOTE | 2024-06-20 08:47 | ER ---
Nurse's Notes [facility] Name: Lisandro Livingston Age: 84 yrs Sex: Male : 1940 Arrival Date: 06/20/2024 Time: 08:16 Bed 17 Private MD: Diagnosis: Chinchilla catheter malfunction Presentation: 06/20 08:35 Chief complaint: Patient's son or daughter states: his catheter stopped flowing this iw morning , hx of prostate cancer, has had catheter in place since December. Coronavirus screen: At this time, the client does not indicate any symptoms associated with coronavirus-19. Ebola Screen: No symptoms or risks identified at this time. Risk Assessment: Do you want to hurt yourself or someone else? Patient reports no desire to harm self or others. 08:35 Method Of Arrival: Wheelchair iw 08:35 Acuity: JUDIT 3 iw 09:22 Initial Sepsis Screen: Does the patient meet any 2 criteria? No. Patient's initial kc6 sepsis screen is negative. Does the patient have a suspected source of infection? No. Patient's initial sepsis screen is negative. Onset of symptoms was June 20, 2024. Historical: - Allergies: 08:37 NKDA; iw - PMHx: 08:37 Bladder cancer; Cancer; Hypertension; kidney CA; PROSTATE CA; iw - PSHx: 08:37 Bladder Reconstruction; Cholecystectomy; iw - Immunization history:: Adult Immunizations up to date. - Infectious Disease History:: Denies. - Social history:: Smoking status: unknown. Screenin:21 [facility] ED Fall Risk Assessment (Adult) History of falling in the last 3 months, kc6 including since admission No falls in past 3 months (0 pts) Confusion or Disorientation No (0 pts) Intoxicated or Sedated No (0 pts) Impaired Gait Yes (1 pt) Mobility Assist Device Used Yes (1 pt) Altered Elimination Yes (1 pt) Score/Fall Risk Level 3 or more points = High Risk Oriented to surroundings, Maintained a safe environment, Educated pt \T\ family on fall prevention, incl call for assistance when getting out of bed. Abuse screen: Denies threats or abuse. Denies injuries from another. Nutritional screening: No deficits noted. Tuberculosis screening: No symptoms or risk factors identified. Assessment: 08:45 General: Appears in no apparent distress. comfortable, slender, Behavior is calm, kc6 cooperative, appropriate for age. Pain: Denies pain. Neuro: Level of Consciousness is awake, alert, obeys commands, Oriented to person, place, time, situation, Appropriate for age. Cardiovascular: Capillary refill < 3 seconds. Respiratory: Airway is patent Trachea midline Respiratory effort is even, unlabored, Respiratory pattern is regular, symmetrical. GI: No signs and/or symptoms were reported involving the gastrointestinal system. : Chinchilla in place to gravity drainage clamped Urine is cloudy. EENT: No signs and/or symptoms were reported regarding the EENT system. Derm: No signs and/or symptoms reported regarding the dermatologic system. Skin is fragile, is thin, with poor turgor Skin is dry, Skin is normal, Skin temperature is warm. Musculoskeletal: No signs and/or symptoms reported regarding the musculoskeletal system. Circulation, motion, and sensation intact. Capillary refill < 3 seconds, Range of motion: intact in all extremities. Vital Signs: 08:35 BP 154 / 71; Pulse 86; Resp 16; Temp 98; Pulse Ox 100% on R/A; iw ED Course: 08:26 Patient arrived in ED. mg5 08:27 Aristides García DO is Attending Physician. ms3 08:37 Triage completed. iw 08:37 Arm band placed on. iw 09:15 Removal of chinchilla catheter. kc6 09:20 Hilary Cristina, RN is Primary Nurse. kc6 09:20 Patient has correct armband on for positive identification. Bed in low position. Call kc6 light in reach. Side rails up X2. Adult w/ patient. Pulse ox on. NIBP on. Door closed. Noise minimized. Lights dimmed. Pillow given. Diet: Patient given water. Tolerated well. 09:20 Chinchilla cath inserted, using sterile technique, 18 Fr., by ok, balloon inflated, to kc6 gravity drainage, clamped. returned cloudy urine. Patient tolerated well. 09:54 No provider procedures requiring assistance completed. Patient did not have IV access kc6 during this emergency room visit. Administered Medications: No medications were administered Medication: 09:54 VIS not applicable for this client. kc6 Outcome: 08:46 Discharge ordered by . ms3 09:54 Discharged to home via wheelchair, with family, kc6 09:54 Condition: good 09:54 Discharge instructions given to patient, family, Instructed on discharge instructions, follow up and referral plans. Demonstrated understanding of instructions, follow-up care, 09:55 Patient left the ED. kc6 Signatures: Meagan Kong RN Aristides Andrade DO DO ms3 Hilary Cristina RN RN kc6 Princess Alex mg5
[2024-06-20 10:13] VITALS: BP 154/71; TEMP 98; O2SAT 100
== END 2024-06-20 09:55 | disposition home or self-care (01) ==
LOC: ER 08:16
DX: T83.091A Other mechanical complication of indwelling urethral catheter, initial encounter (principal)
CPT/HCPCS: 51702; 99284